=== PATIENT | female | born 1970 | race Caucasian/White ===

== ENCOUNTER 2018-01-03 19:24 | Emergency (ER) | payer OTHER, SELFPAY ==
[2018-01-03 19:25] VITALS: BP 149/78; PULSE 83; RESP 16; TEMP 36.7; O2SAT 98; BMI 34.7
[2018-01-03 20:08] VITALS: BP 121/66; PULSE 66; RESP 14; O2SAT 99
--- NOTE | 2018-01-03 20:32 | ED.VISSUMM ---
- ER Visit Summary Date of Service: 01/03/18 Chief Complaint: Left iliac crest skin rash History of Present Illness: The patient is a 47 F history of prior shingles 6 years ago. Pamella went to an urgent care. Was diagnosed with shingles. She said started last night became painful and worse today. Denies any other symptoms. Urgent care put on medications she did not have before and was concerned that these work the right medications acute in the ER for evaluation. Physical Examination: Well-appearing middle-age female. Vital signs are stable afebrile. HEENT exam unremarkable. Neck nontender no lymphadenopathy. Lungs clear to auscultation bilaterally. Heart regular rate and rhythm no murmur. Abdomen soft nontender normal bowel sounds no rash. Back her left iliac crest flank area has a linear rash consistent with early shingles. Currently there is no vesicles. There is no crusting. There is no petechiae or purpura. There is no pus or discharge. It is in a dermatomal pattern. Neurological exam is normal. Test Results: None Emergency Department Course and Treatment: Discharge to home Treatment Plan: Famvir and [place] for pain. Disposition: Discharge Impression: Acute left iliac crest skin rash consistent with early shingles This note was generated with [employer] dictation software. It may contain incorrect words, spelling, and punctuation that were not noted in review of the chart prior to signing ED Disposition - Plan for ED Patient: Chief Complaint: Rash Referrals: Jaycee Hall NP-C [Primary Care Provider] -
--- NOTE | 2018-01-03 20:34 | ED.DEP ---
ED Disposition - Plan for ED Patient: Disposition: Home or Assisted Living Chief Complaint: Rash Instructions: ED Shingles Prescriptions: Hydrocodone Bitart/Apap 5-325 [[place] 5/325] 1 - 2 tab PO Q4H PRN PRN #20 tab PRN Reason: Pain Famciclovir [Famvir] 500 mg PO TID 7 Days tab Referrals: Jaycee Hall, MARINE STEWARD-C [Primary Care Provider] - As Needed
[2018-01-03 20:41] VITALS: PULSE 72; RESP 14; O2SAT 98
[2018-01-03] MEDS: HYDROcodone Bitartrate/Apap 5/325 Tablet PO (20:41)
== END 2018-01-03 20:42 | disposition home or self-care (01) ==
PROVIDERS: Emergency Provider Emergency Medicine
DX: B02.9 Zoster without complications (principal); R21 Rash and other nonspecific skin eruption; Z72.0 Tobacco use
CPT/HCPCS: 99283

== ENCOUNTER 2018-06-25 17:11 | Emergency (ER) | payer OTHER, SELFPAY ==
[2018-06-25 17:12] VITALS: BP 138/98; PULSE 103; RESP 14; TEMP 33.2; O2SAT 97; BMI 33.7
--- NOTE | 2018-06-25 17:42 | ED.DCSUM_ITS ---
- ER Visit Summary Date of Service: 06/25/18 Chief Complaint: Nausea, vomiting, diarrhea History of Present Illness: The patient is a 47 F presents with nausea symptoms for 4 days. Symptoms started after eating breakfast at the parlor. Vomiting started next day total 4 episodes with no hematemesis. [place] well on Sunday. States yesterday had nausea. Today had 3 loose stools and 3 emesis. Unable to hold fluids down. Abdominal cramping secondary to the vomiting diarrhea. No sick contacts. Patient postmenopausal for 2 years. No allergies. Physical Examination: General: Alert and oriented ?3, no acute distress HEENT: Normocephalic, atraumatic. Mild dry mucosa membranes Neck: supple, nontender. Cardiovascular: Regular rate and rhythm, no murmurs Respiratory: Normal breath sounds, symmetric, no distress Abdomen: Soft, nontender, nondistended. Negative Blunt's or McBurney's tenderness. Extremities: Nontender, no edema, pulses intact ?4 Neuro: no focal neurological deficits. Test Results: Abdominal labs stable. Urine noted leukocytes however 10-25 squamous cells. Urine culture sent. Emergency Department Course and Treatment: Patient with a nonsurgical abdomen. She given IV fluid Zofran. Labs are stable. Urine had leukocytes however squamous cells. Urine culture sent. We will not treat at this time. She states she has had decreased urine output however no symptoms. Reevaluate states had mild cramping resolved with Levsin. She is orally challenge with no difficulties. Reevaluation abdomen soft. Treated symptomatically continue oral hydration at home. Follow-up as an outpatient. Signs and symptoms discussed questions answered. Treatment Plan: [] Disposition: Discharge Impression: 1. Nausea, vomiting, diarrhea 2. Nonspecific abdominal pain This note was generated with [employer] dictation software. It may contain incorrect words, spelling, and punctuation that were not noted in review of the chart prior to signing ED Disposition - Plan for ED Patient: Disposition: Home or Assisted Living Chief Complaint: Abd Pain Diagnosis: Nausea vomiting and diarrhea, Abdominal pain Instructions: ED Vomiting Diarrhea Nonspecific Ad Prescriptions: Ondansetron [Zofran Odt] 8 mg PO Q8H PRN PRN #10 tab PRN Reason: Nausea Dicyclomine HCl [Bentyl] 10 mg PO TIDAC PRN #10 capsule PRN Reason: abdominal cramping Referrals: Care Physician,No Primary [NON-STAFF] - Bernard Tesfaye MD [Primary Care Provider] - 3-5 Days if not improving
[2018-06-25] MEDS: Ondansetron 4 MG/2 ML Vial IV (17:53)
[2018-06-25] MEDS: 0.9% Normal Saline 1,000 ML 1000 ML IV (17:53)
[2018-06-25 18:04] LABS: Color, Urine Yellow (Yellow); Glucose, Dipstick Normal (Normal); Ketone-Dipstick Negative (Negative); Leukocyte Esterase-Dipstick 25 /ul (Negative); Nitrite-Dipstick Negative (Negative); Occult Blood-Urine 10 /ul (Negative); Protein-Dipstick 30 mg/dl (Negative); Urine Bilirubin Dipstick Negative (Negative); Urine Clarity Cloudy (Clear); Urine Urobilinogen 1 mg/dl (Normal)
[2018-06-25 18:14] LABS: Absolute Neutrophil Count 10.5 X10^3/uL (2.0-7.7); Basophil# 0.01 X10^3/uL; Basophil% 0.1 % (0-1); Differential Indicated SCAN CRITERIA MET; Eosinophil# 0.04 X10^3/uL; Eosinophils% 0.4 % (0-5); Hematocrit 42.5 % (37-47); Hemoglobin 14.8 g/dl (12.0-15.0); Lymphocyte % 3.5 % (19-41); Mean Corp Hgb Conc 34.8 g/gl (32-36); Mean Platelet Vol. 9.9 fl (6.2-12.0); Monocyte# 0.41 X10^3/uL; Monocyte% 3.6 % (0-10); Neutrophil # 10.54 X10^3/uL (2.7-7.7); Neutrophil % 92.2 % (47-70); POSITIVE COUNT NO; POSITIVE DIFFERENTIAL YES; POSITIVE MORPHOLOGY NO; Platelet Count 182 K/mm3 (150-450); RBC Distribution Width CV 13.3 % (11.6-14.6); Red Blood Count 4.94 M/mm3 (4.2-5.4); White Blood Count 11.4 K/mm3 (4.4-11.0)
[2018-06-25 18:26] LABS: AST(SGOT) 14 U/L (15-37); Alanine Aminotransfer ALT/SGPT 19 U/L (13-56); Albumin, Serum 3.7 g/dL (3.2-5.0); Alkaline Phosphatase 77 U/L (45-117); Anion Gap 6 (5-15); BUN 17 mg/dL (7-18); BUN/Creat Ratio 21.3 RATIO (10-20); Calcium,Total 8.3 mg/dL (8.5-10.1); Chloride 108 mmol/L (98-107); EST Glomerular Filtration Rate 82 mL/min (>60); Est Glom Filt Rate - Afr Amer 99 mL/min (>60); Estimated Creatinine Clearance 78.23 ml/min; Globulin 3.6 g/dL (2.2-4.2); Glucose 102 mg/dL (74-106); Lipase 166 U/L (73-393); Potassium 4.1 mmol/L (3.5-5.1); Protein, Total 7.3 g/dL (6.4-8.2); Sodium Level 140 mmol/L (136-145)
[2018-06-25 18:30] LABS: Differential Comment SCANNED
[2018-06-25 18:34] LABS: Bacteria 3+ /hpf (None Seen); Mucous, Urine 4+ /hpf (<or=2+); Red Blood Cells-Urine 0-5 SEEN /hpf (0-5); Squamous Epithelial Cells - UA 10-25 SEEN /hpf (5-10); White Blood Cells 0-5 SEEN /hpf (0-5)
[2018-06-25] MEDS: Hyoscyamine Sulfate 0.125 MG Tablet SUBLINGUAL (19:44)
[2018-06-25 21:01] VITALS: BP 139/72; PULSE 88; RESP 16; O2SAT 99
== END 2018-06-25 21:02 | disposition home or self-care (01) ==
PROVIDERS: Emergency Provider Emergency Medicine; Family Provider Family Medicine; PCP Family Medicine
DX: R11.2 Nausea with vomiting, unspecified (principal); R19.7 Diarrhea, unspecified; R10.9 Unspecified abdominal pain; R61 Generalized hyperhidrosis; Z78.0 Asymptomatic menopausal state; F17.200 Nicotine dependence, unspecified, uncomplicated
CPT/HCPCS: 80053; 81001; 83690; 85025; 87086; 87088; 96361; 96374; 99285; J7030; J2405

== ENCOUNTER → 2018-11-13 08:18 | Outpatient (CLI) | payer OTHER, SELFPAY ==
[2018-11-07 09:16] VITALS: BMI 33.7
--- NOTE | 2018-11-13 08:22 | RAD_ITS ---
STUDY: AIR-CONTRAST UPPER GI SERIES. REASON FOR EXAM: Female, 48 years old. Gastroesophageal reflux disease and dysphagia for solids. FLUOROSCOPY TIME (if supplied): (0:36) minutes/seconds. 21 images were obtained. TECHNIQUE: The patient ingested barium. Multiple images of the esophagus, stomach and duodenum were obtained. COMPARISON: None. FINDINGS: The esophagus is unremarkable. There is no evidence of obstruction. No mass lesion is seen. There is no evidence of gastroesophageal reflux. The stomach and duodenum are unremarkable. There is no mass lesion. No evidence of ulceration. RAD/Upper GI Series Only IMPRESSION: Unremarkable air-contrast upper GI series. Electronically Signed: Carlitos Roberts, at 13:19 EST , Service support ,
== END ==
PROVIDERS: Referring Provider Surgery; Visit Provider Surgery
DX: K21.9 Gastro-esophageal reflux disease without esophagitis (principal)
CPT/HCPCS: 74246

== ENCOUNTER 2018-11-22 10:18 | Day surgery (SDC) | payer OTHER, SELFPAY ==
[2018-11-07 09:16] VITALS: BMI 33.7
[2018-11-22] VITALS (15 sets, daily range): BP systolic 93–123; BP diastolic 54–101; PULSE 68–83; RESP 16–20; TEMP 35.9–36.6; O2SAT 92–100; BMI 36.2
--- NOTE | 2018-11-22 11:30 | IMM_PTH ---
PATIENT: YENY CERON LOC: [facility] U#:[id number] AGE/SX: 48/F ROOM: RE11/22/[address]: Dr. Blanca Mcguire MD : 1970 BED: DIS: 11/22/2018 SPEC #: [id number] RECD: 11/22/18 15:20 STATUS: LEVON REQ #: [id number] RISHABH: 11/22/18 11:[address]: Blanca Mcguire DEPT: IMMUNOHISTOCHEMISTRY RECD BY: Scarlet Steiner ENTERED: 11/22/18 15:20 SP TYPE: IMMUNO OTHR DR: Jaycee Hall, CONTRACT RUNNER-C [facility] Tissues: A - Stomach, NOS Procedures: H Pylori (initial) PHYSICIAN & INSTITUTION [place] [address] SPECIMEN INFORMATION: Tissue Source: A - Antral biopsy Clinical Info: GERD Specimen Number: [id number] CPT code: 32569 METHODOLOGY: Deparaffinized sections of prefer/formalin-fixed tissue or PAP/DQ stained slides are incubated with monoclonal/polyclonal antibodies/oligonucleotide probes. Localization is made via biotin free immunoperoxidase method. Appropriate controls are performed and reacted as expected. Results on target cell population are indicated in the following table: RESULTS: ANTIBODY / CLONE RESULT Block A H Pylori (polyclonal) negative These tests were developed and their performance characteristics determined by [facility]. They may not have been cleared or approved by the U.S. Food and Drug Administration. The FDA has determined that such clearance or approval is not necessary. INTERPRETATION: A. Antral biopsy: Negative for Helicobacter pylori organisms. SJ:twan 11/25/18
--- NOTE | 2018-11-22 11:30 | EGD_PTH ---
PATIENT: YENY CERON LOC: EN U#:[id number] AGE/SX: 48/F ROOM: RE11/22/[address]: Dr. Blanca Mcguire MD : 1970 BED: DIS: 11/22/2018 SPEC #: [id number] RECD: 11/22/18 13:29 STATUS: LEVON MILADY #: [id number] RISHABH: 11/22/18 11:[address]: Blanca Mcguire DEPT: SURGICAL PATHOLOGY RECD BY: Jose Cobian ENTERED: 11/22/18 14:06 SP TYPE: EGD BIOPSY JESSICA DR: Jaycee Hall, DRAW FRAME OPERATOR-C [facility] Tissues: A - Gastric mucous membrane B - Gastric mucous membrane Procedures: Surgery Specimen Level IV HEADER [place] [place] DIAGNOSIS: GERD TISSUE SUBMITTED: A - Antral biopsy for histo and H. pylori, B - GE junction biopsy MICROSCOPIC DIAGNOSIS A. Antral biopsy: Mild gastritis. See microscopic description and comment. B. GE junction, biopsy: Fragments of squamous epithelium with changes consistent with gastroesophageal reflux disease. Increased number of eosinophils are also noted suspicious for eosinophilic esophagitis. SJ:twan 11/25/18 COMMENT A. The results of immunohistochemistry for Helicobacter pylori will be reported separately ([id number]). Correlation with clinical, endoscopic findings and appropriate follow up are necessary. MICROSCOPIC DESCRIPTION Slides are reviewed. A. The specimen shows fragments of gastric mucosa with chronic inflammatory cell infiltrates in the lamina propria consisting of lymphocytes and plasma cells, consistent with mild chronic gastritis. GROSS DESCRIPTION A - Received in fixative is one container labeled with the patient's name and designated antral biopsy. The specimen consists of one irregular fragment of light lees soft tissue that measures 0.4 x 0.3 x 0.1 cm. The specimen is totally submitted in one cassette. B - Received in fixative is one container labeled with the patient's name and designated GE junction biopsy. The specimen consists of two irregular fragments of light lees soft tissue that in aggregate measure 0.6 x 0.3 x 0.1 cm. The specimen is totally submitted in one cassette. / AVA:twan 11/22/18 TC:3 CPT: 53815 x2
--- NOTE | 2018-11-22 11:48 | OP.ENDO_ITS ---
11/22/2018 Bernard Tesfaye Re : Upper GI endoscopy procedure for Mónica Tesfaye This procedure was performed on Thursday, November 22, 2018. My impressions and recommendations are as follows: Impressions : - Normal examined duodenum. - Erythematous mucosa in the antrum. Biopsied. - Z-line variable. Biopsied. Recommendations : - Discharge patient to home. - Await pathology results. - Continue present medications. My findings are described in the full procedure note, which is enclosed. If I can be of further assistance, please feel free to contact me at Doctor phone number(s): , Work: . Sincerely, MD Blanca Stone MD 11/22/2018 11:48:05 AM This report has been signed electronically.
--- NOTE | 2018-11-22 12:09 | RAD_ITS ---
STUDY: X-RAY CHEST REASON FOR EXAM: Female, 48 years old. Postop cough. TECHNIQUE: Single AP portable view of the chest. COMPARISON: PA and lateral chest x-ray June 22, 2015. FINDINGS: The lungs are mildly less fully expanded today. There is minor stranding consistent with regional crowding versus mild inflammatory change in the left midlung. No consolidating infiltrate. There is no demonstrated pleural abnormality. Normal size heart. Normal mediastinum and parisa. Normal visualized pulmonary arteries. Normal visualized aortic arch and descending thoracic aorta. There are stable degenerative changes of the lowermost thoracic spine. Normal visualized ribs, clavicles, and shoulders. There is no demonstrated abnormality of the visualized soft tissue structures of the upper abdomen. RAD/Chest 1 View (Portable) IMPRESSION: Suboptimal inspiratory effort with regional crowding versus mild interstitial inflammatory change in the left midlung. Electronically Signed: Anderson Hill MD at 13:06 EDT , Service support ,
[2018-11-22] MEDS: Albuterol 2.5 MG/3 ML VIAL.NEB. INHALATION (12:26)
== END 2018-11-22 14:18 | disposition home or self-care (01) ==
LOC: EN 10:19 → AC 10:21
PROVIDERS: Referring Provider Surgery; Visit Provider Surgery
PROC: 0DJ08ZZ Inspection of Upper Intestinal Tract, Via Natural or Artificial Opening Endoscopic (ICD-10-PCS; CPT 43235; principal; 2018-11-22 11:25)
DX: K21.9 Gastro-esophageal reflux disease without esophagitis (principal); R13.10 Dysphagia, unspecified; K29.70 Gastritis, unspecified, without bleeding; Z87.891 Personal history of nicotine dependence
CPT/HCPCS: 43239; 71045; 88305; 88342; 94640; J7120; J2405

== ENCOUNTER 2019-06-03 23:56 | Emergency (ER) | payer OTHER, SELFPAY ==
[2018-11-22 10:36] VITALS: BMI 36.2
[2019-06-03 23:57] VITALS: BP 152/88; PULSE 64; RESP 16; TEMP 36.8; O2SAT 99; BMI 37.1
--- NOTE | 2019-06-04 00:21 | RAD_ITS ---
STUDY: X-RAY - RIGHT FOOT CLINICAL: Female, 48 years old. Rolled ankle. Pain and swelling. TECHNIQUE: 3 view(s) of the foot. COMPARISON: None. FINDINGS: No visible fracture. No osseous destruction. Small plantar calcaneal spur. Alignment anatomic. Mild degenerative changes. Lateral ankle soft tissue swelling partially visible, please see ankle radiograph report. RAD/Foot min 3 Views IMPRESSION: No apparent foot fracture. Electronically Signed: Anson Chavarria, at 0:47 EDT Tel , Service support ,
--- NOTE | 2019-06-04 00:21 | RAD_ITS ---
STUDY: X-RAY - RIGHT ANKLE REASON FOR EXAM: Female, 48 years old. Lateral pain and swelling after rolling ankle. TECHNIQUE: 3 view(s) of the ankle. COMPARISON: None. FINDINGS: Acute nondisplaced fracture through the tip of the lateral malleolus with adjacent soft tissue swelling. Adjacent chronic corticated fragment either sequela of previous remote fracture or variant apophyseal remnant. No other fracture. Medial malleolus, posterior malleolus and talar dome intact. Plantar calcaneal spur, mild degenerative changes. RAD/Ankle min 3 Views IMPRESSION: Acute nondisplaced fracture through the tip of the lateral malleolus with adjacent soft tissue swelling. Electronically Signed: Anson Chavarria, at 0:51 EDT Tel , Service support ,
--- NOTE | 2019-06-04 01:47 | ED.VIS.GEN ---
History of Present Illness Chief Complaint: Lower Extremity Injury Informant: Patient Onset: Today Current Severity: Moderate Maximum Severity: Moderate Narrative: Patient twisted her right ankle prior to arrival. She is complaining of lateral pain she has no foot pain she has no knee pain she has no other injury. Pain is mild to moderate worse when she tries to bear any weight. Past Medical History - Allergies and Home Meds Allergies/Adverse Reactions: Allergies No Known Allergies Allergy (Verified 06/03/19 23:57) Primary Care Physician: Evon Bradford [Primary Care Provider] - Past Medical History: - - Noncontributory Surgical History: noncontributory Smoking Status: Current every day smoker Review of Systems Musculoskeletal: Reports: - - Right ankle pain is in HPI Skin: Denies: Abrasions, Wounds Neurological: Denies: Weakness, Parasthesia Hematologic: Denies: Easy bruising Physical Exam Vital Signs/Narrative: Vital Signs Temp Pulse Resp BP Pulse Ox 06/03/19 23:57 98.2 F 64 16 152/88 H 99 Cardiovascular: Regular rate, Regular rhythm Respiratory: No distress Abdomen: Soft, Nontender Back: Nontender Extremities: - - There is tenderness over the lateral malleolus. There is edema in that region. There is no laxity. There is no proximal fifth metatarsal pain or foot pain Skin: Normal color, No Trauma Neurological: Normal Strength, Normal Sensation Diagnostic/Tx/Re-eval Right ankle x-ray shows a nondisplaced lateral malleolus fracture. Normal mortise normal syndesmosis. Interpreted by emergency doctor - Medical Decision Making Patient has a lateral malleolus fracture, there is no displacement. There is no signs of instability I will place her in a walking boot give her crutches and analgesia. ED Disposition - Plan for ED Patient: Disposition: Home or Assisted Living Instructions: ANKLE FRACTURE (Distal Fibula), closed Prescriptions: Oxycodone HCl/Acetaminophen [Percocet 5/325] 1 tab PO Q6H PRN PRN 3 Days #12 tab PRN Reason: Pain Prescription Printed Referrals: Trung Nobles DO [STAFF PHYSICIAN] - 3-5 Days
[2019-06-04 02:37] VITALS: BP 152/79; PULSE 67; RESP 16; O2SAT 98
== END 2019-06-04 02:40 | disposition home or self-care (01) ==
PROVIDERS: Emergency Provider Emergency Medicine; Referring Provider Nurse Practitioner Family
DX: S82.64XA Nondisplaced fracture of lateral malleolus of right fibula, initial encounter for closed fracture (principal); X50.1XXA Overexertion from prolonged static or awkward postures, initial encounter; Y93.9 Activity, unspecified; Y92.9 Unspecified place or not applicable; F17.200 Nicotine dependence, unspecified, uncomplicated
CPT/HCPCS: 73610; 73630; 99284

== ENCOUNTER → 2019-07-07 09:02 | Outpatient (CLI) | payer OTHER, SELFPAY ==
[2019-07-07 07:53] VITALS: BMI 37.1
--- NOTE | 2019-07-07 09:03 | RAD_ITS ---
STUDY: X-RAY - RIGHT ANKLE REASON FOR EXAM: Female, 48 years old. Injury. Pain. TECHNIQUE: 3 view(s) of the ankle. COMPARISON: Right ankle, June 04, 2019. FINDINGS: Normal visualized distal tibia and fibula. Again seen is the osseous density at the tip of the lateral malleolus. This has the appearance of an os subfibularis however avulsion cannot be entirely ruled out. Normal tibiotalar articulation and ankle mortise. Normal visualized talus. Again seen is a large plantar spur along the underside of the calcaneus. The visualized subtalar, talonavicular, calcaneocuboid and tarsal articulations are normal. There is continued mild soft tissue swelling over the lateral ankle. RAD/Ankle min 3 Views IMPRESSION: Continued mild soft tissue prominence over the lateral ankle. It is uncertain whether the osseous density at the tip of the fibula is a os subfibularis or avulsion. Electronically Signed: Oleg Manzanares DO at 17:07 EDT Tel [phone], Service support ,
== END ==
PROVIDERS: Referring Provider Orthopaedic Surgery; Visit Provider Orthopaedic Surgery
DX: S82.61XA Displaced fracture of lateral malleolus of right fibula, initial encounter for closed fracture (principal)
CPT/HCPCS: 73610

== ENCOUNTER → 2019-08-04 09:14 | Outpatient (CLI) | payer OTHER, SELFPAY ==
[2019-08-04 08:47] VITALS: BMI 37.1
--- NOTE | 2019-08-04 09:15 | RAD_ITS ---
STUDY: X-RAY - RIGHT ANKLE REASON FOR EXAM: Ankle pain. TECHNIQUE: 3 view(s) of the ankle. COMPARISON: Radiographs 07/07/2019 and 06/04/2019. FINDINGS: There are 2 ossicles at the distal aspect of the lateral malleolus as on the prior studies. Normal tibiotalar articulation and ankle mortise. There is a plantar calcaneal enthesophyte. Otherwise, unremarkable visualized talus and calcaneus. The visualized subtalar, talonavicular, calcaneocuboid and tarsal articulations are normal. There is mild soft tissue swelling overlying the lateral malleolus. RAD/Ankle min 3 Views IMPRESSION: 2 ossicles at the distal aspect of the lateral malleolus without interval change. Plantar calcaneal enthesophyte. Electronically Signed: Oskar Carlisle MD at 12:16 EST Tel , Service support ,
== END ==
PROVIDERS: Referring Provider Orthopaedic Surgery; Visit Provider Orthopaedic Surgery
DX: S82.64XA Nondisplaced fracture of lateral malleolus of right fibula, initial encounter for closed fracture (principal)
CPT/HCPCS: 73610

== ENCOUNTER 2019-08-05 10:00 | Outpatient (RCR) | payer OTHER, SELFPAY ==
[2019-07-07 07:53] VITALS: BMI 37.1
--- NOTE | 2019-07-15 10:16 | HP.PTEVAL_ITS ---
Patient's Visit Information YENY CERON is a 48 year old F referred to Physical Therapy by Trung Nobles DO with a diagnosis of R ankle fx over tip of lateral malleolus. Date of Evaluation: 07/15/19 Physical Therapist: RAMESH Mata - Visit Plan Frequency: 2x /Week Duration: 4 Weeks Plan: 2X/ week for 4 weeks for R ankle AROM, R ankle strength, R ankle balance, gait training, stairs, functional activities wtih HEP - Subjective Findings: Pt reports that she fractured her ankle not stepping on something correctly. She had a boot on for almost 2 months (got it off last Sunday). SHe now has an ankle brace that she wears daily and takes it off at night. She reports that she is able to walk without the brace and she is cautious. SHe has decreased ROM when going down stairs and she has pain when she turns her foot in toward the L. She has no N&T. At work she goes from sitting to standing and stands on a mat at work. She can not put all her alysia through her R leg. She does not stand for more than 30-40 min and then it starts to hurt and then she sits. It feels tighter the longer she stands. - Pain R ankle pain Pain Intensity (Out of 10): 2 - Objective R ankle AROM: -2 degrees DF, 41 degrees PF, 34 degrees INV and 4 degrees EV. L ankle AROM: 6degrees DF, 60 degrees PF, 34degrees INV, 6 degrees EV. R girth: Med-Lat mal 23.6, Figure 8 49 and met heads 22.1. L Girth: 23.6, 49, 22.1. Gait: Walks with slight decrease stance time on the R LE with gait with brace on R ankle. Stairs: up and down recip with decreased ability to push off the step when descending stairs and decreased drive throught right foot when ascending the stairs. - Goals Goal 1:: I HEP Goal Time Frame: 4-6 Weeks Goal 2:: Increase R ankle AROM to 6 degrees DF (at time of eval: R ankle AROM: -2 degrees DF, 41 degrees PF, 34 degrees INV and 4 degrees EV. L ankle AROM: 6degrees DF, 60 degrees PF, 34degrees INV, 6 degrees EV Goal Time Frame: 4-6 Weeks Goal 3:: Walk without an antalgic gait without her brace on Goal Time Frame: 4-6 Weeks Goal 4:: Be able to go up and down stairs recip with a hand rail with good push off on the R foot. Goal Time Frame: 4-6 Weeks - Rehabilitation Potential Rehabilitation Potential: Good - Anticipated Interventions Patient/Client Instruction: Educate patient on: Condition For the Purpose of:: To decrease pain, To decrease swelling/inflammation, To increase ROM, To improve nutrient delivery to tissue, To improve muscle performance and motor function, To improve ability to perform ADL's, To improve gait and locomotor functions, To increase flexibility/ROM, To improve balance, To improve safety with gait Therapeutic Exercise to Include: Strength training, Balance training, Flexibilty training, Gait and locomotor training, Passive ROM, Active ROM For the Purpose of:: To decrease pain, To decrease swelling/inflammation, To increase ROM, To increase oxygenation perfusion, To improve muscle performance and motor function, To improve ability to perform ADL's, To increase tolerance to activity/condition/position, To improve performance and independence with ADL's, To improve ability of physical actions for home/community/work/leisure, To improve gait and locomotor functions, To decrease soft tissue restriction, To increase flexibility/ROM, To improve balance, To improve safety with gait Manual Therapy Techniques to Include: Mobilization, Passive ROM For the Purpose of:: To increase ROM, To improve nutrient delivery to tissue Cryotherapy (ice pack, ice massage): Yes For the Purpose of:: To decrease pain, To decrease swelling/inflammation Thank you for the opportunity to evaluate your patient. For Medicare and Medicare HMO plans, please review the plan of care and approve it. It will need to be FAXED BACK to us at [phone] for Medicare purposes. For Medicare only, by signing this I certify the plan of care. Please let me know if there are questions or concerns regarding this plan of care. Physician Signature: Date:
--- NOTE | 2019-12-02 12:35 | HP.PTDCNRP_ITS ---
YENY CERON was seen in my office for initial evaluation on 07/15/19. The following Plan of Care was established for this patient: Initial Frequency: 2x /Week Initial Duration: 4 Weeks Patient/Client Instruction: Educate patient on: Condition For the Purpose of:: To decrease pain, To decrease swelling/inflammation, To increase ROM, To improve nutrient delivery to tissue, To improve muscle performance and motor function, To improve ability to perform ADL's, To improve gait and locomotor functions, To increase flexibility/ROM, To improve balance, To improve safety with gait Therapeutic Exercise to Include: Strength training, Balance training, Flexibilty training, Gait and locomotor training, Passive ROM, Active ROM For the Purpose of:: To decrease pain, To decrease swelling/inflammation, To increase ROM, To increase oxygenation perfusion, To improve muscle performance and motor function, To improve ability to perform ADL's, To increase tolerance to activity/condition/position, To improve performance and independence with ADL's, To improve ability of physical actions for home/community/work/leisure, To improve gait and locomotor functions, To decrease soft tissue restriction, To increase flexibility/ROM, To improve balance, To improve safety with gait Manual Therapy Techniques to Include: Mobilization, Passive ROM For the Purpose of:: To increase ROM, To improve nutrient delivery to tissue Cryotherapy (ice pack, ice massage): Yes For the Purpose of:: To decrease pain, To decrease swelling/inflammation This patient was last seen in our office 08/05/19. Pertinent comments regarding their Physical therapy will appear below: Pt cancelled her last couple of appointments with us and will be discharged at this time. [facility] PT. At this point I will be discontinuing this patient from physical therapy. I would be happy to see this patient again in the future if found appropriate by t he physician. Thank you! Zo Okeefe, MPT
== END 2019-08-05 19:00 | disposition home or self-care (01) ==
LOC: PT 10:00
PROVIDERS: Referring Provider Orthopaedic Surgery; Visit Provider Orthopaedic Surgery
DX: S82.61XD Displaced fracture of lateral malleolus of right fibula, subsequent encounter for closed fracture with routine healing (principal)
CPT/HCPCS: 97110; 97161

== ENCOUNTER → 2020-11-12 10:47 | Outpatient (CLI) | payer OTHER, SELFPAY ==
[2019-08-04 08:47] VITALS: BMI 37.1
[2020-11-12 11:21] LABS: Absolute Lymphocyte Count 1.49 X10^3/uL (0.83-4.51); Absolute Neutrophil Count 4.2 X10^3/uL (2.0-7.7); Basophil# 0.04 X10^3/uL; Basophil% 0.6 % (0-1); Eosinophil# 0.15 X10^3/uL; Eosinophils% 2.3 % (0-5); Hematocrit 37.7 % (37-47); Hemoglobin 13.1 g/dL (12.0-15.0); Lymphocyte # 1.49 X10^3/ul (4.0); Mean Corp Hgb Conc 34.7 g/dL (32-36); Mean Corpuscular Hgb 30.4 pg (27.0-32.0); Mean Corpuscular Volume 87.5 fL (81-99); Mean Platelet Vol. 9.7 fl (6.2-12.0); Monocyte# 0.51 X10^3/uL; Monocyte% 7.9 % (0-10); NRBC Flagged by Analyzer 0 % (0-5); Neutrophil # 4.24 X10^3/uL (2.7-7.7); Neutrophil % 65.6 % (47-70); Platelet Count 164 K/mm3 (150-450); RBC Distribution Width CV 13.6 % (11.6-14.6); RBC Distribution Width SD 41.5 fl (35.1-43.9); Red Blood Count 4.31 M/mm3 (4.2-5.4); White Blood Count 6.5 K/mm3 (4.4-11.0)
[2020-11-12 11:29] LABS: D-Dimer Quantitative (DVT/PE) 0.32 FEU/ug/m (0.27-0.49)
[2020-11-12 12:02] LABS: ALB/GLOB Ratio 1.1 RATIO (0.9-2.4); AST(SGOT) 19 U/L (15-37); Alanine Aminotransfer ALT/SGPT 30 U/L (13-56); Albumin, Serum 3.7 g/dL (3.2-5.0); Alkaline Phosphatase 67 U/L (45-117); Anion Gap 3 (5-15); BUN 14 mg/dL (7-18); BUN/Creat Ratio 18.2 RATIO (10-20); CPK Total, Creatine Kinase 90 U/L (26-192); Calcium,Total 8.4 mg/dL (8.5-10.1); Chloride 109 mmol/L (98-107); Cholesterol 191 mg/dL (200); Creatinine, Serum 0.77 mg/dL (0.55-1.02); EST Glomerular Filtration Rate 84 mL/min (>60); Est Glom Filt Rate - Afr Amer 102 mL/min (>60); Globulin 3.5 g/dL (2.2-4.2); Glucose 91 mg/dL (74-106); High Density Lipoprotein 60 mg/dL; Potassium 4.5 mmol/L (3.5-5.1); Protein, Total 7.2 g/dL (6.4-8.2); Sodium Level 141 mmol/L (136-145); Thyroid Stim Hormone (TSH) 1.86 uIU/mL (0.358-3.74); Triglycerides 80 mg/dL; Very Low Density Lipoprotein 16 mg/dL (5-40)
[2020-11-13 13:19] LABS: Thyroid Peroxidase AB 14 IU/mL (0-34)
== END ==
DX: M79.605 Pain in left leg (principal); F33.0 Major depressive disorder, recurrent, mild
CPT/HCPCS: 36415; 80053; 80061; 82550; 84436; 84443; 85025; 85379; 86376

== ENCOUNTER → 2020-11-22 15:24 | Outpatient (CLI) | payer OTHER, SELFPAY ==
[2019-08-04 08:47] VITALS: BMI 37.1
== END ==
PROVIDERS: Referring Provider Nurse Practitioner Adult Health; Visit Provider Nurse Practitioner Adult Health
DX: F33.0 Major depressive disorder, recurrent, mild (principal); M79.605 Pain in left leg
CPT/HCPCS: 82274

== ENCOUNTER → 2021-06-02 09:55 | Outpatient (CLI) | payer OTHER, SELFPAY ==
--- NOTE | 2021-06-02 10:11 | CT_ITS ---
STUDY: CT ABDOMEN AND PELVIS WITHOUT CONTRAST REASON FOR EXAM: Female, 50 years old. R/O ILEUS. Abdominal pain. RADIATION DOSAGE (If Supplied By Facility): CTDIvol = ( 24.07 ) mGy, DLP = ( 1335.02 ) mGycm TECHNIQUE: Transaxial images were obtained from the dome of the diaphragm to the symphysis pubis without oral contrast, and without intravenous contrast. Sagittal and coronal images were reconstructed. Individualized dose optimization techniques were used for this CT. COMPARISON: None. FINDINGS: Mild degree of increased markings at the lung bases suggestive of atelectasis. The visualized portions of the heart are within normal limits. There is decreased attenuation of the liver consistent with steatosis. Normal gallbladder and extrahepatic biliary system. Normal spleen. Normal pancreas. There is a small, circumscribed, smooth, low attenuation left adrenal mass, consistent with an adrenal adenoma. It measures 1.8 cm x 1.9 cm. Normal right adrenal gland. Normal right kidney. Normal left kidney. There is a small hiatal hernia. Normal small intestine. There is diffuse circumferential wall thickening of the ascending colon and cecum. There is diffuse thickening of the terminal ileum. Increased markings are seen in the surrounding peritoneal fat. Small lymph nodes are seen in the mesentery. Thickening of the sigmoid colon. The appendix is visualized and appears normal. There is scattered atherosclerotic calcification of the abdominal aorta, without a demonstrated aneurysm. Normal inferior vena cava. There is retroperitoneal lymphadenopathy with enlarged nodes greater than 10-15mm in the short axis. Normal urinary bladder. Small amount of free fluid in the pelvis. Normal abdominal wall. Normal osseous structures. CT/Abdomen/Pelvis without Cont IMPRESSION: Diffuse circumferential wall thickening of the cecum and ascending colon as well as the terminal ileum with adenopathy in the mesentery of the right lower quadrant with increased markings. Thickening of the sigmoid colon suggestive of colitis. Small amount of free fluid in the pelvis. Fatty infiltration of the liver. 1.8 cm x 1.9 cm adenoma in the left adrenal gland. Electronically Signed: Carlitos Roberts MD at 12:54 EDT , Service support ,
--- NOTE | 2021-06-02 10:13 | RAD_ITS ---
STUDY: X-RAY - ABDOMEN/PELVIS REASON FOR EXAM: Female, 50 years old. R/O ILEUS TECHNIQUE: Single AP view of the abdomen / pelvis. COMPARISON: None. FINDINGS: Normal visualized lung bases. There is a moderate amount of colonic fecal material. The visualized liver, spleen and kidneys are grossly normal in size and morphology. Tubal ligation clips are seen in the pelvis. Normal visualized osseous structures. RAD/Abdomen Single View IMPRESSION: Normal x-ray examination of the abdomen and pelvis. Electronically Signed: Carlitos Roberts MD at 11:09 EDT , Service support ,
[2021-06-02 11:07] LABS: Absolute Lymphocyte Count 1.38 X10^3/uL (0.83-4.51); Absolute Neutrophil Count 6.9 X10^3/uL (2.0-7.7); Basophil# 0.05 X10^3/uL; Basophil% 0.5 % (0-1); Eosinophil# 0.15 X10^3/uL; Eosinophils% 1.6 % (0-5); Hematocrit 40.7 % (37-47); Hemoglobin 13.6 g/dL (12.0-15.0); Lymphocyte # 1.38 X10^3/ul (0.83-4.51); Lymphocyte % 15.1 % (19-41); Mean Corp Hgb Conc 33.4 g/dL (32-36); Mean Corpuscular Hgb 27.9 pg (27.0-32.0); Mean Corpuscular Volume 83.6 fL (81-99); Mean Platelet Vol. 9.7 fl (6.2-12.0); Monocyte# 0.64 X10^3/uL; NRBC Flagged by Analyzer 0 % (0-5); Neutrophil # 6.88 X10^3/uL (2.7-7.7); Neutrophil % 75.5 % (47-70); Platelet Count 239 K/mm3 (150-450); RBC Distribution Width SD 39.6 fl (35.1-43.9); Red Blood Count 4.87 M/mm3 (4.2-5.4); White Blood Count 9.1 K/mm3 (4.4-11.0)
[2021-06-02 11:37] LABS: ALB/GLOB Ratio 0.8 RATIO (0.9-2.4); AST(SGOT) 62 U/L (15-37); Alanine Aminotransfer ALT/SGPT 80 U/L (13-56); Albumin, Serum 3.5 g/dL (3.2-5.0); Alkaline Phosphatase 78 U/L (45-117); Anion Gap 4 (5-15); BUN 11 mg/dL (7-18); Calcium,Total 8.6 mg/dL (8.5-10.1); Chloride 107 mmol/L (98-107); Creatinine, Serum 0.73 mg/dL (0.55-1.02); EST Glomerular Filtration Rate 89 mL/min (>60); Est Glom Filt Rate - Afr Amer 108 mL/min (>60); Globulin 4.3 g/dL (2.2-4.2); Glucose 99 mg/dL (74-106); Lipase 115 U/L (73-393); Potassium 3.9 mmol/L (3.5-5.1); Protein, Total 7.8 g/dL (6.4-8.2); Sodium Level 138 mmol/L (136-145)
== END ==
PROVIDERS: Referring Provider Nurse Practitioner Adult Health; Visit Provider Nurse Practitioner Adult Health
DX: R10.84 Generalized abdominal pain (principal)
CPT/HCPCS: 36415; 74018; 74176; 80053; 83690; 85025

== ENCOUNTER → 2021-06-09 07:30 | Outpatient (CLI) | payer OTHER, SELFPAY ==
--- NOTE | 2021-06-09 07:33 | US_ITS ---
STUDY: ABDOMINAL ULTRASOUND REASON FOR EXAM: Female, 50 years old. Generalized abdominal pain. Recent diagnosis of colitis. TECHNIQUE: Transabdominal ultrasound was performed with real-time and static allen scale imaging. TECHNICAL QUALITY: Limited. Examination limited due to a combination of factors including obesity and bowel gas. COMPARISON: None. FINDINGS: Liver: The liver measures 18 cm. There is increased echogenicity consistent with fatty infiltration. The bile ducts are within normal limits. There is hepatic color flow. The direction of portal flow is hepatopetal. There is no demonstrated mass lesion. Portal vein measurement: Gallbladder: Normal distended gallbladder. The gallbladder wall measures 2.5 mm. There is a negative sonographic Blunt''s sign. There is no pericholecystic fluid. There are no gallstones. Common Bile Duct (C.B.D.): The common bile duct measures 4.5 mm. Pancreas: There is nonvisualization of the pancreas due to overlying bowel gas. Spleen: Normal size of the spleen. The spleen measures 12.5 cm x 4.9cm x 4.7 cm. Right Kidney: Normal size of the right kidney. The right kidney measures 11.8 cm x 5.3 cm x 4.7 cm. Normal renal cortex. The right cortex measures 1.9 cm. There is no demonstrated renal mass or cyst. There is no right hydronephrosis. Left Kidney: Normal size of the left kidney. The left kidney measures 12.5 cm x 5.4 cm x 5.9 cm. Normal renal cortex. The left cortex measures 2.0 cm. There is no demonstrated renal mass or cyst. There is no left hydronephrosis. Aorta: Limited visualization due to bowel gas. I.V.C.: The IVC is patent. There is no ascites. US/Abdomen Complete IMPRESSION: Fatty infiltrated liver. Electronically Signed: Carlitos Roberts MD at 10:11 EDT , Service support ,
== END ==
PROVIDERS: Referring Provider Nurse Practitioner Adult Health; Visit Provider Nurse Practitioner Adult Health
DX: R10.84 Generalized abdominal pain (principal)
CPT/HCPCS: 76700

== ENCOUNTER 2021-06-13 11:12 | Inpatient (IN) | payer OTHER, SELFPAY ==
[2021-06-13 11:13] VITALS: BP 149/91; PULSE 102; RESP 16; TEMP 36.2; O2SAT 97; BMI 41.1
--- NOTE | 2021-06-13 11:35 | RAD_ITS ---
History: Chest pain EXAMINATION/TECHNIQUE: XR Chest 1 View: Portable COMPARISON: November 22, 2018 FINDINGS: LINES/DEVICES: None. LUNGS: No consolidation, edema or effusion. No pneumothorax. MEDIASTINUM AND CARDIOVASCULAR STRUCTURES: Cardiac silhouette not enlarged. Central airways and mediastinal contour are unremarkable. BONES AND SOFT TISSUES: Unremarkable. RAD/Chest 1 View IMPRESSION: No radiographic evidence of acute cardiopulmonary disease. at 1201 Reported and signed by: Giovany Coffman MD Electronically Signed: Giovany Coffman MD at 11:59 EDT Tel , Service support ,
[2021-06-13 11:47] LABS: Absolute Lymphocyte Count 1.37 X10^3/uL (0.83-4.51); Absolute Neutrophil Count 10.9 X10^3/uL (2.0-7.7); Basophil# 0.04 X10^3/uL; Basophil% 0.3 % (0-1); Eosinophil# 0.15 X10^3/uL; Eosinophils% 1.1 % (0-5); Hematocrit 42.1 % (37-47); Hemoglobin 14.1 g/dL (12.0-15.0); Lymphocyte # 1.37 X10^3/ul (0.83-4.51); Mean Corp Hgb Conc 33.5 g/dL (32-36); Mean Corpuscular Hgb 28.1 pg (27.0-32.0); Mean Corpuscular Volume 83.9 fL (81-99); Mean Platelet Vol. 9.3 fl (6.2-12.0); Monocyte# 1.15 X10^3/uL; Monocyte% 8.4 % (0-10); NRBC Flagged by Analyzer 0 % (0-5); Neutrophil # 10.89 X10^3/uL (2.7-7.7); Neutrophil % 79.7 % (47-70); Platelet Count 270 K/mm3 (150-450); RBC Distribution Width CV 12.8 % (11.6-14.6); Red Blood Count 5.02 M/mm3 (4.2-5.4); White Blood Count 13.7 K/mm3 (4.4-11.0)
[2021-06-13 12:05] LABS: ALB/GLOB Ratio 0.7 RATIO (0.9-2.4); AST(SGOT) 10 U/L (15-37); Alanine Aminotransfer ALT/SGPT 18 U/L (13-56); Albumin, Serum 3.2 g/dL (3.2-5.0); Alkaline Phosphatase 60 U/L (45-117); Anion Gap 7 (5-15); BUN 9 mg/dL (7-18); BUN/Creat Ratio 12.5 RATIO (10-20); Calcium,Total 9.2 mg/dL (8.5-10.1); Chloride 102 mmol/L (98-107); Creatinine, Serum 0.72 mg/dL (0.55-1.02); EST Glomerular Filtration Rate 91 mL/min (>60); Est Glom Filt Rate - Afr Amer 110 mL/min (>60); Estimated Creatinine Clearance 80.72 ml/min; Globulin 4.5 g/dL (2.2-4.2); Glucose 124 mg/dL (74-106); Protein, Total 7.7 g/dL (6.4-8.2); Sodium Level 137 mmol/L (136-145)
--- NOTE | 2021-06-13 12:58 | EDS_ITS ---
HPI HPI - GI History of Present Illness Chief Complaint: Abd Pain Informant: patient Abdominal Pain/Flank Pain Onset: Weeks (2) Context: Gradual Onset Timing: Continuous Quality: - (Squeezing) Location: Epigastric, RUQ and LUQ Worsened by: Nothing Relieved by: Nothing Nausea/Vomiting/Emesis GI Symptom: Positive for Nausea and Vomiting Quality: Negative for Coffee ground and Hematemesis Diarrhea/Melena/Hematochezia GI Symptom: Negative for Diarrhea, Melena and Hematochezia Associated Symptoms Associated Symptoms: Positive for Hematuria; Negative for Dysuria, Frequency and Urgency Narrative Narrative: Patient presents with abdominal pain that has been constant for the past 2 weeks. Patient states she was diagnosed with colitis. Patient states that her symptoms have not gotten any better. Patient states her pain is over her upper abdomen. Patient states it feels like somebody is squeezing her. Patient states it radiates into her back. Patient states nothing makes it worse and nothing makes it better. Patient admits to some nausea and vomiting. Patient denies any hematemesis or coffee-ground emesis. Patient denies any diarrhea, melena, or hematochezia. Patient admits to some hematuria but denies any dysuria or urgency. PFSH PFS Medical History GERD (gastroesophageal reflux disease) Home Medications buspirone 10 mg PO BID 06/13/21 [History Last Taken 06/11/21] escitalopram oxalate 20 mg PO DAILY 06/13/21 [History Last Taken 06/11/21] famotidine 20 mg PO BID 06/13/21 [History Last Taken 06/11/21] hyoscyamine sulfate 0.375 mg PO Q8H PRN 06/13/21 [History Last Taken 06/13/21] Allergy/AdvReac Type Severity Reaction Status Date / Time No Known Allergies Allergy Verified 06/03/19 23:57 Family History Father Diabetes Mother Hypertension Brother Hypertension Surgical History S/P section S/P rotator cuff repair Social History Smoking Status: Never smoker alcohol intake: never ROS ROS ED Constitutional Constitutional ED: Denies chills or fever(s) Eyes Eyes: Denies blurry vision or change in vision ENT ENT ED: Denies rhinorrhea or sore throat Cardiovascular Cardiovascular: Denies chest pain or palpitations Respiratory/Chest Respiratory/Chest: Reports dyspnea; Denies cough Gastrointestinal Gastrointestinal: Reports abdominal pain, nausea and vomiting Genitourinary Genitourinary ED: Reports hematuria; Denies dysuria Musculoskeletal Musculoskeletal: Reports back pain; Denies neck pain Integumentary Denies abscess or rash Neurologic Neurologic: Reports weakness; Denies headache(s) Allergic/Immunologic Allergic/Immunologic ED: Denies mouth swelling or urticaria EXAM Physical Exam Const Vital Signs: 06/13/21 11:13 06/13/21 14:14 Temperature 97.1 F L Temperature Source Temporal Pulse Rate 102 H 86 Respiratory Rate 16 Blood Pressure 149/91 H 154/84 H Blood Pressure Mean 110 107 Pulse Ox 97 99 Oxygen Delivery Method Room Air Room Air Positive well nourished and well developed General Appearance ED: well developed HEENT Reports moist mucous membranes Neck supple and no JVD Resp normal respiratory effort and clear to auscultation bilaterally Cardio regular rate, regular rhythm and no murmurs GI normal to inspection, nondistended, normoactive bowel sounds and non-distended Auscultation: normoactive bowel sounds Palpation: soft and tender epigastric, LUQ and RUQ; Negative for guarding or rebound tenderness present Extremity normal to inspection General Extremety ED: Negative for edema or tenderness General Extremity: Negative for edema Neuro oriented x3, CN's II-XII intact bilaterally and no sensory deficits noted Sensorium / Orientation: alert Motor Exam: strength 5/5 throughout Psych mental status grossly normal Skin no rashes or lesions noted MDM MDM MDM Narrative Medical decision making narrative: Patient was given IV fluids here. CBC shows a mild leukocytosis of 13.7. Comprehensive metabolic profile was essentially within normal limits. Lipase was elevated at 1186. Portable 1 view chest x-ray was obtained. On my interpretation, lung villagomez are clear. There is normal cardiac silhouette. Bony thorax is normal. There is no acute process noted. Radiologist also interpreted the x-ray and agrees. Patient states that when she was diagnosed with colitis 2 weeks ago she had a CT scan done at that time which was negative. I did not repeat this today because of the recent CT scan. Case was discussed with the hospitalist. She will admit the patient to her service. Patient understood and was agreeable with the plan. All questions were answered. Lab Data Attestation: I reviewed the patient's lab results. Labs: Laboratory Results - last 24 hr 06/13/21 06/13/21 06/13/21 11:35 11:35 11:35 WBC 13.7 H RBC 5.02 Hgb 14.1 Hct 42.1 MCV 83.9 MCH 28.1 MCHC 33.5 RDW Std Deviation 39.0 RDW Coeff of Mohsen 12.8 Plt Count 270 MPV 9.3 Immature Gran % (Auto) 0.500 Neut % (Auto) 79.7 H Lymph % (Auto) 10.0 L [place] % (Auto) 8.4 Eos % (Auto) 1.1 Baso % (Auto) 0.3 Absolute Neuts (auto) 10.9 H Absolute Lymphs (auto) 1.37 Nucleated RBC % 0 Sodium 137 Potassium 4.0 Chloride 102 Carbon Dioxide 28.0 Anion Gap 7 BUN 9 Creatinine 0.72 Estim Creat Clear Calc 80.72 Est GFR (MDRD) Af Amer 110 Est GFR (MDRD) Non-Af 91 BUN/Creatinine Ratio 12.5 Glucose 124 H Calcium 9.2 Total Bilirubin 0.40 AST 10 L ALT 18 Alkaline Phosphatase 60 Total Protein 7.7 Albumin 3.2 Globulin 4.5 H Albumin/Globulin Ratio 0.7 L Lipase 1186 H Radiography Diagnostic Testing: Radiology Impression Chest X-Ray 06/13/21 11:35 IMPRESSION: No radiographic evidence of acute cardiopulmonary disease. at 1201 Reported and signed by: Giovany Coffman MD Electronically Signed: Giovany Coffman MD at 11:59 EDT Tel , Service support , Treatment and Re-Evaluation Vital Sign Attestation:: Vital signs were reviewed prior to admission. They are stable. Discharge Plan Dx/Rx/DC Orders Clinical Impression: Acute pancreatitis Disposition Disposition: Acute Care Hospital [facility] Discharge Date/Time: 06/13/21 15:56
[2021-06-13] MEDS: 0.9% Normal Saline 1,000 ML 1000 ML IV (13:23)
[2021-06-13 13:39] LABS: Lipase 1186 U/L (73-393)
--- NOTE | 2021-06-13 14:09 | HP.PCM.HOS_ITS ---
HPI - General General Date of Admission: 06/13/21 Date of Service: 06/13/21 Chief Complaint: Abdominal pain HPI Narrative The patient is a 50 y/o F w/ PMHx: Anxiety and Depression, Morbid Obesity, GERD, Former Tobacco use, recent diagnosis of colitis at the [facility] pain clinic treated with an unclear type of antibiotic however patient did not improve and therefore at that time was sent for CT abdomen and pelvis on 06/02/2021 with n oted at that time due to circumferential wall thickening of the cecum and ascending colon as well as the terminal ileum with adenopathy in the mesentery of the right lower quadrant with increased markings suggestive of sigmoid colitis with a small amount of free fluid in the pelvis, fatty infiltration of the liver and 1.8 similar by 1.9 cm adenoma in the left adrenal gland with ongoing pain despite treatment with antibiotic course within follow-up abdominal ultrasound on 06/09/2021 with normal distended gallbladder with a negative sonographic Blunt sign with no pericholecystic fluid or gallstones at that time and nonvisualization of the pancreas with fatty liver who presents to the [facility] ED on 06/13/21 with history of 2-week history of worsening abdominal pain, epigastric as well as bilateral upper quadrants with associated nausea and emesis with associated loose stools describing her abdomen is being squeezed with radiation toward her back with no improvement with any specific medication or any interventions prompting eventual ED presentation. Patient reports also recent mild hematuria but no dysuria or any urgency associated. In the ED patient ministered 1 L normal saline bolus. Work-up in the ED included T 97 4, heart rate 102, BP 149/91, respiratory rate 16, 97% on room air, CBC with WBC 13.7, hemoglobin 14.1, platelet 270 with left shift, CMP with glucose 124 otherwise not marked appearing, lipase 1186, chest x-ray with no acute cardiopulmonary findings. In the ED patient ministered 1 L normal saline bolus. [facility] Medical History (Updated 06/13/21 @ 19:[address] Lizeth James MD) Anxiety and depression Former tobacco use GERD (gastroesophageal reflux disease) Morbid obesity Home Medications buspirone 10 mg PO BID 06/13/21 [History Last Taken 06/11/21] escitalopram oxalate 20 mg PO DAILY 06/13/21 [History Last Taken 06/11/21] famotidine 20 mg PO BID 06/13/21 [History Last Taken 06/11/21] hyoscyamine sulfate 0.375 mg PO Q8H PRN 06/13/21 [History Last Taken 06/13/21] Allergy/AdvReac Type Severity Reaction Status Date / Time No Known Allergies Allergy Verified 06/03/19 23:57 Family History Father Diabetes Mother Hypertension Brother Hypertension Surgical History (Updated 06/13/21 @ 19:[address] Lizeth James MD) S/P section S/P rotator cuff repair Social History (Updated 06/13/21 @ 19:[address] Lizeth James MD) household members: family Smoking Status: Former smoker how long ago did patient quit smoking: Quit 2 years prior, smoked 1/2 ppd since she was a teenager until quitting. alcohol intake: never substance use type: does not use ROS ROS Narrative Admission Review of Systems: CONSTITUTIONAL: No weight loss, fever, chills, + weakness or fatigue. HEENT: Eyes: No visual loss, blurred vision, double vision or yellow sclerae. Ears, Nose, Throat: No hearing loss, sneezing, congestion, runny nose or sore throat. SKIN: No rash or itching, lesions, wounds. CARDIOVASCULAR: No chest pain, chest pressure or chest discomfort, palpitations, edema, orthopnea, syncopal events. RESPIRATORY: No shortness of breath, cough or sputum, wheezing, hemoptysis. GASTROINTESTINAL: + anorexia, nausea, vomiting, diarrhea, abdominal pain, No melena, BRBPR. GENITOURINARY: No dysuria, frequency, urgency or retention. NEUROLOGICAL: No headache, dizziness, syncope, paralysis, ataxia, numbness or tingling in the extremities, focal weakness, change in bowel or bladder control, seizure. MUSCULOSKELETAL: + muscle, back pain, joint pain or stiffness. HEMATOLOGIC: No anemia, bleeding or bruising. LYMPHATICS: No enlarged nodes. No history of splenectomy. PSYCHIATRIC: + history of depression or anxiety. ENDOCRINOLOGIC: No reports of sweating, cold or heat intolerance. No polyuria or polydipsia. ALLERGIES: No history of asthma, hives, eczema or rhinitis. Vital Signs Vital Signs Vital Signs: 06/13/21 11:13 Temperature 97.1 F L Temperature Source Temporal Pulse Rate 102 H Respiratory Rate 16 Blood Pressure 149/91 H Blood Pressure Mean 110 Pulse Ox 97 Oxygen Delivery Method Room Air Weight Weight: 240 lb Body Mass Index (BMI) 41.1 Physical Exam Narrative Physical Examination: General: Awake, alert, oriented x 3 and cooperative, seated upright in the ED bed, fatigued uncomfortable appearing. Skin: Normal color, normal turgor, no icterus, no cyanosis. HEENT: AT/NC, EOMI, PERRLA, dry MM, no carotid bruits or JVD noted. Lungs: Mildly diminished, greater bases, moderate effort, no rales, ronchi or wheezing. Heart: Tachycardic with regular rhythm; no gallop, rub audible. Abdomen: Soft, morbidly obese, significant epigastric and primarily right upper quadrant tenderness to palpation, mildly hyperactive distant bowel sounds, no obvious HSM however difficult exam given habitus and pain elicited. Extremities: No cyanosis, clubbing, or edema. Neurological: Patient awake, alert, oriented as noted, cognitive function intact; pupils equally reactive to light and accommodation, cranial nerves II- XII grossly normal, moving all 4 extremities, no focal deficits, strength moderately global decrease secondary to acute presentation. Psychiatric: Affect appears fatigued, uncomfortable appearing, no acute evidence of depressive or anxiety feelings. Results Lab / Micro Data Result Diagrams: 06/13/21 11:35 06/13/21 11:35 Labs: Laboratory Results - last 24 hr 06/13/21 11:35: WBC 13.7 H, RBC 5.02, Hgb 14.1, Hct 42.1, MCV 83.9, MCH 28.1, MCHC 33.5, RDW Std Deviation 39.0, RDW Coeff of Mohsen 12.8, Plt Count 270, MPV 9.3, Immature Gran % (Auto) 0.500, Neut % (Auto) 79.7 H, Lymph % (Auto) 10.0 L, [place] % (Auto) 8.4, Eos % (Auto) 1.1, Baso % (Auto) 0.3, Absolute Neuts (auto) 10.9 H, Absolute Lymphs (auto) 1.37, Nucleated RBC % 0 06/13/21 11:35: Sodium 137, Potassium 4.0, Chloride 102, Carbon Dioxide 28.0, Anion Gap 7, BUN 9, Creatinine 0.72, Estim Creat Clear Calc 80.72, Est GFR (MDRD) Af Amer 110, Est GFR (MDRD) Non-Af 91, BUN/Creatinine Ratio 12.5, Glucose 124 H, Calcium 9.2, Total Bilirubin 0.40, AST 10 L, ALT 18, Alkaline Phosphatase 60, Total Protein 7.7, Albumin 3.2, Globulin 4.5 H, Albumin/Globulin Ratio 0.7 L 06/13/21 11:35: Lipase 1186 H Radiology Impression Chest X-Ray 06/13/21 11:35 IMPRESSION: No radiographic evidence of acute cardiopulmonary disease. at 1201 Reported and signed by: Giovany Coffman MD Electronically Signed: Giovany Coffman MD at 11:59 EDT Tel , Service support , Assessment & Plan Assessment/Plan (1) Acute pancreatitis: QUALIFIERS: Pancreatitis type: unspecified pancreatitis type Acute pancreatitis complication: unspecified Qualified Code(s): K85.90 - Acute pancreatitis without necrosis or infection, unspecified PLAN: The patient is a 50 y/o F w/ PMHx: Morbid Obesity, GERD, Former Tobacco use, recent diagnosis of colitis at the [facility] pain clinic treated with an unclear type of antibiotic however patient did not improve and therefore at that time was sent for CT abdomen and pelvis on 06/02/2021 with noted at that time due to circumferential wall thickening of the cecum and ascending colon as well as the terminal ileum with adenopathy in the mesentery of the right lower quadrant with increased markings suggestive of sigmoid colitis who now re- presents to the [facility] ED on 06/13/21 with history of 2-week history of worsening abdominal pain, epigastric as well as bilateral upper quadrants with associated nausea and emesis with loose stools. 1. Acute pancreatitis w/ abdominal pain, N/V: Will admit to [facility], maintain on IVFs, NPO, IV PPI, IV/po pain control, trend lipase, CMP. Will obtain RUQ US, FLP, denies EtOH consumption as potentially etiology for pancreatitis. 2. Recent acute sigmoid colitis: Requesting records from [facility] clinic, patient unsure of antibiotic that she was on, CT abdomen and pelvis with findings consistent with colitis, follow-up abdominal ultrasound not marked appearing however repeat right upper quadrant gallbladder ultrasound requested as noted above. [facility], may need to consider IV zosyn initiation if worsening WBC elevation or L shift or febrile status or onset LLQ pain in addition to repeat CT. 3. Elevated BP without hypertensive diagnosis: Patient with elevated BP upon presentation, possibly pain associated, continue to closely monitor and add regimen if appropriate, as needed IV hydralazine interim 4. Anxiety and depression: We will continue patient home escitalopram and buspirone regimen 5. Recent incidental 1.8 x 1.9 cm adenoma left adrenal gland: Encourage co ntinued outpatient follow-up and monitoring. 6. Morbid Obesity: Weight loss and lifestyle changes encouraged, nutrition consulted. 7. Former tobacco use: Encourage continued tobacco cessation. 8. DVT prophylaxis: SCDs, Lovenox. Charges/Coding Visit Charges Inpatient E&M: 92120 Init Hosp L3
[2021-06-13 14:14] VITALS: BP 154/84; PULSE 86; O2SAT 99
[2021-06-13 15:13] VITALS: BMI 44.6
[2021-06-13 15:45] VITALS: BP 149/91; PULSE 102; RESP 16; TEMP 36.2; O2SAT 97
[2021-06-13] MEDS: Ondansetron 4 MG/2 ML Vial IV (15:52)
[2021-06-13] MEDS: Morphine 4 MG/ML Syringe IV (15:52)
--- NOTE | 2021-06-13 16:30 | US_ITS ---
STUDY: ABDOMINAL ULTRASOUND - RIGHT UPPER QUADRANT REASON FOR VISIT: Female, 50 years old. ABDOMEN PAIN acute pancreatitis TECHNIQUE: Ultrasound evaluation of the right upper quadrant was performed with real-time and static allen-scale imaging. TECHNICAL QUALITY: Adequate. COMPARISON: 06.09.21. FINDINGS: Liver: There is increased echogenicity consistent with fatty infiltration. The bile ducts are within normal limits. There is hepatic color flow. The direction of portal flow is hepatopetal. There is no demonstrated mass lesion. Gallbladder: Normal distended gallbladder. The gallbladder wall measures 1.1 mm. There is a negative sonographic Blunt''s sign. There is no pericholecystic fluid. There is biliary sludge dependent within the gallbladder vs small gallstones. Common Bile Duct (C.B.D.): The common bile duct measures ( in mm): 5.4 Pancreas: Normal size of the head, body of the pancreas. There is increased echogenicity of the pancreas. There is no demonstrated pancreatic mass or cyst. Right Kidney: Normal size of the right kidney. The right kidney measures 11.6 cm. . Normal renal cortex. There is no demonstrated renal mass or cyst. There is no right hydronephrosis. Aorta: It is not visualized. There is too much overlying bowel gas. . US/Gallbladder IMPRESSION: Fatty liver. There is biliary sludge dependent within the gallbladder vs small gallstones. Note: Renal size measurements and size measurements of other organs etc may vary depending on modality and chief transfer and pumphouse operator dependent variations in measurements. (i.e. Measuring a kidney on an US does not correlate with an exact same measurement on a CT.) Electronically Signed: Arie Aguilar MD at 17:46 EDT , Service support ,
[2021-06-13] MEDS: 0.9% Saline Lock 10 ML Syringe IV (16:52)
[2021-06-13] MEDS: 0.9% Normal Saline 1,000 ML 150 ML IV ×2 (17:20→21:16)
[2021-06-13 17:27] VITALS: BP 152/80; PULSE 84; RESP 16; TEMP 37.1; O2SAT 98
[2021-06-13] MEDS: Mag Hydrox/Al Hydrox/Simeth 30 ML UDC PO (17:35)
[2021-06-13] MEDS: oxyCODONE 5 MG Tablet PO ×2 (17:35→21:55)
[2021-06-13 17:42] VITALS: O2SAT 96
[2021-06-13 21:15] VITALS: BP 144/76; PULSE 94; RESP 18; TEMP 36.6; O2SAT 96
[2021-06-13] MEDS: Temazepam 15 MG Capsule PO (21:17)
[2021-06-13] MEDS: busPIRone 5 MG Tablet 10 MG PO (21:55)
[2021-06-13] MEDS: Enoxaparin 40 MG/0.4 ML Syringe SC (21:55)
--- NOTE | 2021-06-14 00:48 | PCS.PANDOC ---
PANDEMIC DOCUMENTATION INITIATED: Date: 06/13/2021 Time: 190
[2021-06-14] MEDS: 0.9% Normal Saline 1,000 ML 150 ML IV ×3 (03:21→17:32)
[2021-06-14 03:22] VITALS: BP 132/74; PULSE 88; RESP 16; TEMP 36.7; O2SAT 97
[2021-06-14] MEDS: oxyCODONE 5 MG Tablet PO ×2 (05:37→09:35)
[2021-06-14 05:52] LABS: Absolute Lymphocyte Count 1.12 X10^3/uL (0.83-4.51); Absolute Neutrophil Count 8.3 X10^3/uL (2.0-7.7); Basophil# 0.04 X10^3/uL; Basophil% 0.4 % (0-1); Eosinophil# 0.18 X10^3/uL; Eosinophils% 1.7 % (0-5); Hematocrit 37.4 % (37-47); Hemoglobin 12.1 g/dL (12.0-15.0); Lymphocyte # 1.12 X10^3/ul (0.83-4.51); Lymphocyte % 10.6 % (19-41); Mean Corp Hgb Conc 32.4 g/dL (32-36); Mean Corpuscular Hgb 27.9 pg (27.0-32.0); Mean Corpuscular Volume 86.2 fL (81-99); Mean Platelet Vol. 9.4 fl (6.2-12.0); Monocyte# 0.93 X10^3/uL; Monocyte% 8.8 % (0-10); NRBC Flagged by Analyzer 0 % (0-5); Neutrophil # 8.26 X10^3/uL (2.7-7.7); Platelet Count 210 K/mm3 (150-450); RBC Distribution Width CV 12.7 % (11.6-14.6); RBC Distribution Width SD 39.9 fl (35.1-43.9); Red Blood Count 4.34 M/mm3 (4.2-5.4); White Blood Count 10.6 K/mm3 (4.4-11.0)
[2021-06-14 06:16] LABS: ALB/GLOB Ratio 0.6 RATIO (0.9-2.4); AST(SGOT) 9 U/L (15-37); Alanine Aminotransfer ALT/SGPT 15 U/L (13-56); Albumin, Serum 2.5 g/dL (3.2-5.0); Alkaline Phosphatase 52 U/L (45-117); Anion Gap 5 (5-15); BUN 8 mg/dL (7-18); BUN/Creat Ratio 11.2 RATIO (10-20); Calcium,Total 7.9 mg/dL (8.5-10.1); Chloride 105 mmol/L (98-107); Cholesterol 156 mg/dL (200); Creatinine, Serum 0.71 mg/dL (0.55-1.02); EST Glomerular Filtration Rate 92 mL/min (>60); Est Glom Filt Rate - Afr Amer 111 mL/min (>60); Estimated Creatinine Clearance 81.86 ml/min; Globulin 4.1 g/dL (2.2-4.2); Glucose 98 mg/dL (74-106); High Density Lipoprotein 42 mg/dL; Lipase 987 U/L (73-393); Potassium 4.2 mmol/L (3.5-5.1); Protein, Total 6.6 g/dL (6.4-8.2); Sodium Level 137 mmol/L (136-145); Triglycerides 114 mg/dL; Very Low Density Lipoprotein 23 mg/dL (5-40)
[2021-06-14 07:00] VITALS: O2SAT 95
[2021-06-14] MEDS: Enoxaparin 40 MG/0.4 ML Syringe SC (09:30)
[2021-06-14] MEDS: busPIRone 5 MG Tablet 10 MG PO ×2 (09:31→20:14)
[2021-06-14] MEDS: Escitalopram Oxalate 20 MG Tablet PO (09:31)
[2021-06-14 09:52] VITALS: BP 138/70; PULSE 91; RESP 16; TEMP 36.8; O2SAT 97
--- NOTE | 2021-06-14 10:39 | PCM.PN.HOSP ---
Subjective Subjective Patient seen and examined. She still complained of abdominal pain but had no other complaints. REview of systems was otherwise negative. She has remained hemodynamically stable. Objective Data Objective Data Vital Signs: Vital Signs Temp Pulse Resp BP Pulse Ox 98.2 F 91 16 138/70 H 97 06/14/21 09:52 06/14/21 09:52 06/14/21 09:52 06/14/21 09:52 06/14/21 09:52 Oxygen Delivery Method Room Air Weight: 260 lb 2.327 oz Body Mass Index (BMI) 44.6 Intake & Output: Intake and Output for Last 24 Hours 06/12/21 06/13/21 06/14/21 23:59 23:59 23:59 Intake Total 2837 / 2837 1022.5 / 1022.5 Balance 2837 / 2837 1022.5 / 1022.5 Lab / Micro Data Result Diagrams: 06/14/21 05:42 06/14/21 05:42 Labs: Laboratory Results - last 24 hr 06/13/21 11:35: WBC 13.7 H, RBC 5.02, Hgb 14.1, Hct 42.1, MCV 83.9, MCH 28.1, MCHC 33.5, RDW Std Deviation 39.0, RDW Coeff of Mohsen 12.8, Plt Count 270, MPV 9.3, Immature Gran % (Auto) 0.500, Neut % (Auto) 79.7 H, Lymph % (Auto) 10.0 L, [place] % (Auto) 8.4, Eos % (Auto) 1.1, Baso % (Auto) 0.3, Absolute Neuts (auto) 10.9 H, Absolute Lymphs (auto) 1.37, Nucleated RBC % 0 06/13/21 11:35: Sodium 137, Potassium 4.0, Chloride 102, Carbon Dioxide 28.0, Anion Gap 7, BUN 9, Creatinine 0.72, Estim Creat Clear Calc 80.72, Est GFR (MDRD) Af Amer 110, Est GFR (MDRD) Non-Af 91, BUN/Creatinine Ratio 12.5, Glucose 124 H, Calcium 9.2, Total Bilirubin 0.40, AST 10 L, ALT 18, Alkaline Phosphatase 60, Total Protein 7.7, Albumin 3.2, Globulin 4.5 H, Albumin/Globulin Ratio 0.7 L 06/13/21 11:35: Lipase 1186 H 06/14/21 05:42: WBC 10.6, RBC 4.34, Hgb 12.1, Hct 37.4, MCV 86.2, MCH 27.9, MCHC 32.4, RDW Std Deviation 39.9, RDW Coeff of Mohsen 12.7, Plt Count 210, MPV 9.4, Immature Gran % (Auto) 0.500, Neut % (Auto) 78.0 H, Lymph % (Auto) 10.6 L, [place] % (Auto) 8.8, Eos % (Auto) 1.7, Baso % (Auto) 0.4, Absolute Neuts (auto) 8.3 H, Absolute Lymphs (auto) 1.12, Nucleated RBC % 0 06/14/21 05:42: Sodium 137, Potassium 4.2, Chloride 105, Carbon Dioxide 27.0, Anion Gap 5, BUN 8, Creatinine 0.71, Estim Creat Clear Calc 81.86, Est GFR (MDRD) Af Amer 111, Est GFR (MDRD) Non-Af 92, BUN/Creatinine Ratio 11.2, Glucose 98, Calcium 7.9 L, Total Bilirubin 0.40, AST 9 L, ALT 15, Alkaline Phosphatase 52, Total Protein 6.6, Albumin 2.5 L, Globulin 4.1, Albumin/Globulin Ratio 0.6 L, Triglycerides 114, Cholesterol 156, LDL Cholesterol 91, VLDL Cholesterol 23, HDL Cholesterol 42, Lipase 987 H Radiography Diagnostic Testing: Radiology Impression Chest X-Ray 06/13/21 11:35 IMPRESSION: No radiographic evidence of acute cardiopulmonary disease. at 1201 Reported and signed by: Giovany Coffman MD Electronically Signed: Giovany Coffman MD at 11:59 EDT Tel , Service support , Gallbladder Ultrasound 06/13/21 16:30 IMPRESSION: Fatty liver. There is biliary sludge dependent within the gallbladder vs small gallstones. 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 (i.e. Measuring a kidney on an US does not correlate with an exact same measurement on a CT.) Electronically Signed: Arie Aguilra MD at 17:46 EDT , Service support , Physical Exam Const alert, oriented x3 and no apparent distress Exam Limitations: no limitations Nutritional Appearance: morbidly obese HEENT head/scalp atraumatic and moist oral mucous membranes Head and Scalp: normocephalic Eyes PERRL, EOMs intact bilaterally and conjunctivae normal Neck no lymphadenopathy Resp normal respiratory effort, no retractions, no use of accessory muscles and clear to auscultation bilaterally Cardio regular rate, regular rhythm, S1 normal heart sound, S2 normal heart sound and no murmurs GI normal to inspection, nondistended, normoactive bowel sounds, soft to palpation, non-tender and non-distended GI Narrative: sinclair's sign negative. Extremity normal to inspection, full ROM and no clubbing, cyanosis or edema Peripheral Pulses: Yes pulses 2+ throughout Neuro oriented x3 and CN's II-XII intact bilaterally Sensorium / Orientation: awake and alert Psych affect normal Assessment & Plan Assessment/Plan (1) Acute pancreatitis: QUALIFIERS: Pancreatitis type: unspecified pancreatitis type Acute pancreatitis complication: unspecified Qualified Code(s): K85.90 - Acute pancreatitis without necrosis or infection, unspecified PLAN: #Acute pancreatitis still complains of abdominal pain, though she says it is controlled by pain meds lipase is trending downwards continue keeping NPO; continue current pain meds continue gentle hydration with IVF gallbladder USG:biliary sludge depentent within gallbladder vs small stones #Recent acute sigmoid diverticulitis records from her PCP pending CT abdomen from 06/02/2021 showed findings consistent with colitis. stable now. Will monitor #Anxiety and depression: on excitalopram and buspirone #left adrenal gland adenoma; incidental finding per imaging. To follow up with PCp on outpatient basis #Elevated BP: improving. IV hydralazine prin. If it remains elevated, to start oral; BP meds DVT prophylaxis; lovenox Charges/Coding Visit Charges Inpatient E&M: 39672 Subs Hosp L2
--- NOTE | 2021-06-14 11:00 | CASEMGMT ---
RN CM Assessment Introduced role of RN CM to patient. Patient is alert, oriented and able to participate in RN CM Assessment. Care providers, pharmacy, and demographics verified. Admit Dx: Acute Pancreatitis Re-Admit: No Barriers/Issues: None PCP: Evon Byrd Specialists: None Preferred Pharmacy: [facility] if open upon DC, otherwise [facility] Insurance: MMO Rx Benefit: Yes LNOK: Mother Jia James LW/HPOA: None. Declines completion on this admission. Provided AD information with administrator social welfare rack card and made aware can return as an outpatient to complete with administrator social welfare department at a later time. Living Arrangements: Lives with her mother and 13yo son in a 2SH. Bedroom on 2nd level with approx 15 steps. 5 steps to enter home. ADL?s: Independent with ambulation and ADLs Transportation: Patient drives. Mother Jia will transport upon DC. DME: None HHC: None SNF: None Goal: Home and does not think will have any needs, issues, or concerns with going home. Aware RNCM will continue to follow should any needs arise. DC PLAN: Home with no anticipated needs identified att this time. Denies ETOH/Drug use. States quit smoking 2yrs ago. PCP list provided per request. CAMILO Reddy
--- NOTE | 2021-06-14 11:04 | PCM.CONS.GEN ---
Assessment & Plan Assessment/Plan (1) Acute pancreatitis: QUALIFIERS: Acute pancreatitis complication: unspecified Pancreatitis type: unspecified pancreatitis type Qualified Code(s): K85.90 - Acute pancreatitis without necrosis or infection, unspecified (2) Gallbladder sludge: PLAN: Did review patient's previous (06/02/21) CT abdomen pelvis did show thickening at the cecum and ascending colon. At that time patient did have slight elevation of AST and ALT but normal lipase. This time patient AST and ALT are normal and her lipase is elevated but it is coming down currently. Discussed with patient that to major causes of pancreatitis are alcohol and gallstones. Patient does not drink and there is some evidence of sludge in the gallbladder. Patient's triglycerides were also checked which were within normal limits. Also discussed with patient would plan for her to go home on Protonix 40 mg p.o. daily as the famotidine has not been controlling her symptoms. As long as patient's lipase continues to trend down we will plan to do laparoscopic cholecystectomy tomorrow. We will hold anticoagulation. Reviewed the anatomy with the patient and discussed the procedure: laparoscopic cholecystectomy with possible cholangiograms, possible open. Review risks including but not limited to bleeding, infection, hernia, bile leak, retained gallstones requiring another procedure ERCP- Endoscopic Retrograde Cholangiopancreatography, injury to another organ (bile ducts, common bile duct, small bowel, etc.) may require transfer to a tertiary care facility and conversion to an open procedure. Discussed with patient she may still have some epigastric discomfort due to the pancreatitis after the surgery. All questions were answered. Blanca Mcguire M.D. Pager: [phone] [facility] [address] [place] [address], [address] [place] [address] Office: [phone] HPI Consult Data Date of Consult: 06/15/21 HPI Narrative HPI Narrative: YENY CERON, is a 50 F who presents to the ER due to abdominal pain. Patient's white blood count on admission was 13 currently 10.6. Patient's lipase was elevated at 1100's currently trending down in the 900s.. Patient recently was diagnosed with colitis in mid May. Patient's ultrasound the gallbladder shows a normal gallbladder wall, questionable dependent sludge common bile duct is 5 mm no pericholecystic fluid. Patient states she has had epigastric/supraumbilical abdominal pain since her previous visit and has not really gotten much better even with antibiotics. Patient states over the weekend it got worse became a 10 out of 10. Currently patient with the IV Protonix as well as pain meds states it is 5 out of 10. Patient did have nausea and vomiting prior to coming in. Patient has not gotten any IV antibiotics here white blood cell count went from 13-10. [facility] Medical History Anxiety and depression Former tobacco use GERD (gastroesophageal reflux disease) Morbid obesity Home Medications buspirone 10 mg PO BID 06/13/21 [History Last Taken 06/11/21] escitalopram oxalate 20 mg PO DAILY 06/13/21 [History Last Taken 06/11/21] famotidine 20 mg PO BID 06/13/21 [History Last Taken 06/11/21] hyoscyamine sulfate 0.375 mg PO Q8H PRN 06/13/21 [History Last Taken 06/13/21] Allergy/AdvReac Type Severity Reaction Status Date / Time No Known Allergies Allergy Verified 06/03/19 23:57 Family History Father Diabetes Mother Hypertension Brother Hypertension Surgical History S/P section S/P rotator cuff repair Social History (Updated 06/13/21 @ 19:[address] Lizeth Ceron MD) household members: family Smoking Status: Former smoker how long ago did patient quit smoking: Quit 2 years prior, smoked 1/2 ppd since she was a teenager until quitting. alcohol intake: never substance use type: does not use ROS ROS Narrative CONSTITUTIONAL: No fever, chills, + fatigue. HEENT: Eyes: No visual loss, Ears, Nose, Throat: No sore throat. SKIN: No rash CARDIOVASCULAR: No chest pain RESPIRATORY: No shortness of breath, cough GASTROINTESTINAL: + anorexia, nausea, vomiting, diarrhea, abdominal pain-epigastric/supraumb, No melena, GENITOURINARY: No dysuria NEUROLOGICAL: No headache MUSCULOSKELETAL: + muscle, back pain HEMATOLOGIC: No bleeding or bruising. LYMPHATICS: No enlarged nodes. PSYCHIATRIC: + history of depression or anxiety. ENDOCRINOLOGIC: No reports of cold intolerance. ALLERGIES: No history of asthma Physical Exam Const alert, oriented x3 and no apparent distress HEENT normocephalic and head/scalp atraumatic Resp normal respiratory effort Cardio regular rate GI soft to palpation; Negative for non-distended Palpation: tender epigastric, LUQ, RUQ, Blunt's sign and other (Mostly in the epigastric and left upper quadrant.); Negative for guarding Extremity no clubbing, cyanosis or edema Neuro CN's II-XII intact bilaterally Psych mental status grossly normal Lab / Micro Data Result Diagrams: 06/14/21 05:42 06/14/21 05:42 Labs: Laboratory Results - last 24 hr 06/13/21 11:35: WBC 13.7 H, RBC 5.02, Hgb 14.1, Hct 42.1, MCV 83.9, MCH 28.1, MCHC 33.5, RDW Std Deviation 39.0, RDW Coeff of Mohsen 12.8, Plt Count 270, MPV 9.3, Immature Gran % (Auto) 0.500, Neut % (Auto) 79.7 H, Lymph % (Auto) 10.0 L, [place] % (Auto) 8.4, Eos % (Auto) 1.1, Baso % (Auto) 0.3, Absolute Neuts (auto) 10.9 H, Absolute Lymphs (auto) 1.37, Nucleated RBC % 0 06/13/21 11:35: Sodium 137, Potassium 4.0, Chloride 102, Carbon Dioxide 28.0, Anion Gap 7, BUN 9, Creatinine 0.72, Estim Creat Clear Calc 80.72, Est GFR (MDRD) Af Amer 110, Est GFR (MDRD) Non-Af 91, BUN/Creatinine Ratio 12.5, Glucose 124 H, Calcium 9.2, Total Bilirubin 0.40, AST 10 L, ALT 18, Alkaline Phosphatase 60, Total Protein 7.7, Albumin 3.2, Globulin 4.5 H, Albumin/Globulin Ratio 0.7 L 06/13/21 11:35: Lipase 1186 H 06/14/21 05:42: WBC 10.6, RBC 4.34, Hgb 12.1, Hct 37.4, MCV 86.2, MCH 27.9, MCHC 32.4, RDW Std Deviation 39.9, RDW Coeff of Mohsen 12.7, Plt Count 210, MPV 9.4, Immature Gran % (Auto) 0.500, Neut % (Auto) 78.0 H, Lymph % (Auto) 10.6 L, [place] % (Auto) 8.8, Eos % (Auto) 1.7, Baso % (Auto) 0.4, Absolute Neuts (auto) 8.3 H, Absolute Lymphs (auto) 1.12, Nucleated RBC % 0 06/14/21 05:42: Sodium 137, Potassium 4.2, Chloride 105, Carbon Dioxide 27.0, Anion Gap 5, BUN 8, Creatinine 0.71, Estim Creat Clear Calc 81.86, Est GFR (MDRD) Af Amer 111, Est GFR (MDRD) Non-Af 92, BUN/Creatinine Ratio 11.2, Glucose 98, Calcium 7.9 L, Total Bilirubin 0.40, AST 9 L, ALT 15, Alkaline Phosphatase 52, Total Protein 6.6, Albumin 2.5 L, Globulin 4.1, Albumin/Globulin Ratio 0.6 L, Triglycerides 114, Cholesterol 156, LDL Cholesterol 91, VLDL Cholesterol 23, HDL Cholesterol 42, Lipase 987 H Radiology Impression Chest X-Ray 06/13/21 11:35 IMPRESSION: No radiographic evidence of acute cardiopulmonary disease. at 1201 Reported and signed by: Giovany Coffman MD Electronically Signed: Giovany Coffman MD at 11:59 EDT Tel , Service support , Gallbladder Ultrasound 06/13/21 16:30 IMPRESSION: Fatty liver. There is biliary sludge dependent within the gallbladder vs small gallstones. 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 (i.e. Measuring a kidney on an US does not correlate with an exact same measurement on a CT.) Electronically Signed: Arie Aguilar MD at 17:46 EDT , Service support , Procedure Criteria Type of Procedure Procedure Type: Elective Elective Risks - COVID COVID Risk Discussion: The surgeon/proceduralist and patient have discussed in detail the risk of exposure to and/or potential harm posed by the COVID-19 virus with having a surgery/procedure at this time versus the risk of delaying the surgery/procedure. It is not possible to know either the risk of delaying the surgery or procedure or chance of getting an infection with perfect accuracy, but a joint decision was made between the patient and the surgeon/proceduralist to proceed at this time with the scheduled surgery/procedure as indicated on the consent form. Charges/Coding Visit Charges Inpatient E&M: 45024 Init Hosp L3
[2021-06-14] MEDS: HYDROmorphone 0.5 MG/0.5 ML SYRINGE IV ×3 (13:10→20:29)
[2021-06-14 14:07] VITALS: BP 133/73; PULSE 87; RESP 16; TEMP 37; O2SAT 96
[2021-06-14] MEDS: BENZOCAINE/MENTHOL 1 LOZENGE MUCOUS MEM (18:01)
[2021-06-14 20:10] VITALS: BP 136/79; PULSE 90; RESP 18; TEMP 37.4; O2SAT 95
[2021-06-14] MEDS: 0.9% Saline Lock 10 ML Syringe IV (20:32)
[2021-06-15] VITALS (13 sets, daily range): BP systolic 113–155; BP diastolic 46–85; PULSE 74–99; RESP 16–18; TEMP 36.2–37; O2SAT 87–97; BMI 44.6
--- NOTE | 2021-06-15 | GALL_PTH ---
PATIENT: YENY CERON LOC: MS2 U#:[id number] AGE/SX: 50/F ROOM: [place] RE06/13/[address]: Dr. Liliana Whaley MD : 1970 BED: 1 DIS: 06/16/2021 SPEC #: [id number] RECD: 06/15/21 13:41 STATUS: [place] REQ #: [id number] RISHABH: 06/15/21 00:[address]: Blanca Mcguire DEPT: SURGICAL PATHOLOGY RECD BY: Serge Womack ENTERED: 06/16/21 08:55 SP TYPE: GALLBLADDE OTHR DR: MD Dr. Liliana Steven MD Dr. Tamera Robotham, MD [facility] Tissues: Gallbladder, NOS Procedures: Surgery Specimen Level III Comments: @ Ordering doctor for SUIII edited from to @ by SWAPNIL at 06/16/21 1501 @ Submitting doctor edited from to @ by RGOOD at 06/16/21 1501 HEADER OPERATION: Laparoscopic cholecystectomy with IOC PRE-OP DIAGNOSIS: Acute pancreatitis, gallbladder sludge TISSUE SUBMITTED: Gallbladder MICROSCOPIC DIAGNOSIS Gallbladder, cholecystectomy: Chronic cholecystitis. AM:twan 06/17/2021 MICROSCOPIC DESCRIPTION Slides are reviewed. GROSS DESCRIPTION Received is one container labeled with the patient's name and designated gallbladder. The specimen consists of a gallbladder measuring 8.5 cm in length and up to 3.5 cm in diameter. The external surface is pink-lees, smooth and glistening for the most part. Focally it is granular, hemorrhagic and contains cautery artifact. The gallbladder contains green-yellow mucoid bile. No stones are identified in the container or in the gallbladder. The mucosa is bile-stained and without any mass lesions. The gallbladder wall measures up to 0.2 cm in thickness. Nuclear Radiologist sections from the gallbladder and the cystic duct are submitted in one cassette. / SJ:twan 06/16/21 TC:3 CPT: 25253
[2021-06-15] MEDS: 0.9% Normal Saline 1,000 ML 150 ML IV ×2 (00:16→06:17)
[2021-06-15] MEDS: HYDROmorphone 0.5 MG/0.5 ML SYRINGE IV ×3 (00:53→09:13)
[2021-06-15] MEDS: 0.9% Saline Lock 10 ML Syringe IV (00:57)
--- NOTE | 2021-06-15 04:35 | EKG12_ITS ---
Test Reason : AM EKG Blood Pressure : / mmHG Vent. Rate : 093 BPM Atrial Rate : 093 BPM P-R Int : 172 ms QRS Dur : 080 ms QT Int : 348 ms P-R-T Axes : 046 023 027 degrees QTc Int : 432 ms Normal sinus rhythm Normal ECG When compared with ECG of 04-MAR-2013 19:22, No significant change was found Confirmed by LEIGHA TRENT, IAN ([id number]), publications editor JONNY LAN ([id number]) on 06/21/2021 10:20:27 AM Referred By: OSMANY Confirmed By:IAN AHUJA MD
--- NOTE | 2021-06-15 07:25 | PN.HOSP_ITS ---
Subjective Subjective Patient seen and examined. Pain is better controlled today. She has no other complaints and review of systems is otherwise negative. General surgery is on board and she is for lap cholecystectomy today. She has remained hemodynamically stable. Objective Data Objective Data Vital Signs: Vital Signs Temp Pulse Resp BP Pulse Ox 98.2 F 99 18 148/85 H 97 06/15/21 06:05 06/15/21 06:05 06/15/21 06:05 06/15/21 06:05 06/15/21 06:05 Oxygen Delivery Method Room Air Weight: 260 lb 2.327 oz Body Mass Index (BMI) 44.6 Intake & Output: Intake and Output for Last 24 Hours 06/13/21 06/14/21 06/15/21 23:59 23:59 23:59 Intake Total 2837 / 2837 3132.5 / 3132.5 1902.5 / 1902.5 Balance 2837 / 2837 3132.5 / 3132.5 1902.5 / 1902.5 Lab / Micro Data Result Diagrams: 06/14/21 05:42 06/14/21 05:42 Micro: Microbiology 06/14/21 13:10 Nasal Secretion SARS-CoV-2 Antigen (Rapid) - Final Physical Exam Const alert, oriented x3 and no apparent distress Exam Limitations: no limitations Nutritional Appearance: morbidly obese HEENT head/scalp atraumatic and moist oral mucous membranes Head and Scalp: normocephalic Eyes PERRL, EOMs intact bilaterally and conjunctivae normal Neck no lymphadenopathy Resp normal respiratory effort, no retractions, no use of accessory muscles and clear to auscultation bilaterally Cardio regular rate, regular rhythm, S1 normal heart sound, S2 normal heart sound and no murmurs GI normal to inspection, nondistended, normoactive bowel sounds, soft to palpation, non-tender and non-distended GI Narrative: sinclair's sign negative. Extremity normal to inspection, full ROM and no clubbing, cyanosis or edema Peripheral Pulses: Yes pulses 2+ throughout Neuro oriented x3 and CN's II-XII intact bilaterally Sensorium / Orientation: awake and alert Psych affect normal Assessment & Plan Assessment/Plan (1) Acute pancreatitis: QUALIFIERS: Pancreatitis type: unspecified pancreatitis type Acute pancreatitis complication: unspecified Qualified Code(s): K85.90 - Acute pancreatitis without necrosis or infection, unspecified PLAN: #Acute pancreatitis * abdominal pain improving * currently NPO * general surgery on board. * gallbladder USG:biliary sludge dependent within gallbladder vs small stones * for lap cholecystectomy today. * #Recent acute sigmoid diverticulitis * records from her PCP pending * CT abdomen from 06/02/2021 showed findings consistent with colitis. * stable now. Will monitor #Anxiety and depression: on excitalopram and buspirone #left adrenal gland adenoma; incidental finding per imaging. To follow up with PCp on outpatient basis #Elevated BP: improving. IV hydralazine prin. If it remains elevated, to start oral; BP meds DVT prophylaxis; lovenox Charges/Coding Visit Charges Inpatient E&M: 83345 Subs Hosp L2
[2021-06-15 09:28] LABS: ALB/GLOB Ratio 0.6 RATIO (0.9-2.4); AST(SGOT) 13 U/L (15-37); Alanine Aminotransfer ALT/SGPT 15 U/L (13-56); Albumin, Serum 2.5 g/dL (3.2-5.0); Alkaline Phosphatase 49 U/L (45-117); Anion Gap 10 (5-15); BUN 5 mg/dL (7-18); BUN/Creat Ratio 9.8 RATIO (10-20); Calcium,Total 8.3 mg/dL (8.5-10.1); Chloride 105 mmol/L (98-107); Creatinine, Serum 0.51 mg/dL (0.55-1.02); EST Glomerular Filtration Rate 136 mL/min (>60); Est Glom Filt Rate - Afr Amer 164 mL/min (>60); Estimated Creatinine Clearance 113.96 ml/min; Globulin 4.1 g/dL (2.2-4.2); Glucose 73 mg/dL (74-106); Potassium 4.1 mmol/L (3.5-5.1); Protein, Total 6.6 g/dL (6.4-8.2); Sodium Level 137 mmol/L (136-145)
[2021-06-15 09:35] LABS: Lipase 618 U/L (73-393)
--- NOTE | 2021-06-15 11:30 | RAD_ITS ---
INDICATION: PAIN EXAMINATION/TECHNIQUE: Limited spot intraoperative films are presented for evaluation. Total Fluoroscopic Time: 4.8 seconds. Number of Fluoroscopic Images: 2 Radiation dosage : 2.99 mGy COMPARISON: 06/13/2021. FINDINGS: Spot fluoroscopic images obtained demonstrate contrast injection into the cystic duct, unremarkable opacification of the cystic duct is visualized, unremarkable opacification of the internal and extrahepatic ducts except for mild the narrowing visualized in the central bile duct, no evidence of filling defect is visualized, mobile lucencies within the common bile duct suggestive of injected air bubbles. There is no biliary ductal dilatation. There is free passage into the duodenum. No evidence of contrast extravasation outside the biliary tree to suggest bile duct injury. RAD/Cholangiogram/ O R,Initial IMPRESSION: Unremarkable intraoperative cholangiogram. Electronically Signed: Juno Tracy MD at 13:22 EDT Tel , Service support ,
[2021-06-15] MEDS: Lactated Ringers 1,000 ML 100 ML IV ×2 (12:45→18:07)
[2021-06-15] MEDS: Bupivacaine Mpf 0.5% 30 ML VIAL (13:00)
--- NOTE | 2021-06-15 13:06 | PCM.OPRPT ---
Report of Operation Date of Procedure: 06/15/21 Pre-Operative Diagnosis: Acute pancreatitis, gallbladder sludge Post-Operative Diagnosis: Same Surgery/Procedure Performed:: Laparoscopic cholecystectomy with cholangiograms Surgeon: Blanca Mcguire knife finisher: Allison Maddox Type of Anesthesia: General/Supplemental Anesthesiologist: Kev Dudley Special Medications: Cefotetan 2 g IV x1 Estimated Blood Loss (mL): < 10 cc Description of Procedure: Indications this is a 50 year-old female who developed abdominal pain/nausea/vomiting and on workup was found to have acute pancreatitis, gallbladder sludge, with a normal common bile duct. Laparoscopic cholecystectomy was elected. Description procedure: The patient was placed on operating table in supine position. General Anesthesia was induced. A timeout was completed verifying correct patient, procedure, site, position and special equipment prior to beginning procedure. The abdomen was prepped and draped in usual sterile fashion. An incision was made in the natural skin line above the umbilicus. The fascia was elevated and incised. The peritoneum was elevated and incised. Entry into the peritoneum was confirmed visually and no bowel was noted in the vicinity of the incision. Freeman trocar was placed. The abdomen was insufflated with carbon dioxide to a pressure of 12-15 mmHg. Patient tolerated insufflation well. The laparoscope was then inserted and abdomen inspected. No injuries from initial trocar placement were noted. Additional trochars were then inserted in the following locations 5 mm trocar in the epigastrium and 2 more 5 mm trochars along the right costal margin. The abdomen was inspected no abnormalities were found. The table is placed in reverse Trendelenburg position with the right side up. The adhesions between the gallbladder and omentum were lysed sharply. The dome of the gallbladder was grasped with atraumatic grasper passed through the lateral port and retracted over the dome of the liver. Infundibulum was then grasped with atraumatic grasper through the midclavicular port and retracted to the right lower quadrant. This maneuver exposed Calot's triangle. The peritoneum overlying the gallbladder infundibulum was then incised and cystic duct and artery identified and circumferentially dissected. Wei catheter was used for cholangiograms. The cholangiogram showed good filling of the common bile duct into the duodenum with no filling defects, good filling of the right and left bile ducts as well. The cystic duct and artery were then doubly clipped and divided close to the gallbladder. The gallbladder then dissected from its peritoneal attachments by electrocautery. Hemostasis was checked and the gallbladder and contained stones were removed using the endoscopic retrieval bag through the umbilical port. The gallbladder is passed off table as specimen. The gallbladder fossa was copiously irrigated with saline and hemostasis obtained. There is no evidence of bleeding from the gallbladder fossa or cystic artery leakage of bile from the cystic duct stump. Secondary trochars removed under direct vision. No bleeding was noted the trocar sites. The laparoscope was withdrawn and umbilical trocar removed. The abdomen was allowed to collapse. The fascia of the 12 mm trocar was closed with a [id number] 0 Vicryl suture. The skin was closed with sutures of 4-0 Monocryl and Steri-Strips. The orogastric tube was removed and the patient was extubated. The patient tolerated procedure well and was taken to the postanesthesia care unit in stable condition. Complications none
[2021-06-15] MEDS: oxyCODONE 5 MG Tablet PO ×2 (18:08→23:30)
[2021-06-15] MEDS: busPIRone 5 MG Tablet 10 MG PO (20:25)
[2021-06-16 03:08] VITALS: BP 107/47; PULSE 67; RESP 18; TEMP 36.6; O2SAT 95
[2021-06-16] MEDS: Lactated Ringers 1,000 ML 100 ML IV (03:19)
[2021-06-16] MEDS: oxyCODONE 5 MG Tablet PO ×2 (03:21→11:05)
[2021-06-16 05:37] LABS: Absolute Lymphocyte Count 0.61 X10^3/uL (0.83-4.51); Absolute Neutrophil Count 7.2 X10^3/uL (2.0-7.7); Basophil# 0.01 X10^3/uL; Basophil% 0.1 % (0-1); Hematocrit 34.1 % (37-47); Hemoglobin 11.3 g/dL (12.0-15.0); Lymphocyte # 0.61 X10^3/ul (0.83-4.51); Lymphocyte % 7.2 % (19-41); Mean Corp Hgb Conc 33.1 g/dL (32-36); Mean Corpuscular Hgb 27.8 pg (27.0-32.0); Mean Corpuscular Volume 83.8 fL (81-99); Mean Platelet Vol. 9.7 fl (6.2-12.0); Monocyte# 0.59 X10^3/uL; NRBC Flagged by Analyzer 0 % (0-5); Neutrophil # 7.18 X10^3/uL (2.7-7.7); Neutrophil % 85.2 % (47-70); Platelet Count 224 K/mm3 (150-450); RBC Distribution Width CV 12.4 % (11.6-14.6); RBC Distribution Width SD 37.7 fl (35.1-43.9); Red Blood Count 4.07 M/mm3 (4.2-5.4); White Blood Count 8.4 K/mm3 (4.4-11.0)
[2021-06-16 06:45] VITALS: BP 127/75; PULSE 68; RESP 16; TEMP 36.6; O2SAT 96
--- NOTE | 2021-06-16 08:26 | PCM.PN.SRG ---
Subjective Subjective pt states previous abd pain resolved only some incisional pain--susan clears Objective Data Objective Data Vital Signs: Vital Signs Temp Pulse Resp BP Pulse Ox 97.9 F 68 16 127/75 H 96 06/16/21 06:45 06/16/21 06:45 06/16/21 06:45 06/16/21 06:45 06/16/21 06:45 Oxygen Flow Rate (L/min) 2 Oxygen Delivery Method Room Air Weight: 264 lb 8.875 oz Body Mass Index (BMI) 44.6 Intake & Output: Intake and Output for Last 24 Hours 06/14/21 06/15/21 06/16/21 23:59 23:59 23:59 Intake Total 3132.5 / 3132.5 4959.17 / 4959.17 1040 / 1040 Balance 3132.5 / 3132.5 4959.17 / 4959.17 1040 / 1040 Lab / Micro Data Result Diagrams: 06/16/21 05:23 06/15/21 09:00 Labs: Laboratory Results - last 24 hr 06/15/21 09:00: Sodium 137, Potassium 4.1, Chloride 105, Carbon Dioxide 22.0, Anion Gap 10, BUN 5 L, Creatinine 0.51 L, Estim Creat Clear Calc 113.96, Est GFR (MDRD) Af Amer 164, Est GFR (MDRD) Non-Af 136, BUN/Creatinine Ratio 9.8 L, Glucose 73 L, Calcium 8.3 L, Total Bilirubin 0.40, AST 13 L, ALT 15, Alkaline Phosphatase 49, Total Protein 6.6, Albumin 2.5 L, Globulin 4.1, Albumin/Globulin Ratio 0.6 L 06/15/21 09:00: Lipase 618 H 06/16/21 05:23: WBC 8.4, RBC 4.07 L, Hgb 11.3 L, Hct 34.1 L, MCV 83.8, MCH 27.8, MCHC 33.1, RDW Std Deviation 37.7, RDW Coeff of Mohsen 12.4, Plt Count 224, MPV 9.7, Immature Gran % (Auto) 0.500, Neut % (Auto) 85.2 H, Lymph % (Auto) 7.2 L, [place] % (Auto) 7.0, Eos % (Auto) 0.0, Baso % (Auto) 0.1, Absolute Neuts (auto) 7.2, Absolute Lymphs (auto) 0.61 L, Nucleated RBC % 0 Micro: Microbiology 06/14/21 13:10 Nasal Secretion SARS-CoV-2 Antigen (Rapid) - Final Radiography Diagnostic Testing: Radiology Impression Cholangiogram 06/15/21 11:30 IMPRESSION: Unremarkable intraoperative cholangiogram. Electronically Signed: Juno Tracy MD at 13:22 EDT Tel , Service support , Assessment & Plan Assessment/Plan (1) S/P laparoscopic cholecystectomy: (2) Acute pancreatitis: QUALIFIERS: Pancreatitis type: unspecified pancreatitis type Acute pancreatitis complication: unspecified Qualified Code(s): K85.90 - Acute pancreatitis without necrosis or infection, unspecified (3) GERD (gastroesophageal reflux disease): PLAN: Pt is doing well, will advance diet to reg, if susan ok to d/c home. will send home with protonix for GERD, ok to return to work w no restrictions SundayJun 20 f/u in office in 2 weeks
--- NOTE | 2021-06-16 08:29 | DCINST_ITS ---
Discharge Instructions Diet Discharge Diet: Light diet - advance as tolerated Activity Discharge Activity: May Not Drive (while taking narcotic pain medications.) May shower in (days): 1 Lifting Restrictions: no lifting >20 lbs x 2 wks, no strenuous exercise for 4 wks Dressing / Incision Call your doctor if your incision/area has: Continuous Slow Oozing, Sudden Increased Bleeding, Increased Pain/ Swelling, Increased Redness, Foul Smelling Discharge and Swelling at the incision site Call your doctor if you observe: Fever of 101 or Higher Remove Dressing in: 2 days Cleanse incision/area with: Soap & Water Additional Dressing/Incision Instructions:: Steri-Strips will fall off in 7 to 10 days, if they do not fall off okay to remove after 10 days. Follow Up Care Please Follow Up With: Blanca Mcguire MD When: Call the office for a follow-up appointment 2 weeks; after 5 PM and on the weekends call [phone] with any concerns. Test Results: Test results from this visit will be discussed in further detail at your follow-up appointment, if applicable. Discharge Plan Admission Admit Date/Time: 06/13/21 14:35 Attending Provider: Liliana Whaley Primary Care Provider: [facility] Evon Dukes Consulting Providers: Blanca Mcguire Discharge Orders/Prescriptions Prescriptions: New pantoprazole 40 mg tablet,delayed release (DR/EC) 40 mg PO DAILY Qty: 30 RF: 3 oxycodone-acetaminophen [Percocet] 5-325 mg tablet 1 - 2 tab PO Q6H PRN (Reason: pain) 3 Days Qty: 15 RF: 0 Discontinued famotidine 20 mg tablet 20 mg PO BID RF: 0 No Action hyoscyamine sulfate 0.375 mg tablet extended release 12 hr 0.375 mg PO Q8H PRN (Reason: Spasms) RF: 0 buspirone 10 mg tablet 10 mg PO BID RF: 0 escitalopram oxalate 20 mg tablet 20 mg PO DAILY RF: 0 [facility] - Disposition Disposition (needs filled in before D/C Order can be placed): Home, Self Care
[2021-06-16 09:16] VITALS: BP 134/79; PULSE 75; RESP 18; TEMP 36.8; O2SAT 97
[2021-06-16] MEDS: Enoxaparin 40 MG/0.4 ML Syringe SC (09:18)
[2021-06-16] MEDS: Escitalopram Oxalate 20 MG Tablet PO (09:18)
[2021-06-16] MEDS: busPIRone 5 MG Tablet 10 MG PO (09:18)
--- NOTE | 2021-06-16 10:39 | DS.PCM_ITS ---
Providers Date of Admission: 06/13/21 Primary Care Physician: [facility] Consultations 06/14/21 10:49 Consult: General Surgery Routine Consulting Provider: Blanca Mcguire Reason for Consult: acute pancreatitis, suspect due to gallstones EMERGENT Consult: No MD Notified: Yes Date Notified: 06/14/21 Time Notified: 10:49 Method of Notification: Text Reason For Visit: ACUTE PANCREATITIS Diagnosis Discharge Diagnosis (1) S/P laparoscopic cholecystectomy: Status: Acute Code(s): Z90.49 - Acquired absence of other specified parts of digestive tract (2) Acute pancreatitis: Status: Acute Code(s): K85.90 - Acute pancreatitis without necrosis or infection, unspecified Qualifiers: Pancreatitis type: unspecified pancreatitis type Acute pancreatitis complication: unspecified Qualified Code(s): K85.90 - Acute pancreatitis without necrosis or infection, unspecified (3) GERD (gastroesophageal reflux disease): Status: Acute Code(s): K21.9 - Gastro-esophageal reflux disease without esophagitis Medications at Discharge Home Medications buspirone 10 mg PO BID 06/13/21 escitalopram oxalate 20 mg PO DAILY 06/13/21 hyoscyamine sulfate 0.375 mg PO Q8H PRN 06/13/21 oxycodone-acetaminophen [Percocet] 1 - 2 tab PO Q6H PRN 3 Days #15 tab 06/16/21 pantoprazole 40 mg PO DAILY #30 tab 06/16/21 Hospital Course Operations None Procedures None Summary of Care Provided Minutes Spent on Discharge: 45 Hospital Course: Patient is a 50 y/o female with a PMH of anxiety and depression, morbid obesity and GERD and nicotine dependence. She was admitted via the ED on 06/13/2021 with a complaint of abdominal pain. Of note, patient had recenty been diagnosed with colitis in may [address] abdomen findings which showed circumferential wall thickening of the cecum and ascending colon and terminal ileum. This episode of abdominal pain had been going on for ~ 2 weeks, and radiated to her back. Labs showed elevated lipase of 1186. She was admitted to be managed for acute pancreatitis. Gallbladder USG showed dependent biliary sludge in the gallbladder vs small gallstones. General surgery was consulted and she had laparoscopic cholecystectomy on 06/15/2021. She tolerated the surgery well and pain resolved. Her diet was advanced, which she tolerated. She remained stable and was discharged home on 06/16/2021. She is to follow up with her PCP and general surgery. Patient seen and examined prior to discharge. She felt much better and had no complaints. Review of systems was otherwise negative. Labs and vitals reviewed. Home medications reviewed and reconciled. Physical Exam Const alert, oriented x3 and no apparent distress General Appearance: cooperative and comfortable Exam Limitations: no limitations Nutritional Appearance: morbidly obese HEENT normocephalic, head/scalp atraumatic, hearing grossly normal bilaterally and moist oral mucous membranes Eyes PERRL, EOMs intact bilaterally and conjunctivae normal Neck no lymphadenopathy Resp normal respiratory effort, no retractions, no use of accessory muscles and clear to auscultation bilaterally Cardio regular rate, regular rhythm, S1 normal heart sound, S2 normal heart sound and no murmurs GI normal to inspection, nondistended, normoactive bowel sounds, soft to palpation, non-tender and non-distended GI Narrative: intact dressing over laparoscopic sites. Extremity normal to inspection, full ROM and no clubbing, cyanosis or edema Skin no rashes or lesions noted Neuro oriented x3, CN's II-XII intact bilaterally and moves all extremities Sensorium / Orientation: awake and alert Psych affect normal Weight / BMI Weight Weight: 264 lb 8.875 oz Body Mass Index (BMI) 44.6 ABG / Lab / Microbiology Data Result Diagrams: 06/16/21 05:23 06/15/21 09:00 Laboratory: Laboratory Results - last 24 hr 06/16/21 05:23: WBC 8.4, RBC 4.07 L, Hgb 11.3 L, Hct 34.1 L, MCV 83.8, MCH 27.8, MCHC 33.1, RDW Std Deviation 37.7, RDW Coeff of Mohsen 12.4, Plt Count 224, MPV 9.7, Immature Gran % (Auto) 0.500, Neut % (Auto) 85.2 H, Lymph % (Auto) 7.2 L, [place] % (Auto) 7.0, Eos % (Auto) 0.0, Baso % (Auto) 0.1, Absolute Neuts (auto) 7.2, Absolute Lymphs (auto) 0.61 L, Nucleated RBC % 0 Microbiology: Microbiology 06/14/21 13:10 Nasal Secretion SARS-CoV-2 Antigen (Rapid) - Final Radiography Diagnostic Testing: Radiology Impression Cholangiogram 06/15/21 11:30 IMPRESSION: Unremarkable intraoperative cholangiogram. Electronically Signed: Juno Tracy MD at 13:22 EDT Tel , Service support , D/C Instructions Discharge Diet: Light diet - advance as tolerated May shower in (days): 1 Call your doctor if your incision/area has: Continuous Slow Oozing, Sudden Increased Bleeding, Increased Pain/ Swelling, Increased Redness, Foul Smelling Discharge and Swelling at the incision site Call your doctor if you observe: Fever of 101 or Higher Cleanse incision/area with: Soap & Water Additional Dressing/Incision Instructions: Steri-Strips will fall off in 7 to 10 days, if they do not fall off okay to remove after 10 days. Please Follow Up With: Blanca Mcguire MD When: Call the office for a follow-up appointment 2 weeks; after 5 PM and on the weekends call [phone] with any concerns. Meaningful Use Info Meaningful Use Diagnoses (Choose all that apply): None applicable Discharge Plan Admission Admit Date/Time: 06/13/21 14:35 Primary Reason for Your Visit: acute pancreatitis, likely due to gallstones Attending Provider: Liliana Whaley Primary Care Provider: [facility]on Dukes Consulting Providers: Blanca Mcguire Discharge Orders/Prescriptions Prescriptions: New pantoprazole 40 mg tablet,delayed release (DR/EC) 40 mg PO DAILY Qty: 30 RF: 3 oxycodone-acetaminophen [Percocet] 5-325 mg tablet 1 - 2 tab PO Q6H PRN (Reason: pain) 3 Days Qty: 15 RF: 0 Continued hyoscyamine sulfate 0.375 mg tablet extended release 12 hr 0.375 mg PO Q8H PRN (Reason: Spasms) RF: 0 buspirone 10 mg tablet 10 mg PO BID RF: 0 escitalopram oxalate 20 mg tablet 20 mg PO DAILY RF: 0 Discontinued famotidine 20 mg tablet 20 mg PO BID RF: 0 Referrals / Follow Up: Blnaca Mcguire MD [STAFF PHYSICIAN] - [facility] - Within 2 Weeks Disposition Disposition (needs filled in before D/C Order can be placed): Home, Self Care Charges/Coding Visit Charges Inpatient E&M: 68672 Disch Hosp
== END 2021-06-16 12:17 | disposition home or self-care (01) | DRG 417 ==
LOC: ED 14:28 → MS2 16:07
PROVIDERS: Surgery; Admitting Provider Family Medicine; Emergency Provider Emergency Medicine; Visit Provider Student in an Organized Health Care Education/Training Program
PROC: 0FT44ZZ Resection of Gallbladder, Percutaneous Endoscopic Approach (ICD-10-PCS; CPT 47610; principal; 2021-06-15 11:10)
DX: K80.20 Calculus of gallbladder without cholecystitis without obstruction (principal); K85.90 Acute pancreatitis without necrosis or infection, unspecified; Z68.41 Body mass index [BMI] 40.0-44.9, adult; K82.8 Other specified diseases of gallbladder; D35.02 Benign neoplasm of left adrenal gland; K66.0 Peritoneal adhesions (postprocedural) (postinfection); K76.0 Fatty (change of) liver, not elsewhere classified; K21.9 Gastro-esophageal reflux disease without esophagitis; R03.0 Elevated blood-pressure reading, without diagnosis of hypertension; E66.01 Morbid (severe) obesity due to excess calories; F32.A Depression, unspecified; F41.9 Anxiety disorder, unspecified; Z87.19 Personal history of other diseases of the digestive system; Z79.899 Other long term (current) drug therapy; Z87.891 Personal history of nicotine dependence
CPT/HCPCS: 36415; 71045; 74300; 76000; 76705; 80053; 80061; 83690; 85025; 87426; 88304; 93005; 97802; 99251; 99284; 99406; J7030; J7040; J7120; A4216; G0463; J2405

== ENCOUNTER → 2021-06-22 13:05 | Outpatient (CLI) | payer OTHER, SELFPAY ==
[2021-06-22 13:22] LABS: Absolute Neutrophil Count 8.2 X10^3/uL (2.0-7.7); Basophil# 0.04 X10^3/uL; Basophil% 0.4 % (0-1); Eosinophil# 0.19 X10^3/uL; Eosinophils% 1.7 % (0-5); Hematocrit 40.7 % (37-47); Hemoglobin 13.5 g/dL (12.0-15.0); Lymphocyte % 12.8 % (19-41); Mean Corp Hgb Conc 33.2 g/dL (32-36); Mean Corpuscular Hgb 27.8 pg (27.0-32.0); Mean Corpuscular Volume 83.7 fL (81-99); Mean Platelet Vol. 9.5 fl (6.2-12.0); Monocyte# 1.06 X10^3/uL; Monocyte% 9.7 % (0-10); NRBC Flagged by Analyzer 0 % (0-5); Neutrophil # 8.21 X10^3/uL (2.7-7.7); Neutrophil % 74.9 % (47-70); Platelet Count 349 K/mm3 (150-450); RBC Distribution Width CV 12.7 % (11.6-14.6); RBC Distribution Width SD 38.1 fl (35.1-43.9); Red Blood Count 4.86 M/mm3 (4.2-5.4)
[2021-06-22 13:38] LABS: AST(SGOT) 37 U/L (15-37); Alanine Aminotransfer ALT/SGPT 88 U/L (13-56); Albumin, Serum 2.8 g/dL (3.2-5.0); Alkaline Phosphatase 81 U/L (45-117); Lipase 355 U/L (73-393); Protein, Total 7.8 g/dL (6.4-8.2)
--- NOTE | 2021-06-22 15:02 | CT_ITS ---
STUDY: CT ABDOMEN AND PELVIS WITH CONTRAST REASON FOR EXAM: Female, 50 years old. abdominal pain RADIATION DOSAGE (If Supplied By Facility): CTDIvol = ( 13.75 ) mGy, DLP = ( 1285.29 ) mGycm TECHNIQUE: Transaxial images were obtained from the dome of the diaphragm to the symphysis pubis without oral contrast. Oral and amp; IV Gastrografin and amp; 100mL Isovue-370 was administered. Sagittal and coronal images were reconstructed. Individualized dose optimization techniques were used for this CT. COMPARISON: 06/02/2021 FINDINGS: There is minor subsegmental atelectasis in the lower lobes.. The visualized portions of the heart are within normal limits. Nonspecific fatty infiltration of liver without mass or bile duct dilatation. Gallbladder not visualized consistent with prior cholecystectomy.. Normal spleen. Normal pancreas. Right adrenal is normal. There is a small left adrenal nodule measuring 1.92 x 1.86 cm of uncertain etiology which may be further assessed with MRI.. Normal right kidney. Normal left kidney. Normal visualized stomach. Concentric thickening of the hernandez of the terminal ileum, cecum and proximal ascending colon which may be consistent with nonspecific ileocolitis possibly Crohn''s disease.. Appendix is upper normal size measuring approximately 8 mm in diameter which may represent early changes of acute appendicitis however clinical correlation is recommended.. Minor atherosclerotic changes of the aorta without evidence for aneurysm. Normal inferior vena cava. Mildly prominent retroperitoneal and mesenteric nodes with mild stranding in the fat may be consistent with mesenteric adenitis. Incompletely distended thick-walled bladder likely of no significance. Small amount of free fluid in the pelvis. Normal abdominal wall. Normal osseous structures. CT/Abdomen/Pelvis WITH Contrast IMPRESSION: Findings which may be consistent with nonspecific ileocolitis possibly Crohn''s disease. No evidence for small bowel obstruction. Appendix is upper normal in size. Cannot definitively exclude early changes of acute appendicitis however clinical correlation recommended Left adrenal nodule of uncertain etiology which may be further assessed with MRI if clinically indicated Status post cholecystectomy Electronically Signed: Santiago Jackson MD at 17:46 EDT , Service support ,
--- NOTE | 2021-06-22 15:02 | VDLE_ITS ---
Reason For Study: LLE pain RIGHT LEFT CFV is compressible, spontaneous, phasic, GSV is normal. competent and demonstrates normal CFV is compressible, spontaneous, phasic, augmentation. competent, and demonstrates normal Procedure augmentation. This is a venous duplex using B-mode, color FV is compressible, spontaneous, phasic, flow and spectral Doppler. competent and demonstrates normal Exam performed in department. augmentation. A preliminary report was called and/or faxed POP V is compressible, spontaneous, phasic, to Christi @ [facility] @ 3:20 pm. competent and demonstrates normal PT will call [facility] in am if augmentation. she does not hear from them today. T/P Trunk is compressible. LT PerV is compressible. PTV is DILATED & NON-COMPRESSIBLE C/W ACUTE DVT. VL/Venous Duplex US, Unilateral Interpretation Summary Acute deep venous thrombosis left posterior tibial vein. Patent and compressible left great saphenous vein. Normal flow patterns right common femoral vein Ordering Physician: Blanca Mcguire Referring Physician: [facility] Performed By: Juanita Medina, MANUELA, RVT
== END | disposition home or self-care (01) ==
PROVIDERS: Referring Provider Surgery; Visit Provider Surgery
DX: M79.605 Pain in left leg (principal); R10.13 Epigastric pain; Z90.49 Acquired absence of other specified parts of digestive tract; Z87.19 Personal history of other diseases of the digestive system
CPT/HCPCS: 36415; 74177; 80076; 83690; 85025; 93971; Q9967

== ENCOUNTER 2021-06-29 21:40 | Emergency (ER) | payer OTHER, SELFPAY ==
[2021-06-29 21:40] VITALS: BP 160/88; PULSE 110; RESP 18; TEMP 36.6; O2SAT 98; BMI 44.2
--- NOTE | 2021-06-29 22:07 | ED.VIS.GI ---
HPI HPI - GI History of Present Illness Chief Complaint: Abd Pain Informant: patient Abdominal Pain/Flank Pain Onset: Days (3) Context: Gradual Onset Timing: Continuous Quality: - (Squeezing) Location: Epigastric, RUQ and LUQ Worsened by: Nothing Relieved by: Nothing Nausea/Vomiting/Emesis GI Symptom: Positive for Nausea; Negative for Vomiting Diarrhea/Melena/Hematochezia GI Symptom: Positive for Diarrhea; Negative for Melena and Hematochezia Associated Symptoms Associated Symptoms: Positive for Dysuria; Negative for Frequency and Hematuria Narrative Narrative: Patient presents with abdominal pain that has been getting worse over the past 3 days. Patient had recent cholecystectomy. Patient states that her pain is over the upper abdomen and feels similar to the pain she had prior to her cholecystectomy. Patient had a recent CT scan of her abdomen pelvis which showed inflammation of the ileum and cecum. Patient was started on antibiotics for that. Patient states she has been having some diarrhea and nausea. Patient admits to decreased appetite. Patient denies any fevers or chills. Patient denies any cough. Patient states her pain is over the upper abdomen and radiates into her back. Patient states nothing makes it worse and nothing makes it better. [facility] Medical History Abdominal pain Abnormal CT scan Anxiety and depression Former tobacco use GERD (gastroesophageal reflux disease) Left leg pain Morbid obesity Home Medications buspirone 10 mg PO BID 06/13/21 [History Last Taken 06/11/21] escitalopram oxalate 20 mg PO DAILY 06/13/21 [History Last Taken 06/11/21] hyoscyamine sulfate 0.375 mg PO Q8H PRN 06/13/21 [History Last Taken 06/13/21] pantoprazole 40 mg PO DAILY #30 tab 06/16/21 [Rx Last Taken Unknown] ciprofloxacin HCl [Cipro] 500 mg PO BID #14 tab 06/22/21 [Rx Last Taken Unknown] metronidazole 500 mg PO Q8H #21 tab 06/22/21 [Rx Last Taken Unknown] hydrocodone-acetaminophen 1 tab PO Q6H PRN PRN 3 Days #10 tablet 06/30/21 [Rx Last Taken Unknown] Allergy/AdvReac Type Severity Reaction Status Date / Time No Known Allergies Allergy Verified 06/22/21 12:40 Family History Father Diabetes Mother Hypertension Brother Hypertension Family History no significant family his Surgical History History of cholecystectomy (~06/2021) S/P section S/P rotator cuff repair Social History household members: family Smoking Status: Former smoker how long ago did patient quit smoking: Quit 2 years prior, smoked 1/2 ppd since she was a teenager until quitting. alcohol intake: never substance use type: does not use ROS ROS ED Constitutional Constitutional ED: Denies chills or fever(s) Eyes Eyes: Denies blurry vision or change in vision ENT ENT ED: Denies rhinorrhea or sore throat Cardiovascular Cardiovascular: Denies chest pain or palpitations Respiratory/Chest Respiratory/Chest: Denies cough or dyspnea Gastrointestinal Gastrointestinal: Reports abdominal pain, diarrhea and nausea; Denies melena or vomiting Genitourinary Genitourinary ED: Denies dysuria or hematuria Musculoskeletal Musculoskeletal: Reports back pain; Denies neck pain Integumentary Denies abscess or rash Neurologic Neurologic: Reports headache(s); Denies weakness Allergic/Immunologic Allergic/Immunologic ED: Denies mouth swelling or urticaria EXAM Physical Exam Const Vital Signs: 06/29/21 21:40 06/30/21 00:28 06/30/21 00:30 Temperature 98 F 97.7 F L 97.7 F L Temperature Source Temporal Oral Oral Pulse Rate 110 H 85 85 Respiratory Rate 18 16 16 Blood Pressure 160/88 H 142/82 H 142/82 H Blood Pressure Mean 112 102 102 Pulse Ox 98 96 96 Oxygen Delivery Method Room Air Room Air Room Air Positive well nourished and well developed General Appearance ED: well developed HEENT Reports moist mucous membranes Neck supple and no JVD Resp normal respiratory effort and clear to auscultation bilaterally Cardio regular rate, regular rhythm and no murmurs GI normal to inspection, nondistended, normoactive bowel sounds Palpation: soft and tender epigastric, LUQ and RUQ; Negative for guarding or rebound tenderness present Extremity normal to inspection General Extremety ED: Negative for edema or tenderness General Extremity: Negative for edema Neuro oriented x3, CN's II-XII intact bilaterally and no sensory deficits noted Sensorium / Orientation: alert Motor Exam: strength 5/5 throughout Psych mental status grossly normal Skin no rashes or lesions noted MDM MDM MDM Narrative Medical decision making narrative: Patient was given IV fluids, morphine, and Zofran here. CBC was within normal limits. Comprehensive metabolic profile was normal. Lipase was normal. Urinalysis does not show any evidence of urinary tract infection. Right upper quadrant ultrasound was obtained. There is no retained stone noted. The common bile duct was normal. This was interpreted by the radiologist and reviewed by myself. Patient was advised of her findings. Patient was given a prescription for short course of [place]. Patient was instructed to continue her antibiotics. Patient was instructed to follow-up with her primary care physician, chemical engineering technologist, and surgeon in 5 to 7 days. Patient understood and was agreeable with the plan. All questions were answered. Lab Data Attestation: I reviewed the patient's lab results. Labs: Laboratory Results - last 24 hr 06/29/21 06/29/21 06/29/21 22:19 22:19 23:25 WBC 8.7 RBC 4.33 Hgb 12.0 Hct 36.7 L MCV 84.8 MCH 27.7 MCHC 32.7 RDW Std Deviation 38.7 RDW Coeff of Mohsen 12.5 Plt Count 329 MPV 9.7 Immature Gran % (Auto) 0.600 Neut % (Auto) 77.4 H Lymph % (Auto) 11.2 L [place] % (Auto) 7.9 Eos % (Auto) 2.4 Baso % (Auto) 0.5 Absolute Neuts (auto) 6.7 Absolute Lymphs (auto) 0.97 Nucleated RBC % 0 Sodium 141 Potassium 3.8 Chloride 106 Carbon Dioxide 30.0 Anion Gap 5 BUN 7 Creatinine 0.71 Estim Creat Clear Calc 81.86 Est GFR (MDRD) Af Amer 112 Est GFR (MDRD) Non-Af 92 BUN/Creatinine Ratio 9.9 L Glucose 106 Calcium 8.4 L Total Bilirubin 0.10 L AST 15 ALT 22 Alkaline Phosphatase 62 Total Protein 6.9 Albumin 2.6 L Globulin 4.3 H Albumin/Globulin Ratio 0.6 L Lipase 366 Urine Color Yellow Urine Clarity Clear Urine pH 6.0 Ur Specific [place] 1.020 Urine Protein 15 H Urine Glucose (UA) Normal Urine Ketones Negative Urine Occult Blood Negative Urine Nitrite Negative Urine Bilirubin Negative Urine Urobilinogen Normal Ur Leukocyte Esterase 500 H Urine RBC 0 SEEN Urine WBC 5-10 SEEN Ur Squamous Epith Cells 0-5 SEEN Calcium Oxalate Crystal 1+ Urine Bacteria RARE Urine Mucus RARE Radiography Diagnostic Testing: Clinical Impression(s) from Imaging Studies Gallbladder Ultrasound 06/29/21 22:08 IMPRESSION: No finding of retained calculus. Echogenic liver suggests steatosis. Electronically Signed: Jarrod Hollingsworth MD at 23:35 EDT Tel , Service support , Discharge Plan Triage Chief Complaint: Abd Pain ED Provider: Kev Barker Dx/Rx/DC Orders Clinical Impression: Abdominal pain Instructions: ED Abdominal Pain Unkn Cause Fem Prescriptions: New hydrocodone-acetaminophen [hydrocodone-acetaminophen] 1 TABLET tablet 1 tab PO Q6H PRN PRN (Reason: Pain) 3 Days Qty: 10 RF: 0 No Action hyoscyamine sulfate 0.375 mg tablet extended release 12 hr 0.375 mg PO Q8H PRN (Reason: Spasms) RF: 0 buspirone 10 mg tablet 10 mg PO BID RF: 0 escitalopram oxalate 20 mg tablet 20 mg PO DAILY RF: 0 pantoprazole 40 mg tablet,delayed release (DR/EC) 40 mg PO DAILY Qty: 30 RF: 3 ciprofloxacin HCl [Cipro] 500 mg tablet 500 mg PO BID Qty: 14 RF: 0 metronidazole 500 mg tablet 500 mg PO Q8H Qty: 21 RF: 0 Stand Alone Forms: ED Work / School Excuse [facility] Referrals: Cyril Morfin DO [STAFF PHYSICIAN] - Keep [facility] appointment Blanca Mcguire MD [STAFF PHYSICIAN] - [facility] [[facility] - 3-5 Days Disposition Disposition: Home, Self Care
--- NOTE | 2021-06-29 22:08 | US_ITS ---
STUDY: ABDOMINAL ULTRASOUND - RIGHT UPPER QUADRANT REASON FOR VISIT: Female, 50 years old PAIN -- Recent cholecystectomy, possible retained stone TECHNIQUE: Ultrasound evaluation of the right upper quadrant was performed with real-time and static allen-scale imaging. TECHNICAL QUALITY: Adequate. COMPARISON: 06/13/2021 FINDINGS: Liver: The liver measures 17.6 cm. There is increased echogenicity consistent with fatty infiltration. The bile ducts are within normal limits. There is hepatic color flow. The direction of portal flow is hepatopetal. There is no demonstrated mass lesion. Gallbladder: The patient is status post cholecystectomy. No finding of retained calculus. Common Bile Duct (C.B.D.): The common bile duct measures 7 mm. Pancreas: Normal size of the head and body of the pancreas. The tail obscured by gas. There is increased echogenicity of the pancreas. There is no demonstrated pancreatic mass or cyst. Right Kidney: Normal size of the right kidney. The right kidney measures 11.7 x 5.8 x 5.8 cm. Normal renal cortex. The right cortex measures 1.6 cm. There is no demonstrated renal mass or cyst. There is no right hydronephrosis. US/Gallbladder IMPRESSION: No finding of retained calculus. Echogenic liver suggests steatosis. Electronically Signed: Jarrod Hollingsworth MD at 23:35 EDT Tel , Service support ,
[2021-06-29] MEDS: Ondansetron 4 MG/2 ML Vial IV (22:24)
[2021-06-29] MEDS: Morphine 4 MG/ML Syringe IV (22:24)
[2021-06-29] MEDS: 0.9% Normal Saline 1,000 ML 1000 ML IV (22:26)
[2021-06-29 22:39] LABS: Absolute Lymphocyte Count 0.97 X10^3/uL (0.83-4.51); Absolute Neutrophil Count 6.7 X10^3/uL (2.0-7.7); Basophil# 0.04 X10^3/uL; Basophil% 0.5 % (0-1); Eosinophil# 0.21 X10^3/uL; Eosinophils% 2.4 % (0-5); Hematocrit 36.7 % (37-47); Lymphocyte # 0.97 X10^3/ul (0.83-4.51); Lymphocyte % 11.2 % (19-41); Mean Corp Hgb Conc 32.7 g/dL (32-36); Mean Corpuscular Hgb 27.7 pg (27.0-32.0); Mean Corpuscular Volume 84.8 fL (81-99); Mean Platelet Vol. 9.7 fl (6.2-12.0); Monocyte# 0.68 X10^3/uL; Monocyte% 7.9 % (0-10); NRBC Flagged by Analyzer 0 % (0-5); Neutrophil % 77.4 % (47-70); Platelet Count 329 K/mm3 (150-450); RBC Distribution Width CV 12.5 % (11.6-14.6); RBC Distribution Width SD 38.7 fl (35.1-43.9); Red Blood Count 4.33 M/mm3 (4.2-5.4); White Blood Count 8.7 K/mm3 (4.4-11.0)
[2021-06-29 22:59] LABS: ALB/GLOB Ratio 0.6 RATIO (0.9-2.4); AST(SGOT) 15 U/L (15-37); Alanine Aminotransfer ALT/SGPT 22 U/L (13-56); Albumin, Serum 2.6 g/dL (3.2-5.0); Alkaline Phosphatase 62 U/L (45-117); Anion Gap 5 (5-15); BUN 7 mg/dL (7-18); BUN/Creat Ratio 9.9 RATIO (10-20); Calcium,Total 8.4 mg/dL (8.5-10.1); Chloride 106 mmol/L (98-107); Creatinine, Serum 0.71 mg/dL (0.55-1.02); EST Glomerular Filtration Rate 92 mL/min (>60); Est Glom Filt Rate - Afr Amer 112 mL/min (>60); Estimated Creatinine Clearance 81.86 ml/min; Globulin 4.3 g/dL (2.2-4.2); Glucose 106 mg/dL (74-106); Lipase 366 U/L (73-393); Potassium 3.8 mmol/L (3.5-5.1); Protein, Total 6.9 g/dL (6.4-8.2); Sodium Level 141 mmol/L (136-145)
[2021-06-29 23:34] LABS: Red Blood Cells-Urine 0 SEEN /hpf (0-5)
[2021-06-29 23:39] LABS: Color, Urine Yellow (Yellow); Glucose, Dipstick Normal (Normal); Ketone-Dipstick Negative (Negative); Leukocyte Esterase-Dipstick 500 /ul (Negative); Nitrite-Dipstick Negative (Negative); Occult Blood-Urine Negative /ul (Negative); Protein-Dipstick 15 mg/dl (Negative); Urine Bilirubin Dipstick Negative (Negative); Urine Clarity Clear (Clear); Urine Urobilinogen Normal (Normal)
[2021-06-30 00:11] LABS: Calcium Oxalate Crystals Ur 1+ /hpf (<or=2+); White Blood Cells 5-10 SEEN /hpf (0-5)
[2021-06-30 00:12] LABS: Bacteria RARE /hpf (None Seen); Mucous, Urine RARE /hpf (<or=2+); Squamous Epithelial Cells - UA 0-5 SEEN /hpf (5-10)
[2021-06-30 00:28] VITALS: BP 142/82; PULSE 85; RESP 16; TEMP 36.5; O2SAT 96
[2021-06-30 00:30] VITALS: BP 142/82; PULSE 85; RESP 16; TEMP 36.5; O2SAT 96
[2021-06-30] MEDS: Morphine 4 MG/ML Syringe IV (01:17)
== END 2021-06-30 01:57 | disposition home or self-care (01) ==
PROVIDERS: Emergency Provider Emergency Medicine
DX: R10.11 Right upper quadrant pain (principal); R10.12 Left upper quadrant pain; R10.13 Epigastric pain; R19.7 Diarrhea, unspecified; R11.0 Nausea; E66.01 Morbid (severe) obesity due to excess calories; Z68.41 Body mass index [BMI] 40.0-44.9, adult; F32.A Depression, unspecified; F41.9 Anxiety disorder, unspecified; K21.9 Gastro-esophageal reflux disease without esophagitis; Z90.49 Acquired absence of other specified parts of digestive tract; Z79.899 Other long term (current) drug therapy; Z87.891 Personal history of nicotine dependence
CPT/HCPCS: 76705; 80053; 81001; 83690; 85025; 96361; 96374; 96375; 96376; 99283; J7030; A4216; J2405

== ENCOUNTER 2021-07-08 06:12 | Emergency (ER) | payer OTHER, SELFPAY ==
[2021-07-08 06:12] VITALS: BP 149/88; PULSE 100; RESP 16; TEMP 36.8; O2SAT 95; BMI 43.8
--- NOTE | 2021-07-08 06:27 | ED.VIS.GI ---
HPI HPI - GI History of Present Illness Chief Complaint: Abd Pain Informant: patient Abdominal Pain/Flank Pain Onset: Month(s) (1+) Context: Gradual Onset Timing: Continuous and Waxes and wanes Quality: Aching (And bloating) Location: Diffuse (More upper abdomen nonlateralizing) Current Severity: Moderate Maximum Severity: Moderate Worsened by: - (Vomiting) Relieved by: Nothing Nausea/Vomiting/Emesis GI Symptom: Positive for Nausea and Vomiting Onset: Today (For about the past 4 hours) Quality: Positive for Nonbilious; Negative for Blood streaks, Coffee ground and Hematemesis Diarrhea/Melena/Hematochezia GI Symptom: Positive for - (Stools switch between diarrhea and constipation, last bowel movement was 2 hours ago and was in between somewhat loose) Associated Symptoms Associated Symptoms: Negative for Dysuria, Frequency, Hematuria and Urgency Narrative Narrative: Patient has been having this abdominal symptoms with pain and bloating along with vomiting for the past 5 weeks or more, she was here and had an ultrasound that showed sludge versus stones, she has surgical consultation after she was admitted for pain and ended up having a cholecystectomy, and she states after surgery she continues to have the symptoms. She presents this morning because they are worse but they are the same symptoms. She has had CT scans that have indicated some possible colonic inflammation, she has had some elevation of liver enzymes and lipase. She is scheduled to see gastroenterology in several days for a scope. She was concerned this morning she was not able to keep anything down. [facility] Medical History Abdominal pain Abnormal CT scan Anxiety and depression Former tobacco use GERD (gastroesophageal reflux disease) Left leg pain Morbid obesity Home Medications buspirone 10 mg PO BID 06/13/21 [History Last Taken 06/11/21] escitalopram oxalate 20 mg PO DAILY 06/13/21 [History Last Taken 06/11/21] hyoscyamine sulfate 0.375 mg PO Q8H PRN 06/13/21 [History Last Taken 06/13/21] pantoprazole 40 mg PO DAILY #30 tab 06/16/21 [Rx Last Taken Unknown] ciprofloxacin HCl [Cipro] 500 mg PO BID #14 tab 06/22/21 [Rx Last Taken Unknown] metronidazole 500 mg PO Q8H #21 tab 06/22/21 [Rx Last Taken Unknown] hydrocodone-acetaminophen 1 tab PO Q6H PRN PRN 3 Days #10 tablet 06/30/21 [Rx Last Taken Unknown] dicyclomine 10 mg capsule 10 mg PO TID #90 cap 07/01/21 [Rx Last Taken Unknown] prednisone 20 mg tablet 40 mg PO DAILY #60 tab 07/01/21 [Rx Last Taken Unknown] tramadol 50 mg tablet 50 mg PO Q6H PRN #30 tab 07/01/21 [Rx Last Taken Unknown] ondansetron 8 mg disintegrating tablet 8 mg PO Q8H PRN #30 tab 07/06/21 [Rx Last Taken Unknown] hydrocodone-acetaminophen 1 tab PO Q4H PRN PRN 2 Days #10 tablet 07/08/21 [Rx Last Taken Unknown] metoclopramide HCl 10 mg PO Q6H PRN #20 tab 07/08/21 [Rx Last Taken Unknown] Allergy/AdvReac Type Severity Reaction Status Date / Time No Known Allergies Allergy Verified 07/08/21 06:14 Family History Father Diabetes Mother Hypertension Brother Hypertension Surgical History History of cholecystectomy (~06/2021) S/P section S/P rotator cuff repair Social History household members: family Smoking Status: Former smoker how long ago did patient quit smoking: Quit 2 years prior, smoked 1/2 ppd since she was a teenager until quitting. alcohol intake: never substance use type: does not use ROS ROS ED Constitutional Constitutional ED: Denies chills or fever(s) Eyes Eyes: Denies change in vision or diplopia ENT ENT ED: Denies rhinorrhea or sore throat Cardiovascular Cardiovascular: Denies chest pain or palpitations Respiratory/Chest Respiratory/Chest: Denies cough or dyspnea Gastrointestinal Gastrointestinal: Reports as per HPI, abdominal pain, constipation, diarrhea, nausea and vomiting Genitourinary Genitourinary ED: Denies dysuria or hematuria Musculoskeletal Musculoskeletal: Denies back pain or neck pain Integumentary Denies abscess or rash Neurologic Neurologic: Denies headache(s), paresthesias or weakness Psychiatric Psychiatric: Denies anxiety or suicidal thoughts EXAM Physical Exam Const Vital Signs: 07/08/21 06:12 Temperature 98.2 F Temperature Source Temporal Pulse Rate 100 Respiratory Rate 16 Blood Pressure 149/88 H Blood Pressure Mean 108 Pulse Ox 95 Positive well nourished and well developed General Appearance ED: well developed and NAD HEENT Reports moist mucous membranes normocephalic and atraumatic Eyes PERRL and EOMs intact bilaterally Neck full ROM and supple Resp normal respiratory effort and clear to auscultation bilaterally Cardio regular rate, regular rhythm and no murmurs GI non-distended GI Narrative: Mildly distended. Normal bowel sounds. Diffusely tender, mostly upper abdomen. Auscultation: normoactive bowel sounds Palpation: soft Back/Spine no CVA tenderness General Back: other FROM Extremity normal to inspection General Extremety ED: Negative for edema, pulses abnormal or tenderness General Extremity: Negative for edema or pulses abnormal Neuro oriented x3, CN's II-XII intact bilaterally and no sensory deficits noted Sensorium / Orientation: awake and alert Motor Exam: strength 5/5 throughout Skin no rashes or lesions noted and no wounds MDM MDM MDM Narrative Medical decision making narrative: Lab work reviewed. Liver enzymes and lipase are now normal, but now she does have a bit of a leukocytosis. Is similar to what she had when she first came to the hospital, it came down subsequently. Her CT scan showed some suspicion for ileocecal inflammatory abnormalities. She has seen Dr. Morfin and is following up with him for colonoscopy in a little more than a week on July 18, I discussed with him and he agrees that repeating imaging is probably not worthwhile especially since the patient is having bowel movements and does not clinically present like a bowel obstruction nor an intra-abdominal acute infection, given that she basically has the same symptoms that she did when she was here in the hospital. He agrees with treating her symptoms for now so that the colonoscopy can be interpreted properly in context. I discussed all this with the patient, after receiving morphine, Reglan, IV fluid she is feeling much better. We will give her prescriptions for Reglan and Nitro all to use as needed until she follows up. We discussed reasons to return she is comfortable with that plan. Lab Data Attestation: I reviewed the patient's lab results. Labs: Laboratory Results - last 24 hr 07/08/21 07/08/21 06:15 06:15 WBC 14.6 H RBC 5.01 Hgb 13.7 Hct 41.5 MCV 82.8 MCH 27.3 MCHC 33.0 RDW Std Deviation 38.2 RDW Coeff of Mohsen 12.7 Plt Count 423 MPV 9.8 Immature Gran % (Auto) 0.800 Neut % (Auto) 79.5 H Lymph % (Auto) 7.8 L [place] % (Auto) 10.6 H Eos % (Auto) 1.0 Baso % (Auto) 0.3 Absolute Neuts (auto) 11.6 H Absolute Lymphs (auto) 1.14 Nucleated RBC % 0 Differential Comment SCANNED Diff Path Review January foll Sodium 139 Potassium 3.7 Chloride 102 Carbon Dioxide 30.0 Anion Gap 7 BUN 14 Creatinine 0.94 Estim Creat Clear Calc 61.83 Est GFR (MDRD) Af Amer 81 Est GFR (MDRD) Non-Af 67 BUN/Creatinine Ratio 15.0 Glucose 106 Calcium 8.6 Total Bilirubin 0.30 AST 20 ALT 32 Alkaline Phosphatase 67 Total Protein 7.3 Albumin 2.7 L Globulin 4.6 H Albumin/Globulin Ratio 0.6 L Lipase 366 Discharge Plan Triage Chief Complaint: Abd Pain ED Provider: Adam Hernandez Dx/Rx/DC Orders Clinical Impression: Epigastric abdominal pain, Vomiting Instructions: ED Epigastric Pain Uncertain Cause Prescriptions: New hydrocodone-acetaminophen [hydrocodone-acetaminophen] 1 TABLET tablet 1 tab PO Q4H PRN PRN (Reason: Pain) 2 Days Qty: 10 RF: 0 metoclopramide HCl [metoclopramide HCl] 10 MG tablet 10 mg PO Q6H PRN (Reason: nausea and vomiting) Qty: 20 RF: 0 No Action prednisone 20 mg tablet 40 mg PO DAILY Qty: 60 RF: 2 tramadol 50 mg tablet 50 mg PO Q6H PRN (Reason: pain) Qty: 30 RF: 0 dicyclomine 10 mg capsule 10 mg PO TID Qty: 90 RF: 0 hyoscyamine sulfate 0.375 mg tablet extended release 12 hr 0.375 mg PO Q8H PRN (Reason: Spasms) RF: 0 buspirone 10 mg tablet 10 mg PO BID RF: 0 escitalopram oxalate 20 mg tablet 20 mg PO DAILY RF: 0 pantoprazole 40 mg tablet,delayed release (DR/EC) 40 mg PO DAILY Qty: 30 RF: 3 ciprofloxacin HCl [Cipro] 500 mg tablet 500 mg PO BID Qty: 14 RF: 0 metronidazole 500 mg tablet 500 mg PO Q8H Qty: 21 RF: 0 hydrocodone-acetaminophen [hydrocodone-acetaminophen] 1 TABLET tablet 1 tab PO Q6H PRN PRN (Reason: Pain) 3 Days Qty: 10 RF: 0 ondansetron 8 mg tablet,disintegrating 8 mg PO Q8H PRN (Reason: nausea and vomiting) Qty: 30 RF: 0 Stand Alone Forms: ED Work / School Excuse [facility] Referrals: Friend,DO Cyril [STAFF PHYSICIAN] - 07[facility]18/21 [facility]as scheduled) [facility] - Disposition Disposition: Home, Self Care
[2021-07-08] MEDS: 0.9% Normal Saline 1,000 ML 999 ML IV (06:31)
[2021-07-08] MEDS: Metoclopramide 10 MG/2 ML Vial 5 MG IV (06:31)
[2021-07-08 06:35] LABS: Absolute Lymphocyte Count 1.14 X10^3/uL (0.83-4.51); Absolute Neutrophil Count 11.6 X10^3/uL (2.0-7.7); Basophil# 0.05 X10^3/uL; Basophil% 0.3 % (0-1); Eosinophil# 0.14 X10^3/uL; Hematocrit 41.5 % (37-47); Hemoglobin 13.7 g/dL (12.0-15.0); Lymphocyte # 1.14 X10^3/ul (0.83-4.51); Lymphocyte % 7.8 % (19-41); Mean Corpuscular Hgb 27.3 pg (27.0-32.0); Mean Corpuscular Volume 82.8 fL (81-99); Mean Platelet Vol. 9.8 fl (6.2-12.0); Monocyte# 1.55 X10^3/uL; Monocyte% 10.6 % (0-10); NRBC Flagged by Analyzer 0 % (0-5); Neutrophil # 11.57 X10^3/uL (2.7-7.7); Neutrophil % 79.5 % (47-70); POSITIVE DIFFERENTIAL YES; Platelet Count 423 K/mm3 (150-450); RBC Distribution Width CV 12.7 % (11.6-14.6); RBC Distribution Width SD 38.2 fl (35.1-43.9); Red Blood Count 5.01 M/mm3 (4.2-5.4); White Blood Count 14.6 K/mm3 (4.4-11.0)
[2021-07-08 06:36] LABS: Differential Indicated SCAN CRITERIA MET
[2021-07-08 06:49] LABS: ALB/GLOB Ratio 0.6 RATIO (0.9-2.4); AST(SGOT) 20 U/L (15-37); Alanine Aminotransfer ALT/SGPT 32 U/L (13-56); Albumin, Serum 2.7 g/dL (3.2-5.0); Alkaline Phosphatase 67 U/L (45-117); Anion Gap 7 (5-15); BUN 14 mg/dL (7-18); Calcium,Total 8.6 mg/dL (8.5-10.1); Chloride 102 mmol/L (98-107); Creatinine, Serum 0.94 mg/dL (0.55-1.02); EST Glomerular Filtration Rate 67 mL/min (>60); Est Glom Filt Rate - Afr Amer 81 mL/min (>60); Estimated Creatinine Clearance 61.83 ml/min; Globulin 4.6 g/dL (2.2-4.2); Glucose 106 mg/dL (74-106); Lipase 366 U/L (73-393); Potassium 3.7 mmol/L (3.5-5.1); Protein, Total 7.3 g/dL (6.4-8.2); Sodium Level 139 mmol/L (136-145)
[2021-07-08 07:02] LABS: Differential Comment SCANNED
[2021-07-08] MEDS: Morphine 4 MG/ML Syringe IV (07:08)
[2021-07-08 08:01] VITALS: BP 138/81; PULSE 86; RESP 16; O2SAT 98
[2021-07-08 13:24] LABS: Pathologist Review Reviewed
== END 2021-07-08 08:01 | disposition home or self-care (01) ==
PROVIDERS: Emergency Provider Emergency Medicine
DX: R10.13 Epigastric pain (principal); R11.2 Nausea with vomiting, unspecified; F32.A Depression, unspecified; F41.9 Anxiety disorder, unspecified; K21.9 Gastro-esophageal reflux disease without esophagitis; E66.01 Morbid (severe) obesity due to excess calories; Z68.41 Body mass index [BMI] 40.0-44.9, adult; Z79.899 Other long term (current) drug therapy; Z87.891 Personal history of nicotine dependence
CPT/HCPCS: 80053; 83690; 85025; 96361; 96374; 96375; 99282; J7030; A4216

== ENCOUNTER 2021-07-13 05:23 | Day surgery (SDC) | payer OTHER, SELFPAY ==
--- NOTE | 2021-07-13 | COLBX_PTH ---
PATIENT: YENY CERON LOC: [facility] U#:[id number] AGE/SX: 50/F ROOM: RE07/13/[address]: Dr. Cyril Morfin DO : 1970 BED: DIS: 07/13/2021 SPEC #: [id number] RECD: 07/13/21 07:15 STATUS: [facility]ADY #: [id number] RISHABH: 07/13/21 00:[address]: Cyril Morfin DEPT: SURGICAL PATHOLOGY RECD BY: Serge Womack ENTERED: 07/13/21 09:40 SP TYPE: COLON BX OTHR DR: Alysha Amaya, SPONGE DIVER-[facility] Tissues: A - Duodenum, NOS B - Gastric mucous membrane C - Esophageal mucous membrane D - COLON BIOPSY E - Ascending colon F - Cecum, NOS G - Sigmoid colon biopsy H - Rectum, NOS Procedures: Surgery Specimen Level IV HEADER OPERATION: Colonoscopy, EGD ([facility]) PRE-OP DIAGNOSIS: Abnormal CT scan TISSUE SUBMITTED: A ? Duodenum biopsy, B ? Gastric antrum for H. pylori and path, C ? Random esophagus biopsy, D ? Biopsy of hepatic flexure polyp, E ? Ascending colon biopsy, rule out Crohn?s disease, F ? Cecum biopsy, G ? Sigmoid biopsy, H ? Rectal biopsy MICROSCOPIC DIAGNOSIS A. Duodenum, biopsy: No pathologic change. B. Gastric antrum, biopsy: Chronic gastritis. See comment. C. Esophagus, random biopsy: Fragments of benign squamous mucosa with no pathologic change. D. Colonic polyp at hepatic flexure, biopsy: Poorly differentiated adenocarcinoma. See comment. E. Ascending colon, biopsy: Fragments of tubular adenoma with high-grade dysplasia. Poorly differentiated adenocarcinoma. See comment. F. Cecum, biopsy: Poorly differentiated adenocarcinoma. G. Sigmoid colon, biopsy: No pathologic change. H. Rectum, biopsy: No pathologic change. AM:twan 07/15/2021 COMMENT B. The results of immunohistochemistry for Helicobacter pylori will be reported separately ([id number]). C. A colonic primary is favored. D&E. Immunohistochemistry ([id number]) supports the above diagnosis and is consistent with a colonic primary. Case has been reviewed in consultation with Dr. Cadena who concurs with the above diagnosis. IDC:SJ MICROSCOPIC DESCRIPTION Slides are reviewed. GROSS DESCRIPTION A - Received in fixative is one container labeled with the patient's name and designated duodenum biopsy. The specimen consists of multiple irregular fragments of light lees soft tissue that in aggregate measure 0.5 x 0.4 x 0.1 cm. The specimen is totally submitted in one cassette. B - Received in fixative is one container labeled with the patient's name and designated gastric antrum biopsy. The specimen consists of multiple irregular fragments of light lees soft tissue that in aggregate measure 0.8 x 0.5 x 0.1 cm. The specimen is totally submitted in one cassette. C - Received in fixative is one container labeled with the patient's name and designated random esophagus biopsy. The specimen consists of multiple irregular fragments of light lees soft tissue that in aggregate measure 1 x 0.3 x 0.1 cm. The specimen is totally submitted in one cassette. D - Received in fixative is one container labeled with the patient's name and designated biopsy of hepatic flexure polyp. The specimen consists of multiple irregular fragments of light lees soft tissue that in aggregate measure 1.5 x 0.5 x 0.1 cm. The specimen is totally submitted in one cassette. E - Received in fixative is one container labeled with the patient's name and designated ascending colon biopsy. The specimen consists of multiple irregular fragments of light lees soft tissue that in aggregate measure 1 x 0.5 x 0.1 cm. The specimen is totally submitted in one cassette. F - Received in fixative is one container labeled with the patient's name and designated cecum biopsy. The specimen consists of multiple irregular fragments of light lees soft tissue that in aggregate measure 0.5 x 0.5 x 0.1 cm. The specimen is totally submitted in one cassette. G - Received in fixative is one container labeled with the patient's name and designated sigmoid biopsy. The specimen consists of one irregular fragment of light lees soft tissue that measures 0.3 x 0.3 x 0.1 cm. The specimen is totally submitted in one cassette. H - Received in fixative is one container labeled with the patient's name and designated rectum biopsy. The specimen consists of two irregular fragments of light lees soft tissue that in aggregate measure 0.4 x 0.3 x 0.1 cm. The specimen is totally submitted in one cassette. / SJ:rg 07/13/21 TC:0 [facility]: [id number] x8 ADDENDUM ADDENDUM ADDENDUM ADDENDUM ADDENDUM ADDENDUM ADDENDUM ADDENDUM ADDENDUM ADDENDUM ADDENDUM ADDENDUM ADDENDUM ADDENDUM ADDENDUM ADDENDUM ADDENDUM 08/15/2021 11:57 ADDENDUM 08/15/2021 11:57 ADDENDUM 08/15/2021 11:57 ADDENDUM 08/15/2021 11:57 ADDENDUM 08/15/2021 11:57 [facility] ADVANCED COLORECTAL CANCER NGS REPORT FROM [employer] RESULT SUMMARY: Abnormal IMMUNOTHERAPY BIOMARKERS: Tumor Mutation Tal[place]ott: Low (2.4 Mutations / MB) Microsatellite Instability: MSI Negative PERTINENT NEGATIVE RESULTS: The following genes are NEGATIVE for clinically relevant mutations. Mutational hotspots and surrounding exonic regions were interrogated for DNA level point mutations and indels (fusions not assayed). AKT1, APC, ATR, CHEK1, EGFR, EPCAM, ERBB2, ERBB4, FGFR1, FGFR3, FGFR4, HRAS, KRAS, MAP2K1, MET, MLH1, MSH2, MSH6, NRAS, NTRK1, PIK3CA, PMS2, POLD1, POLE, PTEN, SMAD4, STK11, TERT, TP53 Please see complete report in e-chart or EMR
[2021-07-13 05:52] VITALS: BP 147/54; PULSE 110; RESP 16; TEMP 36.2; O2SAT 98; BMI 43.0
[2021-07-13] MEDS: Lactated Ringers 1,000 ML 100 ML IV (06:04)
--- NOTE | 2021-07-13 06:30 | IMM_PTH ---
PATIENT: YENY CERON LOC: EN U#:[id number] AGE/SX: 50/F ROOM: RE07/13/[address]: Dr. Cyril Morfin DO : 1970 BED: DIS: 07/13/2021 SPEC #: [id number] RECD: 07/13/21 10:27 STATUS: LEVON REMayda #: [id number] RISHABH: 07/13/21 06:[address]: Cyril Morfin DEPT: IMMUNOHISTOCHEMISTRY RECD BY: Scarlet Steiner ENTERED: 07/13/21 10:28 SP TYPE: IMMUNO OTHR DR: Alysha Amaya, RN TRANSITION-C [facility] Tissues: B - Stomach, NOS D - COLON BIOPSY E - Ascending colon Procedures: H Pylori (initial) CK20 (add) CK5-6 (add) CK7 (add) CK8 (add) LANZA-2 (add) ER (add) MAMM (add) P53 (add) NJ (add) Vimentin (add) Pankeratin (initial) GATA3 (add) P40 (add) CDX2 (add) S-100 (add) PHYSICIAN & INSTITUTION [place] [id number] SPECIMEN INFORMATION: Tissue Source: B ? Gastric antrum, D ? Hepatic flexure polyp, E ? Ascending colon biopsy Clinical Info: Abnormal CT scan Specimen Number: [id number] B, D & E CPT code: 57935 x3, 07974 x18 METHODOLOGY: Deparaffinized sections of prefer/formalin-fixed tissue or PAP/DQ stained slides are incubated with monoclonal/polyclonal antibodies/oligonucleotide probes. Localization is made via biotin free immunoperoxidase method. Appropriate controls are performed and reacted as expected. Results on target cell population are indicated in the following table: RESULTS: ANTIBODY / CLONE RESULT Block B H Pylori (polyclonal) negative Block D ER (6F11) negative NJ (1E2) negative Mammaglobin (31A5) negative GATA3 (L50-823) negative AE1-3 (AE1/AE3/PCK26) negative CK7 (OV-TL12/30) negative CK8 (62yoezX14) positive CK20 (KS20.8) positive LANZA-2 (SP21) positive CDX2 (CSQ8564R) negative Vimentin (V9) negative S-100 (4C4.9) negative CK5-6 (D5 & 1684) negative P40 (BC28) negative P53 (DO-7) positive Block E AE1-3 (AE1/AE3/PCK26) negative CK7 (OV-TL12/30) negative CK8 (77xkvuO07) positive CK20 (KS20.8) positive LANZA-2 (SP21) positive These tests were developed and their performance characteristics determined by [facility]. They may not have been cleared or approved by the U.S. Food and Drug Administration. The FDA has determined that such clearance or approval is not necessary. The above immunohistochemical/dualISH markers are ordered and reviewed by the pathologist. INTERPRETATION: B. Gastric antrum, biopsy: Negative for Helicobacter pylori organisms. D. Colon at hepatic flexure, biopsy: Poorly differentiated adenocarcinoma. See comment. E. Ascending colon, biopsy: Poorly differentiated adenocarcinoma. See comment. AM:twan 07/15/2021 Comment: D & E ? IHC profile is consistent with colonic primary.
--- NOTE | 2021-07-13 06:31 | HP.PCM_ITS ---
History and Physical Date of Admission: 07/13/21 HPI Details: YENY CERON, is a 50 F who presents to the office today for further evaluation of abdominal pain. She was recently admitted to the hospital for worsening abdominal pain. She was discovered to have hyper lipase anemia. She had a CT scan abdomen of the abdomen pelvis on 06/02/2021 that had shown thickening of the ascending colon, cecum and terminal ileum along with diffuse lymphadenopathy. She was treated with conservative therapy. She underwent a laparoscopic cholecystectomy on 06/15/2021. She came back into the hospital 5 days later with worsening abdominal pain. The repeat CT scan after being treated with antibiotics had showed similar findings with diffuse lymphadenopathy, thickening of the ascending colon cecum and terminal ileum. She is having multiple episodes of diarrhea. She has been on ciprofloxacin and Flagyl for 14 days. She continued symptoms include nausea, vomiting, diarrhea, decreased appetite, change in taste, bloating, pain in upper abdomen with squeezing sensation that wraps around to her back, SOB with activity. This had been interfering with her work. Family history included mom with IBS. EGD performed 2 years prior due to feeling of something stuck in her throat. Results negative aside from diagnosis of GERD. Denies history of colonoscopy. ROS Const Constitutional: No anorexia, fatigue, fever(s), weight change or sleep problems Eyes Eyes: No change in vision ENT ENT: No abnormal hearing, difficulty swallowing, mouth lesions, tongue swelling or throat swelling Resp Respiratory: No cough or shortness of breath Cardio Cardiology: No chest pain at rest, chest pain with exertion, shortness of breath or dyspnea on exertion Gastro GI: No difficulty swallowing Genitourinary-Female: No difficulty urinating or burning urination Musc Musculoskeletal: No joint pain, joint swelling, muscle weakness or decreased muscle mass Skin Skin: No hair loss in leg, yellowing of the eye, itchy eyes, rash, skin ulcer or skin swelling Neuro Neurology: No abnormal hearing, abnormal movements, confusion, unsteady gait/balance or memory loss Psych Psychiatric: No anxiety, No confusion and No memory loss Endo Endocrine: No fatigue or weight change Aller/Imm Allergy/Immunologic: No itchy eyes, throat swelling or tongue swelling Adal/Lymp Hematologic/Lymphatic: No easy bleeding, easy bruising or enlarged lymph nodes Exam Const General: cooperative and comfortable Nutritional Appearance: average body habitus and well nourished HENMT Head: normal to inspection Ears: hearing grossly normal bilaterally Nose: external nose normal Face and sinus: normal facial exam Mouth: oral mucosae normal Throat: posterior oropharynx normal Eyes General: appearance normal, both eyes and all related structures Neck Neck: normal visual inspection Chest Chest palpation & inspection: normal inspection of the chest and normal palpation of entire chest wall Resp Effort & Inspection: normal respiratory effort Auscultation: Bilateral: Clear to Auscultation Cardio Palpation: normal PMI Rate: regular rate Rhythm: regular rhythm GI Inspection: normal to inspection Auscultation: normal bowel sounds Percussion: normal to percussion Palpation: no hepatosplenomegaly Skin General: no rashes or lesions noted Neuro General: patient alert Extrem General: normal to inspection Psych Affect: normal affect Quality Reporting Tobacco Screening ([facility] 138) Smoking Status: Former smoker Assessment and Plan Assessment and Plan (1) Abnormal CT scan: Status: Acute Plan - Dr. Nam Friend, DO: The differential diagnosis does include Crohn's disease, Ischemic colitis, infectious colitis. I will give her prednisone, tramadol and dicyclomine. We will also get stool studies for C. difficile, enteric pathogens, fecal lactoferrin. We will schedule her for an upper lower endoscopy to evaluate her GI tract. If her symptoms get worse over the weekend she is to give me a call. Hopefully this will make her feel better if not we will have to admit her treated with IV therapy and perform endoscopy DEBORAH. This consultation took approximately 30 minutes. Plan Details Other Medications: New: prednisone 40 mg (2 x 20 mg) PO DAILY 60 tabs 2RF tramadol 50 mg PO Q6H PRN 30 tabs 0RF pain dicyclomine 10 mg PO TID 90 caps 0RF This is an updated H&P from when the patient was seen in office. Nothing is changed from when she was seen in the office.
--- NOTE | 2021-07-13 06:50 | OP.EGD_ITS ---
Patient Name: Mónica James Procedure Date: 07/13/2021 6:10 AM Date of : 1970 Age: 50 Procedure: Upper GI endoscopy Indications: Epigastric abdominal pain Providers: Cyril Morfin DO Medicines: See the Anesthesia note for documentation of the administered medications Patient Profile: This is a 50 year old female. Refer to note in patient chart for documentation of history and physical. Patient has symptoms of acute abdominal cramping and chronic abdominal distention. Complications: No immediate complications. Procedure: Pre-Anesthesia Assessment: - Prior to the procedure, a History and Physical was performed, and patient medications and allergies were reviewed. The risks and benefits of the procedure and the sedation options and risks were discussed with the patient. All questions were answered and informed consent was obtained. Patient identification and proposed procedure were verified by the physician in the pre-procedure area. Mental Status Examination: alert and oriented. Airway Examination: normal oropharyngeal airway and neck mobility. Respiratory Examination: clear to auscultation. CV Examination: normal. Prophylactic Antibiotics: The patient does not require prophylactic antibiotics. Prior Anticoagulants: The patient has taken no previous anticoagulant or antiplatelet agents. ASA Grade Assessment: II - A patient with mild systemic disease. After reviewing the risks and benefits, the patient was deemed in satisfactory condition to undergo the procedure. The anesthesia plan was to use moderate sedation / analgesia (conscious sedation). Immediately prior to administration of medications, the patient was re-assessed for adequacy to receive sedatives. The heart rate, respiratory rate, oxygen saturations, blood pressure, adequacy of pulmonary ventilation, and response to care were monitored throughout the procedure. The physical status of the patient was re-assessed after the procedure. After obtaining informed consent, the endoscope was passed under direct vision. Throughout the procedure, the patient's blood pressure, pulse, and oxygen saturations were monitored continuously. The Endoscope was introduced through the mouth, and advanced to the second part of duodenum. The upper GI endoscopy was accomplished without difficulty. The patient tolerated the procedure well. Moderate Sedation: Moderate (conscious) sedation was personally administered by an anesthesia professional. The following parameters were monitored: oxygen saturation, heart rate, blood pressure, and response to care. Total physician intraservice time was 15 minutes. Scope In: 6:38:48 AM Scope Out: 6:45:18 AM Total Procedure Duration Time 0 hours 6 minutes 30 seconds Findings: LA Grade A (one or more mucosal breaks less than 5 mm, not extending between tops of 2 mucosal folds) esophagitis with no bleeding was found 34 to 35 cm from the incisors. Biopsies were taken with a cold forceps for histology. Verification of patient identification for the specimen was done. Estimated blood loss was minimal. A small hiatal hernia was present. Patchy mildly erythematous mucosa without bleeding was found in the gastric antrum. Estimated blood loss was minimal. Biopsies were taken with a cold forceps for histology. Verification of patient identification for the specimen was done. Estimated blood loss was minimal. Patchy mildly erythematous mucosa without active bleeding and with no stigmata of bleeding was found in the first portion of the duodenum. Biopsies were taken with a cold forceps for histology. Verification of patient identification for the specimen was done. Estimated blood loss was minimal. Impression: - LA Grade A reflux esophagitis. Biopsied. - Small hiatal hernia. - Erythematous mucosa in the antrum. Biopsied. - Erythematous duodenopathy. Biopsied. Recommendation: - Discharge patient to home. - Resume previous diet. - Continue present medications. - Await pathology results. - Repeat upper endoscopy in 1 year for surveillance based on pathology results. - Return to GI office in 3 weeks. Procedure Code(s): --- Professional --- 86332, Esophagogastroduodenoscopy, flexible, transoral; with biopsy, single or multiple Diagnosis Code(s): --- Professional --- K21.0, Gastro-esophageal reflux disease with esophagitis K44.9, Diaphragmatic hernia without obstruction or gangrene K31.89, Other diseases of stomach and duodenum R10.13, Epigastric pain CPT copyright 2017 [employer]. All rights reserved. The codes documented in this report are preliminary and upon blast hole driller review may be revised to meet current compliance requirements. Cyril Morfin DO 07/13/2021 6:49:40 AM This report has been signed electronically. Number of Addenda: 1 Note Initiated On: 07/13/2021 6:10 AM Addendum Number: 1 Addendum Date: 05/12/2022 6:08:05 AM MAC was used instead of moderate sedation for this patient. Cyril Morfin DO 05/12/2022 6:08:10 AM This report has been signed electronically.
--- NOTE | 2021-07-13 06:50 | OP.CCLET_ITS ---
[facility] for Mónica Delaney [facility] This procedure was performed on Tuesday, July 13, 2021. My impressions and recommendations are as follows: Impressions : - LA Grade A reflux esophagitis. Biopsied. - Small hiatal hernia. - Erythematous mucosa in the antrum. Biopsied. - Erythematous duodenopathy. Biopsied. Recommendations : - Discharge patient to home. - Resume previous diet. - Continue present medications. - Await pathology results. - Repeat upper endoscopy in 1 year for surveillance based on pathology results. - Return to GI office in 3 weeks. My findings are described in the full procedure note, which is enclosed. If I can be of further assistance, please feel free to contact me at . Sincerely, Cyril Friend, 07/13/2021 6:49:40 AM This report has been signed electronically.
[2021-07-13 07:15] VITALS: BP 129/80; BP 147/54; PULSE 97; RESP 16; TEMP 36; O2SAT 98
--- NOTE | 2021-07-13 07:19 | OP.COLON_ITS ---
Patient Name: Mónica James Procedure Date: 07/13/2021 6:46 AM Date of : 1970 Age: 50 Procedure: Colonoscopy Indications: Abdominal pain in the right upper quadrant, Chronic diarrhea Providers: Cyril Morfin DO Medicines: See the Anesthesia note for documentation of the administered medications Patient Profile: This is a 50 year old female. Refer to note in patient chart for documentation of history and physical. Patient has symptoms of acute abdominal cramping and chronic abdominal distention. Last Colonoscopy: none. The patient's first colonoscopy is today. Complications: No immediate complications. Procedure: Pre-Anesthesia Assessment: - Prior to the procedure, a History and Physical was performed, and patient medications and allergies were reviewed. The risks and benefits of the procedure and the sedation options and risks were discussed with the patient. All questions were answered and informed consent was obtained. Patient identification and proposed procedure were verified by the physician in the pre-procedure area. Mental Status Examination: alert and oriented. Airway Examination: normal oropharyngeal airway and neck mobility. Respiratory Examination: clear to auscultation. CV Examination: normal. Prophylactic Antibiotics: The patient does not require prophylactic antibiotics. Prior Anticoagulants: The patient has taken no previous anticoagulant or antiplatelet agents. ASA Grade Assessment: II - A patient with mild systemic disease. After reviewing the risks and benefits, the patient was deemed in satisfactory condition to undergo the procedure. The anesthesia plan was to use moderate sedation / analgesia (conscious sedation). Immediately prior to administration of medications, the patient was re-assessed for adequacy to receive sedatives. The heart rate, respiratory rate, oxygen saturations, blood pressure, adequacy of pulmonary ventilation, and response to care were monitored throughout the procedure. The physical status of the patient was re-assessed after the procedure. After I obtained informed consent, the scope was passed under direct vision. Throughout the procedure, the patient's blood pressure, pulse, and oxygen saturations were monitored continuously. The Colonoscope was introduced through the anus and advanced to the cecum, identified by appendiceal orifice and ileocecal valve. The colonoscopy was performed without difficulty. The patient tolerated the procedure well. The quality of the bowel preparation was good. Moderate Sedation: Moderate (conscious) sedation was administered by the endoscopy nurse and supervised by the endoscopist. The patient's oxygen saturation, heart rate, blood pressure and response to care were monitored. Total physician intraservice time was 15 minutes. Scope In: 6:52:04 AM Scope Withdrawal Time 0 hours 6 minutes 42 seconds Scope Out: 7:10:22 AM Total Procedure Duration Time 0 hours 18 minutes 18 seconds Findings: Hemorrhoids were found on perianal exam. No additional abnormalities were found on retroflexion. A few small-mouthed diverticula were found in the sigmoid colon. An area of moderately congested mucosa was found in the sigmoid colon. This was biopsied with a cold forceps for histology. Verification of patient identification for the specimen was done. Estimated blood loss was minimal. Inflammation characterized by altered vascularity, congestion (edema), erythema, granularity and confluent ulcerations was found in a continuous and circumferential pattern from the hepatic flexure to the cecum. This was severe, and when compared to previous examinations, the findings are new. Biopsies were taken with a cold forceps for histology. Verification of patient identification for the specimen was done. Estimated blood loss was minimal. Impression: - Hemorrhoids found on perianal exam. - Diverticulosis in the sigmoid colon. - Congested mucosa in the sigmoid colon. Biopsied. - Colitis. Inflammation was found from the hepatic flexure to the cecum. This was severe, new compared to previous examinations. Biopsied. Recommendation: - Discharge patient to home. - Use prednisone 60 mg PO once a day daily. - Flagyl (metronidazole) 500 mg IV loading dose followed by 500 mg IV q 6 hr for 2 weeks followed by Cipro (ciprofloxacin) 500 mg PO BID for 2 weeks. - Repeat colonoscopy in 3 years for surveillance based on pathology results. - Return to GI office in 3 weeks. - Continue present medications. Procedure Code(s): --- Professional --- 76966, Colonoscopy, flexible; with biopsy, single or multiple G0500, Moderate sedation services provided by the same physician or other qualified health care mgr performing a gastrointestinal endoscopic service that sedation supports, requiring the presence of an independent trained observer to assist in the monitoring of the patient's level of consciousness and physiological status; initial 15 minutes of intra-service time; patient age 5 years or older (additional time may be reported with 41256, as appropriate) Diagnosis Code(s): --- Professional --- K64.9, Unspecified hemorrhoids K63.89, Other specified diseases of intestine K52.9, Noninfective gastroenteritis and colitis, unspecified R10.11, Right upper quadrant pain K57.30, Diverticulosis of large intestine without perforation or abscess without bleeding CPT copyright 2017 [employer]. All rights reserved. The codes documented in this report are preliminary and upon railroad dining car steward/stewardess review may be revised to meet current compliance requirements. Cyril Morfin DO 07/13/2021 7:18:44 AM This report has been signed electronically. Number of Addenda: 1 Note Initiated On: 07/13/2021 6:46 AM Addendum Number: 1 Addendum Date: 05/12/2022 6:08:20 AM MAC was used instead of moderate sedation for this patient. Cyril Morfin DO 05/12/2022 6:08:27 AM This report has been signed electronically.
--- NOTE | 2021-07-13 07:19 | OP.CCLET_ITS ---
[facility] procedure for Mónica Delaney [facility] [address] This procedure was performed on Tuesday, July 13, 2021. My impressions and recommendations are as follows: Impressions : - Hemorrhoids found on perianal exam. - Diverticulosis in the sigmoid colon. - Congested mucosa in the sigmoid colon. Biopsied. - Colitis. Inflammation was found from the hepatic flexure to the cecum. This was severe, new compared to previous examinations. Biopsied. Recommendations : - Discharge patient to home. - Use prednisone 60 mg PO once a day daily. - Flagyl (metronidazole) 500 mg IV loading dose followed by 500 mg IV q 6 hr for 2 weeks followed by Cipro (ciprofloxacin) 500 mg PO BID for 2 weeks. - Repeat colonoscopy in 3 years for surveillance based on pathology results. - Return to GI office in 3 weeks. - Continue present medications. My findings are described in the full procedure note, which is enclosed. If I can be of further assistance, please feel free to contact me at . Sincerely, Cyril Friend, 07/13/2021 7:18:44 AM This report has been signed electronically.
[2021-07-13 07:20] VITALS: BP 132/76; BP 147/54; PULSE 88; RESP 18; O2SAT 97
[2021-07-13 07:25] VITALS: BP 139/79; BP 147/54; PULSE 87; RESP 18; O2SAT 97
[2021-07-13 07:30] VITALS: BP 143/81; BP 147/54; PULSE 91; RESP 18; TEMP 36; O2SAT 94
[2021-07-13] MEDS: Ciprofloxacin 400 MG/200 ML BAG 200 MG IV (07:45)
[2021-07-13 08:06] LABS: Erythrocyte Sedimentation Rate 19 mm/hr (0-30)
[2021-07-13 08:17] LABS: ALB/GLOB Ratio 0.6 RATIO (0.9-2.4); AST(SGOT) 26 U/L (15-37); Alanine Aminotransfer ALT/SGPT 27 U/L (13-56); Albumin, Serum 2.3 g/dL (3.2-5.0); Alkaline Phosphatase 55 U/L (45-117); Anion Gap 6 (5-15); BUN 9 mg/dL (7-18); BUN/Creat Ratio 11.4 RATIO (10-20); Calcium,Total 8.4 mg/dL (8.5-10.1); Chloride 101 mmol/L (98-107); Creatinine, Serum 0.79 mg/dL (0.55-1.02); EST Glomerular Filtration Rate 82 mL/min (>60); Est Glom Filt Rate - Afr Amer 99 mL/min (>60); Estimated Creatinine Clearance 73.57 ml/min; Globulin 4.1 g/dL (2.2-4.2); Glucose 91 mg/dL (74-106); Potassium 3.5 mmol/L (3.5-5.1); Protein, Total 6.4 g/dL (6.4-8.2); Sodium Level 135 mmol/L (136-145)
[2021-07-13 08:33] LABS: Lactic Acid 1.4 mmol/L (0.4-1.9)
[2021-07-13] MEDS: MethylPREDNISolone 125 MG/2 ML Vial IV ×2 (09:24)
[2021-07-13 09:28] LABS: Absolute Lymphocyte Count 0.73 X10^3/uL (0.83-4.51); Absolute Neutrophil Count 14.1 X10^3/uL (2.0-7.7); Basophil# 0.04 X10^3/uL; Basophil% 0.2 % (0-1); Eosinophil# 0.11 X10^3/uL; Eosinophils% 0.7 % (0-5); Hematocrit 37.5 % (37-47); Hemoglobin 12.1 g/dL (12.0-15.0); Lymphocyte # 0.73 X10^3/ul (0.83-4.51); Lymphocyte % 4.5 % (19-41); Mean Corp Hgb Conc 32.3 g/dL (32-36); Mean Corpuscular Hgb 27.3 pg (27.0-32.0); Mean Corpuscular Volume 84.7 fL (81-99); Mean Platelet Vol. 10.4 fl (6.2-12.0); Monocyte# 1.23 X10^3/uL; Monocyte% 7.5 % (0-10); NRBC Flagged by Analyzer 0 % (0-5); Neutrophil # 14.12 X10^3/uL (2.7-7.7); Neutrophil % 86.4 % (47-70); Platelet Count 277 K/mm3 (150-450); RBC Distribution Width CV 13.2 % (11.6-14.6); RBC Distribution Width SD 40.9 fl (35.1-43.9); Red Blood Count 4.43 M/mm3 (4.2-5.4); White Blood Count 16.4 K/mm3 (4.4-11.0)
[2021-07-13 10:58] VITALS: BP 147/54; BP 148/70; PULSE 95; RESP 16; TEMP 36.9; O2SAT 95
== END 2021-07-13 11:00 ==
LOC: EN 05:25 → AC 05:26
PROVIDERS: Visit Provider Internal Medicine Gastroenterology
PROC: 0DJD8ZZ Inspection of Lower Intestinal Tract, Via Natural or Artificial Opening Endoscopic (ICD-10-PCS; CPT 45378; principal; 2021-07-13 06:25)
DX: C18.9 Malignant neoplasm of colon, unspecified (principal); K29.50 Unspecified chronic gastritis without bleeding; K21.00 Gastro-esophageal reflux disease with esophagitis, without bleeding; K44.9 Diaphragmatic hernia without obstruction or gangrene; K57.30 Diverticulosis of large intestine without perforation or abscess without bleeding; K64.9 Unspecified hemorrhoids; K52.9 Noninfective gastroenteritis and colitis, unspecified; F32.A Depression, unspecified; E66.01 Morbid (severe) obesity due to excess calories; Z68.41 Body mass index [BMI] 40.0-44.9, adult; G43.909 Migraine, unspecified, not intractable, without status migrainosus; Z78.0 Asymptomatic menopausal state; Z86.718 Personal history of other venous thrombosis and embolism; Z79.899 Other long term (current) drug therapy; Z87.891 Personal history of nicotine dependence
CPT/HCPCS: 43239; 45380; 80053; 83605; 85025; 85652; 86140; 87426; 88305; 88341; 88342; J7120; J0744; J2405

== ENCOUNTER 2021-07-15 05:35 | Emergency (ER) | payer OTHER, SELFPAY ==
[2021-07-15 05:39] VITALS: BP 151/79; PULSE 91; RESP 20; TEMP 36.7; O2SAT 94; BMI 41.3
[2021-07-15 05:44] VITALS: O2SAT 95
--- NOTE | 2021-07-15 06:03 | EDS_ITS ---
HPI History of Present Illness Chief Complaint: Shortness of Breath Informant: patient Onset/Context/Timing Onset: Today Context: Gradual Onset Timing: Continuous Quality: Aching Location: Generalized Worsened by: Vomiting Relieved by: Nothing Narrative Narrative: Patient presents with shortness of breath that began today. Patient states she has been having some abdominal pain for the past month. Patient states she was recently diagnosed with Crohn's disease. Patient states that tonight she was having some diarrhea and then started having some nausea and vomiting. Patient states that she thinks she aspirated while she was vomiting. Patient admits to some subjective chills and sweats. Patient states she has generalized aching across her abdomen. Patient states this is worse with vomiting. Patient denies any hematemesis or coffee-ground emesis. Patient also admits to some diarrhea but denies any melena or hematochezia. Patient denies any dysuria or hematuria. [facility] Medical History Abdominal pain Abnormal CT scan Anxiety and depression Back pain Chronic cough DVT (deep venous thrombosis) Former tobacco use Gastric reflux GERD (gastroesophageal reflux disease) History of steroid therapy Left leg pain Migraine headache Morbid obesity Post-menopausal Shortness of breath on exertion Wears dentures Wears glasses Home Medications buspirone 10 mg PO BID 06/13/21 [History Last Taken 06/11/21] escitalopram oxalate 20 mg PO DAILY 06/13/21 [History Last Taken 06/11/21] hyoscyamine sulfate 0.375 mg PO Q8H PRN 06/13/21 [History Last Taken 06/13/21] pantoprazole 40 mg PO DAILY #30 tab 06/16/21 [Rx Last Taken Unknown] dicyclomine 10 mg capsule 10 mg PO TID #90 cap 07/01/21 [Rx Last Taken Unknown] tramadol 50 mg tablet 50 mg PO Q6H PRN #30 tab 07/01/21 [Rx Last Taken Unknown] metoclopramide HCl 10 mg PO Q6H PRN #20 tab 07/08/21 [Rx Last Taken 07/13/21 03:00] hydrocodone-acetaminophen 5-325mg 5mg-325mg 1 tab PO Q6H PRN 5 Days #20 tab 07/11/21 [Rx Last Taken Unknown] apixaban [Eliquis] 5 mg PO BID 07/12/21 [History Last Taken Unknown] prednisone 40 mg PO DAILY 07/12/21 [History Last Taken Unknown] ciprofloxacin HCl 500 mg tablet 500 mg PO Q12H #14 tab 07/13/21 [Rx Last Taken Unknown] metronidazole 375 mg capsule 500 mg PO Q8H #42 cap 07/13/21 [Rx Last Taken Unknown] prednisone 50 mg tablet 60 mg PO DAILY #90 tab 07/13/21 [Rx Last Taken Unknown] hydrocodone-acetaminophen 1 tab PO Q6H PRN PRN 3 Days #10 tablet 07/15/21 [Rx Last Taken Unknown] ondansetron 4 mg PO Q8H PRN PRN #10 tab 07/15/21 [Rx Last Taken Unknown] Allergy/AdvReac Type Severity Reaction Status Date / Time No Known Allergies Allergy Verified 07/15/21 05:42 Family History Father Diabetes Mother Hypertension Brother Hypertension Surgical History History of cholecystectomy (~06/2021) S/P section S/P rotator cuff repair Social History household members: family Smoking Status: Former smoker how long ago did patient quit smoking: Quit 2 years prior, smoked 1/2 ppd since she was a teenager until quitting. alcohol intake: never substance use type: does not use ROS ROS ED Constitutional Constitutional ED: Reports chills, subjective and sweats; Denies fever(s) Eyes Eyes: Denies blurry vision or change in vision ENT ENT ED: Denies rhinorrhea or sore throat Cardiovascular Cardiovascular: Denies chest pain or palpitations Respiratory/Chest Respiratory/Chest: Reports cough and dyspnea Gastrointestinal Gastrointestinal: Reports abdominal pain, diarrhea, nausea and vomiting; Denies melena Genitourinary Genitourinary ED: Denies dysuria or hematuria Musculoskeletal Musculoskeletal: Reports back pain; Denies neck pain Integumentary Denies abscess or rash Neurologic Neurologic: Denies headache(s) or weakness Allergic/Immunologic Allergic/Immunologic ED: Denies mouth swelling or urticaria EXAM Physical Exam Const Vital Signs: 07/15/21 05:39 07/15/21 05:44 Temperature 98.0 F Temperature Source Oral Pulse Rate 91 Respiratory Rate 20 H Respiratory Effort Short of Breath Respiratory Depth Normal Respiratory Pattern Normal Blood Pressure 151/79 H Blood Pressure Mean 103 Pulse Ox 94 Oxygen Delivery Method Room Air Room Air Positive well nourished, well developed and obese General Appearance ED: well developed Nutritional Appearance: obese HEENT Reports moist mucous membranes Neck supple and no JVD Resp normal respiratory effort and clear to auscultation bilaterally Cardio regular rate, regular rhythm and no murmurs GI normal to inspection, nondistended, normoactive bowel sounds Palpation: soft and tender epigastric, RLQ, LUQ, RUQ, periumbilical and suprapubic; Negative for guarding or rebound tenderness present Extremity normal to inspection General Extremety ED: Negative for edema or tenderness General Extremity: Negative for edema Neuro oriented x3, CN's II-XII intact bilaterally and no sensory deficits noted Sensorium / Orientation: alert Motor Exam: strength 5/5 throughout Psych mental status grossly normal Skin no rashes or lesions noted MDM MDM MDM Narrative Medical decision making narrative: Patient was given IV fluids, morphine, and Zofran. CBC shows a leukocytosis of 16.2. However, the patient is on prednisone. Comprehensive metabolic profile shows a potassium of 3.1. The re mainder was within normal limits. Lipase was normal. Urinalysis shows leukocyte esterase of 500 with 10-25 white blood cells. Urine culture was ordered. Acute abdominal x-rays were obtained. There are 4 views. On my interpretation, there is no acute intra-abdominal process. There is no acute cardiopulmonary process. Radiologist also interpreted the x-rays and agrees. Patient was advised of her findings. Patient was given a prescription for a short course of [place] and Zofran. Patient was instructed to continue her Cipro as prescribed. Patient was advised to follow-up with her primary care physician in 3 to 5 days. 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 Patient understood and was agreeable with the plan. All questions were answered. Lab Data Attestation: I reviewed the patient's lab results. Labs: Laboratory Results - last 24 hr 07/15/21 07/15/21 07/15/21 05:47 05:47 06:10 WBC 16.2 H RBC 4.77 Hgb 12.9 Hct 39.9 MCV 83.6 MCH 27.0 MCHC 32.3 RDW Std Deviation 40.4 RDW Coeff of [place]sen 13.2 Plt Count 270 MPV 10.0 Immature Gran % (Auto) 0.700 Neut % (Auto) 84.5 H Lymph % (Auto) 5.9 L [place] % (Auto) 8.3 Eos % (Auto) 0.5 Baso % (Auto) 0.1 Absolute Neuts (auto) 13.7 H Absolute Lymphs (auto) 0.95 Nucleated RBC % 0 Sodium 139 Potassium 3.1 L Chloride 103 Carbon Dioxide 29.0 Anion Gap 7 BUN 11 Creatinine 0.84 Estim Creat Clear Calc 69.19 Est GFR (MDRD) Af Amer 93 Est GFR (MDRD) Non-Af 76 BUN/Creatinine Ratio 13.2 Glucose 110 H Calcium 8.9 Total Bilirubin 0.30 AST 26 ALT 29 Alkaline Phosphatase 64 Total Protein 6.9 Albumin 2.5 L Globulin 4.4 H Albumin/Globulin Ratio 0.6 L Lipase 326 Urine Color Yellow Urine Clarity Sl. Cloudy Urine pH 6.0 Ur Specific [place] 1.020 Urine Protein 30 H Urine Glucose (UA) Normal Urine Ketones 5 H Urine Occult Blood 10 H Urine Nitrite Negative Urine Bilirubin Negative Urine Urobilinogen 1 H Ur Leukocyte Esterase 500 H Urine RBC 0 SEEN Urine WBC 10-25 SEEN Ur Squamous Epith Cells 0-5 SEEN Uric Acid Crystals 1+ Urine Bacteria 0 SEEN Urine Mucus 2+ Radiography Diagnostic Testing: Clinical Impression(s) from Imaging Studies Acute Abdomen Series 07/15/21 06:25 IMPRESSION: Normal x-ray examination of the chest, abdomen, and pelvis. Electronically Signed: Lydia Cole MD at 7:34 EDT Tel , Service support , Discharge Plan Triage Chief Complaint: Shortness of Breath ED Provider: Kev Barker Dx/Rx/DC Orders Clinical Impression: Urinary tract infection, Abdominal pain, Hx of Crohn's disease Instructions: ED Abdominal Pain Unkn Cause Fem, ED Crohn's Disease, ED CYSTITIS Female Adult Prescriptions: New hydrocodone-acetaminophen [hydrocodone-acetaminophen] 1 TABLET tablet 1 tab PO Q6H PRN PRN (Reason: Pain) 3 Days Qty: 10 RF: 0 ondansetron [ondansetron] 4 MG tablet 4 mg PO Q8H PRN PRN (Reason: Nausea) Qty: 10 RF: 0 No Action tramadol 50 mg tablet 50 mg PO Q6H PRN (Reason: pain) Qty: 30 RF: 0 dicyclomine 10 mg capsule 10 mg PO TID Qty: 90 RF: 0 hyoscyamine sulfate 0.375 mg tablet extended release 12 hr 0.375 mg PO Q8H PRN (Reason: Spasms) RF: 0 buspirone 10 mg tablet 10 mg PO BID RF: 0 escitalopram oxalate 20 mg tablet 20 mg PO DAILY RF: 0 pantoprazole 40 mg tablet,delayed release (DR/EC) 40 mg PO DAILY Qty: 30 RF: 3 Eliquis 5 mg Tablet 5 mg PO BID RF: 0 prednisone 20 mg tablet 40 mg PO DAILY RF: 0 metoclopramide HCl [metoclopramide HCl] 10 MG tablet 10 mg PO Q6H PRN (Reason: nausea and vomiting) Qty: 20 RF: 0 hydrocodone-acetaminophen 5-325 mg tablet 1 tab PO Q6H PRN (Reason: pain) 5 Days Qty: 20 RF: 0 ciprofloxacin HCl 500 mg tablet 500 mg PO Q12H Qty: 14 RF: 0 prednisone 50 mg tablet 60 mg PO DAILY Qty: 90 RF: 0 metronidazole [Flagyl] 375 mg capsule 500 mg PO Q8H Qty: 42 RF: 0 Primary Care Provider: Alysha Amaya Referrals: Friend,DO Cyril [STAFF PHYSICIAN] - Keep Radha appointment Alysha Amaya, RADIO STATION MANAGER-C [Primary Care Provider] - 3-5 Days Disposition Disposition: Home, Self Care
[2021-07-15 06:06] LABS: Absolute Lymphocyte Count 0.95 X10^3/uL (0.83-4.51); Absolute Neutrophil Count 13.7 X10^3/uL (2.0-7.7); Basophil# 0.01 X10^3/uL; Basophil% 0.1 % (0-1); Eosinophil# 0.08 X10^3/uL; Eosinophils% 0.5 % (0-5); Hematocrit 39.9 % (37-47); Hemoglobin 12.9 g/dL (12.0-15.0); Lymphocyte # 0.95 X10^3/ul (0.83-4.51); Lymphocyte % 5.9 % (19-41); Mean Corp Hgb Conc 32.3 g/dL (32-36); Mean Corpuscular Volume 83.6 fL (81-99); Monocyte# 1.34 X10^3/uL; Monocyte% 8.3 % (0-10); NRBC Flagged by Analyzer 0 % (0-5); Neutrophil # 13.73 X10^3/uL (2.7-7.7); Neutrophil % 84.5 % (47-70); Platelet Count 270 K/mm3 (150-450); RBC Distribution Width CV 13.2 % (11.6-14.6); RBC Distribution Width SD 40.4 fl (35.1-43.9); Red Blood Count 4.77 M/mm3 (4.2-5.4); White Blood Count 16.2 K/mm3 (4.4-11.0)
[2021-07-15] MEDS: Ondansetron 4 MG/2 ML Vial IV (06:11)
[2021-07-15] MEDS: Morphine 4 MG/ML Syringe IV (06:11)
[2021-07-15] MEDS: 0.9% Normal Saline 1,000 ML 1000 ML IV (06:12)
[2021-07-15 06:21] LABS: Bacteria 0 SEEN /hpf (None Seen); Red Blood Cells-Urine 0 SEEN /hpf (0-5)
[2021-07-15 06:21] LABS: ALB/GLOB Ratio 0.6 RATIO (0.9-2.4); AST(SGOT) 26 U/L (15-37); Alanine Aminotransfer ALT/SGPT 29 U/L (13-56); Albumin, Serum 2.5 g/dL (3.2-5.0); Alkaline Phosphatase 64 U/L (45-117); Anion Gap 7 (5-15); BUN 11 mg/dL (7-18); BUN/Creat Ratio 13.2 RATIO (10-20); Calcium,Total 8.9 mg/dL (8.5-10.1); Chloride 103 mmol/L (98-107); Creatinine, Serum 0.84 mg/dL (0.55-1.02); EST Glomerular Filtration Rate 76 mL/min (>60); Est Glom Filt Rate - Afr Amer 93 mL/min (>60); Estimated Creatinine Clearance 69.19 ml/min; Globulin 4.4 g/dL (2.2-4.2); Glucose 110 mg/dL (74-106); Lipase 326 U/L (73-393); Potassium 3.1 mmol/L (3.5-5.1); Protein, Total 6.9 g/dL (6.4-8.2); Sodium Level 139 mmol/L (136-145)
[2021-07-15 06:22] LABS: Color, Urine Yellow (Yellow); Glucose, Dipstick Normal (Normal); Ketone-Dipstick 5 mg/dl (Negative); Leukocyte Esterase-Dipstick 500 /ul (Negative); Nitrite-Dipstick Negative (Negative); Occult Blood-Urine 10 /ul (Negative); Protein-Dipstick 30 mg/dl (Negative); Urine Bilirubin Dipstick Negative (Negative); Urine Clarity Sl. Cloudy (Clear); Urine Urobilinogen 1 mg/dl (Normal)
--- NOTE | 2021-07-15 06:25 | RAD_ITS ---
STUDY: X-RAY - ACUTE ABDOMINAL SERIES REASON FOR EXAM: Female, 50 years old. Pain TECHNIQUE: Single view of the chest. Supine, view(s) of the abdomen were obtained. COMPARISON: None. FINDINGS: The lungs are underexpanded. Subsegmental atelectases in the left lung base. Normal size heart. Normal mediastinum and parisa. Normal visualized pulmonary arteries. Normal visualized aortic arch and descending thoracic aorta. There is a non-specific bowel gas pattern. The soft tissue structures of the abdomen and pelvis are unremarkable. Normal visualized osseous structures. RAD/Acute Abdomen Inc Chest IMPRESSION: Normal x-ray examination of the chest, abdomen, and pelvis. Electronically Signed: Lydia Cole MD at 7:34 EDT Tel , Service support ,
[2021-07-15 06:35] LABS: Mucous, Urine 2+ /hpf (<or=2+); White Blood Cells 10-25 SEEN /hpf (0-5)
[2021-07-15 06:44] LABS: Squamous Epithelial Cells - UA 0-5 SEEN /hpf (5-10); Uric Acid Crystals Ur 1+ /hpf (<or=1+)
[2021-07-15] MEDS: Potassium Chloride Oral Tablet 20 MEQ 40 MEQ PO (07:26)
== END 2021-07-15 07:56 | disposition home or self-care (01) ==
PROVIDERS: Emergency Provider Emergency Medicine; PCP Nurse Practitioner Adult Health
DX: N39.0 Urinary tract infection, site not specified (principal); K50.90 Crohn's disease, unspecified, without complications; E66.01 Morbid (severe) obesity due to excess calories; Z68.41 Body mass index [BMI] 40.0-44.9, adult; F32.A Depression, unspecified; F41.9 Anxiety disorder, unspecified; K21.9 Gastro-esophageal reflux disease without esophagitis; G43.909 Migraine, unspecified, not intractable, without status migrainosus; Z78.0 Asymptomatic menopausal state; Z87.440 Personal history of urinary (tract) infections; Z86.718 Personal history of other venous thrombosis and embolism; Z79.01 Long term (current) use of anticoagulants; Z79.899 Other long term (current) drug therapy; Z87.891 Personal history of nicotine dependence
CPT/HCPCS: 74022; 80053; 81001; 83690; 85025; 96361; 96374; 96375; 99285; J7030; J2405

== ENCOUNTER 2021-07-17 18:26 | Emergency (ER) | payer OTHER, SELFPAY ==
[2021-07-17 18:27] VITALS: BP 147/97; PULSE 109; RESP 18; TEMP 36.7; O2SAT 99; BMI 42.0
[2021-07-17 18:59] LABS: Absolute Lymphocyte Count 0.74 X10^3/uL (0.83-4.51); Absolute Neutrophil Count 19.1 X10^3/uL (2.0-7.7); Basophil# 0.03 X10^3/uL; Basophil% 0.1 % (0-1); Hematocrit 41.4 % (37-47); Hemoglobin 13.4 g/dL (12.0-15.0); Lymphocyte # 0.74 X10^3/ul (0.83-4.51); Lymphocyte % 3.4 % (19-41); Mean Corp Hgb Conc 32.4 g/dL (32-36); Mean Corpuscular Hgb 27.1 pg (27.0-32.0); Mean Corpuscular Volume 83.6 fL (81-99); Mean Platelet Vol. 10.3 fl (6.2-12.0); Monocyte# 1.45 X10^3/uL; Monocyte% 6.8 % (0-10); NRBC Flagged by Analyzer 0 % (0-5); Neutrophil # 19.11 X10^3/uL (2.7-7.7); POSITIVE COUNT YES; Platelet Count 302 K/mm3 (150-450); RBC Distribution Width CV 13.4 % (11.6-14.6); RBC Distribution Width SD 40.8 fl (35.1-43.9); Red Blood Count 4.95 M/mm3 (4.2-5.4); White Blood Count 21.5 K/mm3 (4.4-11.0)
[2021-07-17 19:05] LABS: Differential Indicated SCAN CRITERIA MET
[2021-07-17 19:16] LABS: ALB/GLOB Ratio 0.6 RATIO (0.9-2.4); AST(SGOT) 32 U/L (15-37); Alanine Aminotransfer ALT/SGPT 33 U/L (13-56); Albumin, Serum 2.7 g/dL (3.2-5.0); Alkaline Phosphatase 70 U/L (45-117); Anion Gap 8 (5-15); BUN 10 mg/dL (7-18); BUN/Creat Ratio 10.9 RATIO (10-20); Calcium,Total 9.1 mg/dL (8.5-10.1); Chloride 104 mmol/L (98-107); Creatinine, Serum 0.92 mg/dL (0.55-1.02); EST Glomerular Filtration Rate 69 mL/min (>60); Est Glom Filt Rate - Afr Amer 83 mL/min (>60); Estimated Creatinine Clearance 63.17 ml/min; Globulin 4.4 g/dL (2.2-4.2); Glucose 111 mg/dL (74-106); Lipase 140 U/L (73-393); Potassium 4.3 mmol/L (3.5-5.1); Protein, Total 7.1 g/dL (6.4-8.2); Sodium Level 137 mmol/L (136-145)
[2021-07-17] MEDS: Morphine 4 MG/ML Syringe IV ×2 (19:28→22:36)
[2021-07-17] MEDS: 0.9% Normal Saline 1,000 ML 1000 ML IV (19:28)
[2021-07-17] MEDS: Ondansetron 4 MG/2 ML Vial IV (19:28)
--- NOTE | 2021-07-17 19:34 | ED.RN ---
20G Diffusix IV placed right forearm by Av Lin.
[2021-07-17 19:43] LABS: Differential Comment SCANNED
--- NOTE | 2021-07-17 19:49 | EDS_ITS ---
HPI HPI - GI History of Present Illness Chief Complaint: Abd Pain Informant: patient Abdominal Pain/Flank Pain Onset: Today Context: Gradual Onset Timing: Continuous Quality: Aching Location: RLQ and LLQ Worsened by: - (Laying down) Relieved by: Nothing Nausea/Vomiting/Emesis GI Symptom: Positive for Nausea and Vomiting Quality: Negative for Coffee ground and Hematemesis Diarrhea/Melena/Hematochezia GI Symptom: Negative for Diarrhea, Melena and Hematochezia Associated Symptoms Associated Symptoms: Negative for Dysuria, Frequency and Hematuria Narrative Narrative: Patient presents with abdominal pain that became worse today. Patient was recently diagnosed with Crohn's disease. Patient has been seen here in the emergency department for similar pain. Patient describes her pain as aching. Patient states it is over the lower abdomen. Patient states it gets worse whenever she lays down. Patient states nothing seems to help with it. Patient admits to some nausea and vomiting. Patient denies any diarrhea, melena, or hematochezia. Patient denies any coffee-ground emesis or hematemesis. Patient denies any dysuria or hematuria. Patient is currently on Cipro and Flagyl. [facility] Medical History Abdominal pain Abnormal CT scan Anxiety and depression Back pain Chronic cough DVT (deep venous thrombosis) Former tobacco use Gastric reflux GERD (gastroesophageal reflux disease) History of steroid therapy Left leg pain Migraine headache Morbid obesity Post-menopausal Shortness of breath on exertion Wears dentures Wears glasses Home Medications buspirone 10 mg PO BID 06/13/21 [History Last Taken 06/11/21] escitalopram oxalate 20 mg PO DAILY 06/13/21 [History Last Taken 06/11/21] hyoscyamine sulfate 0.375 mg PO Q8H PRN 06/13/21 [History Last Taken 06/13/21] pantoprazole 40 mg PO DAILY #30 tab 06/16/21 [Rx Last Taken Unknown] dicyclomine 10 mg capsule 10 mg PO TID #90 cap 07/01/21 [Rx Last Taken Unknown] tramadol 50 mg tablet 50 mg PO Q6H PRN #30 tab 07/01/21 [Rx Last Taken Unknown] metoclopramide HCl 10 mg PO Q6H PRN #20 tab 07/08/21 [Rx Last Taken 07/13/21 03:00] apixaban [Eliquis] 5 mg PO BID 07/12/21 [History Last Taken Unknown] prednisone 40 mg PO DAILY 07/12/21 [History Last Taken Unknown] ciprofloxacin HCl 500 mg tablet 500 mg PO Q12H #14 tab 07/13/21 [Rx Last Taken Unknown] metronidazole 375 mg capsule 500 mg PO Q8H #42 cap 07/13/21 [Rx Last Taken Unknown] ondansetron 4 mg PO Q8H PRN PRN #10 tab 07/15/21 [Rx Last Taken Unknown] amoxicillin-pot clavulanate 875 mg PO Q12H #20 tablet 07/18/21 [Rx Last Taken Unknown] hydrocodone-acetaminophen 1 tab PO Q6H PRN PRN 3 Days #10 tablet 07/18/21 [Rx Last Taken Unknown] ondansetron 4 mg PO Q8H PRN PRN #10 tab 07/18/21 [Rx Last Taken Unknown] Allergy/AdvReac Type Severity Reaction Status Date / Time No Known Allergies Allergy Verified 07/17/21 18:29 Family History Father Diabetes Mother Hypertension Brother Hypertension Surgical History History of cholecystectomy (~06/2021) S/P section S/P rotator cuff repair Social History household members: family Smoking Status: Former smoker how long ago did patient quit smoking: Quit 2 years prior, smoked 1/2 ppd since she was a teenager until quitting. alcohol intake: never substance use type: does not use ROS ROS ED Constitutional Constitutional ED: Denies chills or fever(s) Eyes Eyes: Denies blurry vision or change in vision ENT ENT ED: Denies rhinorrhea or sore throat Cardiovascular Cardiovascular: Denies chest pain or palpitations Respiratory/Chest Respiratory/Chest: Denies cough or dyspnea Gastrointestinal Gastrointestinal: Reports abdominal pain, nausea and vomiting Genitourinary Genitourinary ED: Denies dysuria or hematuria Musculoskeletal Musculoskeletal: Denies back pain or neck pain Integumentary Denies abscess or rash Neurologic Neurologic: Denies headache(s) or weakness Allergic/Immunologic Allergic/Immunologic ED: Denies mouth swelling or urticaria EXAM Physical Exam Const Vital Signs: 07/17/21 18:27 07/17/21 22:38 07/17/21 22:47 Temperature 98.1 F Temperature Source Oral Pulse Rate 109 H 104 H 92 Respiratory Rate 18 18 16 Blood Pressure 147/97 H 150/90 H Blood Pressure Mean 113 110 Pulse Ox 99 94 97 Oxygen Delivery Method Room Air 07/18/21 00:53 Temperature Temperature Source Pulse Rate Respiratory Rate 16 Blood Pressure Blood Pressure Mean Pulse Ox Oxygen Delivery Method Positive well nourished, well developed and obese General Appearance ED: well developed Nutritional Appearance: obese HEENT Reports moist mucous membranes Neck supple and no JVD Resp normal respiratory effort and clear to auscultation bilaterally Cardio regular rate and regular rhythm GI non-distended Inspection: Negative for abdominal distention Palpation: soft and tender LLQ, RLQ and suprapubic; Negative for guarding or rebound tenderness present Neuro CN's II-XII intact bilaterally, moves all extremities and no sensory deficits noted Sensorium / Orientation: alert, oriented to person, oriented to place and oriented to time Motor Exam: strength 5/5 throughout Psych mental status grossly normal Skin Rashes: no rashes MDM MDM MDM Narrative Medical decision making narrative: Patient was given IV fluids, morphine, and Zofran here. Patient was also complaining of some reflux type symptoms. Patient was given a dose of Protonix here. CBC shows a leukocytosis of 21.5. This was increased from previous result 2 days ago. Comprehensive metabolic profile and lipase were essentially within normal limits. Urinalysis does not show any evidence of urinary tract infection. CT scan of the abdomen pelvis was obtained. There is abnormal appearance of the peripheral mesentery and scattered mesenteric lymph nodes. These could be infectious or inflammatory or neoplastic etiology. Peritoneal carcinomatosis could have this appearance as well. There is also worsening of ascites and development of bilateral pleural effusions. There is terminal ileitis and mild cecal wall thickening. This was interpreted by the radiologist and reviewed by myself. Patient was given a repeat dose of morphine. Patient is resting comfortably. Case was discussed with the hospitalist. He does not feel the patient would benefit from inpatient treatment, since the patient is on steroids and already on antibiotics,. Patient states that she does not feel the Cipro and Flagyl are helping. Patient was instructed to stop the Cipro and Flagyl. Patient was given a prescription for Augmentin. Patient was instructed to continue her prednisone as prescribed. Patient was instructed to follow-up with her fleet operations manager in 2 to 3 days. Patient understands and is agreeable with the plan. All questions were answered. Lab Data Attestation: I reviewed the patient's lab results. Labs: Laboratory Results - last 24 hr 07/17/21 07/17/21 07/17/21 18:44 18:44 20:25 WBC 21.5 H RBC 4.95 Hgb 13.4 Hct 41.4 MCV 83.6 MCH 27.1 MCHC 32.4 RDW Std Deviation 40.8 RDW Coeff of [place] 13.4 Plt Count 302 MPV 10.3 Immature Gran % (Auto) 0.700 Neut % (Auto) 89.0 H Lymph % (Auto) 3.4 L [place] % (Auto) 6.8 Eos % (Auto) 0.0 Baso % (Auto) 0.1 Absolute Neuts (auto) 19.1 H Absolute Lymphs (auto) 0.74 L Nucleated RBC % 0 Differential Comment SCANNED Sodium 137 Potassium 4.3 Chloride 104 Carbon Dioxide 25.0 Anion Gap 8 BUN 10 Creatinine 0.92 Estim Creat Clear Calc 63.17 Est GFR (MDRD) Af Amer 83 Est GFR (MDRD) Non-Af 69 BUN/Creatinine Ratio 10.9 Glucose 111 H Calcium 9.1 Total Bilirubin 0.20 AST 32 ALT 33 Alkaline Phosphatase 70 Total Protein 7.1 Albumin 2.7 L Globulin 4.4 H Albumin/Globulin Ratio 0.6 L Lipase 140 Urine Color Yellow Urine Clarity Clear Urine pH 7.0 Ur Specific [place] 1.015 Urine Protein 30 H Urine Glucose (UA) Normal Urine Ketones 15 H Urine Occult Blood Negative Urine Nitrite Negative Urine Bilirubin Negative Urine Urobilinogen Normal Ur Leukocyte Esterase 100 H Urine RBC 0-5 SEEN Urine WBC 0-5 SEEN Ur Squamous Epith Cells 0-5 SEEN Amorphous Sediment 1+ Urine Bacteria 0 SEEN Hyaline Casts 0-5 SEEN Urine Mucus 1+ Radiography Diagnostic Testing: Clinical Impression(s) from Imaging Studies Abdomen/Pelvis CT 07/17/21 21:30 IMPRESSION: Abnormal appearance of the peripheral mesentery and scattered mesenteric prominent lymph nodes represent infectious, inflammatory or neoplastic etiology. Peritoneal carcinomatosis could have this appearance. Tissue diagnosis should be considered. Interval worsening of intra-abdominal ascites and development of bilateral pleural effusions. Hepatic steatosis. Terminal ileitis and mild cecal wall thickening less well exemplified on today''s exam. N.B. : The above Results were Read Back by Earl Mitchell DO to Dr. Perry MD, and understanding confirmed on 07/17/2021 23:31:36 (ET). Electronically Signed: Earl Mitchell DO at 23:48 EST Tel , Service support , ADDENDUM: 07/17/21 4310 IMPRESSION: Abnormal appearance of the peripheral mesentery and scattered mesenteric prominent lymph nodes represent infectious, inflammatory or neoplastic etiology. Peritoneal carcinomatosis could have this appearance. Tissue diagnosis should be considered. Interval worsening of intra-abdominal ascites and development of bilateral pleural effusions. Hepatic steatosis. Terminal ileitis and mild cecal wall thickening less well exemplified on today''s exam. N.B. : The above Results were Read Back by Earl Mitchell DO to Dr. Perry MD, and understanding confirmed on 07/17/2021 23:31:36 (ET). Electronically Signed: Earl Mitchell DO at 23:48 EST Tel , Service support , Discharge Plan Triage Chief Complaint: Abd Pain ED Provider: Kev Barker Dx/Rx/DC Orders Clinical Impression: Abdominal pain, Hx of Crohn's disease Instructions: ED Understanding Colitis, ED Crohn's Disease Prescriptions: New hydrocodone-acetaminophen [hydrocodone-acetaminophen] 1 TABLET tablet 1 tab PO Q6H PRN PRN (Reason: Pain) 3 Days Qty: 10 RF: 0 amoxicillin-pot clavulanate [amoxicillin-pot clavulanate] 875 MG tablet 875 mg PO Q12H Qty: 20 RF: 0 ondansetron [ondansetron] 4 MG tablet 4 mg PO Q8H PRN PRN (Reason: Nausea) Qty: 10 RF: 0 No Action tramadol 50 mg tablet 50 mg PO Q6H PRN (Reason: pain) Qty: 30 RF: 0 dicyclomine 10 mg capsule 10 mg PO TID Qty: 90 RF: 0 hyoscyamine sulfate 0.375 mg tablet extended release 12 hr 0.375 mg PO Q8H PRN (Reason: Spasms) RF: 0 buspirone 10 mg tablet 10 mg PO BID RF: 0 escitalopram oxalate 20 mg tablet 20 mg PO DAILY RF: 0 pantoprazole 40 mg tablet,delayed release (DR/EC) 40 mg PO DAILY Qty: 30 RF: 3 Eliquis 5 mg Tablet 5 mg PO BID RF: 0 prednisone 20 mg tablet 40 mg PO DAILY RF: 0 metoclopramide HCl [metoclopramide HCl] 10 MG tablet 10 mg PO Q6H PRN (Reason: nausea and vomiting) Qty: 20 RF: 0 ondansetron [ondansetron] 4 MG tablet 4 mg PO Q8H PRN PRN (Reason: Nausea) Qty: 10 RF: 0 ciprofloxacin HCl 500 mg tablet 500 mg PO Q12H Qty: 14 RF: 0 metronidazole [Flagyl] 375 mg capsule 500 mg PO Q8H Qty: 42 RF: 0 Primary Care Provider: Alysha Amaya Referrals: Cyril Morfin DO [STAFF PHYSICIAN] - As soon as possible Alysha Amaya, DIRECTOR OF RETAIL OPERATIONS-C [Primary Care Provider] - 3-5 Days Disposition Disposition: Home, Self Care
[2021-07-17 20:42] LABS: Bacteria 0 SEEN /hpf (None Seen)
[2021-07-17 20:47] LABS: Color, Urine Yellow (Yellow); Glucose, Dipstick Normal (Normal); Ketone-Dipstick 15 mg/dl (Negative); Leukocyte Esterase-Dipstick 100 /ul (Negative); Nitrite-Dipstick Negative (Negative); Occult Blood-Urine Negative /ul (Negative); Protein-Dipstick 30 mg/dl (Negative); Specific Gravity, Urine 1.015 (1.002-1.030); Urine Bilirubin Dipstick Negative (Negative); Urine Clarity Clear (Clear); Urine Urobilinogen Normal (Normal)
[2021-07-17 21:07] LABS: Hyaline Cast 0-5 SEEN /lpf (0-5); Mucous, Urine 1+ /hpf (<or=2+); Squamous Epithelial Cells - UA 0-5 SEEN /hpf (5-10)
[2021-07-17 21:09] LABS: Amorphous Sediment 1+; White Blood Cells 0-5 SEEN /hpf (0-5)
[2021-07-17 21:11] LABS: Red Blood Cells-Urine 0-5 SEEN /hpf (0-5)
--- NOTE | 2021-07-17 21:30 | CT_ITS ---
INDICATION: Abdominal pain -- IV PO Contrast EXAMINATION: CT ABDOMEN AND PELVIS WITH CONTRAST - CT Abdomen And Pelvis W/ Contrast Injection TECHNIQUE: Helically acquired images were obtained of the abdomen and pelvis following IV contrast. A radiation dose optimization technique was used for this scan. IV Contrast dosage and agent: 100 cc of [id number] Oral contrast: Dilute GASTROGRAFIN COMPARISON: 06/22/2021 CT abdomen and pelvis FINDINGS: LOWER CHEST: Moderate bilateral pleural effusions. No cardiomegaly or pericardial effusion. LIVER: Diffusely decreased density of the liver suggesting hepatic steatosis. 5 mm hypodensity adjacent to the right hepatic vein, segment 6, unchanged compared to prior exam, too small to comparably characterize. Normal size and contour liver. GALLBLADDER AND BILIARY TREE: Collapse or surgically absent. No intra- or extrahepatic biliary ductal dilation. PANCREAS: No focal cystic or solid mass. SPLEEN: Normal size without focal cystic or solid mass. ADRENAL GLANDS: 2.2 cm left adrenal nodule, 40 [place] units, unchanged compared to prior exam. Unenhanced CT or MRI would be needed for further evaluation. KIDNEYS AND URETERS: Normal renal size and position. No hydronephrosis. PERITONEUM: There is moderate diffuse intra-abdominal ascites. No focal rim-enhancing fluid collection. BOWEL: Terminal ileal and proximal cecal bowel wall thickening again exemplified. More distal colon is collapsed. Small bowel is partially opacified with contrast not reaching the terminal ileum at this time. No evidence of obstruction. No hyperenhancing bowel wall. LYMPH NODES: Scattered mesenteric lymph nodes less than 1 cm diameter are present. VESSELS: Prominent mesenteric vasculature with infiltrative appearance peripheral mesentery concerning for infectious or neoplastic etiology. Abdominal aorta is normal diameter with intimal calcifications noted. There is normal opacification of the portal veins and superior mesenteric artery. URINARY BLADDER: Unremarkable. REPRODUCTIVE ORGANS: Sterilization clips are seen in the right and left hemipelvis. Small uterus. Ovaries not clearly visualized. No adnexal mass lesion. ABDOMINAL WALL: Ill-defined soft tissue density just cephalad to the umbilicus shows mildly increased density suggesting possible enhancement. Appearance is unchanged compared to prior exam. BONES: No lytic or blastic abnormality. CT/Abdomen/Pelvis WITH Contrast IMPRESSION: Abnormal appearance of the peripheral mesentery and scattered mesenteric prominent lymph nodes represent infectious, inflammatory or neoplastic etiology. Peritoneal carcinomatosis could have this appearance. Tissue diagnosis should be considered. Interval worsening of intra-abdominal ascites and development of bilateral pleural effusions. Hepatic steatosis. Terminal ileitis and mild cecal wall thickening less well exemplified on today''s exam. N.B. : The above Results were Read Back by Earl Mitchell DO to Dr. Perry MD, and understanding confirmed on 07/17/2021 23:31:36 (ET). Electronically Signed: Earl Mitchell DO at 23:48 EST Tel , Service support ,
[2021-07-17 22:38] VITALS: PULSE 104; RESP 18; O2SAT 94
[2021-07-17 22:47] VITALS: BP 150/90; PULSE 92; RESP 16; O2SAT 97
[2021-07-18 00:53] VITALS: RESP 16
[2021-07-18] MEDS: Ondansetron 4 MG/2 ML Vial IV (01:15)
[2021-07-18] MEDS: Morphine 4 MG/ML Syringe IV (01:15)
[2021-07-18 01:19] VITALS: BP 140/78; PULSE 88; RESP 16; O2SAT 97
== END 2021-07-18 01:20 | disposition home or self-care (01) ==
PROVIDERS: Emergency Provider Emergency Medicine; PCP Nurse Practitioner Adult Health
DX: R10.30 Lower abdominal pain, unspecified (principal); K50.90 Crohn's disease, unspecified, without complications; E66.01 Morbid (severe) obesity due to excess calories; Z68.41 Body mass index [BMI] 40.0-44.9, adult; F32.A Depression, unspecified; F41.9 Anxiety disorder, unspecified; K21.9 Gastro-esophageal reflux disease without esophagitis; G43.909 Migraine, unspecified, not intractable, without status migrainosus; Z78.0 Asymptomatic menopausal state; Z86.718 Personal history of other venous thrombosis and embolism; Z79.01 Long term (current) use of anticoagulants; Z79.899 Other long term (current) drug therapy; Z87.891 Personal history of nicotine dependence
CPT/HCPCS: 74177; 80053; 81001; 83690; 85025; 96361; 96365; 96374; 96375; 96376; 99282; J7030; Q9967; A4216; J2405; J3490

== ENCOUNTER 2021-07-19 01:17 | Inpatient (IN) | payer OTHER, SELFPAY ==
[2021-07-19] VITALS (8 sets, daily range): BP systolic 132–157; BP diastolic 82–96; PULSE 90–103; RESP 14–20; TEMP 36.2–37.3; O2SAT 92–95; BMI 43.1; BMI 42.7
[2021-07-19 02:04] LABS: Absolute Lymphocyte Count 0.77 X10^3/uL (0.83-4.51); Absolute Neutrophil Count 17.9 X10^3/uL (2.0-7.7); Basophil# 0.02 X10^3/uL; Basophil% 0.1 % (0-1); Eosinophil# 0.03 X10^3/uL; Eosinophils% 0.1 % (0-5); Hematocrit 40.8 % (37-47); Lymphocyte # 0.77 X10^3/ul (0.83-4.51); Lymphocyte % 3.8 % (19-41); Mean Corp Hgb Conc 31.9 g/dL (32-36); Mean Corpuscular Hgb 26.9 pg (27.0-32.0); Mean Corpuscular Volume 84.5 fL (81-99); Mean Platelet Vol. 10.3 fl (6.2-12.0); Monocyte# 1.26 X10^3/uL; Monocyte% 6.3 % (0-10); NRBC Flagged by Analyzer 0 % (0-5); Neutrophil # 17.88 X10^3/uL (2.7-7.7); Neutrophil % 89.1 % (47-70); Platelet Count 284 K/mm3 (150-450); RBC Distribution Width CV 13.4 % (11.6-14.6); RBC Distribution Width SD 41.4 fl (35.1-43.9); Red Blood Count 4.83 M/mm3 (4.2-5.4); White Blood Count 20.1 K/mm3 (4.4-11.0)
[2021-07-19] MEDS: 0.9% Normal Saline 1,000 ML 999 ML IV (02:21)
[2021-07-19] MEDS: Ondansetron 4 MG/2 ML Vial IV ×3 (02:21→23:18)
[2021-07-19] MEDS: morphine 8 MG/ML Syringe 6 MG IV (02:21)
[2021-07-19 02:24] LABS: ALB/GLOB Ratio 0.6 RATIO (0.9-2.4); AST(SGOT) 30 U/L (15-37); Alanine Aminotransfer ALT/SGPT 34 U/L (13-56); Albumin, Serum 2.7 g/dL (3.2-5.0); Alkaline Phosphatase 71 U/L (45-117); Anion Gap 8 (5-15); BUN 11 mg/dL (7-18); BUN/Creat Ratio 13.4 RATIO (10-20); Chloride 102 mmol/L (98-107); Creatinine, Serum 0.82 mg/dL (0.55-1.02); EST Glomerular Filtration Rate 78 mL/min (>60); Est Glom Filt Rate - Afr Amer 95 mL/min (>60); Estimated Creatinine Clearance 70.88 ml/min; Globulin 4.4 g/dL (2.2-4.2); Glucose 99 mg/dL (74-106); Lipase 126 U/L (73-393); Potassium 3.8 mmol/L (3.5-5.1); Protein, Total 7.1 g/dL (6.4-8.2); Sodium Level 137 mmol/L (136-145); Troponin-I HS 6 pg/mL (3.0-54.0)
--- NOTE | 2021-07-19 02:34 | EX.ED.DYSGE1 ---
HPI History of Present Illness Chief Complaint: Nausea/Vomiting Informant: patient Narrative Narrative: Patient is a 50-year-old female presenting with persistent/worsening abdominal pain and vomiting. Patient states she is unable to eat or drink anything for the past 3 days because of her symptoms. She has Zofran, Reglan and Bentyl at home. She was seen in the ER a day and a half ago for the same complaint. At that time she was switched from Cipro/Flagyl to Augmentin. She is currently on prednisone as well. Patient was discharged as after discussion with hospitalist, it was felt that patient would not benefit from inpatient treatment. Patient has been evaluated by Dr. Morfin GI, and had an EGD/colonoscopy. She was tentatively diagnosed with Crohn's disease with pathology pending. She is been having worsening abdominal pain for the past month or 2. Her pathology came back today positive for adenocarcinoma likely colonic source. She had a CT of the abdomen pelvis yesterday with abnormal peripheral mesentery and scattered mesenteric prominent lymph nodes concerning for neoplastic process including peritoneal carcinomatosis. In addition patient had interval worsening of intra-abdominal ascites with development of bilateral pleural effusions. Patient states today she vomited so bad she developed a nosebleed. She denies any change to the characteristics of her pain or her symptoms. No acute complaints at this time. [facility] Medical History Abdominal pain Abnormal CT scan Anxiety and depression Back pain Chronic cough DVT (deep venous thrombosis) Former tobacco use Gastric reflux GERD (gastroesophageal reflux disease) History of steroid therapy Left leg pain Migraine headache Morbid obesity Post-menopausal Shortness of breath on exertion Wears dentures Wears glasses Home Medications buspirone 10 mg PO BID 06/13/21 [History Last Taken 06/11/21] escitalopram oxalate 20 mg PO DAILY 06/13/21 [History Last Taken 06/11/21] hyoscyamine sulfate [Levbid] 0.375 mg PO Q8H PRN 06/13/21 [History Last Taken 06/13/21] pantoprazole 40 mg PO DAILY #30 tab 06/16/21 [Rx Last Taken Unknown] dicyclomine 10 mg capsule 10 mg PO TID #90 cap 07/01/21 [Rx Last Taken Unknown] prednisone 40 mg PO DAILY 07/12/21 [History Last Taken Unknown] metronidazole 375 mg capsule 500 mg PO Q8H #42 cap 07/13/21 [Rx Last Taken Unknown] ondansetron 4 mg PO Q8H PRN PRN #10 tab 07/15/21 [Rx Last Taken Unknown] amoxicillin-pot clavulanate 875 mg PO Q12H #20 tablet 07/18/21 [Rx Last Taken Unknown] hydrocodone-acetaminophen 5-325mg 5mg-325mg 1 tab PO Q6H PRN PRN 3 Days #10 tablet 07/18/21 [Rx Last Taken Unknown] ondansetron 4 mg PO Q8H PRN PRN #10 tab 07/18/21 [Rx Last Taken Unknown] Allergy/AdvReac Type Severity Reaction Status Date / Time No Known Allergies Allergy Verified 07/17/21 18:29 Family History Father Diabetes Mother Hypertension Brother Hypertension Surgical History History of cholecystectomy (~06/2021) S/P section S/P rotator cuff repair Social History household members: family Smoking Status: Former smoker how long ago did patient quit smoking: Quit 2 years prior, smoked 1/2 ppd since she was a teenager until quitting. alcohol intake: never substance use type: does not use ROS ROS ED Constitutional Constitutional ED: Reports sweats; Denies chills or fever(s) Eyes Eyes: Denies change in vision ENT ENT ED: Reports other Details: Epistaxis ; Denies ear pain Cardiovascular Cardiovascular: Denies chest pain or palpitations Respiratory/Chest Respiratory/Chest: Reports dyspnea; Denies dyspnea on exertion Gastrointestinal Gastrointestinal: Reports abdominal pain, diarrhea, nausea and vomiting; Denies constipation Genitourinary Genitourinary ED: Denies dysuria Integumentary Denies rash Neurologic Neurologic: Reports weakness; Denies headache(s) Psychiatric Psychiatric: Denies depression EXAM Physical Exam Const Vital Signs: 07/19/21 01:18 07/19/21 01:22 Temperature 98.7 F 98.7 F Temperature Source Oral Temporal Pulse Rate 101 H 97 Respiratory Rate 20 H 19 H Blood Pressure 154/96 H 154/96 H Blood Pressure Mean 115 115 Pulse Ox 93 92 Oxygen Delivery Method Room Air Room Air Positive well nourished and well developed General Appearance ED: well developed HEENT Reports moist mucous membranes Negative for tenderness Eyes PERRL and EOMs intact bilaterally Neck supple Chest Wall inspection of chest normal Resp normal respiratory effort and clear to auscultation bilaterally Cardio regular rate, regular rhythm and no murmurs GI Auscultation: hypoactive bowel sounds Palpation: soft and tender epigastric; Negative for guarding or rebound tenderness present Back/Spine no CVA tenderness Extremity normal to inspection General Extremety ED: Negative for edema or tenderness General Extremity: Negative for edema Neuro oriented x3 Sensorium / Orientation: alert Motor Exam: general weakness Psych mental status grossly normal Mood & Affect: anxious Skin no rashes or lesions noted and no wounds MDM MDM MDM Narrative Medical decision making narrative: Patient is evaluated for continued abdominal pain, nausea and vomiting. She had pathology results that came back today showing adenocarcinoma with primary source likely the colon. This is a new diagnosis. Given patient's inability to keep p.o. and her significant abdominal pain she will be admitted for further pain control and evaluation. She is agreeable this plan of care. She is given IV morphine and Zofran in the ER in addition IV fluids. As she had a CT of the abdomen pelvis a little more than 24 hours ago I do not think a repeat is indicated at this time and there has not been any significant change in her symptomatology, just continuation of it. Lab Data Labs: Laboratory Results - last 24 hr 07/19/21 07/19/21 07/19/21 01:55 01:55 02:14 WBC 20.1 H RBC 4.83 Hgb 13.0 Hct 40.8 MCV 84.5 MCH 26.9 L MCHC 31.9 L RDW Std Deviation 41.4 RDW Coeff of Mohsen 13.4 Plt Count 284 MPV 10.3 Immature Gran % (Auto) 0.600 Neut % (Auto) 89.1 H Lymph % (Auto) 3.8 L [facility] % (Auto) 6.3 Eos % (Auto) 0.1 Baso % (Auto) 0.1 Absolute Neuts (auto) 17.9 H Absolute Lymphs (auto) 0.77 L Nucleated RBC % 0 Sodium 137 Potassium 3.8 Chloride 102 Carbon Dioxide 27.0 Anion Gap 8 BUN 11 Creatinine 0.82 Estim Creat Clear Calc 70.88 Est GFR (MDRD) Af Amer 95 Est GFR (MDRD) Non-Af 78 BUN/Creatinine Ratio 13.4 Glucose 99 Lactic Acid 1.0 Calcium 9.0 Total Bilirubin 0.40 AST 30 ALT 34 Alkaline Phosphatase 71 Troponin I High Sens 6 Total Protein 7.1 Albumin 2.7 L Globulin 4.4 H Albumin/Globulin Ratio 0.6 L Lipase 126 Discharge Plan Triage Chief Complaint: Nausea/Vomiting ED Provider: Marly Amador Dx/Rx/DC Orders Clinical Impression: Colon cancer, Intractable vomiting with nausea, Intractable abdominal pain Primary Care Provider: Alysha Amaya Disposition Disposition: Acute Care [facility]
--- NOTE | 2021-07-19 02:53 | HP.PCM_ITS ---
HPI - General HPI Narrative YENY CERON, is a 50 F who presents to the emergency room with worsening abdominal pain. Patient was seen and sent from the emergency room yesterday with similar complaint and has been treated for the past 3 weeks for colitis but has failed to improve. 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 Tonight the patient will be admitted for pain control and IV hydration with a.m. labs ordered. The patient has poor p.o. tolerance at this point and would anticipate if surgery is to be done then it should be expedited. [facility] Medical History Abdominal pain Abnormal CT scan Anxiety and depression Back pain Chronic cough DVT (deep venous thrombosis) Former tobacco use Gastric reflux GERD (gastroesophageal reflux disease) History of steroid therapy Left leg pain Migraine headache Morbid obesity Post-menopausal Shortness of breath on exertion Wears dentures Wears glasses Home Medications buspirone 10 mg PO BID 06/13/21 [History Last Taken 06/11/21] escitalopram oxalate 20 mg PO DAILY 06/13/21 [History Last Taken 06/11/21] hyoscyamine sulfate [Levbid] 0.375 mg PO Q8H PRN 06/13/21 [History Last Taken 06/13/21] pantoprazole 40 mg PO DAILY #30 tab 06/16/21 [Rx Last Taken Unknown] dicyclomine 10 mg capsule 10 mg PO TID #90 cap 07/01/21 [Rx Last Taken Unknown] prednisone 40 mg PO DAILY 07/12/21 [History Last Taken Unknown] metronidazole 375 mg capsule 500 mg PO Q8H #42 cap 07/13/21 [Rx Last Taken Unknown] ondansetron 4 mg PO Q8H PRN PRN #10 tab 07/15/21 [Rx Last Taken Unknown] amoxicillin-pot clavulanate 875 mg PO Q12H #20 tablet 07/18/21 [Rx Last Taken Unknown] hydrocodone-acetaminophen 5-325mg 5mg-325mg 1 tab PO Q6H PRN PRN 3 Days #10 tablet 07/18/21 [Rx Last Taken Unknown] ondansetron 4 mg PO Q8H PRN PRN #10 tab 07/18/21 [Rx Last Taken Unknown] Allergy/AdvReac Type Severity Reaction Status Date / Time No Known Allergies Allergy Verified 07/17/21 18:29 Family History Father Diabetes Mother Hypertension Brother Hypertension Surgical History History of cholecystectomy (~06/2021) S/P section S/P rotator cuff repair Social History household members: family Smoking Status: Former smoker how long ago did patient quit smoking: Quit 2 years prior, smoked 1/2 ppd since she was a teenager until quitting. alcohol intake: never substance use type: does not use ROS Constitutional Constitutional: Reports anorexia and weakness ENT HEENT: Denies abnormal hearing Cardiovascular Cardiovascular: Denies chest pain Respiratory/Chest Respiratory/Chest: Denies cough Gastrointestinal Gastrointestinal: Reports abdominal pain, diarrhea, nausea and vomiting Genitourinary Genitourinary: Denies dysuria Musculoskeletal Musculoskeletal: Denies back pain Integumentary Integumentary: Denies dry skin Neurologic Neurologic: Denies abnormal gait Psychiatric Psychiatric: Reports anxiety Vital Signs Vital Signs Vital Signs: 07/19/21 01:18 07/19/21 01:22 Temperature 98.7 F 98.7 F Temperature Source Oral Temporal Pulse Rate 101 H 97 Respiratory Rate 20 H 19 H Blood Pressure 154/96 H 154/96 H Blood Pressure Mean 115 115 Pulse Ox 93 92 Oxygen Delivery Method Room Air Room Air Weight Weight: 251 lb 1.704 oz Body Mass Index (BMI) 43.1 Physical Exam Const oriented x3 General Appearance: cooperative HEENT head/scalp atraumatic Eyes PERRL Neck supple Lymph Lymphatic: no lymphadenopathy noted Resp normal respiratory effort, normal air movement and clear to auscultation b ilaterally Cardio regular rate, regular rhythm, S1 normal heart sound, S2 normal heart sound and no murmurs GI Inspection: abdominal distention Auscultation: hypoactive bowel sounds Palpation: tender epigastric, LLQ, RLQ, LUQ and RUQ Extremity normal capillary refill Skin General Skin Exam: turgor normal Neuro CN's II-XII intact bilaterally Psych Appearance: appropriate Mood & Affect: anxious Results Lab / Micro Data Result Diagrams: 07/19/21 01:55 07/19/21 01:55 Labs: Laboratory Results - last 24 hr 07/19/21 01:55: WBC 20.1 H, RBC 4.83, Hgb 13.0, Hct 40.8, MCV 84.5, MCH 26.9 L, MCHC 31.9 L, RDW Std Deviation 41.4, RDW Coeff of Mohsen 13.4, Plt Count 284, MPV 10.3, Immature Gran % (Auto) 0.600, Neut % (Auto) 89.1 H, Lymph % (Auto) 3.8 L, [place] % (Auto) 6.3, Eos % (Auto) 0.1, Baso % (Auto) 0.1, Absolute Neuts (auto) 17.9 H, Absolute Lymphs (auto) 0.77 L, Nucleated RBC % 0 07/19/21 01:55: Sodium 137, Potassium 3.8, Chloride 102, Carbon Dioxide 27.0, Anion Gap 8, BUN 11, Creatinine 0.82, Estim Creat Clear Calc 70.88, Est GFR ( RD) Af Amer 95, Est GFR (MDRD) Non-Af 78, BUN/Creatinine Ratio 13.4, Glucose 99, Calcium 9.0, Total Bilirubin 0.40, AST 30, ALT 34, Alkaline Phosphatase 71, Troponin I High Sens 6, Total Protein 7.1, Albumin 2.7 L, Globulin 4.4 H, Albumin/Globulin Ratio 0.6 L, Lipase 126 Assessment & Plan Assessment/Plan (1) Colon cancer: (2) Hx of Crohn's disease: PLAN: 1. Abdominal pain secondary to new diagnosis of colon cancer?admit patient to medical surgical floor, Dilaudid 1 mg IV every 4 hours as needed pain, Zofran 4 mg IV every 8 hours as needed nausea, repeat CBC CMP in the morning, consult Dr. Morfin to discuss surgical options and heme-onc consult when appropriate. 2. History of Crohn's disease may continue Augmentin for now and steroids, however, due to new finding of poorly differentiated adenocarcinoma it is more likely that surgical intervention is needed. 3. DVT prophylaxis?low molecular weight heparin 4. Anxiety we will add Ativan 0.5 mg every 8 hours as needed anxiety due to new life-threatening diagnosis (the patient is a single mother and has a 13-year-old son at home and lost her daughter due to neuroblastoma when she was at the age of 13 as well) Charges/Coding Visit Charges Inpatient E&M: 51469 Init Hosp L3
--- NOTE | 2021-07-19 03:59 | PCS.PANDOC ---
PANDEMIC DOCUMENTATION INITIATED: Date: 04/25/2021 Time: 190
[2021-07-19] MEDS: 0.9% Normal Saline 1,000 ML 100 ML IV ×2 (04:14→14:54)
[2021-07-19] MEDS: metroNIDAZOLE 500 MG Tablet PO ×2 (05:11→14:49)
[2021-07-19] MEDS: Dicyclomine 10 MG Capsule PO ×3 (05:11→20:39)
[2021-07-19] MEDS: HYDROmorphone 1 MG/ML Syringe IV ×5 (05:12→20:39)
[2021-07-19] MEDS: Calcium Carbonate 500 MG Tablet PO (05:12)
[2021-07-19 07:15] LABS: Absolute Lymphocyte Count 0.86 X10^3/uL (0.83-4.51); Absolute Neutrophil Count 15.7 X10^3/uL (2.0-7.7); Basophil# 0.01 X10^3/uL; Basophil% 0.1 % (0-1); Eosinophil# 0.14 X10^3/uL; Eosinophils% 0.8 % (0-5); Lymphocyte # 0.86 X10^3/ul (0.83-4.51); Lymphocyte % 4.7 % (19-41); Mean Corp Hgb Conc 31.6 g/dL (32-36); Mean Corpuscular Volume 85.6 fL (81-99); Mean Platelet Vol. 10.7 fl (6.2-12.0); Monocyte# 1.35 X10^3/uL; Monocyte% 7.4 % (0-10); NRBC Flagged by Analyzer 0 % (0-5); Neutrophil # 15.71 X10^3/uL (2.7-7.7); Neutrophil % 86.1 % (47-70); Platelet Count 248 K/mm3 (150-450); RBC Distribution Width CV 13.6 % (11.6-14.6); RBC Distribution Width SD 42.1 fl (35.1-43.9); Red Blood Count 4.44 M/mm3 (4.2-5.4); White Blood Count 18.2 K/mm3 (4.4-11.0)
--- NOTE | 2021-07-19 07:19 | US_ITS ---
STUDY: ABDOMINAL ULTRASOUND - 4 quadrants. Ascites survey. REASON FOR VISIT: Female, 50 years old metastatic colon cancer TECHNIQUE: Ultrasound evaluation of the 4 quadrants was performed with real-time and static allen-scale imaging. TECHNICAL QUALITY: Adequate. COMPARISON: None. FINDINGS: Tiny amount of free fluid is seen in the left lower quadrant. Not enough fluid for safe paracentesis. US/Abdomen Limited IMPRESSION: Not enough fluid for safe paracentesis. Electronically Signed: Carlitos Roberts MD at 14:52 EST , Service support ,
[2021-07-19 07:56] LABS: ALB/GLOB Ratio 0.6 RATIO (0.9-2.4); AST(SGOT) 32 U/L (15-37); Alanine Aminotransfer ALT/SGPT 30 U/L (13-56); Albumin, Serum 2.3 g/dL (3.2-5.0); Alkaline Phosphatase 61 U/L (45-117); Anion Gap 10 (5-15); BUN 10 mg/dL (7-18); BUN/Creat Ratio 14.1 RATIO (10-20); Calcium,Total 8.5 mg/dL (8.5-10.1); Chloride 105 mmol/L (98-107); Creatinine, Serum 0.71 mg/dL (0.55-1.02); EST Glomerular Filtration Rate 93 mL/min (>60); Est Glom Filt Rate - Afr Amer 112 mL/min (>60); Estimated Creatinine Clearance 81.86 ml/min; Globulin 4.1 g/dL (2.2-4.2); Glucose 88 mg/dL (74-106); Potassium 3.7 mmol/L (3.5-5.1); Protein, Total 6.4 g/dL (6.4-8.2); Sodium Level 139 mmol/L (136-145)
[2021-07-19] MEDS: Escitalopram Oxalate 20 MG Tablet PO (09:25)
[2021-07-19] MEDS: Amox/Clavulanate 875 MG Tablet PO ×2 (09:26→20:39)
--- NOTE | 2021-07-19 10:17 | CASEMGMT ---
BENITO REYES assessment: Face to Face with patient for initial transition planning/care coordination assessment. BENITO REYES introduced self and role at [facility], pt voices understanding and consents to assessment. Pt is sitting up in bed in no distress on room air. Pt is A/Ox4 and answers all questions appropriately. Pt's mother is at bedside during assessment. Care providers, pharmacy, and demographics verified. Presentation: Recently dx'd w/ colon cancer, now having vomiting and unable to keep meds down Admitting dx: Abd pain, new colon cancer dx PCP: Alysha Amaya Specialists: Friend, Gastro; Christos, nico Preferred Pharmacy: [facility] [place] Insurance: MMO Prescription Benefit: MMO Living Will/HPOA: Pt states does not have LW/HPOA but would like to complete at this time. Coreen zuluaga, voices understanding. LNOK: Jia James, mother Living Arrangements: Pt lives with mother and 13 yr old child in 2 story home and states no concerns at home. Pt is independent with ADL's. Transportation: Pt drives self and states no transportation concerns. DME/HHC: Pt states no current DME or need for any further DME. Pt states no hx of HHC or SNF. Pt states no concerns with going home at time of discharge. 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 Pt states does not smoke cigarettes or drink ETOH. Pt states no further concerns/needs. CM to follow for any further discharge planning/needs. Advised pt to ask for CM if any further questions/concerns/needs arise, voices understanding. Pt Goal: Home Plan: Home w/ family [place] BENITO REYES
[2021-07-19] MEDS: Ensure Clear 120 ML Liquid PO (14:49)
--- NOTE | 2021-07-19 15:27 | PCM.PN.HOSP ---
Subjective Subjective Follow-up on acute abdominal pain: Patient was seen and examined. Patient complains of abdominal pain. She is going for paracentesis today. Denies any fever or chills. Objective Data Objective Data Vital Signs: Vital Signs Temp Pulse Resp BP Pulse Ox 97.8 F 96 14 132/82 H 92 07/19/21 14:45 07/19/21 14:45 07/19/21 14:45 07/19/21 14:45 07/19/21 14:45 Oxygen Delivery Method Room Air Weight: 112.9 kg Body Mass Index (BMI) 42.7 Intake & Output: Intake and Output for Last 24 Hours 07/17/21 07/18/21 07/19/21 23:59 23:59 23:59 Intake Total 1999 Balance 1999 Medical Nutrition Assessment Dietitian: Malnutrition Criteria Met Start: 07/19/21 12:56 Freq: Status: Active Protocol: Document 07/19/21 12:56 AG (Rec: 07/19/21 12:56 [id number]) Nutrition Malnutrition Evidence of Malnutrition Exists Yes Malnutrition (severe): Acute Illness/Injury Evidenced By Suboptimal Energy Intake ( Severe),Weight Loss (Severe) Clinical Problem Acute Disease or Injury Related Malnutrition Etiology severe, acute malnutrition r/t inadequate energy intake d/t GI dysfunction, new dx of colon cancer Signs/Symptoms as evidenced by unintentional wt loss of 19.1#/7% x 1 month, estimated PO intake meeting < 50% of estimated nutritional needs x1 month [employer] 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 Recommend nutrition support if unable to resume PO diet- will provide additional recommendations as indicated. Lab / Micro Data Result Diagrams: 07/19/21 06:00 07/19/21 06:00 Labs: Laboratory Results - last 24 hr 07/19/21 01:55: WBC 20.1 H, RBC 4.83, Hgb 13.0, Hct 40.8, MCV 84.5, MCH 26.9 L, MCHC 31.9 L, RDW Std Deviation 41.4, RDW Coeff of Mohsen 13.4, Plt Count 284, MPV 10.3, Immature Gran % (Auto) 0.600, Neut % (Auto) 89.1 H, Lymph % (Auto) 3.8 L, [place] % (Auto) 6.3, Eos % (Auto) 0.1, Baso % (Auto) 0.1, Absolute Neuts (auto) 17.9 H, Absolute Lymphs (auto) 0.77 L, Nucleated RBC % 0 07/19/21 01:55: Sodium 137, Potassium 3.8, Chloride 102, Carbon Dioxide 27.0, Anion Gap 8, BUN 11, Creatinine 0.82, Estim Creat Clear Calc 70.88, Est GFR (MDRD) Af Amer 95, Est GFR (MDRD) Non-Af 78, BUN/Creatinine Ratio 13.4, Glucose 99, Calcium 9.0, Total Bilirubin 0.40, AST 30, ALT 34, Alkaline Phosphatase 71, Troponin I High Sens 6, Total Protein 7.1, Albumin 2.7 L, Globulin 4.4 H, Albumin/Globulin Ratio 0.6 L, Lipase 126 07/19/21 02:14: Lactic Acid 1.0 07/19/21 06:00: WBC 18.2 H, RBC 4.44, Hgb 12.0, Hct 38.0, MCV 85.6, MCH 27.0, MCHC 31.6 L, RDW Std Deviation 42.1, RDW Coeff of Mohsen 13.6, Plt Count 248, MPV 10.7, Immature Gran % (Auto) 0.900, Neut % (Auto) 86.1 H, Lymph % (Auto) 4.7 L, [place] % (Auto) 7.4, Eos % (Auto) 0.8, Baso % (Auto) 0.1, Absolute Neuts (auto) 15.7 H, Absolute Lymphs (auto) 0.86, Nucleated RBC % 0 07/19/21 06:00: Sodium 139, Potassium 3.7, Chloride 105, Carbon Dioxide 24.0, Anion Gap 10, BUN 10, Creatinine 0.71, Estim Creat Clear Calc 81.86, Est GFR (MDRD) Af Amer 112, Est GFR (MDRD) Non-Af 93, BUN/Creatinine Ratio 14.1, Glucose 88, Calcium 8.5, Total Bilirubin 0.30, AST 32, ALT 30, Alkaline Phosphatase 61, Total Protein 6.4, Albumin 2.3 L, Globulin 4.1, Albumin/Globulin Ratio 0.6 L Radiography Diagnostic Testing: Radiology Impression Abdomen Ultrasound 07/19/21 07:19 IMPRESSION: Not enough fluid for safe paracentesis. Electronically Signed: Carlitos Roberts MD at 14:52 EST , Service support , Physical Exam Narrative Physical exam: General: Alert, Oriented x3, Cooperative, No apparent distress, Well developed HEENT: Atraumatic Oral: Moist Mucosa Neck: Supple Lungs: Clear to auscultation Cardiovascular: HS I+II, regular, no murmurs Abdomen: Bowel Sounds Present, Soft, generalised tenderness all over abdomen, no guarding or RBT Extremities: No edema Assessment & Plan Assessment/Plan (1) Colon cancer: PLAN: 1. Acute intractable abdominal pain secondary to colon CA, probably metastatic Will continue on IV Dilaudid as needed 2. Ascites, newly diagnosed on CT, patient going for paracentesis GI following 3. History of Crohn's disease, continue on Augmentin Will discontinue Flagyl 4. Anxiety disorder, continue on Lexapro 5. DVT prophylaxis Lovenox subcu Charges/Coding Visit Charges Inpatient E&M: 54569 Subs Hosp L2
--- NOTE | 2021-07-19 17:11 | EX.PCM.CON.G ---
HPI Consult Data Date of Consult: 07/19/21 HPI Narrative HPI Narrative: YENY CERON, is a 50 F who presents with worsening abdominal pain. She recently underwent elective cholecystectomy. She had been having worsening abdominal pain and had a CT scan. It is shown some thickening in the right-sided colon extending to the terminal ileum. She had a presumptive diagnosis of Crohn's disease. She was started on steroids along with antibiotics. She underwent colonoscopy by myself. She was discovered to have extensive ulcerations involving the hepatic flexure all the way to the terminal ileum which was not able to be intubated. Biopsies of the right side of the colon revealed poorly differentiated adenocarcinoma. She got a CT scan abdomen pelvis that had shown possible peritoneal carcinomatosis with diffuse lymphadenopathy and mild ascites. REPLACED BY [facility] Medical History (Updated 07/19/21 @ 09:05 by Kassi Narvaez) Abnormal CT scan Anxiety Anxiety and depression Back pain Chronic cough Depression DVT (deep venous thrombosis) Former tobacco use Gastric reflux GERD (gastroesophageal reflux disease) History of steroid therapy Left leg pain Migraine headache Morbid obesity Post-menopausal Shortness of breath on exertion Wears dentures Wears glasses Home Medications buspirone 10 mg PO BID 06/13/21 [History Last Taken 06/11/21] escitalopram oxalate 20 mg PO DAILY 06/13/21 [History Last Taken 06/11/21] hyoscyamine sulfate [Levbid] 0.375 mg PO Q8H PRN 06/13/21 [History Last Taken 06/13/21] pantoprazole 40 mg PO DAILY #30 tab 06/16/21 [Rx Last Taken Unknown] dicyclomine 10 mg capsule 10 mg PO TID #90 cap 07/01/21 [Rx Last Taken Unknown] prednisone 40 mg PO DAILY 07/12/21 [History Last Taken Unknown] metronidazole 375 mg capsule 500 mg PO Q8H #42 cap 07/13/21 [Rx Last Taken Unknown] ondansetron 4 mg PO Q8H PRN PRN #10 tab 07/15/21 [Rx Last Taken Unknown] amoxicillin-pot clavulanate 875 mg PO Q12H #20 tablet 07/18/21 [Rx Last Taken Unknown] hydrocodone-acetaminophen 5-325mg 5mg-325mg 1 tab PO Q6H PRN PRN 3 Days #10 tablet 07/18/21 [Rx Last Taken Unknown] ondansetron 4 mg PO Q8H PRN PRN #10 tab 07/18/21 [Rx Last Taken Unknown] Allergy/AdvReac Type Severity Reaction Status Date / Time No Known Allergies Allergy Verified 07/17/21 18:29 Family History Father Diabetes Mother Hypertension Brother Hypertension Surgical History History of cholecystectomy (~06/2021) S/P section S/P rotator cuff repair Social History household members: family Smoking Status: Former smoker how long ago did patient quit smoking: Quit 2 years prior, smoked 1/2 ppd since she was a teenager until quitting. alcohol intake: never substance use type: does not use ROS Review of Systems ROS Unobtainable: other Constitutional Constitutional: Denies fatigue, fever(s), poor appetite, weight gain or weight loss ENT HEENT: Denies mouth lesions Cardiovascular Cardiovascular: Denies abdominal bloating, abdominal edema or abdominal pain Respiratory/Chest Respiratory/Chest: Denies change in mental status, change in phlegm color, chest congestion or chest tightness Gastrointestinal Gastrointestinal: Denies belching, bloating, change in bowel habits, change in stool character, chewing difficulty, coffee ground emesis, constipation, cramping, diarrhea, dyspepsia, dysphagia, early satiety, excessive flatus, fecal incontinence, heartburn, hematemesis, hematochezia, hemorrhoids, loose stools, melena, nausea, odynophagia, rectal bleeding, tenesmus, vomiting or weight changes Genitourinary Genitourinary: Denies abdominal discomfort, burning urination or itching Musculoskeletal Musculoskeletal: Reports as per HPI; Denies muscle weakness or myalgias Integumentary Integumentary: Denies jaundice Neurologic Neurologic: Denies lack of coordination or weakness Psychiatric Psychiatric: Denies confusion, depression, memory loss, mood swings, paranoia or suicidal ideation Endocrine Endocrinology: Denies systems reviewed and no addt'l complaints, except as documented Hematologic/Lymphatic Hematologic/Lymphatic: Denies anemia, easy bleeding, easy bruising or lymphadenopathy Allergic/Immunologic Allergic/Immunologic: Denies systems reviewed and no addt'l complaints, except as documented Physical Exam Const alert General Appearance: cooperative Orientation / Consciousness: oriented to person HEENT hearing grossly normal bilaterally Head and Scalp: normal to inspection Face and Sinus: face symmetric Nose: external nose normal Mouth: oral and palatal mucosa normal Eyes conjunctivae normal General Eye: normal appearance of both eyes Neck full ROM General: normal visual inspection Lymph Lymphatic: no lymphadenopathy noted Chest inspection of chest normal and palpation of chest normal Chest: symmetrical chest wall rise Resp normal respiratory effort Effort and Inspection: able to speak in complete sentences Cardio regular rate GI non-distended Percussion: normal to percussion Rectal Exam: deferred Neuro Speech: speech normal Gait (Neuro): normal gait Medical Records Data Medical Nutrition Assessment Dietitian: Malnutrition Criteria Met Start: 07/19/21 12:56 Freq: Status: Active Protocol: Document 07/19/21 12:56 (Rec: 07/19/21 12:56 [id number]) Nutrition Malnutrition Evidence of Malnutrition Exists Yes Malnutrition (severe): Acute Illness/Injury Evidenced By Suboptimal Energy Intake ( Severe),Weight Loss (Severe) Clinical Problem Acute Disease or Injury Related Malnutrition Etiology severe, acute malnutrition r/t inadequate energy intake d/t GI dysfunction, new dx of colon cancer Signs/Symptoms as evidenced by unintentional wt loss of 19.1#/7% x 1 month, estimated PO intake meeting < 50% of estimated nutritional needs x1 month [employer]ER Status Active Problem Recommendation Dietitian Recommendations/Changes advance diet as tolerated to transitional; will provide ensure clear 120mL 4x/day w/ medpass while on clear liquids . Recommend nutrition support if unable to resume PO diet- will provide additional recommendations as indicated. Lab / Micro Data Result Diagrams: 07/19/21 06:00 07/19/21 06:00 Labs: Laboratory Results - last 24 hr 07/19/21 01:55: WBC 20.1 H, RBC 4.83, Hgb 13.0, Hct 40.8, MCV 84.5, MCH 26.9 L, MCHC 31.9 L, RDW Std Deviation 41.4, RDW Coeff of Mohsen 13.4, Plt Count 284, MPV 10.3, Immature Gran % (Auto) 0.600, Neut % (Auto) 89.1 H, Lymph % (Auto) 3.8 L, [place] % (Auto) 6.3, Eos % (Auto) 0.1, Baso % (Auto) 0.1, Absolute Neuts (auto) 17.9 H, Absolute Lymphs (auto) 0.77 L, Nucleated RBC % 0 07/19/21 01:55: Sodium 137, Potassium 3.8, Chloride 102, Carbon Dioxide 27.0, Anion Gap 8, BUN 11, Creatinine 0.82, Estim Creat Clear Calc 70.88, Est GFR (MDRD) Af Amer 95, Est GFR (MDRD) Non-Af 78, BUN/Creatinine Ratio 13.4, Glucose 99, Calcium 9.0, Total Bilirubin 0.40, AST 30, ALT 34, Alkaline Phosphatase 71, Troponin I High Sens 6, Total Protein 7.1, Albumin 2.7 L, Globulin 4.4 H, Albumin/Globulin Ratio 0.6 L, Lipase 126 07/19/21 02:14: Lactic Acid 1.0 07/19/21 06:00: WBC 18.2 H, RBC 4.44, Hgb 12.0, Hct 38.0, MCV 85.6, MCH 27.0, MCHC 31.6 L, RDW Std Deviation 42.1, RDW Coeff of Mohsen 13.6, Plt Count 248, MPV 10.7, Immature Gran % (Auto) 0.900, Neut % (Auto) 86.1 H, Lymph % (Auto) 4.7 L, [place] % (Auto) 7.4, Eos % (Auto) 0.8, Baso % (Auto) 0.1, Absolute Neuts (auto) 15.7 H, Absolute Lymphs (auto) 0.86, Nucleated RBC % 0 07/19/21 06:00: Sodium 139, Potassium 3.7, Chloride 105, Carbon Dioxide 24.0, Anion Gap 10, BUN 10, Creatinine 0.71, Estim Creat Clear Calc 81.86, Est GFR (MDRD) Af Amer 112, Est GFR (MDRD) Non-Af 93, BUN/Creatinine Ratio 14.1, Glucose 88, Calcium 8.5, Total Bilirubin 0.30, AST 32, ALT 30, Alkaline Phosphatase 61, Total Protein 6.4, Albumin 2.3 L, Globulin 4.1, Albumin/Globulin Ratio 0.6 L Radiology Impression Abdomen Ultrasound 07/19/21 07:19 IMPRESSION: Not enough fluid for safe paracentesis. Electronically Signed: Carlitos Roberts MD at 14:52 EST , Service support , Assessment & Plan Assessment/Plan (1) Ascites: PLAN: Patient likely has metastatic colon cancer causing malignant ascites. Patient is scheduled to go down for paracentesis. If that is normal she may need a peritoneal biopsy. She needs cytology of the fluid checked, along with CEA and amylase level. (2) Colon cancer: PLAN: Patient needs to be evaluated by surgery due to the fact that she has a large colon cancer that is extending into the terminal ileum. I eugenie a CEA level and I talked to Dr. Schwarz, who will come and see her in the hospital. (3) Abnormal CT scan: PLAN: Her CT scan abdomen pelvis shows worsening disease from her previous CT scan abdomen pelvis about a month ago. (4) GERD (gastroesophageal reflux disease): PLAN: Continue PPI as previously ordered. Charges/Coding Visit Charges Inpatient E&M: 29357 Init Hosp L3
[2021-07-19] MEDS: busPIRone 5 MG Tablet 10 MG PO (20:39)
[2021-07-20] MEDS: 0.9% Normal Saline 1,000 ML 100 ML IV ×2 (00:30→10:36)
[2021-07-20] MEDS: HYDROmorphone 1 MG/ML Syringe IV ×8 (00:33→23:44)
[2021-07-20 02:45] VITALS: BP 160/86; PULSE 95; RESP 16; TEMP 36.3; O2SAT 92
[2021-07-20] MEDS: Dicyclomine 10 MG Capsule PO ×3 (05:43→20:46)
[2021-07-20 05:45] VITALS: BP 147/88; PULSE 98; RESP 16; TEMP 36.4; O2SAT 93
[2021-07-20 05:45] LABS: Absolute Lymphocyte Count 0.57 X10^3/uL (0.83-4.51); Basophil# 0.03 X10^3/uL; Basophil% 0.2 % (0-1); Eosinophil# 0.13 X10^3/uL; Eosinophils% 0.8 % (0-5); Hematocrit 41.6 % (37-47); Hemoglobin 12.4 g/dL (12.0-15.0); Lymphocyte # 0.57 X10^3/ul (0.83-4.51); Lymphocyte % 3.4 % (19-41); Mean Corp Hgb Conc 29.8 g/dL (32-36); Mean Corpuscular Hgb 27.1 pg (27.0-32.0); Mean Corpuscular Volume 90.8 fL (81-99); Mean Platelet Vol. 10.6 fl (6.2-12.0); Monocyte% 6.5 % (0-10); NRBC Flagged by Analyzer 0 % (0-5); Neutrophil # 14.99 X10^3/uL (2.7-7.7); Neutrophil % 88.4 % (47-70); POSITIVE DIFFERENTIAL YES; Platelet Count 220 K/mm3 (150-450); RBC Distribution Width SD 46.6 fl (35.1-43.9); Red Blood Count 4.58 M/mm3 (4.2-5.4); White Blood Count 16.9 K/mm3 (4.4-11.0)
[2021-07-20 05:46] LABS: Differential Indicated SCAN CRITERIA MET
[2021-07-20 06:05] LABS: Differential Comment SCANNED
[2021-07-20 06:13] LABS: ALB/GLOB Ratio 0.5 RATIO (0.9-2.4); AST(SGOT) 31 U/L (15-37); Alanine Aminotransfer ALT/SGPT 23 U/L (13-56); Albumin, Serum 1.9 g/dL (3.2-5.0); Alkaline Phosphatase 59 U/L (45-117); Anion Gap 10 (5-15); BUN 9 mg/dL (7-18); Calcium,Total 7.9 mg/dL (8.5-10.1); Chloride 106 mmol/L (98-107); EST Glomerular Filtration Rate 112 mL/min (>60); Est Glom Filt Rate - Afr Amer 136 mL/min (>60); Estimated Creatinine Clearance 96.86 ml/min; Globulin 4.2 g/dL (2.2-4.2); Glucose 79 mg/dL (74-106); Potassium 4.2 mmol/L (3.5-5.1); Protein, Total 6.1 g/dL (6.4-8.2); Sodium Level 134 mmol/L (136-145)
[2021-07-20] MEDS: Ondansetron 4 MG/2 ML Vial IV (07:56)
[2021-07-20] MEDS: 0.9% Saline Lock 10 ML Syringe IV ×2 (07:57→16:36)
[2021-07-20] MEDS: Amox/Clavulanate 875 MG Tablet PO ×2 (09:11→20:46)
[2021-07-20] MEDS: busPIRone 5 MG Tablet 10 MG PO ×2 (09:11→20:45)
[2021-07-20] MEDS: Ensure Clear 120 ML Liquid PO ×3 (09:11→17:38)
[2021-07-20] MEDS: Enoxaparin 40 MG/0.4 ML Syringe SC (09:11)
[2021-07-20] MEDS: Calcium Carbonate 500 MG Tablet PO ×3 (09:11→20:45)
[2021-07-20] MEDS: Escitalopram Oxalate 20 MG Tablet PO (09:11)
--- NOTE | 2021-07-20 09:50 | CASEMGMT ---
RN AMY informed SW that patient would like to do advance directives. SW met with patient, introduced self and role at [facility]. SW explained documents to patient. Documents were then completed with patient. Copies were made and given to patient along with originals. A copy of each was also placed in patient's chart. Arline HERRERA
[2021-07-20 10:52] VITALS: BP 144/88; PULSE 110; RESP 16; TEMP 36.8; O2SAT 96
[2021-07-20 11:34] VITALS: O2SAT 91
--- NOTE | 2021-07-20 11:55 | RAD_ITS ---
STUDY: X-RAY - ABDOMEN/PELVIS REASON FOR EXAM: Female, 50 years old. Abdominal distention TECHNIQUE: Single AP view of the abdomen / pelvis. COMPARISON: Comparison is made with prior examination dated 07/15/2021. FINDINGS: Blunting of the left costophrenic angle with mild increased markings at the left lung base suggestive of left basilar atelectasis. Oral contrast is seen within the colon. The bowel pattern is unremarkable. The visualized liver, spleen and kidneys are grossly normal in size and morphology. There is evidence of bilateral tubal ligation clips. Normal visualized osseous structures. RAD/Abdomen Single View (Portable) IMPRESSION: Oral contrast is seen within the colon. Nonspecific bowel gas pattern. Electronically Signed: Carlitos Roberts MD at 15:27 EST , Service support ,
[2021-07-20 14:01] LABS: Carcinoembryonic Antigen 6.3 ng/mL (0.0-4.7)
--- NOTE | 2021-07-20 15:55 | CON.PCM.ON_ITS ---
Assessment & Plan Assessment/Plan (1) Ascites: Status: Acute Code(s): R18.8 - Other ascites Qualifiers: Ascites type: malignant Qualified Code(s): R18.0 - Malignant ascites Plan: Insufficient fluid for tapping, has peritoneal nodules and nodes. Suggestion surgery consult for Laparoscopy and biopsy. (2) Colon cancer: Status: Acute Code(s): C18.9 - Malignant neoplasm of colon, unspecified Qualifiers: Colon location: overlapping sites Qualified Code(s): C18.8 - Malignant neoplasm of overlapping sites of colon Plan: Suggest Surgery consult to evaluate for Colectomy if peritoneum is negative for metastatic disease. HPI Consult Data Date of Service:: 07/20/21 PCP / Referring Provider: KASIA Gupta Attending: Dr. Josselin Monet MD Chief Complaint Chief Complaint: Asked to see for colon cancer. History of Present Illness History of Present Illness: 50-year-old woman presented with abdominal pain, had colonoscopy on 07/13/2021. Was found to have congested mucosa and polyps in the cecum extending into the hepatic flexure. Pathology showed invasive adenocarcinoma in cecum, ascending colon and hepatic flexure. She had persistent abdominal pain, CT abdomen on 07/17/2021 showed mesenteric nodules with ascites. She had persistent abdominal pain so she was admitted to the hospital. Paracentesis was attempted on 07/19/2021 but there was not enough fluid for tapping. CEA on 07/19/2021 was 6.3. Advanced Directives Power of Eligibility Services Representative: No Living Will: No PFSH Medical History (Updated 07/20/21 @ 16:[address] Trung Schwarz MD) Abnormal CT scan Anxiety Anxiety and depression Back pain Chronic cough Depression DVT (deep venous thrombosis) Former tobacco use Gastric reflux GERD (gastroesophageal reflux disease) History of steroid therapy Left leg pain Migraine headache Morbid obesity Post-menopausal Shortness of breath on exertion Wears dentures Wears glasses Home Medications buspirone 10 mg PO BID 06/13/21 [History Last Taken 06/11/21] escitalopram oxalate 20 mg PO DAILY 06/13/21 [History Last Taken 06/11/21] hyoscyamine sulfate [Levbid] 0.375 mg PO Q8H PRN 06/13/21 [History Last Taken 06/13/21] pantoprazole 40 mg PO DAILY #30 tab 06/16/21 [Rx Last Taken Unknown] dicyclomine 10 mg capsule 10 mg PO TID #90 cap 07/01/21 [Rx Last Taken Unknown] prednisone 40 mg PO DAILY 07/12/21 [History Last Taken Unknown] metronidazole 375 mg capsule 500 mg PO Q8H #42 cap 07/13/21 [Rx Last Taken Unknown] ondansetron 4 mg PO Q8H PRN PRN #10 tab 07/15/21 [Rx Last Taken Unknown] amoxicillin-pot clavulanate 875 mg PO Q12H #20 tablet 07/18/21 [Rx Last Taken Un known] hydrocodone-acetaminophen 5-325mg 5mg-325mg 1 tab PO Q6H PRN PRN 3 Days #10 tablet 07/18/21 [Rx Last Taken Unknown] ondansetron 4 mg PO Q8H PRN PRN #10 tab 07/18/21 [Rx Last Taken Unknown] Allergy/AdvReac Type Severity Reaction Status Date / Time No Known Allergies Allergy Verified 07/17/21 18:29 Family History Father Diabetes Mother Hypertension Brother Hypertension Surgical History History of cholecystectomy (~06/2021) S/P section S/P rotator cuff repair Social History household members: family Smoking Status: Former smoker how long ago did patient quit smoking: Quit 2 years prior, smoked 1/2 ppd since she was a teenager until quitting. alcohol intake: never substance use type: does not use ROS Constitutional Constitutional: Denies fatigue ENT HEENT: Denies odynophagia or sore throat Cardiovascular Cardiovascular: Denies chest pain, clubbing or diaphoresis Respiratory/Chest Respiratory/Chest: Denies chest tightness, cough or dyspnea Gastrointestinal Gastrointestinal: Reports abdominal pain, anorexia and bloating Genitourinary Genitourinary: Denies change in urinary stream Musculoskeletal Musculoskeletal: Denies abnormal gait Integumentary Integumentary: Denies dry skin or erythema Neurologic Neurologic: Denies abnormal speech, behavior changes or confusion Psychiatric Psychiatric: Denies anxiety, depression, homicidal ideation or suicidal ideation Endocrine Endocrinology: Denies cold intolerance, flushing or heat intolerance Hematologic/Lymphatic Hematologic/Lymphatic: Denies easy bleeding, easy bruising or lymphadenopathy Physical Exam Const alert and oriented x3 Orientation / Consciousness: oriented to person HEENT normocephalic Eyes PERRL and conjunctivae normal; Negative for no scleral icterus Neck No no lymphadenopathy and supple Lymph Lymphatic: Negative for no lymphadenopathy noted Chest inspection of chest normal Resp normal respiratory effort and clear to auscultation bilaterally Cardio regular rate, regular rhythm, S1 normal heart sound, S2 normal heart sound and no murmurs GI GI Narrative: diffuse tenderness. Groin / Perineum Exam: Negative for hernia Extremity normal to inspection and no clubbing, cyanosis or edema Neuro CN's II-XII intact bilaterally, moves all extremities, no focal motor deficits and no sensory deficits noted Psych mental status grossly normal Vital Signs Temperature 98.3 F 07/20/21 10:52 Temperature Source Oral 07/20/21 10:52 Pulse Rate 110 H 07/20/21 10:52 Respiratory Rate 16 07/20/21 10:52 Respiratory Effort 07/20/21 08:35 Respiratory Depth Normal 07/20/21 08:35 Respiratory Pattern Normal 07/20/21 08:35 Blood Pressure 144/88 H 07/20/21 10:52 Blood Pressure Mean 106 07/20/21 10:52 Blood Pressure Source Monitor 07/20/21 10:52 Blood Pressure Position Semi-Fowlers 07/20/21 10:52 Blood Pressure Location Right Arm 07/20/21 10:52 Pulse Ox 91 07/20/21 11:34 Oxygen Delivery Method Room Air 07/20/21 14:02 Laboratory Results - last 24 hr 07/19/21 01:55: Carcinoembryonic Ag 6.3 H 07/20/21 05:06: WBC 16.9 H, RBC 4.58, Hgb 12.4, Hct 41.6, MCV 90.8 D, MCH 27.1, MCHC 29.8 L D, RDW Std Deviation 46.6 H, RDW Coeff of Mohsen 14.0, Plt Count 220, MPV 10.6, Immature Gran % (Auto) 0.700, Neut % (Auto) 88.4 H, Lymph % (Auto) 3.4 L, [place] % (Auto) 6.5, Eos % (Auto) 0.8, Baso % (Auto) 0.2, Absolute Neuts (auto) 15.0 H, Absolute Lymphs (auto) 0.57 L, Nucleated RBC % 0, Differential Comment SCANNED 07/20/21 05:06: Sodium 134 L, Potassium 4.2, Chloride 106, Carbon Dioxide 18.0 L , Anion Gap 10, BUN 9, Creatinine 0.60, Estim Creat Clear Calc 96.86, Est GFR (MDRD) Af Amer 136, Est GFR (MDRD) Non-Af 112, BUN/Creatinine Ratio 15.0, Glucose 79, Calcium 7.9 L, Total Bilirubin 0.40, AST 31, ALT 23, Alkaline Phosphatase 59, Total Protein 6.1 L, Albumin 1.9 L, Globulin 4.2, Albumin/Globulin Ratio 0.5 L Diagnostic Data Abdomen Ultrasound 07/19/21 07:19 IMPRESSION: Not enough fluid for safe paracentesis. Electronically Signed: Carlitos Roberts MD at 14:52 EST , Service support , KUB X-Ray 07/20/21 11:55 IMPRESSION: Oral contrast is seen within the colon. Nonspecific bowel gas pattern. Electronically Signed: Carlitos Roberts MD at 15:27 EST , Service support , Charges/Coding Visit Charges Office Visits / Consults: 22414 IP Consult L4
--- NOTE | 2021-07-20 16:20 | PN.HOSP_ITS ---
Subjective Subjective Follow-up on acute abdominal pain: Patient was seen and examined. She complained of feeling bloated. KUB was unrema rkable. She had 1 bowel movement today. Discussed patient's care with oncology, GI and general surgery. Objective Data Objective Data Vital Signs: Vital Signs Temp Pulse Resp BP Pulse Ox 98.3 F 110 H 16 144/88 H 91 07/20/21 10:52 07/20/21 10:52 07/20/21 10:52 07/20/21 10:52 07/20/21 11:34 Oxygen Delivery Method Room Air Weight: 112.9 kg Body Mass Index (BMI) 42.7 Intake & Output: Intake and Output for Last 24 Hours 07/18/21 07/19/21 07/20/21 23:59 23:59 23:59 Intake Total 1999 301 / 301 Balance 1999 / 3009 Medical Nutrition Assessment Dietitian: Malnutrition Criteria Met Start: 07/19/21 12:56 Freq: Status: Active Protocol: Document 07/19/21 12:56 AG (Rec: 07/19/21 12:56 AG [id number]) Nutrition Malnutrition Evidence of Malnutrition Exists Yes Malnutrition (severe): Acute Illness/Injury Evidenced By Suboptimal Energy Intake ( Severe),Weight Loss (Severe) Clinical Problem Acute Disease or Injury Related Malnutrition Etiology severe, acute malnutrition r/t inadequate energy intake d/t GI dysfunction, new dx of colon cancer Signs/Symptoms as evidenced by unintentional wt loss of 19.1#/7% x 1 month, estimated PO intake meeting < 50% of estimated nutritional needs x1 month [employer] 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 Recommend nutrition support if unable to resume PO diet- will provide additional recommendations as indicated. Lab / Micro Data Result Diagrams: 07/20/21 05:06 07/20/21 05:06 Labs: Laboratory Results - last 24 hr 07/19/21 01:55: Carcinoembryonic Ag 6.3 H 07/20/21 05:06: WBC 16.9 H, RBC 4.58, Hgb 12.4, Hct 41.6, MCV 90.8 D, MCH 27.1, MCHC 29.8 L D, RDW Std Deviation 46.6 H, RDW Coeff of Mohsen 14.0, Plt Count 220, MPV 10.6, Immature Gran % (Auto) 0.700, Neut % (Auto) 88.4 H, Lymph % (Auto) 3.4 L, [place] % (Auto) 6.5, Eos % (Auto) 0.8, Baso % (Auto) 0.2, Absolute Neuts (auto) 15.0 H, Absolute Lymphs (auto) 0.57 L, Nucleated RBC % 0, Differential Comment SCANNED 07/20/21 05:06: Sodium 134 L, Potassium 4.2, Chloride 106, Carbon Dioxide 18.0 L , Anion Gap 10, BUN 9, Creatinine 0.60, Estim Creat Clear Calc 96.86, Est GFR (MDRD) Af Amer 136, Est GFR (MDRD) Non-Af 112, BUN/Creatinine Ratio 15.0, Glucose 79, Calcium 7.9 L, Total Bilirubin 0.40, AST 31, ALT 23, Alkaline Phosphatase 59, Total Protein 6.1 L, Albumin 1.9 L, Globulin 4.2, Albumin/Globulin Ratio 0.5 L Radiography Diagnostic Testing: Radiology Impression KUB X-Ray 07/20/21 11:55 IMPRESSION: Oral contrast is seen within the colon. Nonspecific bowel gas pattern. Electronically Signed: Carlitos Roberts MD at 15:27 EST , Service support , Physical Exam Narrative Physical exam: General: Alert, Oriented x3, Cooperative, No apparent distress, Well developed HEENT: Atraumatic Oral: Moist Mucosa Neck: Supple Lungs: Clear to auscultation Cardiovascular: HS I+II, regular, no murmurs Abdomen: Bowel Sounds Present, Soft, generalised tenderness all over abdomen, no guarding or RBT Extremities: No edema Assessment & Plan Assessment/Plan (1) Colon cancer: QUALIFIERS: Colon location: overlapping sites Qualified Code(s): C18.8 - Malignant neoplasm of overlapping sites of colon PLAN: 1. Acute intractable abdominal pain secondary to colon CA, probably metastatic/Stage IV Will continue on IV Dilaudid as needed 2. Ascites, newly diagnosed on CT, general surgery to reassess and see if USG guided paracentesis could be obtained 3. History of Crohn's disease, continue on Augmentin 4. Anxiety disorder, continue on Lexapro 5. DVT prophylaxis Lovenox subcu Charges/Coding Visit Charges Inpatient E&M: 49976 Subs Hosp L2
[2021-07-20] MEDS: Furosemide 20 MG/2 ML VIAL IV (16:36)
[2021-07-20 16:43] VITALS: BP 137/86; PULSE 120; RESP 16; TEMP 36.6; O2SAT 93
--- NOTE | 2021-07-20 17:42 | PN.GI_ITS ---
Subjective Subjective She complains of bloating without abdominal pain. She is mildly short of breath secondary to worsening abdominal distention. A diagnostic paracentesis was attempted yesterday but unsuccessful. She did have 2 soft bowel movements after Lasix therapy. She has gained approximately 6 pounds since being in hospital. Objective Data Objective Data Vital Signs: Vital Signs Temp Pulse Resp BP Pulse Ox 97.9 F 120 H 16 137/86 H 93 07/20/21 16:43 07/20/21 16:43 07/20/21 16:43 07/20/21 16:43 07/20/21 16:43 Oxygen Delivery Method Room Air Weight: 248 lb 14.43 oz Body Mass Index (BMI) 42.7 Intake & Output: Intake and Output for Last 24 Hours 07/18/21 07/19/21 07/20/21 23:59 23:59 23:59 Intake Total 1999 3406.67 / 3406.67 Balance 1999 3406.67 / 3406.67 Medical Nutrition Assessment Dietitian: Malnutrition Criteria Met Start: 07/19/21 12:56 Freq: Status: Active Protocol: Document 07/19/21 12:56 AG (Rec: 07/19/21 12:56 AG [id number]) Nutrition Malnutrition Evidence of Malnutrition Exists Yes Malnutrition (severe): Acute Illness/Injury Evidenced By Suboptimal Energy Intake ( Severe),Weight Loss (Severe) Clinical Problem Acute Disease or Injury Related Malnutrition Etiology severe, acute malnutrition r/t inadequate energy intake d/t GI dysfunction, new dx of colon cancer Signs/Symptoms as evidenced by unintentional wt loss of 19.1#/7% x 1 month, estimated PO intake meeting < 50% of estimated nutritional needs x1 month 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 Recommend nutrition support if unable to resume PO diet- will provide additional recommendations as indicated. Lab / Micro Data Result Diagrams: 07/20/21 05:06 07/20/21 05:06 Labs: Laboratory Results - last 24 hr 07/19/21 01:55: Carcinoembryonic Ag 6.3 H 07/20/21 05:06: WBC 16.9 H, RBC 4.58, Hgb 12.4, Hct 41.6, MCV 90.8 D, MCH 27.1, MCHC 29.8 L D, RDW Std Deviation 46.6 H, RDW Coeff of Mohsen 14.0, Plt Count 220, MPV 10.6, Immature Gran % (Auto) 0.700, Neut % (Auto) 88.4 H, Lymph % (Auto) 3.4 L, Barton % (Auto) 6.5, Eos % (Auto) 0.8, Baso % (Auto) 0.2, Absolute Neuts (auto) 15.0 H, Absolute Lymphs (auto) 0.57 L, Nucleated RBC % 0, Differential Comment SCANNED 07/20/21 05:06: Sodium 134 L, Potassium 4.2, Chloride 106, Carbon Dioxide 18.0 L , Anion Gap 10, BUN 9, Creatinine 0.60, Estim Creat Clear Calc 96.86, Est GFR (MDRD) Af Amer 136, Est GFR (MDRD) Non-Af 112, BUN/Creatinine Ratio 15.0, Glucose 79, Calcium 7.9 L, Total Bilirubin 0.40, AST 31, ALT 23, Alkaline Phosphatase 59, Total Protein 6.1 L, Albumin 1.9 L, Globulin 4.2, Albumin/Globulin Ratio 0.5 L Radiography Diagnostic Testing: Radiology Impression KUB X-Ray 07/20/21 11:55 IMPRESSION: Oral contrast is seen within the colon. Nonspecific bowel gas pattern. Electronically Signed: Carlitos Roberts MD at 15:27 EST , Service support , Physical Exam Const alert General Appearance: cooperative Orientation / Consciousness: oriented to person HEENT hearing grossly normal bilaterally Head and Scalp: normal to inspection Face and Sinus: face symmetric Nose: external nose normal Mouth: oral and palatal mucosa normal Eyes conjunctivae normal General Eye: normal appearance of both eyes Neck full ROM General: normal visual inspection Lymph Lymphatic: no lymphadenopathy noted Chest inspection of chest normal and palpation of chest normal Chest: symmetrical chest wall rise Resp normal respiratory effort Effort and Inspection: able to speak in complete sentences Cardio regular rate GI non-distended Percussion: normal to percussion Rectal Exam: deferred Neuro Speech: speech normal Gait (Neuro): normal gait Assessment & Plan Assessment/Plan (1) Ascites: QUALIFIERS: Ascites type: malignant Qualified Code(s): R18.0 - Malignant ascites PLAN: As per the primary team the patient is going to be seen by surgery to see if we can do a peritoneal biopsy plus or minus diagnostic paracentesis. Continue Lasix as previously ordered. (2) Colon cancer: PLAN: At this time we suspect that she has stage IV colon cancer. She is being seen by oncology. Work-up still in progress. (3) Abdominal pain: PLAN: Abdominal pain secondary to ascites, likely nerve involvement of the colon cancer. There is no sign of thrombosis on current imaging. We may need a CT angiography. Charges/Coding Visit Charges Inpatient E&M: 86552 Subs Hosp L3
[2021-07-20 22:40] VITALS: BP 152/81; PULSE 110; RESP 20; TEMP 36.6; O2SAT 95
[2021-07-21] VITALS (8 sets, daily range): BP systolic 122–156; BP diastolic 78–91; PULSE 110–120; RESP 16–18; TEMP 36.5–36.8; O2SAT 87–97
--- NOTE | 2021-07-21 | IMM_PTH ---
PATIENT: YENY CERON LOC: [facility] U#:[id number] AGE/SX: 50/F ROOM: [facility] RE07/19/[address]: Dr. David Pickering DO : 1970 BED: 1 DIS: 07/26/2021 SPEC #: [id number] RECD: 07/22/21 10:28 STATUS: LEVON REQ #: [id number] RISHABH: 07/21/21 00:[address]: Josselin Monet DEPT: IMMUNOHISTOCHEMISTRY RECD BY: Scarlet Steiner ENTERED: 07/22/21 10:30 SP TYPE: IMMUNO OTHR DR: MD Dr. Jarrod Le MD Dr. Tamera Robotham, MD Lori Mullins, STENCIL MAKER-C Tissues: PARACENTESIS FLUID Procedures: NAPSIN A (add) Wilmer Ret (add) CK20 (add) CK5-6 (add) CK7 (add) CK8 (add) LANZA-2 (add) MACRO (add) NV (add) TTF1 (add) Vimentin (add) Pankeratin (add) P40 (add) CDX2 (add) ER (initial) PHYSICIAN & [place] [id number] SPECIMEN INFORMATION: Tissue Source: Paracentesis fluid Clinical Info: Ascites Specimen Number: [id number] CPT code: 50701, 21299 x14 METHODOLOGY: Deparaffinized sections of prefer/formalin-fixed tissue or PAP/DQ stained slides are incubated with monoclonal/polyclonal antibodies/oligonucleotide probes. Localization is made via biotin free immunoperoxidase method. Appropriate controls are performed and reacted as expected. Results on target cell population are indicated in the following table: RESULTS: ANTIBODY / CLONE RESULT ER (6F11) negative NV (1E2) negative AE1-3 (AE1/AE3/PCK26) positive CK7 (OV-TL12/30) negative CK8 (30nlvnR05) positive CK20 (KS20.8) positive LANZA-2 (SP21) positive CDX2 ([id number]) negative Vimentin (V9) negative Macro (HAM-56) negative TTF-1 (8G7G3/1) negative Napsin A (Rabbit Polyclonal) negative CALRET (polyclonal) negative CK5-6 (D5 & 1684) negative P40 (BC28) negative These tests were developed and their performance characteristics determined by [facility]. They may not have been cleared or approved by the U.S. Food and Drug Administration. The FDA has determined that such clearance or approval is not necessary. The above immunohistochemical/dualISH markers are ordered and reviewed by the Pathologist. INTERPRETATION: Paracentesis fluid (cell block): Malignant cells present derived from non-small cell carcinoma, consistent with colonic primary. SJ:twan 07/25/2021
[2021-07-21] MEDS: HYDROmorphone 1 MG/ML Syringe IV ×7 (02:42→21:04)
[2021-07-21 05:36] LABS: Basophil# 0.02 X10^3/uL; Basophil% 0.1 % (0-1); Eosinophil# 0.04 X10^3/uL; Eosinophils% 0.2 % (0-5); Hematocrit 38.8 % (37-47); Hemoglobin 12.3 g/dL (12.0-15.0); Lymphocyte % 3.4 % (19-41); Mean Corp Hgb Conc 31.7 g/dL (32-36); Mean Corpuscular Hgb 27.3 pg (27.0-32.0); Mean Platelet Vol. 10.4 fl (6.2-12.0); Monocyte# 1.41 X10^3/uL; Monocyte% 6.9 % (0-10); NRBC Flagged by Analyzer 0 % (0-5); Neutrophil % 88.5 % (47-70); Platelet Count 229 K/mm3 (150-450); RBC Distribution Width CV 13.9 % (11.6-14.6); RBC Distribution Width SD 43.7 fl (35.1-43.9); Red Blood Count 4.51 M/mm3 (4.2-5.4); White Blood Count 20.4 K/mm3 (4.4-11.0)
[2021-07-21] MEDS: Calcium Carbonate 500 MG Tablet PO ×3 (05:37→18:02)
[2021-07-21] MEDS: Dicyclomine 10 MG Capsule PO ×3 (05:37→21:05)
[2021-07-21 05:57] LABS: ALB/GLOB Ratio 0.5 RATIO (0.9-2.4); AST(SGOT) 20 U/L (15-37); Alanine Aminotransfer ALT/SGPT 19 U/L (13-56); Albumin, Serum 2.1 g/dL (3.2-5.0); Alkaline Phosphatase 60 U/L (45-117); Anion Gap 9 (5-15); BUN 12 mg/dL (7-18); BUN/Creat Ratio 14.2 RATIO (10-20); Calcium,Total 8.6 mg/dL (8.5-10.1); Chloride 103 mmol/L (98-107); Creatinine, Serum 0.84 mg/dL (0.55-1.02); EST Glomerular Filtration Rate 76 mL/min (>60); Est Glom Filt Rate - Afr Amer 91 mL/min (>60); Estimated Creatinine Clearance 69.19 ml/min; Globulin 4.3 g/dL (2.2-4.2); Glucose 112 mg/dL (74-106); Potassium 4.2 mmol/L (3.5-5.1); Protein, Total 6.4 g/dL (6.4-8.2); Sodium Level 134 mmol/L (136-145)
--- NOTE | 2021-07-21 07:03 | CON.PCM.SX_ITS ---
Assessment & Plan Assessment/Plan (1) Ascites: QUALIFIERS: Ascites type: malignant Qualified Code(s): R18.0 - Malignant ascites (2) Colon cancer: PLAN: Discussed with patient that would not recommend surgery for biopsy as she would likely leak ascites from the incisions which would not heal. Reviewed patient's CT abdomen pelvis with the patient no obvious signs of obstruction currently, thus I would not have any plans for a colectomy. Patient may be candidate for HIPEC, depending on cytology-- but we don't have that capab ility here. Did discuss with radiology as there is a misunderstanding about the reason for paracentesis initially was thought to be therapeutic and not diagnostic. Radiologist states that he would be able to do a paracentesis today for diagnostic. Did discuss with patient likely she will be needing a port placement in the future. Patient states she knows quite a bit about ports as her daughter had one. I have discussed above with the patient- Port-a-Cath placement. Patient has been counseled as to the risks/benefits of the procedure. I have explained the risks of the surgery, including but not limited to: infection, bleeding, injury to any blood vessels/nerves, injury to lungs (such as pneumothorax or hemothorax and need for chest tube), not having any access, nonfunctioning of port due to thrombosis, infection of port, etc. the patient understands and agrees to proceed. I have answered all the patient's questions to the patient?s satisfaction and the patient has no further questions. We will plan to place the port as an outpatient if patient does get DC'd home. Dr. Joyner will be covering this weekend and early next week. Patient needs a port prior to me getting back of next week Dr. Joyner would be able to address. Otherwise we will plan for an outpatient port placement while patient call the office to get scheduled. Blanca Mcguire M.D. Pager: [phone] [facility] [address] [place] [address], [facility], [address] [place], [place] [id number] Office: [phone] HPI Consult Data Date of Consult: 07/21/21 HPI Narrative HPI Narrative: YENY CERON, is a 50 F who presents to the ER due to epigastric abdominal pain. Patient is well-known to me. Melindaers patient prior was previously hospitalized in June for pancreatitis and did have some sludge in her gallbladder thus laparoscopic cholecystectomy was done. Postoperatively patient states that her abdominal pain did improve initially and then even worse so in the postoperative period did order a CT abdomen pelvis which showed likely colitis of the terminal ileum/cecum which was little more involved than her previous CAT scan showed in May. Patient did have colonoscopy with Dr. Morfin showed questionable colitis from the hepatic flexure to the cecum?biopsies of this area showed poorly differentiated adenocarcinoma. Repeat CT abdomen pelvis from ER admission showed ascites and possible carcinomatosis. Patient ultrasound for possible paracentesis was told initially should not have enough fluid so this was not done yesterday. Consulted for possible biopsy/surgery. Patient states she continued to have this epigastric discomfort never really got any better except for the 1st day after surgery for the laparoscopic cholecystectomy. Patient has been having bowel movements denies any flatus, CT abdomen pelvis did not show any signs of obstruction currently. REPLACED BY [facility] Medical History (Updated 07/20/21 @ 17:[address] Nam Friend, DO) Abnormal CT scan Anxiety Anxiety and depression Back pain Chronic cough Colon cancer Depression DVT (deep venous thrombosis) Former tobacco use Gastric reflux GERD (gastroesophageal reflux disease) History of steroid therapy Left leg pain Migraine headache Morbid obesity Post-menopausal Shortness of breath on exertion Wears dentures Wears glasses Home Medications buspirone 10 mg PO BID 06/13/21 [History Last Taken 06/11/21] escitalopram oxalate 20 mg PO DAILY 06/13/21 [History Last Taken 06/11/21] hyoscyamine sulfate [Levbid] 0.375 mg PO Q8H PRN 06/13/21 [History Last Taken 06/13/21] pantoprazole 40 mg PO DAILY #30 tab 06/16/21 [Rx Last Taken Unknown] dicyclomine 10 mg capsule 10 mg PO TID #90 cap 07/01/21 [Rx Last Taken Unknown] prednisone 40 mg PO DAILY 07/12/21 [History Last Taken Unknown] metronidazole 375 mg capsule 500 mg PO Q8H #42 cap 07/13/21 [Rx Last Taken Unknown] ondansetron 4 mg PO Q8H PRN PRN #10 tab 07/15/21 [Rx Last Taken Unknown] amoxicillin-pot clavulanate 875 mg PO Q12H #20 tablet 07/18/21 [Rx Last Taken Unknown] hydrocodone-acetaminophen 5-325mg 5mg-325mg 1 tab PO Q6H PRN PRN 3 Days #10 tab let 07/18/21 [Rx Last Taken Unknown] ondansetron 4 mg PO Q8H PRN PRN #10 tab 07/18/21 [Rx Last Taken Unknown] Allergy/AdvReac Type Severity Reaction Status Date / Time No Known Allergies Allergy Verified 07/17/21 18:29 Family History Father Diabetes Mother Hypertension Brother Hypertension Surgical History History of cholecystectomy (~06/2021) S/P section S/P rotator cuff repair Social History household members: family Smoking Status: Former smoker how long ago did patient quit smoking: Quit 2 years prior, smoked 1/2 ppd since she was a teenager until quitting. alcohol intake: never substance use type: does not use ROS Constitutional Constitutional: Denies fatigue ENT HEENT: Denies dysphagia Cardiovascular Cardiovascular: Denies chest pain or diaphoresis Respiratory/Chest Respiratory/Chest: Denies cough or dyspnea Gastrointestinal Gastrointestinal: Reports abdominal pain, anorexia and bloating; Denies const ipation Genitourinary Genitourinary: Denies change in urinary stream Musculoskeletal Musculoskeletal: Denies abnormal gait Integumentary Integumentary: Denies dry skin or erythema Neurologic Neurologic: Denies abnormal speech or confusion Psychiatric Psychiatric: Denies anxiety or depression Endocrine Endocrinology: Denies cold intolerance Hematologic/Lymphatic Hematologic/Lymphatic: Denies easy bleeding or easy bruising Physical Exam Const alert, oriented x3 and no apparent distress HEENT normocephalic and head/scalp atraumatic Resp normal respiratory effort Cardio regular rate GI soft to palpation Inspection: abdominal distention and incision other (Well-healed) Palpation: tender epigastric and RUQ; Negative for guarding Extremity no clubbing, cyanosis or edema Neuro CN's II-XII intact bilaterally Psych mental status grossly normal Medical Records Data Medical Nutrition Assessment Dietitian: Malnutrition Criteria Met Start: 07/19/21 12:56 Freq: Status: Active Protocol: Document 07/19/21 12:56 AG (Rec: 07/19/21 12:56 [id number]) Nutrition Malnutrition Evidence of Malnutrition Exists Yes Malnutrition (severe): Acute Illness/Injury Evidenced By Suboptimal Energy Intake ( Severe),Weight Loss (Severe) Clinical Problem Acute Disease or Injury Related Malnutrition Etiology severe, acute malnutrition r/t inadequate energy intake d/t GI dysfunction, new dx of colon cancer Signs/Symptoms as evidenced by unintentional wt loss of 19.1#/7% x 1 month, estimated PO intake meeting < 50% of estimated nutritional needs x1 month 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 Recommend nutrition support if unable to resume PO diet- will provide additional recommendations as indicated. Lab / Micro Data Result Diagrams: 07/21/21 05:24 07/21/21 05:24 Labs: Laboratory Results - last 24 hr 07/19/21 01:55: Carcinoembryonic Ag 6.3 H 07/21/21 05:24: WBC 20.4 H, RBC 4.51, Hgb 12.3, Hct 38.8, MCV 86.0 D, MCH 27.3, MCHC 31.7 L D, RDW Std Deviation 43.7, RDW Coeff of Mohsen 13.9, Plt Count 229, MPV 10.4, Immature Gran % (Auto) 0.900, Neut % (Auto) 88.5 H, Lymph % (Auto) 3.4 L, Barton % (Auto) 6.9, Eos % (Auto) 0.2, Baso % (Auto) 0.1, Absolute Neuts (auto) 18 .0 H, Absolute Lymphs (auto) 0.70 L, Nucleated RBC % 0 07/21/21 05:24: Sodium 134 L, Potassium 4.2, Chloride 103, Carbon Dioxide 22.0, Anion Gap 9, BUN 12, Creatinine 0.84, Estim Creat Clear Calc 69.19, Est GFR (MDRD) Af Amer 91, Est GFR (MDRD) Non-Af 76, BUN/Creatinine Ratio 14.2, Glucose 112 H, Calcium 8.6, Total Bilirubin 0.50, AST 20, ALT 19, Alkaline Phosphatase 60, Total Protein 6.4, Albumin 2.1 L, Globulin 4.3 H, Albumin/Globulin Ratio 0.5 L Radiology Impression KUB X-Ray 07/20/21 11:55 IMPRESSION: Oral contrast is seen within the colon. Nonspecific bowel gas pattern. Electronically Signed: Carlitos Roberts MD at 15:27 EST , Service support , Charges/Coding Visit Charges Inpatient E&M: 92197 Init Hosp L3
--- NOTE | 2021-07-21 07:32 | US_ITS ---
PROCEDURE: Ultrasound guided paracentesis. DATE OF EXAMINATION: 07/21/2021. INDICATION: Female, 50 years old. Ascites. PHYSICIAN: Carlitos Roberts M.D. TECHNIQUE: The risks, benefits, and alternatives to the procedure were explained to the patient. The specific risks of bleeding, infection, and damage to bowel were detailed and accepted. Witnessed informed consent was obtained. The abdomen was ultrasonographically surveyed. An appropriate pocket of fluid was identified at the right lower quadrant. The skin were cleaned and prepped in the usual sterile fashion. Using ultrasound guidance, the peritoneal cavity was accessed with a 5-Vietnamese paracentesis needle/catheter system. The trocar was removed. A total of 2300 ml of hamper color flow were removed from the peritoneal cavity. The catheter was removed and a sterile dressing was applied. A 100 mL sample was sent to the laboratory. The procedure was well tolerated. US/Paracentesis with US IMPRESSION: Ultrasound guided paracentesis. Electronically Signed: Carlitos Roberts MD at 10:52 EST , Service support ,
[2021-07-21] MEDS: 0.9% Saline Lock 10 ML Syringe IV ×5 (08:32→21:04)
[2021-07-21] MEDS: Ensure Clear 120 ML Liquid PO ×2 (08:32→13:30)
[2021-07-21] MEDS: busPIRone 5 MG Tablet 10 MG PO ×2 (08:35→21:05)
[2021-07-21] MEDS: Amox/Clavulanate 875 MG Tablet PO ×2 (08:35→21:05)
[2021-07-21] MEDS: Escitalopram Oxalate 20 MG Tablet PO (08:35)
--- NOTE | 2021-07-21 09:30 | FLU_PTH ---
PATIENT: YENY CERON LOC: [facility] U#:[id number] AGE/SX: 50/F ROOM: [facility] RE07/19/[address]: Dr. David Pickering DO : 1970 BED: 1 DIS: 07/26/2021 SPEC #: [id number] RECD: 07/21/21 12:00 STATUS: LEVON REMayda #: [id number] RISHABH: 07/21/21 09:[address]: Josselin Monet DEPT: CYTOLOGY RECD BY: Emily Walsh ENTERED: 07/21/21 12:35 SP TYPE: Fluid OTHR DR: MD Dr. Jarrod Le MD Dr. Tamera Robotham, MD Lori Mullins, LIZABETH-Alma Tissues: PARACENTESIS FLUID Procedures: Special Stain Group II Surgery Specimen Level IV Cytospin Fluid HEADER OPERATION: Paracentesis PRE-OP DIAGNOSIS: Ascites TISSUE SUBMITTED: Paracentesis fluid for cytology DIAGNOSIS CYTOLOGY Paracentesis fluid for cytology (cytospin and cell block): Malignant cells present derived from non-small cell carcinoma, favor adenocarcinoma, consistent with colonic primary. See comment. AVA:twan 07/22/2021 COMMENT Immunohistochemistry ([id number]) supports the above diagnosis. Please make reference to previous specimen ([id number]) colonic polyp at hepatic flexure with diagnosis of ?poorly differentiated adenocarcinoma? and ascending colon, biopsy with diagnosis of ?poorly differentiated adenocarcinoma? and cecum, biopsy with diagnosis of ?poorly differentiated adenocarcinoma.? CYTOLOGY STUDY Slides are reviewed. CYTOLOGY GROSS Received is 80 ml of red cloudy fluid labeled with the patient's name and and designated per the requisition as paracentesis. Submitted for cytology preparation including cell block. / twan 07/21/2021 TC:0 CPT: 75178, 97767
[2021-07-21] MEDS: Lidocaine 2% (20 ml mdv) 20 ML Vial INFILT (09:43)
[2021-07-21 10:23] LABS: Cytology, Body Fluid / CSF SEE PATHOLOGY REPORT
[2021-07-21 10:51] LABS: Body Fluid Mononuclear WBC # 1.242 10^3/uL; Body Fluid Polynuclear WBC # 0.483 10^3/uL; Body Fluid Total Cells Counted 1.733 10^3/ul; Red Cell Count/Body Fluid 0.006 10^6/ul; White Blood Count/Body Fluid 1.725 10^3/uL
[2021-07-21 10:55] LABS: Auto B Fluid Analyzer BKGD Ct COUNTS W/IN LIMITS (W/IN LIMITS); Source- Body Fluid ASCITES FLUID
[2021-07-21 10:56] LABS: Appearance/Body Fluid SL CLDY; Color/Body Fluid LT YEL
[2021-07-21] MEDS: oxyCODONE HCl Cr 10 MG Tablet PO ×2 (11:15→22:56)
[2021-07-21 11:26] LABS: Lymphocytes 35 %; Monocytes 12 %; Neutrophil (Segs) 53 %
[2021-07-21 11:27] LABS: Body Fluid QC Type(s) BFQC2
[2021-07-21 13:12] LABS: Glucose, Body Fluid 75 mg/dL (40-70); LDH,Body Fluid 401 Units/l (Not Establ.)
--- NOTE | 2021-07-21 14:21 | PCM.PN.HOSP ---
Subjective Subjective Follow-up on acute abdominal pain: Patient was seen and examined. She had diagnostic and therapeutic's paracentesis; 2300 mils of fluid were aspirated. She complains of severe abdominal pain. Objective Data Objective Data Vital Signs: Vital Signs Temp Pulse Resp BP Pulse Ox 98.0 F 113 H 18 150/82 H 96 07/21/21 11:30 07/21/21 11:30 07/21/21 11:30 07/21/21 11:30 07/21/21 11:30 Oxygen Flow Rate (L/min) [2] 2 Oxygen Flow Rate (L/min) 2 Oxygen Delivery Method [2] Nasal Cannula Oxygen Delivery Method [1 ( Room Air Initial Baseline)] Oxygen Delivery Method Room Air Weight: 112.9 kg Body Mass Index (BMI) 42.7 Intake & Output: Intake and Output for Last 24 Hours 07/19/21 07/20/21 07/21/21 23:59 23:59 23:59 Intake Total 1999 3766.67 / 3766.67 400 / 400 Output Total 2300 / 2300 Balance 1999 3766.67 / 3766.67 -1900 / -1900 Medical Nutrition Assessment Dietitian: Malnutrition Criteria Met Start: 07/19/21 12:56 Freq: Status: Active Protocol: Document 07/19/21 12:56 (Rec: 07/19/21 12:56 [id number]) Nutrition Malnutrition Evidence of Malnutrition Exists Yes Malnutrition (severe): Acute Illness/Injury Evidenced By Suboptimal Energy Intake ( Severe),Weight Loss (Severe) Clinical Problem Acute Disease or Injury Related Malnutrition Etiology severe, acute malnutrition r/t inadequate energy intake d/t GI dysfunction, new dx of colon cancer Signs/Symptoms as evidenced by unintentional wt loss of 19.1#/7% x 1 month, estimated PO intake meeting < 50% of estimated nutritional needs x1 month 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 Recommend nutrition support if unable to resume PO diet- will provide additional recommendations as indicated. Lab / Micro Data Result Diagrams: 07/21/21 05:24 07/21/21 05:24 Labs: Laboratory Results - last 24 hr 07/21/21 05:24: WBC 20.4 H, RBC 4.51, Hgb 12.3, Hct 38.8, MCV 86.0 D, MCH 27.3, MCHC 31.7 L D, RDW Std Deviation 43.7, RDW Coeff of Mohsen 13.9, Plt Count 229, MPV 10.4, Immature Gran % (Auto) 0.900, Neut % (Auto) 88.5 H, Lymph % (Auto) 3.4 L, [place] % (Auto) 6.9, Eos % (Auto) 0.2, Baso % (Auto) 0.1, Absolute Neuts (auto) 18.0 H, Absolute Lymphs (auto) 0.70 L, Nucleated RBC % 0 07/21/21 05:24: Sodium 134 L, Potassium 4.2, Chloride 103, Carbon Dioxide 22.0, Anion Gap 9, BUN 12, Creatinine 0.84, Estim Creat Clear Calc 69.19, Est GFR (MDRD) Af Amer 91, Est GFR (MDRD) Non-Af 76, BUN/Creatinine Ratio 14.2, Glucose 112 H, Calcium 8.6, Total Bilirubin 0.50, AST 20, ALT 19, Alkaline Phosphatase 60, Total Protein 6.4, Albumin 2.1 L, Globulin 4.3 H, Albumin/Globulin Ratio 0.5 L 07/21/21 09:30: Fluid Glucose 75 H, Fluid LDH 401 07/21/21 09:30: Fluid Source ASCITES FLUID, Fluid Color LT YEL, Fluid Appearance SL CLDY, Fluid WBC 1.725, Fluid RBC 0.006, Fluid Tot Cell Count 1.733 H, Fld Polynuclear WBCs # 0.483, Fld Polynuclear WBCs % 28.0, Fluid Mononuclear WBCs 1.242, Fld Mononuclear WBCs % 72.0, Fluid Neutrophils 53, Fluid Lymphocytes 35, Fluid Monocytes 12, Fl Pathologist Comment May follow, Fluid Comment 2 SEE COMMENT Radiography Diagnostic Testing: Radiology Impression KUB X-Ray 07/20/21 11:55 IMPRESSION: Oral contrast is seen within the colon. Nonspecific bowel gas pattern. Electronically Signed: Carlitos Roberts MD at 15:27 EST , Service support , Paracentesis Ultrasound 07/21/21 07:32 IMPRESSION: Ultrasound guided paracentesis. Electronically Signed: Carlitos Roberts MD at 10:52 EST , Service support , Physical Exam Narrative Physical exam: General: Alert, Oriented x3, Cooperative, No apparent distress, Well developed HEENT: Atraumatic Oral: Moist Mucosa Neck: Supple Lungs: Clear to auscultation Cardiovascular: HS I+II, regular, no murmurs Abdomen: Bowel Sounds Present, Soft, generalised tenderness all over abdomen, no guarding or RBT Extremities: No edema Assessment & Plan Assessment/Plan (1) Colon cancer: QUALIFIERS: Colon location: overlapping sites Qualified Code(s): C18.8 - Malignant neoplasm of overlapping sites of colon PLAN: 1. Acute intractable abdominal pain secondary to colon CA, cecum, ascending colon and hepatic flexure Mesenteric nodules with ascites on CT Poorly differentiated adenocarcinoma from biopsies on 07/13/21 Start on OxyContin 10 mg p.o. twice daily, continue with IV Dilaudid 2. Ascites, newly diagnosed on CT, Status post paracentesis today, 2200 mils of fluid removed-fluid is yellow, slightly cloudy, has more than 1700 cells Oncology and GI ff 3. History of Crohn's disease, continue on Augmentin 4. Anxiety disorder, continue on Lexapro 5. DVT prophylaxis Lovenox subcu Charges/Coding Visit Charges Inpatient E&M: 45537 Subs Hosp L2
--- NOTE | 2021-07-21 17:53 | EX.PCM.PN.GI ---
Subjective Subjective Patient underwent therapeutic and diagnostic paracentesis. She is in a lot of pain after undergoing paracentesis. She had 2300 mL removed. Objective Data Objective Data Vital Signs: Vital Signs Temp Pulse Resp BP Pulse Ox 98.2 F 119 H 18 137/84 H 94 07/21/21 15:23 07/21/21 15:23 07/21/21 15:23 07/21/21 15:23 07/21/21 15:23 Oxygen Flow Rate (L/min) [2] 2 Oxygen Flow Rate (L/min) 2 Oxygen Delivery Method [2] Nasal Cannula Oxygen Delivery Method [1 ( Room Air Initial Baseline)] Oxygen Delivery Method Room Air Weight: 248 lb 14.43 oz Body Mass Index (BMI) 42.7 Intake & Output: Intake and Output for Last 24 Hours 07/19/21 07/20/21 07/21/21 23:59 23:59 23:59 Intake Total 1999 3766.67 / 3766.67 900 / 900 Output Total 2300 / 2300 Balance 1999 3766.67 / 3766.67 -1400 / -1400 Medical Nutrition Assessment Dietitian: Malnutrition Criteria Met Start: 07/19/21 12:56 Freq: Status: Active Protocol: Document 07/19/21 12:56 (Rec: 07/19/21 12:56 [id number]) Nutrition Malnutrition Evidence of Malnutrition Exists Yes Malnutrition (severe): Acute Illness/Injury Evidenced By Suboptimal Energy Intake ( Severe),Weight Loss (Severe) Clinical Problem Acute Disease or Injury Related Malnutrition Etiology severe, acute malnutrition r/t inadequate energy intake d/t GI dysfunction, new dx of colon cancer Signs/Symptoms as evidenced by unintentional wt loss of 19.1#/7% x 1 month, estimated PO intake meeting < 50% of estimated nutritional needs x1 month 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 Recommend nutrition support if unable to resume PO diet- will provide additional recommendations as indicated. Lab / Micro Data Result Diagrams: 07/21/21 05:24 07/21/21 05:24 Labs: Laboratory Results - last 24 hr 07/21/21 05:24: WBC 20.4 H, RBC 4.51, Hgb 12.3, Hct 38.8, MCV 86.0 D, MCH 27.3, MCHC 31.7 L D, RDW Std Deviation 43.7, RDW Coeff of Mohsen 13.9, Plt Count 229, MPV 10.4, Immature Gran % (Auto) 0.900, Neut % (Auto) 88.5 H, Lymph % (Auto) 3.4 L, [place] % (Auto) 6.9, Eos % (Auto) 0.2, Baso % (Auto) 0.1, Absolute Neuts (auto) 18.0 H, Absolute Lymphs (auto) 0.70 L, Nucleated RBC % 0 07/21/21 05:24: Sodium 134 L, Potassium 4.2, Chloride 103, Carbon Dioxide 22.0, Anion Gap 9, BUN 12, Creatinine 0.84, Estim Creat Clear Calc 69.19, Est GFR (MDRD) Af Amer 91, Est GFR (MDRD) Non-Af 76, BUN/Creatinine Ratio 14.2, Glucose 112 H, Calcium 8.6, Total Bilirubin 0.50, AST 20, ALT 19, Alkaline Phosphatase 60, Total Protein 6.4, Albumin 2.1 L, Globulin 4.3 H, Albumin/Globulin Ratio 0.5 L 07/21/21 09:30: Fluid Glucose 75 H, Fluid LDH 401 07/21/21 09:30: Fluid Source ASCITES FLUID, Fluid Color LT YEL, Fluid Appearance SL CLDY, Fluid WBC 1.725, Fluid RBC 0.006, Fluid Tot Cell Count 1.733 H, Fld Polynuclear WBCs # 0.483, Fld Polynuclear WBCs % 28.0, Fluid Mononuclear WBCs 1.242, Fld Mononuclear WBCs % 72.0, Fluid Neutrophils 53, Fluid Lymphocytes 35, Fluid Monocytes 12, Fl Pathologist Comment May follow, Fluid Comment 2 SEE COMMENT Radiography Diagnostic Testing: Radiology Impression Paracentesis Ultrasound 07/21/21 07:32 IMPRESSION: Ultrasound guided paracentesis. Electronically Signed: Carlitos Roberts MD at 10:52 EST , Service support , Physical Exam Const alert General Appearance: cooperative Orientation / Consciousness: oriented to person HEENT hearing grossly normal bilaterally Head and Scalp: normal to inspection Face and Sinus: face symmetric Nose: external nose normal Mouth: oral and palatal mucosa normal Eyes conjunctivae normal General Eye: normal appearance of both eyes Neck full ROM General: normal visual inspection Lymph Lymphatic: no lymphadenopathy noted Chest inspection of chest normal and palpation of chest normal Chest: symmetrical chest wall rise Resp normal respiratory effort Effort and Inspection: able to speak in complete sentences Cardio regular rate GI non-distended Percussion: normal to percussion Rectal Exam: deferred Neuro Speech: speech normal Gait (Neuro): normal gait Assessment & Plan Assessment/Plan (1) Ascites: QUALIFIERS: Ascites type: malignant Qualified Code(s): R18.0 - Malignant ascites PLAN: The ascitic fluid did not show any signs of SBP. This is not unusual because she is on antibiotic therapy and has been on antibiotic therapy. Cytology of the fluid is pending. (2) Colon cancer: PLAN: She was seen by surgery and because she is not obstructed at this time she was deemed not a surgical candidate. She will be getting a port placed for chemotherapy. She was started on OxyContin for abdominal pain. Hopefully when she is further staged with a PET or diagnostic lap she will not have any local or distant metastasis. Charges/Coding Visit Charges Inpatient E&M: 45720 Subs Hosp L2
[2021-07-22] VITALS (9 sets, daily range): BP systolic 129–157; BP diastolic 74–94; PULSE 76–118; RESP 16–18; TEMP 36.6–36.8; O2SAT 88–96
[2021-07-22] MEDS: Calcium Carbonate 500 MG Tablet PO ×2 (00:37→23:36)
[2021-07-22] MEDS: 0.9% Saline Lock 10 ML Syringe IV ×6 (00:37→23:42)
[2021-07-22] MEDS: HYDROmorphone 1 MG/ML Syringe IV ×5 (00:37→15:34)
--- NOTE | 2021-07-22 08:26 | PCM.PN.SRG ---
Subjective Subjective Patient reports abdominal pain after paracentesis yesterday Objective Data Objective Data Vital Signs: Vital Signs Temp Pulse Resp BP Pulse Ox 97.8 F 103 H 16 135/94 H 88 07/22/21 03:15 07/22/21 03:15 07/22/21 03:15 07/22/21 03:15 07/22/21 07:32 Oxygen Flow Rate (L/min) [2] 2 Oxygen Flow Rate (L/min) 2 Oxygen Delivery Method [2] Nasal Cannula Oxygen Delivery Method [1 ( Room Air Initial Baseline)] Oxygen Delivery Method Room Air Weight: 248 lb 14.43 oz Body Mass Index (BMI) 42.7 Intake & Output: Intake and Output for Last 24 Hours 07/20/21 07/21/21 07/22/21 23:59 23:59 23:59 Intake Total 3766.67 / 3766.67 1120 / 1120 Output Total 2300 / 2300 Balance 3766.67 / 3766.67 -1180 / -1180 Medical Nutrition Assessment Dietitian: Malnutrition Criteria Met Start: 07/19/21 12:56 Freq: Status: Active Protocol: Document 07/19/21 12:56 AG (Rec: 07/19/21 12:56 [id number]) Nutrition Malnutrition Evidence of Malnutrition Exists Yes Malnutrition (severe): Acute Illness/Injury Evidenced By Suboptimal Energy Intake ( Severe),Weight Loss (Severe) Clinical Problem Acute Disease or Injury Related Malnutrition Etiology severe, acute malnutrition r/t inadequate energy intake d/t GI dysfunction, new dx of colon cancer Signs/Symptoms as evidenced by unintentional wt loss of 19.1#/7% x 1 month, estimated PO intake meeting < 50% of estimated nutritional needs x1 month 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 Recommend nutrition support if unable to resume PO diet- will provide additional recommendations as indicated. Lab / Micro Data Result Diagrams: 07/21/21 05:24 07/21/21 05:24 Labs: Laboratory Results - last 24 hr 07/21/21 09:30: Fluid Glucose 75 H, Fluid LDH 401 07/21/21 09:30: Fluid Source ASCITES FLUID, Fluid Color LT YEL, Fluid Appearance SL CLDY, Fluid WBC 1.725, Fluid RBC 0.006, Fluid Tot Cell Count 1.733 H, Fld Polynuclear WBCs # 0.483, Fld Polynuclear WBCs % 28.0, Fluid Mononuclear WBCs 1.242, Fld Mononuclear WBCs % 72.0, Fluid Neutrophils 53, Fluid Lymphocytes 35, Fluid Monocytes 12, Fl Pathologist Comment May follow, Fluid Comment 2 SEE COMMENT Radiography Diagnostic Testing: Radiology Impression Paracentesis Ultrasound 07/21/21 07:32 IMPRESSION: Ultrasound guided paracentesis. Electronically Signed: Carlitos Roberts MD at 10:52 EST , Service support , Physical Exam Const no apparent distress Resp normal respiratory effort GI Inspection: abdominal distention Palpation: tender Assessment & Plan Assessment/Plan (1) Colon cancer: QUALIFIERS: Colon location: ascending Qualified Code(s): C18.2 - Malignant neoplasm of ascending colon PLAN: Patient was found to have colon cancer of the ascending colon and new onset ascites. Paracentesis was performed yesterday for cytology. Her last CT scan suggest carcinomatosis. Continue diet as tolerated and I will order cathartics as she has not had a bowel movement in several days and she is taking a lot of narcotics. I will be available place port if necessary before discharge for future therapy if oncology requested. Gabriel Joyner MD Pager: [facility] [address] [place] [address], [address] [place] [address] Office:
[2021-07-22] MEDS: Magnesium Citrate 300 ML 150 ML PO (09:26)
[2021-07-22 09:27] LABS: Absolute Lymphocyte Count 0.53 X10^3/uL (0.83-4.51); Absolute Neutrophil Count 18.2 X10^3/uL (2.0-7.7); Basophil# 0.02 X10^3/uL; Basophil% 0.1 % (0-1); Eosinophil# 0.17 X10^3/uL; Eosinophils% 0.8 % (0-5); Hematocrit 37.2 % (37-47); Hemoglobin 11.8 g/dL (12.0-15.0); Lymphocyte # 0.53 X10^3/ul (0.83-4.51); Lymphocyte % 2.6 % (19-41); Mean Corp Hgb Conc 31.7 g/dL (32-36); Mean Corpuscular Hgb 26.8 pg (27.0-32.0); Mean Corpuscular Volume 84.5 fL (81-99); Mean Platelet Vol. 10.9 fl (6.2-12.0); Monocyte# 1.26 X10^3/uL; Monocyte% 6.2 % (0-10); NRBC Flagged by Analyzer 0 % (0-5); Neutrophil # 18.22 X10^3/uL (2.7-7.7); Neutrophil % 89.5 % (47-70); POSITIVE DIFFERENTIAL YES; Platelet Count 244 K/mm3 (150-450); RBC Distribution Width CV 13.9 % (11.6-14.6); RBC Distribution Width SD 42.9 fl (35.1-43.9); White Blood Count 20.4 K/mm3 (4.4-11.0)
[2021-07-22] MEDS: Amox/Clavulanate 875 MG Tablet PO ×2 (09:28→22:09)
[2021-07-22] MEDS: Escitalopram Oxalate 20 MG Tablet PO (09:28)
[2021-07-22] MEDS: busPIRone 5 MG Tablet 10 MG PO ×2 (09:28→22:09)
[2021-07-22] MEDS: oxyCODONE HCl Cr 10 MG Tablet PO ×2 (09:28→22:09)
[2021-07-22] MEDS: Bisacodyl 10 MG Suppository RC (09:28)
[2021-07-22 09:33] LABS: Differential Indicated SCAN CRITERIA MET
[2021-07-22] MEDS: Enoxaparin 40 MG/0.4 ML Syringe SC (09:34)
[2021-07-22 10:45] LABS: ALB/GLOB Ratio 0.4 RATIO (0.9-2.4); AST(SGOT) 21 U/L (15-37); Alanine Aminotransfer ALT/SGPT 15 U/L (13-56); Albumin, Serum 1.8 g/dL (3.2-5.0); Alkaline Phosphatase 57 U/L (45-117); Anion Gap 8 (5-15); BUN 17 mg/dL (7-18); BUN/Creat Ratio 19.6 RATIO (10-20); Calcium,Total 9.2 mg/dL (8.5-10.1); Chloride 99 mmol/L (98-107); Creatinine, Serum 0.87 mg/dL (0.55-1.02); EST Glomerular Filtration Rate 73 mL/min (>60); Est Glom Filt Rate - Afr Amer 89 mL/min (>60); Globulin 4.4 g/dL (2.2-4.2); Glucose 97 mg/dL (74-106); Potassium 4.3 mmol/L (3.5-5.1); Protein, Total 6.2 g/dL (6.4-8.2); Sodium Level 133 mmol/L (136-145)
[2021-07-22] MEDS: Dicyclomine 10 MG Capsule PO ×2 (13:26→22:09)
[2021-07-22 14:11] LABS: Pathologist Comment/Body Fluid Reviewed
--- NOTE | 2021-07-22 17:58 | PN.HOSP_ITS ---
Subjective Subjective Follow-up on acute abdominal pain: Patient was seen and examined. Her pain is fairly controlled. She has been on IV Dilaudid [id number]. I advised that we would do more follow-up medications in preparation for going home. She denied any constipation. She has been having bowel movements. Objective Data Objective Data Vital Signs: Vital Signs Temp Pulse Resp BP Pulse Ox 98.3 F 100 18 146/86 H 94 07/22/21 15:30 07/22/21 15:30 07/22/21 15:30 07/22/21 15:30 07/22/21 15:30 Oxygen Flow Rate (L/min) [2] 2 Oxygen Flow Rate (L/min) 2 Oxygen Delivery Method [2] Nasal Cannula Oxygen Delivery Method [1 ( Room Air Initial Baseline)] Oxygen Delivery Method Nasal Cannula Weight: 112.9 kg Body Mass Index (BMI) 42.7 Intake & Output: Intake and Output for Last 24 Hours 07/20/21 07/21/21 07/22/21 23:59 23:59 23:59 Intake Total 3766.67 / 3766.67 1120 / 1120 1000 / 1000 Output Total 2300 / 2300 Balance 3766.67 / 3766.67 -1180 / -1180 1000 / 1000 Medical Nutrition Assessment Dietitian: Malnutrition Criteria Met Start: 07/19/21 12:56 Freq: Status: Active Protocol: Document 07/19/21 12:56 (Rec: 07/19/21 12:56 [id number]) Nutrition Malnutrition Evidence of Malnutrition Exists Yes Malnutrition (severe): Acute Illness/Injury Evidenced By Suboptimal Energy Intake ( Severe),Weight Loss (Severe) Clinical Problem Acute Disease or Injury Related Malnutrition Etiology severe, acute malnutrition r/t inadequate energy intake d/t GI dysfunction, new dx of colon cancer Signs/Symptoms as evidenced by unintentional wt loss of 19.1#/7% x 1 month, estimated PO intake meeting < 50% of estimated nutritional needs x1 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 Recommend nutrition support if unable to resume PO diet- will provide additional recommendations as indicated. Lab / Micro Data Result Diagrams: 07/22/21 09:05 07/22/21 10:08 Labs: Laboratory Results - last 24 hr 07/21/21 09:30: Fl Pathologist Comment Reviewed 07/22/21 09:05: WBC 20.4 H, RBC 4.40, Hgb 11.8 L, Hct 37.2, MCV 84.5, MCH 26.8 L , MCHC 31.7 L, RDW Std Deviation 42.9, RDW Coeff of Mohsen 13.9, Plt Count 244, MPV 10.9, Immature Gran % (Auto) 0.800, Neut % (Auto) 89.5 H, Lymph % (Auto) 2.6 L, [place] % (Auto) 6.2, Eos % (Auto) 0.8, Baso % (Auto) 0.1, Absolute Neuts (auto) 18.2 H, Absolute Lymphs (auto) 0.53 L, Nucleated RBC % 0 07/22/21 09:05: Sodium Cancelled, Potassium Cancelled, Chloride Cancelled, Carbon Dioxide Cancelled, Anion Gap Cancelled, BUN Cancelled, Creatinine Cancelled, Estim Creat Clear Calc Cancelled, Est GFR (MDRD) Af Amer Cancelled, Est GFR (MDRD) Non-Af Cancelled, BUN/Creatinine Ratio Cancelled, Glucose Cancelled, Calcium Cancelled, Total Bilirubin Cancelled, AST Cancelled, ALT Cancelled, Alkaline Phosphatase Cancelled, Total Protein Cancelled, Albumin Cancelled, Globulin Cancelled, Albumin/Globulin Ratio Cancelled 07/22/21 10:08: Sodium 133 L, Potassium 4.3, Chloride 99, Carbon Dioxide 26.0, Anion Gap 8, BUN 17, Creatinine 0.87, Estim Creat Clear Calc 66.80, Est GFR (MDRD) Af Amer 89, Est GFR (MDRD) Non-Af 73, BUN/Creatinine Ratio 19.6, Glucose 97, Calcium 9.2, Total Bilirubin 0.40, AST 21, ALT 15, Alkaline Phosphatase 57, Total Protein 6.2 L, Albumin 1.8 L, Globulin 4.4 H, Albumin/Globulin Ratio 0.4 L Physical Exam Narrative Physical exam: General: Alert, Oriented x3, Cooperative, No apparent distress, Well developed HEENT: Atraumatic Oral: Moist Mucosa Neck: Supple Lungs: Clear to auscultation Cardiovascular: HS I+II, regular, no murmurs Abdomen: Bowel Sounds Present, Soft, generalised tenderness all over abdomen, no guarding or RBT Extremities: No edema Assessment & Plan Assessment/Plan (1) Colon cancer: QUALIFIERS: Colon location: overlapping sites Qualified Code(s): C18.8 - Malignant neoplasm of overlapping sites of colon PLAN: 1. Acute intractable abdominal pain secondary to poorly differentiated colon CA, cecum, ascending colon and hepatic flexure Mesenteric nodules with ascites seen on CT Poorly differentiated adenocarcinoma from biopsies on 07/13/21 Start on OxyContin 10 mg p.o. twice daily, continue with as needed oxycodone in preparation for discharge 2. Ascites, newly diagnosed on CT, Status post paracentesis today, 2200 mls of fluid removed-fluid is yellow, slightly cloudy, has more than 1700 cells. Oncology and gastroenterology following 3. History of Crohn's disease, continue on Augmentin 4. Anxiety disorder, continue on Lexapro 5. DVT prophylaxis Lovenox subcu Charges/Coding Visit Charges Inpatient E&M: 02166 Subs Hosp L2
[2021-07-22] MEDS: oxyCODONE 5 MG Tablet PO (18:35)
--- NOTE | 2021-07-22 18:40 | RAD_ITS ---
INDICATION: Abdominal distension EXAMINATION/TECHNIQUE: X-RAY - XR Abdomen W/ Decub and/or Erect Views COMPARISON: Plain film examination of 07/20/2021, CT examination of 07/17/2021. FINDINGS: BOWEL GAS PATTERN: Nonspecific bowel gas pattern, mild fluid distention of large bowel segments with air-fluid levels noted however diluted contrast and fluid are noted extending to the level of the distal descending colon. Mild gaseous distention of small bowel segments in the right lower quadrant, pattern is nonspecific. No free air identified. No evidence of distention of the stomach. FREE AIR: Not assessed on a single supine view. ORGANOMEGALY: Not seen.. Surgical clips are present in the pelvis. CALCIFICATIONS: No abnormal calcifications observed. LOWER CHEST: No acute pathology. BONES AND SOFT TISSUES: No acute pathology. RAD/Abd Decub and/or Erect(Portabl IMPRESSION: 1. Scattered segments of mildly distended large bowel with diluted contrast and air-fluid levels noted however contrast is present level of the distal descending colon. No cherise bowel obstruction, however mild ileus is a consideration. No evidence of pneumatosis or free air. Electronically Signed: Elias Solis MD at 19:34 EST Tel , Service support ,
[2021-07-22] MEDS: Ondansetron 4 MG/2 ML Vial IV (23:41)
[2021-07-22] MEDS: Albuterol 2.5 MG/3 ML VIAL.NEB. INHALATION (23:50)
--- NOTE | 2021-07-22 23:51 | CPS ---
patient recieved prn treatment due to sob, wheeze.
[2021-07-23] VITALS (7 sets, daily range): BP systolic 130–141; BP diastolic 68–83; PULSE 86–112; RESP 18–19; TEMP 36.1–36.9; O2SAT 92–96
[2021-07-23] MEDS: oxyCODONE 5 MG Tablet PO ×2 (01:37→13:11)
[2021-07-23] MEDS: Calcium Carbonate 500 MG Tablet PO ×4 (05:51→21:06)
[2021-07-23] MEDS: Dicyclomine 10 MG Capsule PO ×3 (05:51→21:05)
[2021-07-23] MEDS: busPIRone 5 MG Tablet 10 MG PO ×2 (09:14→21:05)
[2021-07-23] MEDS: Amox/Clavulanate 875 MG Tablet PO ×2 (09:14→21:06)
[2021-07-23] MEDS: Escitalopram Oxalate 20 MG Tablet PO (09:15)
[2021-07-23] MEDS: Enoxaparin 40 MG/0.4 ML Syringe SC (09:16)
[2021-07-23] MEDS: oxyCODONE HCl Cr 10 MG Tablet PO (09:21)
--- NOTE | 2021-07-23 10:03 | PCM.PN.SRG ---
Subjective Subjective Patient is still not passing any flatus but she did have a small bowel movement yesterday. She still feels bloated. Objective Data Objective Data Vital Signs: Vital Signs Temp Pulse Resp BP Pulse Ox 97.7 F L 96 18 141/83 H 95 07/23/21 05:54 07/23/21 05:54 07/23/21 05:54 07/23/21 05:54 07/23/21 05:54 Oxygen Flow Rate (L/min) [2] 2 Oxygen Flow Rate (L/min) 2 Oxygen Delivery Method [2] Nasal Cannula Oxygen Delivery Method [1 ( Room Air Initial Baseline)] Oxygen Delivery Method Nasal Cannula Weight: 248 lb 14.43 oz Body Mass Index (BMI) 42.7 Intake & Output: Intake and Output for Last 24 Hours 07/21/21 07/22/21 07/23/21 23:59 23:59 23:59 Intake Total 1120 / 1120 1380 / 1380 120 / 120 Output Total 2300 / 2300 Balance -1180 / -1180 1380 / 1380 120 / 120 Medical Nutrition Assessment Dietitian: Malnutrition Criteria Met Start: 07/19/21 12:56 Freq: Status: Active Protocol: Document 07/19/21 12:56 (Rec: 07/19/21 12:56 [id number]) Nutrition Malnutrition Evidence of Malnutrition Exists Yes Malnutrition (severe): Acute Illness/Injury Evidenced By Suboptimal Energy Intake ( Severe),Weight Loss (Severe) Clinical Problem Acute Disease or Injury Related Malnutrition Etiology severe, acute malnutrition r/t inadequate energy intake d/t GI dysfunction, new dx of colon cancer Signs/Symptoms as evidenced by unintentional wt loss of 19.1#/7% x 1 month, estimated PO intake meeting < 50% of estimated nutritional needs 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 Recommend nutrition support if unable to resume PO diet- will provide additional recommendations as indicated. Lab / Micro Data Result Diagrams: 07/22/21 09:05 07/22/21 10:08 Labs: Laboratory Results - last 24 hr 07/21/21 09:30: Fl Pathologist Comment Reviewed 07/22/21 10:08: Sodium 133 L, Potassium 4.3, Chloride 99, Carbon Dioxide 26.0, Anion Gap 8, BUN 17, Creatinine 0.87, Estim Creat Clear Calc 66.80, Est GFR (MDRD) Af Amer 89, Est GFR (MDRD) Non-Af 73, BUN/Creatinine Ratio 19.6, Glucose 97, Calcium 9.2, Total Bilirubin 0.40, AST 21, ALT 15, Alkaline Phosphatase 57, Total Protein 6.2 L, Albumin 1.8 L, Globulin 4.4 H, Albumin/Globulin Ratio 0.4 L Radiography Diagnostic Testing: Radiology Impression Abdomen X-Ray 07/22/21 18:40 IMPRESSION: 1. Scattered segments of mildly distended large bowel with diluted contrast and air-fluid levels noted however contrast is present level of the distal descending colon. No cherise bowel obstruction, however mild ileus is a consideration. No evidence of pneumatosis or free air. Electronically Signed: Elias Solis MD at 19:34 EST Tel , Service support , Physical Exam Const oriented x3 and no apparent distress Resp normal respiratory effort GI soft to palpation Inspection: abdominal distention Assessment & Plan Assessment/Plan (1) Colon cancer: QUALIFIERS: Colon location: ascending Qualified Code(s): C18.2 - Malignant neoplasm of ascending colon PLAN: Patient had cytology that was positive from her paracentesis. Oncology is recommending port placement. I discussed port placement with her in detail this morning. I discussed the risks including modality to bleeding, infection, injury to other organs, pneumothorax. Patient understands the risks and is when to proceed. Plan for port placement on Sunday. Gabriel Joyner MD Pager: [facility] [address] [place] [address], [address] [place] [address] Office:
--- NOTE | 2021-07-23 11:31 | PN.ONC_ITS ---
Subjective Subjective Upon entering the room the patient is sitting upright in bedside chair. Admits abdominal pain and dyspnea were improved immediately after paracentesis on however notes pain intensity seems to be worsening and bloating increasing today. Subjectively reports she has not passed gas however was able to produce a BM earlier this morning. Able to take p.o. water and Sprite without nausea. Reports good support system at home by way of mom and 13-year-old son. Physical Exam Const alert and oriented x3 HEENT normocephalic Eyes PERRL and conjunctivae normal; Negative for no scleral icterus Eyes Narrative: wears glasses Neck No no lymphadenopathy and supple Lymph Lymphatic: Negative for no lymphadenopathy noted Chest inspection of chest normal Resp normal respiratory effort and clear to auscultation bilaterally Cardio regular rate, regular rhythm, S1 normal heart sound and S2 normal heart sound GI GI Narrative: diffuse tenderness. Distended, bowel sounds present x4 Palpation: firm Groin / Perineum Exam: Negative for hernia Extremity normal to inspection and no clubbing, cyanosis or edema Skin Skin Narrative: 1 area of ecchymosis limited to right upper extremity, otherwise no bruising or petechiae General Skin Exam: ecchymosis; Negative for jaundice Neuro CN's II-XII intact bilaterally, moves all extremities and no focal motor deficits Psych mental status grossly normal and affect normal Vital Signs Temperature 98.4 F 07/23/21 10:33 Temperature Source Oral 07/23/21 10:33 Pulse Rate 86 07/23/21 10:33 Respiratory Rate 19 H 07/23/21 10:33 Respiratory Effort Non-Labored 07/23/21 01:11 Respiratory Depth Normal 07/23/21 01:11 Respiratory Pattern Normal 07/23/21 01:11 Blood Pressure 130/82 H 07/23/21 10:33 Blood Pressure Mean 98 07/23/21 10:33 Blood Pressure Source Monitor 07/23/21 10:33 Blood Pressure Position Semi-Fowlers 07/23/21 10:33 Blood Pressure Location Right Arm 07/23/21 10:33 Pulse Ox 92 07/23/21 10:33 Oxygen Delivery Method Room Air 07/23/21 10:33 Oxygen Flow Rate (L/min) 2 07/23/21 05:54 Laboratory Results - last 24 hr 07/21/21 09:30: Fl Pathologist Comment Reviewed Diagnostic Data Abdomen Ultrasound 07/19/21 07:19 IMPRESSION: Not enough fluid for safe paracentesis. Electronically Signed: Carlitos Roberts MD at 14:52 EST , Service support , KUB X-Ray 07/20/21 11:55 IMPRESSION: Oral contrast is seen within the colon. Nonspecific bowel gas pattern. Electronically Signed: Carlitos Roberts MD at 15:27 EST , Service support , Paracentesis Ultrasound 07/21/21 07:32 IMPRESSION: Ultrasound guided paracentesis. Electronically Signed: Carlitos Roberts MD at 10:52 EST , Service support , Abdomen X-Ray 07/22/21 18:40 IMPRESSION: 1. Scattered segments of mildly distended large bowel with diluted contrast and air-fluid levels noted however contrast is present level of the distal descending colon. No cherise bowel obstruction, however mild ileus is a consideration. No evidence of pneumatosis or free air. Electronically Signed: Elias Solis MD at 19:34 EST Tel , Service support , 07/21/21 Specimen #[id number] paracentesis fluid for cytology: Report indicates Malignant cells present derived from non-small cell carcinoma, favor adenocarcinoma consistent with colonic primary Assessment & Plan Assessment/Plan (1) Colon cancer: QUALIFIERS: Colon location: ascending Qualified Code(s): C18.2 - Malignant neoplasm of ascending colon (2) Malignant ascites: (3) At high risk for deep venous thrombosis: PLAN: Ms. Mónica James is a very pleasant 50-year-old woman who was diagnosed on 07/13/2021 with poorly differentiated adenocarcinoma involving the cecum, ascending colon and hepatic flexure after undergoing EGD and colonoscopy in the outpatient setting under the care of Dr. Morfin. She developed ascites and presented to [facility] emergency department on 07/18/2021 with complaints of intractable abdominal pain. She subsequently underwent therapeutic and diagnostic paracentesis on 07/21/2021, cytology of which confirmed the presence of malignant cells favoring adenocarcinoma consistent with colonic primary. 1. Colon cancer?metastatic with peritoneal carcinomatosis, malignant ascites. I reviewed cytology report with the patient. Labs were also reviewed with the patient, shows mild normocytic anemia as evidenced by hemoglobin 11.8 no other cytopenias LFTs and creatinine are within normal limits at this time. Baseline CEA has already been obtained. For thorough staging,orders placed for CT chest with contrast. Will also need additional studies done on original path from 07/13/2021 including EGFR status- these will be requested in the office. 2. Malignant ascites?I explained to the patient that prior to initiating systemic chemotherapy, the fluid in her abdomen may reaccumulate and may necess itate a conversation about a second therapeutic paracentesis. Recommend daily weights. 3. High risk for DVT?continue subcu Lovenox prophylactically. I stressed the importance to the patient of ambulating in her room as much as possible. From an oncology perspective, would like to initiate systemic chemotherapy with a fluorouracil based regimen as soon as possible in the outpatient setting. She will need a PowerPort placed if that can be done during this admission and if not in the outpatient setting early next week. Patient to follow up with [facility] upon discharge. Case discussed with Dr. Schwarz who was in agreement with aforementioned plan. Suzi Coello, DNP, AIR POLLUTION COMPLIANCE INSPECTOR, AOCNP
--- NOTE | 2021-07-23 11:54 | CT_ITS ---
STUDY: CT CHEST WITH CONTRAST REASON FOR EXAM: Female, 50 years old. colon ca, initial staging RADIATION DOSAGE (If Supplied By Facility): CTDIvol = ( 12.41 ) mGy, DLP = ( 552.66 ) mGycm TECHNIQUE: Transaxial imaging was performed following intravenous administration of IV 100mL Isovue-370. Multiplanar coronal and sagittal images were reformatted. Individualized dose optimization techniques were used for this CT. COMPARISON: None. FINDINGS: Moderate bilateral pleural effusions with compressive atelectasis in the lower lobes. No discrete pulmonary nodule in the aerated lung. Normal heart and pericardium. Moderate adenopathy of the middle and superior mediastinum as well as the bilateral parisa. For instance, Station 7 lymph node measures 2.3 x 3.4 cm. Prevascular/preaortic lymph node measures 1.3 x 1.7 cm. Upper paratracheal lymph node measures 1.7 x 2.3 cm. Normal enhanced pulmonary arteries. Normal aorta arch and descending thoracic aorta. No destructive bony process. Mild ascites of the upper abdomen partially visualized. Fatty infiltration of the liver. CT/Chest WITH Contrast IMPRESSION: 1. Mediastinal and bilateral hilar adenopathy, suspicious for neoplasm/metastasis. 2. Moderate bilateral pleural effusions with lower lobe atelectasis. 3. Mild ascites of the upper abdomen partially visualized. Electronically Signed: Riccardo Green MD (Bro[facility]) at 22:32 EST , Service support ,
--- NOTE | 2021-07-23 15:25 | PN.HOSP_ITS ---
Subjective Subjective Follow-up on acute abdominal pain: Patient was seen and examined. She complains of abdominal pain. She has had some bowel movement but not much. Objective Data Objective Data Vital Signs: Vital Signs Temp Pulse Resp BP Pulse Ox 98.4 F 86 19 H 130/82 H 93 07/23/21 10:33 07/23/21 10:33 07/23/21 10:33 07/23/21 10:33 07/23/21 11:53 Oxygen Flow Rate (L/min) [2] 2 Oxygen Flow Rate (L/min) 2 Oxygen Delivery Method [2] Nasal Cannula Oxygen Delivery Method [1 ( Room Air Initial Baseline)] Oxygen Delivery Method Room Air Weight: 112.9 kg Body Mass Index (BMI) 42.7 Intake & Output: Intake and Output for Last 24 Hours 07/21/21 07/22/21 07/23/21 23:59 23:59 23:59 Intake Total 1120 / 1120 1380 / 1380 570 / 570 Output Total 2300 / 2300 Balance -1180 / -1180 1380 / 1380 570 / 570 Medical Nutrition Assessment Dietitian: Malnutrition Criteria Met Start: 07/19/21 12:56 Freq: Status: Active Protocol: Document 07/19/21 12:56 AG (Rec: 07/19/21 12:56 [id number]) Nutrition Malnutrition Evidence of Malnutrition Exists Yes Malnutrition (severe): Acute Illness/Injury Evidenced By Suboptimal Energy Intake ( Severe),Weight Loss (Severe) Clinical Problem Acute Disease or Injury Related Malnutrition Etiology severe, acute malnutrition r/t inadequate energy intake d/t GI dysfunction, new dx of colon cancer Signs/Symptoms as evidenced by unintentional wt loss of 19.1#/7% x 1 month, estimated PO intake meeting < 50% of estimated nutritional needs x1 month 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 Recommend nutrition support if unable to resume PO diet- will provide additional recommendations as indicated. Lab / Micro Data Result Diagrams: 07/22/21 09:05 07/22/21 10:08 Radiography Diagnostic Testing: Radiology Impression Abdomen X-Ray 07/22/21 18:40 IMPRESSION: 1. Scattered segments of mildly distended large bowel with diluted contrast and air-fluid levels noted however contrast is present level of the distal descending colon. No cherise bowel obstruction, however mild ileus is a consideration. No evidence of pneumatosis or free air. Electronically Signed: Elias Solis MD at 19:34 EST Tel , Service support , Physical Exam Narrative Physical exam: General: Alert, Oriented x3, Cooperative, No apparent distress, Well developed HEENT: Atraumatic Oral: Moist Mucosa Neck: Supple Lungs: Clear to auscultation Cardiovascular: HS I+II, regular, no murmurs Abdomen: Distended, Bowel Sounds Present, Soft, generalised tenderness all over abdomen, no guarding or RBT Extremities: No edema Assessment & Plan Assessment/Plan (1) Colon cancer: QUALIFIERS: Colon location: overlapping sites Qualified Code(s): C18.8 - Malignant neoplasm of overlapping sites of colon PLAN: 1. Acute intractable abdominal pain secondary to poorly differentiated colon CA- cecum, ascending colon and hepatic flexure Mesenteric nodules with ascites seen on CT Poorly differentiated adenocarcinoma from biopsies on 07/13/21 Increase OxyContin 15 mg p.o. twice daily, continue with as needed oxycodone 10mg Q4, stool softners 2. Ascites, newly diagnosed on CT, Status post paracentesis today, 2200 mls of fluid removed-fluid is yellow, slightly cloudy, has more than 1700 cells. Oncology and gastroenterology following 3. History of Crohn's disease, continue on Augmentin 4. Anxiety disorder, continue on Lexapro 5. DVT prophylaxis Lovenox subcu Charges/Coding Visit Charges Inpatient E&M: 14359 Subs Hosp L2
[2021-07-23] MEDS: Bisacodyl 10 MG Suppository RC (16:14)
[2021-07-23] MEDS: oxyCODONE 5 MG Tablet 10 MG PO (17:32)
[2021-07-23] MEDS: oxyCODONE CR 15 MG Tablet PO (21:05)
[2021-07-24] MEDS: oxyCODONE 5 MG Tablet 10 MG PO ×3 (01:36→13:47)
[2021-07-24 03:00] VITALS: BP 148/77; PULSE 102; RESP 18; TEMP 36.5; O2SAT 95
[2021-07-24 03:23] VITALS: PULSE 103; RESP 18; O2SAT 95
[2021-07-24] MEDS: Albuterol 2.5 MG/3 ML VIAL.NEB. INHALATION (03:23)
[2021-07-24] MEDS: Dicyclomine 10 MG Capsule PO ×3 (06:03→20:30)
[2021-07-24 07:20] VITALS: O2SAT 90
--- NOTE | 2021-07-24 07:23 | CPS ---
She had O2 off the SPO2 was 88%
[2021-07-24 09:40] VITALS: BP 128/78; PULSE 102; RESP 16; TEMP 36.4; O2SAT 94
[2021-07-24] MEDS: Amox/Clavulanate 875 MG Tablet PO ×2 (09:42→20:30)
[2021-07-24] MEDS: Enoxaparin 40 MG/0.4 ML Syringe SC (09:43)
[2021-07-24] MEDS: Escitalopram Oxalate 20 MG Tablet PO (09:43)
[2021-07-24] MEDS: busPIRone 5 MG Tablet 10 MG PO ×2 (09:43→20:29)
[2021-07-24] MEDS: oxyCODONE CR 15 MG Tablet PO ×2 (09:49→20:29)
--- NOTE | 2021-07-24 10:03 | PN.HOSP_ITS ---
Subjective Subjective Follow-up on acute abdominal pain: Patient was seen and examined. Abdominal pain is better with current pain regime n of oxycontin and oxycodone. She admitted to bowel movements. Abdominal distension appears to re-occurred. She vomited after oat meal. She remains on clear liquid diet. Objective Data Objective Data Vital Signs: Vital Signs Temp Pulse Resp BP Pulse Ox 97.5 F L 102 H 16 128/78 H 94 07/24/21 09:40 07/24/21 09:40 07/24/21 09:40 07/24/21 09:40 07/24/21 09:40 Oxygen Flow Rate (L/min) [2] 2 Oxygen Flow Rate (L/min) 2 Oxygen Delivery Method [2] Nasal Cannula Oxygen Delivery Method [1 ( Room Air Initial Baseline)] Oxygen Delivery Method Nasal Cannula Weight: 112.9 kg Body Mass Index (BMI) 42.7 Intake & Output: Intake and Output for Last 24 Hours 07/22/21 07/23/21 07/24/21 23:59 23:59 23:59 Intake Total 1380 / 1380 950 / 950 240 / 240 Balance 1380 / 1380 950 / 950 240 / 240 Medical Nutrition Assessment Dietitian: Malnutrition Criteria Met Start: 07/19/21 12: 56 Freq: Status: Active Protocol: Document 07/19/21 12:56 AG (Rec: 07/19/21 12:56 AG [id number]) Nutrition Malnutrition Evidence of Malnutrition Exists Yes Malnutrition (severe): Acute Illness/Injury Evidenced By Suboptimal Energy Intake ( Severe),Weight Loss (Severe) Clinical Problem Acute Disease or Injury Related Malnutrition Etiology severe, acute malnutrition r/t inadequate energy intake d/t GI dysfunction, new dx of colon cancer Signs/Symptoms as evidenced by unintentional wt loss of 19.1#/7% x 1 month, estimated PO intake meeting < 50% of estimated nutritional needs x1 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 Recommend nutrition support if unable to resume PO diet- will provide additional recommendations as indicated. Lab / Micro Data Result Diagrams: 07/22/21 09:05 07/22/21 10:08 Radiography Diagnostic Testing: Radiology Impression Chest CT 07/23/21 11:54 IMPRESSION: 1. Mediastinal and bilateral hilar adenopathy, suspicious for neoplasm/metastasis. 2. Moderate bilateral pleural effusions with lower lobe atelectasis. 3. Mild ascites of the upper abdomen partially visualized. Electronically Signed: Riccardo Green MD ([place]) at 22:32 EST , Service support , Physical Exam Narrative Physical exam: General: Alert, Oriented x3, Cooperative, No apparent distress, Well developed HEENT: Atraumatic Oral: Moist Mucosa Neck: Supple Lungs: Clear to auscultation Cardiovascular: HS I+II, regular, no murmurs Abdomen: Distended, Bowel Sounds Present, Soft, generalised tenderness all over abdomen, no guarding or RBT Extremities: No edema Assessment & Plan Assessment/Plan (1) Colon cancer: QUALIFIERS: Colon location: overlapping sites Qualified Code(s): C18.8 - Malignant neoplasm of overlapping sites of colon PLAN: 1. Acute intractable abdominal pain secondary to poorly differentiated colon cancer Pain is improved, continue on oxycontin 15mg BID, oxycodone 10mg Q4h prn, bowel regimen 2. Metastatic adenocarcinoma of the colon- cecum, ascending colon and hepatic flexure Mesenteric nodules with ascites seen on CT, mediastinal and hilar lymphadenopathy on chest CT Poorly differentiated adenocarcinoma from colonic biopsies on 07/13/21 Adenocarcinoma favor colonic origin from cytology from ascitic aspirate Patient is going for med port tomorrow with general surgery 3. Ascites, newly diagnosed on CT, status post paracentesis on 07/21/21, likely reaccumulating Will repeat USG guided paracentesis tomorrow Oncology and gastroenterology following 4. Ileus, probably multifactorial from narcotic meds/ascites/carcinomatosis Check KUB tomorrow, continue on clear liquid diet 5. History of Crohn's disease, continue on Augmentin 6. Anxiety disorder, continue on Lexapro 7. DVT prophylaxis Lovenox subcu Charges/Coding Visit Charges Inpatient E&M: 85350 Subs Hosp L3
--- NOTE | 2021-07-24 14:09 | RAD_ITS ---
EXAM: XR ABDOMEN, 1 VIEW CLINICAL INDICATION: Probable ileus TECHNIQUE: Frontal supine view of the abdomen/pelvis. This report was created using Del[employer] report generation technology. COMPARISON: 07.22.21 FINDINGS: LOWER THORAX: No acute pathology. GASTROINTESTINAL TRACT: Unremarkable. Non-obstructive. No bowel or stomach distention. ORGANS: Unremarkable as visualized. No organomegaly. No abnormal calcifications. BONES/JOINTS: Degenerative findings in the lumbar spine. SOFT TISSUES: There are bilateral tubal ligation clips. RAD/Abdomen Single View (Portable) IMPRESSION: No acute findings. Electronically Signed: Arie Aguilar MD at 17:39 EST , Service support ,
[2021-07-24 16:42] VITALS: BP 119/85; PULSE 106; RESP 16; TEMP 36.3; O2SAT 94
[2021-07-24 19:59] VITALS: BP 114/75; BP 117/70; PULSE 102; RESP 16; TEMP 36.8; O2SAT 95
[2021-07-25] VITALS (14 sets, daily range): BP systolic 111–139; BP diastolic 67–86; PULSE 105–115; RESP 16–18; TEMP 36.1–36.9; O2SAT 92–96
--- NOTE | 2021-07-25 04:17 | PCS.PANDOC ---
PANDEMIC DOCUMENTATION INITIATED: Date: 04/25/2021 Time: 190
--- NOTE | 2021-07-25 05:00 | US_ITS ---
STUDY: ABDOMINAL ULTRASOUND - ascites survey. REASON FOR VISIT: Female, 50 years old Malignant ascites TECHNIQUE: Ultrasound evaluation of the 4 quadrants was performed with real-time and static allen-scale imaging. TECHNICAL QUALITY: Adequate. COMPARISON: None. FINDINGS: Tiny amount of fluid is seen in the right and left lower quadrants. Not enough fluid for safe paracentesis. US/Abdomen Limited IMPRESSION: Not enough fluid for safe paracentesis. Electronically Signed: Carlitos Roberts MD at 9:44 EST , Service support ,
[2021-07-25] MEDS: 0.9% Saline Lock 10 ML Syringe IV (05:40)
[2021-07-25] MEDS: Ondansetron 4 MG/2 ML Vial IV (05:40)
--- NOTE | 2021-07-25 05:55 | RAD_ITS ---
STUDY: X-RAY CHEST REASON FOR EXAM: Female, 50 years old patient presents for preop clearance. TECHNIQUE: Single AP portable view of the chest. COMPARISON: Chest radiograph dated 07/15/2021. FINDINGS: The lungs are underexpanded with crowding of the bronchovascular markings and obscuration of the lung bases. There appears to be bilateral basilar dependent and/or subsegmental atelectasis. There is no demonstrated pleural abnormality. There is borderline cardiomegaly. Normal mediastinum and parisa. There is prominence of the pulmonary hilar arteries with peripheral pulmonary vascular congestion. There is atherosclerotic calcification of the aortic arch with tortuosity. Normal visualized thoracic spine. Normal visualized ribs, clavicles, and shoulders. There is no demonstrated abnormality of the visualized soft tissue structures of the upper abdomen. RAD/Chest 1 View (Portable) IMPRESSION: Expiratory chest radiograph with pulmonary congestion and bilateral basilar atelectasis. Electronically Signed: Jenniffer Suero MD at 5:46 EST , Service support ,
[2021-07-25 07:16] LABS: Absolute Neutrophil Count 13.8 X10^3/uL (2.0-7.7); Basophil# 0.02 X10^3/uL; Basophil% 0.1 % (0-1); Eosinophil# 0.32 X10^3/uL; Hematocrit 35.4 % (37-47); Hemoglobin 11.4 g/dL (12.0-15.0); Lymphocyte % 3.8 % (19-41); Mean Corp Hgb Conc 32.2 g/dL (32-36); Mean Corpuscular Volume 83.7 fL (81-99); Mean Platelet Vol. 10.8 fl (6.2-12.0); Monocyte% 6.9 % (0-10); NRBC Flagged by Analyzer 0 % (0-5); Neutrophil # 13.75 X10^3/uL (2.7-7.7); Neutrophil % 86.4 % (47-70); POSITIVE DIFFERENTIAL YES; Platelet Count 293 K/mm3 (150-450); RBC Distribution Width SD 42.5 fl (35.1-43.9); Red Blood Count 4.23 M/mm3 (4.2-5.4); White Blood Count 15.9 K/mm3 (4.4-11.0)
[2021-07-25 07:20] LABS: Differential Indicated SCAN CRITERIA MET
[2021-07-25 07:55] LABS: ALB/GLOB Ratio 0.4 RATIO (0.9-2.4); AST(SGOT) 24 U/L (15-37); Alanine Aminotransfer ALT/SGPT 13 U/L (13-56); Albumin, Serum 1.7 g/dL (3.2-5.0); Alkaline Phosphatase 72 U/L (45-117); Anion Gap 10 (5-15); BUN 15 mg/dL (7-18); BUN/Creat Ratio 22.3 RATIO (10-20); Calcium,Total 9.3 mg/dL (8.5-10.1); Chloride 96 mmol/L (98-107); Creatinine, Serum 0.67 mg/dL (0.55-1.02); EST Glomerular Filtration Rate 98 mL/min (>60); Est Glom Filt Rate - Afr Amer 119 mL/min (>60); Estimated Creatinine Clearance 86.74 ml/min; Globulin 4.7 g/dL (2.2-4.2); Glucose 71 mg/dL (74-106); Potassium 4.3 mmol/L (3.5-5.1); Protein, Total 6.4 g/dL (6.4-8.2); Sodium Level 131 mmol/L (136-145)
[2021-07-25] MEDS: Cefazolin 2 GM in 0.9% Normal Saline 100 ML IV (09:32)
[2021-07-25] MEDS: Lidocaine 1% /Epi 1:100 (20ml) 20 ML Vial (10:00)
--- NOTE | 2021-07-25 10:12 | RAD_ITS ---
STUDY: X-RAY CHEST REASON FOR EXAM: Female, 50 years old. pacu, port placement TECHNIQUE: Single AP portable view of the chest. COMPARISON: 07/25/2020 1058 FINDINGS: Interval placement of right internal jugular chest port with tip of the catheter overlying the junction of the right atrium and superior vena cava with no pneumothorax. Poor inspiration with some bibasilar atelectasis. There is no demonstrated pleural abnormality. There is moderate cardiac enlargement. Normal mediastinum and parisa. Normal visualized pulmonary arteries. Normal visualized aortic arch and descending thoracic aorta. Normal visualized thoracic spine. Normal visualized ribs, clavicles, and shoulders. There is no demonstrated abnormality of the visualized soft tissue structures of the upper abdomen. RAD/Chest 1 View (Portable) IMPRESSION: 1. Interval placement of right internal jugular chest port with tip of catheter overlying the junction of the right atrium and superior vena cava with no pneumothorax. 2. Poor inspiration with some bibasilar discoid atelectasis. Electronically Signed: Elias Weeks MD at 10:42 EST Tel , Service support ,
--- NOTE | 2021-07-25 10:12 | OP.PCM_ITS ---
Problems Associated Problem List Diagnoses (1) Colon cancer: (2) Encounter for adjustment and management of vascular access device: Report of Operation Date of Procedure: 07/25/21 Pre-Operative Diagnosis: Colon cancer, need for vascular access for chemotherapy Post-Operative Diagnosis: Same Surgery/Procedure Performed:: Ultrasound and fluoroscopy guided right chest port placement utilizing right IJ Description of Procedure: After obtaining informed consent patient was brought back to the operating room MAC anesthesia was induced and the right chest and neck were prepped in normal sterile fashion. Ultrasound was used to evaluate both IJs and the right IJ was selected. Next, using a needle, the right IJ was accessed and a guidewire was passed on into the superior vena cava under fluoroscopy guidance. A small incision was made over the puncture site and the dilator introducer was placed over the guidewire. Next this was capped and the pocket was made for the port. 1% lidocaine with epinephrine was injected in the proposed port site. An incision was made with scalpel. Electrocautery was used to make a pocket under the skin and subcutaneous tissue. Hemostasis was obtained. Next, the catheter was tunneled up to the neck incision site and placed through the introducer. The peel-away introducer was removed and the position of the catheter was confirmed on fluoroscopy. Next, the catheter was trimmed and attached to the port with the locking device. Interrupted 2-0 Vicryl sutures were used to anchor the port to the chest wall and then the port was placed inside the pocket. The pocket was then flushed with saline and the port irrigated with saline. There was good blood return and the port flushed easily. Next, heparin was injected into the port. The skin was closed with subcutaneous interrupted 3-0 Vicryl sutures. A single 3-0 Vicryl sutures placed under the skin at the neck incision site. Steri-Strips were placed as well as op sites. Patient tolerated procedure well, was taken to PACU in stable condition. Chest x-ray will be obtained. Grafts/Implants Used: 8 Italian PowerPort Admit VTE Documentation VTE Mechan Device Prophylaxis: SCD's
[2021-07-25] MEDS: oxyCODONE CR 15 MG Tablet PO ×2 (11:45→21:57)
[2021-07-25] MEDS: busPIRone 5 MG Tablet 10 MG PO ×2 (11:55→21:59)
[2021-07-25] MEDS: Escitalopram Oxalate 20 MG Tablet PO (11:55)
[2021-07-25] MEDS: Dicyclomine 10 MG Capsule PO ×2 (11:55→21:59)
[2021-07-25] MEDS: Amox/Clavulanate 875 MG Tablet PO ×2 (11:55→21:59)
--- NOTE | 2021-07-25 12:49 | ONC.PN.INPT ---
Subjective Subjective Upon entering the room the patient is sitting upright in bedside chair conversing with her mother. Notes some pulling with rotation of her head at the port placement site. Verbalizes says she is eager to undergo paracentesis this afternoon and is pleased to report pain is well controlled on current analgesia. Rating pain in her abdomen 4 out of 10 at this time. Constipation is still problematic. Physical Exam Const alert and oriented x3 HEENT normocephalic Eyes PERRL and conjunctivae normal; Negative for no scleral icterus Eyes Narrative: wears glasses Neck No no lymphadenopathy and supple Lymph Lymphatic: Negative for no lymphadenopathy noted Chest inspection of chest normal Resp normal respiratory effort and clear to auscultation bilaterally Cardio regular rate, regular rhythm, S1 normal heart sound and S2 normal heart sound GI GI Narrative: diffuse tenderness. Distended, bowel sounds present x4 Palpation: firm Groin / Perineum Exam: Negative for hernia Extremity normal to inspection and no clubbing, cyanosis or edema Skin Skin Narrative: 1 area of ecchymosis limited to right upper extremity, otherwise no bruising or petechiae General Skin Exam: ecchymosis; Negative for jaundice Neuro CN's II-XII intact bilaterally, moves all extremities and no focal motor deficits Psych mental status grossly normal and affect normal Vital Signs Temperature 97.7 F L 07/25/21 11:15 Temperature Source Temporal 07/25/21 11:15 Pulse Rate 108 H 07/25/21 11:15 Respiratory Rate 16 07/25/21 11:15 Respiratory Effort 07/25/21 07:42 Respiratory Depth Normal 07/25/21 07:42 Respiratory Pattern Normal 07/25/21 10:16 Blood Pressure 111/79 07/25/21 11:15 Blood Pressure Mean 89 07/25/21 11:15 Blood Pressure Source Monitor 07/25/21 11:15 Blood Pressure Position Semi-Fowlers 07/25/21 11:15 Blood Pressure Location Left Arm 07/25/21 11:15 Baseline BP 125/85 07/25/21 10:43 Pulse Ox 93 07/25/21 11:15 Oxygen Delivery Method Nasal Cannula 07/25/21 11:15 Oxygen Flow Rate (L/min) 3 07/25/21 11:15 Laboratory Results - last 24 hr 07/25/21 06:00: WBC 15.9 H, RBC 4.23, Hgb 11.4 L, Hct 35.4 L, MCV 83.7, MCH 27.0, MCHC 32.2, RDW Std Deviation 42.5, RDW Coeff of Mohsen 14.0, Plt Count 293, MPV 10.8, Immature Gran % (Auto) 0.800, Neut % (Auto) 86.4 H, Lymph % (Auto) 3.8 L, Johnston % (Auto) 6.9, Eos % (Auto) 2.0, Baso % (Auto) 0.1, Absolute Neuts (auto) 13.8 H, Absolute Lymphs (auto) 0.60 L, Nucleated RBC % 0, Differential Comment COMMENT 07/25/21 06:00: Sodium 131 L, Potassium 4.3, Chloride 96 L, Carbon Dioxide 25.0, Anion Gap 10, BUN 15, Creatinine 0.67, Estim Creat Clear Calc 86.74, Est GFR (MDRD) Af Amer 119, Est GFR (MDRD) Non-Af 98, BUN/Creatinine Ratio 22.3 H, Glucose 71 L, Calcium 9.3, Total Bilirubin 0.50, AST 24, ALT 13, Alkaline Phosphatase 72, Total Protein 6.4, Albumin 1.7 L, Globulin 4.7 H, Albumin/Globulin Ratio 0.4 L Microbiology 07/25/21 08:30 Nasal Secretion SARS-CoV-2 Antigen (Rapid) - Final Diagnostic Data Abdomen Ultrasound 07/19/21 07:19 IMPRESSION: Not enough fluid for safe paracentesis. Electronically Signed: Carlitso Roberts MD at 14:52 EST , Service support , Paracentesis Ultrasound 07/21/21 07:32 IMPRESSION: Ultrasound guided paracentesis. Electronically Signed: Carlitos Roberts MD at 10:52 EST , Service support , Abdomen X-Ray 07/22/21 18:40 IMPRESSION: 1. Scattered segments of mildly distended large bowel with diluted contrast and air-fluid levels noted however contrast is present level of the distal descending colon. No cherise bowel obstruction, however mild ileus is a consideration. No evidence of pneumatosis or free air. Electronically Signed: Elias Solis MD at 19:34 EST Tel , Service support , Chest CT 07/23/21 11:54 IMPRESSION: 1. Mediastinal and bilateral hilar adenopathy, suspicious for neoplasm/metastasis. 2. Moderate bilateral pleural effusions with lower lobe atelectasis. 3. Mild ascites of the upper abdomen partially visualized. Electronically Signed: Riccardo Green MD ([place]) at 22:32 EST , Service support , KUB X-Ray 07/24/21 14:09 IMPRESSION: No acute findings. Electronically Signed: Arie Aguilar MD at 17:39 EST , Service support , Chest X-Ray 07/25/21 10:12 IMPRESSION: 1. Interval placement of right internal jugular chest port with tip of catheter overlying the junction of the right atrium and superior vena cava with no pneumothorax. 2. Poor inspiration with some bibasilar discoid atelectasis. Electronically Signed: Elias Weeks MD at 10:42 EST Tel , Service support , Assessment & Plan Assessment/Plan (1) Colon cancer: QUALIFIERS: Colon location: ascending Qualified Code(s): C18.2 - Malignant neoplasm of ascending colon (2) Malignant ascites: (3) At high risk for deep venous thrombosis: PLAN: Ms. Mónica James is a very pleasant 50-year-old woman who was diagnosed on 07/13/2021 with poorly differentiated adenocarcinoma involving the cecum, ascending colon and hepatic flexure after undergoing EGD and colonoscopy in the outpatient setting under the care of Dr. Morfin. She developed ascites and presented to [facility] emergency department on 07/18/2021 with complaints of intractable abdominal pain. She subsequently underwent therapeutic and diagnostic paracentesis on 07/21/2021, cytology of which confirmed the presence of malignant cells favoring adenocarcinoma consistent with colonic primary. CT chest with contrast obtained 07/23/2021 demonstrates mediastinal and bilateral hilar adenopathy, bilateral pleural effusions. 1. Colon cancer?metastatic with peritoneal carcinomatosis, malignant ascites and chest adenopathy. CT chest results thoroughly reviewed with the patient. She is aware of disease stage IV. 2. Malignant ascites?scheduled for second therapeutic paracentesis later this afternoon. 3. High risk for DVT?continue subcu Lovenox prophylactically. I stressed the importance to the patient of ambulating in her room as much as possible. From an oncology perspective, would like to initiate systemic chemotherapy with a fluorouracil based regimen as soon as possible in the outpatient setting. She is tentatively scheduled to begin chemotherapy on 07/27/21. Case discussed with Dr. Schwarz who was in agreement with aforementioned plan. Suzi Coello, DNP, DIRECTOR OF RETAIL OPERATIONS, AOCNP
--- NOTE | 2021-07-25 15:06 | NURSING ---
This RN reviewed SN charting
[2021-07-25] MEDS: Calcium Carbonate 500 MG Tablet PO (15:36)
[2021-07-25] MEDS: oxyCODONE 5 MG Tablet 10 MG PO (15:51)
[2021-07-25] MEDS: Bisacodyl 10 MG Suppository RC (16:01)
--- NOTE | 2021-07-25 19:27 | PN.HOSP_ITS ---
Subjective Subjective Patient was seen and examined today, she went down to have a paracentesis performed today but there was not enough fluid according to the patient for the procedure to be done. Patient had a Mediport inserted today, I talked briefly with oncology about her care, they plan to start the patient on chemotherapy on Sunday of this week. Objective Data Objective Data Vital Signs: Vital Signs Temp Pulse Resp BP Pulse Ox 97.6 F L 105 H 18 135/79 H 95 07/25/21 15:42 07/25/21 15:42 07/25/21 15:42 07/25/21 15:42 07/25/21 15:42 Oxygen Flow Rate (L/min) [2] 2 Oxygen Flow Rate (L/min) 2 Oxygen Delivery Method [2] Nasal Cannula Oxygen Delivery Method [1 ( Room Air Initial Baseline)] Oxygen Delivery Method Nasal Cannula Weight: 112.9 kg Body Mass Index (BMI) 42.7 Intake & Output: Intake and Output for Last 24 Hours 07/23/21 07/24/21 07/25/21 23:59 23:59 23:59 Intake Total 950 / 950 720 / 720 610 / 610 Balance 950 / 950 720 / 720 610 / 610 Medical Nutrition Assessment Dietitian: Malnutrition Criteria Met Start: 07/19/21 12:56 Freq: Status: Active Protocol: Document 07/19/21 12:56 (Rec: 07/19/21 12:56 [id number]) Nutrition Malnutrition Evidence of Malnutrition Exists Yes Malnutrition (severe): Acute Illness/Injury Evidenced By Suboptimal Energy Intake ( Severe),Weight Loss (Severe) Clinical Problem Acute Disease or Injury Related Malnutrition Etiology severe, acute malnutrition r/t inadequate energy intake d/t GI dysfunction, new dx of colon cancer Signs/Symptoms as evidenced by unintentional wt loss of 19.1#/7% x 1 month, estimated PO intake meeting < 50% of estimated nutritional needs x1 month 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 Recommend nutrition support if unable to resume PO diet- will provide additional recommendations as indicated. Lab / Micro Data Result Diagrams: 07/25/21 06:00 07/25/21 06:00 Labs: Laboratory Results - last 24 hr 07/21/21 09:30: Miscellaneous Cytology SEE PATHOLOGY REPORT 07/25/21 06:00: WBC 15.9 H, RBC 4.23, Hgb 11.4 L, Hct 35.4 L, MCV 83.7, MCH 27. 0, MCHC 32.2, RDW Std Deviation 42.5, RDW Coeff of Mohsen 14.0, Plt Count 293, MPV 10.8, Immature Gran % (Auto) 0.800, Neut % (Auto) 86.4 H, Lymph % (Auto) 3.8 L, [place] % (Auto) 6.9, Eos % (Auto) 2.0, Baso % (Auto) 0.1, Absolute Neuts (auto) 13.8 H, Absolute Lymphs (auto) 0.60 L, Nucleated RBC % 0, Differential Comment COMMENT 07/25/21 06:00: Sodium 131 L, Potassium 4.3, Chloride 96 L, Carbon Dioxide 25.0, Anion Gap 10, BUN 15, Creatinine 0.67, Estim Creat Clear Calc 86.74, Est GFR (MDRD) Af Amer 119, Est GFR (MDRD) Non-Af 98, BUN/Creatinine Ratio 22.3 H, Glucose 71 L, Calcium 9.3, Total Bilirubin 0.50, AST 24, ALT 13, Alkaline Phosphatase 72, Total Protein 6.4, Albumin 1.7 L, Globulin 4.7 H, Albumin/Globulin Ratio 0.4 L Micro: Microbiology 07/25/21 08:30 Nasal Secretion SARS-CoV-2 Antigen (Rapid) - Final Radiography Diagnostic Testing: Radiology Impression Chest X-Ray 07/25/21 05:55 IMPRESSION: Expiratory chest radiograph with pulmonary congestion and bilateral basilar atelectasis. Electronically Signed: Jenniffer Suero MD at 5:46 EST , Service support , Chest X-Ray 07/25/21 10:12 IMPRESSION: 1. Interval placement of right internal jugular chest port with tip of catheter overlying the junction of the right atrium and superior vena cava with no pneumothorax. 2. Poor inspiration with some bibasilar discoid atelectasis. Electronically Signed: Elias Weeks MD at 10:42 EST Tel , Service support , Physical Exam Const alert, oriented x3 and no apparent distress Constitutional Narrative: Patient is morbidly obese General Appearance: cooperative, well kempt and well developed Orientation / Consciousness: awake, oriented to person, oriented to place and oriented to time HEENT normocephalic, head/scalp atraumatic and moist oral mucous membranes Head and Scalp: normocephalic Eyes PERRL, EOMs intact bilaterally and conjunctivae normal Neck nuchal rigidity, supple, no JVD, thyroid normal and no carotid bruits General: trachea midline Resp normal respiratory effort and clear to auscultation bilaterally Auscultation: Negative for rales, rhonchi or wheezes Cardio regular rate, regular rhythm, S1 normal heart sound, S2 normal heart sound, no murmurs, no rub and no gallops GI normal to inspection, nondistended, normoactive bowel sounds, soft to palpation, non-tender and non-distended Extremity no clubbing, cyanosis or edema Skin no rashes or lesions noted General Skin Exam: no breakdown Neuro oriented x3, CN's II-XII intact bilaterally, no focal motor deficits and no sensory deficits noted Sensorium / Orientation: awake and alert Speech: speech normal Psych thought process normal and affect normal Assessment & Plan Assessment/Plan (1) Colon cancer: QUALIFIERS: Colon location: ascending Qualified Code(s): C18.2 - Malignant neoplasm of ascending colon PLAN: 1. Poorly differentiated colon cancer of the cecum ascending colon and hepatic flexure-patient will need outpatient chemotherapy starting this week #2 malignant ascites-again there was not enough ascites to perform a pa racentesis today #3 chronic anxiety disorder #4 hypoxia-etiology unclear at this time, patient will be checked tomorrow regarding home oxygen need. Patient had moderate bilateral pleural effusions with lower lobe atelectasis noted on 07/23/2021. #5 protein and caloric malnutrition-nutritional services is seeing patient #6 mediastinal and bilateral hilar adenopathy-suspicious for metastatic colon cancer Charges/Coding Visit Charges Inpatient E&M: 32625 Subs Hosp L2
[2021-07-26 03:40] VITALS: BP 138/90; PULSE 95; RESP 18; TEMP 36.6; O2SAT 96
[2021-07-26 03:45] VITALS: O2SAT 95
[2021-07-26] MEDS: Dicyclomine 10 MG Capsule PO (05:33)
[2021-07-26 05:45] LABS: Absolute Lymphocyte Count 0.55 X10^3/uL (0.83-4.51); Absolute Neutrophil Count 13.2 X10^3/uL (2.0-7.7); Basophil# 0.03 X10^3/uL; Basophil% 0.2 % (0-1); Eosinophils% 1.3 % (0-5); Hematocrit 34.6 % (37-47); Hemoglobin 11.2 g/dL (12.0-15.0); Lymphocyte # 0.55 X10^3/ul (0.83-4.51); Lymphocyte % 3.6 % (19-41); Mean Corp Hgb Conc 32.4 g/dL (32-36); Mean Corpuscular Hgb 27.1 pg (27.0-32.0); Mean Corpuscular Volume 83.6 fL (81-99); Mean Platelet Vol. 10.7 fl (6.2-12.0); Monocyte# 1.09 X10^3/uL; Monocyte% 7.2 % (0-10); NRBC Flagged by Analyzer 0 % (0-5); Neutrophil # 13.22 X10^3/uL (2.7-7.7); Neutrophil % 86.9 % (47-70); POSITIVE DIFFERENTIAL YES; Platelet Count 302 K/mm3 (150-450); RBC Distribution Width CV 13.8 % (11.6-14.6); RBC Distribution Width SD 42.2 fl (35.1-43.9); Red Blood Count 4.14 M/mm3 (4.2-5.4); White Blood Count 15.2 K/mm3 (4.4-11.0)
[2021-07-26 05:56] LABS: Differential Indicated SCAN CRITERIA MET
[2021-07-26 06:13] LABS: ALB/GLOB Ratio 0.3 RATIO (0.9-2.4); AST(SGOT) 21 U/L (15-37); Alanine Aminotransfer ALT/SGPT 11 U/L (13-56); Albumin, Serum 1.6 g/dL (3.2-5.0); Alkaline Phosphatase 68 U/L (45-117); Anion Gap 12 (5-15); BUN 12 mg/dL (7-18); BUN/Creat Ratio 21.1 RATIO (10-20); Calcium,Total 8.7 mg/dL (8.5-10.1); Chloride 95 mmol/L (98-107); Creatinine, Serum 0.57 mg/dL (0.55-1.02); EST Glomerular Filtration Rate 119 mL/min (>60); Est Glom Filt Rate - Afr Amer 144 mL/min (>60); Estimated Creatinine Clearance 101.96 ml/min; Globulin 4.6 g/dL (2.2-4.2); Glucose 78 mg/dL (74-106); Potassium 4.1 mmol/L (3.5-5.1); Protein, Total 6.2 g/dL (6.4-8.2); Sodium Level 131 mmol/L (136-145)
[2021-07-26 07:08] VITALS: O2SAT 96
[2021-07-26 08:15] VITALS: O2SAT 88; O2SAT 94; O2SAT 95
[2021-07-26] MEDS: oxyCODONE 5 MG Tablet 10 MG PO (08:18)
[2021-07-26] MEDS: Ondansetron 4 MG/2 ML Vial IV (08:18)
[2021-07-26 09:45] VITALS: BP 144/84; PULSE 108; RESP 18; TEMP 36.4; O2SAT 97
[2021-07-26] MEDS: busPIRone 5 MG Tablet 10 MG PO (09:48)
[2021-07-26] MEDS: Escitalopram Oxalate 20 MG Tablet PO (09:48)
[2021-07-26] MEDS: Amox/Clavulanate 875 MG Tablet PO (09:48)
[2021-07-26] MEDS: Enoxaparin 40 MG/0.4 ML Syringe SC (09:49)
--- NOTE | 2021-07-26 09:56 | CASEMGMT ---
Per Sarah RN, pt qualifies for 2L nc continuous home oxygen. This RN CM to room and pt states no preference for DME company. Referral faxed to [employer] and per [place], they do have a concentrator in stock. [place] is aware that pt to be discharged today, voices understanding and e-tank to be delivered to [facility] for discharge. Pt is unsure of time for 1st chemo treatment tomorrow at [facility] and this RN CM left a message for schedulers to call this RN CM back with time. Pt does inquire about getting COVID vaccine prior to chemo per Suzi Coello's recommendation to her and Dr. Pickering aware and vaccine ordered. Pt voices no further questions/concerns/needs. Coco RN CM
--- NOTE | 2021-07-26 10:23 | CASEMGMT ---
SW checked in with patient to see how she is doing in regards to her new diagnosis of Colon Cancer. Patient said she is managing okay. Her mom and son are supportive. Patient and her mom did sit down with patient's son and shared with him the diagnosis. Patient feels she is going to be okay, though it may be tough at times. Patient then told SW that her discharge information needs to state what day she was admitted, why she was admitted, and when she was discharged. SW asked if patient the name of her Human Resources contact. Gris Cifuentes at [employer]. EN let patient know that SW will give her a call and get her what she needs. Patient gave permission for this information to be shared with her employer as she is applying for short term disability. SW called [employer] ([phone]) and left a message for Gris Cifuentes. Arline HERRERA
[2021-07-26] MEDS: oxyCODONE CR 15 MG Tablet PO (10:56)
--- NOTE | 2021-07-26 11:21 | CASEMGMT ---
NE received a return call from Gris at [facility]. She asked that the letter indicate when patient was admitted and when she was discharged. Gris's fax number is [phone]. NE faxed a letter to Gris with requested information. NE let patient know that NE faxed a letter to Gris at [facility] with admission and discharge dates. Patient thanked NE. Arline Long BILLET HEATERFernando ARMENDARIZW
--- NOTE | 2021-07-26 11:33 | PCM.DC ---
Discharge Instructions Diet Discharge Diet: No restrictions Activity Discharge Activity: Return to Normal Activity Weight Bearing Status: Full weight bearing Follow Up Care Test Results: Test results from this visit will be discussed in further detail at your follow-up appointment, if applicable. Discharge Plan Admission Admit Date/Time: 07/19/21 03:01 Primary Reason for Your Visit: colon cancer Attending Provider: David Pickering Primary Care Provider: Alysha Amaya Consulting Providers: Trung Schwarz ; Blanca Mcguire Instructions Patient Instructions: Paracentesis Dc Discharge Orders/Prescriptions Prescriptions: New oxycodone [OxyContin] 15 mg Tablet,Oral Only,Ext.Rel.12 Hr 15 mg PO BID 7 Days Qty: 14 RF: 0 oxycodone 5 mg Tablet 10 mg PO Q4H PRN PRN (Reason: Abdominal Pain) 7 Days Qty: 30 RF: 0 Continued dicyclomine 10 mg capsule 10 mg PO TID Qty: 90 RF: 0 buspirone 10 mg tablet 10 mg PO BID RF: 0 escitalopram oxalate 20 mg tablet 20 mg PO DAILY RF: 0 Discontinued hyoscyamine sulfate [Levbid] 0.375 mg tablet extended release 12 hr 0.375 mg PO Q8H PRN (Reason: Spasms) RF: 0 pantoprazole 40 mg tablet,delayed release (DR/EC) 40 mg PO DAILY Qty: 30 RF: 3 prednisone 20 mg tablet 40 mg PO DAILY RF: 0 ondansetron [ondansetron] 4 MG tablet 4 mg PO Q8H PRN PRN (Reason: Nausea) Qty: 10 RF: 0 amoxicillin-pot clavulanate [amoxicillin-pot clavulanate] 875 MG tablet 875 mg PO Q12H Qty: 20 RF: 0 ondansetron [ondansetron] 4 MG tablet 4 mg PO Q8H PRN PRN (Reason: Nausea) Qty: 10 RF: 0 metronidazole [Flagyl] 375 mg capsule 500 mg PO Q8H Qty: 42 RF: 0 hydrocodone-acetaminophen 5-325 mg tablet 1 tab PO Q6H PRN PRN (Reason: Pain) 3 Days Qty: 10 RF: 0 Referrals / Follow Up: Blanca Mcguire MD [STAFF PHYSICIAN] - (Call the office for scheduling port placement- if still needed, can schedule as an outpatient?do not need to be seen in office 1st.) Suzi Coello NP, AIRPLANE DISPATCH CLERK-C [Nurse Practitioner] - 07/27/21 7:30 am (You need to be to [facility] outpatient pavillion by 7:30am. You will get labs drawn, be seen by Suzi then get your first chemo treatment. ) Alysha Amaya, LIZABETH-C [Primary Care Provider] - Disposition Disposition (needs filled in before D/C Order can be placed): Home, Self Care
[2021-07-26] MEDS: COVID-19 VAC,AD26(JANSSEN)/PF 0.5 ML SYRINGE IM (11:58)
--- NOTE | 2021-07-26 12:08 | PHA.DC.MR ---
Pharmacy Service has performed discharge medication reconciliation for this patient. The patient's discharge medication list was reviewed for discrepancies and discrepancies were resolved. Home Medications buspirone 10 mg PO BID 06/13/21 escitalopram oxalate 20 mg PO DAILY 06/13/21 dicyclomine 10 mg capsule 10 mg PO TID #90 cap 07/01/21 oxycodone 10 mg PO Q4H PRN PRN 7 Days #30 tab 07/26/21 oxycodone [OxyContin] 15 mg PO BID 7 Days #14 tab 07/26/21
--- NOTE | 2021-07-26 14:33 | PCM.DC.SUM ---
Providers Date of Admission: 07/19/21 Date of Discharge: 07/26/21 Primary Care Physician: KASIA Gupta Consultations 07/19/21 03:57 Consult: Gastroenterology Routine Consulting Provider: [facility] Reason for Consult: abdominal pain EMERGENT Consult: Yes MD Notified: Yes Date Notified: 07/19/21 Time Notified: 03:04 Method of Notification: Page 07/19/21 16:35 Consult: Oncology/Hematology Routine Consulting Provider: Trung Schwarz Reason for Consult: Colon cancer EMERGENT Consult: No MD Notified: Yes Date Notified: 07/19/21 Time Notified: 16:35 Method of Notification: Verbal 07/20/21 16:16 Consult: General Surgery Routine Consulting Provider: Blanca Mcguire Reason for Consult: colon ca EMERGENT Consult: No MD Notified: Yes Date Notified: 07/20/21 Time Notified: 16:51 Method of Notification: Text Reason For Visit: ABDOMINAL PAIN, NEW DIAGNOSIS COLON CANCER Diagnosis Discharge Diagnosis (1) Colon cancer: Status: Acute Code(s): C18.9 - Malignant neoplasm of colon, unspecified Qualifiers: Colon location: ascending Qualified Code(s): C18.2 - Malignant neoplasm of ascending colon Plan: 1. Poorly differentiated colon cancer of the cecum ascending colon and hepatic flexure with metastatic disease #2 malignant ascites #3 chronic anxiety disorder #4 hypoxia-etiology unclear- possibly secondary to malignant pleural effusion #5 protein and caloric malnutrition #6 mediastinal and bilateral hilar adenopathy-suspicious for metastatic colon cancer Medications at Discharge Home Medications buspirone 10 mg PO BID 06/13/21 escitalopram oxalate 20 mg PO DAILY 06/13/21 dicyclomine 10 mg capsule 10 mg PO TID #90 cap 07/01/21 oxycodone 10 mg PO Q4H PRN PRN 7 Days #30 tab 07/26/21 oxycodone [OxyContin] 15 mg PO BID 7 Days #14 tab 07/26/21 Hospital Course Procedures Colonoscopy, Paracentesis and - (Mediport placement) Summary of Care Provided Minutes Spent on Discharge: 32 Hospital Course: This 50-year-old white female was seen in the emergency room with complaints of persistent abdominal pain along with vomiting. She had been seen in the ER approximately 2 days prior with similar complaints and at that time she was switched from one antibiotic to another antibiotic. She had a recent EGD and colonoscopy was tentatively diagnosed with Crohn's disease, her pathology came back today positive for adenocarcinoma with a likely source being her colon. Patient had a CT of the abdomen and pelvis performed the day before that showed abnormal peripheral mesentery and scattered mesenteric prominent lymph nodes concerning for neoplastic process including peritoneal carcinomatosis. Labs performed in the emergency room showed an elevated white blood cell count at 20.1, the remainder of the patient's labs were unremarkable. Patient was given IV Zofran and IV narcotics for abdominal pain, she was admitted to PCU, GI was consulted, patient underwent a paracentesis in radiology which yielded 2300 mL of fluid removed. Seen in consultation by oncology and gastroenterology, she remained on low-flow oxygen during her hospitalization, there is noted to be pleural effusions present both this examiner did not feel they were large enough for a thoracentesis. Repeat paracentesis was canceled due to inadequate amount of fluid in the abdomen. Patient had a Mediport placed by surgery. On07/26/21, patient was seen and examined: On examination she appeared her stated age, she does not appear to be in any distress. Vital signs as documented. Skin warm and dry and without overt rashes. Neck without JVD, thyroid appears normal, trachea is midline, neck is supple. Lungs clear, normal air movement was noted. Heart exam notable for regular rhythm, normal sounds and absence of murmurs, rubs or gallops. Abdomen unremarkable and without evidence of organomegaly, masses, or abdominal aortic enlargement, bowel sounds are present in all 4 quadrants, no abdominal tenderness was noted. Extremities nonedematous, no cyanosis was noted, no clubbing was noted. Neuro: Cranial nerves II through XII are grossly intact, no focal motor deficits were noted, sensation to light touch and pinprick is intact, motor exam 5/5 throughout. Psych: Patient is alert and oriented x3, she does not appear anxious or depressed, she does not appear agitated. On 07/26/2021, patient was discharged home in stable condition, she required home oxygen at 2 L supplemental oxygen at rest and on ambulation, her pulse ox at rest was 88% on room air. Is expected to wear oxygen inside her home and outside the home. Weight / BMI Weight Weight: 112.9 kg Body Mass Index (BMI) 42.7 ABG / Lab / Microbiology Data Result Diagrams: 07/26/21 05:00 07/26/21 05:00 Laboratory: Laboratory Results - last 24 hr 07/26/21 05:00: WBC 15.2 H, RBC 4.14 L, Hgb 11.2 L, Hct 34.6 L, MCV 83.6, MCH 27.1, MCHC 32.4, RDW Std Deviation 42.2, RDW Coeff of Mohsen 13.8, Plt Count 302, MPV 10.7, Immature Gran % (Auto) 0.800, Neut % (Auto) 86.9 H, Lymph % (Auto) 3.6 L, [place] % (Auto) 7.2, Eos % (Auto) 1.3, Baso % (Auto) 0.2, Absolute Neuts (auto) 13.2 H, Absolute Lymphs (auto) 0.55 L, Nucleated RBC % 0 07/26/21 05:00: Sodium 131 L, Potassium 4.1, Chloride 95 L, Carbon Dioxide 24.0, Anion Gap 12, BUN 12, Creatinine 0.57, Estim Creat Clear Calc 101.96, Est GFR (MDRD) Af Amer 144, Est GFR (MDRD) Non-Af 119, BUN/Creatinine Ratio 21.1 H, Glucose 78, Calcium 8.7, Total Bilirubin 0.40, AST 21, ALT 11 L, Alkaline Phosphatase 68, Total Protein 6.2 L, Albumin 1.6 L, Globulin 4.6 H, Albumin/Globulin Ratio 0.3 L Microbiology: Microbiology 07/25/21 08:30 Nasal Secretion SARS-CoV-2 Antigen (Rapid) - Final Radiography Diagnostic Testing: Radiology Impression Abdomen Ultrasound 07/25/21 05:00 IMPRESSION: Not enough fluid for safe paracentesis. Electronically Signed: Carlitos Roberts MD at 9:44 EST , Service support , D/C Instructions Discharge Diet: No restrictions Weight Bearing Status: Full weight bearing Meaningful Use Info Meaningful Use Diagnoses (Choose all that apply): None applicable Discharge Plan Admission Admit Date/Time: 07/19/21 03:01 Primary Reason for Your Visit: colon cancer Attending Provider: David Pickering Primary Care Provider: Alysha Amaya Consulting Providers: Trung Schwarz ; Blanca Mcguire Instructions Patient Instructions: Paracentesis Dc Additional Instructions / Restrictions: Patient Problems: Altered Health Status related to Hospitalization Patient Goals: *Optimal Level of Health *Keep Appointments *Medication Compliance *Remain Safe Discharge Orders/Prescriptions Prescriptions: New oxycodone [OxyContin] 15 mg Tablet,Oral Only,Ext.Rel.12 Hr 15 mg PO BID 7 Days Qty: 14 RF: 0 oxycodone 5 mg Tablet 10 mg PO Q4H PRN PRN (Reason: Abdominal Pain) 7 Days Qty: 30 RF: 0 Continued dicyclomine 10 mg capsule 10 mg PO TID Qty: 90 RF: 0 buspirone 10 mg tablet 10 mg PO BID RF: 0 escitalopram oxalate 20 mg tablet 20 mg PO DAILY RF: 0 Discontinued hyoscyamine sulfate [Levbid] 0.375 mg tablet extended release 12 hr 0.375 mg PO Q8H PRN (Reason: Spasms) RF: 0 pantoprazole 40 mg tablet,delayed release (DR/EC) 40 mg PO DAILY Qty: 30 RF: 3 prednisone 20 mg tablet 40 mg PO DAILY RF: 0 ondansetron [ondansetron] 4 MG tablet 4 mg PO Q8H PRN PRN (Reason: Nausea) Qty: 10 RF: 0 amoxicillin-pot clavulanate [amoxicillin-pot clavulanate] 875 MG tablet 875 mg PO Q12H Qty: 20 RF: 0 ondansetron [ondansetron] 4 MG tablet 4 mg PO Q8H PRN PRN (Reason: Nausea) Qty: 10 RF: 0 metronidazole [Flagyl] 375 mg capsule 500 mg PO Q8H Qty: 42 RF: 0 hydrocodone-acetaminophen 5-325 mg tablet 1 tab PO Q6H PRN PRN (Reason: Pain) 3 Days Qty: 10 RF: 0 Referrals / Follow Up: Blanca Mcguire MD [STAFF PHYSICIAN] - (Call the office for scheduling port placement- if still needed, can schedule as an outpatient?do not need to be seen in office 1st.) Suzi Coello NP, SENIOR BIOSTATISTICIAN/GROUP LEADER-C [Nurse Practitioner] - 07/27/21 7:30 am (You need to be to [facility] outpatient pavillion by 7:30am. You will get labs drawn, be seen by Suzi then get your first chemo treatment. ) Alysha Amaya, SENIOR BIOSTATISTICIAN/GROUP LEADER-C [Primary Care Provider] - Disposition Disposition (needs filled in before D/C Order can be placed): Home, Self Care Charges/Coding Visit Charges Inpatient E&M: 45683 Disch Hosp
== END 2021-07-26 13:01 | disposition home or self-care (01) | DRG 374 ==
LOC: ED 01:35 → PCU 03:10
PROVIDERS: Internal Medicine; Internal Medicine Gastroenterology; Surgery; Admitting Provider Family Medicine; Emergency Provider Emergency Medicine; PCP Nurse Practitioner Adult Health; Visit Provider Internal Medicine
PROC: 02HV33Z Insertion of Infusion Device into Superior Vena Cava, Percutaneous Approach (ICD-10-PCS; principal; 2021-07-25 09:00)
DX: C18.8 Malignant neoplasm of overlapping sites of colon (principal); E43 Unspecified severe protein-calorie malnutrition; K50.90 Crohn's disease, unspecified, without complications; Z68.41 Body mass index [BMI] 40.0-44.9, adult; R18.0 Malignant ascites; J91.0 Malignant pleural effusion; R09.02 Hypoxemia; E66.01 Morbid (severe) obesity due to excess calories; F32.A Depression, unspecified; F41.9 Anxiety disorder, unspecified; G43.909 Migraine, unspecified, not intractable, without status migrainosus; K21.9 Gastro-esophageal reflux disease without esophagitis; Z78.0 Asymptomatic menopausal state; Z87.19 Personal history of other diseases of the digestive system; Z86.718 Personal history of other venous thrombosis and embolism; Z90.49 Acquired absence of other specified parts of digestive tract; Z79.52 Long term (current) use of systemic steroids; Z79.899 Other long term (current) drug therapy; Z87.891 Personal history of nicotine dependence
CPT/HCPCS: 0031A; 36415; 49083; 71045; 71260; 74018; 74019; 76705; 77001; 80053; 82378; 82945; 83605; 83615; 83690; 84484; 85025; 87426; 88108; 88305; 88313; 88341; 88342; 89050; 91303; 94640; 97802; 97803; 99284; 99406; J7030; Q9967; A4216; C1788; J1940; J2405

== ENCOUNTER 2021-07-27 06:28 | Inpatient (IN) | payer OTHER, SELFPAY ==
[2021-07-27] VITALS (11 sets, daily range): BP systolic 135–161; BP diastolic 63–91; PULSE 110–132; RESP 18–36; TEMP 36.1–37.1; O2SAT 93–97; BMI 42.7; BMI 42.3
--- NOTE | 2021-07-27 | FLU_PTH ---
PATIENT: YENY CERON LOC: MS3 U#:[id number] AGE/SX: 50/F [place] [facility] [place]27[place]: Dr. David Pickering DO : 1970 BED: 1 DIS: 07/28/2021 SPEC #: [id number] RECD: 07/27/21 13:08 STATUS: LEVON MILADY #: [id number] RISHABH: 07/27/21 00:[address]: Dwight Ritchie DEPT: CYTOLOGY RECD BY: Emily Walsh ENTERED: 07/27/21 13:09 SP TYPE: Fluid OTHR DR: Alysha Amaya, KASIA Tissues: THORACIC FLUID Procedures: Special Stain Group II Surgery Specimen Level IV Cytospin Fluid HEADER OPERATION: Ultrasound-guided right thoracentesis PRE-OP DIAGNOSIS: Pleural effusion TISSUE SUBMITTED: Thoracentesis fluid for cytology DIAGNOSIS CYTOLOGY Thoracentesis fluid for cytology (cytospin and cell block): Malignant cells present derived from metastatic non-small cell carcinoma, favor adenocarcinoma, consistent with colonic primary. See comment. SJ:twan 07/28/2021 COMMENT Immunohistochemistry ([id number]) supports the above diagnosis. Please make reference to previous specimens ([id number]) paracentesis fluid for cytology with diagnosis of??malignant cells present derived from non-small cell carcinoma? and ([id number]) colonic polyp at hepatic flexure, ascending colon, biopsy and cecum, biopsy with diagnosis of ?poorly differentiated adenocarcinoma.? Case has been reviewed in consultation with Dr. Londono who concurs with the above diagnosis. IDC:AM CYTOLOGY STUDY Slides are reviewed. CYTOLOGY GROSS Received is 100 ml of red cloudy fluid labeled with the patient's name and and designated per the requisition as thoracentesis. Submitted for cytology preparation including cell block. / twan 07/27/2021 TC:0 CPT: 33764, 46921
--- NOTE | 2021-07-27 | IMM_PTH ---
PATIENT: YENY CERON LOC: MS3 U#:[id number] AGE/SX: 50/F [place] [facility] [place]: Dr. David Pickering DO : 1970 BED: 1 DIS: 07/28/2021 SPEC #: [id number] RECD: 07/28/21 10:27 STATUS: SOUT REQ #: [id number] RISHABH: 07/27/21 00:[address]: Dwight Ritchie DEPT: IMMUNOHISTOCHEMISTRY RECD BY: Scarlet Steiner ENTERED: 07/28/21 10:29 SP TYPE: IMMUNO OTHR DR: MD Dr. David Le DO Dr. Nicholas F Kotsonis, MD Lori Mullins, OPERATIONS SCHEDULER-C Tissues: THORACIC FLUID Procedures: Wilmer Ret (add) CK20 (add) CK5-6 (add) CK7 (add) CK8 (add) MACRO (add) TTF1 (add) Vimentin (add) Pankeratin (initial) Comments: @ Ordering doctor for CALRET. edited from to @ by SWAPNIL at 07/28/21 1030 @ Ordering doctor for CK20. edited from to @ by SWAPNIL at 07/28/21 1030 @ Ordering doctor for CK5-6. edited from to @ by SWAPNIL at 07/28/21 1030 @ Ordering doctor for CK7. edited from to @ by SWAPNIL at 07/28/21 1030 @ Ordering doctor for CK8. edited from to @ by SWAPNIL at 07/28/21 1030 @ Ordering doctor for MACRO. edited from to @ by RGOOD at 07/28/21 1030 @ Ordering doctor for TTF1. edited from to @ by RGOOD at 07/28/21 1030 @ Ordering doctor for VIM. edited from to DR.JWRIGH Durán by RGOOD at 07/28/21 1030 @ Ordering doctor for PANK edited from to @ by RGOOD at 07/28/21 1030 @ Submitting doctor edited from to @ by RGOOD at 07/28/21 1030 PHYSICIAN & [place] [id number] SPECIMEN INFORMATION: Tissue Source: Thoracentesis fluid Clinical Info: Pleural effusion Specimen Number: [id number] CPT code: 69111, 71074 x8 METHODOLOGY: Deparaffinized sections of prefer/formalin-fixed tissue or PAP/DQ stained slides are incubated with monoclonal/polyclonal antibodies/oligonucleotide probes. Localization is made via biotin free immunoperoxidase method. Appropriate controls are performed and reacted as expected. Results on target cell population are indicated in the following table: RESULTS: ANTIBODY / CLONE RESULT AE1-3 (AE1/AE3/PCK26) positive CK7 (OV-TL12/30) negative CK8 (30eucuL07) positive CK20 (KS20.8) positive Vimentin (V9) negative Macro (HAM-56) negative TTF-1 (8G7G3/1) negative CALRET (polyclonal) negative CK5-6 (D5 & 1684) negative These tests were developed and their performance characteristics determined by [facility]. They may not have been cleared or approved by the U.S. Food and Drug Administration. The FDA has determined that such clearance or approval is not necessary. The above immunohistochemical/dualISH markers are ordered and reviewed by the Pathologist. INTERPRETATION: Thoracentesis fluid (cell block): Malignant cells present derived from metastatic non-small cell carcinoma, favor adenocarcinoma, consistent with colonic primary. SJ:twan 07/28/2021
--- NOTE | 2021-07-27 06:52 | EKG12_ITS ---
Test Reason : SOB Blood Pressure : / mmHG Vent. Rate : 121 BPM Atrial Rate : 121 BPM P-R Int : 140 ms QRS Dur : 082 ms QT Int : 314 ms P-R-T Axes : 037 024 031 degrees QTc Int : 445 ms Sinus tachycardia Otherwise normal ECG Confirmed by ADEBAYO TRENT, NGUYEN ([id number]), editor dictionary JONNY LAN ([id number]) on 07/28/2021 2:23:54 P M Referred By: JENNY Confirmed By:DARLENE FIORE MD
--- NOTE | 2021-07-27 07:00 | CT_ITS ---
We are attempting to reach an attending provider to discuss findings. An addendum with communication details will be sent when the communication is complete. EXAM: CT ANGIOGRAPHY CHEST WITHOUT AND WITH INTRAVENOUS CONTRAST : 1970 CLINICAL INDICATION: chest pain TECHNIQUE: Helically acquired angiography images were obtained of the chest without and with intravenous contrast. This CT exam was performed using one or more of the following dose reduction techniques: automated exposure control, adjustment of the mA and/or kV according to patient size, and/or use of iterative reconstruction technique. This report was created using [employer] report generation technology. MIP reconstructed images were created and reviewed. CONTRAST: IV 100mL Isovue-370 COMPARISON: 07/23/21 FINDINGS: PULMONARY ARTERIES: Multiple filling defects consistent with acute pulmonary emboli within lobar and segmental pulmonary artery branches in the lower lobes and upper lobes. Normal in caliber. AORTA: Unremarkable. Normal in caliber. No evidence of dissection. GREAT VESSELS OF AORTIC ARCH: Unremarkable. Normal in caliber. No evidence of dissection. LUNGS AND PLEURAL SPACES: Continued moderate bilateral pleural effusions. Bilateral lower lobe and lingular airspace disease. No mass. HEART: Evidence of right heart strain, with RT/LV ratio measuring 1.14 No pericardial effusion. MEDIASTINUM: Multiple prominent mediastinal and hilar lymph nodes are again noted which may be reactive, but follow-up is recommended. Esophagus is unremarkable. No hiatal hernia. THYROID: Unremarkable. No thyroid lesions. BONES/JOINTS: Degenerative changes of the spine. No suspicious lytic or blastic abnormality. TUBES, LINES AND DEVICES: Right chest port. CT/CTA Chest W/WO Contrast IMPRESSION: 1. Multiple acute bilateral pulmonary emboli. 2. Continued moderate bilateral pleural effusions. 3. Bilateral lower lobe and lingular airspace disease. This may indicate atelectasis or pneumonia. Individualized dose optimization techniques were used for this CT. at 0738 Reported and signed by: Arie Mcgowan MD Electronically Signed: Arie Mcgowan MD at 7:37 EST Tel , Service support ,
[2021-07-27 07:02] LABS: Absolute Lymphocyte Count 0.46 X10^3/uL (0.83-4.51); Absolute Neutrophil Count 14.5 X10^3/uL (2.0-7.7); Basophil# 0.03 X10^3/uL; Basophil% 0.2 % (0-1); Eosinophil# 0.17 X10^3/uL; Hematocrit 37.2 % (37-47); Hemoglobin 11.9 g/dL (12.0-15.0); Lymphocyte # 0.46 X10^3/ul (0.83-4.51); Lymphocyte % 2.8 % (19-41); Mean Corpuscular Hgb 26.6 pg (27.0-32.0); Mean Platelet Vol. 10.4 fl (6.2-12.0); Monocyte# 1.08 X10^3/uL; Monocyte% 6.6 % (0-10); NRBC Flagged by Analyzer 0 % (0-5); Neutrophil # 14.53 X10^3/uL (2.7-7.7); Neutrophil % 88.2 % (47-70); POSITIVE DIFFERENTIAL YES; Platelet Count 338 K/mm3 (150-450); RBC Distribution Width CV 13.7 % (11.6-14.6); RBC Distribution Width SD 41.9 fl (35.1-43.9); Red Blood Count 4.48 M/mm3 (4.2-5.4); White Blood Count 16.5 K/mm3 (4.4-11.0)
[2021-07-27 07:03] LABS: Differential Indicated SCAN CRITERIA MET
--- NOTE | 2021-07-27 07:08 | EDS_ITS ---
HPI History of Present Illness Chief Complaint: Shortness of Breath Informant: patient Onset/Context/Timing Onset: Today Context: sudden Timing: Continuous Current Severity: Mild Maximum Severity: Moderate Worsened by: Nothing Relieved by: Nothing Associated Symptoms Chest Pain: Positive for Sharp Narrative Narrative: 50-year-old seenMale malignant ascites. recently diagnosed with colon CA with prior history of DVT. Currently undergoing chemotherapy and supposed to be infused today. No known cardiac history. States that from her recent hospitalization she went home on oxygen. This morning she awoke around 2:30 in the morning with left lateral rib cage pain. Denies hemoptysis. No prior history of PE. PE Risk Factors: Positive for Cancer, Prior DVT or PE, Recent immobilization and Recent surgery; Negative for OCP + Smoking + > 35 and Recent travel Prior similar symptoms: No Recent Illness/Hospitalization: Yes PFSH PFSH Medical History Abnormal CT scan Anxiety Anxiety and depression At high risk for deep venous thrombosis Back pain Chronic cough Colon cancer Depression DVT (deep venous thrombosis) Former tobacco use Gastric reflux GERD (gastroesophageal reflux disease) History of steroid therapy Left leg pain Malignant ascites Migraine headache Morbid obesity Post-menopausal Shortness of breath on exertion Wears dentures Wears glasses Home Medications buspirone 10 mg PO BID 06/13/21 [History Last Taken 06/11/21] escitalopram oxalate 20 mg PO DAILY 06/13/21 [History Last Taken 06/11/21] dicyclomine 10 mg capsule 10 mg PO TID #90 cap 07/01/21 [Rx Last Taken Unknown] oxycodone 10 mg PO Q4H PRN PRN 7 Days #30 tab 07/26/21 [Rx Last Taken Unknown] oxycodone [OxyContin] 15 mg PO BID 7 Days #14 tab 07/26/21 [Rx Last Taken Unknown] Allergy/AdvReac Type Severity Reaction Status Date / Time No Known Allergies Allergy Verified 07/27/21 06:35 Family History Father Diabetes Mother Hypertension Brother Hypertension Surgical History History of cholecystectomy (~06/2021) S/P section S/P rotator cuff repair Social History household members: family Smoking Status: Former smoker how long ago did patient quit smoking: Quit 2 years prior, smoked 1/2 ppd since she was a teenager until quitting. alcohol intake: never substance use type: does not use ROS ROS ED ROS Narrative Denies. Review of Systems ROS Unobtainable: Denies due to encephalopathy Constitutional Constitutional ED: Denies chills or fever(s) Eyes Eyes: Denies change in vision ENT ENT ED: Denies ear pain Cardiovascular Cardiovascular: Reports chest pain; Denies palpitations or racing heartbeat Respiratory/Chest Respiratory/Chest: Reports dyspnea; Denies cough or sputum Gastrointestinal Gastrointestinal: Denies abdominal pain, diarrhea, nausea or vomiting Genitourinary Genitourinary ED: Denies dysuria or hematuria Musculoskeletal Musculoskeletal: Denies myalgias Integumentary Denies rash Neurologic Neurologic: Denies headache(s) Psychiatric Psychiatric: Denies depression Endocrine Endocrinology: Denies polyuria Hematologic/Lymphatic Hematologic/Lymphatic: Denies easy bruising Allergic/Immunologic Allergic/Immunologic ED: Denies urticaria EXAM Physical Exam Narrative Exam Narrative: Middle-aged female vital signs stable on 2 L oxygen she is 93% not hypoxic on O2. She is on chronic O2. HEENT exam unremarkable. Neck nontender. Lungs clear to auscultation bilaterally. Heart tachycardic rate about 120. Left rib cage is reproducibly tender. But there is no ecchymosis or bruising and no history of trauma. Abdomen is soft she is mildly distended with ascites. Moving all 4 extremities. Calves are nontender without edema. Neurologically she is awake alert. Const Vital Signs: 07/27/21 06:29 07/27/21 06:35 07/27/21 06:57 Temperature 96.9 F L Temperature Source Temporal Pulse Rate 124 H Respiratory Rate 22 H Respiratory Effort Short of Breath Respiratory Pattern Tachypnea Blood Pressure 161/63 H Blood Pressure Mean 95 Pulse Ox 93 96 Oxygen Delivery Method Nasal Cannula Nasal Cannula Nasal Cannula Oxygen Flow Rate (L/min) 2 2 2 07/27/21 08:40 Temperature Temperature Source Pulse Rate 111 H Respiratory Rate 26 H Respiratory Effort Respiratory Pattern Blood Pressure 148/84 H Blood Pressure Mean 105 Pulse Ox 95 Oxygen Delivery Method Oxygen Flow Rate (L/min) Positive well nourished, well developed and obese; Negative for cachectic, contractures or unkempt General Appearance ED: well developed; Negative for unkempt, cachectic or contractures Nutritional Appearance: obese; Negative for cachectic HEENT Reports moist mucous membranes atraumatic; Negative for trauma or tenderness Eyes PERRL and EOMs intact bilaterally General Eye ED: Negative for pale conjunctiva or scleral icterus Neck no lymphadenopathy, supple, no meningeal signs and no JVD General: Negative for tenderness Resp normal respiratory effort and clear to auscultation bilaterally Auscultation: Negative for rales, rhonchi or wheezes Cardio regular rhythm, S1 normal heart sound, S2 normal heart sound and no murmurs; Negative for regular rate Rate: tachycardic GI non-tender Auscultation: normoactive bowel sounds Palpation: soft; Negative for tender, guarding or rebound tenderness present Back/Spine normal to inspection Extremity normal to inspection General Extremety ED: Negative for edema or tenderness General Extremity: Negative for edema Neuro oriented x3 Sensorium / Orientation: alert, oriented to person, oriented to place and oriented to time; Negative for orientation impaired or confused Motor Exam: strength 5/5 throughout Psych mental status grossly normal Appearance: Negative for unkempt Thought Process: normal thought process Skin no wounds Lesions: no lesions Rashes: no rashes MDM MDM MDM Narrative Medical decision making narrative: 50-year-old with known colon cancer with a prior DVT complaining of left lateral rib cage and chest pain. Rule out DVT versus cardiac etiology versus other. She undergo a CAT scan plus labs. Lab Data Attestation: I reviewed the patient's lab results. Lab results narrative: CBC shows an elevated white count 16.5. Hemoglobin 11.9. Platelets of 338.` Electrolytes sodium 130. Gap 11. BUN of 14 creatinine 0.67. Liver enzymes unremarkable. Lipase 47. Labs: Laboratory Results - last 24 hr 07/27/21 07/27/21 06:57 06:57 WBC 16.5 H RBC 4.48 Hgb 11.9 L Hct 37.2 MCV 83.0 MCH 26.6 L MCHC 32.0 RDW Std Deviation 41.9 RDW Coeff of Mohsen 13.7 Plt Count 338 MPV 10.4 Immature Gran % (Auto) 1.200 H Neut % (Auto) 88.2 H Lymph % (Auto) 2.8 L Hitchcock % (Auto) 6.6 Eos % (Auto) 1.0 Baso % (Auto) 0.2 Absolute Neuts (auto) 14.5 H Absolute Lymphs (auto) 0.46 L Nucleated RBC % 0 Differential Comment SCANNED Sodium 130 L Potassium 4.2 Chloride 94 L Carbon Dioxide 25.0 Anion Gap 11 BUN 14 Creatinine 0.67 Estim Creat Clear Calc 86.74 Est GFR (MDRD) Af Amer 120 Est GFR (MDRD) Non-Af 99 BUN/Creatinine Ratio 20.9 H Glucose 100 Calcium 8.9 Total Bilirubin 0.40 AST 24 ALT 12 L Alkaline Phosphatase 79 Troponin I High Sens 5 Total Protein 6.7 Albumin 1.9 L Globulin 4.8 H Albumin/Globulin Ratio 0.4 L Lipase 47 L Radiography Chest X-Ray - ED: 1 View, Read by ED Physician, Heart, Mediastinum, Bony Structures, Chronic Changes, Right Effusion and Left Effusion Diagnostic Testing: Clinical Impression(s) from Imaging Studies Chest CTA 07/27/21 07:00 IMPRESSION: 1. Multiple acute bilateral pulmonary emboli. 2. Continued moderate bilateral pleural effusions. 3. Bilateral lower lobe and lingular airspace disease. This may indicate atelectasis or pneumonia. Individualized dose optimization techniques were used for this CT. at 0738 Reported and signed by: Arie Mcgowan MD Electronically Signed: Arie Mcgowan MD at 7:37 EST Tel , Service support , ADDENDUM: 07/27/21 0752 IMPRESSION: 1. Multiple acute bilateral pulmonary emboli. 2. Continued moderate bilateral pleural effusions. 3. Bilateral lower lobe and lingular airspace disease. This may indicate atelectasis or pneumonia. Individualized dose optimization techniques were used for this CT. at 0738 Reported and signed by: Arie Mcgowan MD N.B. : The above Results were Read Back by Arie Mcgowan MD to MD Chau, and understanding confirmed on 07/27/2021 07:45:29 (ET). Electronically Signed: Arie Mcgowan MD at 7:37 EST Tel , Service support , ADDENDUM: 07/27/21 0757 IMPRESSION: 1. Multiple acute bilateral pulmonary emboli. 2. Continued moderate bilateral pleural effusions. 3. Bilateral lower lobe and lingular airspace disease. This may indicate atelectasis or pneumonia. Individualized dose optimization techniques were used for this CT. at 0738 Reported and signed by: Arie Mcgowan MD N.B. : The above Results were Read Back by Arie Mcgowan MD to Santiago [id number], and understanding confirmed on 07/27/2021 07:50:52 (ET). Electronically Signed: Arie Mcgowan MD at 7:37 EST Tel , Service support , Chest X-Ray 07/27/21 07:15 IMPRESSION: Moderate pleural effusions and bilateral lower lobe airspace disease. This may indicate atelectasis or infection. at 0739 Reported and signed by: Arie Mcgowan MD Electronically Signed: Arie Mcgowan MD at 7:38 EST Tel , Service support , Portable chest x-ray interpreted by myself and radiologist shows bilateral pleural effusions. Chronic changes. Rhythm Strip Rhythm Strip: Sinus Tach Rate: 121 Ectopy: None EKG Initial EKG: Attestation: I personally reviewed and interpreted this EKG as follows: Interpretation: Sinus Rhythm, No Acute Injury Pattern and Sinus Tachycardia Comments: Sinus tachycardia rate of 121 no acute signs of RI or ischemia. Discharge Plan Dx/Rx/DC Orders Clinical Impression: Pulmonary emboli, Colon cancer, Malignant ascites, Bilateral pleural effusion Disposition Disposition: Acute Care Hospital [facility]
--- NOTE | 2021-07-27 07:15 | RAD_ITS ---
EXAM: XR CHEST, 1 VIEW : 1970 CLINICAL INDICATION: shortness of breath TECHNIQUE: Frontal view of the chest. This report was created using [employer] report generation technology. COMPARISON: 07/25/21 FINDINGS: LUNGS AND PLEURAL SPACES: Moderate pleural effusions and bilateral lower lobe airspace disease. No pneumothorax. HEART: Unremarkable. Cardiac silhouette not enlarged. MEDIASTINUM: Central airways and mediastinal contour are unremarkable. BONES/JOINTS: Unremarkable. SOFT TISSUES: Unremarkable. TUBES, LINES AND DEVICES: Right chest port. RAD/Chest 1 View (Portable) IMPRESSION: Moderate pleural effusions and bilateral lower lobe airspace disease. This may indicate atelectasis or infection. at 0739 Reported and signed by: Arie Mcgowan MD Electronically Signed: Arie Mcgowan MD at 7:38 EST Tel , Service support ,
[2021-07-27 07:24] LABS: ALB/GLOB Ratio 0.4 RATIO (0.9-2.4); AST(SGOT) 24 U/L (15-37); Alanine Aminotransfer ALT/SGPT 12 U/L (13-56); Albumin, Serum 1.9 g/dL (3.2-5.0); Alkaline Phosphatase 79 U/L (45-117); Anion Gap 11 (5-15); BUN 14 mg/dL (7-18); BUN/Creat Ratio 20.9 RATIO (10-20); Calcium,Total 8.9 mg/dL (8.5-10.1); Chloride 94 mmol/L (98-107); Creatinine, Serum 0.67 mg/dL (0.55-1.02); EST Glomerular Filtration Rate 99 mL/min (>60); Est Glom Filt Rate - Afr Amer 120 mL/min (>60); Estimated Creatinine Clearance 86.74 ml/min; Globulin 4.8 g/dL (2.2-4.2); Glucose 100 mg/dL (74-106); Lipase 47 U/L (73-393); Potassium 4.2 mmol/L (3.5-5.1); Protein, Total 6.7 g/dL (6.4-8.2); Sodium Level 130 mmol/L (136-145); Troponin-I HS 5 pg/mL (3.0-54.0)
[2021-07-27 08:02] LABS: Differential Comment SCANNED
--- NOTE | 2021-07-27 09:15 | NURSING ---
DR GARZON CALLED BACK FOR DR SOMMERS
[2021-07-27] MEDS: morphine 8 MG/ML Syringe 6 MG IV (09:19)
--- NOTE | 2021-07-27 09:28 | US_ITS ---
PROCEDURE: ULTRASOUND GUIDED THORACENTESIS. DATE: 07/27/2021. INDICATION: Female, 50 years old. Right pleural effusion. PHYSICIAN: Carlitos Roberts M.D. PROCEDURE: The risks, benefits, and alternatives to the procedure were explained to the patient. The specific risks of bleeding, infection, and pneumothorax requiring chest tube insertion were discussed and accepted. Written informed consent was obtained. Ultrasonographic evaluation of the right lower pleural space was carried out. An adequate pocket was identified. The patient was placed in the sitting, upright position. The overlying skin was prepped and draped in sterile fashion. 1% lidocaine was administered subcutaneously for local anesthesia. Under ultrasound guidance, a 5 Welsh thoracentesis needle/catheter system was advanced into the right posterior lower pleural fluid collection. Approximately 400 mL of dark ramez-colored fluid was drained. The catheter was removed, and a sterile dressing was applied. A specimen was collected and sent to the laboratory for analysis, as requested by the referring clinician. The patient tolerated the procedure well. A chest x-ray was ordered. US/Thoracentesis W US IMPRESSION: Ultrasound-guided right thoracentesis. Electronically Signed: Carlitos Roberts MD at 10:26 EST , Service support ,
[2021-07-27 09:36] LABS: International Normalized Ratio 1.6; Prothrombin Time (Protime)PT. 17.9 SECONDS (11.7-14.9)
[2021-07-27 09:37] LABS: Partial Thromboplast Time 28.9 Seconds (24.1-36.2)
--- NOTE | 2021-07-27 09:56 | NURSING ---
MED SURG DURAN PE'S, COLON CA, PLEURAL EFFUSIONS
--- NOTE | 2021-07-27 10:10 | RAD_ITS ---
STUDY: X-RAY CHEST REASON FOR EXAM: Female, 50 years old. POST THORA TECHNIQUE: AP inspiration and expiration views. COMPARISON: Comparison is made with prior study dated 07/27/2021 at 7:21 AM. FINDINGS: The patient is status post right thoracentesis. There is no evidence of pneumothorax. RAD/Chest Insp/Exp 2 View IMPRESSION: No evidence of pneumothorax following the right thoracentesis. Electronically Signed: Carlitos Roberts MD at 10:27 EST , Service support ,
[2021-07-27 10:29] LABS: Cytology, Body Fluid / CSF SEE PATHOLOGY REPORT
[2021-07-27 11:08] LABS: Body Fluid Mononuclear WBC # 2.849 10^3/uL; Body Fluid Mononuclear WBC % 82.8 %; Body Fluid Polynuclear WBC # 0.593 10^3/uL; Body Fluid Polynuclear WBC % 17.2 %; Body Fluid Total Cells Counted 5.931 10^3/ul; Red Cell Count/Body Fluid 0.009 10^6/ul; White Blood Count/Body Fluid 3.442 10^3/uL
[2021-07-27 11:18] LABS: LDH,Body Fluid 407 Units/l (Not Establ.); Protein, Body Fluid 4.1 g/dL (Not Establ.)
[2021-07-27] MEDS: morphine 8 MG/ML Syringe IV (11:33)
[2021-07-27 11:52] LABS: International Normalized Ratio 1.6; Prothrombin Time (Protime)PT. 17.9 SECONDS (11.7-14.9)
[2021-07-27 11:53] LABS: Partial Thromboplast Time 29.1 Seconds (24.1-36.2)
[2021-07-27 12:00] LABS: LDH 246 U/L (84-246)
[2021-07-27 12:05] LABS: Lymphocytes 1 %; Neutrophil (Segs) 4 %
[2021-07-27 12:06] LABS: Other Cell Type/BF 95 %
[2021-07-27 12:13] LABS: Appearance/Body Fluid CLOUDY; Auto B Fluid Analyzer BKGD Ct COUNTS W/IN LIMITS (W/IN LIMITS); Color/Body Fluid YELLOW; Glucose, Body Fluid 46 mg/dL (40-70); Source- Body Fluid THORACENTESIS
[2021-07-27 12:14] LABS: Body Fluid QC Type(s) BF1Q
--- NOTE | 2021-07-27 14:28 | HP.PCM.HOS_ITS ---
HPI - General General Date of Admission: 07/27/21 HPI Narrative YENY CERON, is a 50 F who presents with shortness of breath and chest pain. She was recently admitted with worsening abdominal pain and was found to have malignant ascites secondary to metastatic colon cancer. Some ascitic fluid was drained at that time which demonstrated cells favoring adenocarcinoma. Also at that time she had a CT scan on 07/23/2020 one of her chest which demonstrated mediastinal and bilateral hilar adenopathy with bilateral pleural effusions. She was discharged home on 2 L of oxygen but represents the next day with worsening shortness of breath and chest pain. CT of the chest demonstrates bi lateral peripheral pulmonary embolisms. She was able to go from the ED to get a thoracentesis done, which appears 400 cc was removed from the right lung. This will be sent for cytology and fluid evaluation.. She remains tachycardic but she has been for some time prior to this admission and her troponin is negative which indicates that she is not having any significant right heart strain, EKG shows no ischemia. No need for an echo at this time. She has had a leukocytosis since 07/08/2021 and she remains afebrile. [facility] Medical History Abnormal CT scan Anxiety Anxiety and depression At high risk for deep venous thrombosis Back pain Chronic cough Colon cancer Depression DVT (deep venous thrombosis) Former tobacco use Gastric reflux GERD (gastroesophageal reflux disease) History of steroid therapy Left leg pain Malignant ascites Migraine headache Morbid obesity Post-menopausal Shortness of breath on exertion Wears dentures Wears glasses Home Medications buspirone 10 mg PO BID 06/13/21 [History Last Taken 06/11/21] escitalopram oxalate 20 mg PO DAILY 06/13/21 [History Last Taken 06/11/21] dicyclomine 10 mg capsule 10 mg PO TID #90 cap 07/01/21 [Rx Last Taken Unknown] oxycodone 10 mg PO Q4H PRN PRN 7 Days #30 tab 07/26/21 [Rx Last Taken Unknown] oxycodone [OxyContin] 15 mg PO BID 7 Days #14 tab 07/26/21 [Rx Last Taken Unkno wn] Allergy/AdvReac Type Severity Reaction Status Date / Time No Known Allergies Allergy Verified 07/27/21 06:35 Family History Father Diabetes Mother Hypertension Brother Hypertension Surgical History History of cholecystectomy (~06/2021) S/P section S/P rotator cuff repair Social History household members: family Smoking Status: Former smoker how long ago did patient quit smoking: Quit 2 years prior, smoked 1/2 ppd since she was a teenager until quitting. alcohol intake: never substance use type: does not use ROS Constitutional Constitutional: Denies chills, fatigue, fever(s) or malaise Eyes Eyes: Denies blurry vision ENT HEENT: Denies headache(s) or nasal discharge Cardiovascular Cardiovascular: Reports chest pain; Denies dyspnea on exertion or syncope Respiratory/Chest Respiratory/Chest: Reports cough and shortness of breath at rest; Denies shortness of breath with exertion Gastrointestinal Gastrointestinal: Denies constipation, diarrhea, nausea or vomiting Genitourinary Genitourinary: Denies dysuria Neurologic Neurologic: Denies focal weakness, numbness or tremor(s) Psychiatric Psychiatric: Denies anxiety or depression Vital Signs Vital Signs Vital Signs: 07/27/21 06:29 07/27/21 06:35 07/27/21 06:57 Temperature 96.9 F L Temperature Source Temporal Pulse Rate 124 H Pulse Rate [1 (Initial Baseline)] Pulse Rate [2] Pulse Rate [3] Respiratory Rate 22 H Respiratory Rate [1 (Initial Baseline)] Respiratory Rate [2] Respiratory Rate [3] Respiratory Effort Short of Breath Respiratory Pattern Tachypnea Blood Pressure 161/63 H Blood Pressure [1 (Initial Baseline)] Blood Pressure [2] Blood Pressure [3] Blood Pressure Mean 95 Blood Pressure Source Blood Pressure Position Blood Pressure Location Pulse Ox 93 96 Oxygen Delivery Method Nasal Cannula Nasal Cannula Nasal Cannula Oxygen Delivery Method [1 (Initial Baseline)] Oxygen Delivery Method [2] Oxygen Delivery Method [3] Oxygen Flow Rate (L/min) 2 2 2 Oxygen Flow Rate (L/min) [1 (Initial Baseline)] Oxygen Flow Rate (L/min) [2] Oxygen Flow Rate (L/min) [3] 07/27/21 08:40 07/27/21 10:00 07/27/21 11:08 Temperature 98 F Temperature Source Temporal Pulse Rate 111 H 115 H Pulse Rate [1 (Initial Baseline)] 127 H Pulse Rate [2] 124 H Pulse Rate [3] 117 H Respiratory Rate 26 H 27 H Respiratory Rate [1 (Initial Baseline)] 32 H Respiratory Rate [2] 36 H Respiratory Rate [3] 30 H Respiratory Effort Short of Breath Respiratory Pattern Tachypnea Blood Pressure 148/84 H 139/87 H Blood Pressure [1 (Initial Baseline)] 155/83 H Blood Pressure [2] 142/80 H Blood Pressure [3] 135/91 H Blood Pressure Mean 105 104 Blood Pressure Source Blood Pressure Position Blood Pressure Location Pulse Ox 95 93 Oxygen Delivery Method Room Air Oxygen Delivery Method [1 (Initial Baseline)] Nasal Cannula Oxygen Delivery Method [2] Nasal Cannula Oxygen Delivery Method [3] Nasal Cannula Oxygen Flow Rate (L/min) Oxygen Flow Rate (L/min) [1 (Initial Baseline)] 2 Oxygen Flow Rate (L/min) [2] 2 Oxygen Flow Rate (L/min) [3] 2 07/27/21 13:08 07/27/21 14:15 Temperature 97.5 F L Temperature Source Oral Pulse Rate 110 H 118 H Pulse Rate [1 (Initial Baseline)] Pulse Rate [2] Pulse Rate [3] Respiratory Rate 21 H 18 Respiratory Rate [1 (Initial Baseline)] Respiratory Rate [2] Respiratory Rate [3] Respiratory Effort Respiratory Pattern Blood Pressure 139/87 H 142/85 H Blood Pressure [1 (Initial Baseline)] Blood Pressure [2] Blood Pressure [3] Blood Pressure Mean 104 104 Blood Pressure Source Monitor Blood Pressure Position Semi-Fowlers Blood Pressure Location Right Arm Pulse Ox 94 94 Oxygen Delivery Method Nasal Cannula Oxygen Delivery Method [1 (Initial Baseline)] Oxygen Delivery Method [2] Oxygen Delivery Method [3] Oxygen Flow Rate (L/min) 3 Oxygen Flow Rate (L/min) [1 (Initial Baseline)] Oxygen Flow Rate (L/min) [2] Oxygen Flow Rate (L/min) [3] Weight Weight: 249 lb 5.485 oz Body Mass Index (BMI) 42.7 Physical Exam Const alert and oriented x3 Constitutional Narrative: Appears to be in pain General Appearance: cooperative HEENT normocephalic and moist oral mucous membranes Eyes PERRL, EOMs intact bilaterally and conjunctivae normal Neck supple and no JVD Resp normal respiratory effort, no retractions and no use of accessory muscles Auscultation: diminished lung sounds bilateral lower; Negative for crackles, rales, rhonchi or wheezes Cardio regular rhythm, S1 normal heart sound, S2 normal heart sound and no murmurs Rate: tachycardic GI soft to palpation, non-tender and non-distended; Negative for hepatosplenomegaly Extremity no clubbing, cyanosis or edema Skin no rashes or lesions noted Neuro no focal motor deficits and no sensory deficits noted Psych affect normal Appearance: appropriate Results Lab / Micro Data Result Diagrams: 07/27/21 06:57 07/27/21 06:57 Labs: Laboratory Results - last 24 hr 07/27/21 06:57: Sodium 130 L, Potassium 4.2, Chloride 94 L, Carbon Dioxide 25.0, Anion Gap 11, BUN 14, Creatinine 0.67, Estim Creat Clear Calc 86.74, Est GFR (MDRD) Af Amer 120, Est GFR (MDRD) Non-Af 99, BUN/Creatinine Ratio 20.9 H, Glucose 100, Calcium 8.9, Total Bilirubin 0.40, AST 24, ALT 12 L, Alkaline Phosphatase 79, Troponin I High Sens 5, Total Protein 6.7, Albumin 1.9 L, Globulin 4.8 H, Albumin/Globulin Ratio 0.4 L, Lipase 47 L 07/27/21 06:57: WBC 16.5 H, RBC 4.48, Hgb 11.9 L, Hct 37.2, MCV 83.0, MCH 26.6 L , MCHC 32.0, RDW Std Deviation 41.9, RDW Coeff of [place] 13.7, Plt Count 338, MPV 10.4, Immature Gran % (Auto) 1.200 H, Neut % (Auto) 88.2 H, Lymph % (Auto) 2.8 L , [place] % (Auto) 6.6, Eos % (Auto) 1.0, Baso % (Auto) 0.2, Absolute Neuts (auto) 14.5 H, Absolute Lymphs (auto) 0.46 L, Nucleated RBC % 0, Differential Comment SCANNED 07/27/21 09:20: PT 17.9 H, INR 1.6, APTT 28.9 07/27/21 10:20: Fluid Glucose 46 07/27/21 10:20: Fluid Total Protein 4.1, Fluid LDH 407 07/27/21 10:20: Fluid Source THORACENTESIS, Fluid Color YELLOW, Fluid Appearance CLOUDY, Fluid WBC 3.442, Fluid RBC 0.009, Fluid Tot Cell Count 5.931 H, Fld Polynuclear WBCs # 0.593, Fld Polynuclear WBCs % 17.2, Fluid Mononuclear WBCs 2.849, Fld Mononuclear WBCs % 82.8, Fluid Neutrophils 4, Fluid Lymphocytes 1, Fluid Other Cells 95, Fl Pathologist Comment May follow, Fluid Comment 2 SEE COMMENT 07/27/21 11:35: Lactate Dehydrogenase 246 07/27/21 11:35: PT 17.9 H, INR 1.6, APTT 29.1 Micro: Microbiology 07/27/21 07:30 Nasal Secretion SARS-CoV-2 Antigen (Rapid) - Final Rhythm Strip Rhythm Strip: Sinus Tach Rate: 121 Ectopy: None Radiology Impression Chest CTA 07/27/21 07:00 IMPRESSION: 1. Multiple acute bilateral pulmonary emboli. 2. Continued moderate bilateral pleural effusions. 3. Bilateral lower lobe and lingular airspace disease. This may indicate atelectasis or pneumonia. Individualized dose optimization techniques were used for this CT. at 0738 Reported and signed by: Arie Mcgowan MD Electronically Signed: Arie Mcgowan MD at 7:37 EST Tel , Service support , ADDENDUM: 07/27/21 0752 IMPRESSION: 1. Multiple acute bilateral pulmonary emboli. 2. Continued moderate bilateral pleural effusions. 3. Bilateral lower lobe and lingular airspace disease. This may indicate atelectasis or pneumonia. Individualized dose optimization techniques were used for this CT. at 0738 Reported and signed by: Arie Mcgowan MD N.B. : The above Results were Read Back by Arie Mcgowan MD to MD Chau, and understanding confirmed on 07/27/2021 07:45:29 (ET). Electronically Signed: Arie Mcgowan MD at 7:37 EST Tel , Service support , ADDENDUM: 07/27/21 0757 IMPRESSION: 1. Multiple acute bilateral pulmonary emboli. 2. Continued moderate bilateral pleural effusions. 3. Bilateral lower lobe and lingular airspace disease. This may indicate atelectasis or pneumonia. Individualized dose optimization techniques were used for this CT. at 0738 Reported and signed by: Arie Mcgowan MD N.B. : The above Results were Read Back by Arie Mcgowan MD to Santiago [id number], and understanding confirmed on 07/27/2021 07:50:52 (ET). Electronically Signed: Arie Mcgowan MD at 7:37 EST Tel , Service support , Chest X-Ray 07/27/21 07:15 IMPRESSION: Moderate pleural effusions and bilateral lower lobe airspace disease. This may indicate atelectasis or infection. at 0739 Reported and signed by: Arie Mcgowan MD Electronically Signed: Arie Mcgowan MD at 7:38 EST Tel , Service support , Chest X-Ray 07/27/21 10:10 IMPRESSION: No evidence of pneumothorax following the right thoracentesis. Electronically Signed: Carlitos Roberts MD at 10:27 EST , Service support , Assessment & Plan Assessment/Plan (1) Pulmonary emboli: (2) Bilateral pleural effusion: PLAN: 1. Acute on chronic hypoxic respiratory failure secondary to bilateral PEs and bilateral pleural effusions -We will continue with the heparin drip since she already had her right thoracentesis done today, will discontinue medication at midnight and recheck labs in the morning in anticipation of a left thoracentesis. -Also obtain a chest x-ray to make sure that there is not a pneumothorax on the contralateral side prior to the procedure -We will likely anticipate discharge on Eliquis for convenience of the patient for blood thinner, her clots are due to her cancer -She will need to follow-up with her oncologist on discharge -We will obtain fluid studies as well as cytology -Her tachycardia and her leukocytosis are likely consistent with the ascites and the pleural effusions as well as the PEs 2. Colon cancer with malignant ascites -She is in the pulmonary stages of work-up for colon cancer she was supposed to have her first dose of chemotherapy today -We will continue to monitor we will hold off any further paracenteses -We will continue with her pain medication that she was on at home 3. Anxiety/depression -Stable -Continue with BuSpar and Escitalopram DVT: Heparin drip Charges/Coding Visit Charges Inpatient E&M: 74495 Init Hosp L3
[2021-07-27] MEDS: oxyCODONE 5 MG Tablet 10 MG PO ×2 (14:44→18:48)
[2021-07-27] MEDS: Heparin Injection (Vial) 5,000 UNIT/ML VIAL 4000 UNIT IV (15:18)
[2021-07-27] MEDS: HEPARIN/D5w 25,000 UNITS 25,000 UNITS/250 ML IV.SOLN. 10 UNITS IV (15:19)
--- NOTE | 2021-07-27 17:57 | NURSING ---
Pt sitting up in chair. still having discomfort in the left upper quadrant. Pt states the OxyIr has helped. pt denies needs at this time.
--- NOTE | 2021-07-27 18:33 | NURSING ---
Pt remains up in chair. states she has been nauseated now since trying to eat. Orders received for Zofran.
[2021-07-27] MEDS: Ondansetron 4 MG/2 ML Vial IV (18:48)
[2021-07-27] MEDS: 0.9% Saline Lock 10 ML Syringe IV (18:49)
[2021-07-27] MEDS: busPIRone 5 MG Tablet 10 MG PO (21:21)
[2021-07-27] MEDS: oxyCODONE CR 15 MG Tablet PO (21:22)
[2021-07-27 22:19] LABS: Partial Thromboplast Time 32.6 Seconds (24.1-36.2)
[2021-07-28 03:33] VITALS: BP 141/80; PULSE 114; RESP 18; TEMP 36.8; O2SAT 96
[2021-07-28] MEDS: oxyCODONE 5 MG Tablet 10 MG PO (03:38)
[2021-07-28 05:51] LABS: Absolute Lymphocyte Count 0.53 X10^3/uL (0.83-4.51); Absolute Neutrophil Count 11.6 X10^3/uL (2.0-7.7); Basophil# 0.05 X10^3/uL; Basophil% 0.4 % (0-1); Eosinophil# 0.21 X10^3/uL; Eosinophils% 1.5 % (0-5); Hematocrit 37.2 % (37-47); Lymphocyte # 0.53 X10^3/ul (0.83-4.51); Lymphocyte % 3.9 % (19-41); Mean Corp Hgb Conc 32.3 g/dL (32-36); Mean Corpuscular Hgb 27.1 pg (27.0-32.0); Mean Platelet Vol. 10.3 fl (6.2-12.0); Monocyte# 1.09 X10^3/uL; NRBC Flagged by Analyzer 0 % (0-5); Neutrophil % 84.6 % (47-70); POSITIVE DIFFERENTIAL YES; Platelet Count 335 K/mm3 (150-450); RBC Distribution Width CV 13.9 % (11.6-14.6); RBC Distribution Width SD 42.8 fl (35.1-43.9); Red Blood Count 4.43 M/mm3 (4.2-5.4); White Blood Count 13.7 K/mm3 (4.4-11.0)
[2021-07-28 06:02] LABS: International Normalized Ratio 1.4; Prothrombin Time (Protime)PT. 16.1 SECONDS (11.7-14.9)
[2021-07-28] MEDS: Ondansetron 4 MG/2 ML Vial IV (06:06)
[2021-07-28] MEDS: 0.9% Saline Lock 10 ML Syringe IV (06:06)
[2021-07-28 06:21] LABS: Differential Indicated SCAN CRITERIA MET
[2021-07-28 06:41] LABS: Anion Gap 10 (5-15); BUN 14 mg/dL (7-18); BUN/Creat Ratio 22.3 RATIO (10-20); Calcium,Total 9.1 mg/dL (8.5-10.1); Chloride 96 mmol/L (98-107); Creatinine, Serum 0.63 mg/dL (0.55-1.02); EST Glomerular Filtration Rate 106 mL/min (>60); Est Glom Filt Rate - Afr Amer 128 mL/min (>60); Estimated Creatinine Clearance 92.25 ml/min; Glucose 94 mg/dL (74-106); Potassium 4.4 mmol/L (3.5-5.1); Sodium Level 131 mmol/L (136-145)
[2021-07-28 07:09] VITALS: O2SAT 96
[2021-07-28 07:37] VITALS: BP 133/89; PULSE 108; RESP 20; TEMP 36.4; O2SAT 100
--- NOTE | 2021-07-28 08:35 | CON.PCM.ON_ITS ---
Assessment & Plan Assessment/Plan (1) Colon cancer: Status: Acute Code(s): C18.9 - Malignant neoplasm of colon, unspecified Qualifiers: Colon location: overlapping sites Qualified Code(s): C18.8 - Malignant neoplasm of overlapping sites of colon Plan: metastatic with peritoneal carcinomatosis, malignant ascites and chest adenopathy. Cytology from thoracentesis right lung performed 07/27/2021 pending. CBC CMP reviewed and values are within acceptable parameters for treatment. It would be in the patient's best interest to initiate systemic chemotherapy with 5-FU based regimen, FOLFIRINOX, today. (2) Malignant ascites: Status: Acute Code(s): R18.0 - Malignant ascites Plan: In the absence of adequate disease control, fluid in her abdomen is likely to reaccumulate. Thin the need for a therapeutic paracentesis will now be challenging given the need for anticoagulation. Again, it would be in the patient's best interest to initiate systemic chemotherapy today. (3) Pulmonary emboli: Status: Acute Code(s): I26.99 - Other pulmonary embolism without acute cor pulmonale Qualifiers: Pulmonary embolism type: multiple subsegmental (without acute cor pulmonale) Qualified Code(s): I26.94 - Multiple subsegmental pulmonary emboli without acute cor pulmonale Plan: It appears primary team has plans to initiate DOAC. HPI Consult Data Date of Service:: 07/28/21 PCP / Referring Provider: KASIA Gupta Attending: Dr. David Pickering DO Chief Complaint Chief Complaint: Metastatic colon cancer History of Present Illness History of Present Illness: 50-year-old woman presented with abdominal pain, had colonoscopy on 07/13/2021. Was found to have congested mucosa and polyps in the cecum extending into the hepatic flexure. Pathology showed invasive adenocarcinoma in cecum, ascending colon and hepatic flexure. She had persistent abdominal pain, CT abdomen on 07/17/2021 showed mesenteric nodules with ascites. CEA on 07/19/2021 was 6.3. She developed ascites and presented to [facility] emergency department on 07/18/2021 with complaints of intractable abdominal pain. She subsequently underwent therapeutic and diagnostic paracentesis on 07/21/2021, cytology of which confirmed the presence of malignant cells favoring adenocarcinoma consistent with colonic primary. CT chest with contrast obtained 07/23/2021 demonstrates mediastinal and bilateral hilar adenopathy, bilateral pleural effusions. Underwent a second therapeutic paracentesis 07/25/2021 and was discharged home on 07/26/2021. She developed chest pain and abrupt shortness of breath presented again to [facility] emergency department as advised by oncology on 07/27/2021, CTA demonstrated several bilateral PEs and moderately sized bilateral pleural effusions and was admitted. Underwent right-sided thoracentesis yesterday, documented 400 mL removed from the right lung. Heparin initiated. Interval History Interval History: Upon entering the room the patient is sitting upright in bedside chair. Reports an improvement of dyspnea after thoracentesis yesterday. Describes a catching feeling sometimes during inspiration but denies chest pain or palpitations at this time. Verbalizes she is eager to get started with chemotherapy that was tentatively scheduled for yesterday. Abdominal pain well controlled at the present time with current analgesia. Constipation improved, last bowel movement earlier this morning. Advanced Directives Power of Genetic Counselor: Yes Living Will: Yes [facility] Medical History (Updated 07/28/21 @ 12:43 by Suzi Coello CHIEF WHEELAGE CLERK, CHIEF WHEELAGE CLERK-C) Abnormal CT scan Anxiety Anxiety and depression At high risk for deep venous thrombosis Back pain Chronic cough Colon cancer Depression DVT (deep venous thrombosis) Former tobacco use Gastric reflux GERD (gastroesophageal reflux disease) Heart burn History of steroid therapy Left leg pain Malignant ascites Migraine headache Morbid obesity Post-menopausal Shortness of breath on exertion Wears dentures Wears glasses Home Medications buspirone 10 mg PO BID 06/13/21 [History Last Taken 06/11/21] escitalopram oxalate 20 mg PO DAILY 06/13/21 [History Last Taken 06/11/21] oxycodone 10 mg PO Q4H PRN PRN 7 Days #30 tab 07/26/21 [Rx Last Taken Unknown] oxycodone [OxyContin] 15 mg PO BID 7 Days #14 tab 07/26/21 [Rx Last Taken Unknown] apixaban [Eliquis] 5 mg PO BID #49 tab 07/28/21 [Rx Last Taken Unknown] lidocaine-prilocaine 2.5 %-2.5 % topical cream 1 applic TOPICAL ONCE PRN 30 Days #30 g 07/28/21 [Rx Last Taken Unknown] omeprazole 20 mg capsule,delayed release 20 mg PO DAILY #30 cap 07/28/21 [Rx Last Taken Unknown] ondansetron 8 mg disintegrating tablet 8 mg PO Q8H PRN #30 tab 07/28/21 [Rx Last Taken Unknown] Allergy/AdvReac Type Severity Reaction Status Date / Time No Known Allergies Allergy Verified 07/27/21 06:35 Family History Father Diabetes Mother Hypertension Brother Hypertension Surgical History History of cholecystectomy (~06/2021) S/P section S/P rotator cuff repair Social History household members: family Smoking Status: Former smoker how long ago did patient quit smoking: Quit 2 years prior, smoked 1/2 ppd since she was a teenager until quitting. alcohol intake: never substance use type: does not use ROS ROS Narrative Negative except as documented in the interval HPI Physical Exam Const alert and oriented x3 General Appearance: cooperative HEENT normocephalic and moist oral mucous membranes Eyes PERRL, EOMs intact bilaterally and conjunctivae normal Neck supple and no JVD Resp normal respiratory effort, no retractions and no use of accessory muscles Auscultation: diminished lung sounds bilateral lower; Negative for crackles, rales, rhonchi or wheezes Cardio regular rhythm, S1 normal heart sound, S2 normal heart sound and no murmurs Rate: tachycardic GI soft to palpation, non-tender and non-distended; Negative for hepatosplenomegaly Extremity no clubbing, cyanosis or edema Skin no rashes or lesions noted Neuro no focal motor deficits and no sensory deficits noted Psych affect normal Appearance: appropriate Vital Signs Temperature 97.5 F L 07/28/21 07:37 Temperature Source Oral 07/28/21 07:37 Pulse Rate 108 H 07/28/21 07:37 Respiratory Rate 20 H 07/28/21 07:37 Respiratory Effort 07/28/21 08:02 Respiratory Depth Normal 07/28/21 08:02 Respiratory Pattern Normal 07/28/21 08:02 Blood Pressure 133/89 H 07/28/21 07:37 Blood Pressure Mean 103 07/28/21 07:37 Blood Pressure Source Monitor 07/28/21 07:37 Blood Pressure Position Sitting 07/28/21 07:37 Blood Pressure Location Right Arm 07/28/21 07:37 Pulse Ox 100 07/28/21 07:37 Oxygen Delivery Method Room Air 07/28/21 08:02 Oxygen Flow Rate (L/min) 3 07/28/21 03:33 Laboratory Results - last 24 hr 07/27/21 09:20: PT 17.9 H, INR 1.6, APTT 28.9 07/27/21 10:20: Fluid Glucose 46 07/27/21 10:20: Fluid Total Protein 4.1, Fluid LDH 407 07/27/21 10:20: Fluid Source THORACENTESIS, Fluid Color YELLOW, Fluid Appearance CLOUDY, Fluid WBC 3.442, Fluid RBC 0.009, Fluid Tot Cell Count 5.931 H, Fld Polynuclear WBCs # 0.593, Fld Polynuclear WBCs % 17.2, Fluid Mononuclear WBCs 2.849, Fld Mononuclear WBCs % 82.8, Fluid Neutrophils 4, Fluid Lymphocytes 1, Fluid Other Cells 95, Fl Pathologist Comment May follow, Fluid Comment 2 SEE COMMENT 07/27/21 11:35: Lactate Dehydrogenase 246 07/27/21 11:35: PT 17.9 H, INR 1.6, APTT 29.1 07/27/21 21:18: APTT 32.6 07/28/21 05:42: WBC 13.7 H, RBC 4.43, Hgb 12.0, Hct 37.2, MCV 84.0, MCH 27.1, MCHC 32.3, RDW Std Deviation 42.8, RDW Coeff of [place] 13.9, Plt Count 335, MPV 10.3, Immature Gran % (Auto) 1.600 H, Neut % (Auto) 84.6 H, Lymph % (Auto) 3.9 L , [place] % (Auto) 8.0, Eos % (Auto) 1.5, Baso % (Auto) 0.4, Absolute Neuts (auto) 11.6 H, Absolute Lymphs (auto) 0.53 L, Nucleated RBC % 0 07/28/21 05:42: PT 16.1 H, INR 1.4 07/28/21 05:42: Sodium 131 L, Potassium 4.4, Chloride 96 L, Carbon Dioxide 25.0, Anion Gap 10, BUN 14, Creatinine 0.63, Estim Creat Clear Calc 92.25, Est GFR (MDRD) Af Amer 128, Est GFR (MDRD) Non-Af 106, BUN/Creatinine Ratio 22.3 H, Glucose 94, Calcium 9.1 Microbiology 07/27/21 07:30 Nasal Secretion SARS-CoV-2 Antigen (Rapid) - Final Diagnostic Data Chest CTA 07/27/21 07:00 IMPRESSION: 1. Multiple acute bilateral pulmonary emboli. 2. Continued moderate bilateral pleural effusions. 3. Bilateral lower lobe and lingular airspace disease. This may indicate atelectasis or pneumonia. Individualized dose optimization techniques were used for this CT. at 0738 Reported and signed by: Arie Mcgowan MD Electronically Signed: Arie Mcgowan MD at 7:37 EST Tel , Service support , ADDENDUM: 07/27/21 0752 IMPRESSION: 1. Multiple acute bilateral pulmonary emboli. 2. Continued moderate bilateral pleural effusions. 3. Bilateral lower lobe and lingular airspace disease. This may indicate atelectasis or pneumonia. Individualized dose optimization techniques were used for this CT. at 0738 Reported and signed by: rAie Mcgowan MD N.B. : The above Results were Read Back by Arie Mcgowan MD to MD Chau, and understanding confirmed on 07/27/2021 07:45:29 (ET). Electronically Signed: Arie Mcgowan MD at 7:37 EST Tel , Service support , ADDENDUM: 07/27/217 IMPRESSION: 1. Multiple acute bilateral pulmonary emboli. 2. Continued moderate bilateral pleural effusions. 3. Bilateral lower lobe and lingular airspace disease. This may indicate atelectasis or pneumonia. Individualized dose optimization techniques were used for this CT. at 0738 Reported and signed by: Arie Mcgowan MD N.B. : The above Results were Read Back by Arie Mcgowan MD to Santiago [id number], and understanding confirmed on 07/27/2021 07:50:52 (ET). Electronically Signed: Arie Mcgowan MD at 7:37 EST Tel , Service support , Chest X-Ray 07/27/21 10:10 IMPRESSION: No evidence of pneumothorax following the right thoracentesis. Electronically Signed: Carlitos Roberts MD at 10:27 EST , Service support ,
--- NOTE | 2021-07-28 09:37 | NURSING ---
pt to ultrasound
--- NOTE | 2021-07-28 10:19 | PCM.DC ---
Discharge Instructions Diet Discharge Diet: No restrictions Activity Discharge Activity: Return to Normal Activity Follow Up Care Test Results: Test results from this visit will be discussed in further detail at your follow-up appointment, if applicable. Discharge Plan Admission Admit Date/Time: 07/27/21 11:20 Primary Reason for Your Visit: pulmonary embolism Attending Provider: David Pickering Primary Care Provider: Alysha Amaya Consulting Providers: Trung Schwarz Instructions Additional Instructions / Restrictions: remain on oxygen 3 liters/min continuously Start on Eliquis now Do not take Ibuprofen, aspirin, or Naproxin while on Eliquis Discharge Orders/Prescriptions Prescriptions: New Eliquis 5 mg tablet 5 mg PO BID Qty: 49 RF: 0 Continued dicyclomine 10 mg capsule 10 mg PO TID Qty: 90 RF: 0 buspirone 10 mg tablet 10 mg PO BID RF: 0 escitalopram oxalate 20 mg tablet 20 mg PO DAILY RF: 0 oxycodone [OxyContin] 15 mg Tablet,Oral Only,Ext.Rel.12 Hr 15 mg PO BID 7 Days Qty: 14 RF: 0 oxycodone 5 mg Tablet 10 mg PO Q4H PRN PRN (Reason: Abdominal Pain) 7 Days Qty: 30 RF: 0 Referrals / Follow Up: Trung Schwarz MD [NON-STAFF] - See Referral Note (today) Alysha Amaya NP-C [Primary Care Provider] - See Referral Note (within 3 weeks) Disposition Disposition (needs filled in before D/C Order can be placed): Home, Self Care
--- NOTE | 2021-07-28 10:23 | US_ITS ---
STUDY: SUPERFICIAL ULTRASOUND - POSSIBLE THORACENTESIS. REASON FOR EXAM: Female, 50 years old. Left pleural effusion TECHNIQUE: A superficial ultrasound was performed with real-time and static allen-scale imaging. COMPARISON: None. FINDINGS: Imaging of the left pleural space was obtained. There is a tiny left pleural effusion. US/Chest IMPRESSION: Tiny pleural effusion. Not enough fluid for thoracentesis. Electronically Signed: Carlitos Roberts MD at 10:47 EST , Service support ,
[2021-07-28] MEDS: oxyCODONE CR 15 MG Tablet PO (10:36)
[2021-07-28] MEDS: busPIRone 5 MG Tablet 10 MG PO (10:37)
[2021-07-28] MEDS: Escitalopram Oxalate 20 MG Tablet PO (10:37)
--- NOTE | 2021-07-28 10:45 | CASEMGMT ---
TC to [facility], spoke with Laine. Pt had a $142 copay then eliquis card applied and pt does not have a fee.
--- NOTE | 2021-07-28 11:24 | CASEMGMT ---
Social Work Note SW aware of Palliative referral that was placed. RN CM to make Palliative Referral. Patience Juan SADDLE STITCHING MACHINE OPERATOR, QUALITY ASSURANCE ANALYST
--- NOTE | 2021-07-28 12:51 | CASEMGMT ---
[facility] CM Readmission Note Previous Admission: 07/19/21-07/26/21 Diagnosis: abd pain, new colon ca diagnosis DC Disposition: Home with O2 Current Admission Current diagnosis: Bilat PE and Bilat pleural effusions Pt dc'd one day prior and presented to ER with waking up early am with rib cage pain. Pt found to have bilat PE and pleural effusions. Pt taken down for thoracentesis but not enough fluid for pt to have procedure. Pt supposed to have chemo this date. Pt dc'd on eliquis and reported to outpt chemo treatment. Spoke with Simin several times regarding chemo and plan for this during inpatient stay vs after dc. DC PLAN: Home. Pt to go to outpt chemo treatment prior. Pt will receive chemo via pump and return Sunday for chemo to be dc'd. Noted Palliative Order placed yesterday. Emailed referral at this time and noted that pt had been dc'd this am.
[2021-07-28 14:43] LABS: Pathologist Comment/Body Fluid Reviewed
--- NOTE | 2021-08-08 09:24 | DS.PCM_ITS ---
Providers Date of Admission: 07/27/21 Date of Discharge: 07/28/21 Primary Care Physician: KASIA Gupta Consultations 07/27/21 16:44 Consult: Oncology/Hematology Routine Consulting Provider: Trung Schwarz Reason for Consult: colon cancer EMERGENT Consult: No MD Notified: Yes Date Notified: 07/27/21 Time Notified: 16:44 Method of Notification: Verbal Reason For Visit: BILATERAL PE AND BL PLEURAL EFFUSIONS Diagnosis Discharge Diagnosis (1) Colon cancer: Status: Acute Code(s): C18.9 - Malignant neoplasm of colon, unspecified Qualifiers: Colon location: overlapping sites Qualified Code(s): C18.8 - Malignant neoplasm of overlapping sites of colon (2) Malignant ascites: Status: Acute Code(s): R18.0 - Malignant ascites (3) Pulmonary emboli: Status: Acute Code(s): I26.99 - Other pulmonary embolism without acute cor pulmonale Qualifiers: Pulmonary embolism type: multiple subsegmental (without acute cor pulmonale) Qualified Code(s): I26.94 - Multiple subsegmental pulmonary emboli without acute cor pulmonale Plan: 1. Acute on chronic hypoxic respiratory failure secondary to pulmonary emboli and bilateral pleural effusions (secondary to metastatic colon cancer) #2 acute pulmonary embolism-multiple areas-secondary to metastatic colon cancer #3 colon cancer with metastatic spread to the abdominal area #4 anxiety/depression-chronic Medications at Discharge Home Medications buspirone 10 mg PO BID 06/13/21 escitalopram oxalate 20 mg PO DAILY 06/13/21 oxycodone 10 mg PO Q4H PRN PRN 7 Days #30 tab 07/26/21 apixaban [Eliquis] 5 mg PO BID #49 tab 07/28/21 lidocaine-prilocaine 2.5 %-2.5 % topical cream 1 applic TOPICAL ONCE PRN 30 Days #30 g 07/28/21 omeprazole 20 mg capsule,delayed release 20 mg PO DAILY #30 cap 07/28/21 ondansetron 8 mg disintegrating tablet 8 mg PO Q8H PRN #30 tab 07/28/21 prochlorperazine maleate 5 mg tablet 5 mg PO TID PRN #30 tab 08/01/21 sennosides 8.6 mg tablet 8.6 mg PO BID #60 tab 08/01/21 morphine 15 mg tablet,extended release 15 mg PO Q12H 30 Days #60 tab 08/02/21 ondansetron 8 mg PO TID PRN #21 tab 08/05/21 promethazine 25 mg PO TID PRN #21 tab 08/05/21 Hospital Course Operations None Procedures None Summary of Care Provided Minutes Spent on Discharge: 31 Hospital Course: This 50-year-old white female who has a history of metastatic colon cancer was seen in the emergency room at [facility] with a chief complaint of shortness of breath, work-up in the emergency room included a CT of the chest which showed evidence of multiple pulmonary emboli, patient required supplemental oxygen via nasal cannula. Patient was admitted to [place] [address], she was placed on full anticoagulation. On the morning of 07/28/2021, patient was seen and examined: On examination she appeared her stated age, she does not appear to be in any distress. Vital signs as documented. Skin warm and dry and without overt rashes. Neck without JVD, thyroid appears normal, trachea is midline, neck is supple. Lungs clear, normal air movement was noted. Heart exam notable for regular rhythm, normal sounds and absence of murmurs, rubs or gallops. Abdomen unremarkable and without evidence of organomegaly, masses, or abdominal aortic enlargement, bowel sounds are present in all 4 quadrants, no abdominal tenderness was noted. Extremities nonedematous, no cyanosis was noted, no clubbing was noted. Neuro: Cranial nerves II through XII are grossly intact, no focal motor deficits were noted, sensation to light touch and pinprick is intact, motor exam 5/5 throughout. Psych: Patient is alert and oriented x3, she does not appear anxious or depressed, she does not appear agitated. On 07/28/2021, patient was discharge home in stable condition. She was to [facility] w-up with her oncologist regarding chemotherapy. Weight / BMI Weight Weight: 111.725 kg Body Mass Index (BMI) 42.3 ABG / Lab / Microbiology Data Result Diagrams: 07/28/21 05:42 07/28/21 05:42 Microbiology: Microbiology 07/27/21 07:30 Nasal Secretion SARS-CoV-2 Antigen (Rapid) - Final D/C Instructions Discharge Diet: No restrictions Meaningful Use Info Meaningful Use Diagnoses (Choose all that apply): VTE VTE Anticoag overlap given w/in hospital stay or rx'd at dc?: Yes Pt receive overlap for 5 days?: No Reason overlap not ordered, prescribed, or given for 5 days: Procedure Not Indicated Discharge Plan Admission Admit Date/Time: 07/27/21 11:20 Primary Reason for Your Visit: pulmonary embolism Attending Provider: David Pickering Primary Care Provider: Alysha Amaya Consulting Providers: Trung Schwarz Instructions Additional Instructions / Restrictions: remain on oxygen 3 liters/min continuously Start on Eliquis now Do not take Ibuprofen, aspirin, or Naproxin while on Eliquis Discharge Orders/Prescriptions Prescriptions: New Eliquis 5 mg tablet 5 mg PO BID Qty: 49 RF: 0 Continued buspirone 10 mg tablet 10 mg PO BID RF: 0 escitalopram oxalate 20 mg tablet 20 mg PO DAILY RF: 0 oxycodone 5 mg Tablet 10 mg PO Q4H PRN PRN (Reason: Abdominal Pain) 7 Days Qty: 30 RF: 0 No Action prochlorperazine maleate [Compazine] 5 mg tablet 5 mg PO TID PRN (Reason: nausea and vomiting) Qty: 30 RF: 0 morphine 15 mg tablet extended release 15 mg PO Q12H 30 Days Qty: 60 RF: 0 promethazine 25 mg tablet 25 mg PO TID PRN (Reason: nausea and vomiting) Qty: 21 RF: 0 ondansetron 8 mg tablet,disintegrating 8 mg PO TID PRN (Reason: nausea and vomiting) Qty: 21 RF: 0 ondansetron 8 mg tablet,disintegrating 8 mg PO Q8H PRN (Reason: nausea and vomiting) Qty: 30 RF: 2 lidocaine-prilocaine 2.5-2.5 % cream 1 applic topical ONCE PRN (Reason: port access) 30 Days Qty: 30 RF: 2 omeprazole 20 mg capsule,delayed release(DR/EC) 20 mg PO DAILY Qty: 30 RF: 2 sennosides [Senna Laxative] 8.6 mg tablet 8.6 mg PO BID Qty: 60 RF: 2 Referrals / Follow Up: Trung Schwarz MD [NON-STAFF] - See Referral Note (today) Alysha Amaya NP-C [Primary Care Provider] - See Referral Note (within 3 weeks) Disposition Disposition (needs filled in before D/C Order can be placed): Home, Self Care Charges/Coding Visit Charges Inpatient E&M: 98916 Disch Hosp
== END 2021-07-28 10:50 | disposition home or self-care (01) | DRG 846 ==
LOC: ED 09:32 → MS3 13:44
PROVIDERS: Student in an Organized Health Care Education/Training Program; Admitting Provider Family Medicine; Emergency Provider Emergency Medicine; PCP Nurse Practitioner Adult Health; Visit Provider Internal Medicine
DX: Z51.11 Encounter for antineoplastic chemotherapy (principal); I26.94 Multiple subsegmental thrombotic pulmonary emboli without acute cor pulmonale; J96.21 Acute and chronic respiratory failure with hypoxia; C18.8 Malignant neoplasm of overlapping sites of colon; R18.0 Malignant ascites; Z68.41 Body mass index [BMI] 40.0-44.9, adult; J91.0 Malignant pleural effusion; E66.01 Morbid (severe) obesity due to excess calories; F32.A Depression, unspecified; F41.9 Anxiety disorder, unspecified; G43.909 Migraine, unspecified, not intractable, without status migrainosus; K21.9 Gastro-esophageal reflux disease without esophagitis; Z78.0 Asymptomatic menopausal state; Z86.718 Personal history of other venous thrombosis and embolism; Z79.899 Other long term (current) drug therapy; Z87.891 Personal history of nicotine dependence; Z99.81 Dependence on supplemental oxygen
CPT/HCPCS: 32555; 36415; 71045; 71046; 71275; 76604; 80048; 80053; 82945; 83615; 83690; 84157; 84484; 85025; 85610; 85730; 87426; 88108; 88305; 88313; 88341; 88342; 89050; 93005; 94760; 96367; 96368; 96372; 96376; 96411; 96413; 96415; 96416; 96417; 99284; 99406; J9206; Q9967; A4216; J0640; J2405; J2469; J3490; J9190; J9263

== ENCOUNTER 2021-08-05 15:27 | Emergency (ER) | payer OTHER, SELFPAY ==
[2021-08-05 15:29] VITALS: BP 120/83; PULSE 116; RESP 19; TEMP 36.2; O2SAT 97; BMI 39.4
[2021-08-05] MEDS: 0.9% Normal Saline 1,000 ML 999 ML IV ×2 (19:27→20:45)
[2021-08-05] MEDS: proMETHazine 25 MG/ML Syringe IM (19:32)
[2021-08-05 19:45] LABS: Absolute Lymphocyte Count 0.25 X10^3/uL (0.83-4.51); Absolute Neutrophil Count 1.7 X10^3/uL (2.0-7.7); Basophil# 0.01 X10^3/uL; Basophil% 0.5 % (0-1); Eosinophil# 0.04 X10^3/uL; Eosinophils% 1.9 % (0-5); Hematocrit 38.6 % (37-47); Hemoglobin 12.5 g/dL (12.0-15.0); Lymphocyte # 0.25 X10^3/ul (0.83-4.51); Lymphocyte % 11.8 % (19-41); Mean Corp Hgb Conc 32.4 g/dL (32-36); Mean Corpuscular Hgb 26.5 pg (27.0-32.0); Mean Corpuscular Volume 81.8 fL (81-99); Mean Platelet Vol. 10.4 fl (6.2-12.0); Monocyte# 0.12 X10^3/uL; Monocyte% 5.7 % (0-10); NRBC Flagged by Analyzer 0 % (0-5); Neutrophil # 1.69 X10^3/uL (2.7-7.7); Neutrophil % 79.6 % (47-70); POSITIVE DIFFERENTIAL YES; Platelet Count 206 K/mm3 (150-450); RBC Distribution Width CV 13.2 % (11.6-14.6); RBC Distribution Width SD 39.4 fl (35.1-43.9); Red Blood Count 4.72 M/mm3 (4.2-5.4); White Blood Count 2.1 K/mm3 (4.4-11.0)
[2021-08-05 20:00] LABS: Differential Indicated SCAN CRITERIA MET
[2021-08-05 20:05] LABS: AST(SGOT) 27 U/L (15-37); Alanine Aminotransfer ALT/SGPT 21 U/L (13-56); Albumin, Serum 2.2 g/dL (3.2-5.0); Alkaline Phosphatase 117 U/L (45-117); Anion Gap 12 (5-15); BUN 20 mg/dL (7-18); BUN/Creat Ratio 23.1 RATIO (10-20); Bilirubin, Direct 0.25 mg/dL (0.00-0.30); Calcium,Total 8.6 mg/dL (8.5-10.1); Chloride 97 mmol/L (98-107); Creatinine, Serum 0.86 mg/dL (0.55-1.02); EST Glomerular Filtration Rate 74 mL/min (>60); Est Glom Filt Rate - Afr Amer 89 mL/min (>60); Estimated Creatinine Clearance 67.58 ml/min; Globulin 4.9 g/dL (2.2-4.2); Glucose 103 mg/dL (74-106); Lipase 115 U/L (73-393); Magnesium 2.1 mg/dL (1.6-2.6); Potassium 3.8 mmol/L (3.5-5.1); Protein, Total 7.1 g/dL (6.4-8.2); Sodium Level 135 mmol/L (136-145)
[2021-08-05 20:15] VITALS: BP 143/88; PULSE 99; RESP 18; O2SAT 100
[2021-08-05 20:42] LABS: Platelet Estimate ADEQUATE (ADEQ); Red Cell Morphology NORM C+C NORMAL (NORM C&C)
[2021-08-05 22:28] VITALS: BP 132/80; PULSE 100; RESP 17; O2SAT 100
--- NOTE | 2021-08-05 22:48 | EX.ED.DYSGE1 ---
HPI History of Present Illness Chief Complaint: Nausea/Vomiting Narrative Narrative: Patient is a 50-year-old female who states that she has colon cancer. She reports she has been dealing with nausea and vomiting for multiple months but recently received chemotherapy. She states after chemotherapy she has noticed increased bouts of nausea and vomiting. She reports that this is not being controlled with her home medication. She is concerned about dehydration and secondary to this comes in for evaluation. [facility] Medical History Abnormal CT scan Anxiety Anxiety and depression At high risk for deep venous thrombosis Back pain Chronic cough Colon cancer Depression DVT (deep venous thrombosis) Encounter for adjustment and management of vascular access device Former tobacco use Gastric reflux GERD (gastroesophageal reflux disease) Heart burn History of steroid therapy Left leg pain Malignant ascites Migraine headache Morbid obesity Post-menopausal Shortness of breath on exertion Wears dentures Wears glasses Home Medications buspirone 10 mg PO BID 06/13/21 [History Last Taken 06/11/21] escitalopram oxalate 20 mg PO DAILY 06/13/21 [History Last Taken 06/11/21] oxycodone 10 mg PO Q4H PRN PRN 7 Days #30 tab 07/26/21 [Rx Last Taken Unknown] apixaban [Eliquis] 5 mg PO BID #49 tab 07/28/21 [Rx Last Taken Unknown] lidocaine-prilocaine 2.5 %-2.5 % topical cream 1 applic TOPICAL ONCE PRN 30 Days #30 g 07/28/21 [Rx Last Taken Unknown] omeprazole 20 mg capsule,delayed release 20 mg PO DAILY #30 cap 07/28/21 [Rx Last Taken Unknown] ondansetron 8 mg disintegrating tablet 8 mg PO Q8H PRN #30 tab 07/28/21 [Rx Last Taken Unknown] prochlorperazine maleate 5 mg tablet 5 mg PO TID PRN #30 tab 08/01/21 [Rx Last Taken Unknown] sennosides 8.6 mg tablet 8.6 mg PO BID #60 tab 08/01/21 [Rx Last Taken Unknown] morphine 15 mg tablet,extended release 15 mg PO Q12H 30 Days #60 tab 08/02/21 [Rx Last Taken Unknown] ondansetron 8 mg PO TID PRN #21 tab 08/05/21 [Rx Last Taken Unknown] promethazine 25 mg PO TID PRN #21 tab 08/05/21 [Rx Last Taken Unknown] Allergy/AdvReac Type Severity Reaction Status Date / Time No Known Allergies Allergy Verified 08/05/21 15:31 Family History Father Diabetes Mother Hypertension Brother Hypertension Surgical History History of cholecystectomy (~06/2021) S/P section S/P rotator cuff repair Social History household members: family Smoking Status: Former smoker how long ago did patient quit smoking: Quit 2 years prior, smoked 1/2 ppd since she was a teenager until quitting. alcohol intake: never substance use type: does not use ROS ROS ED Constitutional Constitutional ED: Denies chills or fever(s) ENT ENT ED: Denies sore throat Cardiovascular Cardiovascular: Denies chest pain Respiratory/Chest Respiratory/Chest: Denies cough or dyspnea Gastrointestinal Gastrointestinal: Reports nausea and vomiting; Denies abdominal pain, constipation or diarrhea Genitourinary Genitourinary ED: Denies dysuria Musculoskeletal Musculoskeletal: Denies myalgias Integumentary Denies rash Neurologic Neurologic: Denies headache(s) EXAM Physical Exam Const Vital Signs: 08/05/21 15:29 08/05/21 20:15 08/05/21 22:28 Temperature 97.2 F L Temperature Source Temporal Pulse Rate 116 H 99 100 Respiratory Rate 19 H 18 17 Blood Pressure 120/83 H 143/88 H 132/80 H Blood Pressure Mean 95 106 97 Pulse Ox 97 100 100 Oxygen Delivery Method Room Air Room Air Room Air Positive well nourished, well developed and obese General Appearance ED: well developed Nutritional Appearance: obese HEENT Reports dry mucous membranes Mouth ED: Yes dry mucous membranes Mouth: dry mucous membranes Eyes PERRL and EOMs intact bilaterally Neck supple Resp normal respiratory effort and clear to auscultation bilaterally Cardio regular rhythm Rate: tachycardic and other Other Details: Radial pulses are +2-4 bilaterally are equal and symmetric GI non-tender and non-distended GI Narrative: Abdomen is soft and nondistended with hyperactive bowel sounds. No voluntary guarding or rigidity no pulsatile mass Palpation: soft Extremity normal to inspection Neuro oriented x3 and CN's II-XII intact bilaterally Sensorium / Orientation: alert Motor Exam: strength 5/5 throughout Psych mental status grossly normal Skin no rashes or lesions noted Skin Narrative: Skin turgor is increased MDM MDM MDM Narrative Medical decision making narrative: Patient presented to the ER tachycardic and had physical exam findings concerning for dehydration. With concern her she could have acute kidney injury from dehydration or electrolyte disturbance I did elect to perform basic laboratory studies. White count is decreased consistent with the recent chemotherapy but otherwise are no clinically significant changes. I do not feel there is a need for a CT scan as patient had a soft nonsurgical abdomen. Patient was given 2 L of fluid and her heart rate improved and she was also given Phenergan and had no further bouts of vomiting. Therefore at this time as she is afebrile with improvement of her symptoms and has no clinically significant lab changes she can be discharged home with outpatient follow. Lab Data Attestation: I reviewed the patient's lab results. Labs: Laboratory Results - last 24 hr 08/05/21 08/05/21 19:27 19:27 WBC 2.1 L RBC 4.72 Hgb 12.5 Hct 38.6 MCV 81.8 MCH 26.5 L MCHC 32.4 RDW Std Deviation 39.4 RDW Coeff of Mohsen 13.2 Plt Count 206 MPV 10.4 Immature Gran % (Auto) 0.500 Neut % (Auto) 79.6 H Lymph % (Auto) 11.8 L Levy % (Auto) 5.7 Eos % (Auto) 1.9 Baso % (Auto) 0.5 Absolute Neuts (auto) 1.7 L Absolute Lymphs (auto) 0.25 L Nucleated RBC % 0 Differential Comment Diff Path Review May foll Platelet Estimate ADEQUATE RBC Morphology NORM C+C Sodium 135 L Potassium 3.8 Chloride 97 L Carbon Dioxide 26.0 Anion Gap 12 BUN 20 H Creatinine 0.86 Estim Creat Clear Calc 67.58 Est GFR (MDRD) Af Amer 89 Est GFR (MDRD) Non-Af 74 BUN/Creatinine Ratio 23.1 H Glucose 103 Calcium 8.6 Magnesium 2.1 Total Bilirubin 0.70 Direct Bilirubin 0.25 AST 27 ALT 21 Alkaline Phosphatase 117 Total Protein 7.1 Albumin 2.2 L Globulin 4.9 H Lipase 115 Discharge Plan Triage Chief Complaint: Nausea/Vomiting ED Provider: Lit Mcclure Dx/Rx/DC Orders Clinical Impression: Nausea and vomiting, Dehydration Instructions: Dehydration, ED Vomiting (Adult) Prescriptions: New promethazine 25 mg tablet 25 mg PO TID PRN (Reason: nausea and vomiting) Qty: 21 RF: 0 ondansetron 8 mg tablet,disintegrating 8 mg PO TID PRN (Reason: nausea and vomiting) Qty: 21 RF: 0 No Action prochlorperazine maleate [Compazine] 5 mg tablet 5 mg PO TID PRN (Reason: nausea and vomiting) Qty: 30 RF: 0 morphine 15 mg tablet extended release 15 mg PO Q12H 30 Days Qty: 60 RF: 0 buspirone 10 mg tablet 10 mg PO BID RF: 0 escitalopram oxalate 20 mg tablet 20 mg PO DAILY RF: 0 oxycodone 5 mg Tablet 10 mg PO Q4H PRN PRN (Reason: Abdominal Pain) 7 Days Qty: 30 RF: 0 Eliquis 5 mg tablet 5 mg PO BID Qty: 49 RF: 0 ondansetron 8 mg tablet,disintegrating 8 mg PO Q8H PRN (Reason: nausea and vomiting) Qty: 30 RF: 2 lidocaine-prilocaine 2.5-2.5 % cream 1 applic topical ONCE PRN (Reason: port access) 30 Days Qty: 30 RF: 2 omeprazole 20 mg capsule,delayed release(DR/EC) 20 mg PO DAILY Qty: 30 RF: 2 sennosides [Senna Laxative] 8.6 mg tablet 8.6 mg PO BID Qty: 60 RF: 2 Primary Care Provider: Alysha Amaya Referrals: Alysha Amaya, ECHO TECHNOLOGIST-C [Primary Care Provider] - Disposition Disposition: Home, Self Care
[2021-08-05] MEDS: 0.9% Saline Lock 10 ML Syringe IV (23:04)
[2021-08-05] MEDS: proMETHazine 25 MG Tablet 12.5 MG PO (23:04)
[2021-08-05 23:13] VITALS: BP 136/82; PULSE 102; RESP 12; O2SAT 97
[2021-08-08 15:07] LABS: Pathologist Review Reviewed
== END 2021-08-05 23:13 | disposition home or self-care (01) ==
PROVIDERS: Emergency Provider Emergency Medicine; PCP Nurse Practitioner Adult Health
DX: R11.2 Nausea with vomiting, unspecified (principal); E86.0 Dehydration; C18.9 Malignant neoplasm of colon, unspecified; F41.9 Anxiety disorder, unspecified; F32.A Depression, unspecified; K21.9 Gastro-esophageal reflux disease without esophagitis; E66.01 Morbid (severe) obesity due to excess calories; Z68.39 Body mass index [BMI] 39.0-39.9, adult; G43.909 Migraine, unspecified, not intractable, without status migrainosus; Z86.718 Personal history of other venous thrombosis and embolism; Z79.01 Long term (current) use of anticoagulants; Z79.899 Other long term (current) drug therapy; Z87.891 Personal history of nicotine dependence
CPT/HCPCS: 36591; 80048; 80076; 83690; 83735; 85025; 99283; J7030; A4216

== ENCOUNTER 2021-09-19 07:38 | Emergency (ER) | payer OTHER, SELFPAY ==
[2021-09-19 07:39] VITALS: BP 153/92; PULSE 102; RESP 20; TEMP 36.6; O2SAT 96; BMI 37.8
--- NOTE | 2021-09-19 08:02 | CT_ITS ---
STUDY: CTA CHEST REASON FOR EXAM: Female, 51 years old. Cough. Pleuritic chest pain. History of colon cancer. RADIATION DOSAGE (If Supplied By Facility): CTDIvol = ( 10.97 ) mGy, DLP = ( 437.00 ) mGycm TECHNIQUE: The examination was performed with the intravenous administration of IV 100mL Isovue-370. Post-processing of the angiographic images was performed, with multiplanar reformation and 3D reconstruction. Individualized dose optimization techniques were used for this CT. COMPARISON: Comparison is made with prior study dated 07/27/2021. FINDINGS: A right-sided portacatheter is seen with the tip in the superior vena cava. Normal enhancement of the main pulmonary artery and right and left pulmonary arteries. Normal enhancement of the bilateral peripheral pulmonary arteries. There is no demonstrated pulmonary embolism. Normal thoracic aorta and visualized great vessels. There is no demonstrated aortic dissection. Normal heart and pericardium. Normal mediastinum. Normal hilar regions. Normal visualized trachea and bronchi. The lungs are well expanded. There are small bilateral pleural effusions slightly greater on the left side with bibasilar atelectasis and/or infiltrates. Patchy atelectasis and/or infiltrates also seen in the posterior aspect of the lingular segment of the left upper lobe. Normal chest wall structures. There are degenerative changes of thoracic spine. There is a 2 cm hypodense nodule in the left adrenal gland suggestive of an adrenal adenoma. CT/CTA Chest W/WO Contrast IMPRESSION: No evidence of pulmonary embolism. Bilateral pleural effusions slightly worse on the left side with bibasilar atelectasis and/or infiltrates. Mild degree of atelectasis and/or infiltrates in the lingular segment of the left upper lobe. 2 cm hypodense nodule in the left adrenal gland suggestive of small adenoma. Electronically Signed: Carlitos Roberts MD at 9:46 EST , Service support ,
--- NOTE | 2021-09-19 08:03 | EDS_ITS ---
HPI History of Present Illness Chief Complaint: Shortness of Breath Informant: patient Onset/Context/Timing Onset: Days Context: Gradual Onset Current Severity: Moderate Maximum Severity: Moderate Narrative Narrative: Patient presents secondary to lower rib pain. Patient states that 2 days ago she developed a sharp pain when she would try to take a deep breath. She feels that she cannot get a deep breath and has pain across her lower ribs posteriorly. She does have a history of DVT and is on Eliquis. She is also undergoing treatment for colon cancer. She denies fever or chills. She feels that she has a lot of phlegm in her chest but cannot cough it up. [facility] Medical History Abnormal CT scan Anxiety Anxiety and depression At high risk for deep venous thrombosis Back pain Chronic cough Colon cancer Depression DVT (deep venous thrombosis) Elevated serum creatinine Encounter for adjustment and management of vascular access device Encounter for chemotherapy management Former tobacco use Gastric reflux GERD (gastroesophageal reflux disease) Heart burn History of steroid therapy Hypokalemia Hypomagnesemia Left leg pain Malignant ascites Migraine headache Morbid obesity Post-menopausal Shortness of breath on exertion Wears dentures Wears glasses Weight loss Home Medications buspirone 10 mg PO BID 06/13/21 [History Last Taken 06/11/21] escitalopram oxalate 20 mg PO DAILY 06/13/21 [History Last Taken 06/11/21] apixaban [Eliquis] 5 mg PO BID #49 tab 07/28/21 [Rx Last Taken Unknown] lidocaine-prilocaine 2.5 %-2.5 % topical cream 1 applic TOPICAL ONCE PRN 30 Days #30 g 07/28/21 [Rx Last Taken Unknown] omeprazole 20 mg capsule,delayed release 20 mg PO DAILY #30 cap 07/28/21 [Rx Last Taken Unknown] ondansetron 8 mg disintegrating tablet 8 mg PO Q8H PRN #30 tab 07/28/21 [Rx Last Taken Unknown] prochlorperazine maleate 5 mg tablet 5 mg PO TID PRN #30 tab 08/01/21 [Rx Last Taken Unknown] sennosides 8.6 mg tablet 8.6 mg PO BID #60 tab 08/01/21 [Rx Last Taken Unknown] promethazine 25 mg PO TID PRN #21 tab 08/05/21 [Rx Last Taken Unknown] oxycodone 5 mg capsule 5 mg PO Q4H PRN 08/24/21 [History Last Taken Unknown] guaifenesin [Mucinex] 1,200 mg PO BID PRN #10 tab 09/19/21 [Rx Last Taken Unknown] prednisone 40 mg PO DAILY #10 tab 09/19/21 [Rx Last Taken Unknown] Allergy/AdvReac Type Severity Reaction Status Date / Time No Known Allergies Allergy Verified 09/19/21 07:41 Family History Father Diabetes Mother Hypertension Brother Hypertension Surgical History History of cholecystectomy (~06/2021) S/P section S/P rotator cuff repair Social History household members: family Smoking Status: Former smoker how long ago did patient quit smoking: Quit 2 years prior, smoked 1/2 ppd since she was a teenager until quitting. alcohol intake: never substance use type: does not use ROS ROS ED Constitutional Constitutional ED: Denies chills or fever(s) Eyes Eyes: Denies change in vision ENT ENT ED: Denies sore throat Cardiovascular Cardiovascular: Reports chest pain Respiratory/Chest Respiratory/Chest: Reports cough and dyspnea Gastrointestinal Gastrointestinal: Denies abdominal pain, diarrhea, nausea or vomiting Genitourinary Genitourinary ED: Denies dysuria Musculoskeletal Musculoskeletal: Reports back pain Integumentary Denies rash Neurologic Neurologic: Denies headache(s) or weakness Allergic/Immunologic Allergic/Immunologic ED: Denies urticaria EXAM Physical Exam Const Vital Signs: 09/19/21 07:39 09/19/21 09:49 Temperature 98 F Temperature Source Temporal Pulse Rate 102 H 88 Respiratory Rate 20 H 18 Blood Pressure 153/92 H 146/97 H Blood Pressure Mean 112 113 Pulse Ox 96 94 Oxygen Delivery Method Room Air Room Air Positive well nourished and well developed General Appearance ED: well developed HEENT Reports moist mucous membranes Eyes PERRL and EOMs intact bilaterally Neck supple Chest Wall inspection of chest normal and palpation of chest normal Resp normal respiratory effort and clear to auscultation bilaterally Cardio regular rate and regular rhythm GI non-tender Palpation: soft Extremity normal to inspection Neuro oriented x3 Sensorium / Orientation: alert Psych mental status grossly normal Skin no rashes or lesions noted MDM MDM MDM Narrative Medical decision making narrative: Lab work, COVID test, CTA chest obtained. Prakash lieberman given small dose of morphine to help with pain. Lab Data Attestation: I reviewed the patient's lab results. Labs: Laboratory Results - last 24 hr 09/19/21 09/19/21 08:25 08:25 WBC 3.8 L RBC 3.27 L Hgb 9.1 L Hct 27.7 L MCV 84.7 MCH 27.8 MCHC 32.9 RDW Std Deviation 57.0 H RDW Coeff of Mohsen 18.6 H Plt Count 187 MPV 9.2 Immature Gran % (Auto) 0.800 Neut % (Auto) 68.9 Lymph % (Auto) 15.2 L [place] % (Auto) 9.3 Eos % (Auto) 5.3 H Baso % (Auto) 0.5 Absolute Neuts (auto) 2.6 Absolute Lymphs (auto) 0.57 L Nucleated RBC % 0 Sodium 138 Potassium 3.8 Chloride 102 Carbon Dioxide 28.0 Anion Gap 8 BUN 9 Creatinine 0.64 Estim Creat Clear Calc 89.80 Est GFR (MDRD) Af Amer 126 Est GFR (MDRD) Non-Af 104 BUN/Creatinine Ratio 14.1 Glucose 92 Calcium 8.6 Troponin I High Sens 6 Rapid COVID: Negative Radiography Diagnostic Testing: Clinical Impression(s) from Imaging Studies Chest CTA 09/19/21 08:02 IMPRESSION: No evidence of pulmonary embolism. Bilateral pleural effusions slightly worse on the left side with bibasilar atelectasis and/or infiltrates. Mild degree of atelectasis and/or infiltrates in the lingular segment of the left upper lobe. 2 cm hypodense nodule in the left adrenal gland suggestive of small adenoma. Electronically Signed: Carlitos Roberts MD at 9:46 EST , Service support , Treatment and Re-Evaluation Comments:: Lab work is largely unremarkable. White count is low at 3.8 and hemoglobin 9.1. Chemistry studies unremarkable. Troponin normal at 6. CTA reveals no evidence of PE. She does have bilateral pleural effusions which have been noted previously. She does have some atelectasis noted. I do not believe she has an acute pneumonia. Patient will be treated with Mucinex as well as prednisone to help with pleurisy. She is currently on omeprazole and we discussed being sure that she eats with her steroid to help protect her stomach. Discharge Plan Triage Chief Complaint: Shortness of Breath ED Provider: Jaycee Mathis Dx/Rx/DC Orders Clinical Impression: Pleurisy, Viral URI Instructions: ED Pleurisy, ED URI, Viral, No Abx (Adult) Prescriptions: New prednisone 20 mg tablet 40 mg PO DAILY Qty: 10 RF: 0 Mucinex 1,200 mg tablet extended release 12hr 1,200 mg PO BID PRN (Reason: congestion) Qty: 10 RF: 0 No Action prochlorperazine maleate [Compazine] 5 mg tablet 5 mg PO TID PRN (Reason: nausea and vomiting) Qty: 30 RF: 0 oxycodone 5 mg capsule 5 mg PO Q4H PRNRF: 0 buspirone 10 mg tablet 10 mg PO BID RF: 0 escitalopram oxalate 20 mg tablet 20 mg PO DAILY RF: 0 Eliquis 5 mg tablet 5 mg PO BID Qty: 49 RF: 0 promethazine 25 mg tablet 25 mg PO TID PRN (Reason: nausea and vomiting) Qty: 21 RF: 0 ondansetron 8 mg tablet,disintegrating 8 mg PO Q8H PRN (Reason: nausea and vomiting) Qty: 30 RF: 2 lidocaine-prilocaine 2.5-2.5 % cream 1 applic topical ONCE PRN (Reason: port access) 30 Days Qty: 30 RF: 2 omeprazole 20 mg capsule,delayed release(DR/EC) 20 mg PO DAILY Qty: 30 RF: 2 sennosides [Senna Laxative] 8.6 mg tablet 8.6 mg PO BID Qty: 60 RF: 2 Primary Care Provider: Alysha Amaya Referrals: Alysha Amaya, SS[employer] DEVELOPER-C [Primary Care Provider] - 1 Week Disposition Disposition: Home, Self Care
[2021-09-19] MEDS: Morphine 2 MG/ML Syringe IV (08:30)
[2021-09-19 08:43] LABS: Absolute Lymphocyte Count 0.57 X10^3/uL (0.83-4.51); Absolute Neutrophil Count 2.6 X10^3/uL (2.0-7.7); Basophil# 0.02 X10^3/uL; Basophil% 0.5 % (0-1); Eosinophils% 5.3 % (0-5); Hematocrit 27.7 % (37-47); Hemoglobin 9.1 g/dL (12.0-15.0); Lymphocyte # 0.57 X10^3/ul (0.83-4.51); Lymphocyte % 15.2 % (19-41); Mean Corp Hgb Conc 32.9 g/dL (32-36); Mean Corpuscular Hgb 27.8 pg (27.0-32.0); Mean Corpuscular Volume 84.7 fL (81-99); Mean Platelet Vol. 9.2 fl (6.2-12.0); Monocyte# 0.35 X10^3/uL; Monocyte% 9.3 % (0-10); NRBC Flagged by Analyzer 0 % (0-5); Neutrophil # 2.58 X10^3/uL (2.7-7.7); Neutrophil % 68.9 % (47-70); POSITIVE DIFFERENTIAL YES; Platelet Count 187 K/mm3 (150-450); RBC Distribution Width CV 18.6 % (11.6-14.6); Red Blood Count 3.27 M/mm3 (4.2-5.4); White Blood Count 3.8 K/mm3 (4.4-11.0)
[2021-09-19 08:46] LABS: Differential Indicated SCAN CRITERIA MET
[2021-09-19 08:59] LABS: Anion Gap 8 (5-15); BUN 9 mg/dL (7-18); BUN/Creat Ratio 14.1 RATIO (10-20); Calcium,Total 8.6 mg/dL (8.5-10.1); Chloride 102 mmol/L (98-107); Creatinine, Serum 0.64 mg/dL (0.55-1.02); EST Glomerular Filtration Rate 104 mL/min (>60); Est Glom Filt Rate - Afr Amer 126 mL/min (>60); Glucose 92 mg/dL (74-106); Potassium 3.8 mmol/L (3.5-5.1); Sodium Level 138 mmol/L (136-145); Troponin-I HS 6 pg/mL (3.0-54.0)
[2021-09-19 09:49] VITALS: BP 146/97; PULSE 88; RESP 18; O2SAT 94
[2021-09-21 09:46] LABS: Pathologist Review Reviewed
== END 2021-09-19 10:51 | disposition home or self-care (01) ==
PROVIDERS: Emergency Provider Emergency Medicine; PCP Nurse Practitioner Adult Health; Visit Provider Emergency Medicine
DX: J06.9 Acute upper respiratory infection, unspecified (principal); C18.9 Malignant neoplasm of colon, unspecified; E66.01 Morbid (severe) obesity due to excess calories; R09.1 Pleurisy; Z20.822 Contact with and (suspected) exposure to COVID-19; Z87.891 Personal history of nicotine dependence; Z86.718 Personal history of other venous thrombosis and embolism; Z79.01 Long term (current) use of anticoagulants; Z79.899 Other long term (current) drug therapy; F41.9 Anxiety disorder, unspecified; F32.A Depression, unspecified; K21.9 Gastro-esophageal reflux disease without esophagitis; E83.51 Hypocalcemia; Z78.0 Asymptomatic menopausal state; J90 Pleural effusion, not elsewhere classified; J98.11 Atelectasis
CPT/HCPCS: 71275; 80048; 84484; 85025; 87426; 96374; 99283; Q9967; A4216

== ENCOUNTER 2021-09-22 08:10 | Outpatient (CLI) | payer OTHER, SELFPAY ==
--- NOTE | 2021-09-22 08:13 | CT_ITS ---
STUDY: CT CHEST, ABDOMEN T PELVIS WITH CONTRAST REASON FOR EXAM: Female, 51 years old. ASSESSING TREATMENT RESPONSE-COLON CA RADIATION DOSAGE (If Supplied By Facility): CTDIvol = ( 19.69 ) mGy, DLP = ( 2078.20 ) mGycm TECHNIQUE: Transaxial imaging was performed following intravenous administration of Oral and amp; IV Readi-CAT and amp; 100mL Isovue-370. Individualized dose optimization techniques were used for this CT. COMPARISON: Comparison is made with prior examination dated 09/19/2021 and 07/23/2021. FINDINGS: CHEST A right-sided lacey catheter seen with the tip in the superior vena cava. Small left pleural effusion with left basilar atelectasis/infiltrate. Focal wedge-shaped infiltrate in the peripheral aspect of the lingular segment of the left upper lobe. There is no demonstrated pleural abnormality. There are calcifications of the coronary arteries. Normal mediastinum. Normal hilar regions. Normal unenhanced pulmonary arteries. Normal aorta arch and descending thoracic aorta. There are multi-level degenerative changes of the thoracic spine. ABDOMEN There is decreased attenuation of the liver consistent with steatosis. The patient is status post cholecystectomy. Normal spleen. Normal pancreas. There is a 1.6 cm nodule in the crux of the left adrenal gland. This is unchanged. Normal right kidney. Normal left kidney. Normal visualized stomach. Normal small intestine. Normal colon. The appendix is visualized and appears normal. Normal abdominal aorta. Normal inferior vena cava. Normal retroperitoneum. Normal abdominal wall. There are diffuse degenerative changes of the visualized lumbar spine. PELVIS Normal urinary bladder. Minimal amount of free fluid in the right hemipelvis. Bilateral tubal ligation clips are seen. Normal visualized small intestine. Normal visualized colon. There is no pelvic fluid. There is no pelvic lymphadenopathy or mass lesion. Normal visualized pelvic arteries. CT/CT Chest, Abd, Pel w/Contrast IMPRESSION: Small amount of free fluid is seen in the right hemipelvis. Electronically Signed: Carlitos Roberts MD at 9:26 EST , Service support ,
[2021-09-22] MEDS: 0.9% Saline Lock 10 ML Syringe IV (08:45)
== END 2021-09-22 23:59 | disposition short-term general hospital (02) ==
LOC: CT 08:13
PROVIDERS: PCP Nurse Practitioner Adult Health; Referring Provider Internal Medicine Medical Oncology; Visit Provider Internal Medicine Medical Oncology
DX: C18.2 Malignant neoplasm of ascending colon (principal); R18.0 Malignant ascites; J91.0 Malignant pleural effusion
CPT/HCPCS: 71260; 74177; Q9967; A4216

== ENCOUNTER 2021-09-25 08:21 | Emergency (ER) | payer OTHER, SELFPAY ==
[2021-09-25 08:22] VITALS: BP 152/92; PULSE 101; RESP 18; TEMP 36.5; O2SAT 97; BMI 36.8
--- NOTE | 2021-09-25 08:37 | EKG12_ITS ---
Test Reason : CP Blood Pressure : / mmHG Vent. Rate : 082 BPM Atrial Rate : 082 BPM P-R Int : 146 ms QRS Dur : 086 ms QT Int : 372 ms P-R-T Axes : 030 015 022 degrees QTc Int : 434 ms Normal sinus rhythm Normal ECG Confirmed by IAN AHUJA MD ([id number]), book or script editor JONNY LAN ([id number]) on 09/26/2021 1:02:03 PM Referred By: CONY Confirmed By:IAN AHUJA MD
--- NOTE | 2021-09-25 08:39 | EDS_ITS ---
HPI History of Present Illness Chief Complaint: Chest Other Detail of Chief Complaint: Left-sided rib pain Informant: patient Onset/Context/Timing Onset: Days (8 days) Context: Gradual Onset Timing: Waxes and wanes Current Severity: Moderate Maximum Severity: Moderate Narrative Narrative: Patient presents secondary to continued left-sided rib pain. She was seen last Sunday for posterior rib pain worse on the left than right. Evaluation at that time revealed bilateral pleural effusions which had been seen on previous studies. CTA of the chest was negative for PE. She is on Eliquis secondary to history of DVT/PE. Patient was treated with Mucinex and steroids for pleurisy and URI. Patient states her symptoms did improve. She finished her medications on Sunday and symptoms worsened again yesterday. Continues to have cough. Patient did have CT scan of the chest, abdomen, and pelvis performed on as part of her cancer monitoring. At that time they documented small pleural effusions with a wedge shaped infiltrate in the lingula. [facility] Medical History Abnormal CT scan Anxiety Anxiety and depression At high risk for deep venous thrombosis Back pain Chronic cough Colon cancer Depression DVT (deep venous thrombosis) Elevated serum creatinine Encounter for adjustment and management of vascular access device Encounter for chemotherapy management Former tobacco use Gastric reflux GERD (gastroesophageal reflux disease) Heart burn History of steroid therapy Hypokalemia Hypomagnesemia Left leg pain Malignant ascites Migraine headache Morbid obesity Post-menopausal Shortness of breath on exertion Wears dentures Wears glasses Weight loss Home Medications buspirone 10 mg PO BID 06/13/21 [History Last Taken 06/11/21] escitalopram oxalate 20 mg PO DAILY 06/13/21 [History Last Taken 06/11/21] apixaban [Eliquis] 5 mg PO BID #49 tab 07/28/21 [Rx Last Taken Unknown] lidocaine-prilocaine 2.5 %-2.5 % topical cream 1 applic TOPICAL ONCE PRN 30 Days #30 g 07/28/21 [Rx Last Taken Unknown] omeprazole 20 mg capsule,delayed release 20 mg PO DAILY #30 cap 07/28/21 [Rx Last Taken Unknown] ondansetron 8 mg disintegrating tablet 8 mg PO Q8H PRN #30 tab 07/28/21 [Rx Last Taken Unknown] prochlorperazine maleate 5 mg tablet 5 mg PO TID PRN #30 tab 08/01/21 [Rx Last Taken Unknown] sennosides 8.6 mg tablet 8.6 mg PO BID #60 tab 08/01/21 [Rx Last Taken Unknown] promethazine 25 mg PO TID PRN #21 tab 08/05/21 [Rx Last Taken Unknown] oxycodone 5 mg capsule 5 mg PO Q4H PRN 08/24/21 [History Last Taken Unknown] guaifenesin [Mucinex] 1,200 mg PO BID PRN #10 tab 09/19/21 [Rx Last Taken Unknown] prednisone 40 mg PO DAILY #10 tab 09/19/21 [Rx Last Taken Unknown] levofloxacin 750 mg PO DAILY #4 tab 09/25/21 [Rx Last Taken Unknown] Allergy/AdvReac Type Severity Reaction Status Date / Time No Known Allergies Allergy Verified 09/25/21 08:22 Family History Father Diabetes Mother Hypertension Brother Hypertension Surgical History History of cholecystectomy (~06/2021) S/P section S/P rotator cuff repair Social History household members: family Smoking Status: Former smoker how long ago did patient quit smoking: Quit 2 years prior, smoked 1/2 ppd since she was a teenager until quitting. alcohol intake: never substance use type: does not use ROS ROS ED Constitutional Constitutional ED: Denies chills or fever(s) Eyes Eyes: Denies change in vision ENT ENT ED: Denies sore throat Cardiovascular Cardiovascular: Reports chest pain Respiratory/Chest Respiratory/Chest: Reports cough; Denies dyspnea Gastrointestinal Gastrointestinal: Denies abdominal pain, diarrhea, nausea or vomiting Genitourinary Genitourinary ED: Denies dysuria Musculoskeletal Musculoskeletal: Reports back pain Integumentary Denies rash Neurologic Neurologic: Denies headache(s) or weakness Psychiatric Psychiatric: Denies anxiety or depression Endocrine Endocrinology: Denies polydipsia or polyuria Allergic/Immunologic Allergic/Immunologic ED: Denies urticaria EXAM Physical Exam Const Vital Signs: 09/25/21 08:22 09/25/21 09:13 09/25/21 09:14 Temperature 97.7 F L Temperature Source Oral Pulse Rate 101 H 90 Respiratory Rate 18 17 Respiratory Effort Normal Non-Labored Blood Pressure 152/92 H 145/85 H Blood Pressure Mean 112 105 Pulse Ox 97 96 Oxygen Delivery Method Room Air Room Air 09/25/21 10:00 Temperature Temperature Source Pulse Rate 84 Respiratory Rate 18 Respiratory Effort Blood Pressure 148/89 H Blood Pressure Mean 108 Pulse Ox 95 Oxygen Delivery Method Positive well nourished and well developed General Appearance ED: well developed HEENT Reports moist mucous membranes Eyes PERRL and EOMs intact bilaterally Neck supple Chest Wall inspection of chest normal and palpation of chest normal Resp normal respiratory effort and clear to auscultation bilaterally Cardio regular rate and regular rhythm GI non-tender Palpation: soft Extremity normal to inspection Neuro oriented x3 Sensorium / Orientation: alert Psych mental status grossly normal Skin no rashes or lesions noted MDM MDM MDM Narrative Medical decision making narrative: EKG, chest x-ray, lab work obtained. I did review her outpatient CT scan from the . Lab Data Attestation: I reviewed the patient's lab results. Labs: Laboratory Results - last 24 hr 09/25/21 09/25/21 09:05 09:05 WBC 5.4 RBC 3.44 L Hgb 9.6 L Hct 30.0 L MCV 87.2 MCH 27.9 MCHC 32.0 RDW Std Deviation 64.2 H RDW Coeff of Mohsen 21.2 H Plt Count 279 MPV 8.8 Immature Gran % (Auto) 0.900 Neut % (Auto) 71.9 H Lymph % (Auto) 16.5 L [place] % (Auto) 8.5 Eos % (Auto) 1.8 Baso % (Auto) 0.4 Absolute Neuts (auto) 3.9 Absolute Lymphs (auto) 0.89 Nucleated RBC % 0 Differential Comment SCANNED Anisocytosis 2+ Microcytosis 1+ Macrocytosis 1+ Sodium 140 Potassium 3.3 L Chloride 103 Carbon Dioxide 26.0 Anion Gap 11 BUN 16 Creatinine 0.72 Estim Creat Clear Calc 79.82 Est GFR (MDRD) Af Amer 110 Est GFR (MDRD) Non-Af 91 BUN/Creatinine Ratio 22.3 H Glucose 92 Calcium 8.2 L Total Bilirubin 0.20 Direct Bilirubin 0.09 AST 17 ALT 23 Alkaline Phosphatase 73 Troponin I High Sens 6 Total Protein 6.1 L Albumin 2.4 L Globulin 3.7 Lipase 191 Radiography Chest X-Ray - ED: 1 View, Read by ED Physician and Chronic Changes Diagnostic Testing: Clinical Impression(s) from Imaging Studies Chest X-Ray 09/25/21 09:30 IMPRESSION: No significant interval change in mild left basilar opacity. at 0950 Reported and signed by: Kaitlin Zafar MD Electronically Signed: Kaitlin Zafar MD at 9:48 EST Tel , Service support , EKG Initial EKG: Attestation: I personally reviewed and interpreted this EKG as follows: Interpretation: Sinus Rhythm (Sinus at 82 with no acute ischemia) Treatment and Re-Evaluation Comments:: Lab work is unremarkable with normal white count. Potassium slightly low at 3.3. LFTs and lipase normal. Troponin normal at 6. Chest x-ray is not significantly changed when compared to prior studies. CT scan from the does reveal now a focal wedge-shaped infiltrate in the lingula. In light of this patient will be treated with Levaquin. I did speak with Dr. Schwarz as the patient is scheduled for chemotherapy in 2 days. He does want her to go ahead and come for that appointment. Discharge Plan Triage Chief Complaint: Chest Other ED Provider: Jaycee Mathis Dx/Rx/DC Orders Clinical Impression: Pneumonia Instructions: ED Pneumonia (Adult) Prescriptions: New levofloxacin 750 mg tablet 750 mg PO DAILY Qty: 4 RF: 0 No Action prochlorperazine maleate [Compazine] 5 mg tablet 5 mg PO TID PRN (Reason: nausea and vomiting) Qty: 30 RF: 0 oxycodone 5 mg capsule 5 mg PO Q4H PRNRF: 0 buspirone 10 mg tablet 10 mg PO BID RF: 0 escitalopram oxalate 20 mg tablet 20 mg PO DAILY RF: 0 Eliquis 5 mg tablet 5 mg PO BID Qty: 49 RF: 0 promethazine 25 mg tablet 25 mg PO TID PRN (Reason: nausea and vomiting) Qty: 21 RF: 0 prednisone 20 mg tablet 40 mg PO DAILY Qty: 10 RF: 0 Mucinex 1,200 mg tablet extended release 12hr 1,200 mg PO BID PRN (Reason: congestion) Qty: 10 RF: 0 ondansetron 8 mg tablet,disintegrating 8 mg PO Q8H PRN (Reason: nausea and vomiting) Qty: 30 RF: 2 lidocaine-prilocaine 2.5-2.5 % cream 1 applic topical ONCE PRN (Reason: port access) 30 Days Qty: 30 RF: 2 omeprazole 20 mg capsule,delayed release(DR/EC) 20 mg PO DAILY Qty: 30 RF: 2 sennosides [Senna Laxative] 8.6 mg tablet 8.6 mg PO BID Qty: 60 RF: 2 Primary Care Provider: Alysha Amaya Referrals: Trung Schwarz MD [NON-STAFF] - Keep Radha appointment Alysha Amaya PRODUCE RUNNER-C [Primary Care Provider] - Disposition Disposition: Home, Self Care
[2021-09-25] MEDS: Ondansetron 4 MG/2 ML Vial IV (09:12)
[2021-09-25] MEDS: Morphine 4 MG/ML Syringe IV (09:12)
[2021-09-25 09:13] VITALS: BP 145/85; PULSE 90; RESP 17; O2SAT 96
[2021-09-25 09:17] LABS: Absolute Lymphocyte Count 0.89 X10^3/uL (0.83-4.51); Absolute Neutrophil Count 3.9 X10^3/uL (2.0-7.7); Basophil# 0.02 X10^3/uL; Basophil% 0.4 % (0-1); Eosinophils% 1.8 % (0-5); Hemoglobin 9.6 g/dL (12.0-15.0); Lymphocyte # 0.89 X10^3/ul (0.83-4.51); Lymphocyte % 16.5 % (19-41); Mean Corpuscular Hgb 27.9 pg (27.0-32.0); Mean Corpuscular Volume 87.2 fL (81-99); Mean Platelet Vol. 8.8 fl (6.2-12.0); Monocyte# 0.46 X10^3/uL; Monocyte% 8.5 % (0-10); NRBC Flagged by Analyzer 0 % (0-5); Neutrophil # 3.89 X10^3/uL (2.7-7.7); Neutrophil % 71.9 % (47-70); POSITIVE MORPHOLOGY YES; Platelet Count 279 K/mm3 (150-450); RBC Distribution Width CV 21.2 % (11.6-14.6); RBC Distribution Width SD 64.2 fl (35.1-43.9); Red Blood Count 3.44 M/mm3 (4.2-5.4); White Blood Count 5.4 K/mm3 (4.4-11.0)
[2021-09-25 09:21] LABS: Differential Indicated SCAN CRITERIA MET
--- NOTE | 2021-09-25 09:30 | RAD_ITS ---
HISTORY: cp. TECHNIQUE: XR Chest 1 View. EXAM TIME: 2021-09-25 09:29. # of images incl. paperwork: 1. COMPARISON:CT 09/22/2021. FINDINGS: LINES/DEVICES: Right chest wall port again seen. CARDIOMEDIASTINAL BORDERS: Stable. LUNGS: Low lung volumes with unchanged bibasilar atelectasis, possible left basilar pneumonia. PLEURA: Mild left pleural effusion again seen. RAD/Chest 1 View (Portable) IMPRESSION: No significant interval change in mild left basilar opacity. at 0950 Reported and signed by: Kaitlin Zafar MD Electronically Signed: Kaitlin Zafar MD at 9:48 EST Tel , Service support ,
[2021-09-25 09:44] LABS: Differential Comment SCANNED
[2021-09-25 09:45] LABS: AST(SGOT) 17 U/L (15-37); Alanine Aminotransfer ALT/SGPT 23 U/L (13-56); Albumin, Serum 2.4 g/dL (3.2-5.0); Alkaline Phosphatase 73 U/L (45-117); Anion Gap 11 (5-15); Anisocytosis 2+; BUN 16 mg/dL (7-18); BUN/Creat Ratio 22.3 RATIO (10-20); Bilirubin, Direct 0.09 mg/dL (0.00-0.30); Calcium,Total 8.2 mg/dL (8.5-10.1); Chloride 103 mmol/L (98-107); Creatinine, Serum 0.72 mg/dL (0.55-1.02); EST Glomerular Filtration Rate 91 mL/min (>60); Est Glom Filt Rate - Afr Amer 110 mL/min (>60); Estimated Creatinine Clearance 79.82 ml/min; Globulin 3.7 g/dL (2.2-4.2); Glucose 92 mg/dL (74-106); Lipase 191 U/L (73-393); Macrocytosis 1+; Microcytosis 1+; Potassium 3.3 mmol/L (3.5-5.1); Protein, Total 6.1 g/dL (6.4-8.2); Sodium Level 140 mmol/L (136-145); Troponin-I HS 6 pg/mL (3.0-54.0)
[2021-09-25 10:00] VITALS: BP 148/89; PULSE 84; RESP 18; O2SAT 95
[2021-09-25] MEDS: levoFLOXacin 750 MG Tablet PO (11:05)
[2021-09-25 11:06] VITALS: BP 148/85; PULSE 86; O2SAT 97
== END 2021-09-25 11:14 | disposition home or self-care (01) ==
PROVIDERS: Emergency Provider Emergency Medicine; PCP Nurse Practitioner Adult Health; Visit Provider Emergency Medicine
DX: J18.9 Pneumonia, unspecified organism (principal); C18.9 Malignant neoplasm of colon, unspecified; E66.01 Morbid (severe) obesity due to excess calories; Z87.891 Personal history of nicotine dependence; Z86.711 Personal history of pulmonary embolism; Z86.718 Personal history of other venous thrombosis and embolism; Z79.01 Long term (current) use of anticoagulants; F41.9 Anxiety disorder, unspecified; F32.A Depression, unspecified; K21.9 Gastro-esophageal reflux disease without esophagitis; Z78.0 Asymptomatic menopausal state; Z79.899 Other long term (current) drug therapy; Z90.49 Acquired absence of other specified parts of digestive tract; Z68.36 Body mass index [BMI] 36.0-36.9, adult
CPT/HCPCS: 36591; 71045; 80048; 80076; 83690; 84484; 85025; 93005; 96374; 96375; 99284; A4216; J2405

== ENCOUNTER 2021-10-19 08:11 | Outpatient (CLI) | payer OTHER, SELFPAY ==
--- NOTE | 2021-10-19 08:15 | US_ITS ---
EXAM: US ABDOMEN LIMITED : 1970 CLINICAL INDICATION: eval for abd ascites TECHNIQUE: Real-time ultrasound of the abdomen with image documentation. This report was created using [employer] report generation technology. COMPARISON: None. FINDINGS: FREE FLUID: There is small amount of free fluid seen within the left upper and lower quadrants compatible with trace ascites. OTHER FINDINGS: Images were obtained in the right and left upper and lower quadrants. US/Abdomen Limited IMPRESSION: Trace amount of fluid in the left upper and lower quadrants which may represent ascites. at 0136 Reported and signed by: Clayton Bai MD Electronically Signed: Clayton Bai MD at 1:35 EST ,
== END 2021-10-19 23:59 | disposition home or self-care (01) ==
LOC: US 08:12
PROVIDERS: PCP Nurse Practitioner Adult Health; Referring Provider Nurse Practitioner Adult Health; Visit Provider Nurse Practitioner Adult Health
DX: R18.8 Other ascites (principal)
CPT/HCPCS: 76705

== ENCOUNTER 2021-10-29 21:02 | Emergency (ER) | payer OTHER, SELFPAY ==
[2021-10-29 21:03] VITALS: BP 130/96; PULSE 112; RESP 18; TEMP 35.9; O2SAT 96; BMI 36.6
--- NOTE | 2021-10-29 21:17 | EDS_ITS ---
HPI <CATIA Mitchell - Last Filed: 10/29/21 21:51> History of Present Illness Chief Complaint: Nausea/Vomiting/Diarrhea Narrative Narrative: 51-year-old female with past medical history of stage IV colon cancer on chemotherapy presents with N/V/D x 3 days. She states she got chemotherapy on 10/25 and then goes home with a pump that connects to her med port that administers chemotherapy over the next 48 hours. The night after finishing it on 10/27 she started to feel fatigued and nauseous. She started vomiting approximately 5 times a day and having 5-6 episodes of loose watery stools. She took Phenergan without improvement. She has abdominal wall discomfort from the vomiting but denies pain. No fever, chills, chest pain, shortness of breath, or cough. No hematemesis or blood in her stool. No urinary symptoms. PFS <CATIA Mitchell - Last Filed: 10/29/21 21:51> [facility] Medical History Abnormal CT scan Anxiety Anxiety and depression At high risk for deep venous thrombosis Back pain Chronic cough Colon cancer Depression DVT (deep venous thrombosis) Elevated serum creatinine Encounter for adjustment and management of vascular access device Encounter for chemotherapy management Former tobacco use Gastric reflux GERD (gastroesophageal reflux disease) Heart burn History of steroid therapy Hypokalemia Hypomagnesemia Left leg pain Malignant ascites Migraine headache Morbid obesity Oral candidiasis Post-menopausal Shortness of breath on exertion Wears dentures Wears glasses Weight loss Home Medications buspirone 10 mg PO BID 06/13/21 [History Last Taken 06/11/21] escitalopram oxalate 20 mg PO DAILY 06/13/21 [History Last Taken 06/11/21] apixaban [Eliquis] 5 mg PO BID #49 tab 07/28/21 [Rx Last Taken Unknown] lidocaine-prilocaine 2.5 %-2.5 % topical cream 1 applic TOPICAL ONCE PRN 30 Days #30 g 07/28/21 [Rx Last Taken Unknown] ondansetron 8 mg disintegrating tablet 8 mg PO Q8H PRN #30 tab 07/28/21 [Rx Last Taken Unknown] prochlorperazine maleate 5 mg tablet 5 mg PO TID PRN #30 tab 08/01/21 [Rx Last Taken Unknown] sennosides 8.6 mg tablet 8.6 mg PO BID #60 tab 08/01/21 [Rx Last Taken Unknown] promethazine 25 mg PO TID PRN #21 tab 08/05/21 [Rx Last Taken Unknown] guaifenesin [Mucinex] 1,200 mg PO BID PRN #10 tab 09/19/21 [Rx Last Taken Unknown] omeprazole 40 mg capsule,delayed release 40 mg PO DAILY #90 cap 10/07/21 [Rx Last Taken Unknown] hydrocodone-acetaminophen 5-325mg 5mg-325mg 1 tab PO Q6H PRN 10/11/21 [History Last Taken Unknown] nystatin 100,000 unit/mL oral suspension 5 ml PO Q6H #473 ml 10/11/21 [Rx Last Taken Unknown] methadone 5 mg tablet 5 mg PO tab 10/25/21 [History Last Taken Unknown] ondansetron 4 mg PO Q8H PRN PRN #12 tab 10/29/21 [Rx Last Taken Unknown] Allergy/AdvReac Type Severity Reaction Status Date / Time No Known Allergies Allergy Verified 10/25/21 08:29 Family History Father Diabetes Mother Hypertension Brother Hypertension Surgical History History of cholecystectomy (~06/2021) S/P section S/P rotator cuff repair Social History household members: family Smoking Status: Former smoker how long ago did patient quit smoking: Quit 2 years prior, smoked 1/2 ppd since she was a teenager until quitting. alcohol intake: never substance use type: does not use ROS <CATIA Mitchell - Last Filed: 10/29/21 21:51> ROS ED ROS Narrative Constitutional: Negative for fever, chills, malaise. Eyes: Negative for visual change. ENT: Negative for sore throat, ear pain, rhinorrhea. CVS: Negative for palpitations, chest pain, syncope. Respiratory: Negative for shortness of breath, cough, orthopnea. GI: Positive for nausea, vomiting, diarrhea. Negative for abdominal pain, constipation, melena, hematochezia. : Negative for dysuria, hematuria or frequency. Neuro: Negative for headache, motor/sensory dysfunction. Skin: Negative for rash, abscess, or wound. Musc: Negative for joint pain, swelling, trauma. Heme: Negative for easy bruising, bleeding, lymphadenopathy. EXAM <CATIA Mitchell - Last Filed: 10/29/21 21:51> Physical Exam Narrative Exam Narrative: CONST: Patient sitting in no acute distress. EYES: Normal inspection. ENT: Normal inspection, dry mucous membranes. NECK: Normal inspection. RESP: No respiratory distress, CTAB. CVS: Regular rate and rhythm, no murmur, no gallop. ABD: Soft with mild diffuse tenderness, no guarding or rebound, nondistended, no hepatosplenomegaly. Back: Normal inspection. SKIN: Color normal, no rash, warm, dry, intact. EXTREMITIES: Normal appearance, no pedal edema. NEURO: Oriented x4. PSYCH: Normal affect. Const Vital Signs: 10/29/21 21:03 Temperature 96.7 F L Temperature Source Temporal Pulse Rate 112 H Respiratory Rate 18 Blood Pressure 130/96 H Blood Pressure Mean 107 Pulse Ox 96 Oxygen Delivery Method Room Air <Dr. Kev Barker DO - Last Filed: 10/29/21 22:06> Physical Exam Const Vital Signs: 10/29/21 21:03 Temperature 96.7 F L Temperature Source Temporal Pulse Rate 112 H Respiratory Rate 18 Blood Pressure 130/96 H Blood Pressure Mean 107 Pulse Ox 96 Oxygen Delivery Method Room Air MDM <CATIA Mitchell - Last Filed: 10/29/21 21:51> [facility] Narrative Medical decision making narrative: Patient with history of colon cancer on chemotherapy presents with few day history of nausea vomiting and diarrhea. She appears well and nontoxic. Afebrile and vital signs within normal limits. She has dry mucous membranes on exam. Heart is regular, lungs clear bilaterally, abdomen soft with mild diffuse tenderness but no peritoneal signs and no distention. CBC shows mild leukopenia and anemia which are at baseline. BMP is within normal limits. She was treated with IV fluids, morphine, and Zofran with improvement. She will be prescribed Zofran for home and was discharged in stable condition. Diagnoses 1. Nausea and vomiting 2. Diarrhea 3. History of colon cancer on chemotherapy Lab Data Labs: Laboratory Results - last 24 hr 10/29/21 10/29/21 21:18 21:18 WBC 3.8 L RBC 3.77 L Hgb 11.2 L Hct 32.1 L MCV 85.1 MCH 29.7 MCHC 34.9 D RDW Std Deviation 47.4 H RDW Coeff of Mohsen 15.3 H Plt Count 279 MPV 9.3 Immature Gran % (Auto) 0.500 Neut % (Auto) 69.6 Lymph % (Auto) 21.9 [place] % (Auto) 6.4 Eos % (Auto) 1.3 Baso % (Auto) 0.3 Absolute Neuts (auto) 2.6 Absolute Lymphs (auto) 0.82 L Nucleated RBC % 0 Sodium 137 Potassium 3.5 Chloride 99 Carbon Dioxide 27.0 Anion Gap 11 BUN 7 Creatinine 0.64 Estim Creat Clear Calc 89.80 Est GFR (MDRD) Af Amer 126 Est GFR (MDRD) Non-Af 104 BUN/Creatinine Ratio 10.9 Glucose 94 Calcium 9.0 <Dr. Kev Barker, DO - Last Filed: 10/29/21 22:06> [facility] Narrative Medical decision making narrative: Patient was seen with me. I agree with the history and physical exam. Patient is a 51-year-old female who presents with nausea and vomiting that became worse today. Patient had recent chemotherapy. Patient did not have nausea and vomiting immediately after the chemotherapy treatment. Patient states that became worse today. Patient states she is unable to keep anything down. Patient denies any fevers or chills. Patient denies any chest pain or shortness of breath. Vital signs are stable except for mild tachycardia of 112. Patient is afebrile. Patient is in no acute distress. Oral mucosa is pink and moist. Neck is supple. Trachea is midline. There is no JVD. Heart was regular and t achycardic. Lungs are clear and equal bilaterally. Abdomen is soft. Bowel sounds are normal. There is some mild epigastric tenderness. There is no rebound or guarding noted. Cranial nerves II through XII are intact. There are no focal motor or sensory deficits. Patient was given IV fluids and Zofran. Patient was also given a dose of morphine for pain. CBC shows a white blood cell count of 3.8. Hemoglobin is 11.2 and hematocrit 32.1. Basic metabolic profile was essentially within normal limits. Patient states that the morphine made her more nauseated. Patient was given a dose of Phenergan. Patient was given a prescription for Phenergan. Patient was instructed to follow-up with her primary care physician in 5 to 7 days. Patient was instructed to continue her chemotherapy as scheduled. Patient understood and was agreeable with plan. All questions were answered. Lab Data Attestation: I reviewed the patient's lab results. Labs: Laboratory Results - last 24 hr 10/29/21 10/29/21 21:18 21:18 WBC 3.8 L RBC 3.77 L Hgb 11.2 L Hct 32.1 L MCV 85.1 MCH 29.7 MCHC 34.9 D RDW Std Deviation 47.4 H RDW Coeff of Mohsen 15.3 H Plt Count 279 MPV 9.3 Immature Gran % (Auto) 0.500 Neut % (Auto) 69.6 Lymph % (Auto) 21.9 [place] % (Auto) 6.4 Eos % (Auto) 1.3 Baso % (Auto) 0.3 Absolute Neuts (auto) 2.6 Absolute Lymphs (auto) 0.82 L Nucleated RBC % 0 Sodium 137 Potassium 3.5 Chloride 99 Carbon Dioxide 27.0 Anion Gap 11 BUN 7 Creatinine 0.64 Estim Creat Clear Calc 89.80 Est GFR (MDRD) Af Amer 126 Est GFR (MDRD) Non-Af 104 BUN/Creatinine Ratio 10.9 Glucose 94 Calcium 9.0 Discharge Plan Triage Chief Complaint: Nausea/Vomiting/Diarrhea ED Provider: Gris Turcios Dx/Rx/DC Orders Clinical Impression: Vomiting, Diarrhea Instructions: ED Vomiting and Diarrhea ... Prescriptions: New ondansetron 4 mg tablet,disintegrating 4 mg PO Q8H PRN PRN (Reason: Nausea) Qty: 12 RF: 0 No Action prochlorperazine maleate [Compazine] 5 mg tablet 5 mg PO TID PRN (Reason: nausea and vomiting) Qty: 30 RF: 0 omeprazole 40 mg capsule,delayed release(DR/EC) 40 mg PO DAILY Qty: 90 RF: 3 hydrocodone-acetaminophen 5-325 mg tablet 1 tab PO Q6H PRNRF: 0 nystatin 100,000 unit/mL suspension 5 ml PO Q6H Qty: 473 RF: 0 methadone 5 mg tablet 5 mg PO RF: 0 buspirone 10 mg tablet 10 mg PO BID RF: 0 escitalopram oxalate 20 mg tablet 20 mg PO DAILY RF: 0 Eliquis 5 mg tablet 5 mg PO BID Qty: 49 RF: 0 promethazine 25 mg tablet 25 mg PO TID PRN (Reason: nausea and vomiting) Qty: 21 RF: 0 Mucinex 1,200 mg tablet extended release 12hr 1,200 mg PO BID PRN (Reason: congestion) Qty: 10 RF: 0 ondansetron 8 mg tablet,disintegrating 8 mg PO Q8H PRN (Reason: nausea and vomiting) Qty: 30 RF: 2 lidocaine-prilocaine 2.5-2.5 % cream 1 applic topical ONCE PRN (Reason: port access) 30 Days Qty: 30 RF: 2 sennosides [Senna Laxative] 8.6 mg tablet 8.6 mg PO BID Qty: 60 RF: 2 Primary Care Provider: [facility] Evon Dukes [facility] - Activity Restrictions/Additional Instructions: Today you are evaluated for vomiting and diarrhea. Your electrolytes were normal. You were given IV fluids and I prescribe Zofran to take at home as needed for nausea and vomiting. Please follow-up with your oncologist next week. Return to the ER for new or worsening symptoms. Disposition Disposition: Home, Self Care
[2021-10-29] MEDS: Ondansetron 4 MG/2 ML Vial IV (21:22)
[2021-10-29 21:27] LABS: Absolute Lymphocyte Count 0.82 X10^3/uL (0.83-4.51); Absolute Neutrophil Count 2.6 X10^3/uL (2.0-7.7); Basophil# 0.01 X10^3/uL; Basophil% 0.3 % (0-1); Eosinophil# 0.05 X10^3/uL; Eosinophils% 1.3 % (0-5); Hematocrit 32.1 % (37-47); Hemoglobin 11.2 g/dL (12.0-15.0); Lymphocyte # 0.82 X10^3/ul (0.83-4.51); Lymphocyte % 21.9 % (19-41); Mean Corp Hgb Conc 34.9 g/dL (32-36); Mean Corpuscular Hgb 29.7 pg (27.0-32.0); Mean Corpuscular Volume 85.1 fL (81-99); Mean Platelet Vol. 9.3 fl (6.2-12.0); Monocyte# 0.24 X10^3/uL; Monocyte% 6.4 % (0-10); NRBC Flagged by Analyzer 0 % (0-5); Neutrophil # 2.61 X10^3/uL (2.7-7.7); Neutrophil % 69.6 % (47-70); Platelet Count 279 K/mm3 (150-450); RBC Distribution Width CV 15.3 % (11.6-14.6); RBC Distribution Width SD 47.4 fl (35.1-43.9); Red Blood Count 3.77 M/mm3 (4.2-5.4); White Blood Count 3.8 K/mm3 (4.4-11.0)
[2021-10-29] MEDS: Morphine 4 MG/ML Syringe IV (21:38)
[2021-10-29 21:40] LABS: Anion Gap 11 (5-15); BUN 7 mg/dL (7-18); BUN/Creat Ratio 10.9 RATIO (10-20); Chloride 99 mmol/L (98-107); Creatinine, Serum 0.64 mg/dL (0.55-1.02); EST Glomerular Filtration Rate 104 mL/min (>60); Est Glom Filt Rate - Afr Amer 126 mL/min (>60); Glucose 94 mg/dL (74-106); Potassium 3.5 mmol/L (3.5-5.1); Sodium Level 137 mmol/L (136-145)
[2021-10-29] MEDS: proMETHazine 25 MG/ML Syringe 6.25 MG IV (21:59)
[2021-10-29 22:24] VITALS: BP 126/83; PULSE 93; O2SAT 98
== END 2021-10-29 22:24 | disposition home or self-care (01) ==
LOC: ED 22:07
PROVIDERS: Emergency Provider Physician Assistant; Visit Provider Physician Assistant
DX: R11.2 Nausea with vomiting, unspecified (principal); C18.9 Malignant neoplasm of colon, unspecified; E66.01 Morbid (severe) obesity due to excess calories; D64.9 Anemia, unspecified; Z87.891 Personal history of nicotine dependence; F32.A Depression, unspecified; F41.9 Anxiety disorder, unspecified; K21.9 Gastro-esophageal reflux disease without esophagitis; Z86.718 Personal history of other venous thrombosis and embolism; Z79.01 Long term (current) use of anticoagulants; Z79.899 Other long term (current) drug therapy; R19.7 Diarrhea, unspecified; Z68.36 Body mass index [BMI] 36.0-36.9, adult
CPT/HCPCS: 80048; 85025; 96361; 96374; 96375; 99283; J7040; A4216; J2405

== ENCOUNTER 2021-11-25 08:10 | Outpatient (CLI) | payer OTHER, SELFPAY ==
--- NOTE | 2021-11-25 08:13 | US_ITS ---
STUDY: ABDOMINAL ULTRASOUND REASON FOR EXAM: Female, 51 years old. ABDOMINAL PAIN TECHNIQUE: Transabdominal ultrasound was performed with real-time and static allen scale imaging. COMPARISON: None. FINDINGS: Liver: There is increased echogenicity consistent with fatty infiltration. The bile ducts are within normal limits. There is hepatic color flow. The direction of portal flow is hepatopetal. There is no demonstrated mass lesion. Gallbladder: The patient is status post cholecystectomy. Common Bile Duct (C.B.D.): The common bile duct measures ( in mm): 6 Pancreas: Normal size of the head and body of the pancreas. There is normal echogenicity of the pancreas. There is no demonstrated pancreatic mass or cyst. Spleen: Normal size of the spleen. The spleen measures 13.4 cm. Right Kidney: Normal size of the right kidney. The right kidney measures 10.5 cm. .There is a normal cortex of the kidney. There is no demonstrated renal mass or cyst. There is no right hydronephrosis. Left Kidney: Normal size of the left kidney. The left kidney measures 10 cm. . There is a normal cortex of the left kidney. There is no demonstrated renal mass or cyst. There is no left hydronephrosis. Aorta: 23 mm in maximal aortic diameter. I.V.C.: The IVC is patent. There is no ascites. US/Abdomen Complete IMPRESSION: Fatty liver. Electronically Signed: Arie Aguilar MD at 20:24 EDT ,
== END 2021-11-25 23:59 | disposition home or self-care (01) ==
LOC: US 08:11
PROVIDERS: Referring Provider Internal Medicine Gastroenterology; Visit Provider Internal Medicine Gastroenterology
DX: K76.0 Fatty (change of) liver, not elsewhere classified (principal); R18.0 Malignant ascites
CPT/HCPCS: 76700

== ENCOUNTER 2021-12-02 12:42 | Outpatient (CLI) | payer OTHER, SELFPAY ==
--- NOTE | 2021-12-02 12:44 | CT_ITS ---
STUDY: CT CHEST, ABDOMEN T PELVIS WITH CONTRAST ENHANCEMENT OF 1508 HOURS ON 12/02/2021 REASON FOR EXAM: 51-year-old female. Rising CEA, assess response to treatment for colonic cancer. RADIATION DOSAGE (If Supplied By Facility): CTDIvol = ( 17.34 ) mGy, DLP = ( 1901.15 ) mGycm TECHNIQUE: Transaxial imaging was performed following intravenous administration of Oral and amp; IV Gastrografin and amp; 100mL Isovue-300. Individualized dose optimization techniques were used for this CT. COMPARISON: 09/22/2021. FINDINGS: CHEST No cardiomegaly. There is a moderate left pleural effusion with a moderate left lower lobe alveolar infiltrative process compatible with a pneumonia. There is no evidence of pulmonary thromboembolism. There is no evidence of hilar or mediastinal lymphadenopathy. Mild atelectatic changes in the right lower lobe. There is no evidence of a pleural abnormalities. There is no evidence of pulmonary metastatic disease. There is no evidence of a thoracic aortic dissection or aneurysm. ABDOMEN AND PELVIS Mild hepatomegaly with diffuse fatty infiltration. Normal spleen. Normal stomach without evidence of hernia. Partially contracted gallbladder without gallstones. Normal pancreas without pseudocyst or mass lesions. No pancreatitis. Common duct measures 4 mm in diameter. No dilatation image guided biliary system. Normal kidneys without cystic or solid mass lesions or obstructive uropathy. History of previous colonic surgery. No demonstration of colonic mass lesions. No diverticulitis, colitis, or intestinal obstruction. No peritoneal implants. Engorgement of the visceral arteries, but no distinct evidence of a mesenteritis. No intestinal obstruction. Appendix is not visualized. Normal bladder. Normal anteverted uterus. No ovarian cystic or solid mass lesions. OSSEOUS STRUCTURES There are punctate sclerotic lesions in the T7, T8, T10,, L1, L2, L3 (2 lesions), and L4 vertebral bodies. The punctate sclerotic lesion in the left ischium, 2 lesions in the right greater trochanteric region, 2 lesions in the left greater trochanteric region, one lesion in the medial right iliac crest, and one lesion in the right sacrum. Most often, colonic cancer has osteolytic metastases. Back, sometimes of colonic cancer do have sclerotic metastases. Also, one must consider the possibility of thyroid metastatic disease. CT/CT Chest, Abd, Pel w/Contrast IMPRESSION: 1. Moderate left pleural effusion with a moderate left lower lobe alveolar infiltrative process, compatible with pneumonia. 2. No other evidence of active cardiopulmonary disease. 3. No pulmonary or, mediastinal, or pleural metastatic disease. 4. Mild hepatomegaly with diffuse fatty infiltration. 5. No pleural metastases or periaortic or pelvic lymphadenopathy. 6. No demonstration of a colonic mass lesion. Residue of previous colonic surgery. 7. Engorgement of the visceral arteries, but no evidence of a mesenteritis. 8. Importantly, there is evidence of extensive sclerotic metastatic disease (see above). Some tightness of colonic cancer do produce sclerotic osseous metastases, but one must also consider the possibility of thyroid or breast neoplasms. 9. No obstructive uropathy. 10. No diverticulitis, colitis, intestinal obstruction. 11. No pancreatitis or cholecystitis. Electronically Signed: Kamar Aly MD at 0:50 EDT ,
[2021-12-02] MEDS: 0.9% Saline Lock 10 ML Syringe IV (15:16)
== END 2021-12-02 23:59 | disposition home or self-care (01) ==
LOC: CT 12:43
PROVIDERS: Referring Provider Nurse Practitioner Family; Visit Provider Nurse Practitioner Family
DX: C18.2 Malignant neoplasm of ascending colon (principal)
CPT/HCPCS: 71260; 74177; Q9967

== ENCOUNTER 2021-12-09 13:24 | Outpatient (CLI) | payer OTHER, SELFPAY ==
--- NOTE | 2021-12-09 | IMM_PTH ---
PATIENT: YENY CERON LOC: [facility]#:[id number] AGE/SX: 51/F ROOM: RE12/09/[address]: Dr. Trung Schwarz MD : 1970 BED: DIS: 12/09/2021 SPEC #: [id number] RECD: 12/13/21 12:21 STATUS: LEVON REQ #: [id number] RISHABH: 12/09/21 00:[address]: Trung Schwarz DEPT: IMMUNOHISTOCHEMISTRY RECD BY: Scarlet Steiner ENTERED: 12/13/21 12:33 SP TYPE: IMMUNO OTHR DR: [facility] Tissues: THORACIC FLUID Procedures: NAPSIN A (add) CA-125 (add) CEA (add) CK20 (add) CK7 (add) CK8 (add) KI-67 (add) P53 (add) ME (add) TTF1 (add) Vimentin (add) Pankeratin (add) CDX2 (add) ER (initial) PHYSICIAN & [address] [address] SPECIMEN INFORMATION: Tissue Source: Thoracentesis Clinical Info: Left pleural effusion Specimen Number: [id number] CPT code: 74997, 98425 x13 METHODOLOGY: Deparaffinized sections of prefer/formalin-fixed tissue or PAP/DQ stained slides are incubated with monoclonal/polyclonal antibodies/oligonucleotide probes. Localization is made via biotin free immunoperoxidase method. Appropriate controls are performed and reacted as expected. Results on target cell population are indicated in the following table: RESULTS: ANTIBODY / CLONE RESULT ER (6F11) negative ME (1E2) negative AE1-3 (AE1/AE3/PCK26) positive CK7 (OV-TL12/30) negative CK8 (34sfnvN80) positive CK20 (KS20.8) positive CDX2 ([id number]) negative Vimentin (V9) negative TTF-1 (8G7G3/1) negative Napsin A (Rabbit Polyclonal) negative CEA (11-7/TF-3HB-1) positive CA125 (OC125) positive, focal P53 (DO-7) negative Ki-67 (30-9) positive, 80% These tests were developed and their performance characteristics determined by [facility]. They may not have been cleared or approved by the U.S. Food and Drug Administration. The FDA has determined that such clearance or approval is not necessary. The above immunohistochemical/dualISH markers are ordered and reviewed by the Pathologist. INTERPRETATION: Thoracentesis (cell block): Metastatic non-small cell carcinoma. See comment. AM:twan 12/14/2021 Comment: A lower GI primary is favored.
--- NOTE | 2021-12-09 | FLU_PTH ---
PATIENT: YENY CERON LOC: [facility]#:[id number] AGE/SX: 51/F ROOM: RE12/09/[address]: Dr. Trung Schwarz MD : 1970 BED: DIS: 12/09/2021 SPEC #: [id number] RECD: 12/09/21 14:18 STATUS: ELVON MILADY #: [id number] RISHABH: 12/09/21 00:[address]: Trung Schwarz DEPT: CYTOLOGY RECD BY: Emily Walsh ENTERED: 12/12/21 12:18 SP TYPE: Fluid OTHR DR: [facility] Tissues: THORACIC FLUID Procedures: Special Stain Group II Surgery Specimen Level IV Cytospin Fluid HEADER OPERATION: Ultrasound-guided thoracentesis, left PRE-OP DIAGNOSIS: Left pleural effusion TISSUE SUBMITTED: Thoracentesis fluid for cytology DIAGNOSIS CYTOLOGY Thoracentesis fluid for cytology (cytospin and cell block): Positive for malignant cells consistent with metastatic adenocarcinoma. See comment. AM:twan 12/13/2021 COMMENT Immunohistochemistry ([id number]) supports the above diagnosis and is consistent with a GI primary. Clinical correlation is suggested. Reference is made to the patient's previous cytology ([id number]) in which malignant cells present derived from metastatic non-small cell carcinoma were identified. Case has been reviewed in consultation with Dr. Cadena who concurs with the above diagnosis. IDC:SJ CYTOLOGY STUDY Slides are reviewed. CYTOLOGY GROSS Received is 90 ml of yellow cloudy fluid labeled with the patient's name and and designated per the requisition as thoracentesis. Submitted for cytology preparation including cell block. / twan 12/12/2021 TC:0 CPT: 51182, 96687
--- NOTE | 2021-12-09 13:27 | US_ITS ---
PROCEDURE: ULTRASOUND GUIDED THORACENTESIS. DATE: 12/09/2021. INDICATION: Female, 51 years old. Left pleural effusion. PHYSICIAN: Carlitos Roberts M.D. PROCEDURE: The risks, benefits, and alternatives to the procedure were explained to the patient. The specific risks of bleeding, infection, and pneumothorax requiring chest tube insertion were discussed and accepted. Written informed consent was obtained. Ultrasonographic evaluation of the left lower pleural space was carried out. An adequate pocket was identified. The patient was placed in the sitting, upright position. The overlying skin was prepped and draped in sterile fashion. 1% lidocaine was administered subcutaneously for local anesthesia. Under ultrasound guidance, a 5 Ukrainian thoracentesis needle/catheter system was advanced into the left posterior lower pleural fluid collection. Approximately 850 mL of ramez-colored fluid was drained. The catheter was removed, and a sterile dressing was applied. A specimen was collected and sent to the laboratory for analysis, as requested by the referring clinician. The patient tolerated the procedure well. A chest x-ray was ordered. US/Thoracentesis W US IMPRESSION: Ultrasound-guided left thoracentesis. Electronically Signed: Carlitos Roberts MD at 14:34 EDT ,
[2021-12-09] MEDS: Lidocaine 2% (20 ml mdv) 20 ML Vial INFILT (13:43)
[2021-12-09 13:44] VITALS: BP 115/82; BP 119/70; BP 125/78; BP 126/82; BP 129/81; BP 137/80; PULSE 105; PULSE 112; PULSE 114; PULSE 94; PULSE 99; RESP 12; RESP 16; RESP 18; RESP 20; RESP 22; RESP 24; TEMP 36.7; O2SAT 94; O2SAT 95; O2SAT 96; O2SAT 97
--- NOTE | 2021-12-09 14:00 | RAD_ITS ---
STUDY: X-RAY CHEST REASON FOR EXAM: Female, 51 years old. Post thora TECHNIQUE: AP inspiration and expiration views. COMPARISON: Comparison is made with prior study dated 09/25/2001 FINDINGS: A right-sided lacey catheter is in situ with the tip at the junction of the superior vena cava and right atrium. Blunting of both costophrenic angles with a mild degree of left basilar atelectasis. No evidence of pneumothorax on the post left thoracentesis. RAD/Chest Insp/Exp 2 View IMPRESSION: No evidence of pneumothorax on the post left thoracentesis. Electronically Signed: Carlitos Roberts MD at 14:14 EDT ,
== END 2021-12-09 23:59 | disposition home or self-care (01) ==
PROVIDERS: Referring Provider Internal Medicine Medical Oncology; Visit Provider Internal Medicine Medical Oncology
DX: C18.2 Malignant neoplasm of ascending colon (principal); J91.0 Malignant pleural effusion
CPT/HCPCS: 32555; 71046; 88108; 88305; 88313; 88341; 88342

== ENCOUNTER 2021-12-15 08:01 | Outpatient (CLI) | payer OTHER, SELFPAY ==
--- NOTE | 2021-12-15 08:03 | NM_ITS ---
CLINICAL: 51-year-old female with history of colorectal carcinoma. WHOLE BODY 99m Tc MDP RADIONUCLIDE BONE SCINTIGRAPHY COMPARISON: None available FINDINGS: Following the intravenous administration of 27.0 mCi of 99m Tc MDP, whole body bone images reveal: 1. Increased radiopharmaceutical concentration is defined in the mid cervical spine posteriorly on the left and right, the acromioclavicular, sternoclavicular and glenohumeral compartments of both shoulders, the posterior midline sacrum. 2. The remaining skeletal structures are scintigraphically unremarkable with normal-appearing renal images and urinary bladder activity identified. NM/Bone Scan Whole Body IMPRESSION: 1. The increase in radiopharmaceutical concentration identified in the cervical spine and sacrum, bilateral shoulders is most consistent with the presence of degenerative arthritis. 2. There is no definitive typical scintigraphic evidence of skeletal metastatic disease on the current examination. Electronically Signed: Elias Christianson DO at 7:19 EDT ,
[2021-12-15] MEDS: 0.9% Saline Lock 10 ML Syringe IV (08:19)
== END 2021-12-15 23:59 | disposition home or self-care (01) ==
LOC: NM 08:02
PROVIDERS: Referring Provider Internal Medicine Medical Oncology; Visit Provider Internal Medicine Medical Oncology
DX: C18.2 Malignant neoplasm of ascending colon (principal); C79.51 Secondary malignant neoplasm of bone; J91.0 Malignant pleural effusion
CPT/HCPCS: 78306; A9503; A4216

== ENCOUNTER 2021-12-18 21:37 | Emergency (ER) | payer OTHER, SELFPAY ==
[2021-12-18 21:37] VITALS: BP 147/88; PULSE 122; RESP 16; TEMP 36.4; O2SAT 96; BMI 32.8
--- NOTE | 2021-12-18 22:15 | CT_ITS ---
STUDY: CT ABDOMEN AND PELVIS WITH CONTRAST REASON FOR EXAM: Female, 51 years old. abdominal pain RADIATION DOSAGE (If Supplied By Facility): CTDIvol = ( 18.30 ) mGy, DLP = ( 1287.10 ) mGycm TECHNIQUE: Transaxial images were obtained from the dome of the diaphragm to the symphysis pubis without oral contrast. IV 100mL Isovue-370 was administered. Sagittal and coronal images were reconstructed. Individualized dose optimization techniques were used for this CT. COMPARISON: CT chest abdomen pelvis 12/02/2021. FINDINGS: LOWER CHEST: Moderate left pleural effusion with compressive atelectasis and/or consolidation in the left lower lobe and lingula similar to slightly increased. Small right pleural effusion and consolidation right lower lobe is increased.. LIVER: Enlarged. Diffuse fatty infiltration. GALLBLADDER/BILE DUCTS: Unremarkable. PANCREAS: Unremarkable. SPLEEN: Unremarkable. ADRENAL GLANDS: 1.7 cm left adrenal nodule unchanged. KIDNEYS / URETERS: Unremarkable. BOWEL / MESENTERY: Wall thickening of small bowel relatively clustered in the lower abdomen centrally. Colonic wall thickening mainly the transverse colon may be suboptimal distention. Mild diffuse stranding of the mesentery is increased. More diffuse thickening and nodularity anteriorly extending to the lower abdomen. Small amount of fluid in the mesentery. More localized component of fluid along the greater curvature of the stomach measures approximately 4.5 x 1.5 cm axial by 2 cm craniocaudal with partial peripheral enhancement. No bowel obstruction. APPENDIX: Identified and normal. No evidence of acute appendicitis. PERITONEUM: No free Minimal free fluid in the pelvis. air. No free fluid. VESSELS: Abdominal aorta is normal caliber. RETROPERITONEUM: Unremarkable. REPRODUCTIVE ORGANS: Unremarkable. Surgical clips bilateral adnexal regions. BLADDER: Minimally distended. ABDOMINAL WALL: Unremarkable. BONES: Scattered small sclerotic lesions especially through the spine unchanged. No acute abnormality. OTHER: None. CT/Abdomen/Pelvis W IV Cont ONLY IMPRESSION: 1. Diffuse bowel wall thickening involving small bowel and portion of the colon with mesenteric stranding and nodularity. Findings may be inflammatory enterocolitis, related to treatment posttreatment change, or metastatic disease peritoneal carcinomatosis. 2. Small amount of ascites including a localized collection along the gastric wall. 3. Bilateral pleural effusions and consolidation in the lung bases slightly increased on the left abdomen on the right which may be consistent with pneumonia. 4. Left adrenal nodule and sclerotic lesions unchanged. Electronically Signed: Aparna Jade MD at 0:12 EDT ,
--- NOTE | 2021-12-18 22:15 | EKG12_ITS ---
Test Reason : ABD PAIN Blood Pressure : / mmHG Vent. Rate : 116 BPM Atrial Rate : 116 BPM P-R Int : 138 ms QRS Dur : 082 ms QT Int : 322 ms P-R-T Axes : 037 026 075 degrees QTc Int : 447 ms Sinus tachycardia Nonspecific T wave abnormality Abnormal ECG Confirmed by MARKO TRENT, COLT ([id number]), editor map EDILMA ANDRE ([id number]) on 12/21/2021 11:27:33 AM Referred By: AJ Confirmed By:COLT ZHU MD
--- NOTE | 2021-12-18 22:16 | EX.ED.DYSGE1 ---
HPI History of Present Illness Chief Complaint: Abd Pain Narrative Narrative: Patient presents with nausea and vomiting. She has stage IV colon cancer and she is on chemotherapy although she has not had chemotherapy for 2 weeks. Apparently she has been vomiting for the past 3 days, she has Phenergan and Zofran at home and if not helped. She also has some abdominal pain which reminds her of the abdominal pain she had when she first got diagnosed with colon cancer. She is denying any fevers or chills. She has no urinary symptoms. She is denying diarrhea or constipation. [facility] Medical History Anxiety and depression At high risk for deep venous thrombosis Back pain Chronic cough Colon cancer Dehydration DVT (deep venous thrombosis) Elevated serum creatinine Encounter for adjustment and management of vascular access device Encounter for chemotherapy management Former tobacco use GERD (gastroesophageal reflux disease) Heart burn History of steroid therapy Hypokalemia Hypomagnesemia Left leg pain Malignant ascites Migraine headache Morbid obesity Nausea & vomiting Oral candidiasis Post-menopausal Shortness of breath on exertion Wears dentures Wears glasses Weight loss Home Medications buspirone 10 mg PO BID 06/13/21 [History Last Taken 06/11/21] escitalopram oxalate 20 mg PO DAILY 06/13/21 [History Last Taken 06/11/21] apixaban [Eliquis] 5 mg PO BID #49 tab 07/28/21 [Rx Last Taken Unknown] lidocaine-prilocaine 2.5 %-2.5 % topical cream 1 applic TOPICAL ONCE PRN 30 Days #30 g 07/28/21 [Rx Last Taken Unknown] prochlorperazine maleate 5 mg tablet 5 mg PO TID PRN #30 tab 08/01/21 [Rx Last Taken Unknown] sennosides 8.6 mg tablet 8.6 mg PO BID #60 tab 08/01/21 [Rx Last Taken Unknown] omeprazole 40 mg capsule,delayed release 40 mg PO DAILY #90 cap 10/07/21 [Rx Last Taken Unknown] hydrocodone-acetaminophen 5-325mg 5mg-325mg 1 tab PO Q6H PRN 10/11/21 [History Last Taken Unknown] methadone 5 mg tablet 5 mg PO tab 10/25/21 [History Last Taken Unknown] dicyclomine 20 mg tablet 20 mg PO BID #60 tab 11/04/21 [Rx Last Taken Unknown] ondansetron 8 mg disintegrating tablet 8 mg PO Q8H PRN #30 tab 11/04/21 [Rx Last Taken Unknown] scopolamine base 1 mg over 3 days transdermal patch 1 patch TRANSDERMAL Q3D PRN #10 ea 11/04/21 [Rx Last Taken Unknown] potassium chloride 20 mEq tablet,extended release 20 meq PO BID #14 tab 11/16/21 [Rx Last Taken Unknown] haloperidol 1 mg PO BID #4 tab 12/19/21 [Rx Last Taken Unknown] Allergy/AdvReac Type Severity Reaction Status Date / Time No Known Allergies Allergy Verified 12/06/21 08:30 Family History Father Diabetes Mother Hypertension Brother Hypertension Surgical History History of cholecystectomy (~06/2021) S/P section S/P rotator cuff repair Social History household members: family Smoking Status: Former smoker how long ago did patient quit smoking: Quit 2 years prior, smoked 1/2 ppd since she was a teenager until quitting. alcohol intake: never substance use type: does not use ROS ROS ED ROS Narrative Past medical history: Reviewed, includes colon cancer, history of neutropenia secondary to colon cancer and chemo, GERD, history of PE. Medications: Reviewed Social history: Noncontributory Review of systems: All systems negative except as indicated General: No fever. Generalized weakness as in HPI Eyes: No visual changes ENT: No upper airway congestion, normal voice Neck: No neck pain Cardiovascular: No palpitations or lightheadedness Chest wall: She has rib pain from known metastases. Respiratory: No shortness of breath or cough Gastrointestinal: As in HPI Genitourinary: No dysuria Musculoskeletal: Negative Skin: No rash Neurological: No memory loss, confusion or any focal weakness Psych: No recent behavioral changes Hematologic: She is prone to easy bleeding secondary to her Eliquis EXAM Physical Exam Narrative Exam Narrative: Physical exam General: Patient appears uncomfortable. She appears chronically ill Head: Normocephalic, Atraumatic Eyes: Conjunctiva not pale ENT: Dry mucous membranes Neck: Supple, Nontender, No lymphadenopathy Cardiovascular: Regular tachycardia no obvious murmurs Respiratory: No distress, coarse bilateral breath sounds but no respiratory distress Chest wall: The port is intact without any signs of cellulitis Abdomen: There is significant abdominal tenderness throughout the entire abdomen. There is guarding but no rebound tenderness. Back: Nontender, Normal Inspection. Negative for: CVA tenderness Extremities: Scant lower extremity edema Skin: Normal color, No rash Neurological: Alert, Normal Strength, Normal Sensation Psychological: Somewhat anxious Const Vital Signs: 12/18/21 21:37 12/18/21 22:35 12/18/21 23:20 Temperature 97.5 F L 97.9 F Temperature Source Temporal Temporal Pulse Rate 122 H 78 Respiratory Rate 16 17 Blood Pressure 147/88 H 125/92 H 116/74 Blood Pressure Mean 107 103 88 Pulse Ox 96 98 Oxygen Delivery Method Room Air Room Air 12/19/21 00:25 Temperature 98.2 F Temperature Source Temporal Pulse Rate 92 Respiratory Rate 14 Blood Pressure 115/78 Blood Pressure Mean 90 Pulse Ox 95 Oxygen Delivery Method Room Air MDM MDM MDM Narrative Medical decision making narrative: Patient has a work-up that is consistent with metastatic disease but no acute process. Because she tried Phenergan and Zofran at home and because her QTC was normal I gave her Haldol which significantly improved her nausea she has not vomited since being here. Her pain is now under control. She wants to go home I think this is reasonable but if anything changes she is to return. Her urine is contaminated I will send it for culture but otherwise I do not believe she meets treatment criteria. I will discharge in stable condition she did request some Haldol for nausea for home which is reasonable. Lab Data Labs: Laboratory Results - last 24 hr 12/18/21 12/18/21 12/18/21 22:00 22:00 22:34 WBC 7.9 RBC 3.99 L Hgb 11.5 L Hct 34.3 L MCV 86.0 MCH 28.8 MCHC 33.5 RDW Std Deviation 48.8 H RDW Coeff of Mohsen 15.4 H Plt Count 319 MPV 9.7 Immature Gran % (Auto) 1.300 H Neut % (Auto) 75.1 H Lymph % (Auto) 11.1 L Hopkins % (Auto) 11.3 H Eos % (Auto) 0.8 Baso % (Auto) 0.4 Absolute Neuts (auto) 6.0 Absolute Lymphs (auto) 0.88 Nucleated RBC % 0 Sodium 132 L Potassium 3.2 L Chloride 92 L Carbon Dioxide 31.0 Anion Gap 9 BUN 11 Creatinine 0.69 Estim Creat Clear Calc 83.29 Est GFR (MDRD) Af Amer 115 Est GFR (MDRD) Non-Af 95 BUN/Creatinine Ratio 16.0 Glucose 102 Calcium 8.9 Total Bilirubin 0.30 AST 16 ALT 9 L Alkaline Phosphatase 177 H Total Protein 6.7 Albumin 1.8 L Globulin 4.9 H Albumin/Globulin Ratio 0.4 L Lipase 32 L Urine Color Yellow Urine Clarity Turbid Urine pH 5.0 Ur Specific Stinnett 1.030 Urine Protein 30 H Urine Glucose (UA) Normal Urine Ketones 5 H Urine Occult Blood 25 H Urine Nitrite Negative Urine Bilirubin 3 H Urine Urobilinogen 1 H Ur Leukocyte Esterase 100 H Urine RBC 0 SEEN Urine WBC 5-10 SEEN Ur Squamous Epith Cells 25-50 SEEN Calcium Oxalate Crystal 2+ Urine Bacteria 1+ Urine Mucus 0 SEEN Radiography Diagnostic Testing: Clinical Impression(s) from Imaging Studies Abdomen/Pelvis CT 12/18/21 22:15 IMPRESSION: 1. Diffuse bowel wall thickening involving small bowel and portion of the colon with mesenteric stranding and nodularity. Findings may be inflammatory enterocolitis, related to treatment posttreatment change, or metastatic disease peritoneal carcinomatosis. 2. Small amount of ascites including a localized collection along the gastric wall. 3. Bilateral pleural effusions and consolidation in the lung bases slightly increased on the left abdomen on the right which may be consistent with pneumonia. 4. Left adrenal nodule and sclerotic lesions unchanged. Electronically Signed: Aparna Jade MD at 0:12 EDT , EKG Initial EKG: Comments: Sinus tachycardia with a rate of 116. Normal LA and QTc intervals. Nonspecific T wave abnormality especially in the lateral precordial leads. Otherwise unremarkable EKG Interpreted by emergency doctor. Discharge Plan Triage Chief Complaint: Abd Pain ED Provider: Jarrod Gregory Dx/Rx/DC Orders Clinical Impression: Personal history of colon cancer, stage IV, Nausea & vomiting, Acute dehydration Instructions: ED Vomiting (Adult) Prescriptions: New haloperidol 1 mg tablet 1 mg PO BID Qty: 4 RF: 0 No Action prochlorperazine maleate [Compazine] 5 mg tablet 5 mg PO TID PRN (Reason: nausea and vomiting) Qty: 30 RF: 0 omeprazole 40 mg capsule,delayed release(DR/EC) 40 mg PO DAILY Qty: 90 RF: 3 hydrocodone-acetaminophen 5-325 mg tablet 1 tab PO Q6H PRNRF: 0 methadone 5 mg tablet 5 mg PO RF: 0 potassium chloride 20 mEq tablet extended release 20 meq PO BID Qty: 14 RF: 0 buspirone 10 mg tablet 10 mg PO BID RF: 0 escitalopram oxalate 20 mg tablet 20 mg PO DAILY RF: 0 Eliquis 5 mg tablet 5 mg PO BID Qty: 49 RF: 0 lidocaine-prilocaine 2.5-2.5 % cream 1 applic topical ONCE PRN (Reason: port access) 30 Days Qty: 30 RF: 2 sennosides [Senna Laxative] 8.6 mg tablet 8.6 mg PO BID Qty: 60 RF: 2 ondansetron 8 mg tablet,disintegrating 8 mg PO Q8H PRN (Reason: nausea and vomiting) Qty: 30 RF: 2 dicyclomine 20 mg tablet 20 mg PO BID Qty: 60 RF: 2 scopolamine base 1 mg over 3 days patch 3 day 1 patch transdermal Q3D PRN (Reason: nausea and vomiting) Qty: 10 RF: 2 Primary Care Provider: [facility] Evon Dukes Referrals: [facility] Evon Dukes [Primary Care Provider] - 2 Days Disposition Disposition: Home, Self Care
[2021-12-18 22:24] LABS: Absolute Lymphocyte Count 0.88 X10^3/uL (0.83-4.51); Basophil# 0.03 X10^3/uL; Basophil% 0.4 % (0-1); Eosinophil# 0.06 X10^3/uL; Eosinophils% 0.8 % (0-5); Hematocrit 34.3 % (37-47); Hemoglobin 11.5 g/dL (12.0-15.0); Lymphocyte # 0.88 X10^3/ul (0.83-4.51); Lymphocyte % 11.1 % (19-41); Mean Corp Hgb Conc 33.5 g/dL (32-36); Mean Corpuscular Hgb 28.8 pg (27.0-32.0); Mean Platelet Vol. 9.7 fl (6.2-12.0); Monocyte% 11.3 % (0-10); NRBC Flagged by Analyzer 0 % (0-5); Neutrophil # 5.97 X10^3/uL (2.7-7.7); Neutrophil % 75.1 % (47-70); Platelet Count 319 K/mm3 (150-450); RBC Distribution Width CV 15.4 % (11.6-14.6); RBC Distribution Width SD 48.8 fl (35.1-43.9); Red Blood Count 3.99 M/mm3 (4.2-5.4); White Blood Count 7.9 K/mm3 (4.4-11.0)
[2021-12-18] MEDS: 0.9% Normal Saline 1,000 ML 1000 ML IV (22:26)
[2021-12-18] MEDS: Haloperidol Lactate 5 MG/ML Vial 2 MG IV (22:26)
[2021-12-18] MEDS: HYDROmorphone 1 MG/ML Syringe IV (22:27)
[2021-12-18 22:35] VITALS: BP 125/92
[2021-12-18 22:38] LABS: Mucous, Urine 0 SEEN /hpf (<or=2+); Red Blood Cells-Urine 0 SEEN /hpf (0-5)
[2021-12-18 22:42] LABS: Color, Urine Yellow (Yellow); Glucose, Dipstick Normal (Normal); Ketone-Dipstick 5 mg/dl (Negative); Leukocyte Esterase-Dipstick 100 /ul (Negative); Nitrite-Dipstick Negative (Negative); Occult Blood-Urine 25 /ul (Negative); Protein-Dipstick 30 mg/dl (Negative); Urine Clarity Turbid (Clear); Urine Urobilinogen 1 mg/dl (Normal)
[2021-12-18 22:44] LABS: Urine Bilirubin Dipstick 3 mg/dL (Negative)
[2021-12-18 22:48] LABS: White Blood Cells 5-10 SEEN /hpf (0-5)
[2021-12-18 22:49] LABS: ALB/GLOB Ratio 0.4 RATIO (0.9-2.4); AST(SGOT) 16 U/L (15-37); Alanine Aminotransfer ALT/SGPT 9 U/L (13-56); Albumin, Serum 1.8 g/dL (3.2-5.0); Alkaline Phosphatase 177 U/L (45-117); Anion Gap 9 (5-15); BUN 11 mg/dL (7-18); Calcium,Total 8.9 mg/dL (8.5-10.1); Chloride 92 mmol/L (98-107); Creatinine, Serum 0.69 mg/dL (0.55-1.02); EST Glomerular Filtration Rate 95 mL/min (>60); Est Glom Filt Rate - Afr Amer 115 mL/min (>60); Estimated Creatinine Clearance 83.29 ml/min; Globulin 4.9 g/dL (2.2-4.2); Glucose 102 mg/dL (74-106); Lipase 32 U/L (73-393); Potassium 3.2 mmol/L (3.5-5.1); Protein, Total 6.7 g/dL (6.4-8.2); Sodium Level 132 mmol/L (136-145)
[2021-12-18 22:49] LABS: Bacteria 1+ /hpf (None Seen); Squamous Epithelial Cells - UA 25-50 SEEN /hpf (5-10)
[2021-12-18 22:50] LABS: Calcium Oxalate Crystals Ur 2+ /hpf (<or=2+)
[2021-12-18 23:20] VITALS: BP 116/74; PULSE 78; RESP 17; TEMP 36.6; O2SAT 98
[2021-12-19] MEDS: HYDROmorphone 1 MG/ML Syringe IV (00:23)
[2021-12-19 00:25] VITALS: BP 115/78; PULSE 92; RESP 14; TEMP 36.8; O2SAT 95
[2021-12-19 00:52] VITALS: BP 121/79; PULSE 94; RESP 14; O2SAT 97
== END 2021-12-19 00:55 | disposition home or self-care (01) ==
PROVIDERS: Emergency Provider Emergency Medicine; Visit Provider Emergency Medicine
DX: R11.2 Nausea with vomiting, unspecified (principal); C18.9 Malignant neoplasm of colon, unspecified; E66.01 Morbid (severe) obesity due to excess calories; E86.0 Dehydration; F41.9 Anxiety disorder, unspecified; F32.A Depression, unspecified; Z86.718 Personal history of other venous thrombosis and embolism; K21.9 Gastro-esophageal reflux disease without esophagitis; Z79.01 Long term (current) use of anticoagulants; Z79.899 Other long term (current) drug therapy; Z87.891 Personal history of nicotine dependence; Z86.711 Personal history of pulmonary embolism
CPT/HCPCS: 36591; 74177; 80053; 81001; 83690; 85025; 93005; 96361; 96374; 96375; 96376; 99285; J7030; Q9967; A4216

== ENCOUNTER 2021-12-20 08:53 | Inpatient (IN) | payer OTHER, SELFPAY ==
[2021-12-20] VITALS (11 sets, daily range): BP systolic 117–152; BP diastolic 78–92; PULSE 84–123; RESP 14–18; TEMP 36.6–37.2; O2SAT 94–97; BMI 32.2; BMI 33.0
--- NOTE | 2021-12-20 09:14 | CT_ITS ---
STUDY: CT ABDOMEN AND PELVIS WITH CONTRAST REASON FOR EXAM: Female, 51 years old. 5 day history of constipation and abdominal pain. The patient has history of stage IV colon cancer. Recent chemotherapy. RADIATION DOSAGE (If Supplied By Facility): CTDIvol = ( 16.86 ) mGy, DLP = ( 1239.85 ) mGycm TECHNIQUE: Transaxial images were obtained from the dome of the diaphragm to the symphysis pubis without oral contrast. IV 100mL Isovue-300 was administered. Sagittal and coronal images were reconstructed. Individualized dose optimization techniques were used for this CT. COMPARISON: Comparison is made with prior study dated 12/18/2021. FINDINGS: Left pleural effusion with left basilar atelectasis and/or infiltrate. Tiny right pleural effusion with right basilar atelectasis. And dual-chamber pacemaker is seen. There is decreased attenuation of the liver consistent with steatosis. Mild hepatomegaly. Normal gallbladder and extrahepatic biliary system. Normal spleen. Normal pancreas. There is a 1.5 cm heterogeneously enhancing mass in the crux of the left adrenal gland. This is unchanged. Normal right kidney. Normal left kidney. The second portion of the duodenum is fluid distended. The third portion of the duodenum is decompressed. Small bowel loops measure upper limits of normal. There is diffuse circumferential thickening and narrowing of the cecum and ascending colon. There is evidence of thickening of the transverse colon although it is not adequately distended. Increased markings are seen in the root of the mesentery as well as in the omentum. Omental metastasis should be ruled out. Small amount of free fluid is seen along the greater curvature of the stomach although this has improved as compared to prior study. There is diffuse atherosclerotic calcification of the abdominal aorta, without a demonstrated aneurysm. Normal inferior vena cava. Normal retroperitoneum. Normal urinary bladder. There is evidence of bilateral tubal ligation clips. There is a 3.1 cm x 2.6 cm cyst in the left ovary. Normal abdominal wall. Stable sclerotic metastasis of the axial and appendicular skeletons. CT/Abdomen/Pelvis W IV Cont ONLY IMPRESSION: Progressive thickening of the ascending colon. Findings suggestive of omental metastasis. Stable left adrenal enhancing nodule. Diffuse fatty infiltration of the liver. Stable sclerotic metastasis. Left pleural effusion with left basilar infiltration and/or atelectasis and mild right basilar atelectasis. Electronically Signed: Carlitos Roberts MD at 11:06 EDT ,
--- NOTE | 2021-12-20 09:14 | EKG12_ITS ---
Test Reason : SICK Blood Pressure : / mmHG Vent. Rate : 098 BPM Atrial Rate : 098 BPM P-R Int : 150 ms QRS Dur : 084 ms QT Int : 356 ms P-R-T Axes : 013 027 032 degrees QTc Int : 454 ms Normal sinus rhythm Nonspecific ST and T wave abnormality Abnormal ECG Confirmed by MARKO TRENT, COLT ([id number]), greeting card editor EDILMA ANDRE ([id number]) on 12/21/2021 12:16:13 PM Referred By: CONY Confirmed By:COLT ZHU MD
--- NOTE | 2021-12-20 09:27 | EDS_ITS ---
HPI HPI - GI History of Present Illness Chief Complaint: Constipation Narrative Narrative: 51-year-old female with stage IV colon cancer currently on chemotherapy with Dr. Owens. Patient states she has not had a bowel movement in 5 days. She is not passing flatus. She has decreased urine output and decreased p.o. intake. She complains of abdominal pain which is fairly diffuse but worse in the left upper quadrant. She has not had a fever. She had an appointment for chemotherapy today but did not go because she feels ill. [facility]SH [facility] Medical History Anxiety and depression At high risk for deep venous thrombosis Back pain Chronic cough Colon cancer Dehydration DVT (deep venous thrombosis) Elevated serum creatinine Encounter for adjustment and management of vascular access device Encounter for chemotherapy management Former tobacco use GERD (gastroesophageal reflux disease) Heart burn History of steroid therapy Hypokalemia Hypomagnesemia Left leg pain Malignant ascites Migraine headache Morbid obesity Nausea & vomiting Oral candidiasis Post-menopausal Shortness of breath on exertion Wears dentures Wears glasses Weight loss Home Medications buspirone 10 mg PO BID 06/13/21 [History Last Taken 06/11/21] escitalopram oxalate 20 mg PO DAILY 06/13/21 [History Last Taken 06/11/21] apixaban [Eliquis] 5 mg PO BID #49 tab 07/28/21 [Rx Last Taken Unknown] lidocaine-prilocaine 2.5 %-2.5 % topical cream 1 applic TOPICAL ONCE PRN 30 Days #30 g 07/28/21 [Rx Last Taken Unknown] prochlorperazine maleate 5 mg tablet 5 mg PO TID PRN #30 tab 08/01/21 [Rx Last Taken Unknown] sennosides 8.6 mg tablet 8.6 mg PO BID #60 tab 08/01/21 [Rx Last Taken Unknown] omeprazole 40 mg capsule,delayed release 40 mg PO DAILY #90 cap 10/07/21 [Rx Last Taken Unknown] hydrocodone-acetaminophen 5-325mg 5mg-325mg 1 tab PO Q6H PRN 10/11/21 [History Last Taken Unknown] methadone 5 mg tablet 5 mg PO tab 10/25/21 [History Last Taken Unknown] dicyclomine 20 mg tablet 20 mg PO BID #60 tab 11/04/21 [Rx Last Taken Unknown] ondansetron 8 mg disintegrating tablet 8 mg PO Q8H PRN #30 tab 11/04/21 [Rx Last Taken Unknown] scopolamine base 1 mg over 3 days transdermal patch 1 patch TRANSDERMAL Q3D PRN #10 ea 11/04/21 [Rx Last Taken Unknown] haloperidol 1 mg PO BID #4 tab 12/19/21 [Rx Last Taken Unknown] Allergy/AdvReac Type Severity Reaction Status Date / Time No Known Allergies Allergy Verified 12/20/21 08:55 Family History Father Diabetes Mother Hypertension Brother Hypertension Surgical History History of cholecystectomy (~06/2021) S/P section S/P rotator cuff repair Social History household members: family Smoking Status: Former smoker how long ago did patient quit smoking: Quit 2 years prior, smoked 1/2 ppd since she was a teenager until quitting. alcohol intake: never substance use type: does not use ROS ROS ED Constitutional Constitutional ED: Denies chills or fever(s) ENT ENT ED: Denies rhinorrhea or sore throat Cardiovascular Cardiovascular: Denies chest pain or palpitations Respiratory/Chest Respiratory/Chest: Denies cough or dyspnea Gastrointestinal Gastrointestinal: Reports abdominal pain, constipation and nausea Genitourinary Genitourinary ED: Reports other Details: Decreased urine output ; Denies dysuria Musculoskeletal Musculoskeletal: Reports myalgias Integumentary Denies rash Neurologic Neurologic: Denies headache(s) or paresthesias Psychiatric Psychiatric: Denies anxiety EXAM Physical Exam Const Vital Signs: 12/20/21 08:55 12/20/21 09:00 12/20/21 09:40 Temperature 98.9 F 98.9 F 98.2 F Temperature Source Temporal Temporal Oral Pulse Rate 123 H 123 H Respiratory Rate 14 14 Blood Pressure 152/92 H 152/92 H Blood Pressure Mean 112 112 Pulse Ox 97 97 Oxygen Delivery Method Room Air Room Air 12/20/21 09:48 12/20/21 10:19 12/20/21 10:21 Temperature 98.2 F 98.2 F Temperature Source Oral Oral Pulse Rate 104 H 92 Respiratory Rate 16 15 Blood Pressure 132/84 H 127/87 H Blood Pressure Mean 100 100 Pulse Ox 97 95 Oxygen Delivery Method Room Air Room Air 12/20/21 12:02 Temperature 98 F Temperature Source Oral Pulse Rate 84 Respiratory Rate 18 Blood Pressure 117/78 Blood Pressure Mean 91 Pulse Ox 96 Oxygen Delivery Method Room Air Positive obese General Appearance ED: NAD; Negative for pallor Nutritional Appearance: obese HEENT Reports dry mucous membranes normocephalic and atraumatic Mouth ED: Yes dry mucous membranes Mouth: dry mucous membranes Eyes PERRL and EOMs intact bilaterally General Eye ED: Negative for pale conjunctiva or scleral icterus Resp normal respiratory effort Cardio regular rate Rate: tachycardic GI non-distended Auscultation: hypoactive bowel sounds Palpation: tender LLQ and LUQ Neuro CN's II-XII intact bilaterally Sensorium / Orientation: alert, oriented to person, oriented to place and oriented to time Psych mental status grossly normal Skin General Skin Exam: Negative for jaundice or pallor MDM MDM MDM Narrative Medical decision making narrative: Patient tachycardic on arrival and I did obtain an EKG which showed normal sinus rhythm with ventricular rate of 98 bpm without sign of ischemic change or dysrhythmia. Patient is given IV fluids, morphine, Phenergan. I obtained blood work and her CBC shows no leukocytosis. Hemoglobin is stable at 10.5. No reported black or bloody stools, and the patient next is reporting no bowel movement for 5 days. Platelets within normal limits. Renal function is within normal limits. Magnesium is a low at 1.2 and this is replaced IV. Potassium is also low at 3.1. Lactic acid is 1.1. High- sensitivity troponin is 3. Chest x-ray my interpretation shows a worsening left pleural effusion with trace right pleural effusion. Radiologist agree will obtain CT scan abdomen pelvis to ensure there is no obstruction. There is worsening bowel thickening throughout the ascending and transverse colon. There is worsening left-sided pleural effusion right pleural effusion. Omental metastasis present. Discussed the case with Dr. Mcguire who does not see a cherise obstruction on CT. She recommended giving an enema. Soapsuds enema was given and patient only had a minimal bowel movement. I did have concern for possible mechanical obstruction due to history of colon cancer. I discussed the case with Dr. Morfin as he recently saw her and was planning on follow-up colonoscopy. At this point we both felt she need to be admitted for monitoring and possibly endoscopy to make sure that she does not have obstruction since she has not had a bowel movement 5 days. Patient was amenable to this. Patient discussed with hospitalist for admission. Impression: 1. Metastatic colon cancer 2. Left-sided pleural effusion 3. Right-sided pleural effusion 4. Hypokalemia 5. Hypomagnesemia 6. Abdominal pain 7. Constipation Lab Data Attestation: I reviewed the patient's lab results. Labs: Laboratory Results - last 24 hr 12/20/21 12/20/21 12/20/21 09:40 09:40 09:40 WBC 8.3 RBC 3.64 L Hgb 10.5 L Hct 31.5 L MCV 86.5 MCH 28.8 MCHC 33.3 RDW Std Deviation 48.7 H RDW Coeff of Mohsen 15.4 H Plt Count 236 MPV 9.6 Immature Gran % (Auto) 1.100 H Neut % (Auto) 81.4 H Lymph % (Auto) 6.8 L Stokes % (Auto) 9.9 Eos % (Auto) 0.6 Baso % (Auto) 0.2 Absolute Neuts (auto) 6.7 Absolute Lymphs (auto) 0.56 L Nucleated RBC % 0 Differential Comment COMMENT Sodium 130 L Potassium 3.1 L Chloride 90 L Carbon Dioxide 33.0 H Anion Gap 7 BUN 10 Creatinine 0.60 Estim Creat Clear Calc 95.79 Est GFR (MDRD) Af Amer 136 Est GFR (MDRD) Non-Af 112 BUN/Creatinine Ratio 16.7 Glucose 98 Lactic Acid 1.1 Calcium 7.8 L Magnesium 1.2 L Total Bilirubin 0.20 AST 16 ALT 9 L Alkaline Phosphatase 160 H Troponin I High Sens 3 Total Protein 6.2 L Albumin 1.7 L Globulin 4.5 H Albumin/Globulin Ratio 0.4 L Urine Color Urine Clarity Urine pH Ur Specific Milburn Urine Protein Urine Glucose (UA) Urine Ketones Urine Occult Blood Urine Nitrite Urine Bilirubin Urine Urobilinogen Ur Leukocyte Esterase Urine RBC Urine WBC Ur Squamous Epith Cells Urine Bacteria Urine Mucus 12/20/21 12:05 WBC RBC Hgb Hct MCV MCH MCHC RDW Std Deviation RDW Coeff of Mohsen Plt Count MPV Immature Gran % (Auto) Neut % (Auto) Lymph % (Auto) Stokes % (Auto) Eos % (Auto) Baso % (Auto) Absolute Neuts (auto) Absolute Lymphs (auto) Nucleated RBC % Differential Comment Sodium Potassium Chloride Carbon Dioxide Anion Gap BUN Creatinine Estim Creat Clear Calc Est GFR (MDRD) Af Amer Est GFR (MDRD) Non-Af BUN/Creatinine Ratio Glucose Lactic Acid Calcium Magnesium Total Bilirubin AST ALT Alkaline Phosphatase Troponin I High Sens Total Protein Albumin Globulin Albumin/Globulin Ratio Urine Color Yellow Urine Clarity Sl. Cloudy Urine pH 7.0 Ur Specific Milburn 1.005 Urine Protein 30 H Urine Glucose (UA) Normal Urine Ketones Negative Urine Occult Blood 10 H Urine Nitrite Negative Urine Bilirubin Negative Urine Urobilinogen Normal Ur Leukocyte Esterase 25 H Urine RBC 0 SEEN Urine WBC 0-5 SEEN Ur Squamous Epith Cells 5-10 SEEN Urine Bacteria 1+ Urine Mucus 0 SEEN Radiography Diagnostic Testing: Clinical Impression(s) from Imaging Studies Abdomen/Pelvis CT 12/20/21 09:14 IMPRESSION: Progressive thickening of the ascending colon. Findings suggestive of omental metastasis. Stable left adrenal enhancing nodule. Diffuse fatty infiltration of the liver. Stable sclerotic metastasis. Left pleural effusion with left basilar infiltration and/or atelectasis and mild right basilar atelectasis. Electronically Signed: Carlitos Roberts MD at 11:06 EDT , Chest X-Ray 12/20/21 10:00 IMPRESSION: Increasing left pleural effusion with left basilar infiltration and/or atelectasis. Electronically Signed: Carlitos Roberts MD at 10:32 EDT , Discharge Plan Triage Chief Complaint: Constipation ED Provider: Alberto Carrillo Dx/Rx/DC Orders Prescriptions: No Action prochlorperazine maleate [Compazine] 5 mg tablet 5 mg PO TID PRN (Reason: nausea and vomiting) Qty: 30 RF: 0 omeprazole 40 mg capsule,delayed release(DR/EC) 40 mg PO DAILY Qty: 90 RF: 3 hydrocodone-acetaminophen 5-325 mg tablet 1 tab PO Q6H PRN (Reason: Pain) RF: 0 methadone 5 mg tablet 5 mg PO BID RF: 0 buspirone 10 mg tablet 10 mg PO BID RF: 0 escitalopram oxalate 20 mg tablet 20 mg PO DAILY RF: 0 Eliquis 5 mg tablet 5 mg PO BID Qty: 49 RF: 0 haloperidol 1 mg tablet 1 mg PO BID Qty: 4 RF: 0 lidocaine-prilocaine 2.5-2.5 % cream 1 applic topical ONCE PRN (Reason: port access) 30 Days Qty: 30 RF: 2 sennosides [Senna Laxative] 8.6 mg tablet 8.6 mg PO BID Qty: 60 RF: 2 ondansetron 8 mg tablet,disintegrating 8 mg PO Q8H PRN (Reason: nausea and vomiting) Qty: 30 RF: 2 dicyclomine 20 mg tablet 20 mg PO BID Qty: 60 RF: 2 scopolamine base 1 mg over 3 days patch 3 day 1 patch transdermal Q3D PRN (Reason: nausea and vomiting) Qty: 10 RF: 2 [facility]
[2021-12-20] MEDS: proMETHazine 25 MG/ML Syringe 12.5 MG IM (09:43)
[2021-12-20] MEDS: Morphine 4 MG/ML Syringe IV (09:43)
[2021-12-20] MEDS: 0.9% Normal Saline 1,000 ML 999 ML IV (09:43)
[2021-12-20 09:54] LABS: Absolute Lymphocyte Count 0.56 X10^3/uL (0.83-4.51); Absolute Neutrophil Count 6.7 X10^3/uL (2.0-7.7); Basophil# 0.02 X10^3/uL; Basophil% 0.2 % (0-1); Eosinophil# 0.05 X10^3/uL; Eosinophils% 0.6 % (0-5); Hematocrit 31.5 % (37-47); Hemoglobin 10.5 g/dL (12.0-15.0); Lymphocyte # 0.56 X10^3/ul (0.83-4.51); Lymphocyte % 6.8 % (19-41); Mean Corp Hgb Conc 33.3 g/dL (32-36); Mean Corpuscular Hgb 28.8 pg (27.0-32.0); Mean Corpuscular Volume 86.5 fL (81-99); Mean Platelet Vol. 9.6 fl (6.2-12.0); Monocyte# 0.82 X10^3/uL; Monocyte% 9.9 % (0-10); NRBC Flagged by Analyzer 0 % (0-5); Neutrophil # 6.71 X10^3/uL (2.7-7.7); Neutrophil % 81.4 % (47-70); POSITIVE DIFFERENTIAL YES; Platelet Count 236 K/mm3 (150-450); RBC Distribution Width CV 15.4 % (11.6-14.6); RBC Distribution Width SD 48.7 fl (35.1-43.9); Red Blood Count 3.64 M/mm3 (4.2-5.4); White Blood Count 8.3 K/mm3 (4.4-11.0)
--- NOTE | 2021-12-20 10:00 | RAD_ITS ---
STUDY: X-RAY CHEST REASON FOR EXAM: Female, 51 years old. Weakness TECHNIQUE: Single AP portable view of the chest. COMPARISON: Comparison is made with prior study dated 12/09/2021. FINDINGS: A right-sided portacatheter is seen with the tip at the junction of the superior vena cava and right atrium. EKG electrodes are seen. Increasing left pleural effusion with left basilar infiltration and/or atelectasis. Stable minimal increased markings in the lateral aspect of the right upper lobe. Normal size heart. Normal mediastinum and parisa. Normal visualized pulmonary arteries. Normal visualized aortic arch and descending thoracic aorta. Normal visualized thoracic spine. Normal visualized ribs, clavicles, and shoulders. There is no demonstrated abnormality of the visualized soft tissue structures of the upper abdomen. RAD/Chest 1 View (Portable) IMPRESSION: Increasing left pleural effusion with left basilar infiltration and/or atelectasis. Electronically Signed: Carlitos Roberts MD at 10:32 EDT ,
[2021-12-20 10:04] LABS: Differential Indicated SCAN CRITERIA MET
[2021-12-20 10:05] LABS: International Normalized Ratio 1.4
[2021-12-20 10:12] LABS: ALB/GLOB Ratio 0.4 RATIO (0.9-2.4); AST(SGOT) 16 U/L (15-37); Alanine Aminotransfer ALT/SGPT 9 U/L (13-56); Albumin, Serum 1.7 g/dL (3.2-5.0); Alkaline Phosphatase 160 U/L (45-117); Anion Gap 7 (5-15); BUN 10 mg/dL (7-18); BUN/Creat Ratio 16.7 RATIO (10-20); Calcium,Total 7.8 mg/dL (8.5-10.1); Chloride 90 mmol/L (98-107); EST Glomerular Filtration Rate 112 mL/min (>60); Est Glom Filt Rate - Afr Amer 136 mL/min (>60); Estimated Creatinine Clearance 95.79 ml/min; Globulin 4.5 g/dL (2.2-4.2); Glucose 98 mg/dL (74-106); Magnesium 1.2 mg/dL (1.6-2.6); Potassium 3.1 mmol/L (3.5-5.1); Protein, Total 6.2 g/dL (6.4-8.2); Sodium Level 130 mmol/L (136-145); Troponin-I HS 3 pg/mL (3.0-54.0)
[2021-12-20 10:24] LABS: Lactic Acid 1.1 mmol/L (0.4-1.9)
[2021-12-20] MEDS: Magnesium Sulfate 4gm/100mL 4 GM/100 ML IV.SOLN. IV (10:42)
[2021-12-20 12:09] LABS: Mucous, Urine 0 SEEN /hpf (<or=2+); Red Blood Cells-Urine 0 SEEN /hpf (0-5)
[2021-12-20 12:25] LABS: Color, Urine Yellow (Yellow); Glucose, Dipstick Normal (Normal); Ketone-Dipstick Negative (Negative); Leukocyte Esterase-Dipstick 25 /ul (Negative); Nitrite-Dipstick Negative (Negative); Occult Blood-Urine 10 /ul (Negative); Protein-Dipstick 30 mg/dl (Negative); Specific Gravity, Urine 1.005 (1.002-1.030); Urine Bilirubin Dipstick Negative (Negative); Urine Clarity Sl. Cloudy (Clear); Urine Urobilinogen Normal (Normal)
[2021-12-20 12:36] LABS: Bacteria 1+ /hpf (None Seen); Squamous Epithelial Cells - UA 5-10 SEEN /hpf (5-10); White Blood Cells 0-5 SEEN /hpf (0-5)
--- NOTE | 2021-12-20 13:39 | HP.PCM.HOS_ITS ---
Documented by User: Matilde Marks NP, [employer] 12/20/21 13:55 HPI - General HPI Narrative YENY CERON, is a 51 F who presents to the Emergency Room due to abdominal pain, constipation, nausea and vomiting. Patient states she has not had a bowel movement in 5 days. Patient is on chemotherapy due to metastatic colon cancer. She was to have a treatment today however due to worsening abdominal pain, came to the emergency room for evaluation. She states she has not been able to keep food or drink down. Feels weak. Denies other associated symptoms or complaints. She has a past medical history of stage IV colon cancer undergoing chemotherapy, history of DVT/PE on Eliquis, anxiety, depression. Patient states she has had issues with constipation prior and has been following with GI. [facility] Medical History Anxiety and depression At high risk for deep venous thrombosis Back pain Chronic cough Colon cancer Dehydration DVT (deep venous thrombosis) Elevated serum creatinine Encounter for adjustment and management of vascular access device Encounter for chemotherapy management Former tobacco use GERD (gastroesophageal reflux disease) Heart burn History of steroid therapy Hypokalemia Hypomagnesemia Left leg pain Malignant ascites Migraine headache Morbid obesity Nausea & vomiting Oral candidiasis Post-menopausal Shortness of breath on exertion Wears dentures Wears glasses Weight loss Home Medications buspirone 10 mg PO BID 06/13/21 [History Last Taken 12/19/21] escitalopram oxalate 20 mg PO DAILY 06/13/21 [History Last Taken 12/19/21] apixaban [Eliquis] 5 mg PO BID #49 tab 07/28/21 [Rx Last Taken 12/19/21] lidocaine-prilocaine 2.5 %-2.5 % topical cream 1 applic TOPICAL ONCE PRN 30 Days #30 g 07/28/21 [Rx Last Taken Unknown] prochlorperazine maleate 5 mg tablet 5 mg PO TID PRN #30 tab 08/01/21 [Rx Last Taken Unknown] sennosides 8.6 mg tablet 8.6 mg PO BID #60 tab 08/01/21 [Rx Last Taken 12/18/21] omeprazole 40 mg capsule,delayed release 40 mg PO DAILY #90 cap 10/07/21 [Rx Last Taken 12/19/21] hydrocodone-acetaminophen 5-325mg 5mg-325mg 1 tab PO Q6H PRN 10/11/21 [History Last Taken 12/20/21] methadone 5 mg tablet 5 mg PO BID tab 10/25/21 [History Last Taken 12/19/21] dicyclomine 20 mg tablet 20 mg PO BID #60 tab 11/04/21 [Rx Last Taken 12/19/21] ondansetron 8 mg disintegrating tablet 8 mg PO Q8H PRN #30 tab 11/04/21 [Rx Last Taken Unknown] scopolamine base 1 mg over 3 days transdermal patch 1 patch TRANSDERMAL Q3D PRN #10 ea 11/04/21 [Rx Last Taken 12/18/21] haloperidol 1 mg PO BID #4 tab 12/19/21 [Rx Last Taken 12/18/21] Allergy/AdvReac Type Severity Reaction Status Date / Time No Known Allergies Allergy Verified 12/20/21 08:55 Family History Father Diabetes Mother Hypertension Brother Hypertension Surgical History History of cholecystectomy (~06/2021) S/P section S/P rotator cuff repair Social History household members: family Smoking Status: Former smoker how long ago did patient quit smoking: Quit 2 years prior, smoked 1/2 ppd since she was a teenager until quitting. alcohol intake: never substance use type: does not use ROS Constitutional Constitutional: Reports fatigue; Denies change in weight, chills, fever(s) or weakness Cardiovascular Cardiovascular: Denies chest pain, edema, lightheadedness, palpitations or s yncope Respiratory/Chest Respiratory/Chest: Denies cough, dyspnea, productive cough, shortness of breath at rest, shortness of breath with exertion or wheezing Gastrointestinal Gastrointestinal: Reports abdominal pain, constipation, nausea and vomiting; Denies diarrhea Genitourinary Genitourinary: Denies burning urination, difficulty urinating, dysuria, h ematuria, urinary frequency, urinary incontinence or urinary urgency Musculoskeletal Musculoskeletal: Denies back pain, joint pain or muscle weakness Integumentary Integumentary: Denies erythema, lesions, rash or wounds Neurologic Neurologic: Denies abnormal speech, confusion, dizziness, focal weakness, numbness, paresthesias, seizure-like activity or syncope Psychiatric Psychiatric: Reports anxiety and depression Hematologic/Lymphatic Hematologic/Lymphatic: Denies anemia, easy bleeding or easy bruising Allergic/Immunologic Allergic/Immunologic: Denies hives or asthma Vital Signs Vital Signs Vital Signs: 12/20/21 08:55 12/20/21 09:00 12/20/21 09:40 Temperature 98.9 F 98.9 F 98.2 F Temperature Source Temporal Temporal Oral Pulse Rate 123 H 123 H Respiratory Rate 14 14 Blood Pressure 152/92 H 152/92 H Blood Pressure Mean 112 112 Pulse Ox 97 97 Oxygen Delivery Method Room Air Room Air 12/20/21 09:48 12/20/21 10:19 12/20/21 10:21 Temperature 98.2 F 98.2 F Temperature Source Oral Oral Pulse Rate 104 H 92 Respiratory Rate 16 15 Blood Pressure 132/84 H 127/87 H Blood Pressure Mean 100 100 Pulse Ox 97 95 Oxygen Delivery Method Room Air Room Air 12/20/21 12:02 Temperature 98 F Temperature Source Oral Pulse Rate 84 Respiratory Rate 18 Blood Pressure 117/78 Blood Pressure Mean 91 Pulse Ox 96 Oxygen Delivery Method Room Air Weight Weight: 188 lb Body Mass Index (BMI) 32.2 Physical Exam Const alert, oriented x3 and no apparent distress Constitutional Narrative: Appears fatigued, appears older than stated age Orientation / Consciousness: awake, oriented to person, oriented to place and oriented to time HEENT normocephalic Mouth: dry mucous membranes Eyes PERRL, EOMs intact bilaterally and conjunctivae normal Neck no lymphadenopathy Resp normal respiratory effort and clear to auscultation bilaterally Cardio regular rate, regular rhythm and no murmurs Peripheral Pulses: pulses 2+ throughout GI normal to inspection, nondistended, normoactive bowel sounds Inspection: abdominal distention Auscultation: hypoactive bowel sounds Palpation: tender Extremity normal to inspection Skin no rashes or lesions noted Lesions: no lesions Rashes: no rashes Trauma: no lacerations or abrasions Neuro CN's II-XII intact bilaterally, no focal motor deficits, no sensory deficits noted and deep tendon reflexes 2+ bilaterally Psych mental status grossly normal and affect normal Results Lab / Micro Data Result Diagrams: 12/20/21 09:40 12/20/21 09:40 Labs: Laboratory Results - last 24 hr 12/20/21 09:40: WBC 8.3, RBC 3.64 L, Hgb 10.5 L, Hct 31.5 L, MCV 86.5, MCH 28.8, MCHC 33.3, RDW Std Deviation 48.7 H, RDW Coeff of Mohsen 15.4 H, Plt Count 236, MPV 9.6, Immature Gran % (Auto) 1.100 H, Neut % (Auto) 81.4 H, Lymph % (Auto) 6.8 L, [place] % (Auto) 9.9, Eos % (Auto) 0.6, Baso % (Auto) 0.2, Absolute Neuts (auto) 6.7, Absolute Lymphs (auto) 0.56 L, Nucleated RBC % 0, Differential Comment COMMENT 12/20/21 09:40: Sodium 130 L, Potassium 3.1 L, Chloride 90 L, Carbon Dioxide 33.0 H, Anion Gap 7, BUN 10, Creatinine 0.60, Estim Creat Clear Calc 95.79, Est GFR (MDRD) Af Amer 136, Est GFR (MDRD) Non-Af 112, BUN/Creatinine Ratio 16.7, Glucose 98, Calcium 7.8 L, Magnesium 1.2 L, Total Bilirubin 0.20, AST 16, ALT 9 L, Alkaline Phosphatase 160 H, Troponin I High Sens 3, Total Protein 6.2 L, Albumin 1.7 L, Globulin 4.5 H, Albumin/Globulin Ratio 0.4 L 12/20/21 09:40: Lactic Acid 1.1 12/20/21 12:05: Urine Color Yellow, Urine Clarity Sl. Cloudy, Urine pH 7.0, Ur Specific [place] 1.005, Urine Protein 30 H, Urine Glucose (UA) Normal, Urine Ketones Negative, Urine Occult Blood 10 H, Urine Nitrite Negative, Urine Bilirubin Negative, Urine Urobilinogen Normal, Ur Leukocyte Esterase 25 H, Urine RBC 0 SEEN, Urine WBC 0-5 SEEN, Ur Squamous Epith Cells 5-10 SEEN, Urine Bacteria 1+, Urine Mucus 0 SEEN Radiology Impression Abdomen/Pelvis CT 12/20/21 09:14 IMPRESSION: Progressive thickening of the ascending colon. Findings suggestive of omental metastasis. Stable left adrenal enhancing nodule. Diffuse fatty infiltration of the liver. Stable sclerotic metastasis. Left pleural effusion with left basilar infiltration and/or atelectasis and mild right basilar atelectasis. Electronically Signed: Carlitos Roberts MD at 11:06 EDT , Chest X-Ray 12/20/21 10:00 IMPRESSION: Increasing left pleural effusion with left basilar infiltration and/or atelectasis. Electronically Signed: Carlitos Roberts MD at 10:32 EDT , Assessment & Plan Assessment/Plan (1) Abdominal pain: PLAN: 1. Abdominal pain, Obstipation with nausea and vomiting-rule out obstruction. Initiate aggressive bowel regimen. As needed pain regimen. As needed antiemetics. CT abdomen pelvis with progressive thickening of the ascending colon, omental metastasis, stable sclerotic metastasis. GI consult. From prior GI evaluation, patient may require colonoscopy to rule out obstruction. 2. Hypokalemia/hypomagnesia-replace per protocol, trend labs. 3. Stage IV colon cancer-history of malignant pleural effusion and ascites. Follows with Dr. Schwarz. Undergoing chemo. 4. 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 5. Anxiety/depression-on buspirone, escitalopram. DVT prophylaxis-Eliquis This patient was seen by KASIA Hermosillo under the supervision of Dr. Felder. Time spent examining patient, reviewing data and subsequent management of care: 17 minutes Documented by User: Dr. Robert Felder MD 12/20/21 19:03 HPI - General General Date of Admission: 12/20/21 [facility] Medical History Anxiety and depression At high risk for deep venous thrombosis Back pain Chronic cough Colon cancer Dehydration DVT (deep venous thrombosis) Elevated serum creatinine Encounter for adjustment and management of vascular access device Encounter for chemotherapy management Former tobacco use GERD (gastroesophageal reflux disease) Heart burn History of steroid therapy Hypokalemia Hypomagnesemia Left leg pain Malignant ascites Migraine headache Morbid obesity Nausea & vomiting Oral candidiasis Post-menopausal Shortness of breath on exertion Wears dentures Wears glasses Weight loss Home Medications buspirone 10 mg PO BID 06/13/21 [History Last Taken 12/19/21] escitalopram oxalate 20 mg PO DAILY 06/13/21 [History Last Taken 12/19/21] apixaban [Eliquis] 5 mg PO BID #49 tab 07/28/21 [Rx Last Taken 12/19/21] lidocaine-prilocaine 2.5 %-2.5 % topical cream 1 applic TOPICAL ONCE PRN 30 Days #30 g 07/28/21 [Rx Last Taken Unknown] prochlorperazine maleate 5 mg tablet 5 mg PO TID PRN #30 tab 08/01/21 [Rx Last Taken Unknown] sennosides 8.6 mg tablet 8.6 mg PO BID #60 tab 08/01/21 [Rx Last Taken 12/18/21] omeprazole 40 mg capsule,delayed release 40 mg PO DAILY #90 cap 10/07/21 [Rx Last Taken 12/19/21] hydrocodone-acetaminophen 5-325mg 5mg-325mg 1 tab PO Q6H PRN 10/11/21 [History Last Taken 12/20/21] methadone 5 mg tablet 5 mg PO BID tab 10/25/21 [History Last Taken 12/19/21] dicyclomine 20 mg tablet 20 mg PO BID #60 tab 11/04/21 [Rx Last Taken 12/19/21] ondansetron 8 mg disintegrating tablet 8 mg PO Q8H PRN #30 tab 11/04/21 [Rx Last Taken Unknown] scopolamine base 1 mg over 3 days transdermal patch 1 patch TRANSDERMAL Q3D PRN #10 ea 11/04/21 [Rx Last Taken 12/18/21] haloperidol 1 mg PO BID #4 tab 12/19/21 [Rx Last Taken 12/18/21] Allergy/AdvReac Type Severity Reaction Status Date / Time No Known Allergies Allergy Verified 12/20/21 08:55 Family History Father Diabetes Mother Hypertension Brother Hypertension Surgical History History of cholecystectomy (~06/2021) S/P section S/P rotator cuff repair Social History household members: family Smoking Status: Former smoker how long ago did patient quit smoking: Quit 2 years prior, smoked 1/2 ppd since she was a teenager until quitting. alcohol intake: never substance use type: does not use Results Lab / Micro Data Result Diagrams: 12/20/21 09:40 12/20/21 09:40 Charges/Coding Addendum Addendum: Dr. Felder: I personally reviewed the chart and examined the patient, and agree with the above findings. 51-year-old female with stage IV colon cancer presents to the hospital with abdominal pain not having a bowel movement for about 5 days. She does take narcotics at home so this could be causing part of her constipation. CT scan of her abdomen pelvis did not demonstrate any obvious obstruction however gastroenterology was consulted in the ER and they recommended possible colonoscopy for further characterization and evaluation. In the meantime we will put her on aggressive bowel regimen. Also of note she did have some electrolyte derangements with a potassium of 3.1, magnesium of 1.2 and a calcium that was low but corrected appropriately with her albumin. We will monitor her electrolytes and place her on some IV fluids for hydration as well as clear liquid diet. Clinical time spent in all aspects of patient care: 45 minutes Visit Charges OBSV E&M: 30659 Initial observation care L2
[2021-12-20] MEDS: 0.9% Normal Saline 1,000 ML 75 ML IV (15:16)
[2021-12-20] MEDS: Ondansetron 4 MG/2 ML Vial IV (15:37)
[2021-12-20] MEDS: Senna Tablet 1 TABLET PO (15:37)
[2021-12-20] MEDS: Scopolamine 1mg/72hr Patch 1 PATCH TD (15:37)
[2021-12-20] MEDS: 0.9% Saline Lock 10 ML Syringe IV (15:38)
[2021-12-20] MEDS: HYDROcodone Bitartrate/Apap 5/325 Tablet PO (15:48)
--- NOTE | 2021-12-20 17:33 | EX.PCM.CON.G ---
HPI Consult Data Date of Consult: 12/20/21 HPI Narrative HPI Narrative: YENY CERON, is a 51-year-old woman presented with abdominal pain, had colonoscopy on 07/13/2021. She Was found to have congested mucosa and polyps in the cecum extending into the hepatic flexure. Pathology showed invasive adenocarcinoma in cecum, ascending colon and hepatic flexure. She had persistent abdominal pain, CT abdomen on 07/17/2021 showed mesenteric nodules with ascites. Paracentesis was attempted on 07/21/2021 showed malignant cells, favor adenocarcinoma of colonic origin. CEA on 07/19/2021 was 6.3. Was found to have SOB with bilateral pleural effusion. Thoracentesis on 07/27/2021 showed malignant cells, favor adenocarcinoma of colonic origin. She was diagnosed with Colon cancer stage IV(cTx cNx M1c) started chemotherapy with FOLFIRINOX on 07/28/2021. Cycle 2 due 08/10/2021 held due to neutropenia. Given 08/17/21, 5FU bolus and leucovorin omitted with decrease in Irinotecan. Oxaliplatin was decrease with 3rd cycle. Presented to [facility] ED on 09/19/21 with c/o lower rib pain bilat, CTA showed bilat pleural effusions but negative for PE. Given rx for prednisone and Mucinex. Rib pain returned one day after completing course of steroids. CT C/A/P with contrast obtained on 09/22/21 for restaging demonstrated partial response with resolution of R pleural effusion, decrease in L pleural effusion, decrease in ascites and new finding of focal wedge-shaped infiltrate in the peripheral aspect of the lingular segment of the left upper lung. While waiting to review these results with medical oncology, she presented to [facility] ED on 09/25/21 with L sided chest pain and was given rx for Levaquin. Completed Levaquin 09/30/21. She has been having worsening abdominal distention associated with nausea and vomiting. She had biochemical analysis that showed worsening hypokalemia, metabolic alkalosis ,hypoalbuminemia, dehydration and protein calorie malnutrition. She got a CT scan abdomen pelvis that shows: Progressive thickening of the ascending colon. Findings suggestive of omental metastasis. Stable left adrenal enhancing nodule. Diffuse fatty infiltration of the liver. Stable sclerotic metastasis. Left pleural effusion with left basilar infiltration and/or atelectasis and mild right basilar atelectasis. She is still very nauseous. Had previously been on scopolamine patch and she was doing some marijuana brownies for her other nausea at home. However it was making her very lethargic and she was not feeling well. She takes pain medicine every 4-6 hours for her abdominal pain every day on a scheduled basis. She recently underwent a bone scan because of some suspicious lesions that were seen on her ribs. Bone scan did not show any sign of metastatic disease. [facility] Medical History Anxiety and depression At high risk for deep venous thrombosis Back pain Chronic cough Colon cancer Dehydration DVT (deep venous thrombosis) Elevated serum creatinine Encounter for adjustment and management of vascular access device Encounter for chemotherapy management Former tobacco use GERD (gastroesophageal reflux disease) Heart burn History of steroid therapy Hypokalemia Hypomagnesemia Left leg pain Malignant ascites Migraine headache Morbid obesity Nausea & vomiting Oral candidiasis Post-menopausal Shortness of breath on exertion Wears dentures Wears glasses Weight loss Home Medications buspirone 10 mg PO BID 06/13/21 [History Last Taken 12/19/21] escitalopram oxalate 20 mg PO DAILY 06/13/21 [History Last Taken 12/19/21] apixaban [Eliquis] 5 mg PO BID #49 tab 07/28/21 [Rx Last Taken 12/19/21] lidocaine-prilocaine 2.5 %-2.5 % topical cream 1 applic TOPICAL ONCE PRN 30 Days #30 g 07/28/21 [Rx Last Taken Unknown] prochlorperazine maleate 5 mg tablet 5 mg PO TID PRN #30 tab 08/01/21 [Rx Last Taken Unknown] sennosides 8.6 mg tablet 8.6 mg PO BID #60 tab 08/01/21 [Rx Last Taken 12/18/21] omeprazole 40 mg capsule,delayed release 40 mg PO DAILY #90 cap 10/07/21 [Rx Last Taken 12/19/21] hydrocodone-acetaminophen 5-325mg 5mg-325mg 1 tab PO Q6H PRN 10/11/21 [History Last Taken 12/20/21] methadone 5 mg tablet 5 mg PO BID tab 10/25/21 [History Last Taken 12/19/21] dicyclomine 20 mg tablet 20 mg PO BID #60 tab 11/04/21 [Rx Last Taken 12/19/21] ondansetron 8 mg disintegrating tablet 8 mg PO Q8H PRN #30 tab 11/04/21 [Rx Last Taken Unknown] scopolamine base 1 mg over 3 days transdermal patch 1 patch TRANSDERMAL Q3D PRN #10 ea 11/04/21 [Rx Last Taken 12/18/21] haloperidol 1 mg PO BID #4 tab 12/19/21 [Rx Last Taken 12/18/21] Allergy/AdvReac Type Severity Reaction Status Date / Time No Known Allergies Allergy Verified 12/20/21 08:55 Family History Father Diabetes Mother Hypertension Brother Hypertension Surgical History History of cholecystectomy (~06/2021) S/P section S/P rotator cuff repair Social History household members: family Smoking Status: Former smoker how long ago did patient quit smoking: Quit 2 years prior, smoked 1/2 ppd since she was a teenager until quitting. alcohol intake: never substance use type: does not use ROS Gastrointestinal Gastrointestinal: Reports abdominal pain, bloating, change in bowel habits, dry heaves, dyspepsia, early satiety, taste impaired and weight changes Physical Exam Const alert General Appearance: cooperative Orientation / Consciousness: oriented to person HEENT hearing grossly normal bilaterally Head and Scalp: normal to inspection Face and Sinus: face symmetric Nose: external nose normal Mouth: oral and palatal mucosa normal Eyes conjunctivae normal General Eye: normal appearance of both eyes Neck full ROM General: normal visual inspection Lymph Lymphatic: no lymphadenopathy noted Chest inspection of chest normal and palpation of chest normal Chest: symmetrical chest wall rise Resp normal respiratory effort Effort and Inspection: able to speak in complete sentences Cardio regular rate GI non-distended Percussion: normal to percussion Rectal Exam: deferred Neuro Speech: speech normal Gait (Neuro): normal gait Lab / Micro Data Result Diagrams: 12/20/21 09:40 12/20/21 09:40 Labs: Laboratory Results - last 24 hr 12/20/21 09:40: WBC 8.3, RBC 3.64 L, Hgb 10.5 L, Hct 31.5 L, MCV 86.5, MCH 28.8, MCHC 33.3, RDW Std Deviation 48.7 H, RDW Coeff of [place]sen 15.4 H, Plt Count 236, MPV 9.6, Immature Gran % (Auto) 1.100 H, Neut % (Auto) 81.4 H, Lymph % (Auto) 6.8 L, [place] % (Auto) 9.9, Eos % (Auto) 0.6, Baso % (Auto) 0.2, Absolute Neuts (auto) 6.7, Absolute Lymphs (auto) 0.56 L, Nucleated RBC % 0, Differential Comment COMMENT 12/20/21 09:40: PT 16.0 H, INR 1.4, APTT 26.0 12/20/21 09:40: Sodium 130 L, Potassium 3.1 L, Chloride 90 L, Carbon Dioxide 33.0 H, Anion Gap 7, BUN 10, Creatinine 0.60, Estim Creat Clear Calc 95.79, Est GFR (MDRD) Af Amer 136, Est GFR (MDRD) Non-Af 112, BUN/Creatinine Ratio 16.7, Glucose 98, Calcium 7.8 L, Magnesium 1.2 L, Total Bilirubin 0.20, AST 16, ALT 9 L, Alkaline Phosphatase 160 H, Troponin I High Sens 3, Total Protein 6.2 L, Albumin 1.7 L, Globulin 4.5 H, Albumin/Globulin Ratio 0.4 L 12/20/21 09:40: Lactic Acid 1.1 12/20/21 12:05: Urine Color Yellow, Urine Clarity Sl. Cloudy, Urine pH 7.0, Ur Specific [place] 1.005, Urine Protein 30 H, Urine Glucose (UA) Normal, Urine Ketones Negative, Urine Occult Blood 10 H, Urine Nitrite Negative, Urine Bilirubin Negative, Urine Urobilinogen Normal, Ur Leukocyte Esterase 25 H, Urine RBC 0 SEEN, Urine WBC 0-5 SEEN, Ur Squamous Epith Cells 5-10 SEEN, Urine Bacteria 1+, Urine Mucus 0 SEEN Radiology Impression Abdomen/Pelvis CT 12/20/21 09:14 IMPRESSION: Progressive thickening of the ascending colon. Findings suggestive of omental metastasis. Stable left adrenal enhancing nodule. Diffuse fatty infiltration of the liver. Stable sclerotic metastasis. Left pleural effusion with left basilar infiltration and/or atelectasis and mild right basilar atelectasis. Electronically Signed: Carlitos Roberts MD at 11:06 EDT , Chest X-Ray 12/20/21 10:00 IMPRESSION: Increasing left pleural effusion with left basilar infiltration and/or atelectasis. Electronically Signed: Carlitos Roberts MD at 10:32 EDT , Assessment & Plan Assessment/Plan (1) Personal history of colon cancer, stage IV: PLAN: Her CT scan does look similar. However she has having progressive peritoneal carcinomatosis which I think is contributing to a lot of her symptoms. She is losing a lot of weight and has significant hypoalbuminemia since the last time I saw her. She did not complete chemotherapy today due to her constipation and inability to eat. I told her that I would perform colonoscopy if she has enemas today so we can look at the colon cancer to see if it is obstructing at all. If it is obstructing then she may be amenable to stent placement in the future. (2) Nausea & vomiting: PLAN: Secondary to narcotic bowel, narcotic induced gastroparesis and peritoneal carcinomatosis with a large colon cancer in the right side of the colon. I will put her on IV Reglan. Try to limit pain medicine as much as possible with benzodiazepines. Because she is not able to keep anything down we will also perform an upper endoscopy upper GI tract tomorrow. (3) Constipation: PLAN: Patient presented 30 minutes apart. Charges/Coding Visit Charges Inpatient E&M: 68506 Init Hosp L3
[2021-12-20] MEDS: Fleet Enema 2 ML RC (18:51)
--- NOTE | 2021-12-20 20:38 | NURSING ---
pt had not taken all ordered enema yet, pt refusing @ this time stating my butt still hurts
[2021-12-20] MEDS: busPIRone 5 MG Tablet 10 MG PO (20:56)
[2021-12-21] VITALS (17 sets, daily range): BP systolic 117–145; BP diastolic 75–100; PULSE 81–115; RESP 12–20; TEMP 36.3–37.3; O2SAT 93–99
[2021-12-21] MEDS: 0.9% Normal Saline 1,000 ML 75 ML IV ×2 (03:40→14:21)
[2021-12-21 06:18] LABS: Absolute Lymphocyte Count 0.67 X10^3/uL (0.83-4.51); Absolute Neutrophil Count 6.5 X10^3/uL (2.0-7.7); Basophil# 0.04 X10^3/uL; Basophil% 0.5 % (0-1); Eosinophil# 0.13 X10^3/uL; Eosinophils% 1.6 % (0-5); Hematocrit 32.3 % (37-47); Hemoglobin 10.9 g/dL (12.0-15.0); Lymphocyte # 0.67 X10^3/ul (0.83-4.51); Lymphocyte % 8.1 % (19-41); Mean Corp Hgb Conc 33.7 g/dL (32-36); Mean Corpuscular Hgb 29.3 pg (27.0-32.0); Mean Corpuscular Volume 86.8 fL (81-99); Mean Platelet Vol. 9.3 fl (6.2-12.0); Monocyte# 0.85 X10^3/uL; Monocyte% 10.2 % (0-10); NRBC Flagged by Analyzer 0 % (0-5); Neutrophil # 6.53 X10^3/uL (2.7-7.7); Neutrophil % 78.6 % (47-70); Platelet Count 233 K/mm3 (150-450); RBC Distribution Width CV 15.6 % (11.6-14.6); RBC Distribution Width SD 49.4 fl (35.1-43.9); Red Blood Count 3.72 M/mm3 (4.2-5.4); White Blood Count 8.3 K/mm3 (4.4-11.0)
--- NOTE | 2021-12-21 06:38 | NURSING ---
CORTEX TO DR LITTLE THIS AM MAKING HIM AWARE OF PT ONLY TOLERATING MINIMAL AMOUNT OF 1ST ENEMA & REFUSED 2ND ENEMA LAST EVENING. PT HAD RESULTS OF A FEW PIECES OF HARD STOOL. NO NEW ORDERS.
[2021-12-21 06:47] LABS: Anion Gap 9 (5-15); BUN 8 mg/dL (7-18); BUN/Creat Ratio 15.8 RATIO (10-20); Calcium,Total 7.8 mg/dL (8.5-10.1); Chloride 94 mmol/L (98-107); Creatinine, Serum 0.51 mg/dL (0.55-1.02); EST Glomerular Filtration Rate 136 mL/min (>60); Est Glom Filt Rate - Afr Amer 165 mL/min (>60); Estimated Creatinine Clearance 112.69 ml/min; Glucose 85 mg/dL (74-106); Magnesium 2.1 mg/dL (1.6-2.6); Phosphorus 3.3 mg/dL (2.5-4.9); Potassium 3.2 mmol/L (3.5-5.1); Sodium Level 131 mmol/L (136-145)
[2021-12-21] MEDS: 0.9% Saline Lock 10 ML Syringe IV (08:25)
[2021-12-21] MEDS: Ondansetron 4 MG/2 ML Vial IV ×2 (08:25→21:11)
--- NOTE | 2021-12-21 11:21 | PN.HOSP_ITS ---
Documented by User: Matilde Marks NP, COORDINATOR OF EVALUATION-C 12/21/21 11:34 Subjective Subjective Patient seen and examined. Reports she had large bowel movement last evening. Abdominal pain, nausea and vomiting improved. States she still feels full in her upper abdominal area. Objective Data Objective Data Vital Signs: Vital Signs Temp Pulse Resp BP Pulse Ox 98.8 F 90 12 130/87 H 96 12/21/21 07:24 12/21/21 07:24 12/21/21 07:24 12/21/21 07:24 12/21/21 07:24 Oxygen Delivery Method Room Air Weight: 192 lb 3.889 oz Body Mass Index (BMI) 33.0 Intake & Output: Intake and Output for Last 24 Hours 12/19/21 12/20/21 12/21/21 23:59 23:59 23:59 Intake Total 1220 / 1220 930 / 930 Balance 1220 / 1220 930 / 930 Lab / Micro Data Result Diagrams: 12/21/21 06:05 12/21/21 06:05 Labs: Laboratory Results - last 24 hr 12/20/21 09:40: PT 16.0 H, INR 1.4, APTT 26.0 12/20/21 12:05: Urine Color Yellow, Urine Clarity Sl. Cloudy, Urine pH 7.0, Ur Specific [place] 1.005, Urine Protein 30 H, Urine Glucose (UA) Normal, Urine Ketones Negative, Urine Occult Blood 10 H, Urine Nitrite Negative, Urine Bilirubin Negative, Urine Urobilinogen Normal, Ur Leukocyte Esterase 25 H, Urine RBC 0 SEEN, Urine WBC 0-5 SEEN, Ur Squamous Epith Cells 5-10 SEEN, Urine Bacteria 1+, Urine Mucus 0 SEEN 12/21/21 06:05: WBC 8.3, RBC 3.72 L, Hgb 10.9 L, Hct 32.3 L, MCV 86.8, MCH 29.3, MCHC 33.7, RDW Std Deviation 49.4 H, RDW Coeff of Mohsen 15.6 H, Plt Count 233, MPV 9.3, Immature Gran % (Auto) 1.000 H, Neut % (Auto) 78.6 H, Lymph % (Auto) 8.1 L, Mckean % (Auto) 10.2 H, Eos % (Auto) 1.6, Baso % (Auto) 0.5, Absolute Neuts (auto) 6.5, Absolute Lymphs (auto) 0.67 L, Nucleated RBC % 0 12/21/21 06:05: Sodium 131 L, Potassium 3.2 L, Chloride 94 L, Carbon Dioxide 28.0, Anion Gap 9, BUN 8, Creatinine 0.51 L, Estim Creat Clear Calc 112.69, Est GFR (MDRD) Af Amer 165, Est GFR (MDRD) Non-Af 136, BUN/Creatinine Ratio 15.8, Glucose 85, Calcium 7.8 L, Phosphorus 3.3, Magnesium 2.1 Micro: Microbiology 12/20/21 12:05 Urine, Clean Catch Urine Culture - Final Mixed Gram Positive Organisms Physical Exam Const alert, oriented x3 and no apparent distress Orientation / Consciousness: awake, oriented to person, oriented to place and oriented to time HEENT normocephalic Mouth: dry mucous membranes Eyes PERRL, EOMs intact bilaterally and conjunctivae normal Neck no lymphadenopathy Resp clear to auscultation bilaterally Auscultation: diminished lung sounds Cardio regular rate, regular rhythm and no murmurs Peripheral Pulses: pulses 2+ throughout GI normal to inspection, nondistended, normoactive bowel sounds Inspection: abdominal distention Palpation: tender Extremity normal to inspection Skin no rashes or lesions noted Lesions: no lesions Rashes: no rashes Trauma: no lacerations or abrasions Neuro CN's II-XII intact bilaterally, no focal motor deficits, no sensory deficits noted and deep tendon reflexes 2+ bilaterally Psych Mood & Affect: flat affect Assessment & Plan Assessment/Plan (1) Constipation: PLAN: 1. Abdominal pain, Obstipation with nausea and vomiting-rule out mechanical obstruction. Continue bowel prep per surgery. As needed pain regimen. As needed antiemetics. CT abdomen pelvis with progressive thickening of the ascending colon, omental metastasis, stable sclerotic metastasis. GI consulted. To undergo colonoscopy. Pending findings, may require stent placement due to progressive peritoneal carcinomatosis. 2. Hypokalemia/hypomagnesia-replace per protocol, trend labs. 3. Stage IV colon cancer-history of malignant pleural effusion and ascites. Follows with Dr. Schwarz. Undergoing chemo. 4. 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 5. Anxiety/depression-on buspirone, escitalopram. DVT prophylaxis-Eliquis This patient was seen by KASIA Hermosillo under the supervision of Dr. Mason. Time spent examining patient, reviewing data and subsequent management of care: 12 minutes Documented by User: Dr. Kev Mason, 12/21/21 12:34 Subjective Subjective still with abdominal pain. Had some BM. +Nausea. Objective Data Lab / Micro Data Result Diagrams: 12/21/21 06:05 12/21/21 06:05 Physical Exam Const alert and no apparent distress Resp normal respiratory effort, no retractions, no use of accessory muscles and clear to auscultation bilaterally Cardio regular rate, regular rhythm, S1 normal heart sound and S2 normal heart sound GI normal to inspection, nondistended, normoactive bowel sounds and soft to palpation GI Narrative: distended. tender Assessment & Plan Assessment/Plan (1) Constipation: PLAN: Patient seen and examined independently. Data and vitals reviewed. I agree with the above note by the nurse practitioner. 1. abdominal pain ongoing endoscopy today 2/2 constipation, omental mets 2. Hypokalemia ongoing replace mag normal 3. hypomagnesemia improved 4. stage IV colon cancer follow up with Dr. Schwarz Greater than 20 minutes reviewing data, discussing and examing patient Charges/Coding Visit Charges Inpatient E&M: 57793 Subs Hosp L2
--- NOTE | 2021-12-21 12:22 | OP.EGD_ITS ---
Patient Name: Mónica James Procedure Date: 12/21/2021 11:25 AM Date of : 1970 Age: 51 Procedure: Upper GI endoscopy Indications: Epigastric abdominal pain Providers: Cyril Morfin DO Medicines: See the Anesthesia note for documentation of the administered medications Patient Profile: This is a 51 year old female. Refer to note in patient chart for documentation of history and physical. Patient has symptoms of acute abdominal distention. Complications: No immediate complications. Procedure: Pre-Anesthesia Assessment: - Prior to the procedure, a History and Physical was performed, and patient medications and allergies were reviewed. The patient is competent. The risks and benefits of the procedure and the sedation options and risks were discussed with the patient. All questions were answered and informed consent was obtained. Patient identification and proposed procedure were verified by the physician in the pre-procedure area. Mental Status Examination: alert and oriented. Airway Examination: normal oropharyngeal airway and neck mobility. Respiratory Examination: clear to auscultation. CV Examination: normal. ASA Grade Assessment: II - A patient with mild systemic disease. After reviewing the risks and benefits, the patient was deemed in satisfactory condition to undergo the procedure. The anesthesia plan was to use moderate sedation / analgesia (conscious sedation). Immediately prior to administration of medications, the patient was re-assessed for adequacy to receive sedatives. The heart rate, respiratory rate, oxygen saturations, blood pressure, adequacy of pulmonary ventilation, and response to care were monitored throughout the procedure. The physical status of the patient was re-assessed after the procedure. After obtaining informed consent, the endoscope was passed under direct vision. Throughout the procedure, the patient's blood pressure, pulse, and oxygen saturations were monitored continuously. The colonoscope was introduced through the mouth, and advanced to the third part of duodenum. The upper GI endoscopy was accomplished without difficulty. The patient tolerated the procedure well. Moderate Sedation: Moderate (conscious) sedation was administered by the endoscopy nurse and supervised by the endoscopist. The patient's oxygen saturation, heart rate, blood pressure and response to care were monitored. Total physician intraservice time was 15 minutes. Scope In: 12:01:15 PM Scope Out: 12:13:50 PM Total Procedure Duration Time 0 hours 12 minutes 35 seconds Findings: LA Grade C (one or more mucosal breaks continuous between tops of 2 or more mucosal folds, less than 75% circumference) esophagitis was found 33 to 39 cm from the incisors. Excessive fluid was found in the stomach. A 14 Fr nasogastric tube was placed through the nares into the esophagus. Under endoscopic guidance, the tube was advanced into the stomach. Placement was confirmed by scope visualization. 700 mL of bilious fluid was removed from the patient's stomach. No gross lesions were noted in the second portion of the duodenum. Impression: - LA Grade C reflux esophagitis. - Excessive gastric fluid. - No gross lesions in the second portion of the duodenum. - Feeding tube placement was successfully performed. - No specimens collected. Recommendation: - [facility] care. - Clear liquid diet. - Continue present medications. Procedure Code(s): --- Professional --- 04809, Esophagogastroduodenoscopy, flexible, transoral; with insertion of intraluminal tube or catheter G0500, Moderate sedation services provided by the same physician or other qualified health date night caregiver performing a gastrointestinal endoscopic service that sedation supports, requiring the presence of an independent trained observer to assist in the monitoring of the patient's level of consciousness and physiological status; initial 15 minutes of intra-service time; patient age 5 years or older (additional time may be reported with 20113, as appropriate) CPT copyright 2017 [employer]. All rights reserved. The codes documented in this report are preliminary and upon athlete manager review may be revised to meet current compliance requirements. Cyril Morfin DO 12/21/2021 12:21:27 PM This report has been signed electronically. Number of Addenda: 1 Note Initiated On: 12/21/2021 11:25 AM Addendum Number: 1 Addendum Date: 06/08/2022 6:37:23 AM MAC was used as sedation for this procedure. Cyril Morfin DO 06/08/2022 6:37:27 AM This report has been signed electronically.
--- NOTE | 2021-12-21 12:22 | OP.CCLET_ITS ---
[facility] This procedure was performed on Tuesday, December 21, 2021. My impressions and recommendations are as follows: Impressions : - LA Grade C reflux esophagitis. - Excessive gastric fluid. - No gross lesions in the second portion of the duodenum. - Feeding tube placement was successfully performed. - No specimens collected. Recommendations : - [facility] patient to [facility] for [facility] care. - Clear liquid diet. - Continue present medications. My findings are described in the full procedure note, which is enclosed. If I can be of further assistance, please feel free to contact me at . Sincerely, Cyril Friend, 12/21/2021 12:21:27 PM This report has been signed electronically.
--- NOTE | 2021-12-21 12:55 | SUR.PHASEI ---
ng to low intermittent suction draining yellowish green drainage was inserted in endoscopy.
[2021-12-21] MEDS: BENZOCAINE 20% SPRAY 1 EACH MUCOUS MEM (13:49)
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
[2021-12-21] MEDS: Lansoprazole 15 MG Capsule.DR 30 MG NG (18:26)
[2021-12-21] MEDS: Potassium Chloride Oral Soln 20 MEQ/15 ML UDC 40 MEQ NG (18:26)
[2021-12-21] MEDS: Polyethylene Glycol 3350 17 GM PACKET NG (21:11)
[2021-12-21] MEDS: HYDROcodone Bitartrate/Apap 5/325 Tablet NG (21:11)
[2021-12-21] MEDS: busPIRone 5 MG Tablet 10 MG NG (21:12)
[2021-12-21] MEDS: Senna Tablet 1 TABLET NG (21:12)
[2021-12-22] VITALS (7 sets, daily range): BP systolic 119–140; BP diastolic 73–88; PULSE 86–111; RESP 16–18; TEMP 36.2–37.1; O2SAT 94–98
[2021-12-22] MEDS: 0.9% Normal Saline 1,000 ML 75 ML IV ×2 (02:58→15:53)
[2021-12-22] MEDS: HYDROcodone Bitartrate/Apap 5/325 Tablet NG (05:39)
[2021-12-22 06:41] LABS: Anion Gap 11 (5-15); BUN 11 mg/dL (7-18); BUN/Creat Ratio 20.5 RATIO (10-20); Chloride 95 mmol/L (98-107); Creatinine, Serum 0.54 mg/dL (0.55-1.02); EST Glomerular Filtration Rate 127 mL/min (>60); Est Glom Filt Rate - Afr Amer 154 mL/min (>60); Estimated Creatinine Clearance 106.43 ml/min; Glucose 69 mg/dL (74-106); Potassium 3.4 mmol/L (3.5-5.1); Sodium Level 134 mmol/L (136-145)
--- NOTE | 2021-12-22 09:37 | RAD_ITS ---
STUDY: X-RAY - ABDOMEN/PELVIS REASON FOR EXAM: Female, 51 years old. NGT placement TECHNIQUE: Single AP view of the abdomen / pelvis. COMPARISON: None. FINDINGS: Small left moderate-sized pleural effusion with left basilar atelectasis. A right-sided portacatheter is seen with the tip at the junction of the superior vena cava and right atrium. A nasogastric tube is seen with the tip in the body of the stomach. There is an unremarkable bowel gas pattern. The visualized liver, spleen and kidneys are grossly normal in size and morphology. There are calcified phleboliths in the pelvis. Normal visualized osseous structures. RAD/Abdomen Single View (Portable) IMPRESSION: The tip of the nasogastric tube is in the body of the stomach. Left pleural effusion with left basilar atelectasis and/or infiltrate. Electronically Signed: Carlitos Roberts MD at 9:59 EDT ,
--- NOTE | 2021-12-22 09:43 | PCM.PN.HOSP ---
Subjective Subjective NG placed yesterday. Suction container has evacuated copious amounts of fluid. No BMs. +Flatus. Objective Data Objective Data Vital Signs: Vital Signs Temp Pulse Resp BP Pulse Ox 36.7 C 86 18 140/82 H 94 12/22/21 02:53 12/22/21 02:53 12/22/21 02:53 12/22/21 02:53 12/22/21 07:29 Oxygen Flow Rate (L/min) 3 Oxygen Delivery Method Room Air Weight: 87.2 kg Body Mass Index (BMI) 33.0 Intake & Output: Intake and Output for Last 24 Hours 12/20/21 12/21/21 12/22/21 23:59 23:59 23:59 Intake Total 1220 / 1220 2031.25 / 2031.25 1046.25 / 1046.25 Output Total 500 / 500 1300 / 1300 Balance 1220 / 1220 1531.25 / 1531.25 -253.75 / -253.75 Medical Nutrition Assessment Dietitian: Malnutrition Criteria Met Start: 12/21/21 15:59 Freq: Status: Active Protocol: Document 12/21/21 16:23 RMA (Rec: 12/21/21 16:23 RMA [id number]) Nutrition Malnutrition Evidence of Malnutrition Exists Yes Malnutrition (severe): Acute Illness/Injury Evidenced By Suboptimal Energy Intake ( Severe),Weight Loss (Severe) Clinical Problem Acute Disease or Injury Related Malnutrition Etiology Severe protein-calorie malnutrition in the context of acute illness related to altered GI function and inadequate oral intake Signs/Symptoms as evidenced by wt loss ~10-12 % x 3 months and poor oral intake meeting less than 50% estimated nutrition needs x past 2-3 weeks. Status Active Problem Recommendation Dietitian Recommendations/Changes Recommend advance diet as medically able to Clear Liquids to Transitional as tolerated with goal of Regular diet as able. Consider parenteral nutrition support if unable to advance PO diet in next 24-48 hours. Pt does not like ensure products or other PO medical nutrition supplements; will offer nutrition supplements as indicated and as tolerated. Lab / Micro Data Result Diagrams: 12/21/21 06:05 12/22/21 05:36 Labs: Laboratory Results - last 24 hr 12/22/21 05:36: Sodium 134 L, Potassium 3.4 L, Chloride 95 L, Carbon Dioxide 28.0, Anion Gap 11, BUN 11, Creatinine 0.54 L, Estim Creat Clear Calc 106.43, Est GFR (MDRD) Af Amer 154, Est GFR (MDRD) Non-Af 127, BUN/Creatinine Ratio 20.5 H, Glucose 69 L, Calcium 8.0 L Micro: Microbiology 12/20/21 12:05 Urine, Clean Catch Urine Culture - Final Mixed Gram Positive Organisms Physical Exam Const alert and no apparent distress HEENT HEENT Narrative: NGT in place. Resp normal respiratory effort, no retractions, no use of accessory muscles and clear to auscultation bilaterally Cardio regular rate, regular rhythm, S1 normal heart sound and S2 normal heart sound GI non-tender GI Narrative: distended. high-pitched bowel sounds. Extremity normal to inspection Assessment & Plan Assessment/Plan (1) Constipation: QUALIFIERS: Constipation type: other constipation type Qualified Code(s): K59.09 - Other constipation PLAN: 1. abdominal pain ongoing EGD showed esophagitis and excess gastric fluid. NGT placed during procedure. 2/2 constipation, omental mets, ileus minimize narcotics as able possible colonoscopy per GI reviewed EGD findings with patient today. 2. Hypokalemia ongoing replace mag normal 3. hypomagnesemia improved 4. stage IV colon cancer follow up with Dr. Schwarz 5. VTE prophylaxis: LMWH Charges/Coding Visit Charges Inpatient E&M: 50796 Subs Hosp L2
[2021-12-22] MEDS: LORazepam 2 MG/ML Syringe 0.5 MG IV ×2 (10:25→15:03)
[2021-12-22] MEDS: Ondansetron 4 MG/2 ML Vial IV (10:25)
[2021-12-22] MEDS: 0.9% Saline Lock 10 ML Syringe IV ×4 (10:25→20:55)
[2021-12-22] MEDS: Escitalopram Oxalate 20 MG Tablet NG (10:47)
[2021-12-22] MEDS: Lansoprazole 15 MG Capsule.DR 30 MG NG (10:48)
[2021-12-22] MEDS: Polyethylene Glycol 3350 17 GM PACKET NG (10:48)
[2021-12-22] MEDS: Senna Tablet 1 TABLET NG (10:48)
[2021-12-22] MEDS: busPIRone 5 MG Tablet 10 MG NG (10:48)
[2021-12-22] MEDS: Potassium Chloride 10mEq/100mL 10 MEQ/100 ML IV.SOLN. 100 MEQ IV BOLUS ×2 (11:31→12:52)
--- NOTE | 2021-12-22 13:50 | CASEMGMT ---
RN CM MACHINIST MATE CM to room to meet with patient for initial transition planning/care coordination assessment. BENITO REYES introduced self and role at [facility]. Pt voices understanding and consents to assessment at this time. Pt sitting up in recliner chair in no distress at this time. Pt is A/O at this time and answers all questions appropriately. Care providers, pharmacy, and demographics verified/updated at this time. PCP: Evon Steel. Pt states would like to switch to different PCP. Pt provide w/list of local PCP's. Specialists: Dr Morfin--Gastro; Dr Schwarz and Suzi Coello, SUPPLY TECH--oncology. Active w/Palliative care in [place], but does not remember name of Palliative co. [facility] Insurance: MMO Prescription Benefit: yes Living Will/HPOA: Has LW and HPOA, who is her mother, Jia. Both are on file @ [facility] LNOK: Jia James, mother Living Arrangements: Pt lives with mother and son in 2 story home and states no concerns at home. Pt is independent with ADL's. Son and mom help w/laundry since it is in the basement. Mom does most cooking. Transportation: Pt drives self and states no transportation concerns. Mom also drives. DME: shower chair, O2 through [employer] (states has not used in awhile), grab bars in shower. SNF/HHC: No hx of either. Denies need for HHC. Pt states is interested in counseling and prefers more of a group-setting w/others that are going through similar things I am. She also states would like info on social security disability. Dayana OLIVIA, made aware of both. Pt states no concerns with going home at time of discharge. Pt on short-term disability. Pt states no further concerns/needs. CM to follow for any further discharge planning/needs. Advised pt to ask for CM if any further questions/concerns/needs arise, voices understanding. Plan: Home w/mother support and discharge plans in place. Harpreet AGUIRRE RN CM
[2021-12-22] MEDS: proCHLORPERazine 10 MG/2 ML Vial 5 MG IV ×3 (13:55→21:46)
[2021-12-22] MEDS: Lidocaine 4% 5 ML Ampul 2 ML INHALATION (14:15)
[2021-12-22] MEDS: Oxymetazoline 0.05% 1 SPRAY SPRAY.BTL 2 SPRAY NASAL (14:30)
--- NOTE | 2021-12-22 16:02 | CASEMGMT ---
Social Work SW met with pt and introduced self and role of SW. Pt with dx of stage IV colon cancer. Pt willing to speak with SW and discuss feelings regarding cancer diagnosis and effects on life. SW encouraged verbalization of feelings and offered support. SW did speak with pt regarding support groups and provided pt with list of cancer support group options. Pt appreciative of information. SW will remain available should other needs arise. AMARILIS Scruggs
--- NOTE | 2021-12-22 17:34 | PCM.PROGNOTE ---
Subjective Subjective Patient was seen and examined this morning with her mother at the bedside. NG tube is in place. She has over 650 ml of bilious fluid that was taken out of NG tube. She has not had a bowel movement. She still complains of abdominal pain is requiring narcotics. The NG tube came out and had to be reinserted. Objective Data Objective Data Vital Signs: Vital Signs Temp Pulse Resp BP Pulse Ox 98.2 F 102 H 18 119/80 95 12/22/21 17:24 12/22/21 17:24 12/22/21 17:24 12/22/21 17:24 12/22/21 17:24 Oxygen Flow Rate (L/min) 3 Oxygen Delivery Method Room Air Weight: 192 lb 3.889 oz Body Mass Index (BMI) 33.0 Intake & Output: Intake and Output for Last 24 Hours 12/20/21 12/21/21 12/22/21 23:59 23:59 23:59 Intake Total 1220 / 1220 2031.25 / 2031.25 2245.50 / 2245.50 Output Total 500 / 500 2100 / 2100 Balance 1220 / 1220 1531.25 / 1531.25 145.50 / 145.50 Medical Nutrition Assessment Dietitian: Malnutrition Criteria Met Start: 12/21/21 15:59 Freq: Status: Active Protocol: Document 12/21/21 16:23 RMA (Rec: 12/21/21 16:23 RMA [id number]) Nutrition Malnutrition Evidence of Malnutrition Exists Yes Malnutrition (severe): Acute Illness/Injury Evidenced By Suboptimal Energy Intake ( Severe),Weight Loss (Severe) Clinical Problem Acute Disease or Injury Related Malnutrition Etiology Severe protein-calorie malnutrition in the context of acute illness related to altered GI function and inadequate oral intake Signs/Symptoms as evidenced by wt loss ~10-12 % x 3 months and poor oral intake meeting less than 50% estimated nutrition needs x past 2-3 weeks. Status Active Problem Recommendation Dietitian Recommendations/Changes Recommend advance diet as medically able to Clear Liquids to Transitional as tolerated with goal of Regular diet as able. Consider parenteral nutrition support if unable to advance PO diet in next 24-48 hours. Pt does not like ensure products or other PO medical nutrition supplements; will offer nutrition supplements as indicated and as tolerated. Lab / Micro Data Result Diagrams: 12/21/21 06:05 12/22/21 05:36 Labs: Laboratory Results - last 24 hr 12/22/21 05:36: Sodium 134 L, Potassium 3.4 L, Chloride 95 L, Carbon Dioxide 28.0, Anion Gap 11, BUN 11, Creatinine 0.54 L, Estim Creat Clear Calc 106.43, Est GFR (MDRD) Af Amer 154, Est GFR (MDRD) Non-Af 127, BUN/Creatinine Ratio 20.5 H, Glucose 69 L, Calcium 8.0 L Micro: Microbiology 12/20/21 09:31 Blood Culture (Wb) - Anticubital Left Blood Culture - Preliminary No growth in 48 hours. 12/20/21 09:40 Blood Culture (Wb) - Port Blood Culture - Preliminary No growth in 48 hours. 12/20/21 12:05 Urine, Clean Catch Urine Culture - Final Mixed Gram Positive Organisms Radiography Diagnostic Testing: Radiology Impression KUB X-Ray 12/22/21 09:37 IMPRESSION: The tip of the nasogastric tube is in the body of the stomach. Left pleural effusion with left basilar atelectasis and/or infiltrate. Electronically Signed: Carlitos Roberts MD at 9:59 EDT , Physical Exam Const alert General Appearance: cooperative Orientation / Consciousness: oriented to person HEENT hearing grossly normal bilaterally Head and Scalp: normal to inspection Face and Sinus: face symmetric Nose: external nose normal Mouth: oral and palatal mucosa normal Eyes conjunctivae normal General Eye: normal appearance of both eyes Neck full ROM General: normal visual inspection Lymph Lymphatic: no lymphadenopathy noted Chest inspection of chest normal and palpation of chest normal Chest: symmetrical chest wall rise Resp normal respiratory effort Effort and Inspection: able to speak in complete sentences Cardio regular rate GI non-distended Percussion: normal to percussion Rectal Exam: deferred Neuro Speech: speech normal Gait (Neuro): normal gait Assessment & Plan Assessment/Plan (1) Personal history of colon cancer, stage IV: PLAN: Therapy now for stage IV colon cancer. She is known to have peritoneal carcinomatosis. (2) Bowel obstruction: PLAN: Her initial CT scan showed mild dilation of the small bowel without clear obstruction. I will order a CT scan of the abdomen pelvis with contrast through the IV to see if there is a stricture that is amenable to stenting as she is not a surgical candidate at this time. Continue NG tube to low intermittent suction and patient can have ice chips. Charges/Coding Visit Charges Inpatient E&M: 35909 Subs Hosp L2
--- NOTE | 2021-12-22 18:01 | CT_ITS ---
INDICATION: colon cancer, bowel obstruction, stricture EXAMINATION: CT Abdomen And Pelvis W/ Contrast Injection TECHNIQUE: Helically acquired images were obtained of the abdomen and pelvis after IV contrast. A radiation dose optimization technique was used for this scan. IV Contrast dosage and agent: Oral and amp; IV Gastrografin and amp; 100mL Isovue-370 Oral contrast: None. COMPARISON: 12/20/2021. FINDINGS: Visualized lung bases: Unchanged large left and trace right pleural effusions. Liver: Diffusely hypodense consistent with fatty liver. Gallbladder: Not visualized, possibly surgically absent. Spleen: Unremarkable Pancreas: Unremarkable Adrenal Glands: Unchanged 1.7 cm heterogeneously enhancing left adrenal nodule. Kidneys: Unremarkable Vasculature: Mild scattered aortoiliac atherosclerotic calcifications. GI Tract: Ill-defined thickening of the ascending colon, similar in appearance to prior. Lymphadenopathy: None Peritoneum: Redemonstration of omental caking. Similar size and appearance of partially loculated and rim-enhancing fluid collection along the greater curvature of the stomach measuring approximately 3.3 x 2 cm. Bladder: Unremarkable Reproductive organs: Unremarkable Bones/Soft tissues: Innumerable skeletal metastases are again seen. CT/Abdomen/Pelvis WITH Contrast IMPRESSION: No change from prior study on 12/20/2021. Electronically Signed: Desmond Anderson MD at 20:42 EDT ,
--- NOTE | 2021-12-22 20:49 | NURSING ---
Pt was found getting food out of the refreshment centrer. Gregg OLIVER informed pt that she is NPO.
[2021-12-22] MEDS: Senna Tablet 1 TABLET PO (22:16)
[2021-12-22] MEDS: busPIRone 5 MG Tablet 10 MG PO (22:16)
[2021-12-23] VITALS (14 sets, daily range): BP systolic 118–153; BP diastolic 67–88; PULSE 76–99; RESP 16–18; TEMP 36.3–37.1; O2SAT 92–98; BMI 32.9
[2021-12-23] MEDS: 0.9% Normal Saline 1,000 ML 75 ML IV ×2 (05:03→23:17)
[2021-12-23] MEDS: Enoxaparin 40 MG/0.4 ML Syringe SC (05:03)
[2021-12-23 06:36] LABS: Absolute Lymphocyte Count 0.75 X10^3/uL (0.83-4.51); Absolute Neutrophil Count 6.3 X10^3/uL (2.0-7.7); Basophil# 0.03 X10^3/uL; Basophil% 0.4 % (0-1); Eosinophil# 0.13 X10^3/uL; Eosinophils% 1.6 % (0-5); Hematocrit 32.1 % (37-47); Hemoglobin 10.5 g/dL (12.0-15.0); Lymphocyte # 0.75 X10^3/ul (0.83-4.51); Lymphocyte % 9.1 % (19-41); Mean Corp Hgb Conc 32.7 g/dL (32-36); Mean Corpuscular Hgb 29.2 pg (27.0-32.0); Mean Corpuscular Volume 89.2 fL (81-99); Mean Platelet Vol. 9.2 fl (6.2-12.0); Monocyte# 0.87 X10^3/uL; Monocyte% 10.6 % (0-10); NRBC Flagged by Analyzer 0 % (0-5); Neutrophil # 6.29 X10^3/uL (2.7-7.7); Neutrophil % 76.6 % (47-70); Platelet Count 185 K/mm3 (150-450); RBC Distribution Width CV 15.9 % (11.6-14.6); RBC Distribution Width SD 52.2 fl (35.1-43.9); White Blood Count 8.2 K/mm3 (4.4-11.0)
[2021-12-23 07:02] LABS: Anion Gap 10 (5-15); BUN 12 mg/dL (7-18); BUN/Creat Ratio 21.4 RATIO (10-20); Calcium,Total 7.8 mg/dL (8.5-10.1); Chloride 96 mmol/L (98-107); Creatinine, Serum 0.56 mg/dL (0.55-1.02); EST Glomerular Filtration Rate 121 mL/min (>60); Est Glom Filt Rate - Afr Amer 146 mL/min (>60); Estimated Creatinine Clearance 102.63 ml/min; Glucose 75 mg/dL (74-106); Potassium 3.2 mmol/L (3.5-5.1); Sodium Level 134 mmol/L (136-145)
[2021-12-23] MEDS: proCHLORPERazine 10 MG/2 ML Vial 5 MG IV ×4 (08:02→22:46)
[2021-12-23] MEDS: 0.9% Saline Lock 10 ML Syringe IV ×4 (08:02→17:20)
[2021-12-23 09:01] LABS: Bedside Glucose 80 mg/dL (74-106)
[2021-12-23] MEDS: Senna Tablet 1 TABLET PO ×2 (10:22→21:52)
[2021-12-23] MEDS: Polyethylene Glycol 3350 17 GM PACKET PO ×2 (10:23→21:53)
[2021-12-23] MEDS: Pantoprazole Sodium 40 MG Tablet PO (10:23)
[2021-12-23] MEDS: busPIRone 5 MG Tablet 10 MG PO ×2 (10:23→21:53)
[2021-12-23] MEDS: Escitalopram Oxalate 20 MG Tablet PO (10:23)
--- NOTE | 2021-12-23 10:35 | PCM.PN.HOSP ---
Subjective Subjective Pt removed NGT yesterday. Declined to have it replaced. No vomiting. Abdominal pain tolerable. No BM/flatus. Objective Data Objective Data Vital Signs: Vital Signs Temp Pulse Resp BP Pulse Ox 36.8 C 76 18 128/82 H 92 12/23/21 07:46 12/23/21 07:46 12/23/21 07:46 12/23/21 07:46 12/23/21 09:34 Oxygen Flow Rate (L/min) 3 Oxygen Delivery Method Room Air Weight: 86.954 kg Body Mass Index (BMI) 33.0 Intake & Output: Intake and Output for Last 24 Hours 12/21/21 12/22/21 12/23/21 23:59 23:59 23:59 Intake Total 2031.25 / 2031.25 2245.50 / 2245.50 1207.5 / 1207.5 Output Total 500 / 500 2600 / 2600 200 / 200 Balance 1531.25 / 1531.25 -354.50 / -354.50 1007.5 / 1007.5 Medical Nutrition Assessment Dietitian: Malnutrition Criteria Met Start: 12/21/21 15:59 Freq: Status: Active Protocol: Document 12/23/21 10:23 RMA (Rec: 12/23/21 10:23 RMA [id number]) Nutrition Malnutrition Evidence of Malnutrition Exists Yes Malnutrition (severe): Acute Illness/Injury Evidenced By Suboptimal Energy Intake ( Severe),Weight Loss (Severe) Intake Problem Inadequate Oral Intake Etiology related to altered GI function /bowel obstruction Signs/Symptoms as evidenced by NPO day 4 today and need for parenteral nutrition support Status Active Problem Clinical Problem Acute Disease or Injury Related Malnutrition Etiology Severe protein-calorie malnutrition in the context of acute illness related to altered GI function and inadequate oral intake Signs/Symptoms as evidenced by wt loss ~10-12 % x 3 months, poor oral intake meeting less than 50% estimated nutrition needs x past 2-3 weeks and NPO status. Status Active Problem Recommendation Dietitian Recommendations/Changes 1.) TPN day #1 today to start with 1 L Clinimix 8% amino acid/14% dextrose @ 42 ml/hr with electrolytes, folic acid, MVI and trace elements (no lipids on day #1) to provide 798 kcal, 140 gm dextrose and 80 gm protein per day. TPN will meet ~40% estimated calorie and ~90% estimated protein needs. Will increase TPN as tolerated to better meet estimated energy needs as tolerance established. Lipids typically every other day. 2.) Daily Weights ordered. 3.) Ordered labs mag/phos 12/23 , 12/24, 12/25 and triglyceride level 12/23. 4.) Recommend advance diet as medically able to Clear Liquids; Pt does not like ensure products or other PO medical nutrition supplements; will offer nutrition supplements as indicated and as tolerated. Lab / Micro Data Result Diagrams: 12/23/21 05:55 12/23/21 05:55 Labs: Laboratory Results - last 24 hr 12/23/21 05:55: WBC 8.2, RBC 3.60 L, Hgb 10.5 L, Hct 32.1 L, MCV 89.2, MCH 29.2, MCHC 32.7, RDW Std Deviation 52.2 H, RDW Coeff of Mohsen 15.9 H, Plt Count 185, MPV 9.2, Immature Gran % (Auto) 1.700 H, Neut % (Auto) 76.6 H, Lymph % (Auto) 9.1 L, [place] % (Auto) 10.6 H, Eos % (Auto) 1.6, Baso % (Auto) 0.4, Absolute Neuts (auto) 6.3, Absolute Lymphs (auto) 0.75 L, Nucleated RBC % 0 12/23/21 05:55: Sodium 134 L, Potassium 3.2 L, Chloride 96 L, Carbon Dioxide 28.0, Anion Gap 10, BUN 12, Creatinine 0.56, Estim Creat Clear Calc 102.63, Est GFR (MDRD) Af Amer 146, Est GFR (MDRD) Non-Af 121, BUN/Creatinine Ratio 21.4 H, Glucose 75, Calcium 7.8 L 12/23/21 07:56: POC Glucose 80 Micro: Microbiology 12/20/21 09:31 Blood Culture (Wb) - Anticubital Left Blood Culture - Preliminary No growth in 48 hours. 12/20/21 09:40 Blood Culture (Wb) - Port Blood Culture - Preliminary No growth in 48 hours. 12/20/21 12:05 Urine, Clean Catch Urine Culture - Final Mixed Gram Positive Organisms Radiography Diagnostic Testing: Radiology Impression Abdomen/Pelvis CT 12/22/21 18:01 IMPRESSION: No change from prior study on 12/20/2021. Electronically Signed: Desmond Anderson MD at 20:42 EDT , Physical Exam Const alert and no apparent distress HEENT head/scalp atraumatic Head and Scalp: normocephalic Resp normal respiratory effort, no retractions, no use of accessory muscles and clear to auscultation bilaterally Cardio regular rate, regular rhythm, S1 normal heart sound and S2 normal heart sound GI GI Narrative: distended. hypoactive BS. Extremity normal to inspection Assessment & Plan Assessment/Plan (1) Colon cancer: QUALIFIERS: Colon location: ascending Qualified Code(s): C18.2 - Malignant neoplasm of ascending colon (2) Malignant pleural effusion: PLAN: 1. abdominal pain ongoing EGD showed esophagitis and excess gastric fluid. NGT placed during procedure, since removed, but decline to have replaced. 2/2 omental caking, bowel obstruction minimize narcotics as able DW Dr. Morfin, plan is for palliative PEG tube to help with decompression NPO consult nutrition for TPN 2. Hypokalemia ongoing replace mag normal 3. hypomagnesemia improved 4. stage IV colon cancer follow up with Dr. Schwarz 5. VTE prophylaxis: LMWH Charges/Coding Visit Charges Inpatient E&M: 19234 Subs Hosp L2
[2021-12-23] MEDS: HYDROcodone Bitartrate/Apap 5/325 Tablet PO (11:02)
--- NOTE | 2021-12-23 11:03 | NURSING ---
called into pts room for c/o abd pain. pt states had approx. 900ml emesis yellow color but continues with pain across upper abdomen and continues to request to try the norco. given as requested. discussed NGTube. pt states there is no way i can do that while awake
[2021-12-23 11:32] LABS: Magnesium 1.9 mg/dL (1.6-2.6); Phosphorus 3.1 mg/dL (2.5-4.9); Triglycerides 123 mg/dL
[2021-12-23] MEDS: Potassium Chloride 10mEq/100mL 10 MEQ/100 ML IV.SOLN. 100 MEQ IV BOLUS ×4 (11:58→15:40)
[2021-12-23 12:20] LABS: Bedside Glucose 82 mg/dL (74-106)
--- NOTE | 2021-12-23 12:58 | CASEMGMT ---
Social Work SW followup with pt to offer continued support related to diagnosis and illness. Pt appreciative of visit. SW will remain available if further needs arise. AMARILIS Scruggs
[2021-12-23] MEDS: TPN - Clinimix E 8%-14% Soln 2,000 ML with Multivitamins 10 ML, Trace Elements 1 ML, Fo... 42 ML IV (17:12)
[2021-12-23 17:41] LABS: Bedside Glucose 92 mg/dL (74-106)
[2021-12-23] MEDS: Lidocaine 1% (20 ml mdv) 20 ML Vial (19:08)
--- NOTE | 2021-12-23 19:39 | OP.EGD_ITS ---
Patient Name: Mónica James Procedure Date: 12/23/2021 6:28 PM Date of : 1970 Age: 51 Procedure: Upper GI endoscopy Indications: Epigastric abdominal pain Providers: Cyril Morfin DO Medicines: Sedation Required Anesthesia Staff Assistance Patient Profile: This is a 51 year old female. Refer to note in patient chart for documentation of history and physical. Patient has symptoms of acute vomiting. Complications: No immediate complications. Procedure: Pre-Anesthesia Assessment: - Prior to the procedure, a History and Physical was performed, and patient medications and allergies were reviewed. The patient is competent. The risks and benefits of the procedure and the sedation options and risks were discussed with the patient. All questions were answered and informed consent was obtained. Patient identification and proposed procedure were verified by the physician in the pre-procedure area. Mental Status Examination: alert and oriented. Airway Examination: normal oropharyngeal airway and neck mobility. Respiratory Examination: clear to auscultation. CV Examination: normal. Prophylactic Antibiotics: The patient does not require prophylactic antibiotics. Prior Anticoagulants: The patient has taken no previous anticoagulant or antiplatelet agents. ASA Grade Assessment: II - A patient with mild systemic disease. After reviewing the risks and benefits, the patient was deemed in satisfactory condition to undergo the procedure. The anesthesia plan was to use moderate sedation / analgesia (conscious sedation). Immediately prior to administration of medications, the patient was re-assessed for adequacy to receive sedatives. The heart rate, respiratory rate, oxygen saturations, blood pressure, adequacy of pulmonary ventilation, and response to care were monitored throughout the procedure. The physical status of the patient was re-assessed after the procedure. After obtaining informed consent, the endoscope was passed under direct vision. Throughout the procedure, the patient's blood pressure, pulse, and oxygen saturations were monitored continuously. The Endoscope was introduced through the mouth, and advanced to the second part of duodenum. The upper GI endoscopy was accomplished without difficulty. The patient tolerated the procedure well. Moderate Sedation: Moderate (conscious) sedation was administered by the endoscopy nurse and supervised by the endoscopist. The patient's oxygen saturation, heart rate, blood pressure and response to care were monitored. Total physician intraservice time was 15 minutes. Scope In: 6:52:06 PM Scope Out: 7:25:01 PM Total Procedure Duration Time 0 hours 32 minutes 55 seconds Findings: LA Grade C (one or more mucosal breaks continuous between tops of 2 or more mucosal folds, less than 75% circumference) esophagitis with no bleeding was found 33 to 38 cm from the incisors. Bilious fluid was found in the stomach. Fluid aspiration was performed through the scope suction channel. The amount of fluid collected was 1000 mL. Verification of patient identification for the specimen was done. Estimated blood loss was minimal. Diffuse severe inflammation characterized by erosions, erythema and granularity was found in the entire examined stomach. The patient was placed in the supine position for PEG placement. The stomach was insufflated to appose gastric and abdominal hernandez. A site was located in the cardia with excellent transillumination for placement. The abdominal wall was marked and prepped in a sterile manner. The area was anesthetized with 4 mL of 0.5% lidocaine. The trocar needle was introduced through the abdominal wall and into the stomach under direct endoscopic view. A snare was introduced through the endoscope and opened in the gastric lumen. The guide wire was passed through the trocar and into the open snare. The snare was closed around the guide wire. The endoscope and snare were removed, pulling the wire out through the mouth. A skin incision was made at the site of needle insertion. The externally removable 14 Fr Bard gastrostomy tube was lubricated. The G-tube was tied to the guide wire and pulled through the mouth and into the stomach. The trocar needle was removed, and the gastrostomy tube was pulled out from the stomach through the skin. The external bumper was attached to the gastrostomy tube, and the tube was cut to remove the guide wire. The final position of the gastrostomy tube was confirmed by relook endoscopy, and skin marking noted to be 4 cm at the external bumper. The final tension and compression of the abdominal wall by the PEG tube and external bumper were checked. The feeding tube was capped, and the tube site cleaned and dressed. Estimated blood loss was minimal. Diffuse moderate inflammation characterized by congestion (edema) was found in the second portion of the duodenum. Impression: - LA Grade C reflux esophagitis. - Bilious gastric fluid. Fluid aspiration performed. - Gastritis. - Duodenitis. - An externally removable PEG placement was successfully completed. Recommendation: - Return patient to [facility] for [facility] care. - Full liquid diet. - Continue present medications. Procedure Code(s): --- Professional --- 12817, Esophagogastroduodenoscopy, flexible, transoral; with directed placement of percutaneous gastrostomy tube G0500, Moderate sedation services provided by the same physician or other qualified health patient care technician instructor performing a gastrointestinal endoscopic service that sedation supports, requiring the presence of an independent trained observer to assist in the monitoring of the patient's level of consciousness and physiological status; initial 15 minutes of intra-service time; patient age 5 years or older (additional time may be reported with 58280, as appropriate) CPT copyright 2017 [employer]. All rights reserved. The codes documented in this report are preliminary and upon licensed sales producer review may be revised to meet current compliance requirements. Cyril Morfin DO 12/23/2021 7:38:36 PM This report has been signed electronically. Number of Addenda: 1 Note Initiated On: 12/23/2021 6:28 PM Addendum Number: 1 Addendum Date: 06/08/2022 6:34:01 AM MAC was used as sedation for this procedure. Cyril Morfin DO 06/08/2022 6:34:05 AM This report has been signed electronically.
--- NOTE | 2021-12-23 19:39 | OP.CCLET_ITS ---
06/08/2022 [facility] Re : Upper GI end[facility] This procedure was performed on Thursday, December 23, 2021. My impressions and recommendations are as follows: Impressions : - LA Grade C reflux esophagitis. - Bilious gastric fluid. Fluid aspiration performed. - Gastritis. - Duodenitis. - An externally removable PEG placement was successfully completed. Recommendations : - Return patient to [facility] for ongoing care. - Full liquid diet. - Continue present medications. My findings are described in the full procedure note, which is enclosed. If I can be of further assistance, please feel free to contact me at . Sincerely, Cyril Morfin, 12/23/2021 7:38:36 PM This report has been signed electronically.
[2021-12-23] MEDS: Morphine 2 MG/ML Syringe IV (22:02)
[2021-12-24 00:11] LABS: Bedside Glucose 113 mg/dL (74-106)
[2021-12-24] MEDS: Morphine 2 MG/ML Syringe IV ×6 (04:04→21:22)
[2021-12-24 04:10] VITALS: BP 127/73; PULSE 90; RESP 16; TEMP 37.2; O2SAT 93
[2021-12-24] MEDS: Enoxaparin 40 MG/0.4 ML Syringe SC (05:05)
[2021-12-24] MEDS: Acetaminophen 325 MG Tablet 650 MG PO (06:00)
[2021-12-24 06:25] LABS: Bedside Glucose 119 mg/dL (74-106)
[2021-12-24 06:29] LABS: Absolute Lymphocyte Count 0.52 X10^3/uL (0.83-4.51); Absolute Neutrophil Count 4.9 X10^3/uL (2.0-7.7); Basophil# 0.03 X10^3/uL; Basophil% 0.5 % (0-1); Eosinophil# 0.17 X10^3/uL; Eosinophils% 2.6 % (0-5); Hematocrit 30.8 % (37-47); Hemoglobin 9.9 g/dL (12.0-15.0); Lymphocyte # 0.52 X10^3/ul (0.83-4.51); Mean Corp Hgb Conc 32.1 g/dL (32-36); Mean Corpuscular Hgb 28.6 pg (27.0-32.0); Mean Platelet Vol. 9.4 fl (6.2-12.0); Monocyte# 0.62 X10^3/uL; Monocyte% 9.6 % (0-10); NRBC Flagged by Analyzer 0 % (0-5); Neutrophil # 4.94 X10^3/uL (2.7-7.7); Neutrophil % 76.1 % (47-70); POSITIVE DIFFERENTIAL YES; Platelet Count 198 K/mm3 (150-450); RBC Distribution Width SD 52.5 fl (35.1-43.9); Red Blood Count 3.46 M/mm3 (4.2-5.4); White Blood Count 6.5 K/mm3 (4.4-11.0)
[2021-12-24 06:31] LABS: Differential Indicated SCAN CRITERIA MET
[2021-12-24 06:46] LABS: Differential Comment SCANNED
[2021-12-24 06:56] LABS: ALB/GLOB Ratio 0.4 RATIO (0.9-2.4); AST(SGOT) 17 U/L (15-37); Alanine Aminotransfer ALT/SGPT 11 U/L (13-56); Albumin, Serum 1.6 g/dL (3.2-5.0); Alkaline Phosphatase 132 U/L (45-117); Anion Gap 7 (5-15); BUN 12 mg/dL (7-18); BUN/Creat Ratio 26.7 RATIO (10-20); Calcium,Total 7.8 mg/dL (8.5-10.1); Chloride 100 mmol/L (98-107); Creatinine, Serum 0.45 mg/dL (0.55-1.02); EST Glomerular Filtration Rate 156 mL/min (>60); Est Glom Filt Rate - Afr Amer 189 mL/min (>60); Estimated Creatinine Clearance 127.72 ml/min; Globulin 4.1 g/dL (2.2-4.2); Glucose 116 mg/dL (74-106); Magnesium 1.7 mg/dL (1.6-2.6); Phosphorus 2.8 mg/dL (2.5-4.9); Potassium 3.2 mmol/L (3.5-5.1); Protein, Total 5.7 g/dL (6.4-8.2); Sodium Level 136 mmol/L (136-145)
[2021-12-24 07:40] VITALS: BP 126/73; PULSE 82; RESP 18; TEMP 37; O2SAT 95
[2021-12-24] MEDS: proCHLORPERazine 10 MG/2 ML Vial 5 MG IV ×2 (07:50→18:21)
--- NOTE | 2021-12-24 08:57 | PN_ITS ---
Subjective Subjective She is status post decompressive PEG tube placed for outlet obstruction. She had 800 mL of bilious fluid out overnight with PEG tube at low intermittent suction. Objective Data Objective Data Vital Signs: Vital Signs Temp Pulse Resp BP Pulse Ox 98.6 F 82 18 126/73 H 95 12/24/21 07:40 12/24/21 07:40 12/24/21 07:40 12/24/21 07:40 12/24/21 07:40 Oxygen Flow Rate (L/min) 3 Oxygen Delivery Method Room Air Weight: 195 lb 5.273 oz Body Mass Index (BMI) 32.9 Intake & Output: Intake and Output for Last 24 Hours 12/22/21 12/23/21 12/24/21 23:59 23:59 23:59 Intake Total 2245.50 / 2245.50 2464.65 / 2464.65 Output Total 2600 / 2600 1700 / 1700 550 / 550 Balance -354.50 / -354.50 764.65 / 764.65 -550 / -550 Medical Nutrition Assessment Dietitian: Malnutrition Criteria Met Start: 12/21/21 15:59 Freq: Status: Active Protocol: Document 12/23/21 10:23 RMA (Rec: 12/23/21 10:23 RMA [id number]) Nutrition Malnutrition Evidence of Malnutrition Exists Yes Malnutrition (severe): Acute Illness/Injury Evidenced By Suboptimal Energy Intake ( Severe),Weight Loss (Severe) Intake Problem Inadequate Oral Intake Etiology related to altered GI function /bowel obstruction Signs/Symptoms as evidenced by NPO day 4 today and need for parenteral nutrition support Status Active Problem Clinical Problem Acute Disease or Injury Related Malnutrition Etiology Severe protein-calorie malnutrition in the context of acute illness related to altered GI function and inadequate oral intake Signs/Symptoms as evidenced by wt loss ~10-12 % x 3 months, poor oral intake meeting less than 50% estimated nutrition needs x past 2-3 weeks and NPO status. Status Active Problem Recommendation Dietitian Recommendations/Changes 1.) TPN day #1 today to start with 1 L Clinimix 8% amino acid/14% dextrose @ 42 ml/hr with electrolytes, folic acid, MVI and trace elements (no lipids on day #1) to provide 798 kcal, 140 gm dextrose and 80 gm protein per day. TPN will meet ~40% estimated calorie and ~90% estimated protein needs. Will increase TPN as tolerated to better meet estimated energy needs as tolerance established. Lipids typically every other day. 2.) Daily Weights ordered. 3.) Ordered labs mag/phos 12/23 , 12/24, 12/25 and triglyceride level 12/23. 4.) Recommend advance diet as medically able to Clear Liquids; Pt does not like ensure products or other PO medical nutrition supplements; will offer nutrition supplements as indicated and as tolerated. Lab / Micro Data Result Diagrams: 12/24/21 05:40 12/24/21 05:40 Labs: Laboratory Results - last 24 hr 12/23/21 05:55: Phosphorus 3.1, Magnesium 1.9, Triglycerides 123 12/23/21 07:56: POC Glucose 80 12/23/21 12:05: POC Glucose 82 12/23/21 17:33: POC Glucose 92 12/24/21 00:07: POC Glucose 113 H 12/24/21 05:40: Sodium 136, Potassium 3.2 L, Chloride 100, Carbon Dioxide 29.0, Anion Gap 7, BUN 12, Creatinine 0.45 L, Estim Creat Clear Calc 127.72, Est GFR (MDRD) Af Amer 189, Est GFR (MDRD) Non-Af 156, BUN/Creatinine Ratio 26.7 H, Glucose 116 H, Calcium 7.8 L, Phosphorus 2.8, Magnesium 1.7, Total Bilirubin 0.20, AST 17, ALT 11 L, Alkaline Phosphatase 132 H, Total Protein 5.7 L, Albumin 1.6 L, Globulin 4.1, Albumin/Globulin Ratio 0.4 L 12/24/21 05:40: WBC 6.5, RBC 3.46 L, Hgb 9.9 L, Hct 30.8 L, MCV 89.0, MCH 28.6, MCHC 32.1, RDW Std Deviation 52.5 H, RDW Coeff of Mohsen 16.0 H, Plt Count 198, MPV 9.4, Immature Gran % (Auto) 3.200 H, Neut % (Auto) 76.1 H, Lymph % (Auto) 8.0 L, [place] % (Auto) 9.6, Eos % (Auto) 2.6, Baso % (Auto) 0.5, Absolute Neuts (auto) 4.9, Absolute Lymphs (auto) 0.52 L, Nucleated RBC % 0, Differential Comment SCANNED 04/16/22 06:21: POC Glucose 119 H Micro: Microbiology 12/20/21 09:31 Blood Culture (Wb) - Anticubital Left Blood Culture - Preliminary No growth in 48 hours. 12/20/21 09:40 Blood Culture (Wb) - Port Blood Culture - Preliminary No growth in 48 hours. 12/20/21 12:05 Urine, Clean Catch Urine Culture - Final Mixed Gram Positive Organisms Physical Exam Const alert General Appearance: cooperative Orientation / Consciousness: oriented to person HEENT hearing grossly normal bilaterally Head and Scalp: normal to inspection Face and Sinus: face symmetric Nose: external nose normal Mouth: oral and palatal mucosa normal Eyes conjunctivae normal General Eye: normal appearance of both eyes Neck full ROM General: normal visual inspection Lymph Lymphatic: no lymphadenopathy noted Chest inspection of chest normal and palpation of chest normal Chest: symmetrical chest wall rise Resp normal respiratory effort Effort and Inspection: able to speak in complete sentences Cardio regular rate GI non-distended GI Narrative: Mildly tender around the stomal site without fluctuance or erythema. Percussion: normal to percussion Rectal Exam: deferred Neuro Speech: speech normal Gait (Neuro): normal gait Assessment & Plan Assessment/Plan (1) Bowel obstruction: PLAN: Hopefully she will open up after several days of being on TPN and having decompression via PEG tube. I had a long conversation with her and her mother regarding her prognosis and natural history of the disease. She still wishes to pursue all therapeutic modalities at this time. (2) Personal history of colon cancer, stage IV: PLAN: Poor prognosis Charges/Coding Visit Charges Inpatient E&M: 14256 Subs Hosp L2
[2021-12-24] MEDS: Pantoprazole Sodium 40 MG Tablet PO (09:55)
[2021-12-24] MEDS: busPIRone 5 MG Tablet 10 MG PO ×2 (09:55→20:58)
[2021-12-24] MEDS: Escitalopram Oxalate 20 MG Tablet PO (09:55)
[2021-12-24] MEDS: Polyethylene Glycol 3350 17 GM PACKET PO ×2 (09:56→20:58)
[2021-12-24] MEDS: Senna Tablet 1 TABLET PO ×2 (09:56→20:59)
--- NOTE | 2021-12-24 10:22 | PCM.PN.HOSP ---
Subjective Subjective PEG tube placed yesterday. Had large emesis before the procedure and copious fluid aspirated afterwards. Pain worse with movement. Objective Data Objective Data Vital Signs: Vital Signs Temp Pulse Resp BP Pulse Ox 37.0 C 82 18 126/73 H 95 12/24/21 07:40 12/24/21 07:40 12/24/21 07:40 12/24/21 07:40 12/24/21 07:40 Oxygen Flow Rate (L/min) 3 Oxygen Delivery Method Room Air Weight: 88.6 kg Body Mass Index (BMI) 32.9 Intake & Output: Intake and Output for Last 24 Hours 12/22/21 12/23/21 12/24/21 23:59 23:59 23:59 Intake Total 2245.50 / 2245.50 2464.65 / 2464.65 Output Total 2600 / 2600 1700 / 1700 550 / 550 Balance -354.50 / -354.50 764.65 / 764.65 -550 / -550 Medical Nutrition Assessment Dietitian: Malnutrition Criteria Met Start: 12/21/21 15:59 Freq: Status: Active Protocol: Document 12/23/21 10:23 RMA (Rec: 12/23/21 10:23 RMA [id number]) Nutrition Malnutrition Evidence of Malnutrition Exists Yes Malnutrition (severe): Acute Illness/Injury Evidenced By Suboptimal Energy Intake ( Severe),Weight Loss (Severe) Intake Problem Inadequate Oral Intake Etiology related to altered GI function /bowel obstruction Signs/Symptoms as evidenced by NPO day 4 today and need for parenteral nutrition support Status Active Problem Clinical Problem Acute Disease or Injury Related Malnutrition Etiology Severe protein-calorie malnutrition in the context of acute illness related to altered GI function and inadequate oral intake Signs/Symptoms as evidenced by wt loss ~10-12 % x 3 months, poor oral intake meeting less than 50% estimated nutrition needs x past 2-3 weeks and NPO status. Status Active Problem Recommendation Dietitian Recommendations/Changes 1.) TPN day #1 today to start with 1 L Clinimix 8% amino acid/14% dextrose @ 42 ml/hr with electrolytes, folic acid, MVI and trace elements (no lipids on day #1) to provide 798 kcal, 140 gm dextrose and 80 gm protein per day. TPN will meet ~40% estimated calorie and ~90% estimated protein needs. Will increase TPN as tolerated to better meet estimated energy needs as tolerance established. Lipids typically every other day. 2.) Daily Weights ordered. 3.) Ordered labs mag/phos 12/23 , 12/24, 12/25 and triglyceride level 12/23. 4.) Recommend advance diet as medically able to Clear Liquids; Pt does not like ensure products or other PO medical nutrition supplements; will offer nutrition supplements as indicated and as tolerated. Lab / Micro Data Result Diagrams: 12/24/21 05:40 12/24/21 05:40 Labs: Laboratory Results - last 24 hr 12/23/21 05:55: Phosphorus 3.1, Magnesium 1.9, Triglycerides 123 12/23/21 12:05: POC Glucose 82 12/23/21 17:33: POC Glucose 92 12/24/21 00:07: POC Glucose 113 H 12/24/21 05:40: Sodium 136, Potassium 3.2 L, Chloride 100, Carbon Dioxide 29.0, Anion Gap 7, BUN 12, Creatinine 0.45 L, Estim Creat Clear Calc 127.72, Est GFR (MDRD) Af Amer 189, Est GFR (MDRD) Non-Af 156, BUN/Creatinine Ratio 26.7 H, Glucose 116 H, Calcium 7.8 L, Phosphorus 2.8, Magnesium 1.7, Total Bilirubin 0.20, AST 17, ALT 11 L, Alkaline Phosphatase 132 H, Total Protein 5.7 L, Albumin 1.6 L, Globulin 4.1, Albumin/Globulin Ratio 0.4 L 12/24/21 05:40: WBC 6.5, RBC 3.46 L, Hgb 9.9 L, Hct 30.8 L, MCV 89.0, MCH 28.6, MCHC 32.1, RDW Std Deviation 52.5 H, RDW Coeff of Mohsen 16.0 H, Plt Count 198, MPV 9.4, Immature Gran % (Auto) 3.200 H, Neut % (Auto) 76.1 H, Lymph % (Auto) 8.0 L, [place] % (Auto) 9.6, Eos % (Auto) 2.6, Baso % (Auto) 0.5, Absolute Neuts (auto) 4.9, Absolute Lymphs (auto) 0.52 L, Nucleated RBC % 0, Differential Comment SCANNED 12/24/21 06:21: POC Glucose 119 H Micro: Microbiology 12/20/21 09:31 Blood Culture (Wb) - Anticubital Left Blood Culture - Preliminary No growth in 48 hours. 12/20/21 09:40 Blood Culture (Wb) - Port Blood Culture - Preliminary No growth in 48 hours. 12/20/21 12:05 Urine, Clean Catch Urine Culture - Final Mixed Gram Positive Organisms Physical Exam Const alert and no apparent distress Constitutional Narrative: up in chair. Resp normal respiratory effort, no retractions, no use of accessory muscles and clear to auscultation bilaterally Cardio regular rate, regular rhythm, S1 normal heart sound and S2 normal heart sound GI GI Narrative: distended. hypoactive BS. tender Extremity normal to inspection Neuro Sensorium / Orientation: awake and alert Psych affect normal Assessment & Plan Assessment/Plan (1) Colon cancer: QUALIFIERS: Colon location: ascending Qualified Code(s): C18.2 - Malignant neoplasm of ascending colon (2) Malignant pleural effusion: PLAN: 1. abdominal pain ongoing EGD showed esophagitis and excess gastric fluid. NGT placed during procedure, since removed, but decline to have replaced. 2/2 omental caking, bowel obstruction. GABBY Montalvo. Friend, looks like compression of SB from the unlying CA S/P decompressive PEG on 12/23. Pt taking liquids, but not retaining as she is currently on Suction. Plan for home is to connect the PEG to bag for gravity drainage. consult nutrition for TPN. Will need to arrange for outpt TPN. 2. Hypokalemia ongoing replace mag normal 3. hypomagnesemia improved 4. stage IV colon cancer was to restart chemo this past Sunday. Pt interested in speaking with oncology about options. GABBY Coello who will discuss options to patient Pt understands she is undergoing palliative chemotherapy. Pt is already established with [facility] in [facility] 5. VTE prophylaxis: LMWH shelter prognosis guarded. Pertinent 40 minutes of which greater than 50% of time was discussing with the patient about the bowel obstruction, PEG tube, TPN, potential home management. We also discussed about getting oncology involved while she was here which she was amenable to. Part that time was also discussing with oncology and discussing the case with them. They will be in see the patient while she is here. Charges/Coding Visit Charges Inpatient E&M: 02200 Subs Hosp L3
[2021-12-24 12:16] LABS: Bedside Glucose 166 mg/dL (74-106)
[2021-12-24] MEDS: Potassium Chloride 10mEq/100mL 10 MEQ/100 ML IV.SOLN. 100 MEQ IV BOLUS ×4 (12:21→15:33)
--- NOTE | 2021-12-24 12:37 | CON.PCM.ON_ITS ---
Assessment & Plan Assessment/Plan (1) Colon cancer: Status: Acute Code(s): C18.9 - Malignant neoplasm of colon, unspecified Qualifiers: Colon location: ascending Qualified Code(s): C18.2 - Malignant neoplasm of ascending colon Plan: S/p 10 cycles of FOLFIRINOX 07/2021-11/22/21, now with progressive disease as evidenced by increasing left-sided pleural effusion, omental caking and reaccumulation of ascites, on CT scans of her abdomen and pelvis from 12/02/2021 and 12/20/2021. Care complicated by an obstruction. Etiology of sclerotic lesions questionable can investigate further upon discharge from hospital. 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 She is aware the goal of chemotherapy/targeted therapy is palliation. Written educational information was provided to the patient. (2) Malignant pleural effusion: Status: Chronic Code(s): J91.0 - Malignant pleural effusion (3) Anemia: Status: Acute Code(s): D64.9 - Anemia, unspecified Qualifiers: Anemia type: unspecified type Qualified Code(s): D64.9 - Anemia, unspecified Plan: Hemoglobin today 9.9, was 10.5 on presentation of the ER on 12/20/2021. Continue daily monitoring. (4) At high risk for venous thromboembolism (VTE): Status: Acute Code(s): Z91.89 - Other specified personal risk factors, not elsewhere classified Plan: Counseled on importance of ambulating as much as possible. Continue LMWH during admission. Reviewed signs symptoms of VTE she should report promptly. Case was discussed with Dr. Schwarz who was in agreement with aforementioned plan. Patient is instructed to follow-up with [facility] upon discharge. HPI Consult Data Date of Service:: 12/24/21 PCP / Referring Provider: [facility] Attending: Dr. eKv Mason DO Chief Complaint Chief Complaint: Metastatic colon cancer History of Present Illness History of Present Illness: Ms. Mónica James is a 51-year-old female diagnosed July 2021 with metastatic adenocarcinoma of the colon with malignant ascites, mesenteric nodules disease, pathologically proven disease in thoracic fluid, stage IV(cTx cNx M1c). She began palliative chemotherapy with FOLFIRINOX on 07/28/2021. She has experienced some treatment delays due to GI toxicity (mainly nausea but has not consistently been adherent to recommendations for as needed antiemetics) and respiratory infection. Per patient, elected brief holiday from chemotherapy, last infusion was 11/22/2021. CT chest abdomen and pelvis obtained on 12/02/2021 showed mild hepatomegaly, resolution of right-sided pleural effusion, increase in left-sided pleural effusion, resolution of ascites but recognition of sclerotic bone lesions involving thoracic and lumbar spine- indicating progressive disease. Patient was scheduled for ambulatory visit on 12/20/2021 to review these results and discuss second line therapy options. However, patient presented to [facility] ED instead that morning with complaints of nausea vomiting and worsening chronic abd pain involving LUQ. CT abdomen and pelvis obtained in the ED showed worsening of bowel thickening throughout the ascending and transverse colon, omental metastasis present but no cherise obstruction on the CT. Patient was admitted for monitoring as she had gone 5 days previous without producing a BM. Ms. James underwent EGD on 12/21/2021 under the care of Dr. Morfin. Esophagitis and excess gastric fluid was noted in report. A NGT was placed during procedure (since has been removed). A decompressive PEG was later placed on 12/23/2021. Receiving TPN. Upon entering the room, the patient is sitting upright in bed conversing with mother and friend at the bedside. Advanced Directives Power of Remote Recruiter: Yes Living Will: Yes [facility] Medical History (Updated 12/24/21 @ 12:49 by Suzi Coello CARD PUNCHING MACHINE OPERATOR, CARD PUNCHING MACHINE OPERATOR-C) Anemia Anxiety and depression At high risk for deep venous thrombosis At high risk for venous thromboembolism (VTE) Back pain Chronic cough Colon cancer Dehydration DVT (deep venous thrombosis) Elevated serum creatinine Encounter for adjustment and management of vascular access device Encounter for chemotherapy management Former tobacco use GERD (gastroesophageal reflux disease) Heart burn History of steroid therapy Hypokalemia Hypomagnesemia Left leg pain Malignant ascites Migraine headache Morbid obesity Nausea & vomiting Oral candidiasis Post-menopausal Shortness of breath on exertion Wears dentures Wears glasses Weight loss Home Medications buspirone 10 mg PO BID 06/13/21 [History Last Taken 12/19/21] escitalopram oxalate 20 mg PO DAILY 06/13/21 [History Last Taken 12/19/21] apixaban [Eliquis] 5 mg PO BID #49 tab 07/28/21 [Rx Last Taken 12/19/21] lidocaine-prilocaine 2.5 %-2.5 % topical cream 1 applic TOPICAL ONCE PRN 30 Days #30 g 07/28/21 [Rx Last Taken Unknown] prochlorperazine maleate 5 mg tablet 5 mg PO TID PRN #30 tab 08/01/21 [Rx Last Taken Unknown] sennosides 8.6 mg tablet 8.6 mg PO BID #60 tab 08/01/21 [Rx Last Taken 12/18/21] omeprazole 40 mg capsule,delayed release 40 mg PO DAILY #90 cap 10/07/21 [Rx Last Taken 12/19/21] hydrocodone-acetaminophen 5-325mg 5mg-325mg 1 tab PO Q6H PRN 10/11/21 [History Last Taken 12/20/21] methadone 5 mg tablet 5 mg PO BID tab 10/25/21 [History Last Taken 12/19/21] dicyclomine 20 mg tablet 20 mg PO BID #60 tab 11/04/21 [Rx Last Taken 12/19/21] ondansetron 8 mg disintegrating tablet 8 mg PO Q8H PRN #30 tab 11/04/21 [Rx Last Taken Unknown] scopolamine base 1 mg over 3 days transdermal patch 1 patch TRANSDERMAL Q3D PRN #10 ea 11/04/21 [Rx Last Taken 12/18/21] haloperidol 1 mg PO BID #4 tab 12/19/21 [Rx Last Taken 12/18/21] Allergy/AdvReac Type Severity Reaction Status Date / Time No Known Allergies Allergy Verified 12/20/21 08:55 Family History Father Diabetes Mother Hypertension Brother Hypertension Surgical History History of cholecystectomy (~06/2021) S/P section S/P rotator cuff repair Social History household members: family Smoking Status: Former smoker how long ago did patient quit smoking: Quit 2 years prior, smoked 1/2 ppd since she was a teenager until quitting. alcohol intake: never substance use type: does not use ROS Constitutional Constitutional: Reports fatigue and weakness; Denies change in weight, chills or fever(s) Cardiovascular Cardiovascular: Denies chest pain, edema, lightheadedness, palpitations or syncope Respiratory/Chest Respiratory/Chest: Denies cough, dyspnea, productive cough, shortness of breath at rest, shortness of breath with exertion or wheezing Gastrointestinal Gastrointestinal: Reports abdominal pain, constipation, nausea and vomiting; Denies diarrhea Genitourinary Genitourinary: Denies burning urination, difficulty urinating, dysuria, hematuria, urinary frequency, urinary incontinence or urinary urgency Musculoskeletal Musculoskeletal: Denies back pain, joint pain or muscle weakness Integumentary Integumentary: Denies erythema, lesions, rash or wounds Neurologic Neurologic: Denies abnormal speech, confusion, dizziness, focal weakness, numbness, paresthesias, seizure-like activity or syncope Psychiatric Psychiatric: Reports anxiety and depression Hematologic/Lymphatic Hematologic/Lymphatic: Denies easy bleeding or easy bruising Allergic/Immunologic Allergic/Immunologic: Denies hives or asthma Physical Exam Narrative ECOG 2-3 Const alert and no apparent distress Constitutional Narrative: up in chair. Eyes conjunctivae normal and no scleral icterus Neck full ROM and no lymphadenopathy Resp normal respiratory effort and clear to auscultation bilaterally Cardio regular rate, regular rhythm, S1 normal heart sound and S2 normal heart sound GI GI Narrative: distended. hypoactive BS. Tender throughout. PEG tube LUQ. Back/Spine no thoracic nor lumbar tenderness Extremity normal to inspection Skin no jaundice and no petechiae Neuro Sensorium / Orientation: awake and alert Psych affect normal Attitude: calm and engaged Vital Signs Temperature 98.6 F 12/24/21 07:40 Temperature Source Oral 12/24/21 07:40 Pulse Rate 82 12/24/21 07:40 Pulse Strength Normal (2+) 12/24/21 10:00 Respiratory Rate 18 12/24/21 07:40 Respiratory Effort Non-Labored 12/24/21 08:30 Respiratory Depth Normal 12/24/21 08:30 Respiratory Pattern Normal 12/24/21 08:30 Blood Pressure 126/73 H 12/24/21 07:40 Blood Pressure Mean 90 12/24/21 07:40 Blood Pressure Source Monitor 12/24/21 07:40 Blood Pressure Position Semi-Fowlers 12/24/21 07:40 Blood Pressure Location Left Arm 12/24/21 07:40 Baseline BP 119/85 12/23/21 20:10 Pulse Ox 95 12/24/21 07:40 Oxygen Delivery Method Room Air 12/24/21 08:30 Oxygen Flow Rate (L/min) 3 12/21/21 12:58 Laboratory Results - last 24 hr 12/23/21 17:33: POC Glucose 92 12/24/21 00:07: POC Glucose 113 H 12/24/21 05:40: Sodium 136, Potassium 3.2 L, Chloride 100, Carbon Dioxide 29.0, Anion Gap 7, BUN 12, Creatinine 0.45 L, Estim Creat Clear Calc 127.72, Est GFR (MDRD) Af Amer 189, Est GFR (MDRD) Non-Af 156, BUN/Creatinine Ratio 26.7 H, Glucose 116 H, Calcium 7.8 L, Phosphorus 2.8, Magnesium 1.7, Total Bilirubin 0.20, AST 17, ALT 11 L, Alkaline Phosphatase 132 H, Total Protein 5.7 L, Albumin 1.6 L, Globulin 4.1, Albumin/Globulin Ratio 0.4 L 12/24/21 05:40: WBC 6.5, RBC 3.46 L, Hgb 9.9 L, Hct 30.8 L, MCV 89.0, MCH 28.6, MCHC 32.1, RDW Std Deviation 52.5 H, RDW Coeff of Mohsen 16.0 H, Plt Count 198, MPV 9.4, Immature Gran % (Auto) 3.200 H, Neut % (Auto) 76.1 H, Lymph % (Auto) 8.0 L, [place] % (Auto) 9.6, Eos % (Auto) 2.6, Baso % (Auto) 0.5, Absolute Neuts (auto) 4.9, Absolute Lymphs (auto) 0.52 L, Nucleated RBC % 0, Differential Comment SCANNED 12/24/21 06:21: POC Glucose 119 H 12/24/21 12:09: POC Glucose 166 H Diagnostic Data Chest X-Ray 12/20/21 10:00 IMPRESSION: Increasing left pleural effusion with left basilar infiltration and/or atelectasis. Electronically Signed: Carlitos Roberts MD at 10:32 EDT , KUB X-Ray 12/22/21 09:37 IMPRESSION: The tip of the nasogastric tube is in the body of the stomach. Left pleural effusion with left basilar atelectasis and/or infiltrate. Electronically Signed: Carlitos Roberts MD at 9:59 EDT , Abdomen/Pelvis CT 12/22/21 18:01 IMPRESSION: No change from prior study on 12/20/2021. Electronically Signed: Desmond Anderson MD at 20:42 EDT ,
[2021-12-24 14:17] VITALS: BP 118/86; PULSE 93; RESP 16; TEMP 36.6; O2SAT 93
[2021-12-24] MEDS: 0.9% Saline Lock 10 ML Syringe IV ×3 (14:22→21:22)
[2021-12-24] MEDS: 0.9% Normal Saline 1,000 ML 75 ML IV (14:27)
[2021-12-24] MEDS: TPN - Clinimix E 8%-14% Soln 2,000 ML with Multivitamins 10 ML, Trace Elements 1 ML, Fo... 84 ML IV (16:29)
[2021-12-24 18:17] VITALS: BP 121/70; PULSE 105; RESP 18; TEMP 36.9; O2SAT 95
[2021-12-24 18:45] LABS: Bedside Glucose 143 mg/dL (74-106)
[2021-12-24] MEDS: Ondansetron 4 MG/2 ML Vial IV (21:22)
--- NOTE | 2021-12-24 22:32 | NURSING ---
PT RESTING QUIETLY IN BED WITH EYES CLOSED, RESP EASY
[2021-12-25] VITALS (8 sets, daily range): BP systolic 112–137; BP diastolic 74–85; PULSE 97–107; RESP 16–18; TEMP 36.9–37.7; O2SAT 92–94
[2021-12-25] MEDS: proCHLORPERazine 10 MG/2 ML Vial 5 MG IV ×5 (00:31→20:03)
[2021-12-25] MEDS: Morphine 2 MG/ML Syringe IV ×7 (00:31→23:27)
[2021-12-25] MEDS: 0.9% Saline Lock 10 ML Syringe IV ×3 (00:32→06:54)
[2021-12-25 00:56] LABS: Bedside Glucose 136 mg/dL (74-106)
[2021-12-25] MEDS: Scopolamine 1mg/72hr Patch 1 PATCH TD (03:34)
[2021-12-25] MEDS: 0.9% Normal Saline 1,000 ML 75 ML IV ×2 (03:38→16:12)
[2021-12-25] MEDS: Enoxaparin 40 MG/0.4 ML Syringe SC (06:11)
[2021-12-25 06:46] LABS: Absolute Lymphocyte Count 0.76 X10^3/uL (0.83-4.51); Basophil# 0.05 X10^3/uL; Basophil% 0.6 % (0-1); Eosinophil# 0.16 X10^3/uL; Hematocrit 32.1 % (37-47); Hemoglobin 10.4 g/dL (12.0-15.0); Lymphocyte # 0.76 X10^3/ul (0.83-4.51); Lymphocyte % 9.6 % (19-41); Mean Corp Hgb Conc 32.4 g/dL (32-36); Mean Corpuscular Hgb 29.1 pg (27.0-32.0); Mean Corpuscular Volume 89.9 fL (81-99); Mean Platelet Vol. 9.6 fl (6.2-12.0); Monocyte# 0.81 X10^3/uL; Monocyte% 10.3 % (0-10); NRBC Flagged by Analyzer 0 % (0-5); Neutrophil # 5.96 X10^3/uL (2.7-7.7); Neutrophil % 75.7 % (47-70); Platelet Count 205 K/mm3 (150-450); RBC Distribution Width CV 16.1 % (11.6-14.6); RBC Distribution Width SD 53.1 fl (35.1-43.9); Red Blood Count 3.57 M/mm3 (4.2-5.4); White Blood Count 7.9 K/mm3 (4.4-11.0)
[2021-12-25 07:11] LABS: ALB/GLOB Ratio 0.4 RATIO (0.9-2.4); AST(SGOT) 18 U/L (15-37); Alanine Aminotransfer ALT/SGPT 12 U/L (13-56); Albumin, Serum 1.6 g/dL (3.2-5.0); Alkaline Phosphatase 131 U/L (45-117); Anion Gap 6 (5-15); BUN 18 mg/dL (7-18); BUN/Creat Ratio 38.8 RATIO (10-20); Calcium,Total 8.2 mg/dL (8.5-10.1); Chloride 101 mmol/L (98-107); Creatinine, Serum 0.46 mg/dL (0.55-1.02); EST Glomerular Filtration Rate 151 mL/min (>60); Est Glom Filt Rate - Afr Amer 182 mL/min (>60); Estimated Creatinine Clearance 124.94 ml/min; Globulin 4.4 g/dL (2.2-4.2); Glucose 112 mg/dL (74-106); Magnesium 1.5 mg/dL (1.6-2.6); Phosphorus 2.6 mg/dL (2.5-4.9); Potassium 3.8 mmol/L (3.5-5.1); Sodium Level 136 mmol/L (136-145)
[2021-12-25] MEDS: fentaNYL 25 MCG Patch TD (10:06)
[2021-12-25] MEDS: morphine (oral solution) 10MG/0.5ML Syringe 10 MG SL (10:07)
[2021-12-25] MEDS: busPIRone 5 MG Tablet 10 MG PO ×2 (10:11→21:16)
[2021-12-25] MEDS: Escitalopram Oxalate 20 MG Tablet PO (10:12)
[2021-12-25] MEDS: Senna Tablet 1 TABLET PO ×2 (10:12→21:16)
[2021-12-25] MEDS: Pantoprazole Sodium 40 MG Tablet PO (10:13)
--- NOTE | 2021-12-25 10:15 | PCM.PN.HOSP ---
Subjective Subjective Feels pain medications do not help her sufficiently sugar with the IV morphine. Is anxious to go home. Objective Data Objective Data Vital Signs: Vital Signs Temp Pulse Resp BP Pulse Ox 37.7 C H 107 H 16 127/81 H 93 12/25/21 07:58 12/25/21 07:58 12/25/21 07:58 12/25/21 07:58 12/25/21 07:58 Oxygen Flow Rate (L/min) 3 Oxygen Delivery Method Room Air Weight: 87.628 kg Body Mass Index (BMI) 32.9 Intake & Output: Intake and Output for Last 24 Hours 12/23/21 12/24/21 12/25/21 23:59 23:59 23:59 Intake Total 2464.65 / 2464.65 3903.1 / 4133.1 1668.75 / 1668.75 Output Total 1700 / 1700 3700 / 4350 1950 / 1950 Balance 764.65 / 764.65 203.1 / -216.9 -281.25 / -281.25 Medical Nutrition Assessment Dietitian: Malnutrition Criteria Met Start: 12/21/21 15:59 Freq: Status: Active Protocol: Document 12/24/21 11:17 AG (Rec: 12/24/21 11:17 [id number]) Nutrition Malnutrition Evidence of Malnutrition Exists Yes Malnutrition (severe): Acute Illness/Injury Evidenced By Suboptimal Energy Intake ( Severe),Weight Loss (Severe) Intake Problem Inadequate Oral Intake Etiology related to altered GI function /bowel obstruction Signs/Symptoms as evidenced by NPO x 4 days Status Active Problem Clinical Problem Acute Disease or Injury Related Malnutrition Etiology Severe protein-calorie malnutrition in the context of acute illness related to altered GI function and inadequate oral intake Signs/Symptoms as evidenced by wt loss ~10-12 % x 3 months, poor oral intake meeting less than 50% estimated nutrition needs x past 2-3 weeks Status Active Problem Recommendation Dietitian Recommendations/Changes 1.) TPN day #2: 2 L Clinimix 8 % amino acid/14% dextrose @ 84ml/hr with electrolytes, folic acid, MVI and trace elements to provide 1593 kcal, 280 gm dextrose and 160 gm protein per day. TPN will meet ~75% estimated calorie and ~100% estimated protein needs. 2.) Continue daily weights 3.) Continue monitoring of labs/electrolytes Lab / Micro Data Result Diagrams: 12/25/21 06:26 12/25/21 06:26 Labs: Laboratory Results - last 24 hr 12/24/21 12:09: POC Glucose 166 H 12/24/21 18:31: POC Glucose 143 H 12/25/21 00:29: POC Glucose 136 H 12/25/21 06:26: Sodium 136, Potassium 3.8, Chloride 101, Carbon Dioxide 29.0, Anion Gap 6, BUN 18, Creatinine 0.46 L, Estim Creat Clear Calc 124.94, Est GFR (MDRD) Af Amer 182, Est GFR (MDRD) Non-Af 151, BUN/Creatinine Ratio 38.8 H, Glucose 112 H, Calcium 8.2 L, Phosphorus 2.6, Magnesium 1.5 L, Total Bilirubin 0.20, AST 18, ALT 12 L, Alkaline Phosphatase 131 H, Total Protein 6.0 L, Albumin 1.6 L, Globulin 4.4 H, Albumin/Globulin Ratio 0.4 L 12/25/21 06:26: WBC 7.9, RBC 3.57 L, Hgb 10.4 L, Hct 32.1 L, MCV 89.9, MCH 29.1, MCHC 32.4, RDW Std Deviation 53.1 H, RDW Coeff of Mohsen 16.1 H, Plt Count 205, MPV 9.6, Immature Gran % (Auto) 1.800 H, Neut % (Auto) 75.7 H, Lymph % (Auto) 9.6 L, [place] % (Auto) 10.3 H, Eos % (Auto) 2.0, Baso % (Auto) 0.6, Absolute Neuts (auto) 6.0, Absolute Lymphs (auto) 0.76 L, Nucleated RBC % 0 Micro: Microbiology 12/20/21 09:40 Blood Culture (Wb) - Port Blood Culture - Final No growth in 5 days. 12/20/21 09:31 Blood Culture (Wb) - Anticubital Left Blood Culture - Final No growth in 5 days. 12/20/21 12:05 Urine, Clean Catch Urine Culture - Final Mixed Gram Positive Organisms Physical Exam Const alert Constitutional Narrative: Up at the side of the bed in no distress. Resp normal respiratory effort, no retractions, no use of accessory muscles and clear to auscultation bilaterally Cardio regular rate, regular rhythm, S1 normal heart sound and S2 normal heart sound GI non-tender GI Narrative: slightly distended. Neuro Sensorium / Orientation: awake and alert Psych affect normal Assessment & Plan Assessment/Plan (1) Colon cancer: QUALIFIERS: Colon location: ascending Qualified Code(s): C18.2 - Malignant neoplasm of ascending colon (2) Malignant pleural effusion: PLAN: 1. abdominal pain ongoing, but improved EGD showed esophagitis and excess gastric fluid. NGT placed during procedure, since removed, but decline to have replaced. 2/2 omental caking, bowel obstruction. DW Dr. Friend, looks like compression of SB from the unlying CA S/P decompressive PEG on 12/23. Pt taking liquids, but not retaining as she is currently on Suction. Plan for home is to connect the PEG to bag for gravity drainage. consult nutrition for TPN. Will need to arrange for outpt TPN. We will modify her pain medications. Discontinue methadone, start fentanyl patch, Roxanol. Make future adjustments accordingly. 2. Hypokalemia improved 3. hypomagnesemia improved 4. stage IV colon cancer was to restart chemo this past Sunday. Pt interested in speaking with oncology about options. Pt understands she is undergoing palliative chemotherapy. Pt is already established with [facility] palliative care services in [facility] Pt met with Tram Coello on the , she will follow about reinitiating chemotherapy 5. VTE prophylaxis: LMWH 6. Disposition: TBD home with HHC. Will need to have TPN approval and HHC set up. Pt is familiar with working TPN (her daughter had been on it at one point). GABBY nutrition today and they will need to be involved in outpt management. [facility] prognosis guarded. Charges/Coding Visit Charges Inpatient E&M: 09237 Subs Hosp L2
[2021-12-25 11:45] LABS: Bedside Glucose 123 mg/dL (74-106)
[2021-12-25] MEDS: TPN - Clinimix E 8%-14% Soln 2,000 ML with Multivitamins 10 ML, Trace Elements 1 ML, Fo... 84 ML IV (16:05)
[2021-12-25 18:50] LABS: Bedside Glucose 124 mg/dL (74-106)
[2021-12-25 18:50] LABS: Bedside Glucose 110 mg/dL (74-106)
[2021-12-25] MEDS: Polyethylene Glycol 3350 17 GM PACKET PO (21:16)
[2021-12-25 23:40] LABS: Bedside Glucose 104 mg/dL (74-106)
[2021-12-26] MEDS: Morphine 2 MG/ML Syringe IV ×6 (04:15→21:37)
[2021-12-26] MEDS: proCHLORPERazine 10 MG/2 ML Vial 5 MG IV ×5 (04:15→21:37)
[2021-12-26 04:20] VITALS: BP 122/86; PULSE 115; RESP 18; TEMP 36.8; O2SAT 92
[2021-12-26] MEDS: Enoxaparin 40 MG/0.4 ML Syringe SC (05:40)
[2021-12-26] MEDS: 0.9% Normal Saline 1,000 ML 75 ML IV (05:40)
--- NOTE | 2021-12-26 05:55 | NURSING ---
This RN walked into patients room during this time and noticed bright red drainage coming from peg tubing flowing to canister. Patient stated she just ate a red jello. This RN instructed patient no red jello's. MANAGER APPLICATION also informed.
[2021-12-26 05:56] LABS: Bedside Glucose 106 mg/dL (74-106)
[2021-12-26 06:31] LABS: ALB/GLOB Ratio 0.4 RATIO (0.9-2.4); AST(SGOT) 24 U/L (15-37); Alanine Aminotransfer ALT/SGPT 13 U/L (13-56); Albumin, Serum 1.6 g/dL (3.2-5.0); Alkaline Phosphatase 189 U/L (45-117); Anion Gap 5 (5-15); BUN 21 mg/dL (7-18); BUN/Creat Ratio 41.8 RATIO (10-20); Calcium,Total 8.2 mg/dL (8.5-10.1); Chloride 102 mmol/L (98-107); EST Glomerular Filtration Rate 137 mL/min (>60); Est Glom Filt Rate - Afr Amer 166 mL/min (>60); Estimated Creatinine Clearance 114.95 ml/min; Globulin 4.4 g/dL (2.2-4.2); Glucose 106 mg/dL (74-106); Magnesium 1.6 mg/dL (1.6-2.6); Potassium 3.6 mmol/L (3.5-5.1); Sodium Level 137 mmol/L (136-145)
--- NOTE | 2021-12-26 07:35 | PCM.PN.HOSP ---
Subjective Subjective Patient is a 51-year-old lady with history of metastatic colon cancer who presented with abdominal pain constipation nausea and vomiting. CT of the abdomen and pelvis obtained on admission demonstrated progressive thickening of the ascending colon with findings suggestive of omental metastasis, left pleural effusion with left basilar infiltration/atelectasis and mild right basilar atelectasis. Admitted to regular nursing floor for further management Objective Data Objective Data Vital Signs: Vital Signs Temp Pulse Resp BP Pulse Ox 98.2 F 115 H 18 122/86 H 92 12/26/21 04:20 12/26/21 04:20 12/26/21 04:20 12/26/21 04:20 12/26/21 04:20 Oxygen Flow Rate (L/min) 3 Oxygen Delivery Method Room Air Weight: 88.6 kg Body Mass Index (BMI) 32.9 Intake & Output: Intake and Output for Last 24 Hours 12/24/21 12/25/21 12/26/21 23:59 23:59 23:59 Intake Total 3903.1 / 4133.1 6582.45 / 6582.45 1610 / 1610 Output Total 3700 / 4350 6550 / 6550 1175 / 1175 Balance 203.1 / -216.9 32.45 / 32.45 435 / 435 Medical Nutrition Assessment Dietitian: Malnutrition Criteria Met Start: 12/21/21 15:59 Freq: Status: Active Protocol: Document 12/25/21 11:23 RMA (Rec: 12/25/21 11:23 RMA [id number]) Nutrition Malnutrition Evidence of Malnutrition Exists Yes Malnutrition (severe): Acute Illness/Injury Evidenced By Suboptimal Energy Intake ( Severe),Weight Loss (Severe) Intake Problem Inadequate Oral Intake Etiology related to altered GI function /bowel obstruction Signs/Symptoms as evidenced by NPO x 4 days Status Resolved Problem Clinical Problem Acute Disease or Injury Related Malnutrition Etiology Severe protein-calorie malnutrition in the context of acute illness related to altered GI function and inadequate oral intake Signs/Symptoms as evidenced by wt loss ~10-12 % x 3 months, poor oral intake meeting less than 50% estimated nutrition needs x past 2-3 weeks Status Active Problem Recommendation Dietitian Recommendations/Changes 1.) TPN day #3 ordered today: will continue 2 L Clinimix 8% amino acid/14% dextrose @ 84ml /hr with electrolytes, folic acid, MVI and trace elements to provide 1593 kcal, 280 gm dextrose and 160 gm protein per day. TPN will meet ~75% estimated calorie and ~100% estimated protein needs. 2.) No lipids today; Will order lipids sunday, sunday , sunday. 3.) Continue daily weights. 4.) Continue monitoring of labs/electrolytes. 5.) Full liquid diet for pleasure as tolerated. 6.) Spoke to Dr. Mason today regarding need for homegoing TPN; will work with case management. Lab / Micro Data Result Diagrams: 12/25/21 06:26 12/26/21 05:22 Labs: Laboratory Results - last 24 hr 12/25/21 06:24: POC Glucose 124 H 12/25/21 11:39: POC Glucose 123 H 12/25/21 18:47: POC Glucose 110 H 12/25/21 23:35: POC Glucose 104 12/26/21 05:22: Sodium 137, Potassium 3.6, Chloride 102, Carbon Dioxide 30.0, Anion Gap 5, BUN 21 H, Creatinine 0.50 L, Estim Creat Clear Calc 114.95, Est GFR (MDRD) Af Amer 166, Est GFR (MDRD) Non-Af 137, BUN/Creatinine Ratio 41.8 H, Glucose 106, Calcium 8.2 L, Phosphorus 3.0, Magnesium 1.6, Total Bilirubin 0.20, AST 24, ALT 13, Alkaline Phosphatase 189 H, Total Protein 6.0 L, Albumin 1.6 L, Globulin 4.4 H, Albumin/Globulin Ratio 0.4 L 12/26/21 05:46: POC Glucose 106 Micro: Microbiology 12/20/21 09:40 Blood Culture (Wb) - Port Blood Culture - Final No growth in 5 days. 12/20/21 09:31 Blood Culture (Wb) - Anticubital Left Blood Culture - Final No growth in 5 days. 12/20/21 12:05 Urine, Clean Catch Urine Culture - Final Mixed Gram Positive Organisms Physical Exam Narrative GENERAL: cooperative HEENT: Atraumatic; EYES; Anicteric, Normal Conjunctiva NECK; supple, normal thyroid, RESPIRATORY: Diminished to auscultation CARDIOVASCULAR: Regular S1 S2, GI: soft, normoactive bowel sounds,, PEG tube in place : No Renal angle tenderness; EXTREMITIES: No edema, no clubbing, MUSCULOSKELETAL: no muscle wasting NEURO: Awake; no lateralizing signs. SKIN: No Rash PSYCH; Flat affect Assessment & Plan Assessment/Plan (1) Colon cancer: QUALIFIERS: Colon location: ascending Qualified Code(s): C18.2 - Malignant neoplasm of ascending colon (2) Malignant pleural effusion: PLAN: Patient is a 51-year-old lady with history of metastatic colon cancer who presented with abdominal pain constipation nausea and vomiting. CT of the abdomen and pelvis obtained on admission demonstrated progressive thickening of the ascending colon with findings suggestive of omental metastasis, left pleural effusion with left basilar infiltration/atelectasis and mild right basilar atelectasis. Admitted to regular nursing floor for further management 1. Abdominal pain ? CT on admission did show progressive thickening of the ascending colon with findings suggestive of omental metastasis. Consult was placed to GI patient was seen by Dr. Morfin who did perform EGD demonstrating esophagitis and duodenitis and excess gastric fluid. Patient had a removable PEG tube placed. 2. Severe protein calorie malnutrition ? As evidenced by suboptimal energy intake and severe weight loss this is related to patient underlying metastatic colon cancer. Consult was placed to dietitian. TPN was recommended which has been initiated. Plan is for patient to be discharged home once case management is able to arrange for TPN to be administered at home 3. Stage IV: CA ? Patient currently being managed and followed by oncology 4. Depression with anxiety ? Patient is on escitalopram as well as buspirone 5. Class I obesity with BMI of 33.5 ? Weight loss advised 6. Hypokalemia ? Corrected per protocol 7. Hypomagnesemia -corrected per protocol 8. History of previous DVT/PE ? On Eliquis held for patient's procedure 9. DVT prophylaxis ? Enoxaparin Charges/Coding Visit Charges Inpatient E&M: 86808 Subs Hosp L2
[2021-12-26] MEDS: Senna Tablet 1 TABLET PO ×2 (09:03→21:38)
[2021-12-26] MEDS: busPIRone 5 MG Tablet 10 MG PO ×2 (09:04→21:38)
[2021-12-26] MEDS: Escitalopram Oxalate 20 MG Tablet PO (09:04)
[2021-12-26] MEDS: Polyethylene Glycol 3350 17 GM PACKET PO ×2 (09:04→21:38)
[2021-12-26] MEDS: Pantoprazole Sodium 40 MG Tablet PO (09:05)
[2021-12-26] MEDS: 0.9% Saline Lock 10 ML Syringe IV ×3 (09:15→18:10)
[2021-12-26 09:25] VITALS: BP 101/80; PULSE 124; RESP 18; TEMP 36.8; O2SAT 94
--- NOTE | 2021-12-26 10:20 | CASEMGMT ---
Addendum entered by Sally Hurtado 12/26/21 13:23: Notified Linda at [facility] to cancel referral as well as Magali at [facility]. Addendum entered by Sally Hurtado 12/26/21 13:20: TC back to [facility], spoke with Cee, she received message from Alysha BARONE who states that she has not seen pt since May of last year and is not able to follow for TPN. Updated hospitalist. Addendum entered by Sally Hurtado 12/26/21 10:37: TC to [facility], spoke with Cee. She states that typically they do not follow TPN. She will check with DIRECTOR OF INSTRUCTION Alysha and call this RN AMY back. Addendum entered by Sally Hurtado 12/26/21 10:33: TC to 's nurse Kaleigh. She spoke with . He is not willing to manage pt TPN in the home. This is not typically something he does. Provided her info on reason listed for TPN. Original Note: RN AMY in to pt room. Discussed dc planning with pt and the need for TPN. Patient was provided a list of HHC/DME providers including quality and resource use data and consistent with the patient?s preferred geographic region, medical needs, and insurance network. The patient?s preferred provider is [facility], and [place]. Pt chooses [facility] for Infusion supplies. TC to Linda at [facility], faxed referral information. Primary Care Physician to review. TC to [facility], left message with Magali intake for referral. Will await returned call. Pt states she goes to the [facility] but does not go very often. She also states that she sees .
--- NOTE | 2021-12-26 12:05 | CT_ITS ---
INDICATION: bowel obstruction EXAMINATION: CT ABDOMEN AND PELVIS WITH CONTRAST - CT Abdomen And Pelvis W/ Contrast Injection TECHNIQUE: Helically acquired images were obtained of the abdomen and pelvis following IV contrast. A radiation dose optimization technique was used for this scan. IV Contrast dosage and agent: Oral contrast: None. COMPARISON: None. FINDINGS: Percutaneous gastrostomy tube visualized in the stomach. Surgical clips visualized in the pelvis suggestive of bilateral loop in tube clips. LOWER CHEST: Bilateral lower lobe consolidations and pleural effusion more prominent on the right, hilar mediastinal lymphadenopathy visualized multiple prominent in the right hilar region and there is a soft tissue density visualized on axial series measuring 2.2 x 1.7 cm. No cardiomegaly or pericardial effusion. Axillary lymphadenopathy visualized more prominent on the right seen on axial series 2 image 1 LIVER: Homogeneous. No focal mass. GALLBLADDER AND BILIARY TREE: The gallbladder is well visualized, surgically absent.. No intra- or extrahepatic biliary ductal dilation. PANCREAS: No focal cystic or solid mass. SPLEEN: Normal size without focal cystic or solid mass. ADRENAL GLANDS: 2 cm left adrenal gland lesion demonstrates heterogeneous enhancement. Seen on axial series 2 image 43. KIDNEYS AND URETERS: Normal renal size and position. No hydronephrosis. PERITONEUM: Stranding of the peritoneal fat planes is visualized most prominent in the anterior superior peritoneum is a buckling of the peritoneal fat planes, would recommend further evaluation to rule out the omental caking. BOWEL: A focal low-attenuation collections visualized surrounding the fundus of the stomach, this could be related to the gastrostomy tube given the proximity seen on axial series 2 image 55 would recommend contrast injection the gastrostomy tube to evaluate for leakage. Thickening of the wall of the distal small bowel with stranding of the fat planes is visualized. Marked thickening of the wall of the ascending colon is seen most prominent in the hepatic flexure visualized on coronal series 601 image 65. Overlying bowel visualized in the ascending colon and the rectum seen on axial series 2 image 114. Stranding of the peritoneal fat planes is visualized. LYMPH NODES: Scattered subtle peritoneal lymphadenopathy is visualized. Prominent bilateral inguinal lymphadenopathy is seen, subtle iliac chain lymph nodes are seen. VESSELS: Scattered calcifications visualized in the abdominal aorta,, no evidence of aneurysmal dilatation or arterial dissection is seen. Suggestion of a prominent right hemiazygos vein is seen. URINARY BLADDER: Unremarkable. REPRODUCTIVE ORGANS: Anteverted uterus visualized, stranding of the pelvic fat planes. Suboptimal evaluation due to adjacent stranding. Prominence of bilateral ovaries more prominent on the left suboptimally visualized. ABDOMINAL WALL: No discrete abdominal or pelvic wall hernia. BONES: Multiple sclerotic bone lesions visualized seen throughout the lumbar spine and in the pelvic bones the largest of which is seen in the posterior inferior aspect of the L1 vertebral body measuring 1.2 x 0.8 cm seen on axial series 2 image 50. Degenerative changes of the lumbar spine visualized. CT/Abdomen/Pelvis WITH Contrast IMPRESSION: Axillary lymphadenopathy. Hilar mediastinal lymphadenopathy. Bilateral lung consolidations or pleural effusions more prominent on the left. Demonstrate increase in comparison to the prior study. Fluid collection visualized surrounding the fundus of the stomach. Demonstrates increase in comparison to the prior study. Stranding of the peritoneal fat planes would recommend further evaluation to rule out omental caking. Left adrenal mass. Suboptimal evaluation of the uterus and ovaries. Extensive sclerotic bone lesions visualized. Bilateral inguinal lymphadenopathy is seen. Multiple areas of bowel wall thickening visualized but no evidence of obstruction or bowel dilation is seen. Electronically Signed: Juno Tracy MD at 16:20 EDT Reading Location ID and State: [facility] / [place] Tel , Service support ,
[2021-12-26 15:30] VITALS: BP 115/76; PULSE 114; RESP 18; TEMP 37.1; O2SAT 93
[2021-12-26] MEDS: TPN - Clinimix E 8%-14% Soln 2,000 ML with Multivitamins 10 ML, Trace Elements 1 ML, Fo... 84 ML IV (16:24)
[2021-12-26] MEDS: Fat Emulsions 20% 250 ML IV (16:46)
--- NOTE | 2021-12-26 16:52 | PCM.PROGNOTE ---
Subjective Subjective She had about 4.5 L out in the last 24 hours from her NG tube for decompression with a set on low intermittent suction. Objective Data Objective Data Vital Signs: Vital Signs Temp Pulse Resp BP Pulse Ox 98.3 F 124 H 18 101/80 94 12/26/21 09:25 12/26/21 09:25 12/26/21 09:25 12/26/21 09:25 12/26/21 09:25 Oxygen Flow Rate (L/min) 3 Oxygen Delivery Method Room Air Weight: 195 lb 5.273 oz Body Mass Index (BMI) 32.9 Intake & Output: Intake and Output for Last 24 Hours 12/24/21 12/25/21 12/26/21 23:59 23:59 23:59 Intake Total 3903.1 / 4133.1 6582.45 / 6582.45 2180 / 2180 Output Total 3700 / 4350 6550 / 6550 2875 / 2875 Balance 203.1 / -216.9 32.45 / 32.45 -695 / -695 Medical Nutrition Assessment Dietitian: Malnutrition Criteria Met Start: 12/21/21 15:59 Freq: Status: Active Protocol: Document 12/26/21 12:24 SLA (Rec: 12/26/21 12:24 [facility] [id number]) Nutrition Malnutrition Evidence of Malnutrition Exists Yes Malnutrition (severe): Acute Illness/Injury Evidenced By Suboptimal Energy Intake ( Severe),Weight Loss (Severe) Intake Problem Inadequate Oral Intake Etiology related to altered GI function /bowel obstruction Signs/Symptoms as evidenced by NPO x 4 days Status Resolved Problem Clinical Problem Acute Disease or Injury Related Malnutrition Etiology Severe protein-calorie malnutrition in the context of acute illness related to altered GI function and inadequate oral intake Signs/Symptoms as evidenced by wt loss ~10-12 % x 3 months, poor oral intake meeting less than 50% estimated nutrition needs x past 2-3 weeks Status Active Problem Recommendation Dietitian Recommendations/Changes 1.) TPN day #4ordered today: will continue 2 L Clinimix 8% amino acid/14% dextrose @ 84ml /hr with electrolytes, folic acid, MVI and trace elements with the addition of 250 ml 20 % lipids to provide 2093 kcal, 280 gm dextrose and 160 gm protein per day. 2.) Will order lipids today w/ plan for sunday, sunday, sunday. 3.) Continue daily weights. 4.) Continue monitoring of labs/electrolytes. 5.) Full liquid diet for pleasure as tolerated. 6.) Spoke to Dr. Tyson today regarding need for homegoing TPN; will work with case management. Lab / Micro Data Result Diagrams: 12/25/21 06:26 12/26/21 05:22 Labs: Laboratory Results - last 24 hr 12/25/21 06:24: POC Glucose 124 H 12/25/21 18:47: POC Glucose 110 H 12/25/21 23:35: POC Glucose 104 12/26/21 05:22: Sodium 137, Potassium 3.6, Chloride 102, Carbon Dioxide 30.0, Anion Gap 5, BUN 21 H, Creatinine 0.50 L, Estim Creat Clear Calc 114.95, Est GFR (MDRD) Af Amer 166, Est GFR (MDRD) Non-Af 137, BUN/Creatinine Ratio 41.8 H, Glucose 106, Calcium 8.2 L, Phosphorus 3.0, Magnesium 1.6, Total Bilirubin 0.20, AST 24, ALT 13, Alkaline Phosphatase 189 H, Total Protein 6.0 L, Albumin 1.6 L, Globulin 4.4 H, Albumin/Globulin Ratio 0.4 L 12/26/21 05:46: POC Glucose 106 Micro: Microbiology 12/20/21 09:40 Blood Culture (Wb) - Port Blood Culture - Final No growth in 5 days. 12/20/21 09:31 Blood Culture (Wb) - Anticubital Left Blood Culture - Final No growth in 5 days. 12/20/21 12:05 Urine, Clean Catch Urine Culture - Final Mixed Gram Positive Organisms Radiography Diagnostic Testing: Radiology Impression Abdomen/Pelvis CT 12/26/21 12:05 IMPRESSION: Axillary lymphadenopathy. Hilar mediastinal lymphadenopathy. Bilateral lung consolidations or pleural effusions more prominent on the left. Demonstrate increase in comparison to the prior study. Fluid collection visualized surrounding the fundus of the stomach. Demonstrates increase in comparison to the prior study. Stranding of the peritoneal fat planes would recommend further evaluation to rule out omental caking. Left adrenal mass. Suboptimal evaluation of the uterus and ovaries. Extensive sclerotic bone lesions visualized. Bilateral inguinal lymphadenopathy is seen. Multiple areas of bowel wall thickening visualized but no evidence of obstruction or bowel dilation is seen. Electronically Signed: Juno Tracy MD at 16:20 EDT , Physical Exam Const alert General Appearance: cooperative Orientation / Consciousness: oriented to person HEENT hearing grossly normal bilaterally Head and Scalp: normal to inspection Face and Sinus: face symmetric Nose: external nose normal Mouth: oral and palatal mucosa normal Eyes conjunctivae normal General Eye: normal appearance of both eyes Neck full ROM General: normal visual inspection Lymph Lymphatic: no lymphadenopathy noted Chest inspection of chest normal and palpation of chest normal Chest: symmetrical chest wall rise Resp normal respiratory effort Effort and Inspection: able to speak in complete sentences Cardio regular rate GI non-distended GI Narrative: G-tube in place Percussion: normal to percussion Rectal Exam: deferred Neuro Speech: speech normal Assessment & Plan Assessment/Plan (1) Bowel obstruction: PLAN: Bowel obstruction secondary to peritoneal carcinomatosis with involvement of the small bowel. She is undergoing gastric decompression. This will likely need to be permanent. She will need to be on parenteral nutrition to maintain any nutrition so she can continue to undergo chemotherapy. 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 She was seen by oncology over the weekend and the plan is for her to continue current chemotherapy regimen with adjuvant therapy. (3) Nausea & vomiting: PLAN: Nausea vomiting is improved with decompression. She also has elements of medication induced gastroparesis secondary to narcotics which cannot be avoided at this time. Charges/Coding Visit Charges Inpatient E&M: 89566 Subs Hosp L3
[2021-12-26 18:00] LABS: Bedside Glucose 129 mg/dL (74-106)
[2021-12-26 21:23] VITALS: BP 136/82; PULSE 113; RESP 18; TEMP 37.1; O2SAT 92
[2021-12-27] VITALS (7 sets, daily range): BP systolic 127–154; BP diastolic 81–98; PULSE 112–120; RESP 18–22; TEMP 36.3–36.9; O2SAT 92–100
[2021-12-27 00:26] LABS: Bedside Glucose 119 mg/dL (74-106)
[2021-12-27] MEDS: Morphine 2 MG/ML Syringe IV ×6 (00:41→21:08)
[2021-12-27] MEDS: 0.9% Saline Lock 10 ML Syringe IV ×8 (00:43→17:29)
[2021-12-27] MEDS: proCHLORPERazine 10 MG/2 ML Vial 5 MG IV ×5 (01:40→21:19)
[2021-12-27] MEDS: LORazepam 2 MG/ML Syringe 0.5 MG IV ×2 (03:34→11:17)
[2021-12-27 06:01] LABS: Bedside Glucose 100 mg/dL (74-106)
[2021-12-27] MEDS: Enoxaparin 40 MG/0.4 ML Syringe SC (06:18)
[2021-12-27 06:59] LABS: ALB/GLOB Ratio 0.3 RATIO (0.9-2.4); AST(SGOT) 74 U/L (15-37); Alanine Aminotransfer ALT/SGPT 41 U/L (13-56); Albumin, Serum 1.6 g/dL (3.2-5.0); Alkaline Phosphatase 316 U/L (45-117); Anion Gap 7 (5-15); BUN 22 mg/dL (7-18); BUN/Creat Ratio 52.5 RATIO (10-20); Chloride 100 mmol/L (98-107); Creatinine, Serum 0.42 mg/dL (0.55-1.02); EST Glomerular Filtration Rate 169 mL/min (>60); Est Glom Filt Rate - Afr Amer 205 mL/min (>60); Estimated Creatinine Clearance 136.84 ml/min; Globulin 4.8 g/dL (2.2-4.2); Glucose 116 mg/dL (74-106); Magnesium 1.8 mg/dL (1.6-2.6); Phosphorus 3.3 mg/dL (2.5-4.9); Potassium 3.5 mmol/L (3.5-5.1); Protein, Total 6.4 g/dL (6.4-8.2); Sodium Level 133 mmol/L (136-145)
--- NOTE | 2021-12-27 07:40 | PCM.PN.HOSP ---
Subjective Subjective Patient seen still has significant drainage by gravity from her PEG tube. CT of the abdomen ordered 12/26/2021 demonstrated multiple areas of bowel wall thickening with no evidence of obstruction no bowel dilatation. Case was discussed with Dr Schwarz with oncology decision was made to consult general surgery Case discussed with Dr. Sifuentes Objective Data Objective Data Vital Signs: Vital Signs Temp Pulse Resp BP Pulse Ox 98.5 F 117 H 18 154/94 H 95 12/27/21 05:32 12/27/21 05:32 12/27/21 05:32 12/27/21 05:32 12/27/21 05:32 Oxygen Flow Rate (L/min) 3 Oxygen Delivery Method Room Air Weight: 88.6 kg Body Mass Index (BMI) 32.9 Intake & Output: Intake and Output for Last 24 Hours 12/25/21 12/26/21 12/27/21 23:59 23:59 23:59 Intake Total 6582.45 / 6582.45 5547.45 / 6087.45 1233.75 / 1233.75 Output Total 6550 / 6550 3725 / 5225 2800 / 2800 Balance 32.45 / 32.45 1822.45 / 862.45 -1566.25 / -1566.25 Medical Nutrition Assessment Dietitian: Malnutrition Criteria Met Start: 12/21/21 15:59 Freq: Status: Active Protocol: Document 12/26/21 12:24 JOHN (Rec: 12/26/21 12:24 JOHN [id number]) Nutrition Malnutrition Evidence of Malnutrition Exists Yes Malnutrition (severe): Acute Illness/Injury Evidenced By Suboptimal Energy Intake ( Severe),Weight Loss (Severe) Intake Problem Inadequate Oral Intake Etiology related to altered GI function /bowel obstruction Signs/Symptoms as evidenced by NPO x 4 days Status Resolved Problem Clinical Problem Acute Disease or Injury Related Malnutrition Etiology Severe protein-calorie malnutrition in the context of acute illness related to altered GI function and inadequate oral intake Signs/Symptoms as evidenced by wt loss ~10-12 % x 3 months, poor oral intake meeting less than 50% estimated nutrition needs x past 2-3 weeks Status Active Problem Recommendation Dietitian Recommendations/Changes 1.) TPN day #4ordered today: will continue 2 L Clinimix 8% amino acid/14% dextrose @ 84ml /hr with electrolytes, folic acid, MVI and trace elements with the addition of 250 ml 20 % lipids to provide 2093 kcal, 280 gm dextrose and 160 gm protein per day. 2.) Will order lipids today w/ plan for sunday, sunday, sunday. 3.) Continue daily weights. 4.) Continue monitoring of labs/electrolytes. 5.) Full liquid diet for pleasure as tolerated. 6.) Spoke to Dr. Tyson today regarding need for homegoing TPN; will work with case management. Lab / Micro Data Result Diagrams: 12/25/21 06:26 12/27/21 06:25 Labs: Laboratory Results - last 24 hr 12/26/21 17:58: POC Glucose 129 H 12/27/21 00:20: POC Glucose 119 H 12/27/21 05:51: POC Glucose 100 12/27/21 06:25: Sodium 133 L, Potassium 3.5, Chloride 100, Carbon Dioxide 26.0, Anion Gap 7, BUN 22 H, Creatinine 0.42 L, Estim Creat Clear Calc 136.84, Est GFR (MDRD) Af Amer 205, Est GFR (MDRD) Non-Af 169, BUN/Creatinine Ratio 52.5 H, Glucose 116 H, Calcium 8.0 L, Phosphorus 3.3, Magnesium 1.8, Total Bilirubin 0.40, AST 74 H, ALT 41, Alkaline Phosphatase 316 H, Total Protein 6.4, Albumin 1.6 L, Globulin 4.8 H, Albumin/Globulin Ratio 0.3 L Micro: Microbiology 12/20/21 09:40 Blood Culture (Wb) - Port Blood Culture - Final No growth in 5 days. 12/20/21 09:31 Blood Culture (Wb) - Anticubital Left Blood Culture - Final No growth in 5 days. 12/20/21 12:05 Urine, Clean Catch Urine Culture - Final Mixed Gram Positive Organisms Radiography Diagnostic Testing: Radiology Impression Abdomen/Pelvis CT 12/26/21 12:05 IMPRESSION: Axillary lymphadenopathy. Hilar mediastinal lymphadenopathy. Bilateral lung consolidations or pleural effusions more prominent on the left. Demonstrate increase in comparison to the prior study. Fluid collection visualized surrounding the fundus of the stomach. Demonstrates increase in comparison to the prior study. Stranding of the peritoneal fat planes would recommend further evaluation to rule out omental caking. Left adrenal mass. Suboptimal evaluation of the uterus and ovaries. Extensive sclerotic bone lesions visualized. Bilateral inguinal lymphadenopathy is seen. Multiple areas of bowel wall thickening visualized but no evidence of obstruction or bowel dilation is seen. Electronically Signed: Juno Tracy MD at 16:20 EDT , ADDENDUM: 12/26/21 1701 Physical Exam Narrative GENERAL: cooperative HEENT: Atraumatic; EYES; Anicteric, Normal Conjunctiva NECK; supple, normal thyroid, RESPIRATORY: Diminished to auscultation CARDIOVASCULAR: Regular S1 S2, GI: soft, normoactive bowel sounds,, PEG tube in place : No Renal angle tenderness; EXTREMITIES: No edema, no clubbing, MUSCULOSKELETAL: no muscle wasting NEURO: Awake; no lateralizing signs. SKIN: No Rash PSYCH; Flat affect Assessment & Plan Assessment/Plan (1) Colon cancer: QUALIFIERS: Colon location: ascending Qualified Code(s): C18.2 - Malignant neoplasm of ascending colon (2) Malignant pleural effusion: PLAN: Patient is a 51-year-old lady with history of metastatic colon cancer who presented with abdominal pain constipation nausea and vomiting. CT of the abdomen and pelvis obtained on admission demonstrated progressive thickening of the ascending colon with findings suggestive of omental metastasis, left pleural effusion with left basilar infiltration/atelectasis and mild right basilar atelectasis. Admitted to regular nursing floor for further management 1. Abdominal pain ? CT on admission did show progressive thickening of the ascending colon with findings suggestive of omental metastasis. Consult was placed to GI patient was seen by Dr. Morfin who did perform EGD demonstrating esophagitis and duodenitis and excess gastric fluid. Patient had a removable PEG tube placed. 11/26/2021 Patient seen still has significant drainage by gravity from her PEG tube. CT of the abdomen ordered 12/26/2021 demonstrated multiple areas of bowel wall thickening with no evidence of obstruction no bowel dilatation. Case was discussed with Dr Schwarz with oncology decision was made to consult general surgery Case discussed with Dr. Sifuentes 2. Severe protein calorie malnutrition ? As evidenced by suboptimal energy intake and severe weight loss this is related to patient underlying metastatic colon cancer. Consult was placed to dietitian. TPN was recommended which has been initiated. Plan is for patient to be discharged home once case management is able to arrange for TPN to be administered at home 3. Stage IV: CA ? Patient currently being managed and followed by oncology 4. Depression with anxiety ? Patient is on escitalopram as well as buspirone 5. Class I obesity with BMI of 33.5 ? Weight loss advised 6. Hypokalemia ? Corrected per protocol 7. Hypomagnesemia -corrected per protocol 8. History of previous DVT/PE ? On Eliquis held for patient's procedure 9. DVT prophylaxis ? Enoxaparin Charges/Coding Visit Charges Inpatient E&M: 29552 Subs Hosp L2
[2021-12-27] MEDS: busPIRone 5 MG Tablet 10 MG PO ×2 (09:43→23:19)
[2021-12-27] MEDS: Senna Tablet 1 TABLET PO ×2 (09:44→23:19)
[2021-12-27] MEDS: Pantoprazole Sodium 40 MG Tablet PO (09:44)
[2021-12-27] MEDS: Escitalopram Oxalate 20 MG Tablet PO (09:44)
--- NOTE | 2021-12-27 11:06 | CON.PCM.SX_ITS ---
Assessment & Plan Assessment/Plan (1) Colon cancer: QUALIFIERS: Colon location: ascending Qualified Code(s): C18.2 - Malignant neoplasm of ascending colon (2) Bowel obstruction: PLAN: This is a 51-year-old female with diagnosis of stage IV colon cancer and associated failure to thrive/inability to reliably tolerate p.o. intake who is evaluated for concern for bowel obstruction. Patient's voluminous output from her PEG tube and absence of a bowel movement are certainly suggestive for this diagnosis, however her case is complex and her current symptoms are likely multifactorial. In my independent review of the imaging and again with the reading radiologist, there is some concern for possible proximal narrowing of the small bowel at the transition between the fourth portion of the duodenum and the jejunum in the area of the ligament of Treitz. Is also noted, however, that radiology identifies multiple areas of bowel wall thickening. To better assess for possibility of a proximal, mechanical small bowel obstruction, I have discussed performing a small bowel series via the patient's PEG tube. This plan was also discussed with radiology and, if obstruction is found, radiology would consider transitioning the patient's current G-tube to a GJ tube for bypass of the narrowing in the duodenum. I have cautioned the patient that this may be only the most proximal in a series of obstructing lesions, but if it is singular in nature this may allow us to provide her with enteral nutrition and medications (if crushable). I do not recommend surgery at this juncture as I am concerned the patient has a multifocal issue, is nutritionally deplete, is actively on chemotherapy, that a surgery could potentially lead to a postoperative ileus (that would be hard to distinguish from her current dysmotility), and would require necessary convalescence off of additional chemotherapy which may afford the tumor an opportunity of for growth. Agree with medicine that palliative measures are appropriate. Additionally, for the acute issues would recommend placing the patient's PEG tube to gravity following her above imaging study and providing rectal suppositories to stimulate a bowel movement. HPI Consult Data Date of Consult: 12/27/21 HPI Narrative HPI Narrative: YENY CERON, is a 51 F, with diagnosis of stage IV colon cancer given evidence of peritoneal carcinomatosis (as well as others) on chemotherapy with FOLFIRINOX, who was admitted 1 week ago for symptoms of intractable nausea and vomiting. It is my understanding patient initially had a favorable response to the chemotherapy and subsequent imaging seem to show a reduction in the tumor burden, however, patient states for the last 3 weeks she has had more significant nausea and vomiting. Since this time she is only intermittently able to keep food down. She estimates that she has lost a total of 60 to 70 pounds since her diagnosis in July and 30 pounds in the last 1 month. During this admission, patient underwent EGD with Dr. Morfin on 12/23/2021 and was confirmed to have grade C esophagitis, gastritis, duodenitis, and copious bilious fluid. She also underwent placement of a percutaneous endoscopic gastrostomy given her complaints as a means of gastric decompression. She states that is been now nearly 5 days since she had a bowel movement and serial CT imaging of the abdomen has been obtained to evaluate for obstruction. Yesterday, 12/26/[address] of the abdomen pelvis that showed Multiple areas of bowel wall thickening visualized but no evidence of obstruction or bowel dilation is seen alongside numerous areas of lymphadenopathy and a left adrenal mass. Still, given her lack of a bowel movement and copious output from her gastrostomy (4 to 5 L over 24hrs), surgery is asked to evaluate. [facility] Medical History (Updated 12/27/21 @ 00:01 by Background Daemon) Anemia Anxiety and depression At high risk for deep venous thrombosis At high risk for venous thromboembolism (VTE) Back pain Chronic cough Colon cancer Dehydration DVT (deep venous thrombosis) Elevated serum creatinine Encounter for adjustment and management of vascular access device Encounter for chemotherapy management Former tobacco use GERD (gastroesophageal reflux disease) Heart burn History of steroid therapy Hypokalemia Hypomagnesemia Left leg pain Malignant ascites Migraine headache Morbid obesity Nausea & vomiting Oral candidiasis Post-menopausal Shortness of breath on exertion Wears dentures Wears glasses Weight loss Home Medications buspirone 10 mg PO BID 06/13/21 [History Last Taken 12/19/21] escitalopram oxalate 20 mg PO DAILY 06/13/21 [History Last Taken 12/19/21] apixaban [Eliquis] 5 mg PO BID #49 tab 07/28/21 [Rx Last Taken 12/19/21] lidocaine-prilocaine 2.5 %-2.5 % topical cream 1 applic TOPICAL ONCE PRN 30 Days #30 g 07/28/21 [Rx Last Taken Unknown] prochlorperazine maleate 5 mg tablet 5 mg PO TID PRN #30 tab 08/01/21 [Rx Last Taken Unknown] sennosides 8.6 mg tablet 8.6 mg PO BID #60 tab 08/01/21 [Rx Last Taken 12/18/21] omeprazole 40 mg capsule,delayed release 40 mg PO DAILY #90 cap 10/07/21 [Rx Last Taken 12/19/21] hydrocodone-acetaminophen 5-325mg 5mg-325mg 1 tab PO Q6H PRN 10/11/21 [History Last Taken 12/20/21] methadone 5 mg tablet 5 mg PO BID tab 10/25/21 [History Last Taken 12/19/21] dicyclomine 20 mg tablet 20 mg PO BID #60 tab 11/04/21 [Rx Last Taken 12/19/21] ondansetron 8 mg disintegrating tablet 8 mg PO Q8H PRN #30 tab 11/04/21 [Rx Last Taken Unknown] scopolamine base 1 mg over 3 days transdermal patch 1 patch TRANSDERMAL Q3D PRN #10 ea 11/04/21 [Rx Last Taken 12/18/21] haloperidol 1 mg PO BID #4 tab 12/19/21 [Rx Last Taken 12/18/21] Allergy/AdvReac Type Severity Reaction Status Date / Time No Known Allergies Allergy Verified 12/20/21 08:55 Family History Father Diabetes Mother Hypertension Brother Hypertension Surgical History History of cholecystectomy (~06/2021) S/P section S/P rotator cuff repair Social History household members: family Smoking Status: Former smoker how long ago did patient quit smoking: Quit 2 years prior, smoked 1/2 ppd since she was a teenager until quitting. alcohol intake: never substance use type: does not use Physical Exam Const alert and oriented x3 Constitutional Narrative: Appears frustrated General Appearance: cooperative Resp normal respiratory effort GI GI Narrative: Mildly distended, mildly firm, tender to palpation primarily about gastrostomy in the left upper quadrant. Gastrostomy tube appears appropriate without leakage and is connected to intermittent wall suction draining bilious output. Medical Records Data Medical Nutrition Assessment Dietitian: Malnutrition Criteria Met Start: 12/21/21 1 5:59 Freq: Status: Active Protocol: Document 12/26/21 12:24 [facility] (Rec: 12/26/21 12:24 [facility] [id number]) Nutrition Malnutrition Evidence of Malnutrition Exists Yes Malnutrition (severe): Acute Illness/Injury Evidenced By Suboptimal Energy Intake ( Severe),Weight Loss (Severe) Intake Problem Inadequate Oral Intake Etiology related to altered GI function /bowel obstruction Signs/Symptoms as evidenced by NPO x 4 days Status Resolved Problem Clinical Problem Acute Disease or Injury Related Malnutrition Etiology Severe protein-calorie malnutrition in the context of acute illness related to altered GI function and inadequate oral intake Signs/Symptoms as evidenced by wt loss ~10-12 % x 3 months, poor oral intake meeting less than 50% estimated nutrition needs x past 2-3 weeks Status Active Problem Recommendation Dietitian Recommendations/Changes 1.) TPN day #4ordered today: will continue 2 L Clinimix 8% amino acid/14% dextrose @ 84ml /hr with electrolytes, folic acid, MVI and trace elements with the addition of 250 ml 20 % lipids to provide 2093 kcal, 280 gm dextrose and 160 gm protein per day. 2.) Will order lipids today w/ plan for sunday, sunday, sunday. 3.) Continue daily weights. 4.) Continue monitoring of labs/electrolytes. 5.) Full liquid diet for pleasure as tolerated. 6.) Spoke to Dr. Tyson today regarding need for homegoing TPN; will work with case management. Lab / Micro Data Result Diagrams: 12/25/21 06:26 12/27/21 06:25 Labs: Laboratory Results - last 24 hr 12/26/21 17:58: POC Glucose 129 H 12/27/21 00:20: POC Glucose 119 H 12/27/21 05:51: POC Glucose 100 12/27/21 06:25: Sodium 133 L, Potassium 3.5, Chloride 100, Carbon Dioxide 26.0, Anion Gap 7, BUN 22 H, Creatinine 0.42 L, Estim Creat Clear Calc 136.84, Est GFR (MDRD) Af Amer 205, Est GFR (MDRD) Non-Af 169, BUN/Creatinine Ratio 52.5 H, Glucose 116 H, Calcium 8.0 L, Phosphorus 3.3, Magnesium 1.8, Total Bilirubin 0.40, AST 74 H, ALT 41, Alkaline Phosphatase 316 H, Total Protein 6.4, Albumin 1.6 L, Globulin 4.8 H, Albumin/Globulin Ratio 0.3 L Radiology Impression Abdomen/Pelvis CT 12/26/21 12:05 IMPRESSION: Axillary lymphadenopathy. Hilar mediastinal lymphadenopathy. Bilateral lung consolidations or pleural effusions more prominent on the left. Demonstrate increase in comparison to the prior study. Fluid collection visualized surrounding the fundus of the stomach. Demonstrates increase in comparison to the prior study. Stranding of the peritoneal fat planes would recommend further evaluation to rule out omental caking. Left adrenal mass. Suboptimal evaluation of the uterus and ovaries. Extensive sclerotic bone lesions visualized. Bilateral inguinal lymphadenopathy is seen. Multiple areas of bowel wall thickening visualized but no evidence of obstruction or bowel dilation is seen. Electronically Signed: Juno Tracy MD at 16:20 EDT Reading Location ID and State: [facility] / [place] Tel , Service support , ADDENDUM: 12/26/21 1701 Charges/Coding Visit Charges Inpatient E&M: 86370 Init Hosp L2
--- NOTE | 2021-12-27 11:30 | RAD_ITS ---
INDICATION: Concern for small bowel obstruction EXAMINATION/TECHNIQUE: Gastrografin oral contrast was administered via PEG tube to the patient. Number of Fluoroscopic Images: 14 COMPARISON: None. FINDINGS: Large left and trace right pleural effusions. Gastrostomy tube is seen. There is also trace retained oral contrast from a prior CT seen within the colon and rectum. No masses or strictures are identified. The mucosal pattern is unremarkable. Oral contrast was administered through the PEG tube. There is gastroesophageal reflux up to the midesophagus. The contrast is also seen opacifying the stomach and distended proximal small bowel. At the 270 minute macho contrast does not appear to pass into the distal small bowel or colon. At the 510 minute macho, however most of the contrast has passed through the small and large bowel. RAD/Small Bowel Series Only IMPRESSION: Retained oral contrast from a prior CT seen within the colon and rectum limits this examination. Despite limitations: Distended proximal small bowel with slow transit but otherwise no bowel obstruction as most of the contrast passes through the small and large bowel by 8.5 hours. Gastroesophageal reflux. Large left and trace right pleural effusions. Electronically Signed: Desmond Anderson MD at 1:08 EDT ,
--- NOTE | 2021-12-27 12:17 | CASEMGMT ---
Discussed with Dr. Morfin pt needing TPN at home without physician to follow. He agrees to do so. In rounds today, noted pt is not ready for dc and TPN plans currently on hold for home.
[2021-12-27 13:41] LABS: Bedside Glucose 111 mg/dL (74-106)
--- NOTE | 2021-12-27 15:35 | ONC.PN.INPT ---
Subjective Subjective Events of the last [address] reviewed[address] Images from [address] A/P obtained yesterday, 12/26/21 reviewed- demonstrates several areas of bowel wall thickening per Dr. Schwarz with suspicion for obstruction. A surgery consultation was requested. Upon entering the room, the patient is sitting upright in bed. Reports she is feeling bloated and SOB as a result of the PEG tube currently being clamped. The dyspnea also causes her to feel anxious. Physical Exam Narrative ECOG 1-2 Const alert and oriented x3 Constitutional Narrative: Appears frustrated General Appearance: cooperative HEENT moist oral mucous membranes Eyes conjunctivae normal and no scleral icterus Resp normal respiratory effort and clear to auscultation bilaterally Resp Narrative: O2 @ 2 L Effort and Inspection: able to speak in complete sentences Cardio regular rate, regular rhythm, S1 normal heart sound and S2 normal heart sound GI GI Narrative: Gastrostomy tube is presently clamped, without leakage. NG canister is nearly full of bilious output. Palpation: firm and tender LUQ and RUQ Extremity no clubbing, cyanosis or edema and no calf tenderness Skin no rashes or lesions noted Neuro CN's II-XII intact bilaterally and moves all extremities Psych mental status grossly normal, thought process normal and affect normal Vital Signs Temperature 98.4 F 12/27/21 14:17 Temperature Source Oral 12/27/21 14:17 Pulse Rate 113 H 12/27/21 14:17 Pulse Strength Normal (2+) 12/27/21 08:16 Respiratory Rate 18 12/27/21 14:17 Respiratory Effort 12/27/21 14:29 Respiratory Depth Normal 12/27/21 09:03 Respiratory Pattern Normal 12/27/21 09:03 Blood Pressure 130/86 H 12/27/21 14:17 Blood Pressure Mean 100 12/27/21 14:17 Blood Pressure Source Monitor 12/27/21 14:17 Blood Pressure Position Semi-Fowlers 12/27/21 14:17 Blood Pressure Location Left Arm 12/27/21 14:17 Baseline BP 119/85 12/23/21 20:10 Pulse Ox 98 12/27/21 14:17 Oxygen Delivery Method Room Air 12/27/21 14:29 Oxygen Flow Rate (L/min) 2 12/27/21 14:17 Laboratory Results - last 24 hr 12/26/21 17:58: POC Glucose 129 H 12/27/21 00:20: POC Glucose 119 H 12/27/21 05:51: POC Glucose 100 12/27/21 06:25: Sodium 133 L, Potassium 3.5, Chloride 100, Carbon Dioxide 26.0, Anion Gap 7, BUN 22 H, Creatinine 0.42 L, Estim Creat Clear Calc 136.84, Est GFR (MDRD) Af Amer 205, Est GFR (MDRD) Non-Af 169, BUN/Creatinine Ratio 52.5 H, Glucose 116 H, Calcium 8.0 L, Phosphorus 3.3, Magnesium 1.8, Total Bilirubin 0.40, AST 74 H, ALT 41, Alkaline Phosphatase 316 H, Total Protein 6.4, Albumin 1.6 L, Globulin 4.8 H, Albumin/Globulin Ratio 0.3 L 12/27/21 13:33: POC Glucose 111 H Diagnostic Data Chest X-Ray 12/20/21 10:00 IMPRESSION: Increasing left pleural effusion with left basilar infiltration and/or atelectasis. Electronically Signed: Carlitos Roberts MD at 10:32 EDT , KUB X-Ray 12/22/21 09:37 IMPRESSION: The tip of the nasogastric tube is in the body of the stomach. Left pleural effusion with left basilar atelectasis and/or infiltrate. Electronically Signed: Carlitos Roberts MD at 9:59 EDT , Abdomen/Pelvis CT 12/26/21 12:05 IMPRESSION: Axillary lymphadenopathy. Hilar mediastinal lymphadenopathy. Bilateral lung consolidations or pleural effusions more prominent on the left. Demonstrate increase in comparison to the prior study. Fluid collection visualized surrounding the fundus of the stomach. Demonstrates increase in comparison to the prior study. Stranding of the peritoneal fat planes would recommend further evaluation to rule out omental caking. Left adrenal mass. Suboptimal evaluation of the uterus and ovaries. Extensive sclerotic bone lesions visualized. Bilateral inguinal lymphadenopathy is seen. Multiple areas of bowel wall thickening visualized but no evidence of obstruction or bowel dilation is seen. Electronically Signed: Juno Tracy MD at 16:20 EDT , ADDENDUM: 12/26/21 1701 Assessment & Plan Assessment/Plan (1) Colon cancer: QUALIFIERS: Colon location: ascending Qualified Code(s): C18.2 - Malignant neoplasm of ascending colon (2) Bowel obstruction: QUALIFIERS: Intestinal obstruction extent: partial Intestinal obstruction type: unspecified Qualified Code(s): K56.600 - Partial intestinal obstruction, unspecified as to cause (3) At high risk for venous thromboembolism (VTE): PLAN: Ms. 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 Now with progressive disease. Care has been complicated by bowel obstruction. - Surgery has recommended against surgical intervention at this time citing several concerns including postop ileus and delay in starting second line oncolytics. At the time of this documentation, she is in the midst of a small bowel series. It has been suggested the current G-tube could be transitioned to a GJ tube if narrowing is identified in the duodenum. From an oncology perspective, considering this transition will still not allow us to use targeted therapy, as encorafenib is a capsule that cannot be dissolved. 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 - Encouraged the patient to ambulate as much as possible in her room as she is at high risk for VTE. Continue LMWH during admission. Case discussed with Dr. Schwarz. Will follow with more suggestions depending results
[2021-12-27] MEDS: TPN - Clinimix E 8%-14% Soln 2,000 ML with Multivitamins 10 ML, Trace Elements 1 ML, Fo... 84 ML IV (16:10)
[2021-12-27 17:41] LABS: Bedside Glucose 130 mg/dL (74-106)
[2021-12-27] MEDS: Polyethylene Glycol 3350 17 GM PACKET PO (23:18)
[2021-12-28] MEDS: LORazepam 2 MG/ML Syringe 0.5 MG IV ×3 (00:11→22:46)
[2021-12-28] MEDS: 0.9% Saline Lock 10 ML Syringe IV ×7 (00:12→22:46)
[2021-12-28] MEDS: Morphine 2 MG/ML Syringe IV ×6 (00:31→22:23)
[2021-12-28 00:46] LABS: Bedside Glucose 122 mg/dL (74-106)
[2021-12-28 02:45] VITALS: BP 132/94; PULSE 111; RESP 18; TEMP 37.1; O2SAT 98
[2021-12-28] MEDS: proCHLORPERazine 10 MG/2 ML Vial 5 MG IV ×4 (04:28→21:25)
[2021-12-28] MEDS: Enoxaparin 40 MG/0.4 ML Syringe SC (05:56)
[2021-12-28 06:06] LABS: Bedside Glucose 134 mg/dL (74-106)
[2021-12-28] MEDS: 0.9 % NaCl (Sterile) Posiflush 10 mL IV (06:41)
--- NOTE | 2021-12-28 07:28 | PN.HOSP_ITS ---
Subjective Subjective Patient underwent small bowel series on 12/27/2021 findings as below Distended proximal small bowel with slow transit but otherwise no bowel obstruction as most of the contrast passes through the small and large bowel by 8.5 hours. Patient however did not have any bowel movement do suspect the contrast might have been started through her NG tube which is currently hooked to gravity. Lucy n is to repeat KUB this a.m. Patient was also seen in consultation by Dr. Sifuentes with general surgery his notes and recommendations reviewed including decision not to proceed with any surgical intervention Objective Data Objective Data Vital Signs: Vital Signs Temp Pulse Resp BP Pulse Ox 98.8 F 111 H 18 132/94 H 98 12/28/21 02:45 12/28/21 02:45 12/28/21 02:45 12/28/21 02:45 12/28/21 02:45 Oxygen Flow Rate (L/min) 3 Oxygen Delivery Method Nasal Cannula Weight: 89.4 kg Body Mass Index (BMI) 32.9 Intake & Output: Intake and Output for Last 24 Hours 12/26/21 12/27/21 12/28/21 23:59 23:59 23:59 Intake Total 5547.45 / 6087.45 3231.55 / 3231.55 530 / 530 Output Total 3725 / 5225 3800 / 3800 1750 / 1750 Balance 1822.45 / 862.45 -568.45 / -568.45 -1220 / -1220 Medical Nutrition Assessment Dietitian: Malnutrition Criteria Met Start: 12/21/21 15:59 Freq: Status: Active Protocol: Document 12/27/21 14:09 RMA (Rec: 12/27/21 14:09 RMA [id number]) Nutrition Malnutrition Evidence of Malnutrition Exists Yes Malnutrition (severe): Acute Illness/Injury Evidenced By Suboptimal Energy Intake ( Severe),Weight Loss (Severe) Intake Problem Inadequate Oral Intake Etiology related to altered GI function /bowel obstruction Signs/Symptoms as evidenced by NPO x 4 days Status Resolved Problem Clinical Problem Acute Disease or Injury Related Malnutrition Etiology Severe protein-calorie malnutrition in the context of acute illness related to altered GI function and inadequate oral intake Signs/Symptoms as evidenced by wt loss ~10-12 % x 3 months, poor oral intake meeting less than 50% estimated nutrition needs x past 2-3 weeks, Full Liquid diet as tolerated, TPN to meet estimated nutrition needs Status Active Problem Recommendation Dietitian Recommendations/Changes 1.) TPN day #5 ordered today: 2L Clinimix 8% AA/14% dextrose solution at 84ml/hr with electrolytes, MVI, folic acid and trace elements to provide 1593 kcal, 280 gm dextrose and 160 gm protein per day. TPN meets~75% estimated calorie needs and ~100% estimated protein needs. 2.) Will order lipids sunday, sunday, sunday. 3.) Continue daily weights. 4.) Continue monitoring of labs/electrolytes. 5.) Full liquid diet for pleasure as tolerated. 6.) Plans homegoing TPN; will work with case management. Lab / Micro Data Result Diagrams: 12/25/21 06:26 12/27/21 06:25 Labs: Laboratory Results - last 24 hr 12/27/21 13:33: POC Glucose 111 H 12/27/21 17:28: POC Glucose 130 H 12/28/21 00:35: POC Glucose 122 H 12/28/21 05:55: POC Glucose 134 H Micro: Microbiology 12/20/21 09:40 Blood Culture (Wb) - Port Blood Culture - Final No growth in 5 days. 12/20/21 09:31 Blood Culture (Wb) - Anticubital Left Blood Culture - Final No growth in 5 days. 12/20/21 12:05 Urine, Clean Catch Urine Culture - Final Mixed Gram Positive Organisms Physical Exam Narrative GENERAL: cooperative HEENT: Atraumatic; EYES; Anicteric, Normal Conjunctiva NECK; supple, normal thyroid, RESPIRATORY: Diminished to auscultation CARDIOVASCULAR: Regular S1 S2, GI: soft, normoactive bowel sounds,, PEG tube in place : No Renal angle tenderness; EXTREMITIES: No edema, no clubbing, MUSCULOSKELETAL: no muscle wasting NEURO: Awake; no lateralizing signs. SKIN: No Rash PSYCH; Flat affect Assessment & Plan Assessment/Plan (1) Colon cancer: QUALIFIERS: Colon location: ascending Qualified Code(s): C18.2 - Malignant neoplasm of ascending colon (2) Malignant pleural effusion: PLAN: Patient is a 51-year-old lady with history of metastatic colon cancer who presented with abdominal pain constipation nausea and vomiting. CT of the abdomen and pelvis obtained on admission demonstrated progressive thickening of the ascending colon with findings suggestive of omental met astasis, left pleural effusion with left basilar infiltration/atelectasis and mild right basilar atelectasis. Admitted to regular nursing floor for further management 1. Abdominal pain ? CT on admission did show progressive thickening of the ascending colon with findings suggestive of omental metastasis. Consult was placed to GI patient was seen by Dr. Morfin who did perform EGD demonstrating esophagitis and duodenitis and excess gastric fluid. Patient had a removable PEG tube placed. 11/26/2021 Patient seen still has significant drainage by gravity from her PEG tube. CT of the abdomen ordered 12/26/2021 demonstrated multiple areas of bowel wall thickening with no evidence of obstruction no bowel dilatation. Case was discussed with Dr Schwarz with oncology decision was made to consult general surgery Case discussed with Dr. Sifuentes 12/28/2021; Patient underwent small bowel series on 12/27/2021 findings as below Distended proximal small bowel with slow transit but otherwise no bowel obstruction as most of the contrast passes through the small and large bowel by 8.5 hours. Patient however did not have any bowel movement do suspect the contrast might have been started through her NG tube which is currently hooked to gravity. Plan is to repeat KUB this a.m. Patient was also seen in consultation by Dr. Sifunetes with general surgery his notes and recommendations reviewed including decision not to proceed with any surgical intervention 2. Severe protein calorie malnutrition ? As evidenced by suboptimal energy intake and severe weight loss this is related to patient underlying metastatic colon cancer. Consult was placed to dietitian. TPN was recommended which has been initiated. Plan is for patient to be discharged home once case management is able to arrange for TPN to be administered at home 3. Stage IV: CA ? Patient currently being managed and followed by oncology 4. Depression with anxiety ? Patient is on escitalopram as well as buspirone 5. Class I obesity with BMI of 33.5 ? Weight loss advised 6. Hypokalemia ? Corrected per protocol 7. Hypomagnesemia -corrected per protocol 8. History of previous DVT/PE ? On Eliquis held for patient's procedure 9. DVT prophylaxis ? Enoxaparin 10. Anemia - Secondary to chronic disorder monitoring H&H and transfuse if patient becomes symptomatic or hemoglobin falls below 7 Charges/Coding Visit Charges Inpatient E&M: 14652 Subs Hosp L2
[2021-12-28 08:44] LABS: Absolute Lymphocyte Count 0.62 X10^3/uL (0.83-4.51); Absolute Neutrophil Count 6.4 X10^3/uL (2.0-7.7); Basophil# 0.05 X10^3/uL; Basophil% 0.6 % (0-1); Eosinophil# 0.23 X10^3/uL; Eosinophils% 2.8 % (0-5); Hematocrit 30.4 % (37-47); Hemoglobin 9.8 g/dL (12.0-15.0); Lymphocyte # 0.62 X10^3/ul (0.83-4.51); Lymphocyte % 7.4 % (19-41); Mean Corp Hgb Conc 32.2 g/dL (32-36); Mean Corpuscular Hgb 29.3 pg (27.0-32.0); Mean Corpuscular Volume 90.7 fL (81-99); Mean Platelet Vol. 10.4 fl (6.2-12.0); Monocyte% 10.8 % (0-10); NRBC Flagged by Analyzer 0 % (0-5); Neutrophil # 6.37 X10^3/uL (2.7-7.7); Neutrophil % 76.4 % (47-70); Platelet Count 230 K/mm3 (150-450); RBC Distribution Width CV 16.7 % (11.6-14.6); RBC Distribution Width SD 54.3 fl (35.1-43.9); Red Blood Count 3.35 M/mm3 (4.2-5.4); White Blood Count 8.3 K/mm3 (4.4-11.0)
[2021-12-28 09:00] VITALS: BP 123/81; PULSE 115; RESP 16; TEMP 36.7; O2SAT 96
--- NOTE | 2021-12-28 09:20 | CASEMGMT ---
BENITO REYES in to pt room to check in on pt. Pt states she is in pain and the chair is not comfortable, neither is the bed. She asks if she can bring in her zero gravity chair. Spoke with charge nurse who states this is a safety concern. Pt does state she would like HHC [place] even if she does not go home on the TPN. BENITO REYES to follow.
[2021-12-28 09:50] LABS: ALB/GLOB Ratio 0.3 RATIO (0.9-2.4); AST(SGOT) 96 U/L (15-37); Alanine Aminotransfer ALT/SGPT 66 U/L (13-56); Albumin, Serum 1.7 g/dL (3.2-5.0); Alkaline Phosphatase 396 U/L (45-117); Anion Gap 9 (5-15); BUN 28 mg/dL (7-18); BUN/Creat Ratio 58.5 RATIO (10-20); Calcium,Total 9.1 mg/dL (8.5-10.1); Chloride 101 mmol/L (98-107); Creatinine, Serum 0.48 mg/dL (0.55-1.02); EST Glomerular Filtration Rate 145 mL/min (>60); Est Glom Filt Rate - Afr Amer 176 mL/min (>60); Estimated Creatinine Clearance 119.74 ml/min; Globulin 5.4 g/dL (2.2-4.2); Glucose 129 mg/dL (74-106); Magnesium 1.8 mg/dL (1.6-2.6); Potassium 3.7 mmol/L (3.5-5.1); Protein, Total 7.1 g/dL (6.4-8.2); Sodium Level 133 mmol/L (136-145)
[2021-12-28] MEDS: Polyethylene Glycol 3350 17 GM PACKET PO ×2 (09:56→21:25)
[2021-12-28] MEDS: Pantoprazole Sodium 40 MG Tablet PO (09:56)
[2021-12-28] MEDS: busPIRone 5 MG Tablet 10 MG PO ×2 (09:56→21:24)
[2021-12-28] MEDS: Escitalopram Oxalate 20 MG Tablet PO (09:56)
[2021-12-28] MEDS: Senna Tablet 1 TABLET PO ×2 (09:57→21:24)
[2021-12-28] MEDS: fentaNYL 25 MCG Patch TD (10:09)
--- NOTE | 2021-12-28 10:23 | RAD_ITS ---
STUDY: X-RAY - ABDOMEN/PELVIS REASON FOR EXAM: Female, 51 years old. SBO abdominal pain TECHNIQUE: Frontal views of the abdomen COMPARISON: 27 December 2021 FINDINGS: There is limited amount of gas in the abdomen making evaluation difficult. Obstructed bowel which is filled with fluid would not be clearly detectable on plain films. There is percutaneous gastrostomy. Gas and stool are present in the colon excluding complete bowel obstruction. There is right lower lobe disease, incompletely evaluated, possibly effusion. RAD/Abd Decub and/or Erect(Portabl IMPRESSION: 1. No complete bowel obstruction. 2. Limited visualization of bowel on plain films. 3. Thoracic disease. Electronically Signed: Donal Marin MD at 14:32 EDT ,
--- NOTE | 2021-12-28 12:27 | PCM.PN.SRG ---
Subjective Subjective Patient was seen and examined during AM rounds. I asked her how she felt with her PEG tube During her small bowel series, and she admitted that she did have a bout of vomiting between 6 PM and 8 PM last evening as she was not able to empty the tube. However, she adds that she feels better today and she is passing some gas with feelings of possible bowel movement coming. Objective Data Objective Data Vital Signs: Vital Signs Temp Pulse Resp BP Pulse Ox 98.0 F 115 H 16 123/81 H 96 12/28/21 09:00 12/28/21 09:00 12/28/21 09:00 12/28/21 09:00 12/28/21 09:00 Oxygen Flow Rate (L/min) 3 Oxygen Delivery Method Nasal Cannula Weight: 197 lb 1.492 oz Body Mass Index (BMI) 32.9 Intake & Output: Intake and Output for Last 24 Hours 12/26/21 12/27/21 12/28/21 23:59 23:59 23:59 Intake Total 5547.45 / 6087.45 3231.55 / 3231.55 954.2 / 954.2 Output Total 3725 / 5225 3800 / 3800 1750 / 1750 Balance 1822.45 / 862.45 -568.45 / -568.45 -795.8 / -795.8 Medical Nutrition Assessment Dietitian: Malnutrition Criteria Met Start: 12/21/21 15:59 Freq: Status: Active Protocol: Document 12/28/21 11:01 (Rec: 12/28/21 11:01 [id number]) Nutrition Malnutrition Evidence of Malnutrition Exists Yes Malnutrition (severe): Acute Illness/Injury Evidenced By Suboptimal Energy Intake ( Severe),Weight Loss (Severe) Intake Problem Inadequate Oral Intake Etiology related to altered GI function /bowel obstruction Signs/Symptoms as evidenced estimated PO intake meeting <75% of estimated energy needs >1 week Status Resolved Problem Clinical Problem Acute Disease or Injury Related Malnutrition Etiology Severe protein-calorie malnutrition in the context of acute illness related to altered GI function and inadequate oral intake Signs/Symptoms as evidenced by wt loss ~10-12 % x 3 months, poor oral intake meeting less than 50% estimated nutrition needs x past 2-3 weeks Status Active Problem Recommendation Dietitian Recommendations/Changes 1.) TPN day #6: 2L Clinimix 8% AA/14% dextrose solution at 84ml/hr with electrolytes, MVI , folic acid and trace elements with 250mL 20% lipid solution to provide 2093 calories and 160 g protein per day. 2.) Continue daily weights. 3.) Continue monitoring of labs/electrolytes. Lab / Micro Data Result Diagrams: 12/28/21 08:33 12/28/21 09:05 Labs: Laboratory Results - last 24 hr 12/27/21 13:33: POC Glucose 111 H 12/27/21 17:28: POC Glucose 130 H 12/28/21 00:35: POC Glucose 122 H 12/28/21 05:55: POC Glucose 134 H 12/28/21 08:33: WBC 8.3, RBC 3.35 L, Hgb 9.8 L, Hct 30.4 L, MCV 90.7, MCH 29.3, MCHC 32.2, RDW Std Deviation 54.3 H, RDW Coeff of Mohsen 16.7 H, Plt Count 230, MPV 10.4, Immature Gran % (Auto) 2.000 H, Neut % (Auto) 76.4 H, Lymph % (Auto) 7.4 L, [place] % (Auto) 10.8 H, Eos % (Auto) 2.8, Baso % (Auto) 0.6, Absolute Neuts (auto) 6.4, Absolute Lymphs (auto) 0.62 L, Nucleated RBC % 0 12/28/21 08:33: Sodium Cancelled, Potassium Cancelled, Chloride Cancelled, Carbon Dioxide Cancelled, Anion Gap Cancelled, BUN Cancelled, Creatinine Cancelled, Estim Creat Clear Calc Cancelled, Est GFR (MDRD) Af Amer Cancelled, Est GFR (MDRD) Non-Af Cancelled, BUN/Creatinine Ratio Cancelled, Glucose Cancelled, Calcium Cancelled, Magnesium Cancelled, Total Bilirubin Cancelled, AST Cancelled, ALT Cancelled, Alkaline Phosphatase Cancelled, Total Protein Cancelled, Albumin Cancelled, Globulin Cancelled, Albumin/Globulin Ratio Cancelled 12/28/21 09:05: Sodium 133 L, Potassium 3.7, Chloride 101, Carbon Dioxide 23.0, Anion Gap 9, BUN 28 H, Creatinine 0.48 L, Estim Creat Clear Calc 119.74, Est GFR (MDRD) Af Amer 176, Est GFR (MDRD) Non-Af 145, BUN/Creatinine Ratio 58.5 H, Glucose 129 H, Calcium 9.1, Magnesium 1.8, Total Bilirubin 0.30, AST 96 H, ALT 66 H, Alkaline Phosphatase 396 H, Total Protein 7.1, Albumin 1.7 L, Globulin 5.4 H, Albumin/Globulin Ratio 0.3 L Micro: Microbiology 12/20/21 09:40 Blood Culture (Wb) - Port Blood Culture - Final No growth in 5 days. 12/20/21 09:31 Blood Culture (Wb) - Anticubital Left Blood Culture - Final No growth in 5 days. 12/20/21 12:05 Urine, Clean Catch Urine Culture - Final Mixed Gram Positive Organisms Radiography Diagnostic Testing: Radiology Impression Small Bowel X-Ray 12/27/21 11:30 IMPRESSION: Retained oral contrast from a prior CT seen within the colon and rectum limits this examination. Despite limitations: Distended proximal small bowel with slow transit but otherwise no bowel obstruction as most of the contrast passes through the small and large bowel by 8.5 hours. Gastroesophageal reflux. Large left and trace right pleural effusions. Electronically Signed: Desmond Anderson MD at 1:08 EDT , Physical Exam Const Constitutional Narrative: Patient appears frustrated and states that she just wants to go home Resp normal respiratory effort GI GI Narrative: Mildly distended, mildly firm with palpation. Tender to palpation about her PEG tube. PEG tube is currently to gravity draining bilious fluid. Assessment & Plan Assessment/Plan (1) Bowel obstruction: QUALIFIERS: Intestinal obstruction type: unspecified Intestinal obstruction extent: partial Qualified Code(s): K56.600 - Partial intestinal obstruction, unspecified as to cause PLAN: Patient appears to have a partial obstruction with a mechanical blockage at the level of ligament of Treitz. Outside radiology read her small bowel series as consistent with no obstruction because there is disappearance of her contrast, however, patient confirms that she did have an episode of emesis between her films from 1630 and 1999 to explain the evacuation and absence of this contrast. In-house radiology agrees and has already sought resources to perform a GJ conversion of the patient's current PEG tube. These items are currently on order, but are anticipated to be in-house later this week. For the interim, I recommend Dulcolax suppositories to stimulate the bowel from below (as there has been propagation of oral contrast to the colon from CT exam on 12/22/2021 suggesting patient's blockage is incomplete). Additionally, as was already instituted yesterday, recommend placing PEG tube to gravity for gastric drainage as a means of decreasing her overall volume losses. Charges/Coding Visit Charges Inpatient E&M: 55458 Subs Hosp L2
[2021-12-28 15:00] VITALS: BP 129/91; PULSE 117; RESP 16; TEMP 36.7; O2SAT 97
[2021-12-28] MEDS: TPN - Clinimix E 8%-14% Soln 2,000 ML with Multivitamins 10 ML, Trace Elements 1 ML, Fo... 84 ML IV (15:12)
[2021-12-28] MEDS: Scopolamine 1mg/72hr Patch 1 PATCH TD (15:25)
[2021-12-28] MEDS: Fat Emulsions 20% 250 ML IV (15:52)
[2021-12-28 18:06] LABS: Bedside Glucose 108 mg/dL (74-106)
[2021-12-28 21:16] VITALS: BP 126/82; PULSE 126; RESP 18; TEMP 37.4; O2SAT 97
[2021-12-28 22:40] LABS: Bedside Glucose 101 mg/dL (74-106)
[2021-12-29 02:05] VITALS: BP 139/90; PULSE 122; RESP 18; TEMP 37.2; O2SAT 99
[2021-12-29] MEDS: Morphine 2 MG/ML Syringe IV ×6 (02:10→22:38)
[2021-12-29] MEDS: 0.9% Saline Lock 10 ML Syringe IV ×9 (02:10→22:38)
[2021-12-29] MEDS: LORazepam 2 MG/ML Syringe 0.5 MG IV ×3 (03:36→20:35)
[2021-12-29 04:28] LABS: Hematocrit 28.3 % (37-47); Hemoglobin 9.2 g/dL (12.0-15.0); Mean Corp Hgb Conc 32.5 g/dL (32-36); Mean Corpuscular Volume 89.3 fL (81-99); Mean Platelet Vol. 9.7 fl (6.2-12.0); Platelet Count 213 K/mm3 (150-450); RBC Distribution Width CV 16.4 % (11.6-14.6); RBC Distribution Width SD 53.1 fl (35.1-43.9); Red Blood Count 3.17 M/mm3 (4.2-5.4); White Blood Count 7.3 K/mm3 (4.4-11.0)
[2021-12-29 04:55] LABS: Anion Gap 9 (5-15); BUN 29 mg/dL (7-18); Calcium,Total 8.2 mg/dL (8.5-10.1); Chloride 100 mmol/L (98-107); Creatinine, Serum 0.36 mg/dL (0.55-1.02); EST Glomerular Filtration Rate 203 mL/min (>60); Est Glom Filt Rate - Afr Amer 246 mL/min (>60); Estimated Creatinine Clearance 159.65 ml/min; Glucose 116 mg/dL (74-106); Potassium 3.4 mmol/L (3.5-5.1); Sodium Level 132 mmol/L (136-145)
[2021-12-29] MEDS: Enoxaparin 40 MG/0.4 ML Syringe SC (05:47)
[2021-12-29 06:06] LABS: Bedside Glucose 115 mg/dL (74-106)
[2021-12-29 06:17] VITALS: PULSE 118; O2SAT 99
--- NOTE | 2021-12-29 07:27 | PN.HOSP_ITS ---
Subjective Subjective Patient seen admits to passing some flatus. Patient was seen by general surgery the day prior. Plan is for patient to undergo a GJ conversion of the patient's current PEG tube once materials are available. Objective Data Objective Data Vital Signs: Vital Signs Temp Pulse Resp BP Pulse Ox 98.9 F 118 H 18 139/90 H 99 12/29/21 02:05 12/29/21 06:17 12/29/21 02:05 12/29/21 02:05 12/29/21 06:17 Oxygen Flow Rate (L/min) 3 Oxygen Delivery Method Nasal Cannula Weight: 89.2 kg Body Mass Index (BMI) 32.9 Intake & Output: Intake and Output for Last 24 Hours 12/27/21 12/28/21 12/29/21 23:59 23:59 23:59 Intake Total 3231.55 / 3231.55 3243.65 / 3243.65 250 / 250 Output Total 3800 / 3800 3850 / 4750 900 / 900 Balance -568.45 / -568.45 -606.35 / -1506.35 -650 / -650 Medical Nutrition Assessment Dietitian: Malnutrition Criteria Met Start: 12/21/21 15:59 Freq: Status: Active Protocol: Document 12/28/21 11:01 (Rec: 12/28/21 11:01 [id number]) Nutrition Malnutrition Evidence of Malnutrition Exists Yes Malnutrition (severe): Acute Illness/Injury Evidenced By Suboptimal Energy Intake ( Severe),Weight Loss (Severe) Intake Problem Inadequate Oral Intake Etiology related to altered GI function /bowel obstruction Signs/Symptoms as evidenced estimated PO intake meeting <75% of estimated energy needs >1 week Status Resolved Problem Clinical Problem Acute Disease or Injury Related Malnutrition Etiology Severe protein-calorie malnutrition in the context of acute illness related to altered GI function and inadequate oral intake Signs/Symptoms as evidenced by wt loss ~10-12 % x 3 months, poor oral intake meeting less than 50% estimated nutrition needs x past 2-3 weeks Status Active Problem Recommendation Dietitian Recommendations/Changes 1.) TPN day #6: 2L Clinimix 8% AA/14% dextrose solution at 84ml/hr with electrolytes, MVI , folic acid and trace elements with 250mL 20% lipid solution to provide 2093 calories and 160 g protein per day. 2.) Continue daily weights. 3.) Continue monitoring of labs/electrolytes. Lab / Micro Data Result Diagrams: 12/29/21 04:10 12/29/21 04:10 Labs: Laboratory Results - last 24 hr 12/28/21 08:33: WBC 8.3, RBC 3.35 L, Hgb 9.8 L, Hct 30.4 L, MCV 90.7, MCH 29.3, MCHC 32.2, RDW Std Deviation 54.3 H, RDW Coeff of Mohsen 16.7 H, Plt Count 230, MPV 10.4, Immature Gran % (Auto) 2.000 H, Neut % (Auto) 76.4 H, Lymph % (Auto) 7.4 L , [place] % (Auto) 10.8 H, Eos % (Auto) 2.8, Baso % (Auto) 0.6, Absolute Neuts (auto) 6.4, Absolute Lymphs (auto) 0.62 L, Nucleated RBC % 0 12/28/21 08:33: Sodium Cancelled, Potassium Cancelled, Chloride Cancelled, Carbon Dioxide Cancelled, Anion Gap Cancelled, BUN Cancelled, Creatinine Cancelled, Estim Creat Clear Calc Cancelled, Est GFR (MDRD) Af Amer Cancelled, Est GFR (MDRD) Non-Af Cancelled, BUN/Creatinine Ratio Cancelled, Glucose Cancelled, Calcium Cancelled, Magnesium Cancelled, Total Bilirubin Cancelled, AST Cancelled, ALT Cancelled, Alkaline Phosphatase Cancelled, Total Protein Cancelled, Albumin Cancelled, Globulin Cancelled, Albumin/Globulin Ratio Cancelled 12/28/21 09:05: Sodium 133 L, Potassium 3.7, Chloride 101, Carbon Dioxide 23.0, Anion Gap 9, BUN 28 H, Creatinine 0.48 L, Estim Creat Clear Calc 119.74, Est GFR (MDRD) Af Amer 176, Est GFR (MDRD) Non-Af 145, BUN/Creatinine Ratio 58.5 H, Glucose 129 H, Calcium 9.1, Magnesium 1.8, Total Bilirubin 0.30, AST 96 H, ALT 66 H, Alkaline Phosphatase 396 H, Total Protein 7.1, Albumin 1.7 L, Globulin 5.4 H, Albumin/Globulin Ratio 0.3 L 12/28/21 17:59: POC Glucose 108 H 12/28/21 21:22: POC Glucose 101 12/29/21 04:10: WBC 7.3, RBC 3.17 L, Hgb 9.2 L, Hct 28.3 L, MCV 89.3, MCH 29.0, MCHC 32.5, RDW Std Deviation 53.1 H, RDW Coeff of Mohsen 16.4 H, Plt Count 213, MPV 9.7 12/29/21 04:10: Sodium 132 L, Potassium 3.4 L, Chloride 100, Carbon Dioxide 23.0, Anion Gap 9, BUN 29 H, Creatinine 0.36 L, Estim Creat Clear Calc 159.65, Est GFR (MDRD) Af Amer 246, Est GFR (MDRD) Non-Af 203, BUN/Creatinine Ratio 81.0 H, Glucose 116 H, Calcium 8.2 L 12/29/21 05:46: POC Glucose 115 H Micro: Microbiology 12/20/21 09:40 Blood Culture (Wb) - Port Blood Culture - Final No growth in 5 days. 12/20/21 09:31 Blood Culture (Wb) - Anticubital Left Blood Culture - Final No growth in 5 days. 12/20/21 12:05 Urine, Clean Catch Urine Culture - Final Mixed Gram Positive Organisms Radiography Diagnostic Testing: Radiology Impression Small Bowel X-Ray 12/27/21 11:30 IMPRESSION: Retained oral contrast from a prior CT seen within the colon and rectum limits this examination. Despite limitations: Distended proximal small bowel with slow transit but otherwise no bowel obstruction as most of the contrast passes through the small and large bowel by 8.5 hours. Gastroesophageal reflux. Large left and trace right pleural effusions. Electronically Signed: Desmond Anedrson MD at 1:08 EDT , ADDENDUM: 12/28/21 1636 Abdomen X-Ray 12/28/21 10:23 IMPRESSION: 1. No complete bowel obstruction. 2. Limited visualization of bowel on plain films. 3. Thoracic disease. Electronically Signed: Donal Marin MD at 14:32 EDT , Physical Exam Narrative GENERAL: cooperative HEENT: Atraumatic; EYES; Anicteric, Normal Conjunctiva NECK; supple, normal thyroid, RESPIRATORY: Diminished to auscultation CARDIOVASCULAR: Regular S1 S2, GI: soft, normoactive bowel sounds,, PEG tube in place : No Renal angle tenderness; EXTREMITIES: No edema, no clubbing, MUSCULOSKELETAL: no muscle wasting NEURO: Awake; no lateralizing signs. SKIN: No Rash PSYCH; Flat affect Assessment & Plan Assessment/Plan (1) Colon cancer: QUALIFIERS: Colon location: ascending Qualified Code(s): C18.2 - Malignant neoplasm of ascending colon (2) Malignant pleural effusion: PLAN: Patient is a 51-year-old lady with history of metastatic colon cancer who presented with abdominal pain constipation nausea and vomiting. CT of the abdomen and pelvis obtained on admission demonstrated progressive thickening of the ascending colon with findings suggestive of omental metastasis, left pleural effusion with left basilar infiltration/atelectasis and mild right basilar atelectasis. Admitted to regular nursing floor for further management 1. Abdominal pain ? CT on admission did show progressive thickening of the ascending colon with findings suggestive of omental metastasis. Consult was placed to GI patient was seen by Dr. Morfin who did perform EGD demonstrating esophagitis and duodenitis and excess gastric fluid. Patient had a removable PEG tube placed. 11/26/2021 Patient seen still has significant drainage by gravity from her PEG tube. CT of the abdomen ordered 12/26/2021 demonstrated multiple areas of bowel wall thickening with no evidence of obstruction no bowel dilatation. Case was discussed with Dr Schwarz with oncology decision was made to consult general surgery Case discussed with Dr. Sifuentes 12/28/2021; Patient underwent small bowel series on 12/27/2021 findings as below Distended proximal small bowel with slow transit but otherwise no bowel obstruction as most of the contrast passes through the small and large bowel by 8.5 hours. Patient however did not have any bowel movement do suspect the contrast might have been started through her NG tube which is currently hooked to gravity. Plan is to repeat KUB this a.m. Patient was also seen in consultation by Dr. Sifuentes with general surgery his notes and recommendations reviewed including decision not to proceed with any surgical intervention 12/29/2021; Patient seen admits to passing some flatus. Patient was seen by [facility] surgery the day prior. Plan is for patient to undergo a GJ conversion of the patient's current PEG tube once materials are av 2. Severe protein calorie malnutrition ? As evidenced by suboptimal energy intake and severe weight loss this is related to patient underlying metastatic colon cancer. Consult was placed to dietitian. TPN was recommended which has been initiated. Plan is for patient to be discharged home once case management is able to arrange for TPN to be administered at home 3. Stage IV: CA ? Patient currently being managed and followed by oncology 4. Depression with anxiety ? Patient is on escitalopram as well as buspirone 5. Class I obesity with BMI of 33.5 ? Weight loss advised 6. Hypokalemia ? Corrected per protocol 7. Hypomagnesemia -corrected per protocol 8. History of previous DVT/PE ? On Eliquis held for patient's procedure 9. DVT prophylaxis ? Enoxaparin 10. Anemia - Secondary to chronic disorder monitoring H&H and transfuse if patient becomes symptomatic or hemoglobin falls below 7 Charges/Coding Visit Charges Inpatient E&M: 69003 Subs Hosp L2
[2021-12-29 08:36] VITALS: BP 130/93; PULSE 127; RESP 16; TEMP 36.3; O2SAT 100
--- NOTE | 2021-12-29 09:39 | NURSING ---
Pt is requesting that someone shave her hair d/t it falling out. patient states it's just getting in my food, and is all falling out anyway. I just it gone. This nurse will use clippers to shave hair later this am if patient is still requesting this. Mother present in room as well.
[2021-12-29] MEDS: proCHLORPERazine 10 MG/2 ML Vial 5 MG IV ×4 (09:48→22:38)
[2021-12-29] MEDS: Pantoprazole Sodium 40 MG Tablet PO (09:57)
[2021-12-29] MEDS: Escitalopram Oxalate 20 MG Tablet PO (09:57)
[2021-12-29] MEDS: Polyethylene Glycol 3350 17 GM PACKET PO ×2 (09:57→20:56)
[2021-12-29] MEDS: busPIRone 5 MG Tablet 10 MG PO ×2 (09:57→20:56)
[2021-12-29] MEDS: Senna Tablet 1 TABLET PO ×2 (09:57→22:41)
--- NOTE | 2021-12-29 11:34 | NURSING ---
Pt's hair shaved per request with clippers. pt tolerated well. mother present as bedside.
[2021-12-29 12:00] LABS: Bedside Glucose 108 mg/dL (74-106)
[2021-12-29] MEDS: Ondansetron 4 MG/2 ML Vial IV (12:07)
[2021-12-29] MEDS: 0.9 % NaCl (Sterile) Posiflush 10 mL IV ×2 (13:46→22:38)
[2021-12-29 14:36] VITALS: BP 117/56; PULSE 110; RESP 20; TEMP 36.9; O2SAT 97
[2021-12-29] MEDS: TPN - Clinimix E 8%-14% Soln 2,000 ML with Multivitamins 10 ML, Trace Elements 1 ML, Fo... 84 ML IV (15:52)
--- NOTE | 2021-12-29 16:38 | PN.ONC_ITS ---
Subjective Subjective Upon entering the room patient is sitting upright in bed conversing with her son and mother. She complains of increased backache and irritability that she associates with being in the hospital. Verbalizes that she would be much more comfortable at home and wishes to be discharged tomorrow. States dyspnea is unchanged from yesterday has passed some flatus yesterday and today, but still no BM. Physical Exam Narrative ECOG 1-2 Const alert and oriented x3 Constitutional Narrative: Patient describes her mood as irritable HEENT Head and Scalp: normocephalic and atraumatic Eyes conjunctivae normal and no scleral icterus Eyes Narrative: Wears glasses Resp normal respiratory effort, no retractions and clear to auscultation bilaterally Resp Narrative: O2 per nasal cannula Cardio regular rate, regular rhythm, S1 normal heart sound and S2 normal heart sound GI GI Narrative: Gastrostomy tube is currently to gravity draining bilious fluid. Palpation: firm and tender Extremity normal to inspection Skin no rashes or lesions noted Neuro CN's II-XII intact bilaterally, moves all extremities and no focal motor deficits Psych Mood & Affect: depressed Vital Signs Temperature 98.4 F 12/29/21 14:36 Temperature Source Oral 12/29/21 14:36 Pulse Rate 110 H 12/29/21 14:36 Pulse Strength Normal (2+) 12/29/21 10:00 Respiratory Rate 20 H 12/29/21 14:36 Respiratory Effort 12/29/21 09:38 Respiratory Depth Normal 12/27/21 20:13 Respiratory Pattern Normal 12/27/21 20:13 Blood Pressure 117/56 L 12/29/21 14:36 Blood Pressure Mean 76 12/29/21 14:36 Blood Pressure Source Monitor 12/29/21 14:36 Blood Pressure Position Semi-Fowlers 12/29/21 14:36 Blood Pressure Location Left Arm 12/29/21 14:36 Baseline BP 119/85 12/23/21 20:10 Pulse Ox 97 12/29/21 14:36 Oxygen Delivery Method Nasal Cannula 12/29/21 14:36 Oxygen Flow Rate (L/min) 3 12/29/21 14:36 Laboratory Results - last 24 hr 12/28/21 17:59: POC Glucose 108 H 12/28/21 21:22: POC Glucose 101 12/29/21 04:10: WBC 7.3, RBC 3.17 L, Hgb 9.2 L, Hct 28.3 L, MCV 89.3, MCH 29.0, MCHC 32.5, RDW Std Deviation 53.1 H, RDW Coeff of Mohsen 16.4 H, Plt Count 213, MPV 9.7 12/29/21 04:10: Sodium 132 L, Potassium 3.4 L, Chloride 100, Carbon Dioxide 23.0, Anion Gap 9, BUN 29 H, Creatinine 0.36 L, Estim Creat Clear Calc 159.65, Est GFR (MDRD) Af Amer 246, Est GFR (MDRD) Non-Af 203, BUN/Creatinine Ratio 81.0 H, Glucose 116 H, Calcium 8.2 L 12/29/21 05:46: POC Glucose 115 H 12/29/21 11:55: POC Glucose 108 H Diagnostic Data Chest X-Ray 12/20/21 10:00 IMPRESSION: Increasing left pleural effusion with left basilar infiltration and/or atelectasis. Electronically Signed: Carlitos Roberts MD at 10:32 EDT , KUB X-Ray 12/22/21 09:37 IMPRESSION: The tip of the nasogastric tube is in the body of the stomach. Left pleural effusion with left basilar atelectasis and/or infiltrate. Electronically Signed: Carlitos Roberts MD at 9:59 EDT , Abdomen/Pelvis CT 12/26/21 12:05 IMPRESSION: Axillary lymphadenopathy. Hilar mediastinal lymphadenopathy. Bilateral lung consolidations or pleural effusions more prominent on the left. Demonstrate increase in comparison to the prior study. Fluid collection visualized surrounding the fundus of the stomach. Demonstrates increase in comparison to the prior study. Stranding of the peritoneal fat planes would recommend further evaluation to rule out omental caking. Left adrenal mass. Suboptimal evaluation of the uterus and ovaries. Extensive sclerotic bone lesions visualized. Bilateral inguinal lymphadenopathy is seen. Multiple areas of bowel wall thickening visualized but no evidence of obstruction or bowel dilation is seen. Electronically Signed: Juno Tracy MD at 16:20 EDT , ADDENDUM: 12/26/21 1701 Small Bowel X-Ray 12/27/21 11:30 IMPRESSION: Retained oral contrast from a prior CT seen within the colon and rectum limits this examination. Despite limitations: Distended proximal small bowel with slow transit but otherwise no bowel obstruction as most of the contrast passes through the small and large bowel by 8.5 hours. Gastroesophageal reflux. Large left and trace right pleural effusions. Electronically Signed: Desmond Anderson MD at 1:08 EDT , ADDENDUM: 12/28/21 1636 Abdomen X-Ray 12/28/21 10:23 IMPRESSION: 1. No complete bowel obstruction. 2. Limited visualization of bowel on plain films. 3. Thoracic disease. Electronically Signed: Donal Marin MD at 14:32 EDT , Assessment & Plan Assessment/Plan (1) Colon cancer: QUALIFIERS: Colon location: ascending Qualified Code(s): C18.2 - Malignant neoplasm of ascending colon (2) Bowel obstruction: QUALIFIERS: Intestinal obstruction extent: partial Intestinal obstruction type: unspecified Qualified Code(s): K56.600 - Partial intestinal obstruction, unspecified as to cause (3) At high risk for venous thromboembolism (VTE): PLAN: Ms. 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 Now with progressive disease. Care has been complicated by bowel obstruction. - Surgery has recommended against surgical intervention at this time citing several concerns including postop ileus and delay in starting second line oncolytics. It has been suggested the current G-tube could be transitioned to a GJ tube if narrowing is identified in the duodenum. Discussed case with Dr. Peck at [facility], who reviewed imaging. Because of disease involvement in the lung HIPEC is not a consideration and with the extent of peritoneal carcinomatosis present, it is likely relieving this obstruction surgically would expose additional areas of obstruction from disease. He did recommend increasing PPI to 40 mg BID, adding Reglan (if no drug-drug interactions present) and dexamethasone 8 mg daily. I discussed implementing these changes with the patient. She is adamant, she would like to go home. She is emotionally distraught from being away from her son and believes she would be more comfortable there. I agree for quality of life reasons she should be discharged as soon as possible with the aforementioned prescriptions and with support from palliative care and home health. 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 - Encouraged the patient to ambulate as much as possible in her room as she is at high risk for VTE. Continue LMWH during admission. Case discussed with Dr. Blue who was in agreement with aforementioned plan. Patient to follow closely with [facility] upon discharge.
[2021-12-29 18:20] LABS: Bedside Glucose 108 mg/dL (74-106)
[2021-12-29 18:23] VITALS: BP 125/85; PULSE 112; RESP 18; TEMP 36.6; O2SAT 98
[2021-12-30] VITALS (11 sets, daily range): BP systolic 115–207; BP diastolic 78–149; PULSE 119–131; RESP 13–124; TEMP 36.1–37.3; O2SAT 91–98
[2021-12-30] MEDS: 0.9% Saline Lock 10 ML Syringe IV ×8 (00:48→23:55)
[2021-12-30] MEDS: LORazepam 2 MG/ML Syringe 0.5 MG IV ×3 (00:48→21:26)
[2021-12-30 01:06] LABS: Bedside Glucose 120 mg/dL (74-106)
[2021-12-30] MEDS: Morphine 2 MG/ML Syringe IV ×4 (02:43→21:26)
[2021-12-30] MEDS: 0.9 % NaCl (Sterile) Posiflush 10 mL IV (02:43)
[2021-12-30] MEDS: proCHLORPERazine 10 MG/2 ML Vial 5 MG IV ×4 (02:44→22:27)
[2021-12-30 06:29] LABS: Hematocrit 29.4 % (37-47); Hemoglobin 9.4 g/dL (12.0-15.0); Mean Corpuscular Hgb 28.7 pg (27.0-32.0); Mean Corpuscular Volume 89.9 fL (81-99); Mean Platelet Vol. 10.6 fl (6.2-12.0); Platelet Count 259 K/mm3 (150-450); RBC Distribution Width CV 16.7 % (11.6-14.6); RBC Distribution Width SD 54.1 fl (35.1-43.9); Red Blood Count 3.27 M/mm3 (4.2-5.4)
[2021-12-30 06:51] LABS: Bedside Glucose 118 mg/dL (74-106)
[2021-12-30 06:55] LABS: Anion Gap 9 (5-15); BUN 35 mg/dL (7-18); BUN/Creat Ratio 83.7 RATIO (10-20); Calcium,Total 8.6 mg/dL (8.5-10.1); Chloride 99 mmol/L (98-107); Creatinine, Serum 0.42 mg/dL (0.55-1.02); EST Glomerular Filtration Rate 170 mL/min (>60); Est Glom Filt Rate - Afr Amer 205 mL/min (>60); Estimated Creatinine Clearance 136.84 ml/min; Glucose 113 mg/dL (74-106); Potassium 3.8 mmol/L (3.5-5.1); Sodium Level 132 mmol/L (136-145); Triglycerides 252 mg/dL
--- NOTE | 2021-12-30 07:27 | PN.HOSP_ITS ---
Subjective Subjective Patient seen insistent on being discharged home. Plan is for patient to undergo GJ conversion from her PEG tube prior to discharge Objective Data Objective Data Vital Signs: Vital Signs Temp Pulse Resp BP Pulse Ox 98.7 F 120 H 18 132/81 H 98 12/30/21 06:30 12/30/21 06:30 12/30/21 06:30 12/30/21 06:30 12/30/21 06:30 Oxygen Flow Rate (L/min) 3 Oxygen Delivery Method Room Air Weight: 88.1 kg Body Mass Index (BMI) 32.9 Intake & Output: Intake and Output for Last 24 Hours 12/28/21 12/29/21 12/30/21 23:59 23:59 23:59 Intake Total 3243.65 / 3243.65 3311.2 / 3311.2 530 / 530 Output Total 3850 / 4750 3650 / 4850 1200 / 1200 Balance -606.35 / -1506.35 -338.8 / -1538.8 -670 / -670 Medical Nutrition Assessment Dietitian: Malnutrition Criteria Met Start: 12/21/21 15:59 Freq: Status: Active Protocol: Document 12/28/21 11:01 (Rec: 12/28/21 11:01 [id number]) Nutrition Malnutrition Evidence of Malnutrition Exists Yes Malnutrition (severe): Acute Illness/Injury Evidenced By Suboptimal Energy Intake ( Severe),Weight Loss (Severe) Intake Problem Inadequate Oral Intake Etiology related to altered GI function /bowel obstruction Signs/Symptoms as evidenced estimated PO intake meeting <75% of estimated energy needs >1 week Status Resolved Problem Clinical Problem Acute Disease or Injury Related Malnutrition Etiology Severe protein-calorie malnutrition in the context of acute illness related to altered GI function and inadequate oral intake Signs/Symptoms as evidenced by wt loss ~10-12 % x 3 months, poor oral intake meeting less than 50% estimated nutrition needs x past 2-3 weeks Status Active Problem Recommendation Dietitian Recommendations/Changes 1.) TPN day #6: 2L Clinimix 8% AA/14% dextrose solution at 84ml/hr with electrolytes, MVI , folic acid and trace elements with 250mL 20% lipid solution to provide 2093 calories and 160 g protein per day. 2.) Continue daily weights. 3.) Continue monitoring of labs/electrolytes. Lab / Micro Data Result Diagrams: 12/30/21 06:00 12/30/21 06:00 Labs: Laboratory Results - last 24 hr 12/29/21 11:55: POC Glucose 108 H 12/29/21 18:14: POC Glucose 108 H 12/30/21 00:34: POC Glucose 120 H 12/30/21 06:00: WBC 8.0, RBC 3.27 L, Hgb 9.4 L, Hct 29.4 L, MCV 89.9, MCH 28.7, MCHC 32.0, RDW Std Deviation 54.1 H, RDW Coeff of Mohsen 16.7 H, Plt Count 259, MPV 10.6 12/30/21 06:00: Sodium 132 L, Potassium 3.8, Chloride 99, Carbon Dioxide 24.0, Anion Gap 9, BUN 35 H, Creatinine 0.42 L, Estim Creat Clear Calc 136.84, Est GFR (MDRD) Af Amer 205, Est GFR (MDRD) Non-Af 170, BUN/Creatinine Ratio 83.7 H, Glucose 113 H, Calcium 8.6, Triglycerides 252 H 12/30/21 06:35: POC Glucose 118 H Micro: Microbiology 12/20/21 09:40 Blood Culture (Wb) - Port Blood Culture - Final No growth in 5 days. 12/20/21 09:31 Blood Culture (Wb) - Anticubital Left Blood Culture - Final No growth in 5 days. 12/20/21 12:05 Urine, Clean Catch Urine Culture - Final Mixed Gram Positive Organisms Physical Exam Narrative GENERAL: cooperative HEENT: Atraumatic; EYES; Anicteric, Normal Conjunctiva NECK; supple, normal thyroid, RESPIRATORY: Diminished to auscultation CARDIOVASCULAR: Regular S1 S2, GI: soft, normoactive bowel sounds,, PEG tube in place : No Renal angle tenderness; EXTREMITIES: No edema, no clubbing, MUSCULOSKELETAL: no muscle wasting NEURO: Awake; no lateralizing signs. SKIN: No Rash PSYCH; Flat affect Assessment & Plan Assessment/Plan (1) Colon cancer: QUALIFIERS: Colon location: ascending Qualified Code(s): C18.2 - Malignant neoplasm of ascending colon (2) Malignant pleural effusion: PLAN: Patient is a 51-year-old lady with history of metastatic colon cancer who presented with abdominal pain constipation nausea and vomiting. CT of the abdomen and pelvis obtained on admission demonstrated progressive thickening of the ascending colon with findings suggestive of omental meta stasis, left pleural effusion with left basilar infiltration/atelectasis and mild right basilar atelectasis. Admitted to regular nursing floor for further management 1. Abdominal pain ? CT on admission did show progressive thickening of the ascending colon with findings suggestive of omental metastasis. Consult was placed to GI patient was seen by Dr. Morfin who did perform EGD demonstrating esophagitis and duodenitis and excess gastric fluid. Patient had a removable PEG tube placed. 11/26/2021 Patient seen still has significant drainage by gravity from her PEG tube. CT of the abdomen ordered 12/26/2021 demonstrated multiple areas of bowel wall thickening with no evidence of obstruction no bowel dilatation. Case was discussed with Dr Schwarz with oncology decision was made to consult general surgery Case discussed with Dr. Sifuentes 12/28/2021; Patient underwent small bowel series on 12/27/2021 findings as below Distended proximal small bowel with slow transit but otherwise no bowel obstruction as most of the contrast passes through the small and large bowel by 8.5 hours. Patient however did not have any bowel movement do suspect the contrast might have been started through her NG tube which is currently hooked to gravity. Plan is to repeat KUB this a.m. Patient was also seen in consultation by Dr. Sifuentes with general surgery his notes and recommendations reviewed including decision not to proceed with any surgical intervention 12/29/2021; Patient seen admits to passing some flatus. Patient was seen by general surgery the day prior. Plan is for patient to undergo a GJ conversion of the patient's current PEG tube once materials are available 12/30/2021; had an extensive discussion with oncology, [place]ou who had spoken to surgical oncologist Dr. Shelia fierro at [facility] who recommended conservative management at this point. Patient also did express the desire to be discharged home. Case management subsequently consulted to assist with the discharge process once patient GJ conversion has been performed 2. Severe protein calorie malnutrition ? As evidenced by suboptimal energy intake and severe weight loss this is related to patient underlying metastatic colon cancer. Consult was placed to dietitian. TPN was recommended which has been initiated. Plan is for patient to be discharged home once case management is able to arrange for TPN to be administered at home 3. Stage IV: CA ? Patient currently being managed and followed by oncology 4. Depression with anxiety ? Patient is on escitalopram as well as buspirone 5. Class I obesity with BMI of 33.5 ? Weight loss advised 6. Hypokalemia ? Corrected per protocol 7. Hypomagnesemia -corrected per protocol 8. History of previous DVT/PE ? On Eliquis held for patient's procedure 9. DVT prophylaxis ? Enoxaparin 10. Anemia - Secondary to chronic disorder monitoring H&H and transfuse if patient becomes symptomatic or hemoglobin falls below 7 Charges/Coding Visit Charges Inpatient E&M: 96664 Subs Hosp L2
--- NOTE | 2021-12-30 07:35 | RAD_ITS ---
CLINICAL HISTORY: Female, 51 years old with malfunctioning gastrostomy tube, conversion to gastrojejunostomy tube requested. PROCEDURE: Percutaneous gastrostomy tube conversion to gastrojejunostomy tube FLUOROSCOPY TIME (if supplied): (10:20) minutes/seconds TECHNIQUE: All elements of maximal sterile barrier technique followed, including US elements as applicable) CONSENT: Informed, written consent was obtained from the patient, prior to procedure following discussion of risks, benefits, alternatives and personnel. Patient agreed to proceed. PERFORMING PHYSICIAN: Moe Tracy MD DATE OF PROCEDURE: 12/30/2021 GUNSTOCK SPRAY UNIT FEEDER: None ESTIMATED BLOOD LOSS: Negligible SPECIMENS REMOVED: None COMPLICATIONS: None FLUOROSCOPY TIME (if supplied): (10:20) minutes/seconds SEDATION: Conscious sedation VERSED and FENTANYL. COMPARISON: 12/28/2021 TECHNIQUE: Patient was positioned supine on the fluoroscopy table. The existing percutaneous gastrostomy tube and the overlying skin and subcutaneous soft tissues were then prepped and draped in the usual sterile manner. Contrast and air were injected into the stomach delineating the antrum and pyloric canal. A 5 Tristanian BERENSTEIN catheter was then inserted in tandem with an 0.035 angled Glidewire and they were used to access the distal stomach, the wire was removed and contrast was injected through the catheter opacifying the gastric outlet and the proximal duodenum. Additional air, contrast and saline were injected through the BERENSTEIN catheter to delineate the gastric outlet. The Glidewire was then reintroduced and was used in tandem with the catheter to cannulate the gastric outlet and both advanced into the distal duodenum. The Glidewire was then exchanged for a stiff AMPLATZ wire. A percutaneous gastrojejunostomy tube was then inserted over the AMPLATZ wire through the stomach and duodenum into the jejunum, contrast injection confirmed positioning. The retention balloon was then inflated after which contrast was injected through the stomach port confirming positioning. The tube was then secured to the skin and sterile dressing was applied. The patient tolerated the procedure well with no immediate complications and was transferred in stable condition. RAD/Fluoroscopy 1 Hr or Less IMPRESSION: Exchange of percutaneous gastrostomy tube for a percutaneous gastrojejunostomy tube, jejunostomy tube tip in the distal duodenum Tube ready for immediate use. Electronically Signed: Juno Tracy MD at 14:51 EDT ,
--- NOTE | 2021-12-30 07:58 | PN.SURG_ITS ---
Subjective Subjective Seen and examined during AM rounds. She is found resting in a chair. She appears more pale and depressed. She states that she did not rest well overnight. She states that she has ongoing flatus but no bowel movement. Objective Data Objective Data Vital Signs: Vital Signs Temp Pulse Resp BP Pulse Ox 98.7 F 120 H 18 132/81 H 98 12/30/21 06:30 12/30/21 06:30 12/30/21 06:30 12/30/21 06:30 12/30/21 06:30 Oxygen Flow Rate (L/min) 3 Oxygen Delivery Method Room Air Weight: 194 lb 3.636 oz Body Mass Index (BMI) 32.9 Intake & Output: Intake and Output for Last 24 Hours 12/28/21 12/29/21 12/30/21 23:59 23:59 23:59 Intake Total 3243.65 / 3243.65 3311.2 / 3311.2 530 / 530 Output Total 3850 / 4750 3650 / 4850 1200 / 1200 Balance -606.35 / -1506.35 -338.8 / -1538.8 -670 / -670 Medical Nutrition Assessment Dietitian: Malnutrition Criteria Met Start: 12/21/21 15:59 Freq: Status: Active Protocol: Document 12/28/21 11:01 (Rec: 12/28/21 11:01 [id number]) Nutrition Malnutrition Evidence of Malnutrition Exists Yes Malnutrition (severe): Acute Illness/Injury Evidenced By Suboptimal Energy Intake ( Severe),Weight Loss (Severe) Intake Problem Inadequate Oral Intake Etiology related to altered GI function /bowel obstruction Signs/Symptoms as evidenced estimated PO intake meeting <75% of estimated energy needs >1 week Status Resolved Problem Clinical Problem Acute Disease or Injury Related Malnutrition Etiology Severe protein-calorie malnutrition in the context of acute illness related to altered GI function and inadequate oral intake Signs/Symptoms as evidenced by wt loss ~10-12 % x 3 months, poor oral intake meeting less than 50% estimated nutrition needs x past 2-3 weeks Status Active Problem Recommendation Dietitian Recommendations/Changes 1.) TPN day #6: 2L Clinimix 8% AA/14% dextrose solution at 84ml/hr with electrolytes, MVI , folic acid and trace elements with 250mL 20% lipid solution to provide 2093 calories and 160 g protein per day. 2.) Continue daily weights. 3.) Continue monitoring of labs/electrolytes. Lab / Micro Data Result Diagrams: 12/30/21 06:00 12/30/21 06:00 Labs: Laboratory Results - last 24 hr 12/29/21 11:55: POC Glucose 108 H 12/29/21 18:14: POC Glucose 108 H 12/30/21 00:34: POC Glucose 120 H 12/30/21 06:00: WBC 8.0, RBC 3.27 L, Hgb 9.4 L, Hct 29.4 L, MCV 89.9, MCH 28.7, MCHC 32.0, RDW Std Deviation 54.1 H, RDW Coeff of Mohsen 16.7 H, Plt Count 259, MPV 10.6 12/30/21 06:00: Sodium 132 L, Potassium 3.8, Chloride 99, Carbon Dioxide 24.0, Anion Gap 9, BUN 35 H, Creatinine 0.42 L, Estim Creat Clear Calc 136.84, Est GFR (MDRD) Af Amer 205, Est GFR (MDRD) Non-Af 170, BUN/Creatinine Ratio 83.7 H, Gl ucose 113 H, Calcium 8.6, Triglycerides 252 H 12/30/21 06:35: POC Glucose 118 H Micro: Microbiology 12/20/21 09:40 Blood Culture (Wb) - Port Blood Culture - Final No growth in 5 days. 12/20/21 09:31 Blood Culture (Wb) - Anticubital Left Blood Culture - Final No growth in 5 days. 12/20/21 12:05 Urine, Clean Catch Urine Culture - Final Mixed Gram Positive Organisms Physical Exam Const no apparent distress Resp normal respiratory effort GI GI Narrative: Nondistended, mildly firm, improved tenderness of the left upper quadrant?otherwise unremarkable with palpation. Patient's PEG tube draining green bilious fluid via gravity Assessment & Plan Assessment/Plan (1) Bowel obstruction: QUALIFIERS: Intestinal obstruction type: unspecified Intestinal obstruction extent: partial Qualified Code(s): K56.600 - Partial intestinal obs truction, unspecified as to cause PLAN: Patient hospital day 9 for obstructive GI symptoms. She is due to go for PEG tube conversion to GJ today. I have also ordered her a suppository to try to stimulate further bowel motility as she has signs most consistent with a partial obstructive given passage of contrast from prior exams and ongoing flatus. Charges/Coding Visit Charges Inpatient E&M: 73452 Subs Hosp L2
--- NOTE | 2021-12-30 08:36 | NURSING ---
Patient off unit to radiology.
[2021-12-30] MEDS: Midazolam 2 MG/2 ML Syringe IV ×3 (09:18→10:23)
[2021-12-30] MEDS: fentaNYL 100 MCG/2 ML Ampul IV ×3 (09:19→10:23)
[2021-12-30] MEDS: Lidocaine 2% (20 ml mdv) 20 ML Vial INFILT (09:28)
--- NOTE | 2021-12-30 11:11 | CASEMGMT ---
Social Work Note SW attempted to meet with pt to provide additional support. Pt is currently off the floor. SW will attempt to meet with pt as time allows. Patience Juan TUBE STATION ATTENDANT, TELEPHONE ASSEMBLER
[2021-12-30] MEDS: Escitalopram Oxalate 20 MG Tablet PO (12:14)
[2021-12-30] MEDS: busPIRone 5 MG Tablet 10 MG PO (12:14)
[2021-12-30] MEDS: Senna Tablet 1 TABLET PO ×2 (12:14→21:28)
[2021-12-30] MEDS: Pantoprazole Sodium 40 MG Tablet PO (12:14)
[2021-12-30] MEDS: Polyethylene Glycol 3350 17 GM PACKET PO ×2 (12:14→21:28)
[2021-12-30] MEDS: Enoxaparin 40 MG/0.4 ML Syringe SC (12:15)
--- NOTE | 2021-12-30 12:49 | CASEMGMT ---
TC to [employer] to verify O2 rx, pt is ordered 2L continuous per Dave.
--- NOTE | 2021-12-30 14:48 | CASEMGMT ---
Addendum entered by Sally Hurtado 12/30/21 15:18: BENITO REYES in to pt room to update that [facility] will follow. Pt sitting up in chair, states she is bloated and has vomited. She states she feels like she is going to sit up here and . Pt states she does want treatment, stating I have to for my son. Pt aware that [facility] has accepted and will start when she is ready to dc home. Pt states she has done TF in the past and is comfortable with it. Updated pt nurse and SW on conversation. Addendum entered by Sally Hurtado 12/30/21 14:52: Spoke with hospitalist who states pt will be here through the weekend and TF will be started. Notified Magali at [facility] as well as Linda at [facility].BENITO REYES to follow. Original Note: BENITO REYES notified in rounds this AM that pt will be dc'd on TPN. Faxed referral again to [facility], tc to Magali at [facility] to review referral. Pt received GJ tube this am, awaiting answer if pt will receive TPN or receive TF. Nurse clarifying. Notified Magali at [facility] of this. She states they can see pt either or Sunday but not Sunday.
--- NOTE | 2021-12-30 15:11 | CASEMGMT ---
Addendum entered by Patience Juan 12/30/21 15:43: SW back in to speak with pt as SW was updated pt feels that if she remains at [facility] she is doing to . SW in to speak with pt. Pt states she is being told one day that she is going home and then the next day she is told she is not going home. Pt states that she lost her 13 year old daughter to cancer in 2005 and pt states she lived the remaining of her life in [facility]. Pt states that's why I feel like I am going to here. SW offered support to pt. Pt states I am getting so depressed here. SW validated pt's feelings. Pt states she does have history of depression and states she takes Buspar and Lexapro. Pt states that it was years ago that she went to [facility] for counseling but states it didn't really help. Pt states she was trying to get into [facility] support group but COVID hit and they stopped having it. Pt states she needs to get into counseling with the same people who have cancer who knows what she is going through. SW asked pt if she was provided a list of Cancer Support Groups (per previous notes, Jennifer HOLLANDW provided pt with Cancer Diagnosis support groups) and pt confirms she received the list. Pt denied any history of suicidal thoughts/plans/ideations. Pt denied any current suicidal thoughts/plans/ideations. SW asked pt if she was buddhism. Pt states that she is Gnosticism and committing suicide is a Sin. SW asked pt if she wants to speak with [facility] Diesel Technician Mechanic and pt states not right now. Pt confirms that she would like to still receive treatment and her son is main motivation to continue to receive treatment. SW provided much support to pt. Pt denied additional needs or concerns at this time. Original Note: Social Work Note SW in to speak with pt and provided support to pt. Pt was just informed that she will have to stay at [facility] through the weekend. SW offered support to pt. Pt states that is not the news she wanted to hear. Pt states that she wants to go home. SW explained that the steps that are being taken are being done to try and get pt home. SW offered much support to pt. Pt states that she has a good support system. SW asked pt if there was any emotions, things in her head, that she wanted to talk about with this worker and pt states I just want to go home. Pt states home is comfortable and she will do better in her home. Additional support provided. Pt denied additional needs or concerns at this time. SW to remain available to provide additional support. Patience Juan TOY ASSEMBLY SUPERVISOR, REPAIRER PUMP
[2021-12-30] MEDS: Bisacodyl 10 MG Suppository RC (15:21)
[2021-12-30] MEDS: [UNRECOGNIZED DRUG - NUTRITION] 84 ML IV (16:52)
[2021-12-30] MEDS: Fat Emulsions 20% 250 ML IV (16:52)
[2021-12-30 18:40] LABS: Bedside Glucose 124 mg/dL (74-106)
--- NOTE | 2021-12-30 22:26 | NURSING ---
Patient refused blood sugar check tonight. She said she would allow it to be checked in the morning.
[2021-12-30] MEDS: Ondansetron 4 MG/2 ML Vial IV (23:52)
[2021-12-31] VITALS (13 sets, daily range): BP systolic 118–155; BP diastolic 64–96; PULSE 105–124; RESP 16–20; TEMP 36.4–36.9; O2SAT 96–100; BMI 33.3
[2021-12-31] MEDS: Morphine 2 MG/ML Syringe IV ×3 (01:14→21:39)
[2021-12-31] MEDS: 0.9% Saline Lock 10 ML Syringe IV ×7 (01:18→18:54)
[2021-12-31] MEDS: LORazepam 2 MG/ML Syringe 0.5 MG IV ×4 (01:48→21:28)
[2021-12-31] MEDS: proCHLORPERazine 10 MG/2 ML Vial 5 MG IV ×2 (05:01→12:24)
[2021-12-31] MEDS: Enoxaparin 40 MG/0.4 ML Syringe SC (05:07)
[2021-12-31 06:40] LABS: Bedside Glucose 165 mg/dL (74-106)
[2021-12-31 07:34] LABS: Hematocrit 29.5 % (37-47); Hemoglobin 9.6 g/dL (12.0-15.0); Mean Corp Hgb Conc 32.5 g/dL (32-36); Mean Corpuscular Volume 89.1 fL (81-99); Mean Platelet Vol. 10.9 fl (6.2-12.0); Platelet Count 296 K/mm3 (150-450); RBC Distribution Width CV 16.6 % (11.6-14.6); RBC Distribution Width SD 53.6 fl (35.1-43.9); Red Blood Count 3.31 M/mm3 (4.2-5.4); White Blood Count 9.8 K/mm3 (4.4-11.0)
--- NOTE | 2021-12-31 07:40 | PCM.PN.HOSP ---
Subjective Subjective Patient underwent GJ tube placement by interventional radiology the day prior. Patient to however fell out. Consult placed to general surgery. Plan for patient to undergo tube replacement and anesthesia in OR. Patient is very tearful and distraught and is very insistent on being discharged home. She however wants to remain full code at this point Objective Data Objective Data Vital Signs: Vital Signs Temp Pulse Resp BP Pulse Ox 97.7 F L 115 H 20 H 143/85 H 96 12/31/21 04:48 12/31/21 04:48 12/31/21 04:48 12/31/21 04:48 12/31/21 07:27 Oxygen Flow Rate (L/min) [1103 3 ] Oxygen Flow Rate (L/min) [1058 3 ] Oxygen Flow Rate (L/min) [1053 3 ] Oxygen Flow Rate (L/min) [1048 3 ] Oxygen Flow Rate (L/min) [1043 3 ] Oxygen Flow Rate (L/min) [1038 3 ] Oxygen Flow Rate (L/min) [1033 3 ] Oxygen Flow Rate (L/min) [1028 3 ] Oxygen Flow Rate (L/min) [1023 3 ] Oxygen Flow Rate (L/min) [1013 3 ] Oxygen Flow Rate (L/min) [1008 3 ] Oxygen Flow Rate (L/min) [10] 3 Oxygen Flow Rate (L/min) [9] 3 Oxygen Flow Rate (L/min) [7] 3 Oxygen Flow Rate (L/min) [6] 3 Oxygen Flow Rate (L/min) [5] 3 Oxygen Flow Rate (L/min) [4] 3 Oxygen Flow Rate (L/min) [3] 3 Oxygen Flow Rate (L/min) [2] 3 Oxygen Flow Rate (L/min) [1 ( 2 Initial Baseline)] Oxygen Flow Rate (L/min) 3 Oxygen Delivery Method [1103] Nasal Cannula Oxygen Delivery Method [1058] Nasal Cannula Oxygen Delivery Method [1053] Nasal Cannula Oxygen Delivery Method [1048] Nasal Cannula Oxygen Delivery Method [1043] Nasal Cannula Oxygen Delivery Method [1038] Nasal Cannula Oxygen Delivery Method [1033] Nasal Cannula Oxygen Delivery Method [1028] Nasal Cannula Oxygen Delivery Method [1023] Nasal Cannula Oxygen Delivery Method [13] Nasal Cannula Oxygen Delivery Method [1013] Nasal Cannula Oxygen Delivery Method [1008] Nasal Cannula Oxygen Delivery Method [10] Nasal Cannula Oxygen Delivery Method [9] Nasal Cannula Oxygen Delivery Method [8] Nasal Cannula Oxygen Delivery Method [7] Nasal Cannula Oxygen Delivery Method [6] Nasal Cannula Oxygen Delivery Method [5] Nasal Cannula Oxygen Delivery Method [4] Nasal Cannula Oxygen Delivery Method [3] Nasal Cannula Oxygen Delivery Method [2] Nasal Cannula Oxygen Delivery Method [1 ( Nasal Cannula Initial Baseline)] Oxygen Delivery Method Nasal Cannula Weight: 88.1 kg Body Mass Index (BMI) 32.9 Intake & Output: Intake and Output for Last 24 Hours 12/29/21 12/30/21 12/31/21 23:59 23:59 23:59 Intake Total 3311.2 / 3311.2 3221.2 / 3321.2 750 / 750 Output Total 3650 / 4850 2300 / 2950 650 / 650 Balance -338.8 / -1538.8 921.2 / 371.2 100 / 100 Medical Nutrition Assessment Dietitian: Malnutrition Criteria Met Start: 12/21/21 15:59 Freq: Status: Active Protocol: Document 12/30/21 16:50 AG (Rec: 12/30/21 16:50 AG [id number]) Nutrition Malnutrition Evidence of Malnutrition Exists Yes Malnutrition (severe): Acute Illness/Injury Evidenced By Suboptimal Energy Intake ( Severe),Weight Loss (Severe) Intake Problem Inadequate Oral Intake Etiology related to altered GI function /bowel obstruction Signs/Symptoms as evidenced estimated PO intake meeting <75% of estimated energy needs >1 week Status Resolved Problem Clinical Problem Acute Disease or Injury Related Malnutrition Etiology Severe protein-calorie malnutrition in the context of acute illness related to altered GI function and inadequate oral intake Signs/Symptoms as evidenced by wt loss ~10-12 % x 3 months, poor oral intake meeting less than 50% estimated nutrition needs x past 2-3 weeks Status Active Problem Recommendation Dietitian Recommendations/Changes 1.) Consult to renew TPN today per verbal order from Dr. Tyson. TPN day #8: 2L Clinimix 8% AA/ 14% dextrose solution at 84ml/ hr and 250mL 20% lipid solution to provide 2093 calories and 160 g protein per day. No MVI, trace minerals, or folic acid d/t delayed time of order. 2.) Continue daily weights. 3.) Continue monitoring of labs/electrolytes. 4.) Plans to initiate enteral nutrition via PEJ if pt has a bowel movement. Will follow and provide recommendations as initiated. Lab / Micro Data Result Diagrams: 12/31/21 06:39 12/31/21 06:39 Labs: Laboratory Results - last 24 hr 12/30/21 18:37: POC Glucose 124 H 12/31/21 06:34: POC Glucose 165 H 12/31/21 06:39: WBC 9.8, RBC 3.31 L, Hgb 9.6 L, Hct 29.5 L, MCV 89.1, MCH 29.0, MCHC 32.5, RDW Std Deviation 53.6 H, RDW Coeff of Mohsen 16.6 H, Plt Count 296, MPV 10.9 Micro: Microbiology 12/20/21 09:40 Blood Culture (Wb) - Port Blood Culture - Final No growth in 5 days. 12/20/21 09:31 Blood Culture (Wb) - Anticubital Left Blood Culture - Final No growth in 5 days. 12/20/21 12:05 Urine, Clean Catch Urine Culture - Final Mixed Gram Positive Organisms Radiography Diagnostic Testing: Radiology Impression Fluoroscopy 12/30/21 07:35 IMPRESSION: Exchange of percutaneous gastrostomy tube for a percutaneous gastrojejunostomy tube, jejunostomy tube tip in the distal duodenum Tube ready for immediate use. Electronically Signed: Juno Tracy MD at 14:51 EDT Reading Location ID and State: [facility] Tel , Service support , Physical Exam Narrative GENERAL: Tearful HEENT: Atraumatic; EYES; Anicteric, Normal Conjunctiva NECK; supple, normal thyroid, RESPIRATORY: Diminished to auscultation CARDIOVASCULAR: Regular S1 S2, GI: soft, normoactive bowel sounds,, PEG tube in place : No Renal angle tenderness; EXTREMITIES: No edema, no clubbing, MUSCULOSKELETAL: no muscle wasting NEURO: Awake; no lateralizing signs. SKIN: No Rash PSYCH; Flat affect Assessment & Plan Assessment/Plan (1) Colon cancer: QUALIFIERS: Colon location: ascending Qualified Code(s): C18.2 - Malignant neoplasm of ascending colon (2) Malignant pleural effusion: PLAN: Patient is a 51-year-old lady with history of metastatic colon cancer who presented with abdominal pain constipation nausea and vomiting. CT of the abdomen and pelvis obtained on admission demonstrated progressive thickening of the ascending colon with findings suggestive of omental metastasis, left pleural effusion with left basilar infiltration/atelectasis and mild right basilar atelectasis. Admitted to regular nursing floor for further management 1. Abdominal pain ? CT on admission did show progressive thickening of the ascending colon with findings suggestive of omental metastasis. Consult was placed to GI patient was seen by Dr. Morfin who did perform EGD demonstrating esophagitis and duodenitis and excess gastric fluid. Patient had a removable PEG tube placed. 11/26/2021 Patient seen still has significant drainage by gravity from her PEG tube. CT of the abdomen ordered 12/26/2021 demonstrated multiple areas of bowel wall thickening with no evidence of obstruction no bowel dilatation. Case was discussed with Dr Schwarz with oncology decision was made to consult general surgery Case discussed with Dr. Sifuentes 12/28/2021; Patient underwent small bowel series on 12/27/2021 findings as below Distended proximal small bowel with slow transit but otherwise no bowel obstruction as most of the contrast passes through the small and large bowel by 8.5 hours. Patient however did not have any bowel movement do suspect the contrast might have been started through her NG tube which is currently hooked to gravity. Plan is to repeat KUB this a.m. Patient was also seen in consultation by Dr. Sifuentes with general surgery his notes and recommendations reviewed including decision not to proceed with any surgical intervention 12/29/2021; Patient seen admits to passing some flatus. Patient was seen by general surgery the day prior. Plan is for patient to undergo a GJ conversion of the patient's current PEG tube once materials are available 12/30/2021; had an extensive discussion with oncology, [place] who had spoken to surgical oncologist Dr. Shelia fierro at [facility] who recommended conservative management at this point. Patient also did express the desire to be discharged home. Case management subsequently consulted to assist with the discharge process once patient GJ conversion has been performed -12/31/2021; Patient underwent GJ tube placement by interventional radiology the day prior. Patient to however fell out. Consult placed to general surgery. Plan for patient to undergo tube replacement and anesthesia in OR. Patient is very tearful and distraught and is very insistent on being discharged home. She however wants to remain full code at this point 2. Severe protein calorie malnutrition ? As evidenced by suboptimal energy intake and severe weight loss this is related to patient underlying metastatic colon cancer. Consult was placed to dietitian. TPN was recommended which has been initiated. Plan is for patient to be discharged home once case management is able to arrange for TPN to be administered at home 3. Stage IV: CA ? Patient currently being managed and followed by oncology 4. Depression with anxiety ? Patient is on escitalopram as well as buspirone 5. Class I obesity with BMI of 33.5 ? Weight loss advised 6. Hypokalemia ? Corrected per protocol 7. Hypomagnesemia -corrected per protocol 8. History of previous DVT/PE ? On Eliquis held for patient's procedure 9. DVT prophylaxis ? Enoxaparin 10. Anemia - Secondary to chronic disorder monitoring H&H and transfuse if patient becomes symptomatic or hemoglobin falls below 7 Charges/Coding Visit Charges Inpatient E&M: 63386 Subs Hosp L2
[2021-12-31 07:59] LABS: Anion Gap 10 (5-15); BUN 40 mg/dL (7-18); BUN/Creat Ratio 97.6 RATIO (10-20); Chloride 100 mmol/L (98-107); Creatinine, Serum 0.41 mg/dL (0.55-1.02); EST Glomerular Filtration Rate 174 mL/min (>60); Est Glom Filt Rate - Afr Amer 210 mL/min (>60); Estimated Creatinine Clearance 140.18 ml/min; Glucose 134 mg/dL (74-106); Potassium 3.7 mmol/L (3.5-5.1); Sodium Level 132 mmol/L (136-145)
[2021-12-31] MEDS: Haloperidol Lactate 5 MG/ML Vial 2 MG IM (08:37)
[2021-12-31] MEDS: morphine (oral solution) 10MG/0.5ML Syringe 10 MG SL ×4 (08:38→18:54)
--- NOTE | 2021-12-31 11:07 | RAD_ITS ---
STUDY: X-RAY CHEST REASON FOR EXAM: Female, 51 years old. CEJA, o2 4L hx of large pleural effusion on L -- pt currently in ENDO please call them to arrange TECHNIQUE: PA and lateral views of the chest. COMPARISON: 12/20/2021 FINDINGS: Right internal jugular chest port which is unchanged. The lungs are clear and expanded. Large left pleural effusion and small right pleural effusion with bibasilar atelectasis. There is moderate cardiac enlargement. Normal mediastinum and parisa. Normal visualized pulmonary arteries. Normal visualized aortic arch and descending thoracic aorta. Normal visualized thoracic spine. Normal visualized ribs, clavicles, and shoulders. There is no demonstrated abnormality of the visualized soft tissue structures of the upper abdomen. RAD/Chest PA and Lateral IMPRESSION: Large left pleural effusion and small right pleural effusion similar to the prior study. Electronically Signed: Elias Weeks MD at 12:45 EDT ,
--- NOTE | 2021-12-31 11:10 | OP.CCLET_ITS ---
[facility] for Mónica eDlaney [facility] This procedure was performed on Friday, December 31, 2021. My impressions and recommendations are as follows: Impressions : - Normal esophagus. - Normal stomach. - Normal duodenal bulb. - An externally removable PEG placement was successfully completed. - No specimens collected. Recommendations : - [facility]. - NPO. - Continue present medications. - Please follow the post-PEG recommendations. My findings are described in the full procedure note, which is enclosed. If I can be of further assistance, please feel free to contact me at Doctor phone number(s): , Work: . Sincerely, MD Willian Holley MD 12/31/2021 11:10:30 AM This report has been signed electronically.
--- NOTE | 2021-12-31 11:10 | OP.EGD_ITS ---
Patient Name: Mónica James Procedure Date: 12/31/2021 9:58 AM Date of : 1970 Age: 51 Procedure: Upper GI endoscopy Indications: Replace PEG tube because existing gastrostomy tube came out Providers: Willian Botello MD Medicines: See the Anesthesia note for documentation of the administered medications Patient Profile: This is a 51 year old female. Refer to note in patient chart for documentation of history and physical. Complications: No immediate complications. Estimated blood loss: Minimal. Procedure: Pre-Anesthesia Assessment: - Prior to the procedure, a History and Physical was performed, and patient medications and allergies were reviewed. The patient's tolerance of previous anesthesia was also reviewed. The risks and benefits of the procedure and the sedation options and risks were discussed with the patient. All questions were answered, and informed consent was obtained. Prior Anticoagulants: The patient has taken no previous anticoagulant or antiplatelet agents. ASA Grade Assessment: III - A patient with severe systemic disease. After reviewing the risks and benefits, the patient was deemed in satisfactory condition to undergo the procedure. After obtaining informed consent, the endoscope was passed under direct vision. Throughout the procedure, the patient's blood pressure, pulse, and oxygen saturations were monitored continuously. The gastroscope was introduced through the mouth, and advanced to the duodenal bulb. The upper GI endoscopy was accomplished without difficulty. The patient tolerated the procedure well. Scope In: 10:15:33 AM Scope Out: 10:21:10 AM Total Procedure Duration Time 0 hours 5 minutes 37 seconds Findings: The examined esophagus was normal. The entire examined stomach was normal. Placement of an externally removable PEG with no T-fasteners was successfully completed. The external bumper was at the 5.5 cm marking on the tube. Estimated blood loss was minimal. The duodenal bulb was normal. Impression: - Normal esophagus. - Normal stomach. - Normal duodenal bulb. - An externally removable PEG placement was successfully completed. - No specimens collected. Recommendation: - [facility] to [facility]. - NPO. - Continue present medications. - Please follow the post-PEG recommendations. Procedure Code(s): --- Professional --- 68185, Esophagogastroduodenoscopy, flexible, transoral; with directed placement of percutaneous gastrostomy tube Diagnosis Code(s): --- Professional --- Z43.1, Encounter for attention to gastrostomy CPT copyright 2017 [employer]. All rights reserved. The codes documented in this report are preliminary and upon entertainment centre manager review may be revised to meet current compliance requirements. MD Willian Holley MD 12/31/2021 11:10:30 AM This report has been signed electronically. Number of Addenda: 0 Note Initiated On: 12/31/2021 9:58 AM
[2021-12-31] MEDS: Scopolamine 1mg/72hr Patch 1 PATCH TD (12:23)
[2021-12-31] MEDS: Pantoprazole Sodium 40 MG Tablet PO (12:23)
[2021-12-31] MEDS: busPIRone 5 MG Tablet 10 MG PO ×2 (12:23→20:49)
[2021-12-31] MEDS: fentaNYL 25 MCG Patch TD (12:23)
[2021-12-31] MEDS: Escitalopram Oxalate 20 MG Tablet PO (12:23)
[2021-12-31] MEDS: Polyethylene Glycol 3350 17 GM PACKET PO ×2 (12:24→20:48)
[2021-12-31] MEDS: Senna Tablet 1 TABLET PO ×2 (12:25→20:49)
[2021-12-31] MEDS: Acetaminophen 325 MG Tablet 650 MG PO (12:25)
[2021-12-31 12:46] LABS: Bedside Glucose 128 mg/dL (74-106)
[2021-12-31] MEDS: Furosemide 100 MG/10 ML Vial 80 MG IV (13:29)
[2021-12-31] MEDS: TPN - Clinimix E 8%-14% Soln 2,000 ML with Multivitamins 10 ML, Trace Elements 1 ML, Fo... 84 ML IV (15:50)
[2021-12-31 16:45] LABS: Bedside Glucose 111 mg/dL (74-106)
[2021-12-31] MEDS: Ondansetron 4 MG/2 ML Vial IV (16:46)
--- NOTE | 2021-12-31 21:44 | NURSING ---
Pt asked for pain medication. Roxanol taken in room, pt refused medication stating that oral stuff does not work, I want the IV. Medication returned to med room and wasted with Bronwyn Saldana RN.
[2022-01-01] MEDS: LORazepam 2 MG/ML Syringe 0.5 MG IV ×6 (01:29→23:05)
[2022-01-01 03:46] VITALS: BP 138/76; PULSE 116; RESP 18; TEMP 36.6; O2SAT 98
[2022-01-01] MEDS: Morphine 2 MG/ML Syringe IV ×6 (03:47→23:05)
[2022-01-01] MEDS: proCHLORPERazine 10 MG/2 ML Vial 5 MG IV ×5 (03:47→23:05)
[2022-01-01] MEDS: Enoxaparin 40 MG/0.4 ML Syringe SC (05:13)
[2022-01-01] MEDS: 0.9% Saline Lock 10 ML Syringe IV ×6 (06:39→23:06)
--- NOTE | 2022-01-01 07:32 | PN.HOSP_ITS ---
Subjective Subjective Patient underwent placement of an externally removable PEG by Dr. Botello on 12/31/2021 after an original PEG tube became dislodged. Consult has been placed to interventional radiology for placement of the GJ tube. Patient also did develop respiratory distress imaging studies obtained the day prior demonstrated large left sided pleural effusion. Patient started on Lasix consult placed to interventional radiology once again for ultrasound-guided thoracocentesis in a.m. Objective Data Objective Data Vital Signs: Vital Signs Temp Pulse Resp BP Pulse Ox 97.8 F 116 H 18 138/76 H 98 01/01/22 03:46 01/01/22 03:46 01/01/22 03:46 01/01/22 03:46 01/01/22 03:46 Oxygen Flow Rate (L/min) [1103 3 ] Oxygen Flow Rate (L/min) [1058 3 ] Oxygen Flow Rate (L/min) [1053 3 ] Oxygen Flow Rate (L/min) [1048 3 ] Oxygen Flow Rate (L/min) [1043 3 ] Oxygen Flow Rate (L/min) [1038 3 ] Oxygen Flow Rate (L/min) [1033 3 ] Oxygen Flow Rate (L/min) [1028 3 ] Oxygen Flow Rate (L/min) [1023 3 ] Oxygen Flow Rate (L/min) [1013 3 ] Oxygen Flow Rate (L/min) [1008 3 ] Oxygen Flow Rate (L/min) [10] 3 Oxygen Flow Rate (L/min) [9] 3 Oxygen Flow Rate (L/min) [7] 3 Oxygen Flow Rate (L/min) [6] 3 Oxygen Flow Rate (L/min) [5] 3 Oxygen Flow Rate (L/min) [4] 3 Oxygen Flow Rate (L/min) [3] 3 Oxygen Flow Rate (L/min) [2] 3 Oxygen Flow Rate (L/min) [1 ( 2 Initial Baseline)] Oxygen Flow Rate (L/min) 4 Oxygen Delivery Method [1103] Nasal Cannula Oxygen Delivery Method [1058] Nasal Cannula Oxygen Delivery Method [1053] Nasal Cannula Oxygen Delivery Method [1048] Nasal Cannula Oxygen Delivery Method [1043] Nasal Cannula Oxygen Delivery Method [1038] Nasal Cannula Oxygen Delivery Method [1033] Nasal Cannula Oxygen Delivery Method [1028] Nasal Cannula Oxygen Delivery Method [1023] Nasal Cannula Oxygen Delivery Method [13] Nasal Cannula Oxygen Delivery Method [1013] Nasal Cannula Oxygen Delivery Method [1008] Nasal Cannula Oxygen Delivery Method [10] Nasal Cannula Oxygen Delivery Method [9] Nasal Cannula Oxygen Delivery Method [8] Nasal Cannula Oxygen Delivery Method [7] Nasal Cannula Oxygen Delivery Method [6] Nasal Cannula Oxygen Delivery Method [5] Nasal Cannula Oxygen Delivery Method [4] Nasal Cannula Oxygen Delivery Method [3] Nasal Cannula Oxygen Delivery Method [2] Nasal Cannula Oxygen Delivery Method [1 ( Nasal Cannula Initial Baseline)] Oxygen Delivery Method Nasal Cannula Weight: 87.09 kg Body Mass Index (BMI) 33.3 Intake & Output: Intake and Output for Last 24 Hours 12/30/21 12/31/21 01/01/22 23:59 23:59 23:59 Intake Total 3221.2 / 3321.2 2973.7 / 2973.7 50 / 50 Output Total 2300 / 2950 2900 / 2900 250 / 250 Balance 921.2 / 371.2 73.7 / 73.7 -200 / -200 Medical Nutrition Assessment Dietitian: Malnutrition Criteria Met Start: 12/21/21 15:59 Freq: Status: Active Protocol: Document 12/31/21 10:46 AG (Rec: 12/31/21 10:46 AG [id number]) Nutrition Malnutrition Evidence of Malnutrition Exists Yes Malnutrition (severe): Acute Illness/Injury Evidenced By Suboptimal Energy Intake ( Severe),Weight Loss (Severe) Intake Problem Inadequate Oral Intake Etiology related to altered GI function /bowel obstruction Signs/Symptoms as evidenced estimated PO intake meeting <75% of estimated energy needs >1 week Status Resolved Problem Clinical Problem Acute Disease or Injury Related Malnutrition Etiology Severe protein-calorie malnutrition in the context of acute illness related to altered GI function and inadequate oral intake Signs/Symptoms as evidenced by wt loss ~10-12 % x 3 months, poor oral intake meeting less than 50% estimated nutrition needs x past 2-3 weeks Status Active Problem Recommendation Dietitian Recommendations/Changes 1.) TPN day #9: 2L Clinimix 8% AA/14% dextrose solution w/ electrolytes, MVI, trace minerals, and folic acid at 84ml/hr to provide 1593 calories and 160 g protein per day. 2.) Continue daily weights. 3.) Continue monitoring of labs/electrolytes. Lab / Micro Data Result Diagrams: 01/01/22 08:50 01/01/22 08:50 Labs: Laboratory Results - last 24 hr 12/31/21 06:39: WBC 9.8, RBC 3.31 L, Hgb 9.6 L, Hct 29.5 L, MCV 89.1, MCH 29.0, MCHC 32.5, RDW Std Deviation 53.6 H, RDW Coeff of Mohsen 16.6 H, Plt Count 296, MPV 10.9 12/31/21 06:39: Sodium 132 L, Potassium 3.7, Chloride 100, Carbon Dioxide 22.0, Anion Gap 10, BUN 40 H, Creatinine 0.41 L, Estim Creat Clear Calc 140.18, Est GFR (MDRD) Af Amer 210, Est GFR (MDRD) Non-Af 174, BUN/Creatinine Ratio 97.6 H, Glucose 134 H, Calcium 9.0 12/31/21 12:36: POC Glucose 128 H 12/31/21 16:39: POC Glucose 111 H Micro: Microbiology 12/20/21 09:40 Blood Culture (Wb) - Port Blood Culture - Final No growth in 5 days. 12/20/21 09:31 Blood Culture (Wb) - Anticubital Left Blood Culture - Final No growth in 5 days. 12/20/21 12:05 Urine, Clean Catch Urine Culture - Final Mixed Gram Positive Organisms Radiography Diagnostic Testing: Radiology Impression Chest X-Ray 12/31/21 11:07 IMPRESSION: Large left pleural effusion and small right pleural effusion similar to the prior study. Electronically Signed: Elias Weeks MD at 12:45 EDT , Physical Exam Narrative GENERAL: Tearful HEENT: Atraumatic; EYES; Anicteric, Normal Conjunctiva NECK; supple, normal thyroid, RESPIRATORY: Diminished to auscultation CARDIOVASCULAR: Regular S1 S2, GI: soft, normoactive bowel sounds,, PEG tube in place : No Renal angle tenderness; EXTREMITIES: No edema, no clubbing, MUSCULOSKELETAL: no muscle wasting NEURO: Awake; no lateralizing signs. SKIN: No Rash PSYCH; Flat affect Assessment & Plan Assessment/Plan (1) Colon cancer: QUALIFIERS: Colon location: ascending Qualified Code(s): C18.2 - Malignant neoplasm of ascending colon (2) Malignant pleural effusion: PLAN: Patient is a 51-year-old lady with history of metastatic colon cancer who presented with abdominal pain constipation nausea and vomiting. CT of the abdomen and pelvis obtained on admission demonstrated progressive thickening of the ascending colon with findings suggestive of omental metastasis, left pleural effusion with left basilar infiltration/atelectasis and mild right basilar atelectasis. Admitted to regular nursing floor for further management 1. Abdominal pain ? CT on admission did show progressive thickening of the ascending colon with findings suggestive of omental metastasis. Consult was placed to GI patient was seen by Dr. Morfin who did perform EGD demonstrating esophagitis and duodenitis and excess gastric fluid. Patient had a removable PEG tube placed. 11/26/2021 Patient seen still has significant drainage by gravity from her PEG tube. CT of the abdomen ordered 12/26/2021 demonstrated multiple areas of bowel wall thickening with no evidence of obstruction no bowel dilatation. Case was discussed with Dr Schwarz with oncology decision was made to consult general surgery Case discussed with Dr. Sifuentes 12/28/2021; Patient underwent small bowel series on 12/27/2021 findings as below Distended proximal small bowel with slow transit but otherwise no bowel obstruction as most of the contrast passes through the small and large bowel by 8.5 hours. Patient however did not have any bowel movement do suspect the contrast might have been started through her NG tube which is currently hooked to gravity. Plan is to repeat KUB this a.m. Patient was also seen in consultation by Dr. Sifuentes with general surgery his notes and recommendations reviewed including decision not to proceed with any surgical intervention 12/29/2021; Patient seen admits to passing some flatus. Patient was seen by general surgery the day prior. Plan is for patient to undergo a GJ conversion of the patient's current PEG tube once materials are available 12/30/2021; had an extensive discussion with oncology, Oumou who had spoken to surgical oncologist Dr. Shelia fierro at [facility] who recommended conservative management at this point. Patient also did express the desire to be discharged home. Case management subsequently consulted to assist with the discharge process once patient GJ conversion has been performed -12/31/2021; Patient underwent GJ tube placement by interventional radiology the day prior. Patient to however fell out. Consult placed to general surgery. Plan for patient to undergo tube replacement and anesthesia in OR. Patient is very tearful and distraught and is very insistent on being discharged home. She however wants to remain full code at this point ?01/01/2022; Patient underwent placement of an externally removable PEG by Dr. Botello on 12/31/2021 after an original PEG tube became dislodged. Consult has been placed to interventional radiology for placement of the GJ tube. 2. Large left-sided pleural effusion ?01/01/2022 suspected to be secondary to malignant pleural effusion. Patient also did develop respiratory distress imaging studies obtained the day prior demonstrated large left sided pleural effusion. Patient started on Lasix consult placed to interventional radiology once again for ultrasound-guided thoracocentesis in a.m. 3. Severe protein calorie malnutrition ? As evidenced by suboptimal energy intake and severe weight loss this is related to patient underlying metastatic colon cancer. Consult was placed to dietitian. TPN was recommended which has been initiated. Plan is for patient to be discharged home once case management is able to arrange for TPN to be administered at home 4. Stage IV: CA ? Patient currently being managed and followed by oncology ?01/01/2022. Had an extensive discussion with the patient regarding her prognosis. Patient still wants to remain full code 5. Class I obesity with BMI of 33.5 ? Weight loss advised 6. Hypokalemia ? Corrected per protocol 7. Hypomagnesemia -corrected per protocol 8. History of previous DVT/PE ? On Eliquis held for patient's multiple procedures 9. 4. Depression with anxiety ? Patient is on escitalopram as well as buspirone 11. Anemia - Secondary to chronic disorder monitoring H&H and transfuse if patient becomes symptomatic or hemoglobin falls below 7 12. DVT prophylaxis ? On enoxaparin with plans to hold a.m. dose for patient procedure Charges/Coding Visit Charges Inpatient E&M: 61255 Subs Hosp L3
[2022-01-01 07:36] VITALS: BP 141/83; PULSE 135; RESP 22; TEMP 36.6; O2SAT 96
--- NOTE | 2022-01-01 07:54 | EKG12_ITS ---
Test Reason : TACHY Blood Pressure : / mmHG Vent. Rate : 129 BPM Atrial Rate : 129 BPM P-R Int : 126 ms QRS Dur : 082 ms QT Int : 298 ms P-R-T Axes : 038 036 049 degrees QTc Int : 436 ms Sinus tachycardia Otherwise normal ECG Confirmed by MARKO TRENT, COLT ([id number]), communications editor JONNY LAN ([id number]) on 01/04/2022 10:04:27 AM Referred By: EUGENIA Confirmed By:COLT ZHU MD
[2022-01-01 08:16] VITALS: O2SAT 95
--- NOTE | 2022-01-01 08:59 | PCM.PN.SRG ---
Subjective Subjective PEG tube remains in place now draining appropriately. Objective Data Objective Data Abdomen is soft. Vital Signs: Vital Signs Temp Pulse Resp BP Pulse Ox 97.9 F 135 H 22 H 141/83 H 95 01/01/22 07:36 01/01/22 07:36 01/01/22 07:36 01/01/22 07:36 01/01/22 08:16 Oxygen Flow Rate (L/min) [1103 3 ] Oxygen Flow Rate (L/min) [1058 3 ] Oxygen Flow Rate (L/min) [1053 3 ] Oxygen Flow Rate (L/min) [1048 3 ] Oxygen Flow Rate (L/min) [1043 3 ] Oxygen Flow Rate (L/min) [1038 3 ] Oxygen Flow Rate (L/min) [1033 3 ] Oxygen Flow Rate (L/min) [1028 3 ] Oxygen Flow Rate (L/min) [1023 3 ] Oxygen Flow Rate (L/min) [1013 3 ] Oxygen Flow Rate (L/min) [1008 3 ] Oxygen Flow Rate (L/min) [10] 3 Oxygen Flow Rate (L/min) [9] 3 Oxygen Flow Rate (L/min) [7] 3 Oxygen Flow Rate (L/min) [6] 3 Oxygen Flow Rate (L/min) [5] 3 Oxygen Flow Rate (L/min) [4] 3 Oxygen Flow Rate (L/min) [3] 3 Oxygen Flow Rate (L/min) [2] 3 Oxygen Flow Rate (L/min) [1 ( 2 Initial Baseline)] Oxygen Flow Rate (L/min) 4 Oxygen Delivery Method [1103] Nasal Cannula Oxygen Delivery Method [1058] Nasal Cannula Oxygen Delivery Method [1053] Nasal Cannula Oxygen Delivery Method [1048] Nasal Cannula Oxygen Delivery Method [1043] Nasal Cannula Oxygen Delivery Method [1038] Nasal Cannula Oxygen Delivery Method [1033] Nasal Cannula Oxygen Delivery Method [1028] Nasal Cannula Oxygen Delivery Method [1023] Nasal Cannula Oxygen Delivery Method [13] Nasal Cannula Oxygen Delivery Method [1013] Nasal Cannula Oxygen Delivery Method [1008] Nasal Cannula Oxygen Delivery Method [10] Nasal Cannula Oxygen Delivery Method [9] Nasal Cannula Oxygen Delivery Method [8] Nasal Cannula Oxygen Delivery Method [7] Nasal Cannula Oxygen Delivery Method [6] Nasal Cannula Oxygen Delivery Method [5] Nasal Cannula Oxygen Delivery Method [4] Nasal Cannula Oxygen Delivery Method [3] Nasal Cannula Oxygen Delivery Method [2] Nasal Cannula Oxygen Delivery Method [1 ( Nasal Cannula Initial Baseline)] Oxygen Delivery Method Nasal Cannula Weight: 192 lb Body Mass Index (BMI) 33.3 Intake & Output: Intake and Output for Last 24 Hours 12/30/21 12/31/21 01/01/22 23:59 23:59 23:59 Intake Total 3221.2 / 3321.2 2973.7 / 2973.7 50 / 50 Output Total 2300 / 2950 2900 / 2900 300 / 300 Balance 921.2 / 371.2 73.7 / 73.7 -250 / -250 Medical Nutrition Assessment Dietitian: Malnutrition Criteria Met Start: 12/21/21 15:59 Freq: Status: Active Protocol: Document 12/31/21 10:46 AG (Rec: 12/31/21 10:46 AG [id number]) Nutrition Malnutrition Evidence of Malnutrition Exists Yes Malnutrition (severe): Acute Illness/Injury Evidenced By Suboptimal Energy Intake ( Severe),Weight Loss (Severe) Intake Problem Inadequate Oral Intake Etiology related to altered GI function /bowel obstruction Signs/Symptoms as evidenced estimated PO intake meeting <75% of estimated energy needs >1 week Status Resolved Problem Clinical Problem Acute Disease or Injury Related Malnutrition Etiology Severe protein-calorie malnutrition in the context of acute illness related to altered GI function and inadequate oral intake Signs/Symptoms as evidenced by wt loss ~10-12 % x 3 months, poor oral intake meeting less than 50% estimated nutrition needs x past 2-3 weeks Status Active Problem Recommendation Dietitian Recommendations/Changes 1.) TPN day #9: 2L Clinimix 8% AA/14% dextrose solution w/ electrolytes, MVI, trace minerals, and folic acid at 84ml/hr to provide 1593 calories and 160 g protein per day. 2.) Continue daily weights. 3.) Continue monitoring of labs/electrolytes. Lab / Micro Data Result Diagrams: 12/31/21 06:39 12/31/21 06:39 Labs: Laboratory Results - last 24 hr 12/31/21 12:36: POC Glucose 128 H 12/31/21 16:39: POC Glucose 111 H Micro: Microbiology 12/20/21 09:40 Blood Culture (Wb) - Port Blood Culture - Final No growth in 5 days. 12/20/21 09:31 Blood Culture (Wb) - Anticubital Left Blood Culture - Final No growth in 5 days. 12/20/21 12:05 Urine, Clean Catch Urine Culture - Final Mixed Gram Positive Organisms Radiography Diagnostic Testing: Radiology Impression Chest X-Ray 12/31/21 11:07 IMPRESSION: Large left pleural effusion and small right pleural effusion similar to the prior study. Electronically Signed: Elias Weeks MD at 12:45 EDT , Assessment & Plan Assessment/Plan (1) Gastrostomy complication: PLAN: Would remain on antibiotics today. Okay to shower around the tube using soap and water and peroxide. Would recommend patient have a Mccallum tube placed if they need to get feeds into the small intestine.
[2022-01-01 09:05] VITALS: BP 132/93; PULSE 125; RESP 20; TEMP 36.6; O2SAT 98
[2022-01-01] MEDS: Senna Tablet 1 TABLET PO ×2 (09:05→21:18)
[2022-01-01] MEDS: Escitalopram Oxalate 20 MG Tablet PO (09:06)
[2022-01-01] MEDS: Acetaminophen 325 MG Tablet 650 MG PO (09:06)
[2022-01-01] MEDS: Furosemide 100 MG/10 ML Vial 80 MG IV (09:06)
[2022-01-01] MEDS: Pantoprazole Sodium 40 MG Tablet PO (09:06)
[2022-01-01] MEDS: Polyethylene Glycol 3350 17 GM PACKET PO ×2 (09:06→23:13)
[2022-01-01] MEDS: morphine (oral solution) 10MG/0.5ML Syringe 10 MG SL ×2 (09:07→13:20)
[2022-01-01 09:16] LABS: Absolute Lymphocyte Count 0.71 X10^3/uL (0.83-4.51); Basophil# 0.05 X10^3/uL; Basophil% 0.4 % (0-1); Eosinophil# 0.14 X10^3/uL; Eosinophils% 1.2 % (0-5); Hematocrit 31.3 % (37-47); Hemoglobin 10.1 g/dL (12.0-15.0); Lymphocyte # 0.71 X10^3/ul (0.83-4.51); Mean Corp Hgb Conc 32.3 g/dL (32-36); Mean Corpuscular Hgb 28.9 pg (27.0-32.0); Mean Corpuscular Volume 89.7 fL (81-99); Monocyte# 1.66 X10^3/uL; Monocyte% 14.1 % (0-10); NRBC Flagged by Analyzer 0 % (0-5); Neutrophil # 8.95 X10^3/uL (2.7-7.7); Neutrophil % 75.8 % (47-70); POSITIVE DIFFERENTIAL YES; Platelet Count 349 K/mm3 (150-450); RBC Distribution Width CV 16.8 % (11.6-14.6); RBC Distribution Width SD 54.1 fl (35.1-43.9); Red Blood Count 3.49 M/mm3 (4.2-5.4); White Blood Count 11.8 K/mm3 (4.4-11.0)
[2022-01-01 09:21] LABS: Differential Indicated SCAN CRITERIA MET
[2022-01-01 09:25] LABS: ALB/GLOB Ratio 0.3 RATIO (0.9-2.4); AST(SGOT) 42 U/L (15-37); Alanine Aminotransfer ALT/SGPT 58 U/L (13-56); Albumin, Serum 1.8 g/dL (3.2-5.0); Alkaline Phosphatase 438 U/L (45-117); Anion Gap 9 (5-15); BUN 49 mg/dL (7-18); BUN/Creat Ratio 66.3 RATIO (10-20); Calcium,Total 9.1 mg/dL (8.5-10.1); Chloride 102 mmol/L (98-107); Creatinine, Serum 0.74 mg/dL (0.55-1.02); EST Glomerular Filtration Rate 88 mL/min (>60); Est Glom Filt Rate - Afr Amer 106 mL/min (>60); Estimated Creatinine Clearance 77.67 ml/min; Globulin 5.5 g/dL (2.2-4.2); Glucose 132 mg/dL (74-106); Magnesium 1.8 mg/dL (1.6-2.6); Potassium 4.1 mmol/L (3.5-5.1); Protein, Total 7.3 g/dL (6.4-8.2); Sodium Level 132 mmol/L (136-145)
[2022-01-01] MEDS: busPIRone 5 MG Tablet 10 MG PO ×2 (09:29→21:18)
[2022-01-01 10:24] LABS: Anisocytosis 1+; Polychromasia 1+
[2022-01-01 12:41] LABS: Bedside Glucose 147 mg/dL (74-106)
[2022-01-01 14:45] VITALS: BP 126/78; PULSE 110; RESP 18; TEMP 36.6; O2SAT 98
[2022-01-01] MEDS: Furosemide 100 MG/10 ML Vial 60 MG IV ×2 (14:48→21:18)
[2022-01-01] MEDS: TPN - Clinimix E 8%-14% Soln 2,000 ML with Multivitamins 10 ML, Trace Elements 1 ML, Fo... 84 ML IV (16:04)
--- NOTE | 2022-01-01 16:29 | NURSING ---
while in room, pt replies to nurse i hope he doesn't cause any trouble while he is here. said nurse asked pt if she meant the male visitor she is expecting, pt states no, i mean that man over there. and points to corner of the room. informed pt no other people visible in room other than her and said nurse pt responds, oh, never mind it must have been from the other day. denies any current visual/auditory hallucinations or fearful images when asked.
[2022-01-01 16:50] LABS: Bedside Glucose 127 mg/dL (74-106)
[2022-01-01 20:40] VITALS: BP 127/83; PULSE 127; RESP 18; TEMP 37.1; O2SAT 99
[2022-01-01] MEDS: MELATONIN 3 MG TABLET PO (21:18)
[2022-01-01 23:26] LABS: Bedside Glucose 158 mg/dL (74-106)
--- NOTE | 2022-01-02 | FLU_PTH ---
PATIENT: YENY CERON LOC: MS3 U#:[id number] AGE/SX: 51/F ROOM: AK319 RE12/21/[address]: Dr. Josselin Monet MD : 1970 BED: 1 DIS: 01/02/2022 SPEC #: [id number] RECD: 01/02/22 09:41 STATUS: SOUAlber REQ #: [id number] RISHABH: 01/02/22 00:[address]: Josselin Monet DEPT: CYTOLOGY RECD BY: Emily Walsh ENTERED: 01/02/22 10:37 SP TYPE: Fluid OTHR DR: MD Dr. Trung Giles MD Dr. Michael Bortz, MD Dr. Mansour Isckarus, MD Dr. Nicholas F Kotsonis, MD Dr. Robert Field, MD Dr. Ryan Jin, MD Dr. Roger Macklis, MD Dr. Steve Walston, DO Suzi Coello, [facility] Tissues: THORACIC FLUID Procedures: Special Stain Group II Mucicarmine Stain (control) Surgery Specimen Level IV Cytospin Fluid HEADER OPERATION: Ultrasound-guided thoracentesis PRE-OP DIAGNOSIS: Left pleural effusion TISSUE SUBMITTED: Thoracentesis fluid for cytology DIAGNOSIS CYTOLOGY Thoracentesis fluid for cytology (cytospin and cell block): Malignant cells present derived from metastatic adenocarcinoma, consistent with colonic primary. See comment. AVA:twan 01/03/2022 COMMENT Mucin stain with matched control is used in the evaluation of the specimen. Immunohistochemistry ([id number]) supports the above diagnosis. Please make reference to previous specimen ([id number]) Thoracentesis fluid for cytology with diagnosis of positive for malignant cells consistent with metastatic adenocarcinoma and ([id number]) thoracentesis fluid for cytology with diagnosis of malignant cells present derived from metastatic non-small cell carcinoma and A85- 6108, Colonic polyp at hepatic flexure, Ascending colon, biopsy and cecum biopsy with diagnosis of poorly differentiated adenocarcinoma. CYTOLOGY STUDY Slides are reviewed. CYTOLOGY GROSS Received is 90 ml of red cloudy fluid labeled with the patient's name and and designated per the requisition as thoracentesis. Submitted for cytology preparation including cell block. / twan 01/02/2022 TC:0 CPT: 34113, 84817, 99039
--- NOTE | 2022-01-02 | IMM_PTH ---
PATIENT: YENY CERON LOC: MS3 U#:[id number] AGE/SX: 51/F ROOM: MO319 RE12/21/[address]: Dr. Josselin Monte MD : 1970 BED: 1 DIS: 01/02/2022 SPEC #: [id number] RECD: 01/03/22 13:26 STATUS: SOUAlber REQ #: [id number] RISHABH: 01/02/22 00:[address]: Josselin Monet DEPT: IMMUNOHISTOCHEMISTRY RECD BY: Scarlet Steiner ENTERED: 01/03/22 13:28 SP TYPE: IMMUNO OTHR DR: MD Dr. Trung Giles MD Dr. Michael Bortz, MD Dr. Mansour Isckarus, MD Dr. Nicholas F Kotsonis, MD Dr. Robert Field, MD Dr. Ryan Jin, MD Dr. Roger Macklis, MD Dr. Steve Walston, DO Suzi Coello, [facility] Tissues: THORACIC FLUID Procedures: RCC (add) Wilmer Ret (add) CK20 (add) CK5-6 (add) CK7 (add) CK8 (add) LANZA-2 (add) HEP PAR (add) KI-67 (add) MACRO (add) P53 (add) VT (add) TTF1 (add) Vimentin (add) Pankeratin (add) P40 (add) CDX2 (add) ER (initial) PHYSICIAN & INSTITUTION [facility] [address] [place] [id number] SPECIMEN INFORMATION: Tissue Source: Thoracentesis fluid Clinical Info: Left pleural effusion Specimen Number: [id number] CPT code: 63090, 97639 x17 METHODOLOGY: Deparaffinized sections of prefer/formalin-fixed tissue or PAP/DQ stained slides are incubated with monoclonal/polyclonal antibodies/oligonucleotide probes. Localization is made via biotin free immunoperoxidase method. Appropriate controls are performed and reacted as expected. Results on target cell population are indicated in the following table: RESULTS: ANTIBODY / CLONE RESULT ER (6F11) negative VT (1E2) negative AE1-3 (AE1/AE3/PCK26) positive CK7 (OV-TL12/30) negative CK8 (82rtkaM35) positive CK20 (KS20.8) positive LANZA-2 (SP21) positive, weak CDX2 (QNE2136I) negative Vimentin (V9) negative Macro (HAM-56) negative TTF-1 (8G7G3/1) negative HepPar (OCh1E5) negative RCC (PN-15) negative CALRET (polyclonal) negative CK5-6 (D5 & 1684) negative P40 (BC28) negative P53 (DO-7) negative Ki-67 (30-9) positive, high These tests were developed and their performance characteristics determined by [facility]. They may not have been cleared or approved by the U.S. Food and Drug Administration. The FDA has determined that such clearance or approval is not necessary. The above immunohistochemical/dualISH markers are ordered and reviewed by the Pathologist. INTERPRETATION: Thoracentesis fluid (cell block): Malignant cells present, consistent with metastatic adenocarcinoma, consistent with colonic primary. See comment. AVA:twan 01/04/2022 Comment: Clinical correlation necessary.
[2022-01-02] MEDS: Morphine 2 MG/ML Syringe IV ×2 (02:43→08:02)
[2022-01-02] MEDS: 0.9% Saline Lock 10 ML Syringe IV ×2 (02:47→16:40)
[2022-01-02 02:50] VITALS: BP 126/70; PULSE 120; RESP 18; TEMP 36.5; O2SAT 100
[2022-01-02] MEDS: LORazepam 2 MG/ML Syringe 0.5 MG IV (05:29)
[2022-01-02] MEDS: Furosemide 100 MG/10 ML Vial 60 MG IV ×2 (05:29→14:43)
[2022-01-02] MEDS: proCHLORPERazine 10 MG/2 ML Vial 5 MG IV (05:29)
[2022-01-02 06:27] LABS: Hematocrit 30.3 % (37-47); Hemoglobin 9.8 g/dL (12.0-15.0); Mean Corp Hgb Conc 32.3 g/dL (32-36); Mean Corpuscular Volume 89.6 fL (81-99); Platelet Count 317 K/mm3 (150-450); RBC Distribution Width CV 16.8 % (11.6-14.6); RBC Distribution Width SD 54.5 fl (35.1-43.9); Red Blood Count 3.38 M/mm3 (4.2-5.4); White Blood Count 9.6 K/mm3 (4.4-11.0)
[2022-01-02 06:36] LABS: Bedside Glucose 142 mg/dL (74-106)
[2022-01-02 06:41] LABS: International Normalized Ratio 1.2; Prothrombin Time (Protime)PT. 14.8 SECONDS (11.7-14.9)
[2022-01-02 06:42] LABS: Partial Thromboplast Time 25.1 Seconds (24.1-36.2)
[2022-01-02 06:47] LABS: Anion Gap 10 (5-15); BUN 58 mg/dL (7-18); Calcium,Total 8.8 mg/dL (8.5-10.1); Chloride 100 mmol/L (98-107); Creatinine, Serum 0.71 mg/dL (0.55-1.02); EST Glomerular Filtration Rate 93 mL/min (>60); Est Glom Filt Rate - Afr Amer 112 mL/min (>60); Estimated Creatinine Clearance 80.95 ml/min; Glucose 120 mg/dL (74-106); Potassium 3.2 mmol/L (3.5-5.1); Sodium Level 133 mmol/L (136-145)
--- NOTE | 2022-01-02 07:00 | US_ITS ---
PROCEDURE: ULTRASOUND GUIDED THORACENTESIS. DATE: 12/09/2021. INDICATION: Female, 51 years old. Left pleural effusion. PHYSICIAN: Jose Manuel Nelson DO PROCEDURE: The risks, benefits, and alternatives to the procedure were explained to the patient. The specific risks of bleeding, infection, and pneumothorax requiring chest tube insertion were discussed and accepted. Written informed consent was obtained. Ultrasonographic evaluation of the left lower pleural space was carried out. An adequate pocket was identified. The patient was placed in the sitting, upright position. The overlying skin was prepped and draped in sterile fashion. Approximately 15 mL of 1% lidocaine was administered subcutaneously for local anesthesia. Under ultrasound guidance, a 5 Lithuanian thoracentesis needle/catheter system was advanced into the left posterior lower pleural fluid collection. Approximately 705 mL of clear red fluid was drained in total. The catheter was removed, and a sterile dressing was applied. Approximately 100 mL of sample was sent for labs. The patient tolerated the procedure well. A chest x-ray was ordered. US/Thoracentesis W US IMPRESSION: Ultrasound-guided diagnostic and therapeutic left thoracentesis. Electronically Signed: Jose Manuel Nelson, at 10:06 EDT ,
[2022-01-02 07:45] VITALS: BP 113/84; PULSE 122; RESP 18; TEMP 36.2; O2SAT 94
[2022-01-02 08:35] VITALS: BP 106/62; BP 107/69; BP 110/63; BP 123/78; PULSE 115; PULSE 118; PULSE 123; PULSE 125; RESP 18; RESP 20; TEMP 36.3; O2SAT 96; O2SAT 97
[2022-01-02] MEDS: Lidocaine 2% (20 ml mdv) 20 ML Vial INFILT (08:40)
--- NOTE | 2022-01-02 08:47 | PN.SURG_ITS ---
Subjective Subjective Patient seen and examined during AM rounds. She is found sitting upright and out of bed in a chair. She reports feeling better today after she required replacement of a PEG tube this weekend when her PEJ tube fell out. She confirms that she did have a bowel movement following her suppository on 12/30/2021. Objective Data Objective Data Vital Signs: Vital Signs Temp Pulse Resp BP Pulse Ox 97.7 F L 120 H 18 126/70 H 100 01/02/22 02:50 01/02/22 02:50 01/02/22 02:50 01/02/22 02:50 01/02/22 02:50 Oxygen Flow Rate (L/min) [1103 3 ] Oxygen Flow Rate (L/min) [1058 3 ] Oxygen Flow Rate (L/min) [1053 3 ] Oxygen Flow Rate (L/min) [1048 3 ] Oxygen Flow Rate (L/min) [1043 3 ] Oxygen Flow Rate (L/min) [1038 3 ] Oxygen Flow Rate (L/min) [1033 3 ] Oxygen Flow Rate (L/min) [1028 3 ] Oxygen Flow Rate (L/min) [1023 3 ] Oxygen Flow Rate (L/min) [1013 3 ] Oxygen Flow Rate (L/min) [1008 3 ] Oxygen Flow Rate (L/min) [10] 3 Oxygen Flow Rate (L/min) [9] 3 Oxygen Flow Rate (L/min) [7] 3 Oxygen Flow Rate (L/min) [6] 3 Oxygen Flow Rate (L/min) [5] 3 Oxygen Flow Rate (L/min) [4] 3 Oxygen Flow Rate (L/min) [3] 3 Oxygen Flow Rate (L/min) [2] 3 Oxygen Flow Rate (L/min) [1 ( 2 Initial Baseline)] Oxygen Flow Rate (L/min) 4 Oxygen Delivery Method [1103] Nasal Cannula Oxygen Delivery Method [1058] Nasal Cannula Oxygen Delivery Method [1053] Nasal Cannula Oxygen Delivery Method [1048] Nasal Cannula Oxygen Delivery Method [1043] Nasal Cannula Oxygen Delivery Method [1038] Nasal Cannula Oxygen Delivery Method [1033] Nasal Cannula Oxygen Delivery Method [1028] Nasal Cannula Oxygen Delivery Method [1023] Nasal Cannula Oxygen Delivery Method [13] Nasal Cannula Oxygen Delivery Method [1013] Nasal Cannula Oxygen Delivery Method [1008] Nasal Cannula Oxygen Delivery Method [10] Nasal Cannula Oxygen Delivery Method [9] Nasal Cannula Oxygen Delivery Method [8] Nasal Cannula Oxygen Delivery Method [7] Nasal Cannula Oxygen Delivery Method [6] Nasal Cannula Oxygen Delivery Method [5] Nasal Cannula Oxygen Delivery Method [4] Nasal Cannula Oxygen Delivery Method [3] Nasal Cannula Oxygen Delivery Method [2] Nasal Cannula Oxygen Delivery Method [1 ( Nasal Cannula Initial Baseline)] Oxygen Delivery Method Nasal Cannula Weight: 192 lb 14.472 oz Body Mass Index (BMI) 33.3 Intake & Output: Intake and Output for Last 24 Hours 12/31/21 01/01/22 01/02/22 23:59 23:59 23:59 Intake Total 2973.7 / 2973.7 2615.95 / 2615.95 112.75 / 112.75 Output Total 2900 / 2900 3450 / 3450 650 / 650 Balance 73.7 / 73.7 -834.05 / -834.05 -537.25 / -537.25 Medical Nutrition Assessment Dietitian: Malnutrition Criteria Met Start: 12/21/21 15 :59 Freq: Status: Active Protocol: Document 01/01/22 10:43 JOHN (Rec: 01/01/22 10:43 SLA [id number]) Nutrition Malnutrition Evidence of Malnutrition Exists Yes Malnutrition (severe): Acute Illness/Injury Evidenced By Suboptimal Energy Intake ( Severe),Weight Loss (Severe) Intake Problem Inadequate Oral Intake Etiology related to altered GI function /bowel obstruction Signs/Symptoms as evidenced estimated PO intake meeting <75% of estimated energy needs >1 week Status Active Problem Clinical Problem Acute Disease or Injury Related Malnutrition Etiology Severe protein-calorie malnutrition in the context of acute illness related to altered GI function and inadequate oral intake Signs/Symptoms as evidenced by wt loss ~10-12 % x 3 months, poor oral intake meeting less than 50% estimated nutrition needs x past 2-3 weeks Status Active Problem Recommendation Dietitian Recommendations/Changes 1.) TPN day #10: 2L Clinimix 8 % AA/14% dextrose solution w/ electrolytes, MVI, trace minerals, and folic acid at 84ml/hr to provide 1593 calories and 160 g protein per day. 2.) Continue daily weights. 3.) Continue monitoring of labs/electrolytes. Lab / Micro Data Result Diagrams: 01/02/22 05:40 01/02/22 05:40 Labs: Laboratory Results - last 24 hr 01/01/22 08:50: WBC 11.8 H, RBC 3.49 L, Hgb 10.1 L, Hct 31.3 L, MCV 89.7, MCH 28.9, MCHC 32.3, RDW Std Deviation 54.1 H, RDW Coeff of Mohsen 16.8 H, Plt Count 349, MPV 11.0, Immature Gran % (Auto) 2.500 H, Neut % (Auto) 75.8 H, Lymph % (Auto) 6.0 L, Talbot % (Auto) 14.1 H, Eos % (Auto) 1.2, Baso % (Auto) 0.4, Absolute Neuts (auto) 9.0 H, Absolute Lymphs (auto) 0.71 L, Nucleated RBC % 0, Diff Path Review May foll, Polychromasia 1+, Anisocytosis 1+ 01/01/22 08:50: Sodium 132 L, Potassium 4.1, Chloride 102, Carbon Dioxide 21.0, Anion Gap 9, BUN 49 H, Creatinine 0.74, Estim Creat Clear Calc 77.67, Est GFR (MDRD) Af Amer 106, Est GFR (MDRD) Non-Af 88, BUN/Creatinine Ratio 66.3 H, Glucose 132 H, Calcium 9.1, Magnesium 1.8, Total Bilirubin 0.40, AST 42 H, ALT 58 H, Alkaline Phosphatase 438 H, Total Protein 7.3, Albumin 1.8 L, Globulin 5.5 H, Albumin/Globulin Ratio 0.3 L 01/01/22 11:53: POC Glucose 147 H 01/01/22 16:19: POC Glucose 127 H 01/01/22 23:14: POC Glucose 158 H 01/02/22 05:35: POC Glucose 142 H 01/02/22 05:40: WBC 9.6, RBC 3.38 L, Hgb 9.8 L, Hct 30.3 L, MCV 89.6, MCH 29.0, MCHC 32.3, RDW Std Deviation 54.5 H, RDW Coeff of Mohsen 16.8 H, Plt Count 317, MPV 11.0 01/02/22 05:40: Sodium 133 L, Potassium 3.2 L, Chloride 100, Carbon Dioxide 23.0, Anion Gap 10, BUN 58 H, Creatinine 0.71, Estim Creat Clear Calc 80.95, Est GFR (MDRD) Af Amer 112, Est GFR (MDRD) Non-Af 93, BUN/Creatinine Ratio 82.0 H, Glucose 120 H, Calcium 8.8 01/02/22 05:40: PT 14.8, INR 1.2, APTT 25.1 Micro: Microbiology 12/20/21 09:40 Blood Culture (Wb) - Port Blood Culture - Final No growth in 5 days. 12/20/21 09:31 Blood Culture (Wb) - Anticubital Left Blood Culture - Final No growth in 5 days. 12/20/21 12:05 Urine, Clean Catch Urine Culture - Final Mixed Gram Positive Organisms Physical Exam Const oriented x3 and no apparent distress General Appearance: ill appearing Resp normal respiratory effort GI GI Narrative: Less distended, less firm, nontender to palpation. PEG tube currently to gravity with thicker green bilious output Assessment & Plan Assessment/Plan (1) Gastrostomy complication: PLAN: Patient with displacement of her PEJ tube over the weekend required emergent replacement with a PEG tube. Currently tube is to gravity and patient is requesting a oral diet. I have discussed both with patient and hospitalist team her options bein) discharge to home with TPN and G-tube for decompressi on 2) potential transfer to facility with interventional radiology capabilities for conversion of PEG to PEJ or 3) discharged home on TPN with outpatient conversion to G-J tube and initiation of enteral feeds. At this time patient is requesting discharge to home and we will look to see what can be arranged as an outpatient. In the meantime we have advanced her diet and will assess her for tolerance. Certainly, if she is able to tolerate an oral diet this would obviate the need to obtain access to the jejunum. However, patient did have a small bowel series last week that showed an obstruction near the ligament of Treitz so I have concerned that this would be of limited duration. (2) Constipation: QUALIFIERS: Constipation type: other constipation type Qualified Code(s): K59.09 - Other constipation PLAN: Patient successful with a bowel movement following suppository on 12/30/2021. We held a discussion regarding her history of constipation and use of food or drink to stimulate a bowel movement. I shared with her that her former remedies may no longer be as effective and she may require regular use of a promotility agent or suppositories at home. I recommended continuation of these therapies to try to prevent food stuff from becoming hung up in her bowel due to dehydration. (3) Colon cancer: QUALIFIERS: Colon location: ascending Qualified Code(s): C18.2 - Malignant neoplasm of ascending colon Charges/Coding Visit Charges Inpatient E&M: 60085 Subs Hosp L2
--- NOTE | 2022-01-02 09:11 | RAD_ITS ---
INDICATION: post thora EXAMINATION/TECHNIQUE: X-RAY - XR Chest 2 Views COMPARISON: Chest radiograph from 12/31/2021 FINDINGS/ RAD/Chest Insp/Exp 2 View IMPRESSION: LINES/DEVICES: Stable right-sided Mediport catheter Small residual left pleural effusion with associated left basilar atelectasis, significantly improved from prior status post thoracentesis. No sizable pneumothorax. Stable small right pleural effusion. Similar extent and distribution of patchy bilateral opacities. Heart size is stable. Bones and soft tissues are unchanged. Electronically Signed: Jose Manuel Nelson, at 9:29 EDT ,
--- NOTE | 2022-01-02 09:48 | PN.HOSP_ITS ---
Subjective Subjective Follow-up on Objective Data Objective Data Vital Signs: Vital Signs Temp Pulse Resp BP Pulse Ox 97.2 F L 122 H 18 113/84 H 94 01/02/22 07:45 01/02/22 07:45 01/02/22 07:45 01/02/22 07:45 01/02/22 07:45 Oxygen Flow Rate (L/min) [1103 3 ] Oxygen Flow Rate (L/min) [1058 3 ] Oxygen Flow Rate (L/min) [1053 3 ] Oxygen Flow Rate (L/min) [1048 3 ] Oxygen Flow Rate (L/min) [1043 3 ] Oxygen Flow Rate (L/min) [1038 3 ] Oxygen Flow Rate (L/min) [1033 3 ] Oxygen Flow Rate (L/min) [1028 3 ] Oxygen Flow Rate (L/min) [1023 3 ] Oxygen Flow Rate (L/min) [1013 3 ] Oxygen Flow Rate (L/min) [1008 3 ] Oxygen Flow Rate (L/min) [10] 3 Oxygen Flow Rate (L/min) [9] 3 Oxygen Flow Rate (L/min) [7] 3 Oxygen Flow Rate (L/min) [6] 3 Oxygen Flow Rate (L/min) [5] 3 Oxygen Flow Rate (L/min) [4] 3 Oxygen Flow Rate (L/min) [3] 3 Oxygen Flow Rate (L/min) [2] 3 Oxygen Flow Rate (L/min) [1 ( 2 Initial Baseline)] Oxygen Flow Rate (L/min) 4 Oxygen Delivery Method [1103] Nasal Cannula Oxygen Delivery Method [1058] Nasal Cannula Oxygen Delivery Method [1053] Nasal Cannula Oxygen Delivery Method [1048] Nasal Cannula Oxygen Delivery Method [1043] Nasal Cannula Oxygen Delivery Method [1038] Nasal Cannula Oxygen Delivery Method [1033] Nasal Cannula Oxygen Delivery Method [1028] Nasal Cannula Oxygen Delivery Method [1023] Nasal Cannula Oxygen Delivery Method [13] Nasal Cannula Oxygen Delivery Method [1013] Nasal Cannula Oxygen Delivery Method [1008] Nasal Cannula Oxygen Delivery Method [10] Nasal Cannula Oxygen Delivery Method [9] Nasal Cannula Oxygen Delivery Method [8] Nasal Cannula Oxygen Delivery Method [7] Nasal Cannula Oxygen Delivery Method [6] Nasal Cannula Oxygen Delivery Method [5] Nasal Cannula Oxygen Delivery Method [4] Nasal Cannula Oxygen Delivery Method [3] Nasal Cannula Oxygen Delivery Method [2] Nasal Cannula Oxygen Delivery Method [1 ( Nasal Cannula Initial Baseline)] Oxygen Delivery Method Nasal Cannula Weight: 87.5 kg Body Mass Index (BMI) 33.3 Intake & Output: Intake and Output for Last 24 Hours 12/31/21 01/01/22 01/02/22 23:59 23:59 23:59 Intake Total 2973.7 / 2973.7 2615.95 / 2615.95 112.75 / 112.75 Output Total 2900 / 2900 3450 / 3450 650 / 650 Balance 73.7 / 73.7 -834.05 / -834.05 -537.25 / -537.25 Medical Nutrition Assessment Dietitian: Malnutrition Criteria Met Start: 12/21/21 15:59 Freq: Status: Active Protocol: Document 01/01/22 10:43 JOHN (Rec: 01/01/22 10:43 JOHN [id number]) Nutrition Malnutrition Evidence of Malnutrition Exists Yes Malnutrition (severe): Acute Illness/Injury Evidenced By Suboptimal Energy Intake ( Severe),Weight Loss (Severe) Intake Problem Inadequate Oral Intake Etiology related to altered GI function /bowel obstruction Signs/Symptoms as evidenced estimated PO intake meeting <75% of estimated energy needs >1 week Status Active Problem Clinical Problem Acute Disease or Injury Related Malnutrition Etiology Severe protein-calorie malnutrition in the context of acute illness related to altered GI function and inadequate oral intake Signs/Symptoms as evidenced by wt loss ~10-12 % x 3 months, poor oral intake meeting less than 50% estimated nutrition needs x past 2-3 weeks Status Active Problem Recommendation Dietitian Recommendations/Changes 1.) TPN day #10: 2L Clinimix 8 % AA/14% dextrose solution w/ electrolytes, MVI, trace minerals, and folic acid at 84ml/hr to provide 1593 calories and 160 g protein per day. 2.) Continue daily weights. 3.) Continue monitoring of labs/electrolytes. Lab / Micro Data Result Diagrams: 01/02/22 05:40 01/02/22 05:40 Labs: Laboratory Results - last 24 hr 01/01/22 08:50: Diff Path Review May foll, Polychromasia 1+, Anisocytosis 1+ 01/01/22 11:53: POC Glucose 147 H 01/01/22 16:19: POC Glucose 127 H 01/01/22 23:14: POC Glucose 158 H 01/02/22 05:35: POC Glucose 142 H 01/02/22 05:40: WBC 9.6, RBC 3.38 L, Hgb 9.8 L, Hct 30.3 L, MCV 89.6, MCH 29.0, MCHC 32.3, RDW Std Deviation 54.5 H, RDW Coeff of Mohsen 16.8 H, Plt Count 317, MPV 11.0 01/02/22 05:40: Sodium 133 L, Potassium 3.2 L, Chloride 100, Carbon Dioxide 23.0, Anion Gap 10, BUN 58 H, Creatinine 0.71, Estim Creat Clear Calc 80.95, Est GFR (MDRD) Af Amer 112, Est GFR (MDRD) Non-Af 93, BUN/Creatinine Ratio 82.0 H, Glucose 120 H, Calcium 8.8 01/02/22 05:40: PT 14.8, INR 1.2, APTT 25.1 Micro: Microbiology 12/20/21 09:40 Blood Culture (Wb) - Port Blood Culture - Final No growth in 5 days. 12/20/21 09:31 Blood Culture (Wb) - Anticubital Left Blood Culture - Final No growth in 5 days. 12/20/21 12:05 Urine, Clean Catch Urine Culture - Final Mixed Gram Positive Organisms Radiography Diagnostic Testing: Radiology Impression Chest X-Ray 01/02/22 09:11 IMPRESSION: LINES/DEVICES: Stable right-sided Mediport catheter Small residual left pleural effusion with associated left basilar atelectasis, significantly improved from prior status post thoracentesis. No sizable pneumothorax. Stable small right pleural effusion. Similar extent and distribution of patchy bilateral opacities. Heart size is stable. Bones and soft tissues are unchanged. Electronically Signed: Jose Manuel Nelson, at 9:29 EDT , Assessment & Plan Assessment/Plan (1) Colon cancer: QUALIFIERS: Colon location: ascending Qualified Code(s): C18.2 - Malignant neoplasm of ascending colon (2) Malignant pleural effusion: PLAN: Patient is a 51-year-old lady with history of metastatic colon c ancer who presented with abdominal pain constipation nausea and vomiting. CT of the abdomen and pelvis obtained on admission demonstrated progressive thickening of the ascending colon with findings suggestive of omental metastasis, left pleural effusion with left basilar infiltration/atelectasis and mild right basilar atelectasis. Admitted to regular nursing floor for further management 1. Abdominal pain ? CT on admission did show progressive thickening of the ascending colon with findings suggestive of omental metastasis. Consult was placed to GI patient was seen by Dr. Morfin who did perform EGD demonstrating esophagitis and duodenitis and excess gastric fluid. Patient had a removable PEG tube placed. 11/26/2021 Patient seen still has significant drainage by gravity from her PEG t ube. CT of the abdomen ordered 12/26/2021 demonstrated multiple areas of bowel wall thickening with no evidence of obstruction no bowel dilatation. Case was discussed with Dr Schwarz with oncology decision was made to consult general surgery Case discussed with Dr. Sifuentes 12/28/2021; Patient underwent small bowel series on 12/27/2021 findings as below Distended proximal small bowel with slow transit but otherwise no bowel obstruction as most of the contrast passes through the small and large bowel by 8.5 hours. Patient however did not have any bowel movement do suspect the contrast might have been started through her NG tube which is currently hooked to gravity. Plan is to repeat KUB this a.m. Patient was also seen in consultation by Dr. Sifuentes with general surgery his notes and recommendations reviewed including decision not to proceed with any surgical intervention 12/29/2021; Patient seen admits to passing some flatus. Patient was seen by general surgery the day prior. Plan is for patient to undergo a GJ conversion of the patient's current PEG tube once materials are available 12/30/2021; had an extensive discussion with oncology, Oumou who had spoken t o surgical oncologist Dr. Shelia fierro at [facility] who recommended conservative management at this point. Patient also did express the desire to be discharged home. Case management subsequently consulted to assist with the discharge process once patient GJ conversion has been performed -12/31/2021; Patient underwent GJ tube placement by interventional radiology the day prior. Patient to however fell out. Consult placed to general surgery. Plan for patient to undergo tube replacement and anesthesia in OR. Patient is very tearful and distraught and is very insistent on being discharged home. She however wants to remain full code at this point ?01/01/2022; Patient underwent placement of an externally removable PEG by Dr. Botello on 12/31/2021 after an original PEG tube became dislodged. Consult has been placed to interventional radiology for placement of the GJ tube. 2. Large left-sided pleural effusion ?01/01/2022 suspected to be secondary to malignant pleural effusion. Patient also did develop respiratory distress imaging studies obtained the day prior demonstrated large left sided pleural effusion. Patient started on Lasix consult placed to interventional radiology once again for ultrasound-guided thoracocentesis in a.m. 3. Severe protein calorie malnutrition ? As evidenced by suboptimal energy intake and severe weight loss this is related to patient underlying metastatic colon cancer. Consult was placed to dietitian. TPN was recommended which has been initiated. Plan is for patient to be discharged home once case management is able to arrange for TPN to be administered at home 4. Stage IV: CA ? Patient currently being managed and followed by oncology ?01/01/2022. Had an extensive discussion with the patient regarding her prognosis. Patient still wants to remain full code 5. Class I obesity with BMI of 33.5 ? Weight loss advised 6. Hypokalemia ? Corrected per protocol 7. Hypomagnesemia -corrected per protocol 8. History of previous DVT/PE ? On Eliquis held for patient's multiple procedures 9. 4. Depression with anxiety ? Patient is on escitalopram as well as buspirone 11. Anemia - Secondary to chronic disorder monitoring H&H and transfuse if patient becomes symptomatic or hemoglobin falls below 7 12. DVT prophylaxis ? On enoxaparin with plans to hold a.m. dose for patient procedure Charges/Coding Visit Charges Inpatient E&M: 95776 Subs Hosp L2
[2022-01-02 10:06] VITALS: BP 120/70; PULSE 120; RESP 18; TEMP 36.8; O2SAT 100
--- NOTE | 2022-01-02 10:09 | CASEMGMT ---
According to [facility] website, the following tertiary facilities are in network: [facility], [place], [facility], [facility], [facility], [facility], [facility], [facility] and . Notified Tuyet BARDALES of the above.
[2022-01-02 10:17] LABS: Body Fluid Mononuclear WBC # 0.315 10^3/uL; Body Fluid Mononuclear WBC % 84.3 %; Body Fluid Polynuclear WBC # 0.059 10^3/uL; Body Fluid Polynuclear WBC % 15.7 %; Body Fluid Total Cells Counted 0.397 10^3/ul; Red Cell Count/Body Fluid 0.033 10^6/ul; White Blood Count/Body Fluid 0.374 10^3/uL
[2022-01-02] MEDS: Potassium Chloride 10mEq/100mL 10 MEQ/100 ML IV.SOLN. 100 MEQ IV BOLUS ×4 (10:29→14:43)
[2022-01-02] MEDS: Pantoprazole Sodium 40 MG Tablet PO (10:37)
[2022-01-02] MEDS: Senna Tablet 1 TABLET PO (10:37)
[2022-01-02] MEDS: Polyethylene Glycol 3350 17 GM PACKET PO (10:38)
[2022-01-02] MEDS: busPIRone 5 MG Tablet 10 MG PO (10:38)
[2022-01-02] MEDS: Escitalopram Oxalate 20 MG Tablet PO (10:39)
[2022-01-02 10:45] LABS: Appearance/Body Fluid SL CLDY; Auto B Fluid Analyzer BKGD Ct COUNTS W/IN LIMITS (W/IN LIMITS); Color/Body Fluid YELLOW; Source- Body Fluid THORACENTESIS
[2022-01-02 10:47] LABS: Glucose, Body Fluid 86 mg/dL (40-70); LDH,Body Fluid 453 Units/l (Not Establ.); Protein, Body Fluid 4.6 g/dL (Not Establ.)
--- NOTE | 2022-01-02 10:51 | CASEMGMT ---
Addendum entered by Sally Hurtado 01/02/22 15:04: Spoke with hospitalist who would like RN AMY to set up PEJ placement as outpt. TC to radiology, spoke with Florence, unable to be done at [facility]. Hospitalist updated, requested appt be made at [facility]. TC to [facility], left message with IR nurse to return call. Addendum entered by Sally Hurtado 01/02/22 15:02: Received tc back from Linda at [facility], states updated labs are needed as well as note stating pt can start TPN tomorrow. This note faxed as well as discharge summary from hospitalist and labs. Plan: Pt to dc today. HHC and TPN to start in the morning. Addendum entered by Sally Hurtado 01/02/22 14:25: 1347-Received notification from Jeni at [facility] that the TPN may not be delivered until [place]. Updated hospitalist, plan for pt to dc home with HHC starting tommorrow morning. TC to Magali at [facility], that can be accommodated. Spoke in person to who confirms he will follow the HHC and TPN. Addendum entered by Sally Hurtado 01/02/22 12:31: BENITO REYES in to pt room with hospitalist who provided pt with options. Pt would like to return home with outpt f/u. Pt to dc today if susan liquid diet. TC to [facility] Magali to make aware of change in dc plan. TC to [facility], left vm for Linda. TC to floor plan adjuster Nazanin and confirmed TPN rx with lipids, faxed this to [facility] at this time requesting delivery tonarlette. Original Note: Discussed pt care with CATIA Montanez- plan for pt to start full liquid diet and if tolerates and pt able to empty PEG for comfort, dc tomorrow home with TPN. TC to Magali at [facility] to update on plan and verify availability for evening SOC, left message.
[2022-01-02 11:33] LABS: Lymphocytes 32 %; Macrophages 7 %; Monocytes 28 %; Neutrophil (Segs) 33 %
[2022-01-02 12:18] LABS: Body Fluid QC Type(s) BF1Q
[2022-01-02] MEDS: morphine (oral solution) 10MG/0.5ML Syringe 10 MG SL (12:32)
[2022-01-02 12:45] LABS: Bedside Glucose 175 mg/dL (74-106)
--- NOTE | 2022-01-02 13:00 | DCINST_ITS ---
Discharge Instructions Diet Discharge Diet: - (FULL LIQUID DIET) Activity Discharge Activity: Return to Normal Activity Follow Up Care Test Results: Test results from this visit will be discussed in further detail at your follow-up appointment, if applicable. Discharge Plan Admission Admit Date/Time: 12/21/21 12:22 Primary Reason for Your Visit: Abdominal pain Attending Provider: Josselin Monet Primary Care Provider: [facility]on [employer] Consulting Providers: Satinder David ; Trung Schwarz ; Chasidy Blue ; José Miguel Simental ; Jose Conrad ; Farzad Way ; Mauricio Kaur ; Suzi Coello NP ; Earl Sifuentes Instructions Patient Instructions: Your Gastro-Jejunum (G-J) Tube Additional Instructions / Restrictions: Follow-up in the outpatient for PEJ. Discharge Orders/Prescriptions Prescriptions: New polyethylene glycol 3350 17 gram Powder In Packet 17 g PO BID 30 Days Qty: 60 RF: 0 lorazepam 0.5 mg Tablet 0.5 mg PO Q4H PRN PRN (Reason: Anxiety/Agitation) Qty: 0 RF: 0 fentanyl 25 mcg/hr Patch 72 Hour 25 mcg transdermal Q3D Qty: 0 RF: 0 bisacodyl [Dulcolax (bisacodyl)] 10 mg suppository 10 mg NJ DAILY PRN (Reason: constipation) 30 Days Qty: 30 RF: 0 Continued prochlorperazine maleate [Compazine] 5 mg tablet 5 mg PO TID PRN (Reason: nausea and vomiting) Qty: 30 RF: 0 omeprazole 40 mg capsule,delayed release(DR/EC) 40 mg PO DAILY Qty: 90 RF: 3 methadone 5 mg tablet 5 mg PO BID RF: 0 buspirone 10 mg tablet 10 mg PO BID RF: 0 escitalopram oxalate 20 mg tablet 20 mg PO DAILY RF: 0 sennosides [Senna Laxative] 8.6 mg tablet 8.6 mg PO BID Qty: 60 RF: 2 ondansetron 8 mg tablet,disintegrating 8 mg PO Q8H PRN (Reason: nausea and vomiting) Qty: 30 RF: 2 scopolamine base 1 mg over 3 days patch 3 day 1 patch transdermal Q3D PRN (Reason: nausea and vomiting) Qty: 10 RF: 2 Discontinued hydrocodone-acetaminophen 5-325 mg tablet 1 tab PO Q6H PRN (Reason: Pain) RF: 0 Eliquis 5 mg tablet 5 mg PO BID Qty: 49 RF: 0 haloperidol 1 mg tablet 1 mg PO BID Qty: 4 RF: 0 lidocaine-prilocaine 2.5-2.5 % cream 1 applic topical ONCE PRN (Reason: port access) 30 Days Qty: 30 RF: 2 dicyclomine 20 mg tablet 20 mg PO BID Qty: 60 RF: 2 [facility] - In 1 Week Trung Schwarz MD [NON-STAFF] - Within 2 Weeks Cyril Morfin DO [STAFF PHYSICIAN] - Within 2 Weeks Disposition Disposition (needs filled in before D/C Order can be placed): Home, Self Care
[2022-01-02] MEDS: LORazepam 0.5 MG Tablet PO (13:06)
[2022-01-02 13:30] LABS: Pathologist Review Reviewed
--- NOTE | 2022-01-02 13:31 | DS.PCM_ITS ---
Providers Date of Admission: 12/21/21 Date of Discharge: 01/02/22 Primary Care Physician: [facility] Consultations 12/20/21 14:57 Consult: Gastroenterology Routine Consulting Provider: [facility] Reason for Consult: Constipation EMERGENT Consult: No MD Notified: Yes Date Notified: 12/20/21 Time Notified: 15:39 Method of Notification: Text 12/24/21 12:34 Consult: Oncology/Hematology Routine Consulting Provider: [facility] Reason for Consult: colon cancer EMERGENT Consult: No MD Notified: Yes Date Notified: 12/24/21 Time Notified: 12:34 Method of Notification: Verbal 12/27/21 08:43 Consult: General Surgery Routine Consulting Provider: Earl Sifuentes Reason for Consult: bowel obstruction EMERGENT Consult: No MD Notified: Yes Date Notified: 12/27/21 Time Notified: 08:45 Method of Notification: Verbal Reason For Visit: CONSTIPATION Diagnosis Discharge Diagnosis (1) Gastrostomy complication: Status: Acute Code(s): K94.20 - Gastrostomy complication, unspecified (2) Constipation: Status: Resolved Code(s): K59.00 - Constipation, unspecified Qualifiers: Constipation type: other constipation type Qualified Code(s): K59.09 - Other constipation (3) Colon cancer: Status: Chronic Code(s): C18.9 - Malignant neoplasm of colon, unspecified Qualifiers: Colon location: ascending Qualified Code(s): C18.2 - Malignant neoplasm of ascending colon (4) Severe protein-calorie malnutrition: Status: Acute Code(s): E43 - Unspecified severe protein-calorie malnutrition (5) Hypokalemia: Status: Acute Code(s): E87.6 - Hypokalemia (6) Pleural effusion: Status: Acute Code(s): J90 - Pleural effusion, not elsewhere classified (7) Malignant pleural effusion: Status: Chronic Code(s): J91.0 - Malignant pleural effusion Medications at Discharge Home Medications buspirone 10 mg PO BID 06/13/21 escitalopram oxalate 20 mg PO DAILY 06/13/21 prochlorperazine maleate 5 mg tablet 5 mg PO TID PRN #30 tab 08/01/21 sennosides 8.6 mg tablet 8.6 mg PO BID #60 tab 08/01/21 omeprazole 40 mg capsule,delayed release 40 mg PO DAILY #90 cap 10/07/21 methadone 5 mg tablet 5 mg PO BID tab 10/25/21 ondansetron 8 mg disintegrating tablet 8 mg PO Q8H PRN #30 tab 11/04/21 scopolamine base 1 mg over 3 days transdermal patch 1 patch TRANSDERMAL Q3D PRN #10 ea 11/04/21 apixaban [Eliquis] 5 mg PO BID 30 Days #60 tab 01/02/22 bisacodyl [Dulcolax (bisacodyl)] 10 mg MT DAILY PRN 30 Days #30 ea 01/02/22 fentanyl 25 mcg TRANSDERMAL Q3D #0 ea 01/02/22 furosemide [Lasix] 40 mg PO BID 30 Days #60 tab 01/02/22 lorazepam 0.5 mg PO Q4H PRN PRN #0 tab 01/02/22 polyethylene glycol 3350 17 g PO BID 30 Days #60 ea 01/02/22 Hospital Course Operations None Procedures EGD () and Peg tube placement Summary of Care Provided Minutes Spent on Discharge: 35 Hospital Course: 51 y/o female with past medical history of stage IV colon CA, on chemotherapy, history of DVT/PE on Eliquis, anxiety/depression who comes in with abdominal pain, nausea, vomiting. CT scan of the abdomen pelvis on a dmission showed progressive thickening with ascending colon with findings suggestive of omental metastasis. She had electrolyte imbalances that were replaced. GI was consulted, EGD performed showed esophagitis and duodenitis with excessive gastric fluid. A feeding tube was placed. Patient had a copious GI aspirate from NG tube to suction. Patient was said not to be a surgical candidate. GI put in palliative decompressive, externally removable PEG tube. Patient had severe protein calorie malnutrition during this hospital stay. TPN was started. Oncology and general surgery were consulted during this hospital stay. Patient had a small bowel follow-through. She was found to have a partial obstruction mechanical blockage at the level of ligament of Treitz. She was also managed on Dulcolax suppositories. She displaced her existing gastrostomy tube and had a PEG tube placed on 12/31. Patient was found to have a large left-sided pleural effusion and underwent thoracocentesis. On 01/02/22, patient admitted to having a large bowel movement. She was started on full liquid diets, she underwent thoracocentesis with 705 mils of fluid removed. Fluid analysis were pending at time of discharge. She was able to tolerate full liquid diet. She could not have her GJ tube replaced. She was discharged home with full liquid diet and TPN to return for GJ tube placement in the outpatient. Patient also qualified for oxygen and was discharged on 2 L of oxygen. Physical Exam Narrative Physical exam: General: Alert, oriented x3, cooperative, appears frail, on 2 L of oxygen HEENT: Atraumatic Oral: Moist Mucosa Neck: Supple Lungs: Clear to auscultation Cardiovascular: HS I+II, regular, no murmurs Abdomen: PEG tube in situ, draining bilious fluid to gravity, bowel Sounds Present, Soft, non tender Extremities: No edema Medical Records Data Medical Nutrition Assessment Dietitian: Malnutrition Criteria Met Start: 12/21/21 15:59 Freq: Status: Active Protocol: Document 01/01/22 10:43 JOHN (Rec: 01/01/22 10:43 [facility] [id number]) Nutrition Malnutrition Evidence of Malnutrition Exists Yes Malnutrition (severe): Acute Illness/Injury Evidenced By Suboptimal Energy Intake ( Severe),Weight Loss (Severe) Intake Problem Inadequate Oral Intake Etiology related to altered GI function /bowel obstruction Signs/Symptoms as evidenced estimated PO intake meeting <75% of estimated energy needs >1 week Status Active Problem Clinical Problem Acute Disease or Injury Related Malnutrition Etiology Severe protein-calorie malnutrition in the context of acute illness related to altered GI function and inadequate oral intake Signs/Symptoms as evidenced by wt loss ~10-12 % x 3 months, poor oral intake meeting less than 50% estimated nutrition needs x past 2-3 weeks Status Active Problem Recommendation Dietitian Recommendations/Changes 1.) TPN day #10: 2L Clinimix 8 % AA/14% dextrose solution w/ electrolytes, MVI, trace minerals, and folic acid at 84ml/hr to provide 1593 calories and 160 g protein per day. 2.) Continue daily weights. 3.) Continue monitoring of labs/electrolytes. Weight / BMI Weight Weight: 87.5 kg Body Mass Index (BMI) 33.3 ABG / Lab / Microbiology Data Result Diagrams: 01/02/22 05:40 01/02/22 05:40 Laboratory: Laboratory Results - last 24 hr 01/01/22 08:50: Diff Path Review Reviewed 01/01/22 16:19: POC Glucose 127 H 01/01/22 23:14: POC Glucose 158 H 01/02/22 05:35: POC Glucose 142 H 01/02/22 05:40: WBC 9.6, RBC 3.38 L, Hgb 9.8 L, Hct 30.3 L, MCV 89.6, MCH 29.0, MCHC 32.3, RDW Std Deviation 54.5 H, RDW Coeff of Mohsen 16.8 H, Plt Count 317, MPV 11.0 01/02/22 05:40: Sodium 133 L, Potassium 3.2 L, Chloride 100, Carbon Dioxide 23.0, Anion Gap 10, BUN 58 H, Creatinine 0.71, Estim Creat Clear Calc 80.95, Est GFR (MDRD) Af Amer 112, Est GFR (MDRD) Non-Af 93, BUN/Creatinine Ratio 82.0 H, Glucose 120 H, Calcium 8.8 01/02/22 05:40: PT 14.8, INR 1.2, APTT 25.1 01/02/22 12:40: POC Glucose 175 H 01/02/22 : Fluid Glucose 86 H, Fluid Total Protein 4.6, Fluid LDH 453 01/02/22 : Fluid Source THORACENTESIS, Fluid Color YELLOW, Fluid Appearance SL CLDY, Fluid WBC 0.374, Fluid RBC 0.033, Fluid Tot Cell Count 0.397 H, Fld Polynuclear WBCs # 0.059, Fld Polynuclear WBCs % 15.7, Fluid Mononuclear WBCs 0.315, Fld Mononuclear WBCs % 84.3, Fluid Neutrophils 33, Fluid Lymphocytes 32, Fluid Monocytes 28, Fluid Macrophages 7, Fl Pathologist Comment May follow, Fluid Comment 2 SEE COMMENT Microbiology: Microbiology 12/20/21 09:40 Blood Culture (Wb) - Port Blood Culture - Final No growth in 5 days. 12/20/21 09:31 Blood Culture (Wb) - Anticubital Left Blood Culture - Final No growth in 5 days. 12/20/21 12:05 Urine, Clean Catch Urine Culture - Final Mixed Gram Positive Organisms Radiography Diagnostic Testing: Radiology Impression Thoracentesis Ultrasound 01/02/22 07:00 IMPRESSION: Ultrasound-guided diagnostic and therapeutic left thoracentesis. Electronically Signed: Jose Manuel Nelson, at 10:06 EDT , Chest X-Ray 01/02/22 09:11 IMPRESSION: LINES/DEVICES: Stable right-sided Mediport catheter Small residual left pleural effusion with associated left basilar atelectasis, significantly improved from prior status post thoracentesis. No sizable pneumothorax. Stable small right pleural effusion. Similar extent and distribution of patchy bilateral opacities. Heart size is stable. Bones and soft tissues are unchanged. Electronically Signed: Jose Manuel Nelson, at 9:29 EDT , D/C Instructions Discharge Diet: - (FULL LIQUID DIET) Meaningful Use Info Meaningful Use Diagnoses (Choose all that apply): None applicable Discharge Plan Admission Admit Date/Time: 12/21/21 12:22 Primary Reason for Your Visit: Abdominal pain Attending Provider: Josselin Monet [facility] Providers: Satinder David ; Trung Schwarz ; Chasidy Blue ; José Miguel Simental ; Jose Conrad ; Farzad Way ; Mauricio Kaur ; Suzi Coello NP ; Earl Sifuentes Instructions Patient Instructions: Your Gastro-Jejunum (G-J) Tube Additional Instructions / Restrictions: Follow-up in the outpatient for PEJ. Discharge Orders/Prescriptions Prescriptions: New polyethylene glycol 3350 17 gram Powder In Packet 17 g PO BID 30 Days Qty: 60 RF: 0 lorazepam 0.5 mg Tablet 0.5 mg PO Q4H PRN PRN (Reason: Anxiety/Agitation) Qty: 0 RF: 0 fentanyl 25 mcg/hr Patch 72 Hour 25 mcg transdermal Q3D Qty: 0 RF: 0 bisacodyl [Dulcolax (bisacodyl)] 10 mg suppository 10 mg MT DAILY PRN (Reason: constipation) 30 Days Qty: 30 RF: 0 furosemide [Lasix] 40 mg tablet 40 mg PO BID 30 Days Qty: 60 RF: 0 Eliquis 5 mg tablet 5 mg PO BID 30 Days Qty: 60 RF: 0 Continued prochlorperazine maleate [Compazine] 5 mg tablet 5 mg PO TID PRN (Reason: nausea and vomiting) Qty: 30 RF: 0 omeprazole 40 mg capsule,delayed release(DR/EC) 40 mg PO DAILY Qty: 90 RF: 3 methadone 5 mg tablet 5 mg PO BID RF: 0 buspirone 10 mg tablet 10 mg PO BID RF: 0 escitalopram oxalate 20 mg tablet 20 mg PO DAILY RF: 0 sennosides [Senna Laxative] 8.6 mg tablet 8.6 mg PO BID Qty: 60 RF: 2 ondansetron 8 mg tablet,disintegrating 8 mg PO Q8H PRN (Reason: nausea and vomiting) Qty: 30 RF: 2 scopolamine base 1 mg over 3 days patch 3 day 1 patch transdermal Q3D PRN (Reason: nausea and vomiting) Qty: 10 RF: 2 Discontinued hydrocodone-acetaminophen 5-325 mg tablet 1 tab PO Q6H PRN (Reason: Pain) RF: 0 Eliquis 5 mg tablet 5 mg PO BID Qty: 49 RF: 0 haloperidol 1 mg tablet 1 mg PO BID Qty: 4 RF: 0 lidocaine-prilocaine 2.5-2.5 % cream 1 applic topical ONCE PRN (Reason: port access) 30 Days Qty: 30 RF: 2 dicyclomine 20 mg tablet 20 mg PO BID Qty: 60 RF: 2 Referrals / Follow Up: Trung Schwarz MD [NON-STAFF] - Within 2 Weeks FriendCyril DO [STAFF PHYSICIAN] - [facility] - In 1 Week Disposition Disposition (needs filled in before D/C Order can be placed): Home, Self Care Charges/Coding Visit Charges Inpatient E&M: 10360 Disch Hosp
[2022-01-02 14:30] LABS: LDH 291 U/L (84-246)
[2022-01-02 17:17] VITALS: BP 140/70; PULSE 110; RESP 20; TEMP 36.2; O2SAT 97
--- NOTE | 2022-01-03 09:22 | CASEMGMT ---
Addendum entered by Sally Hurtado 01/03/22 15:56: 1403-TC to Linda to see if paperwork received from 's office. Asked her to fax paperwork if it has not for RN CM to attempt to get signature. 1555-TC to [facility], spoke with Lauren to ensure all paperwork was signed and to see if TPN will be delivered. She states she will check with Linda and call this RN CM back. Received tc back from Linda who states script signed and TPN should be delivered around 7pm. TC to Magali at [facility] to make aware. Addendum entered by Sally Hurtado 01/03/22 12:16: Received signed rx from for PEJ. Faxed script, H&P, demo, DC instructions and DC summary to [facility] as below. Addendum entered by Sally Hurtado 01/03/22 11:22: TC to [facility], spoke with nurse Alyssa. She states for pt to have PEJ tube inserted and order would need to be faxed to [phone] with demos and H&P. They will then reach out to pt to schedule once this is received. Updated hospitalist. Original Note: TC from Magali at [facility], states nurse is at pt home and TPN is not there. TC to Linda at [facility], received vm. TC back to main line, spoke with Jeni, she states TPN will not be there until 4 or 5pm. TC back to Magali at [facility] to make aware, Jaimie Clinical Hay Buckler also honing machine set up operator.
[2022-01-03 14:23] LABS: Pathologist Comment/Body Fluid Reviewed
--- NOTE | 2022-01-04 10:19 | CASEMGMT ---
Addendum entered by Sally Hurtado 01/04/22 10:54: Discussed pt with hospitalist. TC to [facility] IR, pt has not been reached out to yet to schedule. [employer] states the soonest outpt exchange of tube is January 23. Updated hospitalist. Original Note: TC mouna De oLs Santos at [facility], states SN was out to see pt lastnight and TPN was initiated. States pt had been vomiting. Also states pt is currently in [facility] ER.
== END 2022-01-02 17:11 | disposition home health service (06) | DRG 374 ==
LOC: ED 13:55 → MS3 14:00
PROVIDERS: Internal Medicine; Internal Medicine Gastroenterology; Nurse Practitioner Family; Surgery; Admitting Provider Family Medicine; Emergency Provider Student in an Organized Health Care Education/Training Program; Visit Provider Internal Medicine
PROC: 0DJD8ZZ Inspection of Lower Intestinal Tract, Via Natural or Artificial Opening Endoscopic (ICD-10-PCS; CPT 45378; principal; 2021-12-21 11:25)
PROC: 0DJ08ZZ Inspection of Upper Intestinal Tract, Via Natural or Artificial Opening Endoscopic (ICD-10-PCS; CPT 43235; principal; 2021-12-23 15:55)
DX: C18.2 Malignant neoplasm of ascending colon (principal); E43 Unspecified severe protein-calorie malnutrition; R18.0 Malignant ascites; C78.6 Secondary malignant neoplasm of retroperitoneum and peritoneum; J91.0 Malignant pleural effusion; E27.8 Other specified disorders of adrenal gland; D63.8 Anemia in other chronic diseases classified elsewhere; K94.29 Other complications of gastrostomy; K59.09 Other constipation; E83.42 Hypomagnesemia; F41.8 Other specified anxiety disorders; E87.6 Hypokalemia; K29.70 Gastritis, unspecified, without bleeding; K29.80 Duodenitis without bleeding; K31.84 Gastroparesis; K21.00 Gastro-esophageal reflux disease with esophagitis, without bleeding; E66.9 Obesity, unspecified; Z79.899 Other long term (current) drug therapy; Z86.718 Personal history of other venous thrombosis and embolism; Z78.0 Asymptomatic menopausal state; Z79.01 Long term (current) use of anticoagulants; Z87.891 Personal history of nicotine dependence; Z68.35 Body mass index [BMI] 35.0-35.9, adult; Z86.711 Personal history of pulmonary embolism; T40.695A Adverse effect of other narcotics, initial encounter
CPT/HCPCS: 32555; 36415; 36591; 71045; 71046; 74018; 74019; 74177; 74250; 76000; 78306; 80048; 80053; 81001; 82945; 82962; 83605; 83615; 83690; 83735; 84100; 84157; 84478; 84484; 85025; 85027; 85610; 85730; 87040; 87086; 87088; 88108; 88305; 88313; 88341; 88342; 89050; 93005; 94640; 96361; 96374; 96375; 96376; 97802; 97803; 99156; 99157; 99285; A9503; J7030; J7040; J7050; Q9967; A4216; C1769; C1894; J1940; J2405

== ENCOUNTER 2022-01-04 07:30 | Inpatient (IN) | payer OTHER, SELFPAY ==
[2022-01-04] VITALS (12 sets, daily range): BP systolic 103–124; BP diastolic 59–98; PULSE 111–136; RESP 16–27; TEMP 36.3–37.2; O2SAT 92–96; BMI 30.2; BMI 32.1
--- NOTE | 2022-01-04 07:58 | EDS_ITS ---
HPI History of Present Illness Chief Complaint: Weakness Informant: patient Narrative Narrative: Patient presents after a recent 2-week stay in the hospital. She is a history of stage IV colon cancer. She had a partial small bowel obstruction and duodenitis. She was treated with TPN. She was discharged on the with a liquid diet and TPN. Patient states the ict customer support officer her TPN is supposed to come to her house today but she has not yet started this at home. She has not been able to keep anything down. She presents secondary to generalized weakness and not being able to care for herself at home. She denies fever or chills. She is passing gas but has not had a bowel movement since discharge. [facility] Medical History Anemia Anxiety and depression At high risk for deep venous thrombosis At high risk for venous thromboembolism (VTE) Back pain Chronic cough Colon cancer Dehydration DVT (deep venous thrombosis) Elevated serum creatinine Encounter for adjustment and management of vascular access device Encounter for chemotherapy management Former tobacco use GERD (gastroesophageal reflux disease) Heart burn History of steroid therapy Hypokalemia Hypomagnesemia Left leg pain Malignant ascites Migraine headache Morbid obesity Nausea & vomiting Oral candidiasis Post-menopausal Shortness of breath on exertion Wears dentures Wears glasses Weight loss Home Medications buspirone 10 mg PO BID 06/13/21 [History Last Taken 12/19/21] escitalopram oxalate 20 mg PO DAILY 06/13/21 [History Last Taken 12/19/21] prochlorperazine maleate 5 mg tablet 5 mg PO TID PRN #30 tab 08/01/21 [Rx Last Taken Unknown] sennosides 8.6 mg tablet 8.6 mg PO BID #60 tab 08/01/21 [Rx Last Taken 12/18/21] omeprazole 40 mg capsule,delayed release 40 mg PO DAILY #90 cap 10/07/21 [Rx Last Taken 12/19/21] methadone 5 mg tablet 5 mg PO BID tab 10/25/21 [History Last Taken 12/19/21] ondansetron 8 mg disintegrating tablet 8 mg PO Q8H PRN #30 tab 11/04/21 [Rx Last Taken Unknown] scopolamine base 1 mg over 3 days transdermal patch 1 patch TRANSDERMAL Q3D PRN #10 ea 11/04/21 [Rx Last Taken 12/18/21] apixaban [Eliquis] 5 mg PO BID 30 Days #60 tab 01/02/22 [Rx Last Taken Unknown] bisacodyl [Dulcolax (bisacodyl)] 10 mg MA DAILY PRN 30 Days #30 ea 01/02/22 [Rx Last Taken Unknown] fentanyl 25 mcg TRANSDERMAL Q3D #0 ea 01/02/22 [Rx Last Taken Unknown] furosemide [Lasix] 40 mg PO BID 30 Days #60 tab 01/02/22 [Rx Last Taken Unknown] lorazepam 0.5 mg PO Q4H PRN PRN #0 tab 01/02/22 [Rx Last Taken Unknown] polyethylene glycol 3350 17 g PO BID 30 Days #60 ea 01/02/22 [Rx Last Taken Unknown] morphine concentrate 01/04/22 [History Last Taken Unknown] Allergy/AdvReac Type Severity Reaction Status Date / Time No Known Allergies Allergy Verified 01/04/22 07:34 Family History Father Diabetes Mother Hypertension Brother Hypertension Surgical History History of cholecystectomy (~06/2021) S/P section S/P rotator cuff repair Social History household members: family Smoking Status: Former smoker how long ago did patient quit smoking: Quit 2 years prior, smoked 1/2 ppd since she was a teenager until quitting. alcohol intake: never substance use type: does not use ROS ROS ED Constitutional Constitutional ED: Denies chills or fever(s) Eyes Eyes: Denies change in vision ENT ENT ED: Denies sore throat Cardiovascular Cardiovascular: Denies chest pain Respiratory/Chest Respiratory/Chest: Denies cough or dyspnea Gastrointestinal Gastrointestinal: Reports nausea and vomiting; Denies abdominal pain Genitourinary Genitourinary ED: Denies dysuria Musculoskeletal Musculoskeletal: Denies back pain Integumentary Denies rash Neurologic Neurologic: Reports weakness; Denies headache(s) Allergic/Immunologic Allergic/Immunologic ED: Denies urticaria EXAM Physical Exam Const Vital Signs: 01/04/22 07:32 01/04/22 07:56 01/04/22 07:59 Temperature 97.3 F L Temperature Source Temporal Pulse Rate 125 H Respiratory Rate 16 Respiratory Effort Normal Blood Pressure 124/84 H 110/98 H Blood Pressure Mean 97 102 Pulse Ox 96 92 Oxygen Delivery Method Room Air Room Air 01/04/22 08:01 01/04/22 10:21 Temperature Temperature Source Pulse Rate 136 H Respiratory Rate Respiratory Effort Blood Pressure 103/85 H Blood Pressure Mean 91 Pulse Ox Oxygen Delivery Method Positive cachectic General Appearance ED: cachectic Nutritional Appearance: cachectic HEENT Reports dry mucous membranes Mouth ED: Yes dry mucous membranes Mouth: dry mucous membranes Eyes PERRL and EOMs intact bilaterally Neck supple Chest Wall inspection of chest normal and palpation of chest normal Resp normal respiratory effort Cardio Rate: tachycardic GI GI Narrative: Abdomen soft but slightly distended. Hypoactive bowel sounds. Palpation: soft Neuro oriented x3 Sensorium / Orientation: alert Psych mental status grossly normal Skin no rashes or lesions noted MDM MDM MDM Narrative Medical decision making narrative: Patient given IV fluids. Lab work obtained. Urinalysis ordered. CT scan of the abdomen pelvis ordered. Lab Data Attestation: I reviewed the patient's lab results. Labs: Laboratory Results - last 24 hr 01/04/22 01/04/22 08:10 08:10 WBC 20.6 H RBC 4.20 Hgb 11.9 L Hct 35.8 L MCV 85.2 MCH 28.3 MCHC 33.2 RDW Std Deviation 50.9 H RDW Coeff of Mohsen 16.6 H Plt Count 399 MPV 11.0 Immature Gran % (Auto) 2.200 H Neut % (Auto) 87.5 H Lymph % (Auto) 2.6 L [place] % (Auto) 7.1 Eos % (Auto) 0.4 Baso % (Auto) 0.2 Absolute Neuts (auto) 18.1 H Absolute Lymphs (auto) 0.53 L Nucleated RBC % 0 Differential Comment COMMENT Sodium 131 L Potassium 2.9 L Chloride 85 L Carbon Dioxide 29.0 Anion Gap 17 H BUN 102 H* Creatinine 2.05 H Estim Creat Clear Calc 28.04 Est GFR (MDRD) Af Amer 33 L Est GFR (MDRD) Non-Af 27 L BUN/Creatinine Ratio 49.8 H Glucose 191 H Calcium 9.9 Total Bilirubin 0.40 Direct Bilirubin 0.23 AST 31 ALT 52 Alkaline Phosphatase 522 H Total Protein 8.7 H Albumin 2.3 L Globulin 6.4 H Radiography Diagnostic Testing: Clinical Impression(s) from Imaging Studies Abdomen/Pelvis CT 01/04/22 08:52 IMPRESSION: 1. Overall favorable change. Mildly lesser perigastric fluid since prior study, although exam limited without IV contrast. 2. Stable omental stranding/study suggesting peritoneal carcinomatosis. Mild ascites in the right lower abdomen. 3. Suspicious left adrenal gland nodule with punctate calcifications, likely metastasis. 4. Gastrostomy tube. 5. Left larger than right pleural effusions with bilateral lower lobe atelectasis. 6. Persistent wall thickening of the right colon. No bowel obstruction. 7. Osteoblastic metastasis. 8. Bilateral inguinal/iliac chain adenopathy. Electronically Signed: Riccardo Green MD ([place]) at 10:15 EDT Reading Location ID and State: / [place] , Service support , Treatment and Re-Evaluation Narrative: White count elevated at 20.6. Chemistry studies significant for a sodium of 131, potassium 2.9, chloride 85. BUN is 102 and creatinine is 2.05. LFTs are elevated. Glucose is 191. CT flank reveals overall favorable change compared to prior study. Evidence of peritoneal carcinomatosis is noted. Gastrostomy tube is in place. Left larger than right pleural effusions appreciated. Persistent thickening of the right colon noted with no bowel obstruction. IV potassium replacement has been ordered. Patient be discussed with hospitalist regarding admission for correction of electrolytes and hydration. Discharge Plan Triage Chief Complaint: Weakness ED Provider: Jaycee Mathis Dx/Rx/DC Orders Clinical Impression: Leukocytosis, Hypokalemia, Acute renal failure Prescriptions: No Action prochlorperazine maleate [Compazine] 5 mg tablet 5 mg PO TID PRN (Reason: nausea and vomiting) Qty: 30 RF: 0 omeprazole 40 mg capsule,delayed release(DR/EC) 40 mg PO DAILY Qty: 90 RF: 3 methadone 5 mg tablet 5 mg PO BID RF: 0 buspirone 10 mg tablet 10 mg PO BID RF: 0 escitalopram oxalate 20 mg tablet 20 mg PO DAILY RF: 0 polyethylene glycol 3350 17 gram Powder In Packet 17 g PO BID 30 Days Qty: 60 RF: 0 lorazepam 0.5 mg Tablet 0.5 mg PO Q4H PRN PRN (Reason: Anxiety/Agitation) Qty: 0 RF: 0 fentanyl 25 mcg/hr Patch 72 Hour 25 mcg transdermal Q3D Qty: 0 RF: 0 bisacodyl [Dulcolax (bisacodyl)] 10 mg suppository 10 mg MA DAILY PRN (Reason: constipation) 30 Days Qty: 30 RF: 0 furosemide [Lasix] 40 mg tablet 40 mg PO BID 30 Days Qty: 60 RF: 0 Eliquis 5 mg tablet 5 mg PO BID 30 Days Qty: 60 RF: 0 morphine concentrate 100 mg/5 mL (20 mg/mL) solution RF: 0 sennosides [Senna Laxative] 8.6 mg tablet 8.6 mg PO BID Qty: 60 RF: 2 ondansetron 8 mg tablet,disintegrating 8 mg PO Q8H PRN (Reason: nausea and vomiting) Qty: 30 RF: 2 scopolamine base 1 mg over 3 days patch 3 day 1 patch transdermal Q3D PRN (Reason: nausea and vomiting) Qty: 10 RF: 2 Primary Care Provider: [facility]on Dukes Referrals: [facility] Dukes [Primary Care Provider] - Disposition Disposition: Acute Care Hospital [facility]
--- NOTE | 2022-01-04 07:58 | ED.RN ---
pt arrived with port accessed and infusing. pt states i think it is lipids. pt is a poor historian.
[2022-01-04] MEDS: 0.9% Normal Saline 1,000 ML 1000 ML IV (08:09)
[2022-01-04 08:19] LABS: Absolute Lymphocyte Count 0.53 X10^3/uL (0.83-4.51); Absolute Neutrophil Count 18.1 X10^3/uL (2.0-7.7); Basophil# 0.04 X10^3/uL; Basophil% 0.2 % (0-1); Eosinophil# 0.08 X10^3/uL; Eosinophils% 0.4 % (0-5); Hematocrit 35.8 % (37-47); Hemoglobin 11.9 g/dL (12.0-15.0); Lymphocyte # 0.53 X10^3/ul (0.83-4.51); Lymphocyte % 2.6 % (19-41); Mean Corp Hgb Conc 33.2 g/dL (32-36); Mean Corpuscular Hgb 28.3 pg (27.0-32.0); Mean Corpuscular Volume 85.2 fL (81-99); Monocyte# 1.47 X10^3/uL; Monocyte% 7.1 % (0-10); NRBC Flagged by Analyzer 0 % (0-5); Neutrophil # 18.06 X10^3/uL (2.7-7.7); Neutrophil % 87.5 % (47-70); POSITIVE DIFFERENTIAL YES; Platelet Count 399 K/mm3 (150-450); RBC Distribution Width CV 16.6 % (11.6-14.6); RBC Distribution Width SD 50.9 fl (35.1-43.9); White Blood Count 20.6 K/mm3 (4.4-11.0)
[2022-01-04 08:21] LABS: Differential Indicated SCAN CRITERIA MET
[2022-01-04 08:38] LABS: AST(SGOT) 31 U/L (15-37); Alanine Aminotransfer ALT/SGPT 52 U/L (13-56); Albumin, Serum 2.3 g/dL (3.2-5.0); Alkaline Phosphatase 522 U/L (45-117); Anion Gap 17 (5-15); BUN 102 mg/dL (7-18); BUN/Creat Ratio 49.8 RATIO (10-20); Bilirubin, Direct 0.23 mg/dL (0.00-0.30); Calcium,Total 9.9 mg/dL (8.5-10.1); Chloride 85 mmol/L (98-107); Creatinine, Serum 2.05 mg/dL (0.55-1.02); EST Glomerular Filtration Rate 27 mL/min (>60); Est Glom Filt Rate - Afr Amer 33 mL/min (>60); Estimated Creatinine Clearance 28.04 ml/min; Globulin 6.4 g/dL (2.2-4.2); Glucose 191 mg/dL (74-106); Potassium 2.9 mmol/L (3.5-5.1); Protein, Total 8.7 g/dL (6.4-8.2); Sodium Level 131 mmol/L (136-145)
--- NOTE | 2022-01-04 08:52 | CT_ITS ---
STUDY: CT ABDOMEN AND PELVIS WITHOUT CONTRAST REASON FOR EXAM: Female, 51 years old. pain, leukocytosis RADIATION DOSAGE (If Supplied By Facility): CTDIvol = ( 14.23 ) mGy, DLP = ( 732.29 ) mGycm TECHNIQUE: Transaxial images were obtained from the dome of the diaphragm to the symphysis pubis without oral contrast, and without intravenous contrast. Sagittal and coronal images were reconstructed. Individualized dose optimization techniques were used for this CT. COMPARISON: 12/26/2021 FINDINGS: Moderate left pleural effusion is slightly smaller as compared to prior study with persistent, albeit lesser atelectasis in the left lung base. Similar volume right pleural effusion. The visualized portions of the heart are within normal limits. Normal liver. There is non-visualization of the gallbladder, which may be secondary to either contraction or a prior cholecystectomy. Normal spleen. Normal pancreas. Suspicious nodule of the left adrenal gland measuring 1.7 cm with punctate calcifications redemonstrated. Right adrenal gland is stable. No hydronephrosis. Gastrostomy tube extends to the stomach. The fluid adjacent to the stomach on the prior CT has decreased in size although limited evaluation given lack of IV contrast. Scattered stranding in the omentum with some slight nodules overall stable. Slight amount of ascites in the right lower quadrant. No dilated loops of small bowel. Residual contrast is seen within the colon. Portions of the colon are not well evaluated given lack of distention. Persistent thickening of the right colon extending to the hepatic flexure has not significantly changed. The appendix is visualized and appears normal. There is diffuse atherosclerotic calcification of the abdominal aorta, without a demonstrated aneurysm. Normal inferior vena cava. There is borderline retroperitoneal lymphadenopathy with enlarged nodes no greater than 10mm in the short axis diameter. Normal urinary bladder. Stable adenopathy of the right more than left inguinal regions. Enlarged lymph nodes along the bilateral iliac chains also likely present although evaluation limited given lack of contrast. Multiple sclerotic lesions of the lumbar vertebral bodies and pelvis, not substantially changed. CT/Abdomen/Pelvis without Cont IMPRESSION: 1. Overall favorable change. Mildly lesser perigastric fluid since prior study, although exam limited without IV contrast. 2. Stable omental stranding/study suggesting peritoneal carcinomatosis. Mild ascites in the right lower abdomen. 3. Suspicious left adrenal gland nodule with punctate calcifications, likely metastasis. 4. Gastrostomy tube. 5. Left larger than right pleural effusions with bilateral lower lobe atelectasis. 6. Persistent wall thickening of the right colon. No bowel obstruction. 7. Osteoblastic metastasis. 8. Bilateral inguinal/iliac chain adenopathy. Electronically Signed: Riccardo Green MD ([place]) at 10:15 EDT ,
[2022-01-04] MEDS: Potassium Chloride 20mEq/100mL 20 MEQ/100 ML IV.SOLN. 50 MEQ IV BOLUS (09:22)
--- NOTE | 2022-01-04 09:42 | ED.RN ---
pt provider do not straight cath pt.
[2022-01-04 11:20] LABS: Magnesium 2.8 mg/dL (1.6-2.6)
--- NOTE | 2022-01-04 11:30 | HP.PCM.HOS_ITS ---
HPI - General General Date of Admission: 01/04/22 Date of Service: 01/04/22 Chief Complaint: Intractable vomiting- 1 day HPI Narrative YENY CERON, is a 51 F who presents with the above. Patient was discharged on to after a prolonged hospital course where patient had partial bowel obstruction status post GJ tube that appeared to have misplaced. Patient was discharged home on TPN and full liquid diet which she appeared to be tolerating before discharge. She had a bowel movement prior to discharge. Patient stated that when she go home, she apparently was well for a day. She has been collecting her PEJ tube to her back and emptying her bowels twice a day. Last night, she had severe bouts of nausea with intractable vomiting. She stated that she has been passing gas but has not had a bowel movement. She also has been very weak and has been dependent on family. Her mom who is her primary caregiver stated that she cannot take care of her anymore. Patient asked her to bring her to the hospital. In the ED, she was found to be tachycardic, blood pressure was 124/84. Admitting blood work showed WBC count of 20.6, hemoglobin was 11.9. Sodium was 131, potassium 2.9, BUN 102, creatinine 2.05, magnesium is 2.8. CT of the abdomen and pelvis showed moderate left pleural effusion which was smaller than previous CAT scan. There was fluid adjacent to the stomach, omental stranding suggesting peritoneal carcinomatosis, mild ascites in right lower abdomen, persistent thickening of the right colon extending to the hepatic flexure persists. [facility] Medical History Anemia Anxiety and depression At high risk for deep venous thrombosis At high risk for venous thromboembolism (VTE) Back pain Chronic cough Colon cancer Dehydration DVT (deep venous thrombosis) Elevated serum creatinine Encounter for adjustment and management of vascular access device Encounter for chemotherapy management Former tobacco use GERD (gastroesophageal reflux disease) Heart burn History of steroid therapy Hypokalemia Hypomagnesemia Left leg pain Malignant ascites Migraine headache Morbid obesity Nausea & vomiting Oral candidiasis Post-menopausal Shortness of breath on exertion Wears dentures Wears glasses Weight loss Home Medications buspirone 10 mg PO BID 06/13/21 [History Last Taken 01/04/22 09:00] escitalopram oxalate 20 mg PO DAILY 06/13/21 [History Last Taken 01/04/22 09:00] prochlorperazine maleate 5 mg tablet 5 mg PO TID PRN #30 tab 08/01/21 [Rx Last Taken Unknown] methadone 5 mg tablet 5 mg PO BID tab 10/25/21 [History Last Taken 01/04/22 09:00] scopolamine base 1 mg over 3 days transdermal patch 1 patch TRANSDERMAL Q3D PRN #10 ea 11/04/21 [Rx Last Taken 01/03/22 21:00] apixaban [Eliquis] 5 mg PO BID 30 Days #60 tab 01/02/22 [Rx Last Taken 01/04/22 09:00] bisacodyl [Dulcolax (bisacodyl)] 10 mg [place] DAILY PRN 30 Days #30 ea 01/02/22 [Rx Last Taken 01/04/22 09:00] furosemide [Lasix] 40 mg PO BID 30 Days #60 tab 01/02/22 [Rx Last Taken 01/04/22 09:00] lorazepam 0.5 mg PO Q4H PRN PRN #0 tab 01/02/22 [Rx Last Taken 01/04/22 09:00] morphine concentrate 5 mg PO Q2H PRN PRN 01/04/22 [History Last Taken 01/04/22 09:00] omeprazole 40 mg PO DAILY 01/04/22 [History Last Taken 01/04/22 09:00] polyethylene glycol 3350 17 g PO BID 01/04/22 [History Last Taken 01/04/22 09:00] sennosides [Senna Laxative] 8.6 mg PO BID 01/04/22 [History Last Taken 01/04/22 09:00] Allergy/AdvReac Type Severity Reaction Status Date / Time No Known Allergies Allergy Verified 01/04/22 07:34 Family History Father Diabetes Mother Hypertension Brother Hypertension Surgical History History of cholecystectomy (~06/2021) S/P section S/P rotator cuff repair Social History household members: family Smoking Status: Former smoker how long ago did patient quit smoking: Quit 2 years prior, smoked 1/2 ppd since she was a teenager until quitting. alcohol intake: never substance use type: does not use ROS ROS Narrative Constitutional: Reports: Malaise, Weakness, Fatigue, Anorexia, Denies: Chills, Fever, Night Sweats, Weight Change Eyes: Denies: Blurred vision, Cataracts, Conjunctivae Inflammation, Pain, Redness, Vision Change HEENT: Denies: Difficulty Hearing, Difficulty Swallowing, Head Aches, Hearing Changes, Sinus Congestion, Sinus Drainage Cardiovascular: Denies: Chest Pain, Orthopnea, Palpitations Respiratory: Denies: Cough, Shortness of breath at rest, Sputum production Gastrointestinal: SEe HPI Genitourinary: Denies: Dysuria Musculoskeletal: Denies: Joint Pain, Joint stiffness, Joint swelling, Joint Tenderness Skin: Denies: Rash, Wounds Neurological: Denies: Numbness, Tingling, Focal weakness Vital Signs Vital Signs Vital Signs: 01/04/22 07:32 01/04/22 07:56 01/04/22 07:59 Temperature 97.3 F L Temperature Source Temporal Pulse Rate 125 H Respiratory Rate 16 Respiratory Effort Normal Blood Pressure 124/84 H 110/98 H Blood Pressure Mean 97 102 Pulse Ox 96 92 Oxygen Delivery Method Room Air Room Air 01/04/22 08:01 01/04/22 10:21 01/04/22 10:50 Temperature 98.9 F Temperature Source Temporal Pulse Rate 136 H 130 H Respiratory Rate 27 H Respiratory Effort Blood Pressure 103/85 H 103/85 H Blood Pressure Mean 91 91 Pulse Ox 93 Oxygen Delivery Method Room Air Weight Weight: 80 kg Body Mass Index (BMI) 30.2 Physical Exam Narrative Physical exam: General: Alert, Oriented x3, comfortable, cachectic, on 2 L of oxygen HEENT: Atraumatic Oral: Moist Mucosa Neck: Supple Lungs: Diminished to auscultation Cardiovascular: HS I+II, regular, no murmurs Abdomen: Dressing at the gastrostomy tube site appears intact, colostomy tube attached to the bag and draining greenish fluid, bowel sounds present, soft, non tender Extremities: No edema Skin: No rashes, No breakdown Neurological: Grossly intact Psych/Mental Status: Appropriate Results Lab / Micro Data Result Diagrams: 01/04/22 08:10 01/04/22 08:10 Labs: Laboratory Results - last 24 hr 01/04/22 08:10: WBC 20.6 H, RBC 4.20, Hgb 11.9 L, Hct 35.8 L, MCV 85.2, MCH 28.3, MCHC 33.2, RDW Std Deviation 50.9 H, RDW Coeff of Mohsen 16.6 H, Plt Count 399, MPV 11.0, Immature Gran % (Auto) 2.200 H, Neut % (Auto) 87.5 H, Lymph % (Auto) 2.6 L, [place] % (Auto) 7.1, Eos % (Auto) 0.4, Baso % (Auto) 0.2, Absolute Neuts (auto) 18.1 H, Absolute Lymphs (auto) 0.53 L, Nucleated RBC % 0, Differential Comment COMMENT 01/04/22 08:10: Sodium 131 L, Potassium 2.9 L, Chloride 85 L, Carbon Dioxide 29.0, Anion Gap 17 H, BUN 102 H*, Creatinine 2.05 H, Estim Creat Clear Calc 28.04, Est GFR (MDRD) Af Amer 33 L, Est GFR (MDRD) Non-Af 27 L, BUN/Creatinine Ratio 49.8 H, Glucose 191 H, Calcium 9.9, Total Bilirubin 0.40, Direct Bilirubin 0.23, AST 31, ALT 52, Alkaline Phosphatase 522 H, Total Protein 8.7 H, Albumin 2.3 L, Globulin 6.4 H 01/04/22 08:10: Magnesium 2.8 H Radiology Impression Abdomen/Pelvis CT 01/04/22 08:52 IMPRESSION: 1. Overall favorable change. Mildly lesser perigastric fluid since prior study, although exam limited without IV contrast. 2. Stable omental stranding/study suggesting peritoneal carcinomatosis. Mild ascites in the right lower abdomen. 3. Suspicious left adrenal gland nodule with punctate calcifications, likely metastasis. 4. Gastrostomy tube. 5. Left larger than right pleural effusions with bilateral lower lobe atelectasis. 6. Persistent wall thickening of the right colon. No bowel obstruction. 7. Osteoblastic metastasis. 8. Bilateral inguinal/iliac chain adenopathy. Electronically Signed: Riccardo Green MD ([place]) at 10:15 EDT , Assessment & Plan Assessment/Plan (1) Hypokalemia: (2) Acute renal failure: QUALIFIERS: Acute renal failure type: unspecified Qualified Code(s): N17.9 - Acute kidney failure, unspecified (3) Leukocytosis: QUALIFIERS: Leukocytosis type: unspecified Qualified Code(s): D72.829 - Elevated white blood cell count, unspecified (4) Gastrostomy complication: (5) Pleural effusion: (6) Severe protein-calorie malnutrition: (7) Colon cancer: QUALIFIERS: Colon location: ascending Qualified Code(s): C18.2 - Malignant neoplasm of ascending colon (8) Bowel obstruction: QUALIFIERS: Intestinal obstruction extent: partial Intestinal obstruction type: unspecified Qualified Code(s): K56.600 - Partial intestinal obstruction, unspecified as to cause PLAN: 1. Severe hypokalemia, admitting potassium was 2.9, magnesium is 2.8 Replaced, recheck in am 2. CHANDLER, pre-renal likely secondary to acute GI losses Patient was discharged with creatinine of 0.71, currently now with creatinine of 2.05 Continue IV fluids, recheck in a.m. 3. Partial bowel obstruction secondary to malfunctioning GJ tube Patient was supposed to follow-up in the outpatient in [facility] that she declined to make an appointment thinking that she will be okay. GI consulted. 4. Moderate-sized left pleural effusion, status post thoracocentesis on 01/02/22 5. 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 Stage IV colon CA with omental mets 7. History of DVT/PE: Abi on hold for pending procedure 8. Acute on chronic debility, unable to care for her, PT/OT to evaluate and treat 9. DVT PPx- on Lovenox SC Charges/Coding Visit Charges Inpatient E&M: 41919 Subs Hosp L2
[2022-01-04 14:14] LABS: Bacteria 0 SEEN /hpf (None Seen); Mucous, Urine 0 SEEN /hpf (<or=2+); Red Blood Cells-Urine 0 SEEN /hpf (0-5)
[2022-01-04 14:18] LABS: Color, Urine Yellow (Yellow); Glucose, Dipstick Normal (Normal); Ketone-Dipstick Negative (Negative); Leukocyte Esterase-Dipstick 25 /ul (Negative); Nitrite-Dipstick Negative (Negative); Occult Blood-Urine Negative /ul (Negative); Protein-Dipstick 30 mg/dl (Negative); Specific Gravity, Urine 1.025 (1.002-1.030); Urine Bilirubin Dipstick Negative (Negative); Urine Clarity Clear (Clear); Urine Urobilinogen Normal (Normal)
[2022-01-04 14:25] LABS: Squamous Epithelial Cells - UA 0-5 SEEN /hpf (5-10); White Blood Cells 0-5 SEEN /hpf (0-5)
[2022-01-04] MEDS: Potassium Chloride 10mEq/100mL 10 MEQ/100 ML IV.SOLN. 100 MEQ IV BOLUS ×4 (15:18→18:42)
--- NOTE | 2022-01-04 16:33 | CPS ---
patient knows how to do
[2022-01-04] MEDS: Fat Emulsions 20% 250 ML IV (16:52)
[2022-01-04] MEDS: TPN - Clinimix E 8%-14% Soln 2,000 ML with Multivitamins 10 ML, Trace Elements 1 ML, Fo... 84 ML IV (16:52)
[2022-01-04] MEDS: 0.9% Saline Lock 10 ML Syringe IV (16:58)
[2022-01-04] MEDS: LORazepam 0.5 MG Tablet PO (18:43)
[2022-01-04] MEDS: morphine (oral solution) 10MG/0.5ML Syringe 5 MG PO ×2 (18:43→22:25)
--- NOTE | 2022-01-04 20:00 | CON.PCM_ITS ---
Assessment & Plan Assessment/Plan (1) Leukocytosis: QUALIFIERS: Leukocytosis type: unspecified Qualified Code(s): D72.829 - Elevated white blood cell count, unspecified PLAN: Leukocytosis is likely reactive. I believe is secondary to bowel obstruction associated with high outputs from her gastrostomy tube. I suspect it also secondary to a small bowel obstruction. (2) Severe protein-calorie malnutrition: PLAN: She is on TPN and we will continue that on his visit. (3) Bowel obstruction: QUALIFIERS: Intestinal obstruction type: unspecified Intestinal obstruction extent: partial Qualified Code(s): K56.600 - Partial intestinal obstruction, unspecified as to cause PLAN: Recommend AN attempted GJ tube with placement of the J-tube past obstruction. HPI Consult Data Date of Consult: 01/04/22 HPI Narrative HPI Narrative: YENY CERON, is a 51 F who presents with abdominal pain and vomiting. She had a colonoscopy on 07/13/2021. She Was found to have congested mucosa and polyps in the cecum extending into the hepatic flexure. Pathology showed invasive adenocarcinoma in cecum, ascending colon and hepatic flexure. She had persistent abdominal pain, CT abdomen on 07/17/2021 showed mesenteric nodules with ascites. Paracentesis was attempted on 07/21/2021 showed malignant cells, favor adenocarcinoma of colonic origin. CEA on 07/19/2021 was 6.3. Was found to have SOB with bilateral pleural effusion. Thoracentesis on 07/27/2021 showed malignant cells, favor adenocarcin adrian of colonic origin. She was diagnosed with Colon cancer stage IV(cTx cNx M1c) started chemotherapy with FOLFIRINOX on 07/28/2021. Cycle 2 due 08/10/2021 held due to neutropenia. Given 08/17/21, 5FU bolus and leucovorin omitted with decrease in Irinotecan. Oxaliplatin was decrease with 3rd cycle. Presented to [facility] ED on 09/19/21 with c/o lower rib pain bilat, CTA showed bilat pleural effusions but negative for PE. Given rx for prednisone and Mucinex. Rib pain returned one day after completing course of steroids. CT C/A/P with contrast obtained on 09/22/21 for restaging demonstrated partial response with resolution of R pleural effusion, decrease in L pleural effusion, decrease in ascites and new finding of focal wedge-shaped infiltrate in the peripheral aspect of the lingular segment of the left upper lung. While waiting to review these results with medical oncology, she presented to [facility] ED on 09/25/21 with L sided chest pain and was given rx for Levaquin. Completed Levaquin 09/30/21. She has been having worsening abdominal distention associated with nausea and vomiting. She had biochemical analysis that showed worsening hypokalemia, metabolic alkalosis ,hypoalbuminemia, dehydration and protein calorie malnutrition. She got a CT scan abdomen pelvis that showed a bowel obstruction. She had a decompressive PEG tube placed by myself. She had an attempted J-tube placement by IR. That J-tube fell out. She had a replaced PEG tube placed back by general surgery approximately 5 days ago. [facility] Medical History Anemia Anxiety and depression At high risk for deep venous thrombosis At high risk for venous thromboembolism (VTE) Back pain Chronic cough Colon cancer Dehydration DVT (deep venous thrombosis) Elevated serum creatinine Encounter for adjustment and management of vascular access device Encounter for chemotherapy management Former tobacco use GERD (gastroesophageal reflux disease) Heart burn History of steroid therapy Hypokalemia Hypomagnesemia Left leg pain Malignant ascites Migraine headache Morbid obesity Nausea & vomiting Oral candidiasis Post-menopausal Shortness of breath on exertion Wears dentures Wears glasses Weight loss Home Medications buspirone 10 mg PO BID 06/13/21 [History Last Taken 01/04/22 09:00] escitalopram oxalate 20 mg PO DAILY 06/13/21 [History Last Taken 01/04/22 09:00] prochlorperazine maleate 5 mg tablet 5 mg PO TID PRN #30 tab 08/01/21 [Rx Last Taken Unknown] methadone 5 mg tablet 5 mg PO BID tab 10/25/21 [History Last Taken 01/04/22 09:00] scopolamine base 1 mg over 3 days transdermal patch 1 patch TRANSDERMAL Q3D PRN #10 ea 11/04/21 [Rx Last Taken 01/03/22 21:00] apixaban [Eliquis] 5 mg PO BID 30 Days #60 tab 01/02/22 [Rx Last Taken 01/04/22 09:00] bisacodyl [Dulcolax (bisacodyl)] 10 mg [place] DAILY PRN 30 Days #30 ea 01/02/22 [Rx Last Taken 01/04/22 09:00] furosemide [Lasix] 40 mg PO BID 30 Days #60 tab 01/02/22 [Rx Last Taken 01/04/22 09:00] lorazepam 0.5 mg PO Q4H PRN PRN #0 tab 01/02/22 [Rx Last Taken 01/04/22 09:00] morphine concentrate 5 mg PO Q2H PRN PRN 01/04/22 [History Last Taken 01/04/22 09:00] omeprazole 40 mg PO DAILY 01/04/22 [History Last Taken 01/04/22 09:00] polyethylene glycol 3350 17 g PO BID 01/04/22 [History Last Taken 01/04/22 09:00] sennosides [Senna Laxative] 8.6 mg PO BID 01/04/22 [History Last Taken 01/04/22 09:00] Allergy/AdvReac Type Severity Reaction Status Date / Time No Known Allergies Allergy Verified 01/04/22 07:34 Family History Father Diabetes Mother Hypertension Brother Hypertension Surgical History History of cholecystectomy (~06/2021) S/P section S/P rotator cuff repair Social History household members: family Smoking Status: Former smoker how long ago did patient quit smoking: Quit 2 years prior, smoked 1/2 ppd since she was a teenager until quitting. alcohol intake: never substance use type: does not use ROS Gastrointestinal Gastrointestinal: Reports abdominal pain and bloating Physical Exam Const alert General Appearance: cooperative Orientation / Consciousness: oriented to person HEENT hearing grossly normal bilaterally Head and Scalp: normal to inspection Face and Sinus: face symmetric Nose: external nose normal Mouth: oral and palatal mucosa normal Eyes conjunctivae normal General Eye: normal appearance of both eyes Neck full ROM General: normal visual inspection Lymph Lymphatic: no lymphadenopathy noted Chest inspection of chest normal and palpation of chest normal Chest: symmetrical chest wall rise Resp normal respiratory effort Effort and Inspection: able to speak in complete sentences Cardio regular rate GI non-distended Percussion: normal to percussion Rectal Exam: deferred Neuro Speech: speech normal Gait (Neuro): normal gait Medical Records Data Medical Nutrition Assessment Dietitian: Malnutrition Criteria Met Start: 01/04/22 13:47 Freq: Status: Active Protocol: Document 01/04/22 13:48 AG (Rec: 01/04/22 15:48 AG [id number]) Nutrition Malnutrition Evidence of Malnutrition Exists Yes Malnutrition (severe): Chronic Evidenced By Suboptimal Energy Intake ( Severe),Weight Loss (Severe) Clinical Problem Chronic Disease or Condition Related Malnutrition Etiology severe, chronic malnutrition r /t GI dysfunction from colon cancer Signs/Symptoms as evidenced by estimated PO intake meeting <75% of estimated energy needs >3 months; unintentional 59.2#/24 % wt loss x5 months Status Active Problem Recommendation Dietitian Recommendations/Changes 1) Consulted by Dr. Monet to continue TPN. Will order 2L 8AA%/14% dextrose w/ 250mL 20% lipid solution to provide 2093 calories, 160 g protein. Famotidine in TPN per provider order. 2) Daily wts, monitoring of electrolytes. Lab / Micro Data Result Diagrams: 01/04/22 08:10 01/04/22 08:10 Labs: Laboratory Results - last 24 hr 01/04/22 08:10: WBC 20.6 H, RBC 4.20, Hgb 11.9 L, Hct 35.8 L, MCV 85.2, MCH 28.3, MCHC 33.2, RDW Std Deviation 50.9 H, RDW Coeff of Mohsen 16.6 H, Plt Count 399, MPV 11.0, Immature Gran % (Auto) 2.200 H, Neut % (Auto) 87.5 H, Lymph % (Auto) 2.6 L, [place] % (Auto) 7.1, Eos % (Auto) 0.4, Baso % (Auto) 0.2, Absolute Neuts (auto) 18.1 H, Absolute Lymphs (auto) 0.53 L, Nucleated RBC % 0, Differential Comment COMMENT 01/04/22 08:10: Sodium 131 L, Potassium 2.9 L, Chloride 85 L, Carbon Dioxide 29.0, Anion Gap 17 H, BUN 102 H*, Creatinine 2.05 H, Estim Creat Clear Calc 28.04, Est GFR (MDRD) Af Amer 33 L, Est GFR (MDRD) Non-Af 27 L, BUN/Creatinine Ratio 49.8 H, Glucose 191 H, Calcium 9.9, Total Bilirubin 0.40, Direct Bilirubin 0.23, AST 31, ALT 52, Alkaline Phosphatase 522 H, Total Protein 8.7 H, Albumin 2.3 L, Globulin 6.4 H 01/04/22 08:10: Magnesium 2.8 H 01/04/22 13:55: Urine Color Yellow, Urine Clarity Clear, Urine pH 5.0, Ur Specific Chaplin 1.025, Urine Protein 30 H, Urine Glucose (UA) Normal, Urine Ketones Negative, Urine Occult Blood Negative, Urine Nitrite Negative, Urine Bilirubin Negative, Urine Urobilinogen Normal, Ur Leukocyte Esterase 25 H, Urine RBC 0 SEEN, Urine WBC 0-5 SEEN, Ur Squamous Epith Cells 0-5 SEEN, Urine Bacteria 0 SEEN, Urine Mucus 0 SEEN Radiology Impression Abdomen/Pelvis CT 01/04/22 08:52 IMPRESSION: 1. Overall favorable change. Mildly lesser perigastric fluid since prior study, although exam limited without IV contrast. 2. Stable omental stranding/study suggesting peritoneal carcinomatosis. Mild ascites in the right lower abdomen. 3. Suspicious left adrenal gland nodule with punctate calcifications, likely metastasis. 4. Gastrostomy tube. 5. Left larger than right pleural effusions with bilateral lower lobe atelectasis. 6. Persistent wall thickening of the right colon. No bowel obstruction. 7. Osteoblastic metastasis. 8. Bilateral inguinal/iliac chain adenopathy. Electronically Signed: Rcicardo Green MD ([place]) at 10:15 EDT Reading Location ID and State: [address] [place] [address] , Service support , Charges/Coding Visit Charges Inpatient E&M: 00284 Init Hosp L3
[2022-01-04] MEDS: 0.9% Normal Saline 1,000 ML 150 ML IV (20:22)
[2022-01-04] MEDS: Enoxaparin 40 MG/0.4 ML Syringe SC (21:39)
[2022-01-05] VITALS (19 sets, daily range): BP systolic 113–130; BP diastolic 70–95; PULSE 109–126; RESP 14–20; TEMP 36.1–37.1; O2SAT 92–98
[2022-01-05] MEDS: LORazepam 0.5 MG Tablet PO ×3 (03:00→20:04)
[2022-01-05] MEDS: morphine (oral solution) 10MG/0.5ML Syringe 5 MG PO ×2 (03:00→06:09)
[2022-01-05] MEDS: 0.9% Normal Saline 1,000 ML 150 ML IV ×3 (03:00→19:03)
[2022-01-05] MEDS: 0.9% Saline Lock 10 ML Syringe IV ×5 (03:32→22:28)
[2022-01-05] MEDS: proCHLORPERazine 10 MG/2 ML Vial 5 MG IV ×3 (03:32→22:26)
--- NOTE | 2022-01-05 05:55 | EKG12_ITS ---
Test Reason : Blood Pressure : / mmHG Vent. Rate : 116 BPM Atrial Rate : 116 BPM P-R Int : 132 ms QRS Dur : 084 ms QT Int : 324 ms P-R-T Axes : 032 053 042 degrees QTc Int : 450 ms Sinus tachycardia Otherwise normal ECG Confirmed by MARKO TRENT, COLT ([id number]), newspaper editor managing JONNY LAN ([id number]) on 01/06/2022 10:34:19 AM Referred By: Confirmed By:COLT ZHU MD
[2022-01-05 06:04] LABS: Basophil# 0.05 X10^3/uL; Basophil% 0.3 % (0-1); Eosinophils% 3.2 % (0-5); Hematocrit 31.7 % (37-47); Hemoglobin 10.1 g/dL (12.0-15.0); Lymphocyte % 3.2 % (19-41); Mean Corp Hgb Conc 31.9 g/dL (32-36); Mean Corpuscular Hgb 28.1 pg (27.0-32.0); Mean Corpuscular Volume 88.3 fL (81-99); Mean Platelet Vol. 10.9 fl (6.2-12.0); Monocyte# 0.89 X10^3/uL; Monocyte% 5.8 % (0-10); NRBC Flagged by Analyzer 0.1 % (0-5); Neutrophil # 13.01 X10^3/uL (2.7-7.7); Neutrophil % 84.5 % (47-70); POSITIVE DIFFERENTIAL YES; Platelet Count 290 K/mm3 (150-450); RBC Distribution Width CV 16.6 % (11.6-14.6); RBC Distribution Width SD 53.5 fl (35.1-43.9); Red Blood Count 3.59 M/mm3 (4.2-5.4); White Blood Count 15.4 K/mm3 (4.4-11.0)
[2022-01-05 06:06] LABS: Differential Indicated SCAN CRITERIA MET
[2022-01-05 06:41] LABS: ALB/GLOB Ratio 0.3 RATIO (0.9-2.4); AST(SGOT) 29 U/L (15-37); Alanine Aminotransfer ALT/SGPT 36 U/L (13-56); Albumin, Serum 1.7 g/dL (3.2-5.0); Alkaline Phosphatase 383 U/L (45-117); Anion Gap 10 (5-15); BUN 100 mg/dL (7-18); BUN/Creat Ratio 87.7 RATIO (10-20); Calcium,Total 8.5 mg/dL (8.5-10.1); Chloride 97 mmol/L (98-107); Creatinine, Serum 1.14 mg/dL (0.55-1.02); Differential Comment SCANNED; EST Glomerular Filtration Rate 53 mL/min (>60); Est Glom Filt Rate - Afr Amer 65 mL/min (>60); Estimated Creatinine Clearance 50.41 ml/min; Globulin 4.9 g/dL (2.2-4.2); Glucose 122 mg/dL (74-106); Magnesium 2.5 mg/dL (1.6-2.6); Potassium 3.3 mmol/L (3.5-5.1); Protein, Total 6.6 g/dL (6.4-8.2); Sodium Level 131 mmol/L (136-145); Triglycerides 248 mg/dL
[2022-01-05 08:20] LABS: Phosphorus 4.1 mg/dL (2.5-4.9)
[2022-01-05] MEDS: Potassium Chloride 10mEq/100mL 10 MEQ/100 ML IV.SOLN. 100 MEQ IV BOLUS ×4 (09:24→12:44)
[2022-01-05] MEDS: Escitalopram Oxalate 20 MG Tablet PO (09:38)
--- NOTE | 2022-01-05 11:20 | CASEMGMT ---
Readmission chart review: 12/21-01/02/22 Constipation 01/04/22-current CHANDLER/hypokalemia Pt presented to [facility] ED on 12/20/21 with c/o abd pain, constipation, N/V and pt currently getting palliative chemo for metastatic adenocarcinoma of the colon with malignant ascites, mesenteric nodules disease, pathologically proven disease in thoracic fluid, stage IV per oncology note . CT abdomen pelvis with progressive thickening of the ascending colon, omental metastasis, stable sclerotic metastasis. Pt admitted to [facility] for Ab pain, obstipation w/ N/V-r/o obstruction. GI consulted and pt had EGD performed with Dr. Morfin on 12/21/21 during which she had an NG tube placed but pt continued with abd pain as well as large amount of bilious fluid from NGT. Pt then removed NGT on 12/22/21 and refused to have it replaced. Dr. Morfin then planned for palliative PEG tube to help with decompression and nutrition consulted for TPN. Pt had another EGD on 12/23/21 for PEG placement and fluid aspiration was performed. Oncology was consulted during this visit and saw pt on 12/24/21, 12/27/21, and 12/29/21. Due to continued output of bilious fluid from PEG, general surgeon was also consulted. Pt had small bowel follow thru that indicated small bowel obstruction w/ transition point in the proximal to mid jejunum. Plan was to convert PEG to GJ tube and pt to be sent home on TPN with [facility]. Pt very anxious to go home to be with her son. Pt had PEG tube exchanged for GJ tube on 12/30/21 but then the GJ tube fell out. Pt had a PEG replaced by surgeon on 12/31/21 and he recommends LEMUS tube placement if feeds need to get into small intestine. Pt also with bilat pleural effusions left greater than right and plan to have thoracentesis on 01/02/22. Pt still very upset and anxious to leave hospital. Pt seen by CM and SW during stay. Pt set up with TPN and [facility] on 01/02/22 and plans to discharge later that day and for TPN to be delivered 01/03/22 and started by [facility] in the am. Pt will have to f/u with [facility] for GJ tube placement and order was faxed. Pt was discharged 01/02/22. [facility] out to home next am for SOC and TPN did not arrive. Per [facility] they changed TPN order and needed new script signed. Script was signed and TPN to be delivered by 1900 on 01/03/22 and started by [facility]. Pt returned to [facility] ED for continued N/V and unable to care for self at home. Pt admitted to PCU for CHANDLER/hypokalemia. Pt had PEJ tube placed today by GI with placement of the J-tube past obstruction. Pt is already active with [facility]. CM to follow for further discharge planning/needs. SSttono OLIVER CM
--- NOTE | 2022-01-05 12:03 | PCM.PN.HOSP ---
Subjective Subjective Follow-up on CHANDLER/severe hypokalemia/GJ tube malfunction: Patient was seen and examined. She had episode of vomiting after drinking lots of water yesterday. She was supposed to be on ice chips and sips of water. She had a bowel movement today. She has been passing lots of gas. She is going for EGD/PEJ tube placement. Objective Data Objective Data Vital Signs: Vital Signs Temp Pulse Resp BP Pulse Ox 97.8 F 109 H 16 115/83 H 97 01/05/22 09:03 01/05/22 11:38 01/05/22 09:03 01/05/22 09:03 01/05/22 09:03 Oxygen Flow Rate (L/min) 2 Oxygen Delivery Method Nasal Cannula Weight: 85 kg Body Mass Index (BMI) 32.1 Intake & Output: Intake and Output for Last 24 Hours 01/03/22 01/04/22 01/05/22 23:59 23:59 23:59 Intake Total 186 / 1979 2670.83 / 2670.83 Output Total 1999 / 2749 925 / 925 Balance -140 / -770 1745.83 / 1745.83 Medical Nutrition Assessment Dietitian: Malnutrition Criteria Met Start: 01/04/22 13:47 Freq: Status: Active Protocol: Document 01/04/22 13:48 AG (Rec: 01/04/22 15:48 AG [id number]) Nutrition Malnutrition Evidence of Malnutrition Exists Yes Malnutrition (severe): Chronic Evidenced By Suboptimal Energy Intake ( Severe),Weight Loss (Severe) Clinical Problem Chronic Disease or Condition Related Malnutrition Etiology severe, chronic malnutrition r /t GI dysfunction from colon cancer Signs/Symptoms as evidenced by estimated PO intake meeting <75% of estimated energy needs >3 months; unintentional 59.2#/24 % wt loss x5 months Status Active Problem Recommendation Dietitian Recommendations/Changes 1) Consulted by Dr. Monet to continue TPN. Will order 2L 8AA%/14% dextrose w/ 250mL 20% lipid solution to provide 2093 calories, 160 g protein. Famotidine in TPN per provider order. 2) Daily wts, monitoring of electrolytes. Lab / Micro Data Result Diagrams: 01/05/22 05:19 01/05/22 05:19 Labs: Laboratory Results - last 24 hr 01/04/22 13:55: Urine Color Yellow, Urine Clarity Clear, Urine pH 5.0, Ur Specific [place] 1.025, Urine Protein 30 H, Urine Glucose (UA) Normal, Urine Ketones Negative, Urine Occult Blood Negative, Urine Nitrite Negative, Urine Bilirubin Negative, Urine Urobilinogen Normal, Ur Leukocyte Esterase 25 H, Urine RBC 0 SEEN, Urine WBC 0-5 SEEN, Ur Squamous Epith Cells 0-5 SEEN, Urine Bacteria 0 SEEN, Urine Mucus 0 SEEN 01/05/22 05:19: WBC 15.4 H, RBC 3.59 L, Hgb 10.1 L, Hct 31.7 L, MCV 88.3, MCH 28.1, MCHC 31.9 L, RDW Std Deviation 53.5 H, RDW Coeff of Mohsen 16.6 H, Plt Count 290, MPV 10.9, Immature Gran % (Auto) 3.000 H, Neut % (Auto) 84.5 H, Lymph % (Auto) 3.2 L, Ada % (Auto) 5.8, Eos % (Auto) 3.2, Baso % (Auto) 0.3, Absolute Neuts (auto) 13.0 H, Absolute Lymphs (auto) 0.50 L, Nucleated RBC % 0.1, Differential Comment SCANNED 01/05/22 05:19: Sodium 131 L, Potassium 3.3 L, Chloride 97 L, Carbon Dioxide 24.0, Anion Gap 10, BUN 100 H, Creatinine 1.14 H, Estim Creat Clear Calc 50.41, Est GFR (MDRD) Af Amer 65, Est GFR (MDRD) Non-Af 53 L, BUN/Creatinine Ratio 87.7 H, Glucose 122 H, Calcium 8.5, Magnesium 2.5, Total Bilirubin 0.30, AST 29, ALT 36, Alkaline Phosphatase 383 H, Total Protein 6.6, Albumin 1.7 L, Globulin 4.9 H, Albumin/Globulin Ratio 0.3 L, Triglycerides 248 H 01/05/22 05:19: Phosphorus 4.1 Physical Exam Narrative Physical exam: General: Alert, Oriented x3, comfortable, cachectic, on 2 L of oxygen HEENT: Atraumatic Oral: Moist Mucosa Neck: Supple Lungs: Diminished to auscultation Cardiovascular: HS I+II, regular, no murmurs Abdomen: Dressing at the gastrostomy tube site appears intact, colostomy tube attached to the bag and draining greenish fluid, bowel sounds present, soft, non tender Extremities: No edema Skin: No rashes, No breakdown Neurological: Grossly intact Psych/Mental Status: Appropriate Assessment & Plan Assessment/Plan (1) Hypokalemia: (2) Acute renal failure: QUALIFIERS: Acute renal failure type: unspecified Qualified Code(s): N17.9 - Acute kidney failure, unspecified (3) Leukocytosis: QUALIFIERS: Leukocytosis type: unspecified Qualified Code(s): D72.829 - Elevated white blood cell count, unspecified (4) Gastrostomy complication: (5) Pleural effusion: (6) Severe protein-calorie malnutrition: (7) Colon cancer: QUALIFIERS: Colon location: ascending Qualified Code(s): C18.2 - Malignant neoplasm of ascending colon (8) Bowel obstruction: QUALIFIERS: Intestinal obstruction type: unspecified Intestinal obstruction extent: partial Qualified Code(s): K56.600 - Partial intestinal obstruction, unspecified as to cause PLAN: 1. Severe hypokalemia, improved K is 3.3, will replace, recheck in am 2. CHANDLER, pre-renal likely secondary to acute GI losses, improved Patient was discharged with creatinine of 0.71,admitted with creatinine of 2.05 Cr today is 1.14 Continue IV fluids, recheck in a.m. 3. Partial bowel obstruction secondary to malfunctioning GJ tube, going for PEJ tube placement GI consulted. 4. Moderate-sized left pleural effusion, status post thoracocentesis on 01/02/22 Fluid analysis was exudative, malignant. Pathology of fluid shows malignant cells consistent with metastatic adenocarcinoma. 5. Severe protein calorie malnutrition, continue TPN, assistant chief of police following 6. Stage IV colon CA with omental mets 7. History of DVT/PE: Eliquis on hold for pending procedure 8. Acute on chronic debility, unable to care for her, PT/OT to evaluate and treat 9. DVT PPx- on Lovenox SC Charges/Coding Visit Charges Inpatient E&M: 72740 Subs Hosp L2
--- NOTE | 2022-01-05 18:19 | OP.EGD_ITS ---
Patient Name: Mónica James Procedure Date: 01/05/2022 2:17 PM Date of : 1970 Age: 51 Procedure: Upper GI endoscopy Indications: Epigastric abdominal pain, Replace PEG-J tube Providers: Cyril Morfin DO Medicines: Monitored Anesthesia Care Patient Profile: This is a 51 year old female. Complications: No immediate complications. Procedure: Pre-Anesthesia Assessment: - Prior to the procedure, a History and Physical was performed, and patient medications and allergies were reviewed. The risks and benefits of the procedure and the sedation options and risks were discussed with the patient. All questions were answered and informed consent was obtained. Patient identification and proposed procedure were verified by the physician in the pre-procedure area. Mental Status Examination: alert and oriented. Airway Examination: normal oropharyngeal airway and neck mobility. Respiratory Examination: clear to auscultation. CV Examination: normal. Prophylactic Antibiotics: The patient does not require prophylactic antibiotics. Prior Anticoagulants: The patient has taken no previous anticoagulant or antiplatelet agents. ASA Grade Assessment: II - A patient with mild systemic disease. After reviewing the risks and benefits, the patient was deemed in satisfactory condition to undergo the procedure. The anesthesia plan was to use moderate sedation / analgesia (conscious sedation). Immediately prior to administration of medications, the patient was re-assessed for adequacy to receive sedatives. The heart rate, respiratory rate, oxygen saturations, blood pressure, adequacy of pulmonary ventilation, and response to care were monitored throughout the procedure. The physical status of the patient was re-assessed after the procedure. After obtaining informed consent, the endoscope was passed under direct vision. Throughout the procedure, the patient's blood pressure, pulse, and oxygen saturations were monitored continuously. The Colonoscope was introduced through the mouth, and advanced to the second part of duodenum. The upper GI endoscopy was accomplished without difficulty. The patient tolerated the procedure well. Moderate Sedation: Moderate (conscious) sedation was administered by the endoscopy nurse and supervised by the endoscopist. The patient's oxygen saturation, heart rate, blood pressure and response to care were monitored. Total physician intraservice time was 15 minutes. Scope In: 5:04:42 PM Scope Out: 5:51:45 PM Total Procedure Duration Time 0 hours 47 minutes 3 seconds Findings: LA Grade C (one or more mucosal breaks continuous between tops of 2 or more mucosal folds, less than 75% circumference) esophagitis with no bleeding was found 34 to 40 cm from the incisors. There was evidence of an intact gastrostomy with a patent G-tube present in the gastric body. The PEG required removal because it was coiled. The PEG was removed percutaneously. Removal was easily accomplished. An externally removable 8.5 Fr EndoVive Ragigoo-Nel-CEJ (TTP) PEG-J gastrostomy tube was lubricated. The guide wire was passed through the existing G-tube port and snared endoscopically. The endoscope and snare were then removed, pulling the wire out through the mouth. The g-tube was passed over the guidewire through the mouth, into the stomach and out through the G-tube port. The bumper was attached to the gastrostomy tube. The feeding tube was then cut to an appropriate length. The final position of the gastrostomy tube was confirmed by relook endoscopy, the distal tip was secured to the bowel wall with a clip, and skin marking noted to be 4 cm at the external bumper. The final tension and compression of the abdominal wall by the PEG tube and external bumper were checked. The tube was capped, and the tube site was cleaned and dressed. The second portion of the duodenum was normal. Biopsies were taken with a cold forceps for histology. Verification of patient identification for the specimen was done. Estimated blood loss was minimal. Impression: - LA Grade C reflux esophagitis. - Intact gastrostomy with a patent G-tube present. - Normal second portion of the duodenum. Biopsied. - The PEG was removed because it was coiled, and replaced with an externally removable PEG. Recommendation: - Return patient to [facility] for [facility] care. - Clear liquid diet. - Continue present medications. - Await pathology results. Procedure Code(s): --- Professional --- 01802, Esophagogastroduodenoscopy, flexible, transoral; with directed placement of percutaneous gastrostomy tube 70330, Esophagogastroduodenoscopy, flexible, transoral; with biopsy, single or multiple G0500, Moderate sedation services provided by the same physician or other qualified health hearing care professional performing a gastrointestinal endoscopic service that sedation supports, requiring the presence of an independent trained observer to assist in the monitoring of the patient's level of consciousness and physiological status; initial 15 minutes of intra-service time; patient age 5 years or older (additional time may be reported with 54779, as appropriate) CPT copyright 2017 [employer]. All rights reserved. The codes documented in this report are preliminary and upon inside sales recruiter review may be revised to meet current compliance requirements. Cyril Morfin DO 01/05/2022 6:19:13 PM This report has been signed electronically. Number of Addenda: 1 Note Initiated On: 01/05/2022 2:17 PM Addendum Number: 1 Addendum Date: 06/08/2022 6:23:06 AM MAC was used as sedation for this procedure. Cyril Morfin DO 06/08/2022 6:23:10 AM This report has been signed electronically.
--- NOTE | 2022-01-05 18:20 | OP.CCLET_ITS ---
[facility]08/2022 [facility] procedure for Mónica Delaney [facility] This procedure was performed on December. My impressions and recommendations are as follows: Impressions : - LA Grade C reflux esophagitis. - Intact gastrostomy with a patent G-tube present. - Normal second portion of the duodenum. Biopsied. - The PEG was removed because it was coiled, and replaced with an externally removable PEG. Recommendations : - Return patient to [facility] for ongoing care. - Clear liquid diet. - Continue present medications. - Await pathology results. My findings are described in the full procedure note, which is enclosed. If I can be of further assistance, please feel free to contact me at . Sincerely, Cyril Friend, 01/05/2022 6:19:13 PM This report has been signed electronically.
[2022-01-05] MEDS: TPN - Clinimix E 8%-14% Soln 2,000 ML with Multivitamins 10 ML, Trace Elements 1 ML, Fo... 84 ML IV (19:43)
[2022-01-05] MEDS: Morphine 2 MG/ML Syringe IV (21:25)
[2022-01-06] VITALS (11 sets, daily range): BP systolic 113–139; BP diastolic 79–98; PULSE 96–131; RESP 18–22; TEMP 36.1–36.8; O2SAT 6–95
[2022-01-06] MEDS: Morphine 2 MG/ML Syringe IV ×5 (00:41→17:35)
[2022-01-06] MEDS: Ondansetron 4 MG/2 ML Vial IV ×2 (00:59→10:07)
[2022-01-06] MEDS: 0.9% Saline Lock 10 ML Syringe IV ×6 (00:59→17:35)
[2022-01-06] MEDS: LORazepam 0.5 MG Tablet PO ×4 (01:02→23:20)
[2022-01-06] MEDS: 0.9% Normal Saline 1,000 ML 150 ML IV ×3 (01:37→14:51)
[2022-01-06 04:56] LABS: Absolute Lymphocyte Count 0.62 X10^3/uL (0.83-4.51); Absolute Neutrophil Count 17.2 X10^3/uL (2.0-7.7); Basophil# 0.09 X10^3/uL; Basophil% 0.5 % (0-1); Eosinophil# 0.22 X10^3/uL; Eosinophils% 1.1 % (0-5); Hematocrit 32.6 % (37-47); Hemoglobin 10.7 g/dL (12.0-15.0); Lymphocyte # 0.62 X10^3/ul (0.83-4.51); Lymphocyte % 3.1 % (19-41); Mean Corp Hgb Conc 32.8 g/dL (32-36); Mean Corpuscular Hgb 29.4 pg (27.0-32.0); Mean Corpuscular Volume 89.6 fL (81-99); Mean Platelet Vol. 11.1 fl (6.2-12.0); Monocyte# 0.87 X10^3/uL; Monocyte% 4.4 % (0-10); NRBC Flagged by Analyzer 0.1 % (0-5); Neutrophil % 86.1 % (47-70); Platelet Count 250 K/mm3 (150-450); RBC Distribution Width CV 16.8 % (11.6-14.6); RBC Distribution Width SD 54.7 fl (35.1-43.9); Red Blood Count 3.64 M/mm3 (4.2-5.4)
[2022-01-06 05:23] LABS: ALB/GLOB Ratio 0.3 RATIO (0.9-2.4); AST(SGOT) 28 U/L (15-37); Alanine Aminotransfer ALT/SGPT 34 U/L (13-56); Albumin, Serum 1.7 g/dL (3.2-5.0); Alkaline Phosphatase 353 U/L (45-117); Anion Gap 8 (5-15); BUN 85 mg/dL (7-18); BUN/Creat Ratio 97.5 RATIO (10-20); Calcium,Total 8.2 mg/dL (8.5-10.1); Chloride 105 mmol/L (98-107); Creatinine, Serum 0.87 mg/dL (0.55-1.02); EST Glomerular Filtration Rate 73 mL/min (>60); Est Glom Filt Rate - Afr Amer 88 mL/min (>60); Estimated Creatinine Clearance 66.06 ml/min; Globulin 4.9 g/dL (2.2-4.2); Glucose 138 mg/dL (74-106); Magnesium 2.2 mg/dL (1.6-2.6); Potassium 4.1 mmol/L (3.5-5.1); Protein, Total 6.6 g/dL (6.4-8.2); Sodium Level 131 mmol/L (136-145)
[2022-01-06 05:24] LABS: Phosphorus 3.5 mg/dL (2.5-4.9)
[2022-01-06] MEDS: Enoxaparin 40 MG/0.4 ML Syringe SC (05:34)
[2022-01-06] MEDS: proCHLORPERazine 10 MG/2 ML Vial 5 MG IV (05:34)
[2022-01-06] MEDS: Polyethylene Glycol 3350 17 GM PACKET PO ×2 (09:51→19:58)
[2022-01-06] MEDS: Escitalopram Oxalate 20 MG Tablet PO (09:51)
--- NOTE | 2022-01-06 13:01 | NURSING ---
Pt leaving floor for small bowel series.
--- NOTE | 2022-01-06 13:34 | CASEMGMT ---
This RN CM to room to discuss d/c plan with pt and pt is out of the dept for testing at this time. CM to follow. SStaten RN CM
--- NOTE | 2022-01-06 13:45 | RAD_ITS ---
STUDY: SMALL BOWEL FOLLOW-THROUGH EXAMINATION THROUGH THE INDWELLING GASTROSTOMY TUBE. REASON FOR EXAM: Female, 51 years old. Partial bowel obstruction -- with Gastrografin through the PEG tube TECHNIQUE: 216 mL of GASTROGRAFIN was placed through the indwelling percutaneous gastrostomy. COMPARISON: None. FINDINGS: There is evidence of a gastroesophageal reflux. There is dilatation of the first and second portions of the duodenum. There is narrowing of the third portion of the duodenum. The examination was carried out to 60 minutes following the injection of the GASTROGRAFIN. There is no contrast distal to the ligament of Treitz. RAD/Small Bowel Series Only IMPRESSION: No contrast is seen distal to the ligament of Treitz. Narrowing of the distal third portion of the duodenum. Gastroesophageal reflux. Electronically Signed: Carlitos Roberts MD at 14:57 EDT ,
--- NOTE | 2022-01-06 15:04 | CASEMGMT ---
Addendum entered by Patience Reese 01/06/22 16:29: [facility] contact number is [phone]. Coco OLIVER CM Addendum entered by Patience Reese 01/06/22 16:10: This RN CM to room with Dr. Monet to discuss plan of care. Pt states she is aware the 'end is near.' Pt states her goal is quality of life and she only wants to spend as much time with son/mother at home as she can. Per Dr. Monet, pt will at least stay in hospital tonight as nutrition needs figured out. Pt taken off heart monitor at this time and is currently on 4L nc. Eliz, PCU charge, and pt's RN, Darleen advised pt Dr. Monet that pt/family should not be disturbed and that pt's mother/son are able to spend the night, if they wish. Pt/family would like to speak with pastoral care but unfortunately, Ray is not in today and message left with ED SW to f/u with pt/family. Call to [facility] and she will check on whether pt can have TPN while on hospice d/t obstruction. [facility] states they would not be able to get pt set up till at least tomorrow as well. [facility] was provided with PCU floor contact number as well as Dr. Monet's cell number at this time for further f/u. Eliz, PCU charge, updated on all, voices understanding. Coco RN CM Original Note: Pt's [facility] palliative DIRECTOR DATA ARCHITECTURE called in asking to speak with CM. This RN CM to room to discuss d/c plan with pt and pt states 'I agreed to hospice.' Call to Palliative DIRECTOR DATA ARCHITECTURE, Donna, and she states pt agreed to hospice yesterday and liasion attempted to call pt at 1300 but pt was out of the dept for small bowel series. Per Donna, pt's friend, Josseline(who works for [employer]), has been assisting her with decision making. Donna states that [facility], hospice liasion, will call this RN CM to discuss getting pt home today. Call from [facility] and this RN CM inquires about nutrition for pt as she is on TPN and clear liquid diet currently. [facility] is aware of pending small bowel series and after updated on pt, states she needs to make a few calls and then she will call this RN CM back. Dr. Monet and Coreen SW updated on all, voice understanding. Coco OLIVER CM
[2022-01-06] MEDS: Furosemide 40 MG/4 ML Vial IV (16:20)
--- NOTE | 2022-01-06 16:53 | PCM.PN.HOSP ---
Subjective Subjective Follow-up on CHANDLER/severe hypokalemia/GJ tube malfunction: Patient was seen and examined. She vomited on clear liquid diet. She underwent repeat EGD and tube was said to be called, this was exchanged. Postprocedure, patient has been having lots of output from the PEG tube, bilious fluid. Discussed with GI, patient underwent small bowel series that showed lack of contrast beyond the ligament of Treitz. Patient in the meantime had talked to her palliative care team, and was ready to transition to hospice. Would wait for hospice to set up for home hospice. Objective Data Objective Data Vital Signs: Vital Signs Temp Pulse Resp BP Pulse Ox 97.3 F L 116 H 18 133/98 H 94 01/06/22 16:00 01/06/22 16:00 01/06/22 16:00 01/06/22 16:00 01/06/22 16:00 Oxygen Flow Rate (L/min) 4 Oxygen Delivery Method Nasal Cannula Weight: 86.8 kg Body Mass Index (BMI) 32.1 Intake & Output: Intake and Output for Last 24 Hours 01/04/22 01/05/22 01/06/22 23:59 23:59 23:59 Intake Total 1859 / 1979 5738.53 / 5978.53 3957.5 / 3957.5 Output Total 1999 / 2749 2100 / 2099 1850 / 1850 Balance -140 / -770 3638.53 / 3878.53 2107.5 / 2107.5 Medical Nutrition Assessment Dietitian: Malnutrition Criteria Met Start: 01/04/22 13:47 Freq: Status: Active Protocol: Document 01/06/22 14:16 RMA (Rec: 01/06/22 14:17 RMA [id number]) Nutrition Malnutrition Evidence of Malnutrition Exists Yes Malnutrition (severe): Chronic Clinical Problem Chronic Disease or Condition Related Malnutrition Etiology severe, chronic malnutrition r /t GI dysfunction from colon cancer Signs/Symptoms as evidenced by estimated PO intake meeting <75% of estimated energy needs >3 months; unintentional 59.2#/24 % wt loss x5 months Status Active Problem Recommendation Dietitian Recommendations/Changes 1) Consulted by Dr. Monet to renew TPN orders. Day #3 TPN ordered today: 2L Clinimix 8% AA/ 14% dextrose w/ electrolytes, MVI, trace minerals, folic acid and 250mL 20% lipid solution to provide 2093 calories, 160 g protein. No famotidine, no insulin requested per providers order this day. 2) Daily wts, monitoring of electrolytes. 3) Continue clear liquids as tolerated--pt requesting grape juice. 4) Possible trialing of enteral nutrition via PEG/J earliest would be tomorrow depending on results of small bowel series ordered for later today. Will follow and provide recommendations for EN as indicated. Lab / Micro Data Result Diagrams: 01/06/22 04:27 01/06/22 04:27 Labs: Laboratory Results - last 24 hr 01/06/22 04:27: WBC 20.0 H, RBC 3.64 L, Hgb 10.7 L, Hct 32.6 L, MCV 89.6, MCH 29.4, MCHC 32.8, RDW Std Deviation 54.7 H, RDW Coeff of Mohsen 16.8 H, Plt Count 250, MPV 11.1, Immature Gran % (Auto) 4.800 H, Neut % (Auto) 86.1 H, Lymph % (Auto) 3.1 L, [place] % (Auto) 4.4, Eos % (Auto) 1.1, Baso % (Auto) 0.5, Absolute Neuts (auto) 17.2 H, Absolute Lymphs (auto) 0.62 L, Nucleated RBC % 0.1 01/06/22 04:27: Sodium 131 L, Potassium 4.1, Chloride 105, Carbon Dioxide 18.0 L, Anion Gap 8, BUN 85 H, Creatinine 0.87, Estim Creat Clear Calc 66.06, Est GFR (MDRD) Af Amer 88, Est GFR (MDRD) Non-Af 73, BUN/Creatinine Ratio 97.5 H, Glucose 138 H, Calcium 8.2 L, Magnesium 2.2, Total Bilirubin 0.40, AST 28, ALT 34, Alkaline Phosphatase 353 H, Total Protein 6.6, Albumin 1.7 L, Globulin 4.9 H, Albumin/Globulin Ratio 0.3 L 01/06/22 04:27: Phosphorus 3.5 Radiography Diagnostic Testing: Radiology Impression Small Bowel X-Ray 01/06/22 13:45 IMPRESSION: No contrast is seen distal to the ligament of Treitz. Narrowing of the distal third portion of the duodenum. Gastroesophageal reflux. Electronically Signed: Carlitos Roberts MD at 14:57 EDT , Physical Exam Narrative Physical exam: General: Alert, Oriented x3, cachectic, on 4 L of oxygen HEENT: Atraumatic Oral: Moist Mucosa Neck: Supple Lungs: Diminished to auscultation Cardiovascular: HS I+II, regular, no murmurs Abdomen: Dressing at the gastrostomy tube site appears intact, colostomy tube attached to the bag and draining greenish fluid, bowel sounds present, soft, non tender Extremities: No edema Skin: No rashes, No breakdown Neurological: Grossly intact Psych/Mental Status: Appropriate Assessment & Plan Assessment/Plan (1) Hypokalemia: (2) Acute renal failure: QUALIFIERS: Acute renal failure type: unspecified Qualified Code(s): N17.9 - Acute kidney failure, unspecified (3) Leukocytosis: QUALIFIERS: Leukocytosis type: unspecified Qualified Code(s): D72.829 - Elevated white blood cell count, unspecified (4) Gastrostomy complication: (5) Pleural effusion: (6) Severe protein-calorie malnutrition: (7) Colon cancer: QUALIFIERS: Colon location: ascending Qualified Code(s): C18.2 - Malignant neoplasm of ascending colon (8) Bowel obstruction: QUALIFIERS: Intestinal obstruction type: unspecified Intestinal obstruction extent: partial Qualified Code(s): K56.600 - Partial intestinal obstruction, unspecified as to cause PLAN: 1. Severe hypokalemia, replaced 2. CHANDLER, pre-renal likely secondary to acute GI losses, resolved, creatinine is back to baseline Discontinue IV fluids, recheck in a.m. 3. Small bowel obstruction secondary to malfunctioning GJ tube, status post PEG tube placement and attempt at GE placement Small bowel series shows complete small bowel obstruction; no contractions distal to the ligament of Treitz. 4. Moderate-sized left pleural effusion, status post thoracocentesis on 01/02/22 Fluid analysis was exudative, malignant. Pathology of fluid shows malignant cells consistent with metastatic adenocarcinoma. 5. Severe protein calorie malnutrition, continue TPN, baker doughnut following 6. Stage IV colon CA with omental mets, hospice appropriate now 7. History of DVT/PE: Eliquis on hold for pending procedure 8. Acute on chronic debility, unable to care for her, PT/OT to evaluate and treat 9. DVT PPx- on Lovenox SC 10. Disposition: Patient will be discharged possibly tomorrow for hospice at home Charges/Coding Visit Charges Inpatient E&M: 13938 Subs Hosp L2
[2022-01-06] MEDS: TPN - Clinimix E 8%-14% Soln 2,000 ML with Multivitamins 10 ML, Trace Elements 1 ML, Fo... 84 ML IV (17:15)
[2022-01-06] MEDS: Fat Emulsions 20% 250 ML IV (17:22)
--- NOTE | 2022-01-06 18:28 | PN_ITS ---
Subjective Subjective She is still complaining of a lot of abdominal pain. And she is having a lot of output from her stomal site. Objective Data Objective Data Vital Signs: Vital Signs Temp Pulse Resp BP Pulse Ox 97.3 F L 116 H 18 133/98 H 94 01/06/22 16:00 01/06/22 16:00 01/06/22 16:00 01/06/22 16:00 01/06/22 16:00 Oxygen Flow Rate (L/min) 4 Oxygen Delivery Method Nasal Cannula Weight: 191 lb 5.78 oz Body Mass Index (BMI) 32.1 Intake & Output: Intake and Output for Last 24 Hours 01/04/22 01/05/22 01/06/22 23:59 23:59 23:59 Intake Total 1859 / 1979 5738.53 / 5978.53 5887.3 / 5887.3 Output Total 1999 / 2099 2500 / 2500 Balance -140 / -770 3638.53 / 3878.53 3387.3 / 3387.3 Medical Nutrition Assessment Dietitian: Malnutrition Criteria Met Start: 01/04/22 13:47 Freq: Status: Active Protocol: Document 01/06/22 14:16 RMA (Rec: 01/06/22 14:17 RMA [id number]) Nutrition Malnutrition Evidence of Malnutrition Exists Yes Malnutrition (severe): Chronic Clinical Problem Chronic Disease or Condition Related Malnutrition Etiology severe, chronic malnutrition r /t GI dysfunction from colon cancer Signs/Symptoms as evidenced by estimated PO intake meeting <75% of estimated energy needs >3 months; unintentional 59.2#/24 % wt loss x5 months Status Active Problem Recommendation Dietitian Recommendations/Changes 1) Consulted by Dr. Monet to renew TPN orders. Day #3 TPN ordered today: 2L Clinimix 8% AA/ 14% dextrose w/ electrolytes, MVI, trace minerals, folic acid and 250mL 20% lipid solution to provide 2093 calories, 160 g protein. No famotidine, no insulin requested per providers order this day. 2) Daily wts, monitoring of electrolytes. 3) Continue clear liquids as tolerated--pt requesting grape juice. 4) Possible trialing of enteral nutrition via PEG/J earliest would be tomorrow depending on results of small bowel series ordered for later today. Will follow and provide recommendations for EN as indicated. Lab / Micro Data Result Diagrams: 01/06/22 04:27 01/06/22 04:27 Labs: Laboratory Results - last 24 hr 01/06/22 04:27: WBC 20.0 H, RBC 3.64 L, Hgb 10.7 L, Hct 32.6 L, MCV 89.6, MCH 29.4, MCHC 32.8, RDW Std Deviation 54.7 H, RDW Coeff of Mohsen 16.8 H, Plt Count 250, MPV 11.1, Immature Gran % (Auto) 4.800 H, Neut % (Auto) 86.1 H, Lymph % (Auto) 3.1 L, [place] % (Auto) 4.4, Eos % (Auto) 1.1, Baso % (Auto) 0.5, Absolute Neuts (auto) 17.2 H, Absolute Lymphs (auto) 0.62 L, Nucleated RBC % 0.1 01/06/22 04:27: Sodium 131 L, Potassium 4.1, Chloride 105, Carbon Dioxide 18.0 L , Anion Gap 8, BUN 85 H, Creatinine 0.87, Estim Creat Clear Calc 66.06, Est GFR (MDRD) Af Amer 88, Est GFR (MDRD) Non-Af 73, BUN/Creatinine Ratio 97.5 H, Glucose 138 H, Calcium 8.2 L, Magnesium 2.2, Total Bilirubin 0.40, AST 28, ALT 34, Alkaline Phosphatase 353 H, Total Protein 6.6, Albumin 1.7 L, Globulin 4.9 H , Albumin/Globulin Ratio 0.3 L 01/06/22 04:27: Phosphorus 3.5 Radiography Diagnostic Testing: Radiology Impression Small Bowel X-Ray 01/06/22 13:45 IMPRESSION: No contrast is seen distal to the ligament of Treitz. Narrowing of the distal third portion of the duodenum. Gastroesophageal reflux. Electronically Signed: Carlitos Roberts MD at 14:57 EDT , Physical Exam Const alert General Appearance: cooperative Orientation / Consciousness: oriented to person HEENT hearing grossly normal bilaterally Head and Scalp: normal to inspection Face and Sinus: face symmetric Nose: external nose normal Mouth: oral and palatal mucosa normal Eyes conjunctivae normal General Eye: normal appearance of both eyes Neck full ROM General: normal visual inspection Lymph Lymphatic: no lymphadenopathy noted Chest inspection of chest normal and palpation of chest normal Chest: symmetrical chest wall rise Resp normal respiratory effort Effort and Inspection: able to speak in complete sentences Cardio regular rate GI non-distended Percussion: normal to percussion Rectal Exam: deferred Neuro Speech: speech normal Gait (Neuro): normal gait Assessment & Plan Assessment/Plan (1) Bowel obstruction: QUALIFIERS: Intestinal obstruction type: unspecified Intestinal obstruction extent: partial Qualified Code(s): K56.600 - Partial intestinal obstruction, unspecified as to cause PLAN: 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 A feeding tube was placed into the duodenum but unfortunately it was not passed the ligament of Treitz and obstruction. She is still on TPN at this time. Patient states that she would like to become hospice however we do not know how to feed her if she goes on to hospice. (2) Severe protein-calorie malnutrition: PLAN: Severe protein, nutrition secondary to metastatic colon cancer. Poor prognosis. Charges/Coding Visit Charges Inpatient E&M: 90186 Subs Hosp L2
--- NOTE | 2022-01-06 18:40 | NURSING ---
[facility] called. Can do TPN. Will need script for TPN. Family will have to cook pickled meat daily [phone]
[2022-01-06] MEDS: morphine (oral solution) 10MG/0.5ML Syringe 5 MG PO (19:58)
--- NOTE | 2022-01-07 07:58 | NURSING ---
This RN went in the pt room to give AM meds and to check on pt around 0620. Pt was found unresponsive in the room, assessment done in room, and pulse was not present when auscultated and pulses felt on radial and pedal. We tried getting a response from pt but was not responding anymore. Multiple RNs on the floor confirmed time of @ 0650. Family is in room and patient was cleaned by RN and aide Tele monitor did not show any activity.
--- NOTE | 2022-01-07 08:23 | PCM.DEATH ---
Preliminary Cause of Preliminary Cause of Preliminary Cause of : Acute hypoxic respiratory failure secondary to probable aspiration pneumonitis/worsening pleural effusion Acute small bowel obstruction secondary to metastatic colon CA Date of Admission: 01/04/22 Date of : 01/07/22 Principle Diagnosis Problem List: Active and Suspected Problems (Updated 01/04/22 @ 12:[address] Josselin Monet MD) Leukocytosis (Acute) Hypokalemia (Acute) Acute renal failure (Acute) Severe protein-calorie malnutrition (Acute) Gastrostomy complication (Acute) Pleural effusion (Acute) Bowel obstruction (Acute) Hospital Course 51-year-old female with past medical history of metastatic colon carcinoma, on palliative chemotherapy, who comes in with intractable nausea and vomiting. Patient was previously admitted for 2 and half weeks and discharged 2 days prior to the current admission Patient was on TPN at home. She was discharged earlier on on a full liquid diet. Patient has a displaced GJ tube. She presented back to the emergency room with intractable nausea vomiting and found to be severely dehydrated with acute kidney injury as well as severe hypokalemia. Patient was admitted back to the hospital, her electrolytes were replaced. She was continued on IV fluids and TPN. Patient was seen by GI. She underwent upper endoscopy. Her PEG-J tube was found to be called. An attempt at placing it distantly was reportedly difficult. The distal tip of the PEG-J tube was secured to the bowel wall. Postprocedure, patient had a small bowel series that showed no contrast spillage around the proximal and mid jejunum. Patient in the meantime had decided on hospice. She however was aware that she was now going to be able to eat or drink. Hospice was said to be coordinating with if patient can have TPN. Patient was kept overnight with intention of being discharged the next morning home with hospice. Throughout the night, patient was reportedly restless. She slid out of bed once but did not hit her head. Patient was medicated and continued to rest. Her mother and son stayed with her throughout the night. She was found unresponsive around 0620. Time of was confirmed to be 0650 HRS. Assessment & Plan Assessment/Plan (1) Hypokalemia: (2) Acute renal failure: QUALIFIERS: Acute renal failure type: unspecified Qualified Code(s): N17.9 - Acute kidney failure, unspecified (3) Leukocytosis: QUALIFIERS: Leukocytosis type: unspecified Qualified Code(s): D72.829 - Elevated white blood cell count, unspecified (4) Gastrostomy complication: (5) Pleural effusion: (6) Severe protein-calorie malnutrition: (7) Colon cancer: QUALIFIERS: Colon location: ascending Qualified Code(s): C18.2 - Malignant neoplasm of ascending colon (8) Bowel obstruction: QUALIFIERS: Intestinal obstruction type: unspecified Intestinal obstruction extent: partial Qualified Code(s): K56.600 - Partial intestinal obstruction, unspecified as to cause Visit Charges Inpatient E&M: 79935 Disch Hosp
--- NOTE | 2022-01-07 10:37 | NURSING ---
[employer] [facility] inside sales account representative here to pickle maker patient. Patient's family left with pt's belonings, except blanket sent with patient to home.
--- NOTE | 2022-01-10 14:09 | CM.ED ---
NE Note NE called patient's mother, Jia and left a voice3 mail expressing sympthany for the passing of patient and offering supportive services. NE also stated if there was any support that the hospital and social work can provide to please let this contract technical writer know. NE left call back number. Jacy MAIER
--- NOTE | 2022-01-12 12:37 | CM.ED ---
NE called patient's mother, Jia and offered support. She said that she put her grandson and her's MD under the same doctor's office. Jia said that family was in and out. NE also advised that hospice offers grief counseling if in the future they thought it would be beneficial the counseling in available. Jia was also advise that if there is any issue that she can call and request to speak to social science research assistant. Jia was appreciative of the call. Plan: Emotional support provided Jacy MAIER
== END 2022-01-07 06:50 | DRG 640 ==
LOC: ED 10:34 → PCU 11:26
PROVIDERS: Internal Medicine Gastroenterology; Admitting Provider Internal Medicine; Emergency Provider Emergency Medicine; Visit Provider Internal Medicine
PROC: 0DJ08ZZ Inspection of Upper Intestinal Tract, Via Natural or Artificial Opening Endoscopic (ICD-10-PCS; CPT 43235; principal; 2022-01-05 16:10)
DX: E86.0 Dehydration (principal); E43 Unspecified severe protein-calorie malnutrition; J96.01 Acute respiratory failure with hypoxia; J69.0 Pneumonitis due to inhalation of food and vomit; R18.0 Malignant ascites; K56.600 Partial intestinal obstruction, unspecified as to cause; N17.9 Acute kidney failure, unspecified; C18.0 Malignant neoplasm of cecum; C18.2 Malignant neoplasm of ascending colon; C18.3 Malignant neoplasm of hepatic flexure; C78.6 Secondary malignant neoplasm of retroperitoneum and peritoneum; K94.23 Gastrostomy malfunction; J91.0 Malignant pleural effusion; E66.01 Morbid (severe) obesity due to excess calories; F41.9 Anxiety disorder, unspecified; E87.6 Hypokalemia; G43.909 Migraine, unspecified, not intractable, without status migrainosus; E88.09 Other disorders of plasma-protein metabolism, not elsewhere classified; K21.00 Gastro-esophageal reflux disease with esophagitis, without bleeding; F32.A Depression, unspecified; Z86.718 Personal history of other venous thrombosis and embolism; Z79.01 Long term (current) use of anticoagulants; Z79.899 Other long term (current) drug therapy; Z87.891 Personal history of nicotine dependence; Z68.32 Body mass index [BMI] 32.0-32.9, adult; R53.81 Other malaise; Z90.49 Acquired absence of other specified parts of digestive tract; Z51.5 Encounter for palliative care
CPT/HCPCS: 36415; 74176; 74250; 80048; 80053; 80076; 81001; 83735; 84100; 84478; 85025; 93005; 97110; 97116; 97162; 97166; 97535; 97802; 97803; 99251; 99284; J7030; A4216; G0463; J1940; J2405; J3490